=== PATIENT | female | born 1995 | race Caucasian/White ===

== ENCOUNTER → 2018-03-22 09:44 | Outpatient (CLI) | payer OTHER, SELFPAY ==
[2018-03-22 12:58] LABS: Anion Gap 9 (5-15); BUN 9 mg/dL (7-18); BUN/Creat Ratio 13.8 RATIO (10-20); Calcium,Total 8.3 mg/dL (8.5-10.1); Chloride 108 mmol/L (98-107); Cholesterol 116 mg/dL (200); Creatinine, Serum 0.65 mg/dL (0.55-1.02); EST Glomerular Filtration Rate 117 mL/min (>60); Est Glom Filt Rate - Afr Amer 142 mL/min (>60); Glucose 95 mg/dL (74-106); High Density Lipoprotein 43 mg/dL; Potassium 4.3 mmol/L (3.5-5.1); Sodium Level 144 mmol/L (136-145); Triglycerides 33 mg/dL; Very Low Density Lipoprotein 7 mg/dL (5-40)
== END ==
PROVIDERS: Visit Provider Family Medicine
DX: Z02.9 Encounter for administrative examinations, unspecified (principal)
CPT/HCPCS: 36415; 80048; 80061

== ENCOUNTER → 2018-06-10 16:53 | Outpatient (CLI) | payer OTHER, SELFPAY ==
[2018-05-02 09:46] VITALS: BMI 19.8
--- NOTE | 2018-06-10 17:23 | MRI_ITS ---
STUDY: MRI BRAIN WITH AND WITHOUT CONTRAST REASON FOR EXAM: Female, 23 years old. Known syrinx and Chiari. Headache. Pressure. TECHNIQUE: Standardized multiplanar fat and water weighted pulse sequences were obtained. 7 ml of Gadavist contrast material was administered intravenously for the contrast portion of the examination. COMPARISON: None. FINDINGS: Normal size of the ventricles and extra-axial spaces for the patient's age. Normal white matter tracts of the supratentorial brain. Normal bilateral basal ganglia. Normal thalami. There is no extra-axial fluid accumulation. Normal flow voids within the major intracranial circulation suggesting patency by spin echo criteria. Normal venous enhancement. There is no enhancing intra-axial or extra-axial abnormality. Normal sella turcica, pituitary gland, infundibular stalk, optic chiasm and hypothalamus. Normal tectal plate and pineal gland. Normal midbrain, kathia and medulla. Mild inferior cerebellar tonsillar herniation below the hubbard magnum by a proximally 7.5 mm. This is not out of keeping with the clinical history of Chiari I anomaly. This is causing narrowing of the foramen magnum. Normal cerebellum. Normal basal cisterns. Normal bilateral temporal bones. Normal bilateral internal auditory canals. No demonstrated orbital abnormality, within the constraints of a routine brain study. Normal visualized paranasal sinuses. Normal calvarium and skull base. Normal visualized soft tissue structures. Normal visualized upper cervical spine. MRI/Brain W/WO Contrast IMPRESSION: 1. Mild Chiari I anomaly without visible syrinx of the upper cervical spinal cord. 2. Normal MRI of the brain with and without intravenous contrast. Electronically Signed: Pipo Jama MD at 19:12 EST , Service support ,
--- NOTE | 2018-06-10 17:23 | MRI_ITS ---
STUDY: MRI CERVICAL SPINE WITH AND WITHOUT CONTRAST REASON FOR EXAM: Female, 23 years old. Note syrinx and Chiari. Headache. Pressure. TECHNIQUE: Standardized fat and water weighted pulse sequences were obtained in the sagittal and axial following I.V. administration of 7 ml of Gadavist contrast material. COMPARISON: None FINDINGS: Midline herniation of the inferior cerebellar tonsil by 8 mm below the foramen magnum. This is suggestive of mild Chiari I anomaly. This is causing stenosis of the foramen magnum but no associated visible syrinx of the cervical spinal cord but there is syrinx of the thoracic spinal cord. Normal anterior atlantoaxial articulation. Normal odontoid process. Normal cervical lordosis. Normal vertebral bodies and posterior osseous elements. C2-3: Normal endplates. Normal disc height, signal and morphology. Normal central canal and intervertebral neural foramina. C3-4: Normal endplates. Normal disc height, signal and morphology. Normal central canal and intervertebral neural foramina. C4-5: Normal endplates. Normal disc height, signal and morphology. Normal central canal and intervertebral neural foramina. C5-6: Normal endplates. Normal disc height, signal and morphology. Normal central canal and intervertebral neural foramina. C6-7: Normal endplates. Normal disc height, signal and morphology. Normal central canal and intervertebral neural foramina. C7-T1: Normal endplates. Normal disc height, signal and morphology. Normal central canal and intervertebral neural foramina. Normal cervical cord. Normal visualized soft tissue structures. MRI/Spine Cervical W/WO Contrast IMPRESSION: 1. Mild Chiari I anomaly with foramen magnum stenosis but without associated syrinx of the cervical spinal cord. There is, however, nonneoplastic syrinx of the thoracic spinal cord. Please see separate MRI thoracic spine report. 2. Normal MRI of the cervical spine with and without contrast. Electronically Signed: Pipo Jama MD at 19:23 EST , Service support ,
--- NOTE | 2018-06-10 17:24 | MRI_ITS ---
STUDY: MRI LUMBAR SPINE WITH AND WITHOUT CONTRAST REASON FOR EXAM: Female, 23 years old. Note syrinx and Chiari anomaly. Headache. Back pain. TECHNIQUE: Standardized fat and water weighted pulse sequences were obtained in the sagittal and axial planes. 7 ml of Gadavist contrast material was administered for the contrast portion of the examination. COMPARISON: 10/22/2013. FINDINGS: T12-L1: Normal endplates. Normal disc height, hydration and morphology. Normal bilateral facet joints. Normal central canal and bilateral lateral recesses. Normal bilateral intervertebral neural foramina. Normal lumbar lordosis. There is no substantial scoliosis. Normal conus medullaris that terminates at the upper L1 vertebral body level. T11-T12: (Sagittal only). Normal endplates. Normal disc height, hydration and morphology. Normal central canal and bilateral intervertebral neural foramina. T12-L1: (Sagittal only). Normal endplates. Normal disc height, hydration and morphology. Normal central canal and bilateral intervertebral neural foramina. L1-2: Normal endplates. Normal disc height, hydration and morphology. Normal bilateral facet joints. Normal central canal and bilateral lateral recesses. Normal bilateral intervertebral neural foramina. L2-3: Normal endplates. Normal disc height, hydration and morphology. Normal bilateral facet joints. Normal central canal and bilateral lateral recesses. Normal bilateral intervertebral neural foramina. L3-4: Normal endplates. Normal disc height, hydration and morphology. Normal bilateral facet joints. Normal central canal and bilateral lateral recesses. Normal bilateral intervertebral neural foramina. L4-5: Normal endplates. Normal disc height, hydration and morphology. Normal bilateral facet joints. Normal central canal and bilateral lateral recesses. Normal bilateral intervertebral neural foramina. L5-S1: Normal endplates. Normal disc height, hydration and morphology. Normal bilateral facet joints. Normal central canal and bilateral lateral recesses. Normal bilateral intervertebral neural foramina. Normal visualized sacral ala. Normal visualized paraspinous soft tissue structures. No abnormal enhancing lesions intradural lesion extradurally. MRI/Spine Lumbar W/WO Contrast IMPRESSION: 1. Normal enhanced and unenhanced MR examination of the lumbar spine. 2. No interval change when compared to 10/22/2013. COMMENT: Please see MRI thoracic spine showing benign nonneoplastic syrinx of the thoracic spinal cord from at least T3 down to T12. This is related to known Chiari I anomaly. Electronically Signed: Pipo Jama MD at 19:32 EST , Service support ,
--- NOTE | 2018-06-10 17:24 | MRI_ITS ---
STUDY: MRI THORACIC SPINE WITH AND WITHOUT CONTRAST REASON FOR EXAM: Female, 23 years old. Known syrinx and Chiari anomaly. Headache. Back pain. TECHNIQUE: 7 ml of Gadavist was administered intravenously for the contrast portion of the examination. COMPARISON: 11/19/2013. FINDINGS: Normal kyphosis of the thoracic spine. There is no substantial scoliosis. T1-2, T2-3, T3-4, T4-5, T5-6, T6-7, T7-8, T8-9, T9-10, T10-11, T11-12: Normal endplates. Normal disc hydration, heights and morphology of the corresponding intervertebral discs. Normal central canal and intervertebral neural foramina at the corresponding levels. Nonexpansile midline syrinx from at least T3 down to T12 did not enhance with contrast. Normal conus medullaris that terminates at the upper L1 vertebral body level. The soft tissue structures are unremarkable. There is no enhancing abnormality. MRI/Spine Thoracic W/WO Contrast IMPRESSION: 1. 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 This is presumably related to known Chiari I anomaly. 2. No MRI evidence of thoracic extruded disc fragment, spinal stenosis or cord compressing lesion. 3. No interval change when compared to 11/19/2013. Electronically Signed: Pipo Jama MD at 19:29 EST , Service support ,
--- OUTSIDE RECORDS SUMMARY | 2018-08-05 23:00 | XMS RPT_ITS ---
:1995 Author Organization OHIP Care Team Providers Name Role Phone MAG FLAHERTY Attending Unavailable OPAL COOMBS Primary Care Unavailable OPAL COOMBS Admitting Unavailable MYLA LARA Attending Unavailable OPAL COOMBS A Primary Care Unavailable MAG FLAHERTY Consulting Unavailable OPAL COOMBS Primary Care Unavailable MAG FLAHERTY Attending Unavailable Warren Melendez Attending Unavailable Tommy Pizano Primary Care Unavailable Su Roger Attending Unavailable Tommy Pizano Referring Unavailable JARED KUO Attending Unavailable JARED KUO Referring Unavailable Warren Melnedez Primary Care Unavailable JARED KUO Consulting Unavailable JARED KUO Attending Unavailable JARED KUO Referring Unavailable Warren Melendez Primary Care Unavailable JARED KUO Consulting Unavailable PROBLEMS PROBLEMS DATE TYPE CONDITION / CODE ATTENDING STATUS SOURCE 10/30/2017 Working Abnormal MYLA LARA [facility] Diagnosis coagulation T Hospital profile / Repository R79.1(ICD-10) 08/18/2017 Final Diagnosis Abnormal REYNOLD, [facility] (Discharge) coagulation MAG B Hospital profile / Repository R79.1(ICD-10) PROCEDURES PROCEDURES No Procedure Records FoundRESULTS RESULTS BRAIN W/WO CONTRAST Observed: 06/10/2018 Status: F Source: IGLESIA 5:25 PM [facility] REPOSITORY [facility] Imaging Services [address] [place] [address] Brain W/WO Contrast MR#: [id number] Acct: [id number] Name: CECY GALLEGOS Rep #: [id number] : 1995 F 23 From: Pipo Jama MD PCP: Warren Melednez MD Status: REG CLI Study: Brain W/WO Contrast Date of Exam: 06/10/18 Exam# [id number] Ordering Dr: CARMELA POOLE STUDY: MRI BRAIN WITH AND WITHOUT CONTRAST REASON FOR EXAM: Female, 23 years old. Known syrinx and Chiari. Headache. Pressure. TECHNIQUE: Standardized multiplanar fat and water weighted pulse sequences were obtained. 7 ml of Gadavist contrast material was administered intravenously for the contrast portion of the examination. COMPARISON: None. FINDINGS: Normal size of the ventricles and extra-axial spaces for the patient's age. Normal white matter tracts of the supratentorial brain. Normal bilateral basal ganglia. Normal thalami. There is no extra-axial fluid accumulation. Normal flow voids within the major intracranial circulation suggesting patency by spin echo criteria. Normal venous enhancement. There is no enhancing intra-axial or extra-axial abnormality. Normal sella turcica, pituitary gland, infundibular stalk, optic chiasm and hypothalamus. Normal tectal plate and pineal gland. Normal midbrain, kathia and medulla. Mild inferior cerebellar tonsillar herniation below the hubbard magnum by a proximally 7.5 mm. This is not out of keeping with the clinical history of Chiari I anomaly. This is causing narrowing of the foramen magnum. Normal cerebellum. Normal basal cisterns. Normal bilateral temporal bones. Normal bilateral internal auditory canals. No demonstrated orbital abnormality, within the constraints of a routine brain study. Normal visualized paranasal sinuses. Normal calvarium and skull base. Normal visualized soft tissue structures. Normal visualized upper cervical spine. MRI/Brain W/WO Contrast IMPRESSION: 1. Mild Chiari I anomaly without visible syrinx of the upper cervical spinal cord. 2. Normal MRI of the brain with and without intravenous contrast. Electronically Signed: Pipo Jama MD at 19:12 EST , Service support , CC: CARMELA POOLE; Warren Melendez MD Ecclesiastical Worker: Signed SPINE CERVICAL W/WO Observed: 06/10/2018 Status: F Source: IGLESIA CONTRAST 5:25 PM [facility] REPOSITORY [facility] Imaging Services [address] [place] [address] Spine Cervical W/WO Contrast MR#: [id number] Acct: [id number] Name: CECY GALLEGOS Rep #: [id number] : 1995 F 23 From: Pipo Jama MD PCP: Warren Melendez MD Status: REG CLI Study: Spine Cervical W/WO Contrast Date of Exam: 06/10/18 Exam# [id number] Ordering Dr: CARMELA POOLE STUDY: MRI CERVICAL SPINE WITH AND WITHOUT CONTRAST REASON FOR EXAM: Female, 23 years old. Note syrinx and Chiari. Headache. Pressure. TECHNIQUE: Standardized fat and water weighted pulse sequences were obtained in the sagittal and axial following I.V. administration of 7 ml of Gadavist contrast material. COMPARISON: None FINDINGS: Midline herniation of the inferior cerebellar tonsil by 8 mm below the foramen magnum. This is suggestive of mild Chiari I anomaly. This is causing stenosis of the foramen magnum but no associated visible syrinx of the cervical spinal cord but there is syrinx of the thoracic spinal cord. Normal anterior atlantoaxial articulation. Normal odontoid process. Normal cervical lordosis. Normal vertebral bodies and posterior osseous elements. C2-3: Normal endplates. Normal disc height, signal and morphology. Normal central canal and intervertebral neural foramina. C3-4: Normal endplates. Normal disc height, signal and morphology. Normal central canal and intervertebral neural foramina. C4-5: Normal endplates. Normal disc height, signal and morphology. Normal central canal and intervertebral neural foramina. C5-6: Normal endplates. Normal disc height, signal and morphology. Normal central canal and intervertebral neural foramina. C6-7: Normal endplates. Normal disc height, signal and morphology. Normal central canal and intervertebral neural foramina. C7-T1: Normal endplates. Normal disc height, signal and morphology. Normal central canal and intervertebral neural foramina. Normal cervical cord. Normal visualized soft tissue structures. MRI/Spine Cervical W/WO Contrast IMPRESSION: 1. Mild Chiari I anomaly with foramen magnum stenosis but without associated syrinx of the cervical spinal cord. There is, however, nonneoplastic syrinx of the thoracic spinal cord. Please see separate MRI thoracic spine report. 2. Normal MRI of the cervical spine with and without contrast. Electronically Signed: Pipo Jama MD at 19:23 EST , Service support , CC: CARMELA Melendez MD Ecclesiastical Worker: Signed SPINE THORACIC W/WO Observed: 06/10/2018 Status: F Source: IGLESIA CONTRAST 5:25 PM [facility] REPOSITORY [facility] Imaging Services [address] [place] [address] Spine Thoracic W/WO Contrast MR#: [id number] Acct: [id number] Name: ELCECY Mirela Rep #: [id number] : 1995 F 23 From: Pipo Jama MD PCP: Warren Melendez MD Status: REG CLI Study: Spine Thoracic W/WO Contrast Date of Exam: 06/10/18 Exam# [id number] Ordering Dr: CARMELA POOLE STUDY: MRI THORACIC SPINE WITH AND WITHOUT CONTRAST REASON FOR EXAM: Female, 23 years old. Known syrinx and Chiari anomaly. Headache. Back pain. TECHNIQUE: 7 ml of Gadavist was administered intravenously for the contrast portion of the examination. COMPARISON: 11/19/2013. FINDINGS: Normal kyphosis of the thoracic spine. There is no substantial scoliosis. T1-2, T2-3, T3-4, T4-5, T5-6, T6-7, T7-8, T8-9, T9-10, T10- 11, T11-12: Normal endplates. Normal disc hydration, heights and morphology of the corresponding intervertebral discs. Normal central canal and intervertebral neural foramina at the corresponding levels. Nonexpansile midline syrinx from at least T3 down to T12 did not enhance with contrast. Normal conus medullaris that terminates at the upper L1 vertebral body level. The soft tissue structures are unremarkable. There is no enhancing abnormality. MRI/Spine Thoracic W/WO Contrast IMPRESSION: 1. 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 This is presumably related to known Chiari I anomaly. 2. No MRI evidence of thoracic extruded disc fragment, spinal stenosis or cord compressing lesion. 3. No interval change when compared to 11/19/2013. Electronically Signed: Pipo Jama MD at 19:29 EST , Service support , CC: CARMELA POOLE; Warren Melendez MD Ecclesiastical Worker: Signed SPINE LUMBAR W/WO Observed: 06/10/2018 Status: F Source: IGLESIA CONTRAST 5:25 PM [facility] REPOSITORY [facility] Imaging Services [address] [place] [address] Spine Lumbar W/WO Contrast MR#: [id number] Acct: [id number] Name: CECY GALLEGOS Rep #: [id number] : 1995 F 23 From: Pipo Jama MD PCP: Warren Melendez MD Status: REG CLI Study: Spine Lumbar W/WO Contrast Date of Exam: 06/10/18 Exam# [id number] Ordering Dr: CARMELA POOLE STUDY: MRI LUMBAR SPINE WITH AND WITHOUT CONTRAST REASON FOR EXAM: Female, 23 years old. Note syrinx and Chiari anomaly. Headache. Back pain. TECHNIQUE: Standardized fat and water weighted pulse sequences were obtained in the sagittal and axial planes. 7 ml of Gadavist contrast material was administered for the contrast portion of the examination. COMPARISON: 10/22/2013. FINDINGS: T12-L1: Normal endplates. Normal disc height, hydration and morphology. Normal bilateral facet joints. Normal central canal and bilateral lateral recesses. Normal bilateral intervertebral neural foramina. Normal lumbar lordosis. There is no substantial scoliosis. Normal conus medullaris that terminates at the upper L1 vertebral body level. T11-T12: (Sagittal only). Normal endplates. Normal disc height, hydration and morphology. Normal central canal and bilateral intervertebral neural foramina. T12-L1: (Sagittal only). Normal endplates. Normal disc height, hydration and morphology. Normal central canal and bilateral intervertebral neural foramina. L1-2: Normal endplates. Normal disc height, hydration and morphology. Normal bilateral facet joints. Normal central canal and bilateral lateral recesses. Normal bilateral intervertebral neural foramina. L2-3: Normal endplates. Normal disc height, hydration and morphology. Normal bilateral facet joints. Normal central canal and bilateral lateral recesses. Normal bilateral intervertebral neural foramina. L3-4: Normal endplates. Normal disc height, hydration and morphology. Normal bilateral facet joints. Normal central canal and bilateral lateral recesses. Normal bilateral intervertebral neural foramina. L4-5: Normal endplates. Normal disc height, hydration and morphology. Normal bilateral facet joints. Normal central canal and bilateral lateral recesses. Normal bilateral intervertebral neural foramina. L5-S1: Normal endplates. Normal disc height, hydration and morphology. Normal bilateral facet joints. Normal central canal and bilateral lateral recesses. Normal bilateral intervertebral neural foramina. Normal visualized sacral ala. Normal visualized paraspinous soft tissue structures. No abnormal enhancing lesions intradural lesion extradurally. MRI/Spine Lumbar W/WO Contrast IMPRESSION: 1. Normal enhanced and unenhanced MR examination of the lumbar spine. 2. No interval change when compared to 10/22/2013. COMMENT: Please see MRI thoracic spine showing benign nonneoplastic syrinx of the thoracic spinal cord from at least T3 down to T12. This is related to known Chiari I anomaly. Electronically Signed: Pipo Jama MD at 19:32 EST , Service support , CC: CARMELA POOLE; Warren Melendez MD Ecclesiastical Worker: Signed URGENT CARE VISIT Observed: 05/02/2018 Status: F Source: HOLIDAY REPORT 12:17 PM [facility] REPOSITORY [facility] [address] [place] [address] OFFICE VISIT Date of Service: 05/02/18 MR#: [id number] Acct: [id number] Name: CECY GALLEGOS Rep #: [id number] : 1995 Provider: Su Roger Age/Sex: 23/F Location: [facility] Status: Signed Intake Vital Signs05/02/18 Height 5 ft 5 in 05/02/18 Weight: 119 lb 05/02/18 Body Mass Index (BMI) 19.8 05/02/18 Blood Pressure 112/74 Intake Visit Reasons: RASH ON FACE Wardrobe Specialist Required: No Accompanied by: SELF Is patient in pain?: No Allergies banana Allergy (Mild, Verified 05/02/18 09:47) RASH Medications meloxicam 7.5 mg tablet 7.5 mg PO DAILY 05/02/18 [History Confirmed 05/02/18] triamcinolone acetonide 0.1 % topical cream 1 applic TOPICAL BID #30 g 05/02/18 [Rx Confirmed 05/02/18] [facility], [facility] Surgical History H/O wisdom tooth extraction (Acute) Family History Father , BLOOD CLOT BLOOD CLOT Social History Smoking Status: Never smoker alcohol intake: current alcohol intake frequency: a few times a month Alcohol type: wine HPI HPI Details: CECY GALLEGOS, is a 23 F who presents to the office today for an urgent appointment. Patient states that she started with a rash on her face earlier this week. It is gotten progressively worse. She notes that it is scaling and it mclean to touch. She has not used any vpef-kym-qtdrdte medications for this. She has tried cooking oil to help with moisturizer. She states that this mclean also when she uses it. She has discontinued her use of her previous cosmetics as this is not changed in recent months though. She has not had any fevers or chills. She does not have any body aches. She does not have any symptoms of a URI. ROS Const Constitutional: No anorexia, body ache, chills, fatigue, fever(s) or headache(s) Eyes Eyes: No discharge or eye pain ENT ENT: No headache(s), ear pain, ear pressure, tinnitus, dizziness/vertigo, nasal congestion, nasal discharge, sinus pressure, dental pain or facial pain Resp Respiratory: No cough or chest congestion Cardio Cardiology: No dyspnea on exertion, shortness of breath or irregular heart rhythm Gastro GI: No vomiting, diarrhea or heartburn Skin Skin: Positive for rash Neuro Neurology: No headache(s) Endo Endocrine: No fatigue Exam Const General: cooperative, no acute distress Orientation: alert, oriented x3 [facility] Head: atraumatic, normocephalic Ears: TM's normal bilaterally Nose: nasal mucous membranes and turbinates normal Mouth: moist mucous membranes Throat: posterior oropharynx normal Eyes Visual Covarrubias: normal visual covarrubias by confrontation Periorbital: periorbital findings normal Eyelids: eyelids normal Conjunctivae: conjunctivae normal Sclera: sclerae normal Cornea: corneas normal Pupils: PERRL EOM: EOM intact bilaterally Neck Neck: no lymphadenopathy, trachea midline, supple Neck mass: No Thyroid: thyroid normal Resp Effort AND Inspection: normal respiratory effort Auscultation: Bilateral: Clear to Auscultation Cardio Palpation: normal PMI Rate: regular rate Rhythm: regular rhythm Heart Sounds: S1 normal, S2 normal, no click, no gallops, no murmurs, no rubs GI Auscultation: normal bowel sounds Percussion: normal to percussion Palpation: soft, no hepatosplenomegaly, nontender Skin Rashes: rashes noted (red raised areas scattered aover face, scaley skin noted ) Neuro General: alert, oriented x3, CN's II-XI intact bilaterally, no focal motor deficits Assessment AND Plan Problems 1. Dermatitis L30.9 Plan suspect that this is likely related to eczema, advised to use cream as directed. advised that if not improved to see PCP or fundraising specialist Medications New: Coding Level of Care Code Off vis,new,level 3 Diagnoses Dermatitis L30.9 05/02/18 1217 <Electronically signed by Su WILLETT> Date Su WILLETT Cosigner Signature: Date (if applicable) CC: BASIC METABOLIC Collected: 03/22/2018 Status: F Source: IGLESIA PROFILE ([facility]) 9:46 AM [facility] REPOSITORY TYPE CODE TESTS RESULT OUT OF RANGE REFERENCE UNITS LAB L501.0100 74-106 mg/dL Normal GLU 95 Result Comment: Please note revised GLUCOSE reference range effective 2017. LAB L501.1000 7-18 mg/dL Normal BUN 9 LAB L501.1100 0.55-1.02 mg/dL Normal CREAT,SERUM 0.65 Result Comment: The validity of the calculated GFR AND GFRAA in patients over 70 years has not been determined. Clinical correlation is essential. LAB L501.1110 >60 mL/min Normal EST GFR 117 Result Comment: Non- GFR Calc LAB L501.1115 >60 mL/min Normal EST GFR - AA 142 Result Comment: GFR Calc LAB L501.1300 10-20 RATIO Normal BUN/CRE 13.8 LAB L501.2200 8.5-10.1 mg/dL Low CA 8.3 LAB L501.5300 136-145 mmol/L NA Normal 144 LAB L501.5600 3.5-5.1 mmol/L K Normal 4.3 LAB L501.5900 98-107 mmol/L High CL 108 LAB L501.6100 21.0-32.0 mmol/L Normal CO2 27.0 LAB L501.6200 5-15 Normal GAP 9 Performed By: #### L500.2500, L500.4100 #### [facility] [address] [facility] [facility] [place], [place], [id number] LIPID PROFILE Collected: 03/22/2018 Status: F Source: IGLESIA 9:46 AM [facility] REPOSITORY TYPE CODE TESTS RESULT OUT OF RANGE REFERENCE UNITS LAB L501.4900 200 mg/dL Normal CHOL 116 Result Comment: <200 mg/dL Desirable 200-240 mg/dL Borderline >240 mg/dL High Risk LAB L501.5000 mg/dL Normal TRIG 33 Result Comment: The drugs N-Acetylcysteine and Metamizole may falsely depress this assay. Serum Triglycerides Reference Interval Normal <150 mg/dL Borderline high 150 - 199 mg/dL High 200 - 499 mg/dL Very High > or = 500 mg/dL LAB L501.6400 mg/dL Normal HDL 43 Result Comment: The drugs N-Acetylcysteine and Metamizole may falsely depress this assay. Reference Range HDL <40 mg/dL Low HDL Cholesterol HDL >or= 60 mg/dL High HDL Cholesterol LAB L501.6500 0-130 mg/dL Normal LDL 66 LAB L501.6600 5-40 mg/dL Normal VLDL 7 Performed By: #### L500.2500, L500.4100 #### [facility] [address] [place], [place], [id number] HOMOCYSTEINE-SERUM Collected: Status: F Source: BLU 08/18/2017 9:00 AM [facility] REPOSITORY TYPE CODE TESTS RESULT OUT OF REFERENCE UNITS RANGE LAB HOMOCYSTEINEQ <10.4 umol/L 7.2 Homocystein e-Serum Result Comment: Homocysteine is increased by functional deficiency of folate or vitamin B12. Testing for methylmalonic acid differentiates between these deficiencies. Other causes of increased homocysteine include renal failure, folate antagonists such as methotrexate and phenytoin, and exposure to nitrous oxide. Test Performed by Ray Skelton, [facility], [address] [place] [id number] Stanley Villela M.D., Ph.D., Director of Laboratories , CLIA [id number] LAB 89662-1([facility]) a Age at Specimen Collection = Performed By: #### HOMOCYSTEINEQ #### [facility] [address] [place] [address] ALLERGIES ALLERGIES DATE TYPE / CODE NAME / CODE REACTION SEVERITY SOURCE 05/02/2018 Drug banana/F0060 Rash [facility] Allergy/4160 76414([facility] [address](SNOMED ) Repository CT) ENCOUNTERS ENCOUNTERS ADMIT/DISCHARGE ACCOUNT NUMBER ADMITTING ENCOUNTER LOCATION SOURCE CLASS 06/18/2018 [id number] Ambulatory [facility] Repository 06/11/2018 [id number] [facility] ding:MRI Repository 06/10/2018 [id number] [facility] ding:MRI Repository 05/02/2018/05/02/20 [id number] Ambulatory BMSBuilding: [address] Repository 03/22/2018 [id number] [facility] ding:MFPLAB Repository 10/30/2017/10/31/19 [id number] [facility], Ambulatory [address] ding:OPRoom: Repository CLBed: CL 08/18/2017/08/18/19 [id number] Ambulatory [address] Repository PAYERS PAYERS ENCOUNTER GUARANTOR PAYER SUBSCRIBER SOURCE 06/18/2018 CECY HARRISB: Primary CECY HARRISB: Blu [id number] Insurance:SHEILA [id number] [facility] [place], [place] Number: [place] Repository [address]Czh: [id number] [id number] () e Date:5279-62-13Wmri Name:ELADIO CRAWFORD [place], [place] [address]VQ: 06/18/2018 Secondary CECY Dietz BEAMDOB: [place] Insurance:[facility] [id number] [facility] Number: [facility] [id number] [place], [place] Repository Date:2473-78-60Pyes [address]247 Name:ELADIO CRAWFORD [id number] BOWMAN [address]YS: 06/11/2018 CECY GALLEGOS4842 [facility] Insurance:[facility] BEAMDOB: [facility] [id number] Hospital [address]Xjm: 330) SERVICESPolicy Repository [phone] () Number: [id number] e Date:1538-68-07JW [address] [address]UNDNF[place], [place] [address]IZ: CHECK WEBSITE 06/11/2018 Secondary NOT GIVENUNK [place] Insurance:SELF PAY [facility] Number: Effective Repository Date:2018-06-02 06/10/2018 CECY GALLEGOS4842 [facility] Insurance:[facility] MUTUAL BEAMDOB: [facility] [id number] Hospital [address]Yzp: (330) SERVICESPolicy Repository [phone] () Number: [id number] e Date:3643-20-68UR [address] [address], [place] [address]YP: CHECK WEBSITE 06/10/2018 Secondary NOT GIVENUNK [place] Insurance:SELF PAY [facility] Number: Effective Repository Date:2018-06-02 05/02/2018 CECY DASH [facility] [id number] Insurance:[facility] MUTUAL BEAMDOB: [facility] [id number] [facility] Repository [address]Pgl: (330) Number: [phone] () [id number] e Date:2937-62-11EF [address] [address], [place] [address]RB: CHECK WEBSITE 05/02/2018 Secondary NOT GIVENUNK [place] Insurance:SELF PAY [facility] Number: Effective Repository Date:2018-05-02 03/22/2018 CECY DASH Primary CECY DASH [place] [id number] UZIEL Insurance:MEDICAL BEAMDOB: [facility] [id number] Hospital [address]Bvj: (330) Number: Repository [phone] () [id number] e Date:9897-01-61FU [facility] [address] [address]LH: 03/22/2018 Secondary NOT GIVENUNK [place] Insurance:SELF PAY [facility] Number: Effective Repository Date:2018-03-22 10/30/2017 CECY Dietz BEAMDOB: Primary CECY Dietz BEAMDOB: [place] [id number] [facility] Insurance:AETNAPolic [id number] [place], [place] y Number: [facility] [address]Kpd: [id number] [place] [address] Repository [id number] () Date:4612-10-89Eocx Name:ELADIO CRAWFORD [id number] PAOLO HERNÁNDEZ [address]IU: 08/18/2017 CECY Dietz BEAMDOB: Primary CECY Dietz BEAMDOB: [place] [id number] [place] Insurance:ANTHEM [id number] [place], [place] BCBS- BCPolicy [facility] [address]Siu: Number: [place] [address] Repository [id number] () [id number] e Date:3362-81-94Bygr Name:ELADIO CRAWFORD [address], [place] [address]JG:
== END ==
PROVIDERS: Family Provider Family Medicine; PCP Family Medicine
DX: G95.0 Syringomyelia and syringobulbia (principal)
CPT/HCPCS: 70553; 72156; 72157; 72158; A9585

== ENCOUNTER → 2018-06-11 17:17 | Outpatient (CLI) | payer OTHER, SELFPAY ==
--- OUTSIDE RECORDS SUMMARY | 2018-08-06 16:31 | XMS RPT_ITS ---
[...] STATUS SOURCE 10/30/2017 Working Abnormal MYLA LARA [facility] Diagnosis coagulation T Hospital profile / Repository R79.1(ICD-10) 08/18/2017 Final Diagnosis Abnormal REYNOLD, [facility] (Discharge) coagulation MAG B Hospital profile / Repository R79.1(ICD-10) PROCEDURES PROCEDURES No Procedure Records FoundRESULTS RESULTS BRAIN W/WO CONTRAST Observed: 06/10/2018 Status: F Source: IGLESIA 5:25 PM [facility] REPOSITORY [facility] [address] [place] [address] Brain W/WO Contrast MR#: [id number] Acct: [id number] Name: CECY GALLEGOS Rep #: [id number] : 1995 F 23 From: Pipo Jama MD PCP: Warren Melendez MD Status: REG CLI Study: Brain W/WO Contrast Date of Exam: 06/10/18 Exam# [id number] Ordering Dr: CARMELA POOLE STUDY: MRI BRAIN [...] , CC: CARMELA POOLE; Warren Melendez MD Development Technical Lead: Signed SPINE CERVICAL W/WO Observed: 06/10/2018 Status: F Source: IGLESIA CONTRAST 5:25 PM [facility] REPOSITORY [facility] [address] [place] [address] Spine Cervical W/WO Contrast MR#: [id number] Acct: [id number] Name: CECY GALLEGOS Rep #: [id number] : 1995 F 23 From: Pipo Jama MD PCP: Warren Melendez MD Status: REG CLI Study: Spine Cervical W/WO Contrast Date of Exam: 06/10/18 Exam# [id number] Ordering Dr: CARMELA POOLE STUDY: MRI CERVICAL [...] Service support , CC: CARMELA Melendez MD Development Technical Lead: Signed SPINE THORACIC W/WO Observed: 06/10/2018 Status: F Source: IGLESIA CONTRAST 5:25 PM [facility] REPOSITORY [facility] [address] [place] [address] Spine Thoracic W/WO Contrast MR#: [id number] Acct: [id number] Name: ELCECY Mirela Rep #: [id number] : 1995 F 23 From: Pipo Jama MD PCP: Warren Melendez MD Status: REG CLI Study: Spine Thoracic W/WO Contrast Date of Exam: 06/10/18 Exam# [id number] Ordering Dr: CARMELA POOLE STUDY: MRI THORACIC [...] , CC: CARMELA POOLE; Warren Melendez MD Development Technical Lead: Signed SPINE LUMBAR W/WO Observed: 06/10/2018 Status: F Source: IGLESIA CONTRAST 5:25 PM [facility] REPOSITORY [facility] [address] [place] [address] Spine Lumbar W/WO Contrast MR#: [id number] Acct: [id number] Name: CECY GALLEGOS Rep #: [id number] : 1995 F 23 From: Pipo Jama MD PCP: Warren Melendez MD Status: REG CLI Study: Spine Lumbar W/WO Contrast Date of Exam: 06/10/18 Exam# [id number] Ordering Dr: CARMELA POOLE STUDY: MRI LUMBAR [...] , CC: CARMELA POOLE; Warren Melendez MD Development Technical Lead: Signed URGENT CARE VISIT Observed: 05/02/2018 Status: F Source: VANLUE REPORT 12:17 PM [facility] REPOSITORY [facility] [address] [place] [address] OFFICE VISIT Date of Service: 05/02/18 MR#: [id number] Acct: [id number] Name: CECY GALLEGOS Rep #: [id number] : 1995 Provider: Su Roger Age/Sex: 23/F Location: [facility] Status: Signed Intake Vital Signs05/02/18 Height 5 ft 5 in 05/02/18 Weight: 119 lb 05/02/18 Body Mass Index (BMI) 19.8 05/02/18 Blood Pressure 112/74 Intake Visit Reasons: RASH ON FACE [employer] Dean Required: No Accompanied by: SELF Is patient in pain?: No Allergies banana Allergy (Mild, Verified 05/02/18 09:47) RASH Medications meloxicam 7.5 mg tablet 7.5 mg PO DAILY 05/02/18 [History Confirmed 05/02/18] triamcinolone acetonide 0.1 % topical cream 1 applic TOPICAL BID #30 g 05/02/18 [Rx Confirmed 05/02/18] [facility] Surgical History H/O wisdom tooth extraction (Acute) [...] to touch. She has not used any smhc-xub-gludedm medications for this. She has tried cooking [...] no acute distress Orientation: alert, oriented x3 [facility] Head: atraumatic, normocephalic Ears: TM's normal bilaterally [...] if not improved to see PCP or director orange Medications New: Coding Level of Care Code Off vis,new,level 3 Diagnoses Dermatitis L30.9 05/02/18 1217 <Electronically signed by Su WILLETT> Date Su WILLETT Cosigner Signature: Date (if applicable) CC: BASIC METABOLIC Collected: 03/22/2018 Status: F Source: IGLESIA PROFILE ([facility]) 9:46 AM [facility] REPOSITORY TYPE CODE TESTS RESULT OUT OF [...] 9 Performed By: #### L500.2500, L500.4100 #### [facility] [address] [facility] [place], [place], [id number] LIPID PROFILE Collected: 03/22/2018 Status: F Source: IGLESIA 9:46 AM [facility] REPOSITORY TYPE CODE TESTS RESULT OUT OF [...] 7 Performed By: #### L500.2500, L500.4100 #### [facility] [address] [facility]. [place], [place], [id number] HOMOCYSTEINE-SERUM Collected: Status: F Source: BLU 08/18/2017 9:00 AM [facility] REPOSITORY TYPE CODE TESTS RESULT OUT [...] nitrous oxide. Test Performed by Ray Skelton, [facility], [address] [place] [address] Stanley Villela M.D., Ph.D., Director of Laboratories , CLIA [id number] LAB 94088-2([facility]) a Age at Specimen Collection = Performed By: #### HOMOCYSTEINEQ #### [facility] [address] [place] [address] ALLERGIES ALLERGIES DATE TYPE / CODE NAME / CODE REACTION SEVERITY SOURCE 05/02/2018 Drug banana/F0060 Rash [facility] Allergy/4160 43617([facility] [address](SNOMED ) Repository CT) ENCOUNTERS ENCOUNTERS ADMIT/DISCHARGE ACCOUNT NUMBER ADMITTING ENCOUNTER LOCATION SOURCE CLASS 06/18/2018 [id number] Ambulatory [facility] Repository 06/11/2018 [id number] [facility] ding:MRI Repository 06/10/2018 [id number] [facility] ding:MRI Repository 05/02/2018/05/02/20 [id number] Ambulatory BMSBuilding: [address] Repository 03/22/2018 [id number] [facility] ding:MFPLAB Repository 10/30/2017/10/31/19 [id number] [facility], Ambulatory [address] ding:OPRoom: Repository CLBed: CL 08/18/2017/08/18/19 [id number] Ambulatory [address] Repository PAYERS PAYERS ENCOUNTER GUARANTOR PAYER SUBSCRIBER SOURCE 06/18/2018 CECY HARRISB: Primary CECY HARRISB: Blu [id number] Insurance:SHEILA [id number] [facility] [place], [place] Number: [place] Repository [address]Kul: [id number] () e Date:[id number] Name:ELADIO CRAWFORD [address], [place] [address]HY: 06/18/2018 Secondary CECY Dietz BEAMDOB: [place] Insurance:[facility] [id number] [facility] Number: [facility] [id number] [place], [place] Repository Date:[id number] [address] Name:ELADIO CRAWFORD 427132FEPAOLO BOWMAN [address]MU: 06/11/2018 CECY GALLEGOS4842 [facility] Insurance:[facility] BEAMDOB: [facility] [id number] Hospital [address]Mae: 330) SERVICESPolicy Repository [phone] () Number: [id number] e Date:7058-11-30[address] [address], [place] [address]PR: CHECK WEBSITE 06/11/2018 Secondary NOT GIVENUNK [place] Insurance:SELF PAY [facility] Number: Effective Repository Date:2018-06-02 06/10/2018 CECY GALLEGOS4842 [facility] Insurance:[facility] [employer]UAL BEAMDOB: [facility] [id number] Hospital [address]Jpz: (330) SERVICESPolicy Repository [phone] () Number: [id number] e Date:6468-31-24[address] [address], [place] [address]YW: CHECK WEBSITE 06/10/2018 Secondary NOT GIVENUNK [place] Insurance:SELF PAY [facility] Number: Effective Repository Date:2018-06-02 05/02/2018 CECY DASH Primary [facility] [id number] Insurance:[facility] M[employer] BEAMDOB: Count includes the [facility] [id number] Repository [address]Ezl: (330) Number: [phone] () [id number] e Date:4981-77-85[address] [address], [place] [address]RC: CHECK WEBSITE 05/02/2018 Secondary NOT GIVENUNK [place] Insurance:SELF PAY [facility] Number: Effective Repository Date:2018-05-02 03/22/2018 CECY DASH Primary CECY DASH [place] [id number] UZ[place] Insurance:MEDICAL BEAMDOB: [facility] [id number] Hospital [address]Bzf: (330) Number: Repository [phone] () [id number] e Date:2278-26-64[facility] [address], [place] [address]SS: 03/22/2018 Secondary NOT GIVENUNK [place] Insurance:SELF PAY [facility] Number: Effective Repository Date:2018-03-22 10/30/2017 CECY Dietz BEAMDOB: Primary CECY Dietz BEAMDOB: [place] [id number] [facility] Insurance:AETNAPolic [id number] [place], [place] y Number: [facility] [id number]: [id number] [place] [address] Repository [id number] () Date:8245-99-31Tczz Name:ELADIO CRAWFORD [id number] PAOLO [place] [address]XQ: 08/18/2017 CECY Dietz BEAMDOB: Primary CECY Dietz BEAMDOB: [place] [id number] [place] Insurance:[employer] [id number] [place], [place] BCBS- BCPolicy [facility] [address]Cdq: Number: [place] [address] Repository [id number] () [id number] e Date:8237-53-64Telk Name:ELADIO CRAWFORD [address], [place] [address]CL:
== END ==
PROVIDERS: Family Provider Family Medicine; PCP Family Medicine
DX: G95.0 Syringomyelia and syringobulbia (principal)

== ENCOUNTER 2018-09-01 17:00 | Outpatient (RCR) | payer OTHER, SELFPAY ==
--- NOTE | 2018-08-03 13:14 | HP.PTEVAL_ITS ---
Patient's Visit Information CECY GALLEGOS is a 23 year old F referred to Physical Therapy by CORBY BUNCH with a diagnosis of Arnold Chiari syndrome. Date of Evaluation: 07/28/18 Physical Therapist: Dat Ledesma DPT - Visit Plan Frequency: 2x /Week Duration: 4-6 Weeks Plan: Start with DN throughout scapular region, cervical spine and suboccipital region. Add in postural strengthening as tolerated. Exercise guidleines given, follow to tolerance. May progress as tolerated. - Subjective Findings: Pt. is here today for her initial evaluation with diagnosis of Arnold Chiari syndrome. Pt. reports her main symptoms being frequent headaches. Pt. has diagnosed with a syrinx then with chiari syndrome. Pt. was oringially recomended to hav surgery, but then was suggested to work on posture and muscle tension reduction by alternate physician. Pt. is a [employer] by trade working in [employer] system. She enjoys running and working out, but reports being tentative to complete due to thinking this may trigger her symptoms. Pt. has trialed dry needling with good succces and has started working on postural exercises on own. Pt. reports headaches starting in back of head and wrapping to temporal region and behind both eyes. Pt. is hopeful to reduce symptoms in order to get back to all recreational activities without limitations. - Pain Headache Pain Intensity (Out of 10): 3 Pain Intensity Range: 1, 8 - Objective POSTURE: Pt. has sligth FH posture. She also has rounded shoulders with protracted scapulea bilaterally. Pt. is able to correct, but difficult to maintain. PALPATION: Pt. has increased tenderness at bilateral UT, bilateral levator scapulea, bilatera cervical erector spinea and bilateral suboccipital muscles. NEURO: PT. has normal DTR and normal sensation of bilateral LEs. Pt. has no signs of upper limb tension. ROM: CERVICAL SPINE: normal ROM, tigntness reported, but motion with normal. Pt. has normal shoulder ROm without issues. MMT: Pt. has 5-/5 general strength throughout upper body, no increase in symptoms with MMT. Pt. has difficutly maintaining proper posture with exercises and upper body movements. GAIT: Normal gait pattern noted. STAIRS: Pt. reports no pain or issues with negotiation. Reciprocal pattern. - Goals Goal 1:: Pt. to be I with HEP. Goal Time Frame: 4-6 Weeks Goal 2:: Pt. to have decreased KOLB to 0-2/10 with daily activities. Goal Time Frame: 4-6 Weeks Goal 3:: Pt. to have reduced KOLB frequency to 1-2 per week allowing for increased quality of life. Goal Time Frame: 4-6 Weeks Goal 4:: Pt. to demonstrate improved posture throughout PT sessino indicating increased postural awareness. Goal Time Frame: 4-6 Weeks - Rehabilitation Potential Physical Therapy Diagnosis: Pt. has signs and symptoms consistent with Arnold Chiari syndrome. Pt. has poor posture throughout upper body, increased KOLB and dififculty maintaining proper posture during exercises and work related activities. Pt. would benefit from PT to reduce muscle tension and improve posture with daily activities and exercise. Rehabilitation Potential: Good - Anticipated Interventions Patient/Client Instruction: Educate patient on: Condition, Plan of Care, Risk Factors, Benefits of Fitness Program For the Purpose of:: To improve decision making, To facilitate caregiver knowledge, To improve self management, To prevent re-injury, To improve ability to perform tasks related to life management, To improve tolerance to ADL's Therapeutic Exercise to Include: Strength training, Power training, Endurance training, Postural training, Flexibilty training, Passive ROM, Active ROM, Scapular Strength/Stabilization For the Purpose of:: To decrease pain, To increase ROM, To improve nutrient delivery to tissue, To increase oxygenation perfusion, To improve muscle performance and motor function, To improve ability to perform ADL's, To improve health of tissue, To decrease soft tissue restriction, To increase flexi bility/ROM Manual Therapy Techniques to Include: Passive ROM, Functional dry needling, Soft tissue mobilization For the Purpose of:: To decrease pain, To decrease swelling/inflammation, To increase ROM, To improve nutrient delivery to tissue, To increase oxygenation perfusion, To improve health of tissue, To decrease soft tissue restriction, To increase flexibility/ROM Thank you for the opportunity to evaluate your patient. For Medicare and Medicare HMO plans, please review the plan of care and approve it. It will need to be FAXED BACK to us at [phone] for Medicare purposes. For Medicare only, by signing this I certify the plan of care. Please let me know if there are questions or concerns regarding this plan of care. Physician Signature: Date:
--- OUTSIDE RECORDS SUMMARY | 2018-10-02 16:46 | XMS RPT_ITS ---
:1995 Author Organization OHIP Care Team Providers Name Role Phone MAG FLAHERTY Attending Unavailable OPAL COOMBS Primary Care Unavailable OPAL COOMBS Admitting Unavailable MYLA LARA Attending Unavailable OPAL COOMBS Primary Care Unavailable MAG FLAHERTY Consulting Unavailable OPAL COOMBS Primary Care Unavailable MAG FLAHERTY Attending Unavailable JARED KUO Attending Unavailable JARED KUO Referring Unavailable Warren Melendez Primary Care Unavailable JARED KUO Consulting Unavailable Warren Melendez Attending Unavailable Tommy Pizano Primary Care Unavailable Su Roger Attending Unavailable Tommy Pizano Referring Unavailable JARED KUO Attending Unavailable JARED KUO Referring Unavailable Warren Melendez Primary Care Unavailable JARED KUO Consulting Unavailable JARED KUO Attending Unavailable JARED KUO Referring Unavailable MelendezWarren fonseca Primary Care Unavailable JARED KUO Consulting Unavailable PROBLEMS PROBLEMS DATE TYPE CONDITION / CODE ATTENDING STATUS SOURCE 10/30/2017 Working Abnormal MYLA LARA [facility] Diagnosis coagulation T Hospital profile / Repository R79.1(ICD-10) 08/18/2017 Final Diagnosis Abnormal REYNOLD [facility] (Discharge) coagulation MAG B Hospital profile / Repository R79.1(ICD-10) PROCEDURES PROCEDURES No Procedure Records FoundRESULTS RESULTS INITAL EVALUATION (1) Observed: 08/03/2018 Status: F Source: [place] - PT 1:14 PM [facility] REPOSITORY [facility] Physical [facility] [address] [place] [address] Rd. [address] [place] [address] / REHABILITATION SERVICES INITIAL EVALUATION MR#: [id number] Acct: [id number] Name: CECY GALLEGOS Rep #: [id number] : 1995 23 From: Dat Ledesma DPT Referring DrMaureen: Status: REG RCR Insurance: [facility] SERVICES SELF PAY INSURANCE Patient's Visit Information CECY GALLEGOS is a 23 year old F referred to Physical Therapy by CORBY BUNCH with a diagnosis of Arnold Chiari syndrome. Date of Evaluation: 07/28/18 Physical Therapist: Dat Ledesma DPT - Visit Plan Frequency: 2x /Week Duration: 4-6 Weeks Plan: Start with DN throughout scapular region, cervical spine and suboccipital region. Add in postural strengthening as tolerated. Exercise guidleines given, follow to tolerance. May progress as tolerated. - Subjective Findings: Pt. is here today for her initial evaluation with diagnosis of Arnold Chiari syndrome. Pt. reports her main symptoms being frequent headaches. Pt. has diagnosed with a syrinx then with chiari syndrome. Pt. was oringially recomended to hav surgery, but then was suggested to work on posture and muscle tension reduction by alternate physician. 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 She enjoys running and working out, but reports being tentative to complete due to thinking this may trigger her symptoms. Pt. has trialed dry needling with good succces and has started working on postural exercises on own. Pt. reports headaches starting in back of head and wrapping to temporal region and behind both eyes. Pt. is hopeful to reduce symptoms in order to get back to all recreational activities without limitations. - Pain Headache Pain Intensity (Out of 10): 3 Pain Intensity Range: 1, 8 - Objective POSTURE: Pt. has sligth FH posture. She also has rounded shoulders with protracted scapulea bilaterally. Pt. is able to correct, but difficult to maintain. PALPATION: Pt. has increased tenderness at bilateral UT, bilateral levator scapulea, bilatera cervical erector spinea and bilateral suboccipital muscles. NEURO: PT. has normal DTR and normal sensation of bilateral LEs. Pt. has no signs of upper limb tension. ROM: CERVICAL SPINE: normal ROM, tigntness reported, but motion with normal. Pt. has normal shoulder ROm without issues. MMT: Pt. has 5-/5 general strength throughout upper body, no increase in symptoms with MMT. Pt. has difficutly maintaining proper posture with exercises and upper body movements. GAIT: Normal gait pattern noted. STAIRS: Pt. reports no pain or issues with negotiation. Reciprocal pattern. - Goals Goal 1:: Pt. to be I with HEP. Goal Time Frame: 4-6 Weeks Goal 2:: Pt. to have decreased KOLB to 0-2/10 with daily activities. Goal Time Frame: 4-6 Weeks Goal 3:: Pt. to have reduced KOLB frequency to 1-2 per week allowing for increased quality of life. Goal Time Frame: 4-6 Weeks Goal 4:: Pt. to demonstrate improved posture throughout PT sessino indicating increased postural awareness. Goal Time Frame: 4-6 Weeks - Rehabilitation Potential Physical Therapy Diagnosis: Pt. has signs and symptoms consistent with Arnold Chiari syndrome. Pt. has poor posture throughout upper body, increased KOLB and dififculty maintaining proper posture during exercises and work related activities. Pt. would benefit from PT to reduce muscle tension and improve posture with daily activities and exercise. Rehabilitation Potential: Good - Anticipated Interventions Patient/Client Instruction: Educate patient on: Condition, Plan of Care, Risk Factors, Benefits of Fitness Program For the Purpose of:: To improve decision making, To facilitate caregiver knowledge, To improve self management, To prevent re-injury, To improve ability to perform tasks related to life management, To improve tolerance to ADL's Therapeutic Exercise to Include: Strength training, Power training, Endurance training, Postural training, Flexibilty training, Passive ROM, Active ROM, Scapular Strength/Stabilization For the Purpose of:: To decrease pain, To increase ROM, To improve nutrient delivery to tissue, To increase oxygenation perfusion, To improve muscle performance and motor function, To improve ability to perform ADL's, To improve health of tissue, To decrease soft tissue restriction, To increase flexibility/ROM Manual Therapy Techniques to Include: Passive ROM, Functional dry needling, Soft tissue mobilization For the Purpose of:: To decrease pain, To decrease swelling/inflammation, To increase ROM, To improve nutrient delivery to tissue, To increase oxygenation perfusion, To improve health of tissue, To decrease soft tissue restriction, To increase flexibility/ROM Thank you for the opportunity to evaluate your patient. For Medicare and Medicare HMO plans, please review the plan of care and approve it. It will need to be FAXED BACK to us at [phone] for Medicare purposes. For Medicare only, by signing this I certify the plan of care. Please let me know if there are questions or concerns regarding this plan of care. Physician Signature: Date: <Electronically signed by Dat Ledesma DPT> 08/03/18 1314 CC: Warren Melendez MD; CORBY BUNCH CLS Signed BRAIN W/WO CONTRAST Observed: 06/10/2018 Status: F Source: [place] 5:25 PM [facility] REPOSITORY [facility] Imaging Services [address] [place] [address] Brain W/WO Contrast MR#: [id number] Acct: [id number] Name: CECY GALLEGOS Rep #: [id number] : 1995 F 23 From: Pipo Jama MD PCP: Warren Melendez MD Status: REG CLI Study: Brain W/WO Contrast Date of Exam: 06/10/18 Exam# [id number] Ordering Dr: CARMELA POOLE STUDY: MRI BRAIN [...] , CC: CARMELA POOLE; Warren Melendez MD Waiver Analyst: Signed SPINE CERVICAL W/WO Observed: 06/10/2018 Status: F Source: [place] CONTRAST 5:25 PM [facility] REPOSITORY [facility] Imaging Services [address] [place] [address] Spine Cervical W/WO Contrast MR#: [id number] Acct: [id number] Name: CECY GALLEGOS Rep #: [id number] : 1995 F 23 From: Pipo Jama MD PCP: Warren Melendez MD Status: REG CLI Study: Spine Cervical W/WO Contrast Date of Exam: 06/10/18 Exam# [id number] Ordering Dr: CARMELA POOLE STUDY: MRI CERVICAL [...] , CC: CARMELA POOLE; Warren Melendez MD Waiver Analyst: Signed SPINE THORACIC W/WO Observed: 06/10/2018 Status: F Source: [place] CONTRAST 5:25 PM [facility] REPOSITORY [facility] Imaging Services [address] [place] [address] Spine Thoracic W/WO Contrast MR#: [id number] Acct: [id number] Name: CECY GALLEGOS Rep #: [id number] : 1995 F 23 From: Pipo Jama MD PCP: Warren Melendez MD Status: REG CLI Study: Spine Thoracic W/WO Contrast Date of Exam: 06/10/18 Exam# [id number] Ordering Dr: CARMELA POOLE STUDY: MRI THORACIC [...] , CC: CARMELA POOLE; Warren Melendez MD Waiver Analyst: Signed SPINE LUMBAR W/WO Observed: 06/10/2018 Status: F Source: [place] CONTRAST 5:25 PM [facility] REPOSITORY [facility] Imaging Services [address] [place] [address] Spine Lumbar W/WO Contrast MR#: [id number] Acct: [id number] Name: CECY GALLEGOS Rep #: [id number] : 1995 F 23 From: Pipo Jama MD PCP: Warren Melendez MD Status: REG CLI Study: Spine Lumbar W/WO Contrast Date of Exam: 06/10/18 Exam# [id number] Ordering Dr: CARMELA POOLE STUDY: MRI LUMBAR [...] , CC: CARMELA POOLE; Warren Melendez MD Waiver Analyst: Signed URGENT CARE VISIT Observed: 05/02/2018 Status: F Source: [place] REPORT 12:17 PM [facility] REPOSITORY [facility] [address] [place] [address] [address] [place] [address] OFFICE VISIT Date of Service: 05/02/18 MR#: [id number] Acct: [id number] Name: CECY GALLEGOS Rep #: [id number] : 1995 Provider: Su Roger Age/Sex: 23/F Location: [facility] [place] [place] Status: Signed Intake Vital Signs05/02/18 Height 5 ft 5 in 05/02/18 Weight: 119 lb 05/02/18 Body Mass Index (BMI) 19.8 05/02/18 Blood Pressure 112/74 Intake Visit 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 She has not used any etjv-zvh-lfxhhat medications for this. She has tried cooking [...] no acute distress Orientation: alert, oriented x3 HENMT Head: atraumatic, normocephalic Ears: TM's normal bilaterally [...] if not improved to see PCP or mixer operator tablets Medications New: Coding Level of Care Code Off vis,new,level 3 Diagnoses Dermatitis L30.9 05/02/18 1217 <Electronically signed by Su WILLETT> Date Su WILLETT Cosigner Signature: Date (if applicable) CC: BASIC METABOLIC Collected: 03/22/2018 Status: F Source: [place] PROFILE ([facility]) 9:46 AM [facility] REPOSITORY TYPE CODE TESTS RESULT OUT OF [...] 9 Performed By: #### L500.2500, L500.4100 #### [facility] Laboratory [address] [place], [place], [address] LIPID PROFILE Collected: 03/22/2018 Status: F Source: [place] 9:46 AM [facility] REPOSITORY TYPE CODE TESTS RESULT OUT OF [...] 7 Performed By: #### L500.2500, L500.4100 #### [facility] [address] [place], [address] HOMOCYSTEINE-SERUM Collected: Status: F [facility] 9:00 AM [facility] REPOSITORY TYPE CODE TESTS RESULT OUT OF REFERENCE UNITS RANGE LAB HOMOCYSTEINEQ <10.4 umol/L 7.2 Homocystein e-Serum Result Comment: Homocysteine is increased by functional deficiency of folate or vitamin B12. Testing for methylmalonic acid differentiates between these deficiencies. Other causes of increased homocysteine include renal failure, folate antagonists such as methotrexate and phenytoin, and exposure to nitrous oxide. Test Performed by [facility], [facility], [address] [place] [address] Stanley Villela M.D., Ph.D., Director of Laboratories , [facility] [id number] LAB [id number]([facility]) a Age at Specimen Collection = Performed By: #### HOMOCYSTEINEQ #### [facility] [address], [place] [address] ALLERGIES ALLERGIES DATE TYPE / CODE NAME / CODE REACTION SEVERITY SOURCE 05/02/2018 Drug banana/F0060 Rash [facility] Allergy/4160 03955([facility] Hospital [address](SNOMED ) Repository CT) ENCOUNTERS ENCOUNTERS ADMIT/DISCHARGE ACCOUNT NUMBER ADMITTING ENCOUNTER LOCATION SOURCE CLASS 08/06/2018 [id number] [facility] ding:PT Repository 06/18/2018 [id number] Ambulatory [facility] Repository 06/11/2018 [id number] Ambulatory [facility] ding:MRI Repository 06/10/2018 [id number] Ambulatory [facility] ding:MRI Repository 05/02/2018/05/02/20 [id number] Ambulatory BMSBuilding: [address] Repository 03/22/2018 [id number] [facility] ding:MFPLAB Repository 10/30/2017/10/31/19 [id number] [facility], Ambulatory [address] ding:OPRoom: Repository CLBed: CL 08/18/2017/08/18/[id number] Repository PAYERS PAYERS ENCOUNTER GUARANTOR PAYER SUBSCRIBER SOURCE 08/06/2018 CECY GALLEGOS4842 Primary [facility] BEAMDOB: [facility] [id number] Hospital [address]Ioh: (330) SERVICESPol[facility] Repository [phone] () Number: [id number] e Date:6143-71-88[address] [address], [place] [address]UP: CHECK WEBSITE 08/06/2018 Secondary NOT GIVENUNK [place] Insurance:SELF PAY [facility] Number: Effective Repository Date:2018-07-20 06/18/2018 CECY Mirela BEAMDOB: Primary CECY M BEAMDOB: Jonathon [id number] Insurance:[facility] [id number] [place], [place] Number: [place] Repository [address]Lph: [id number] [id number] () e Date:1395-23-25Rrtz Name:[address], [place] [address]AY: 06/18/2018 Secondary CECY Dietz BEAMDOB: Green [facility] [id number] [facility] Number: [facility] [id number] [place] Repository Date:4298-20-90Vfyk [address] Name:[address]ADIO [address] [address]DX: 06/11/2018 CECY DOWNS42 Primary [facility] Insurance:[facility] BEAMDOB: [facility] [id number] Hospital [address]Bgc: 330) SERVICESPolicy Repository [phone] () Number: [id number] e Date:5773-45-51[address] [address]QS[place], [place] [address]UT: CHECK WEBSITE 06/11/2018 Secondary NOT GIVENUNK [place] Insurance:SELF PAY [facility] Number: Effective Repository Date:2018-06-02 06/10/2018 CECY DOWNS42 Primary [facility] Insurance:[facility] BEAMDOB: [facility] [id number] Hospital [address]Dbu: (330) SERVICESPolicy Repository [phone] () Number: [id number] e Date:0746-37-49[address] [address], [place] [address]CY: CHECK WEBSITE 06/10/2018 Secondary NOT GIVENUNK [place] Insurance:SELF PAY [facility] Number: Effective Repository Date:2018-06-02 05/02/2018 CECY DASH Primary [facility] [id number] Insurance:[facility] MUTUAL BEAMDOB: [facility] [id number][facility] Hospital [facility]– MilwaukeePolic Repository [address]Xlb: (330) Number: [phone] () [id number] e Date:3982-73-73TK [address] [address]QKUSWPNBG, [place] [address]CN: CHECK WEBSITE 05/02/2018 Secondary NOT GIVENUNK [place] Insurance:SELF PAY [facility] Number: Effective Repository Date:2018-05-02 03/22/2018 CECY DASH Primary CECY Barcenasoster [id number] UZIEL Insurance:MEDICAL BEAMDOB: [facility] [id number] Hospital [address]Ldb: (330) Number: Repository [phone] () [id number] e Date:6672-11-90[address], [place] [address]RS: 03/22/2018 Secondary NOT GIVENUNK [place] Insurance:SELF PAY [facility] Number: Effective Repository Date:2018-03-22 10/30/2017 CECY Dietz BEAMDOB: Primary CECY Dietz BEAMDOB: Green [id number] [facility] Insurance:AETNAPolic [id number] [facility] [place] y Number: [facility] [address]Ipr: [id number] [facility] [place] [address] Repository [phone] () Date:8568-92-42Bqkp Name:[address] [address]ZH: 08/18/2017 CECY Dietz BEAMDOB: Primary CECY Dietz BEAMDOB: Green [id number] [place] Insurance:ANTHEM [id number] [facility], [place] BCBS- BCPolicy [facility] [address]Yai: Number: [facility] [address] Repository [id number] () [id number] e Date:1102-34-71Sxha Name:[address]FX[place], [place] [address]YV:
--- NOTE | 2018-10-18 10:51 | HP.PT.NRP ---
HP - Discharge Summary (1) - Patient Information CECY GALLEGOS was seen in my office for initial evaluation on 07/28/18. The following Plan of Care was established for this patient: Initial Frequency: 2x /Week Initial Duration: 4-6 Weeks - Anticipated Interventions Patient/Client Instruction: Educate patient on: Condition, Plan of Care, Risk Factors, Benefits of Fitness Program For the Purpose of:: To improve decision making, To facilitate caregiver knowledge, To improve self management, To prevent re-injury, To improve ability to perform tasks related to life management, To improve tolerance to ADL's Therapeutic Exercise to Include: Strength training, Power training, Endurance training, Postural training, Flexibilty training, Passive ROM, Active ROM, Scapular Strength/Stabilization For the Purpose of:: To decrease pain, To increase ROM, To improve nutrient delivery to tissue, To increase oxygenation perfusion, To improve muscle performance and motor function, To improve ability to perform ADL's, To improve health of tissue, To decrease soft tissue restriction, To increase flexibility/ROM Manual Therapy Techniques to Include: Passive ROM, Functional dry needling, Soft tissue mobilization For the Purpose of:: To decrease pain, To decrease swelling/inflammation, To increase ROM, To improve nutrient delivery to tissue, To increase oxygenation perfusion, To improve health of tissue, To decrease soft tissue restriction, To increase flexibility/ROM This patient was last seen in our office 09/01/18. Pertinent comments regarding their Physical therapy will appear below: Pt. was seen for her arnold chiari syndrome. Pt. was treated with DN, manual technique and postural exerices. Pt. was making some perogress, but was still concerned about her HAs and desired to have MRI. Pt. was to follow up with physician and then back with PT. Pt. has not been seen in ~6 weeks and will be DC from PT at this point in time. At this point I will be discontinuing this patient from physical therapy. I would be happy to see this patient again in the future if found appropriate by the physician. Thank you! Dat Ledesma, SANDRA
== END 2018-09-01 19:00 | disposition home or self-care (01) ==
LOC: PT 17:00
PROVIDERS: Family Provider Family Medicine; PCP Family Medicine
DX: G93.5 Compression of brain (principal)
CPT/HCPCS: 97110; 97140; 97161

== ENCOUNTER → 2018-10-26 17:17 | Outpatient (CLI) | payer OTHER, SELFPAY ==
[2018-10-26 15:50] VITALS: BMI 19.8
[2018-10-29 13:30] LABS: HPV Reflexed? NOT INDICATED
== END ==
PROVIDERS: Family Provider Family Medicine; PCP Family Medicine; Referring Provider Obstetrics & Gynecology; Visit Provider Obstetrics & Gynecology
DX: Z12.4 Encounter for screening for malignant neoplasm of cervix (principal)
CPT/HCPCS: 87624; 88175; G0145

== ENCOUNTER → 2019-03-21 15:58 | Outpatient (CLI) | payer OTHER, SELFPAY ==
[2018-10-26 15:50] VITALS: BMI 19.8
[2019-03-21 17:11] LABS: hCG Titer Quant., Serum < 1 mIU/mL (1-3)
== END ==
PROVIDERS: Family Provider Family Medicine; PCP Family Medicine; Referring Provider Obstetrics & Gynecology; Visit Provider Obstetrics & Gynecology
DX: N91.2 Amenorrhea, unspecified (principal)
CPT/HCPCS: 36415; 84702

== ENCOUNTER → 2019-04-07 16:54 | Outpatient (CLI) | payer OTHER, SELFPAY ==
[2019-04-07 15:15] VITALS: BMI 19.8
== END ==
PROVIDERS: Family Provider Family Medicine; PCP Family Medicine; Referring Provider Nurse Practitioner Women's Health; Visit Provider Nurse Practitioner Women's Health
DX: N90.89 Other specified noninflammatory disorders of vulva and perineum (principal)
CPT/HCPCS: 87255

== ENCOUNTER → 2019-05-20 09:32 | Outpatient (CLI) | payer OTHER, SELFPAY ==
[2019-04-25 14:13] VITALS: BMI 19.8
[2019-05-20 11:24] LABS: Anion Gap 7 (5-15); BUN 9 mg/dL (7-18); BUN/Creat Ratio 13.6 RATIO (10-20); Calcium,Total 8.9 mg/dL (8.5-10.1); Chloride 105 mmol/L (98-107); Cholesterol 131 mg/dL (200); Creatinine, Serum 0.66 mg/dL (0.55-1.02); EST Glomerular Filtration Rate 115 mL/min (>60); Est Glom Filt Rate - Afr Amer 139 mL/min (>60); Glucose 82 mg/dL (74-106); High Density Lipoprotein 45 mg/dL; Potassium 3.9 mmol/L (3.5-5.1); Sodium Level 140 mmol/L (136-145); Triglycerides 61 mg/dL; Very Low Density Lipoprotein 12 mg/dL (5-40)
[2019-05-21 11:40] LABS: HSV 1 IgG < 0.91 index (0.00-0.90); HSV 2 IgG < 0.91 index (0.00-0.90)
== END ==
PROVIDERS: Family Provider Family Medicine; PCP Family Medicine; Referring Provider Nurse Practitioner Women's Health; Visit Provider Nurse Practitioner Women's Health
DX: Z00.00 Encounter for general adult medical examination without abnormal findings (principal)
CPT/HCPCS: 36415; 80048; 80061; 82306; 84443; 86695; 86696

== ENCOUNTER 2019-08-17 16:00 | Outpatient (RCR) | payer OTHER, SELFPAY ==
[2019-04-25 14:13] VITALS: BMI 19.8
--- NOTE | 2019-08-31 11:56 | HP.PTEVAL_ITS ---
Patient's Visit Information CECY GALLEGOS is a 24 year old F referred to Physical Therapy by Warren Melendez MD with a diagnosis of Headaches. Date of Evaluation: 08/11/19 Physical Therapist: Dat Ledesma DPT - Visit Plan Frequency: 1x/Week Duration: 2-4 Months Plan: Start with DN and manual PT to work on tissue tension. Advise in exercises for posture as refresher for patient. - Subjective Findings: Pt. is here today for her initial evaluation with diagnosis of headaches. PMH: Chiari Malformation, been assessed by neruology. Pt. reports having frequent KOLB, with consistent increases. Pt. reports no trigger known. 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 Se has been able complete all recreational activity including running and gym strengtening, but does have increased symptoms with prolonged running. She reports no N/T. Pt. has had some success with DN previously and manaul techniques. She has been previously educated in postural strengthening which she continues to do. - Pain KOLB Pain Intensity (Out of 10): 5 Pain Intensity Range: 2, 10 - Objective POSTURE: Pt. has decent posture in sitting and standing, pt. has sign FH, but able to easity correct. PALPATION: Pt. is tender along B UT , B levator scapulea and B subocciptials. NEURO: Pt. has normal sensation adn normal DTR bilaterally UEs. ROM: CERVICAL SPINE: full ROM, incerase in symptoms with flexion and extension at end ragnes. Pt. has full ROM of B shoulders without increase in symptoms. MMT: Pt. has full strength throughout BUE and iso cervical spine 5/5. - Goals Goal 1:: LTG: Pt. to be I with HEP. Goal Time Frame: 4-6 Weeks Goal 2:: STG: Pt. to have 1-2 KOLB per week. Goal Time Frame: 2-4 Weeks Goal 3:: LTG: Pt. to complete all work and gym exercises daily with minmal increase in KOLB symptoms. Goal Time Frame: 4-6 Weeks Goal 4:: STG: Pt. to sleep throughout the night withotu increase in symptoms. Goal Time Frame: 2-4 Weeks - Rehabilitation Potential Physical Therapy Diagnosis: Pt. has signs and symptoms consistent with KOLB most likely due to her chiari formation. Pt. has good ROM and strength, but has some increased muscle tenion throughout her cervial spine and UT. Rehabilitation Potential: Good - Anticipated Interventions Patient/Client Instruction: Educate patient on: Condition, Plan of Care, Risk Factors, Benefits of Fitness Program For the Purpose of:: To foster healthy habits, To improve decision making, To facilitate caregiver knowledge, To improve self management, To prevent re- injury, To improve ability to perform tasks related to life management, To improve tolerance to ADL's Therapeutic Exercise to Include: Strength training, Power training, Endurance training, Balance training, Postural training, Flexibilty training, Passive ROM, Active ROM For the Purpose of:: To decrease pain, To increase ROM, To improve nutrient delivery to tissue, To increase oxygenation perfusion, To improve muscle performance and motor function Manual Therapy Techniques to Include: Mobilization, Passive ROM, Functional dry needling, Soft tissue mobilization For the Purpose of:: To decrease pain, To decrease swelling/inflammation, To increase ROM Thank you for the opportunity to evaluate your patient. For Medicare and Medicare HMO plans, please review the plan of care and approve it. It will need to be FAXED BACK to us at [phone] for Medicare purposes. For Medicare only, by signing this I certify the plan of care. Please let me know if there are questions or concerns regarding this plan of care. Physician Signature: Date:
--- NOTE | 2020-01-10 10:52 | HP.PTDCNRP_ITS ---
CECY GALLEGOS was seen in my office for initial evaluation on 08/11/19. The following Plan of Care was established for this patient: Initial Frequency: 1x/Week Initial Duration: 2-4 Months Patient/Client Instruction: Educate patient on: Condition, Plan of Care, Risk Factors, Benefits of Fitness Program For the Purpose of:: To foster healthy habits, To improve decision making, To facilitate caregiver knowledge, To improve self management, To prevent re- injury, To improve ability to perform tasks related to life management, To improve tolerance to ADL's Therapeutic Exercise to Include: Strength training, Power training, Endurance training, Balance training, Postural training, Flexibilty training, Passive ROM, Active ROM For the Purpose of:: To decrease pain, To increase ROM, To improve nutrient delivery to tissue, To increase oxygenation perfusion, To improve muscle performance and motor function Manual Therapy Techniques to Include: Mobilization, Passive ROM, Functional dry needling, Soft tissue mobilization For the Purpose of:: To decrease pain, To decrease swelling/inflammation, To increase ROM This patient was last seen in our office 08/17/19. Pertinent comments regarding their Physical therapy will appear below: Pt. has not been seen in several months and will be DC from PT at this point intime. At this point I will be discontinuing this patient from physical therapy. I would be happy to see this patient again in the future if found appropriate by the physician. Thank you! Dat Ledesma, SANDRA
== END 2019-08-17 19:00 | disposition home or self-care (01) ==
LOC: PT 16:00
PROVIDERS: PCP Family Medicine; Visit Provider Family Medicine
DX: R51 Headache (principal)
CPT/HCPCS: 97140; 97161

== ENCOUNTER → 2019-08-29 15:21 | Outpatient (CLI) | payer OTHER, SELFPAY ==
[2019-04-25 14:13] VITALS: BMI 19.8
[2019-08-29 16:19] LABS: hCG Titer Quant., Serum 373 mIU/mL (1-3)
[2019-09-01 15:32] LABS: Vitamin D 1,25-Dihydroxy 69.6 pg/mL (19.9-79.3)
== END ==
PROVIDERS: Nurse Practitioner Women's Health; PCP Family Medicine; Referring Provider Obstetrics & Gynecology; Visit Provider Obstetrics & Gynecology
DX: Z34.90 Encounter for supervision of normal pregnancy, unspecified, unspecified trimester (principal); R79.89 Other specified abnormal findings of blood chemistry
CPT/HCPCS: 36415; 82652; 84702

== ENCOUNTER → 2019-08-31 15:21 | Outpatient (CLI) | payer OTHER, SELFPAY ==
[2019-04-25 14:13] VITALS: BMI 19.8
[2019-08-31 16:04] LABS: hCG Titer Quant., Serum 770 mIU/mL (1-3)
== END ==
PROVIDERS: PCP Family Medicine; Referring Provider Obstetrics & Gynecology; Visit Provider Obstetrics & Gynecology
DX: O20.0 Threatened abortion (principal); Z3A.00 Weeks of gestation of pregnancy not specified
CPT/HCPCS: 36415; 84702

== ENCOUNTER → 2019-09-06 16:25 | Outpatient (CLI) | payer OTHER, SELFPAY ==
[2019-04-25 14:13] VITALS: BMI 19.8
[2019-09-06 17:57] LABS: hCG Titer Quant., Serum 7529 mIU/mL (1-3)
== END ==
PROVIDERS: PCP Family Medicine; Referring Provider Obstetrics & Gynecology; Visit Provider Obstetrics & Gynecology
DX: O20.0 Threatened abortion (principal); Z3A.00 Weeks of gestation of pregnancy not specified
CPT/HCPCS: 36415; 84702

== ENCOUNTER → 2019-09-16 12:54 | Outpatient (CLI) | payer OTHER, SELFPAY ==
[2019-09-16 12:38] VITALS: BMI 19.8
[2019-09-16 13:37] LABS: Absolute Lymphocyte Count 2.27 X10^3/uL (0.83-4.51); Absolute Neutrophil Count 6.7 X10^3/uL (2.0-7.7); Basophil# 0.05 X10^3/uL; Basophil% 0.5 % (0-1); Eosinophil# 0.15 X10^3/uL; Eosinophils% 1.5 % (0-5); Hematocrit 37.1 % (37-47); Hemoglobin 13.1 g/dL (12.0-15.0); Lymphocyte # 2.27 X10^3/ul (4.0); Lymphocyte % 22.5 % (19-41); Mean Corp Hgb Conc 35.3 g/dL (32-36); Mean Corpuscular Hgb 30.5 pg (27.0-32.0); Mean Corpuscular Volume 86.3 fL (81-99); Mean Platelet Vol. 9.5 fl (6.2-12.0); Monocyte# 0.94 X10^3/uL; Monocyte% 9.3 % (0-10); NRBC Flagged by Analyzer 0.2 % (0-5); Neutrophil # 6.66 X10^3/uL (2.7-7.7); Neutrophil % 65.8 % (47-70); Platelet Count 281 K/mm3 (150-450); RBC Distribution Width CV 11.3 % (11.6-14.6); RBC Distribution Width SD 35.7 fl (35.1-43.9); White Blood Count 10.1 K/mm3 (4.4-11.0)
[2019-09-16 14:52] LABS: HIV - WCH Non-Reactive (Nonreactive); Hepatitis B Surface Antigen Non-Reactive (Nonreactive); Hepatitis C Antibody Non-Reactive (Nonreactive); Rubella IgG 72.9 IU/mL
[2019-09-16 17:01] LABS: Amphetamine Urine VISTA NEGATIVE (<1000 ng/mL); Barbiturate Urine VISTA NEGATIVE (< 200 ng/mL); Benzodiazepine Urine VISTA NEGATIVE (< 200 ng/mL); Cocaine Urine VISTA NEGATIVE (< 300 ng/mL); Ecstacy Urine VISTA NEGATIVE (< 500 ng/mL); Methadone Urine VISTA NEGATIVE (< 300 ng/mL); PCP Urine VISTA NEGATIVE (< 25 ng/mL); THC Urine VISTA NEGATIVE (< 50 ng/mL); Vista UDS pH Range 7
[2019-09-16 18:47] LABS: Chlamydia Trachomatis by PCR Negative (Negative); Neisserai gonorrhoeae by PCR Negative (Negative); Probe Check PASS; Sample Adequacy Control PASS; Specimen Processing Control PASS
[2019-09-22 02:09] LABS: Rapid Plasmin Reagin (RPR) NONREACTIVE (NONREACTIVE)
== END ==
PROVIDERS: PCP Family Medicine; Referring Provider Obstetrics & Gynecology; Visit Provider Obstetrics & Gynecology
DX: Z34.90 Encounter for supervision of normal pregnancy, unspecified, unspecified trimester (principal)
CPT/HCPCS: 36415; 80307; 85025; 86592; 86703; 86762; 86803; 86850; 86900; 86901; 87086; 87340; 87491; 87591

== ENCOUNTER → 2019-11-03 18:34 | Outpatient (CLI) | payer OTHER, SELFPAY ==
[2019-11-03 11:27] VITALS: BMI 19.8
--- NOTE | 2019-11-03 18:38 | US_ITS ---
STUDY: SECOND AND THIRD TRIMESTER OBSTETRICAL ULTRASOUND - LIMITED REASON FOR EXAM: Female, 24 years old. Bleeding last night with pelvic pain. LMP: July 29, 2019. PRIOR ULTRASOUND: None. TECHNIQUE: Transabdominal and Transvaginal TECHNICAL QUALITY: Adequate. FINDINGS: There is a single intrauterine fetus. The fetus is in a breech presentation. There is demonstrated cardiac activity with a heart rate of 179 bpm. There is a normal amniotic fluid volume. The largest amniotic fluid pocket measures 3.1 cm. The placenta is anterior in location and is not low lying. There are Grade 0 placental changes. The cervix measures 3.4 cm cm in length. There is trace fluid within the cervical canal. BIOMETRY: BPD: 2.25 cm: 13 weeks, 6 days HC: 9.27 cm: 14 weeks, 2 days AC: 7.12 cm: 13 weeks, 5 days FL: 1.18 cm: 13 weeks, 4 days Age by LMP: 13 weeks, 6 days. GERMAN by LMP: May 04, 2020. age by current US: 13 weeks, 6 days. GERMAN by current US: May 04, 2020. Estimated weight: 80 grams, +/- 12 grams, 20 percentile. Gender: Indeterminant US/OB Limited With Biometrics IMPRESSION: 1. Live single intrauterine at 13 weeks, 6 days. GERMAN is May 04, 2020. 2. heart rate of 179 beats per minute. 3. EFW of 80 g. 4. Adequate amniotic fluid. 5. Breech presentation. 6. Trace fluid in the cervical canal. Electronically Signed: Reji Mccullough DO at 19:48 EDT Tel [phone], Service support ,
== END ==
PROVIDERS: PCP Family Medicine; Visit Provider Obstetrics & Gynecology
DX: O46.91 Antepartum hemorrhage, unspecified, first trimester (principal); Z3A.13 13 weeks gestation of pregnancy; O26.891 Other specified pregnancy related conditions, first trimester; R10.2 Pelvic and perineal pain
CPT/HCPCS: 76816

== ENCOUNTER → 2019-12-19 08:58 | Outpatient (CLI) | payer OTHER, SELFPAY ==
[2019-12-16 09:14] VITALS: BMI 19.8
[2019-12-19 09:55] LABS: Homocysteine 4.9 umol/L (3.2-10.7)
[2019-12-20 12:21] LABS: ANTINUCLEAR ANTIBODIES DIRECT Negative (Negative)
== END ==
PROVIDERS: PCP Family Medicine; Referring Provider Nurse Practitioner Women's Health; Visit Provider Nurse Practitioner Women's Health
DX: O99.350 Diseases of the nervous system complicating pregnancy, unspecified trimester (principal); G93.5 Compression of brain; Z3A.00 Weeks of gestation of pregnancy not specified
CPT/HCPCS: 36415; 83090; 86038; 86225; 86235

== ENCOUNTER → 2020-01-26 08:23 | Outpatient (CLI) | payer OTHER, SELFPAY ==
[2020-01-02 09:08] VITALS: BMI 19.8
[2020-01-26 08:39] LABS: Absolute Lymphocyte Count 1.48 X10^3/uL (0.83-4.51); Absolute Neutrophil Count 6.5 X10^3/uL (2.0-7.7); Basophil# 0.04 X10^3/uL; Basophil% 0.4 % (0-1); Eosinophil# 0.46 X10^3/uL; Hematocrit 32.4 % (37-47); Hemoglobin 11.2 g/dL (12.0-15.0); Lymphocyte # 1.48 X10^3/ul (4.0); Lymphocyte % 16.1 % (19-41); Mean Corp Hgb Conc 34.6 g/dL (32-36); Mean Corpuscular Hgb 31.5 pg (27.0-32.0); Mean Platelet Vol. 8.9 fl (6.2-12.0); Monocyte# 0.61 X10^3/uL; Monocyte% 6.6 % (0-10); NRBC Flagged by Analyzer 0 % (0-5); Neutrophil # 6.52 X10^3/uL (2.7-7.7); Neutrophil % 70.9 % (47-70); Platelet Count 250 K/mm3 (150-450); RBC Distribution Width CV 11.9 % (11.6-14.6); RBC Distribution Width SD 39.1 fl (35.1-43.9); Red Blood Count 3.56 M/mm3 (4.2-5.4); White Blood Count 9.2 K/mm3 (4.4-11.0)
[2020-01-26 08:56] LABS: Glucose Challenge Gest 1H 50g 121 mg/dL (70-140)
== END ==
PROVIDERS: PCP Family Medicine; Referring Provider Obstetrics & Gynecology; Visit Provider Obstetrics & Gynecology
DX: Z34.90 Encounter for supervision of normal pregnancy, unspecified, unspecified trimester (principal)
CPT/HCPCS: 36415; 82950; 85025

== ENCOUNTER → 2020-04-13 16:23 | Outpatient (CLI) | payer OTHER, SELFPAY ==
[2020-04-13 08:18] VITALS: BMI 25.9
[2020-04-13 08:41] VITALS: BMI 23.3
--- NOTE | 2020-04-13 16:25 | US_ITS ---
STUDY: SECOND AND THIRD TRIMESTER OBSTETRICAL ULTRASOUND REASON FOR EXAM: Female, 24 years old. Growth. Small for gestational age. LMP: 07/29/2019. TECHNIQUE: Transabdominal TECHNICAL QUALITY: Adequate. PRIOR ULTRASOUND: 11/03/2019. FINDINGS: There is a single intrauterine fetus. The fetus is in a breech presentation. There is demonstrated cardiac activity with a heart rate of 146 bpm. There is a normal amniotic fluid volume. The largest amniotic fluid pocket measures 4.86 cm. The amniotic fluid index (KANNAN) is 11.11 cm. The placenta is anterior in location and is not low lying. There are Grade 2 placental changes. The cervix measures 3.1 cm in length. The bilateral adnexal regions are normal. BIOMETRY: BPD: 8.88 cm: 36 weeks, 0 days HC: 33.25 cm: 38 weeks, 0 days AC: 30.84 cm: 34 weeks, 6 days FL: 0.69 cm: 34 weeks, 3 days CI: 77 FL/BPD: 75 FL/HC: FL/AC: 22 HC/AC: 1.08 age by current US: 35 weeks, 6 days. GERMAN by current US: 05/12/2020. Estimated weight: 2599 grams, +/- 379 grams, 13 %. age by prior US: 37 weeks, 0 days. GERMAN by prior US: 05/04/2020. Age by LMP: 37 weeks, 0 days. GERMAN by LMP: 05/04/2020. US/OB Limited With Biometrics IMPRESSION: 1. Live single intrauterine at 35 weeks, 6 days. GERMAN is 05/12/2020. This is 8 days behind expected gestational age by initial ultrasound. 2. EFW of 2599 g. This is at the 13th percentile. 3. KANNAN of 11.11 cm. 4. Anterior grade 2 placenta. 5. Breech presentation. Electronically Signed: Reji Mccullough DO at 21:13 EDT Tel [phone], Service support ,
== END ==
PROVIDERS: PCP Family Medicine; Referring Provider Obstetrics & Gynecology; Visit Provider Obstetrics & Gynecology
DX: O32.1XX0 Maternal care for breech presentation, not applicable or unspecified (principal)
CPT/HCPCS: 76816

== ENCOUNTER → 2020-04-13 | Outpatient (CLI) | payer OTHER, SELFPAY ==
[2020-04-13 08:41] VITALS: BMI 23.3
== END | disposition home or self-care (01) ==
LOC: LABSPEC 13:35
PROVIDERS: PCP Family Medicine; Referring Provider Obstetrics & Gynecology; Visit Provider Obstetrics & Gynecology
DX: Z34.93 Encounter for supervision of normal pregnancy, unspecified, third trimester (principal); Z3A.36 36 weeks gestation of pregnancy
CPT/HCPCS: 87081

== ENCOUNTER 2020-04-16 11:00 | Outpatient (CLI) | payer OTHER, SELFPAY ==
[2020-04-13 08:41] VITALS: BMI 23.3
[2020-04-16] MEDS: Lactated Ringers 1,000 ML 125 ML IV (11:40)
[2020-04-16 11:44] VITALS: BMI 25.7
--- NOTE | 2020-04-16 12:16 | HP.PCM_ITS ---
- Problem List (1) 36 weeks gestation of Status: Acute Comment: COVID TESTING ORDERED 04/12/2020sc (2) Breech presentation Status: Acute (3) Chiari malformation type I Status: Acute Comment: s/p MFM/neuro consult. MFM FU 28wk/cleared. okay for vaginal delivery route but s/p anesthesia consult recommens no regional anesthesia, general anesthesia if cs needed. Plans [facility] delivery (4) Family history of congenital heart defect Status: Acute Comment: nl per MFM, no additional imaging needed. (5) Status: Acute Qualifiers: Comment: Nl anatomy US. genetic, carrier, and ntd screening declined. 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 [Ecotrin] 81 mg PO DAILY@0800 03/14/20 [History Confirmed 04/13/20] Calcium Carbonate/Vitamin D3 [Calcium 250-Vit D3 125 Tablet] 1 ea PO DAILY 03/14/20 [History Confirmed 04/13/20] Last Menstral Period: 03/18/19 Zika: Zika virus screening: Negative : No PFSH PFSH Medical History Chiari I malformation (Acute) Hypermobility of joint (Acute) MTHFR mutation (Acute) Syrinx (Acute) Surgical History H/O wisdom tooth extraction (Acute) Family History Father , BLOOD CLOT BLOOD CLOT Social History (Updated 04/13/20 @ 09:[address] 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 Date Name GA/Weeks Outcome Route Bth Weight Gen Labor Lgth Anesthesia Del Locatn Provider FOB Unknown 03/2019 SAB spontaneous HPI 37 WK OB: Details: CECY GALLEGOS is a 24 year old at 37 weeks presents due to breech presentation. Patient had an ultrasound that confirmed normal fluid and normal growth on Thursday and is wanting to proceed with external cephalic version. OB Visit GERMAN Calculator Estimated Delivery Date Method Current WG Current Estimate 05/04/20 LMP (Certain) 37w 0d Expected Delivery Route/Plan Labor Preferences- signed up for CB classes labor support person: Tayo pain management options preferred: limited intervention cut cord/dad catch: yes : yes PP control planned: condoms discussed possible routes of delivery and associated risks: discussed possible delivery modalities and possible indications for each including R/B/A of , VAVD, and CS. questions answered. special requests: none Specific Issue/Plans flu vaccine: yes tdap vaccine yes rhogam: na LARC form signed: yes movement and labor precautions reviewed. Problem list reviewed and updated with the most current plan of care details and appropriate orders placed. Relevant counseling for the gestational age provided. Continue routine care and follow up unless otherwise noted in visit notes/problem list details Initial Weight: 115 lb Date EGA Weight BP Urine Prot Glucose FHR FuHt Pres Dilation Effaced St Visit Note 09/21/19 7w 5d 116/50 150 SM- presents for bleeding today- small subchorionic bleeding. viable iup seen fu in 2 weeks reviewed bleeding precautions 10/04/19 9w 4d 118 lb (+3 lb) 116/78 Trace Negative 180 SM- hematoma resolved reassuring no vb some cramping 10/25/19 12w 4d 115 lb 4 oz (+4 oz) 126/70 Negative Negative 168 MH-nausea improved. No VB, LOF. Has appt with MFM 12/12 US and consult felipe. 11/03/19 13w 6d 114 lb 2 oz (-14 oz) 118/76 161 0 MH-work in for dark VB this am. Had pressure yesterday. Brown mucoid discharge in vaginal. Cervix closed with no active bleeding. FHT easily found. Formal US today or tomorrow. 11/21/19 16w 3d 116 lb (+16 oz) 120/80 Negative Negative 160 150 SM- no vb SM- no vb, lof good fm no regular ctx 12/16/19 20w 0d 118 lb (+3 lb) 122/68 Negative Negative 148 MH-NO Vb. Saw MFM:needs fasting homcystein and CONSTANTINE. Not fasting today. Will do next week. Planned neuro consult. RTO 4 weeks 01/02/20 22w 3d 126 lb (+11 lb) 102/70 Negative Negative 145 22 SM- no vb lof good fm no regular ctx. s/p mfm consult 01/27/20 26w 0d 132 lb (+17 lb) Negative Negative 145 26 SM- presents for brown spotting, no ctx or lof, nl anatomy scan previously. reassuring FHT, no abdominal trauma or infectious symptoms. if persistent recommend US evaluation. rh positive 02/09/20 27w 6d 134 lb (+19 lb) 114/60 Negative Negative 144 28 MH-no further VB. Good FM. Has MFM followup next week. Nl 28wk labs. tdap 02/20/20 29w 3d 137 lb 4 oz (+22 lb 4 oz) 104/62 Negative Negative 138 29 MH-No VB, LOF. MFM F/U complete and normal. Has anesthesia consult scheduled. MH-No VB, LOF. MFM F/U complete and normal. Has anesthesia consult scheduled. CB class enc 03/05/20 31w 3d 139 lb (+24 lb) 126/70 Negative Negative 145 31 SM- no vb lof good fm no regular ctx 03/23/20 34w 0d 143 lb 2 oz (+28 lb 2 oz) 114/66 Negative Negative 140 32 Cephalic SM- no vb lof good fm no regular ctx. discussed delivery anesthesia options, patient to decide if she still desires delivery here at [facility] 04/02/20 35w 3d 145 lb (+30 lb) 112/70 Negative Negative 146 35 Cephalic MH-No VB, LOF. Good FM. Plans delivery at [facility]. 04/13/20 37w 0d 146 lb 4 oz (+31 lb 4 oz) 118/68 Negative Negative 145 33 Cephalic Breech 2 50 -2 Sm- no vb lof good fm no regular ctx GBS done Sm- no vb lof good fm no regular ctx GBS done. discussed ECV if desired, patient going to think about it. growth US at 430 ACOG First Trimester First Trimester: Desire for , Alcohol, Tobacco Cessation, Illicit/Recreational Drug/Substance Use, Intimate Partner Violence, Barriers to care, Unstable Housing, Communication Barriers, Environmental/Work Hazards, Anticipated Course of Care, Toxoplasmosis Precations, Use of Any medications, Sexual activity, Exercise, Dental Care, Sauna/Hot tub use, Seat Belt use, Childbirth classes/Hospital facilities, Travel, Indications for US and Screening for Aneuploidy Second Trimester Second Trimester: Signs and Symptoms of Labor, Selecting a care provider, Reproductive Life Planning, Care Planning, Depression/Anxiety and Intimate Partner Violence; discussed Tobacco Cessation Diagnostics Diagnostics Diagnostics Glucose 1 Hr 50 gm 121 mg/dL (70-140) 01/26/20 Hgb 11.2 g/dL (12.0-15.0) L 01/26/20 Hct 32.4 % (37-47) L 01/26/20 Details: HIV: Urine Culture: Sequential Screen: NIPT Screen: ROS Const Reports system reviewed and no additional complaints, except as documented Card Reports system reviewed and no additional complaints, except as documented Resp Reports system reviewed and no additional complaints, except as documented GI Reports system reviewed and no additional complaints, except as documented, Reports nausea Reports system reviewed and no additional complaints, except as documented Musc Reports system reviewed and no additional complaints, except as documented all other systems reviewed and negative Exam Const General: cooperative, healthy appearing, comfortable HENMT Head: normal to inspection Nose: external nose normal Face and sinus: normal facial exam Neck Neck: normal visual inspection, full ROM, no lymphadenopathy Thyroid: thyroid normal Chest Chest palpation & inspection: normal inspection of the chest Resp Effort & Inspection: normal respiratory effort GI Inspection: normal to inspection Palpation: soft, other (gravid uterus) Other: breech and small size for gestational age Other: Cervical Exam: 2 cm Extrem General: pedal edema Results POC Urinalysis 2 Dip (Clinic) Office Urine Glucose Negative Last Edit by Radha Chowdary on 04/13/20 08:23 Office Urine Protein Negative Last Edit by Radha Chowdary on 04/13/20 08:23 Assessment & Plan Problems 1. Z34.90 Nl anatomy US. genetic, carrier, and ntd screening declined. 2. Family history of congenital heart defect Z82.79 nl per MFM, no additional imaging needed. 3. Chiari malformation type I G93.5 s/p MFM/neuro consult. MFM FU 28wk/cleared. okay for vaginal delivery route but s/p anesthesia consult recommens no regional anesthesia, general anesthesia if cs needed. Plans [facility] delivery 4. Supervision of high-risk O09. PRR GERMAN 05/04/20 boy [place] 5. 36 weeks gestation of Z3A.36 COVID TESTING ORDERED 04/12/2020sc 6. Uterine size date discrepancy O26.849 recommend growth Us Orders Orders: POC Urinalysis 2 Dip (Clinic) Today Culture, Group B Streptococcus Today Z3A.36 OB Limited With Biometrics Today Z3A.36 Coding Level of Care Code OB Routine Diagnoses Z34.90 Family history of congenital heart defect Z82.79 Chiari malformation type I G93.5 Supervision of high-risk O09. 36 weeks gestation of Z3A.36 Uterine size date discrepancy O26.849
[2020-04-16] MEDS: Terbutaline 1 MG/ML Vial 0.25 MG SC (12:17)
--- NOTE | 2020-04-16 12:18 | PCM.OPRPT ---
Problem List (1) 36 weeks gestation of Status: Acute Comment: COVID TESTING ORDERED 04/12/2020sc (2) Breech presentation Status: Acute (3) Chiari malformation type I Status: Acute Comment: s/p MFM/neuro consult. MFM FU 28wk/cleared. okay for vaginal delivery route but s/p anesthesia consult recommens no regional anesthesia, general anesthesia if cs needed. Plans [facility] delivery (4) Family history of congenital heart defect Status: Acute Comment: nl per MFM, no additional imaging needed. (5) Status: Acute Qualifiers: Comment: Nl anatomy US. genetic, carrier, and ntd screening declined. (6) Supervision of high-risk Status: Acute Qualifiers: Comment: PRR GERMAN 05/04/20 boy Tayo (7) Uterine size date discrepancy Status: Acute Comment: recommend growth Us Report of Operation Date of Procedure: 04/16/20 Description of Surgical Findings:: Preprocedure diagnosis: Breech presentation Post procedure diagnosis: Vertex presentation Procedure: External cephalic version Surgeon: Pam Koo EBL: None Complications: None Anesthesia: None Special medications: Terbutaline Seizure details: The fetus was found to be in breech presentation informed by ultrasound. Patient had an IV in place, normal amniotic fluid, no contraindications to a vaginal delivery, and reactive nonstress test prior to the procedure. Patient was placed in the dorsal supine position after the terbutaline was given. Ultrasound gel was applied to the patient's abdomen and using constant upward pressure to elevate the buttocks out of the pelvic inlet constant pressure was applied to the buttocks and to the area behind the back of the neck and head to encourage a forward roll of the fetus. Constant pressure was applied and slowly the infant was converted to a vertex presentation. Bedside ultrasound was used to confirm vertex presentation and reassuring heart rate. Patient was replaced on the NST and monitored to assure reassuring status. No complications. Multi Select Codes - Urinary/Genital Urinary/Genital CPT Codes: 30089 ECV
[2020-04-16 13:40] VITALS: BP 121/71; PULSE 82
== END 2020-04-16 13:55 | disposition home or self-care (01) ==
LOC: WPPAT 11:36 → WP 11:57
PROVIDERS: PCP Family Medicine; Referring Provider Obstetrics & Gynecology; Visit Provider Obstetrics & Gynecology
DX: O32.1XX0 Maternal care for breech presentation, not applicable or unspecified (principal); Z79.82 Long term (current) use of aspirin; G93.5 Compression of brain; O26.843 Uterine size-date discrepancy, third trimester; Z3A.37 37 weeks gestation of pregnancy; Z82.79 Family history of other congenital malformations, deformations and chromosomal abnormalities
CPT/HCPCS: 59412; 96360; 96361; 36415; 59025; 59050; 96372; 99218; J7120; G0378

== ENCOUNTER 2020-04-29 12:35 | Inpatient (IN) | payer OTHER, SELFPAY ==
[2020-04-27 08:34] VITALS: BMI 27.1
[2020-04-29] VITALS (26 sets, daily range): BP systolic 113–154; BP diastolic 56–83; PULSE 58–80; TEMP 36.3–37.3; O2SAT 91–100; BMI 26.4
[2020-04-29 13:08] LABS: Absolute Neutrophil Count 6.3 X10^3/uL (2.0-7.7); Basophil# 0.04 X10^3/uL; Basophil% 0.4 % (0-1); Eosinophil# 0.15 X10^3/uL; Eosinophils% 1.7 % (0-5); Hematocrit 35.1 % (37-47); Hemoglobin 12.1 g/dL (12.0-15.0); Mean Corp Hgb Conc 34.5 g/dL (32-36); Mean Corpuscular Hgb 30.6 pg (27.0-32.0); Mean Corpuscular Volume 88.6 fL (81-99); Monocyte# 0.72 X10^3/uL; NRBC Flagged by Analyzer 0 % (0-5); Neutrophil # 6.28 X10^3/uL (2.7-7.7); Neutrophil % 70.1 % (47-70); Platelet Count 269 K/mm3 (150-450); RBC Distribution Width CV 12.1 % (11.6-14.6); RBC Distribution Width SD 38.5 fl (35.1-43.9); Red Blood Count 3.96 M/mm3 (4.2-5.4)
--- NOTE | 2020-04-29 14:33 | PCM.HPOB.BLA ---
- Problem List (1) SROM (spontaneous rupture of membranes) Status: Acute (2) 36 weeks gestation of Status: Acute Comment: COVID TESTING ORDERED 04/12/2020sc (3) Chiari malformation type I Status: Acute Comment: s/p MFM/neuro consult. MFM FU 28wk/cleared. okay for vaginal delivery route but s/p anesthesia consult recommens no regional anesthesia, general anesthesia if cs needed. Plans [facility] delivery (4) Family history of congenital heart defect Status: Acute Comment: nl per MFM, no additional imaging needed. (5) Status: Acute Qualifiers: Comment: Nl anatomy US. genetic, carrier, and ntd screening declined. (6) Supervision of high-risk Status: Acute Qualifiers: Comment: PRR GERMAN 05/04/20 boy [place] History and Physical Date of Admission: 04/29/20 Intake Vital Signs 04/27/20 Height 5 ft 3 in 04/27/20 Weight: 153 lb 04/27/20 BMI 27.1 04/27/20 BP 130/82 H Intake Visit Reasons: 39 WK OB Chief Complaint: est ob [employer] Required: No Is patient in pain?: No Allergies banana Allergy (Mild, Verified 04/27/20 08:34) RASH Medications vitamin#30 30 mg iron-10 mg iron-folic acid 1 mg-omg3 capsule 1 cap PO DAILY cap 04/07/19 history Confirmed 04/27/20 Aspirin E.C. Ecotrin 81 mg PO DAILY@0800 03/14/20 history Confirmed 04/27/20 Calcium Carbonate/Vitamin D3 calcium 250-Vit D3 125 Tablet 1 ea PO DAILY 03/14/20 history Confirmed 04/27/20 Last Menstral Period: 03/18/19 Zika: Zika virus screening: Negative : No PFSH PFSH Medical History Chiari I malformation (Acute) Hypermobility of joint (Acute) MTHFR mutation (Acute) Syrinx (Acute) Surgical History H/O wisdom tooth extraction (Acute) Family History Father , BLOOD CLOT BLOOD CLOT Social History (Updated 04/27/20 @ 08:[address] 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 Date Name GA/Weeks Outcome Route Bth Weight Infant Gen Labor Lgth Anesthesia Del Locatn Provider FOB Unknown 03/2019 SAB spontaneous HPI 39 WK OB: Details: CECY GALLEGOS is a 25 year old at 39 weeks presents in active labor with spontaneous rupture of membranes clear fluid OB Visit GERMAN Calculator Estimated Delivery Date Method Current WG Current Estimate 05/04/20 LMP (Certain) 39w 0d Expected Delivery Route/Plan Labor Preferences- signed up for CB classes labor support person: Tayo pain management options preferred: limited intervention cut cord/dad catch: yes : yes PP control planned: condoms discussed possible routes of delivery and associated risks: discussed possible delivery modalities and possible indications for each including R/B/A of , VAVD, and CS. questions answered. special requests: none Specific Issue/Plans flu vaccine: yes tdap vaccine yes rhogam: na LARC form signed: yes movement and labor precautions reviewed. Problem list reviewed and updated with the most current plan of care details and appropriate orders placed. Relevant counseling for the gestational age provided. Continue routine care and follow up unless otherwise noted in visit notes/problem list details Initial Weight: 115 lb Date EGA Weight BP Urine Prot Glucose FHR FuHt Pres Dilation Effaced St Visit Note 09/21/19 7w 5d 116/50 150 SM- presents for bleeding today- small subchorionic bleeding. viable iup seen fu in 2 weeks reviewed bleeding precautions 10/04/19 9w 4d 118 lb (+3 lb) 116/78 Trace Negative 180 SM- hematoma resolved reassuring no vb some cramping 10/25/19 12w 4d 115 lb 4 oz (+4 oz) 126/70 Negative Negative 168 MH-nausea improved. No VB, LOF. Has appt with MFM 12/12 US and consult felipe. 11/03/19 13w 6d 114 lb 2 oz (-14 oz) 118/76 161 0 MH-work in for dark VB this am. Had pressure yesterday. Brown mucoid discharge in vaginal. Cervix closed with no active bleeding. FHT easily found. Formal US today or tomorrow. 11/21/19 16w 3d 116 lb (+16 oz) 120/80 Negative Negative 160 150 SM- no vb SM- no vb, lof good fm no regular ctx 12/16/19 20w 0d 118 lb (+3 lb) 122/68 Negative Negative 148 MH-NO Vb. Saw MFM:needs fasting homcystein and CONSTANTINE. Not fasting today. Will do next week. Planned neuro consult. RTO 4 weeks 01/02/20 22w 3d 126 lb (+11 lb) 102/70 Negative Negative 145 22 SM- no vb lof good fm no regular ctx. s/p mfm consult 01/27/20 26w 0d 132 lb (+17 lb) Negative Negative 145 26 SM- presents for brown spotting, no ctx or lof, nl anatomy scan previously. reassuring FHT, no abdominal trauma or infectious symptoms. if persistent recommend US evaluation. rh positive 02/09/20 27w 6d 134 lb (+19 lb) 114/60 Negative Negative 144 28 MH-no further VB. Good FM. Has MFM followup next week. Nl 28wk labs. tdap 02/20/20 29w 3d 137 lb 4 oz (+22 lb 4 oz) 104/62 Negative Negative 138 29 MH-No VB, LOF. MFM F/U complete and normal. Has anesthesia consult scheduled. MH-No VB, LOF. MFM F/U complete and normal. Has anesthesia consult scheduled. CB class enc 03/05/20 31w 3d 139 lb (+24 lb) 126/70 Negative Negative 145 31 SM- no vb lof good fm no regular ctx 03/23/20 34w 0d 143 lb 2 oz (+28 lb 2 oz) 114/66 Negative Negative 140 32 Cephalic SM- no vb lof good fm no regular ctx. discussed delivery anesthesia options, patient to decide if she still desires delivery here at [facility] 04/02/20 35w 3d 145 lb (+30 lb) 112/70 Negative Negative 146 35 Cephalic MH-No VB, LOF. Good FM. Plans delivery at [facility]. 04/13/20 37w 0d 146 lb 4 oz (+31 lb 4 oz) 118/68 Negative Negative 145 33 Cephalic Breech 2 50 -2 Sm- no vb lof good fm no regular ctx GBS done Sm- no vb lof good fm no regular ctx GBS done. discussed ECV if desired, patient going to think about it. growth US at 430 04/20/20 38w 0d 148 lb (+33 lb) 128/82 Negative Negative 140 37 Cephalic 2 SM- no vb lof good fm no regular ctx 04/27/20 39w 0d 153 lb (+38 lb) 130/82 Negative Negative 140 37 Cephalic 3 60 -1 sm- NO VB LOF GOOD FM NO REGULAR CTX COVID TESTING THIS WEEK ACOG First Trimester First Trimester: Desire for , Alcohol, Tobacco Cessation, Illicit/Recreational Drug/Substance Use, Intimate Partner Violence, Barriers to care, Unstable Housing, Communication Barriers, Environmental/Work Hazards, Anticipated Course of Care, Toxoplasmosis Precations, Use of Any medications, Sexual activity, Exercise, Dental Care, Sauna/Hot tub use, Seat Belt use, Childbirth classes/Hospital facilities, Travel, Indications for US and Screening for Aneuploidy Second Trimester Second Trimester: Signs and Symptoms of Labor, Selecting a care provider, Reproductive Life Planning, Care Planning, Depression/Anxiety and Intimate Partner Violence; discussed Tobacco Cessation Diagnostics Diagnostics Details: HIV: Urine Culture: Sequential Screen: NIPT Screen: ROS Const Reports system reviewed and no additional complaints, except as documented Card Reports system reviewed and no additional complaints, except as documented Resp Reports system reviewed and no additional complaints, except as documented GI Reports system reviewed and no additional complaints, except as documented, Reports nausea Reports system reviewed and no additional complaints, except as documented Musc Reports system reviewed and no additional complaints, except as documented all other systems reviewed and negative Exam Const General: cooperative, healthy appearing, comfortable HENMT Head: normal to inspection Nose: external nose normal Face and sinus: normal facial exam Neck Neck: normal visual inspection, full ROM, no lymphadenopathy Thyroid: thyroid normal Chest Chest palpation & inspection: normal inspection of the chest Resp Effort & Inspection: normal respiratory effort GI Inspection: normal to inspection Palpation: soft, other (gravid uterus) Other: infant vertex and appropriate size for gestational age Other: Cervical Exam: [ 4/70/-1 ] Extrem General: pedal edema Results POC Urinalysis 2 Dip (Clinic) Office Urine Glucose Negative Last Edit by Yamila Bay on 04/27/20 08:39 Office Urine Protein Negative Last Edit by Yamila Bay on 04/27/20 08:39 Assessment & Plan Problems 1. Z34.90 Nl anatomy US. genetic, carrier, and ntd screening declined. 2. Family history of congenital heart defect Z82.79 nl per MFM, no additional imaging needed. 3. Chiari malformation type I G93.5 s/p MFM/neuro consult. MFM FU 28wk/cleared. okay for vaginal delivery route but s/p anesthesia consult recommens no regional anesthesia, general anesthesia if cs needed. Plans [facility] delivery 4. Supervision of high-risk O09. PRR GERMAN 05/04/20 boy [place] 5. 36 weeks gestation of Z3A.36 COVID TESTING ORDERED 04/12/2020sc Patient presents [IAL, plan expectant management for , pitocin prn Pain management: Not a candidate for epidural due to Chiari malformation. GBS negative. Management of any complications: None I have reviewed the [facility] and made any clinically relevant updates. Orders Orders: POC Urinalysis 2 Dip (Clinic) Today Coding Level of Care Code OB Routine Diagnoses Z34.90 Family history of congenital heart defect Z82.79 Chiari malformation type I G93.5 Supervision of high-risk O09.90 36 weeks gestation of Z3A.36
[2020-04-29] MEDS: fentaNYL 100 MCG/2 ML Ampul IV (19:41)
[2020-04-29] MEDS: 0.9% Saline Lock 10 ML Syringe IV (19:41)
[2020-04-29] MEDS: Oxytocin 30 units/NS 500 ml 30 UNITS/500 ML IV.SOLN 334 UNITS IV (21:40)
--- NOTE | 2020-04-29 21:57 | OP.PCM_ITS ---
Problem List (1) SROM (spontaneous rupture of membranes) Status: Acute (2) 36 weeks gestation of Status: Acute Comment: COVID TESTING ORDERED 04/12/2020sc (3) Chiari malformation type I Status: Acute Comment: s/p MFM/neuro consult. MFM FU 28wk/cleared. okay for vaginal delivery route but s/p anesthesia consult recommens no regional anesthesia, general anesthesia if cs needed. Plans [facility] delivery (4) Family history of congenital heart defect Status: Acute Comment: nl per MFM, no additional imaging needed. (5) Status: Acute Qualifiers: Comment: Nl anatomy US. genetic, carrier, and ntd screening declined. (6) Supervision of high-risk Status: Acute Qualifiers: Comment: PRR GERMAN 05/04/20 boy [place] Vaginal Delivery Maternal Presentation: Active Labor ial srom Amniotic Membrane Rupture Type: Spontaneous at home Amniotic Fluid Description: Clear Final GERMAN: 05/04/20 Gestational age: 39 Weeks and 2 Days Date of Procedure: 04/29/20 Pre-Operative Diagnosis: ial Post-Operative Diagnosis: same Surgery/ Procedure Performed: Spontaneous Vaginal Delivery Type of Anesthesia: Local with 1% lidocaine Description of Procedure: Patient began pushing and delivered the head in the FABIAN presentation. The head was delivered atraumatically . The anterior and posterior shoulders delivered without complication followed by the rest of the infant and the was placed on the maternal abdomen. Delayed cord clamping was employed for approximately 60 seconds. Cord was clamped and cut and gentle traction was applied to the cord and the placenta delivered spontaneously immediately following it was noted to be intact with three-vessel cord. The perineum and vagina were inspected and to have a second-degree perineal laceration that was repaired in the usual fashion with 3-0 Vicryl repeat after injecting with 1% lidocaine. EBL was 100 cc. Patient and tolerated delivery well. Presentation: FABIAN Placental Delivery Description: Spontaneous Placenta Disposition: [facility] Cord Vessel Description: 3 Vessels Cord Entanglement: None Estimated Blood Loss: 100 Infant A gender: Male Episiotomy Description: None Laceration: Perineal Extension/lac, 2nd degree Medications given after delivery: IV Pitocin Complications: None Multi Select Codes - Urinary/Genital Urinary/Genital CPT Codes: 16757 Vaginal Delivery [facility]
[2020-04-30] MEDS: 0.9% Saline Lock 10 ML Syringe IV (00:30)
--- NOTE | 2020-04-30 01:25 | NURSING ---
this RN gave report to raquel HONG. that rn to assume care of pt at this time.
[2020-04-30 04:00] VITALS: BP 120/78; PULSE 97; RESP 16; TEMP 36.9
--- NOTE | 2020-04-30 07:56 | PCM.PN.OB ---
Patient Problems: Active and Suspected Problems (Last Reviewed 04/27/20 @ 08:34 by Yamila [place]) SROM (spontaneous rupture of membranes) (Acute) 36 weeks gestation of (Acute) COVID TESTING ORDERED 04/12/2020sc Supervision of high-risk (Acute) PRR GERMAN 05/04/20 boy [place] Chiari malformation type I (Acute) s/p MFM/neuro consult. MFM FU 28wk/cleared. okay for vaginal delivery route but s/p anesthesia consult recommens no regional anesthesia, general anesthesia if cs needed. Plans [facility] delivery Family history of congenital heart defect (Acute) nl per MFM, no additional imaging needed. (Acute) Nl anatomy US. genetic, carrier, and ntd screening declined. Subjective: Patient doing well without complaints. Tolerating PO. Ambulating and voiding without difficulty. well. Denies chest pain, shortness of breath, calf pain/swelling, fevers, chills, lightheadedness. - Physical Exam Vitals/I&O's: Vital Signs Temp Pulse Resp BP Pulse Ox 98.4 F 97 16 120/78 98 04/30/20 04:00 04/30/20 04:00 04/30/20 04:00 04/30/20 04:00 04/29/20 23:45 Oxygen Delivery Method Room Air Weight: 149 lb Body Mass Index (BMI) 26.4 Intake and Output for Last 24 Hours 04/28/20 04/29/20 04/30/20 23:59 23:59 23:59 Intake Total 1067 / 1067 333 / 333 Output Total 600 / 600 Balance 1067 / 1067 -267 / -267 General: Alert, Oriented x3 Abdomen: Soft, Non Tender, - - FF below U Laboratory Results 04/29/20 12:50: WBC 9.0, RBC 3.96 L, Hgb 12.1, Hct 35.1 L, MCV 88.6, MCH 30.6, MCHC 34.5, RDW Std Deviation 38.5, RDW Coeff of Har[place] 12.1, Plt Count 269, MPV 10.0, Immature Gran % (Auto) 0.800, Neut % (Auto) 70.1 H, Lymph % (Auto) 19.0, Smyth % (Auto) 8.0, Eos % (Auto) 1.7, Baso % (Auto) 0.4, Absolute Neuts (auto) 6.3, Absolute Lymphs (auto) 1.70, Nucleated RBC % 0 04/29/20 12:50: Blood Type A POSITIVE, Antibody Screen NEGATIVE Current Medications Acetaminophen (Acetaminophen 500 Mg Tablet) 1,000 mg PO Q8H PRN PRN PRN Reason: Pain Score 1-3 Bisacodyl (Bisacodyl 10 Mg Suppository) 10 mg RECTAL UD PRN PRN Reason: If no BM Dibucaine (Dibucaine 30 Gm Tube) 1 applic TOPICAL TID PRN PRN; Protocol PRN Reason: Discomfort Hydrocortisone (Hydrocortisone 2.5% Crm) 1 applic TOPICAL TID PRN PRN; Protocol PRN Reason: Discomfort Methylergonovine Maleate (Methylergonovine 0.2 Mg/Ml Ampul) 0.2 mg IM X1 PRN PRN Reason: Excess bleeding/uterine atony Naproxen (Naproxen 250 Mg Tablet) 500 mg PO Q8H PRN PRN PRN Reason: Pain Score 1-3 Ondansetron HCl (Ondansetron 4 Mg/2 Ml Vial) 4 mg IV Q4H PRN PRN PRN Reason: Nausea Oxycodone HCl (Oxycodone 5 Mg Tablet) 5 - 10 mg PO Q4H PRN PRN PRN Reason: Pain Score 4-10 Senna/Docusate Sodium (Senna/Docusate Sodium 1 Tablet) 1 - 2 tablet PO DAILY PRN PRN PRN Reason: Constipation Simethicone (Simethicone 80 Mg Tablet) 80 mg PO PCHS PRN PRN Reason: Indigestion/Stomach pain Sodium Chloride (0.9% Saline Lock 10 Ml Syringe) 5 - 15 ml IV UD PRN PRN Reason: SALINE FLUSH Last Admin: 04/30/20 00:30 Dose: 10 ml Documented by: Medical Necessity - Tobacco Use Smoking Status: Never smoker Assessment/Plan All Active Problems (Last Reviewed 04/27/20 @ 08:34 by Yamila Bay) SROM (spontaneous rupture of membranes) (Acute) 36 weeks gestation of (Acute) Supervision of high-risk (Acute) Chiari malformation type I (Acute) Family history of congenital heart defect (Acute) (Acute) Breech presentation (Resolved) Uterine size date discrepancy (Resolved) Vaginal bleeding during (Resolved) s/p PPD # 1 1. routine post delivery care 2. breast feeding- support given 3. rh positive 4. rubella immune
[2020-04-30 08:00] VITALS: BP 118/81; PULSE 77; RESP 18; TEMP 36.9
--- NOTE | 2020-04-30 08:23 | NURSING ---
ice pack on, encouraged antiinflammatories
[2020-04-30] MEDS: Naproxen 250 MG Tablet 500 MG PO ×2 (09:38→17:45)
[2020-04-30 12:00] VITALS: BP 140/85; PULSE 94; RESP 18
[2020-04-30 16:05] VITALS: BP 129/77; PULSE 77; RESP 16; TEMP 36.7
[2020-04-30] MEDS: Senna/Docusate Sodium 1 Tablet PO (16:14)
[2020-04-30 19:33] VITALS: BP 125/63; PULSE 89; RESP 16; TEMP 36.9
[2020-05-01 02:00] VITALS: BP 121/76; PULSE 67; RESP 17; TEMP 36.7; O2SAT 98
[2020-05-01 07:55] VITALS: BP 111/74; PULSE 78; RESP 14; TEMP 36.8
--- NOTE | 2020-05-01 08:05 | PCM.PN.OB ---
Patient Problems: Active and Suspected Problems (Last Reviewed 04/27/20 @ 08:34 by Yamila [place]) SROM (spontaneous rupture of membranes) (Acute) 36 weeks gestation of (Acute) COVID TESTING ORDERED 04/12/2020sc Supervision of high-risk (Acute) PRR GERMAN 05/04/20 boy [place] Chiari malformation type I (Acute) s/p MFM/neuro consult. MFM FU 28wk/cleared. okay for vaginal delivery route but s/p anesthesia consult recommens no regional anesthesia, general anesthesia if cs needed. Plans [facility] delivery Family history of congenital heart defect (Acute) nl per MFM, no additional imaging needed. (Acute) Nl anatomy US. genetic, carrier, and ntd screening declined. - Physical Exam Vitals/I&O's: Vital Signs Temp Pulse Resp BP Pulse Ox 98.0 F 67 17 121/76 H 98 05/01/20 02:00 05/01/20 02:00 05/01/20 02:00 05/01/20 02:00 05/01/20 02:00 Oxygen Delivery Method Room Air Weight: 149 lb Body Mass Index (BMI) 26.4 Intake and Output for Last 24 Hours 04/29/20 04/30/20 05/01/20 23:59 23:59 23:59 Intake Total 1067 / 1067 333 / 333 Output Total 600 / 600 Balance 1067 / 1067 -267 / -267 General: Alert, Oriented x3 Abdomen: Soft, Non Tender, - - FF below U Current Medications Acetaminophen (Acetaminophen 500 Mg Tablet) 1,000 mg PO Q8H PRN PRN PRN Reason: Pain Score 1-3 Bisacodyl (Bisacodyl 10 Mg Suppository) 10 mg RECTAL UD PRN PRN Reason: If no BM Dibucaine (Dibucaine 30 Gm Tube) 1 applic TOPICAL TID PRN PRN; Protocol PRN Reason: Discomfort Hydrocortisone (Hydrocortisone 2.5% Crm) 1 applic TOPICAL TID PRN PRN; Protocol PRN Reason: Discomfort Methylergonovine Maleate (Methylergonovine 0.2 Mg/Ml Ampul) 0.2 mg IM X1 PRN PRN Reason: Excess bleeding/uterine atony Naproxen (Naproxen 250 Mg Tablet) 500 mg PO Q8H PRN PRN PRN Reason: Pain Score 1-3 Last Admin: 04/30/20 17:45 Dose: 500 mg Documented by: Ondansetron HCl (Ondansetron 4 Mg/2 Ml Vial) 4 mg IV Q4H PRN PRN PRN Reason: Nausea Oxycodone HCl (Oxycodone 5 Mg Tablet) 5 - 10 mg PO Q4H PRN PRN PRN Reason: Pain Score 4-10 Senna/Docusate Sodium (Senna/Docusate Sodium 1 Tablet) 1 - 2 tablet PO DAILY PRN PRN PRN Reason: Constipation Last Admin: 04/30/20 16:14 Dose: 1 tablet Documented by: Simethicone (Simethicone 80 Mg Tablet) 80 mg PO PCHS PRN PRN Reason: Indigestion/Stomach pain Sodium Chloride (0.9% Saline Lock 10 Ml Syringe) 5 - 15 ml IV UD PRN PRN Reason: SALINE FLUSH Last Admin: 04/30/20 00:30 Dose: 10 ml Documented by: Medical Necessity - Tobacco Use Smoking Status: Never smoker Assessment/Plan All Active Problems (Last Reviewed 04/27/20 @ 08:34 by Yamila Bay) SROM (spontaneous rupture of membranes) (Acute) 36 weeks gestation of (Acute) Supervision of high-risk (Acute) Chiari malformation type I (Acute) Family history of congenital heart defect (Acute) (Acute) Breech presentation (Resolved) Uterine size date discrepancy (Resolved) Vaginal bleeding during (Resolved) s/p PPD # 2 1. routine post delivery care 2. breast feeding- support given 3. rh positive 4. rubella immune 5. home today
--- NOTE | 2020-05-01 08:09 | DCINST_ITS ---
Additional Instructions: If you experience any of the following, contact your healthcare provider. * Bleeding that soaks a pad every hour for 2 hours * Fever 100.4 or higher * Unrelieved incision or abdominal pain * Swelling, redness, discharge or bleeding from your incision or episiotomy site * Your incision begins to separate * Problems urinating (including inability to urinate or burning while urinating). * Visual changes * Severe headache * Flu-like symptoms * Pain or redness in one of both of your breasts * Pain, warmth, tenderness or swelling in your legs, especially the calf area * Frequent nausea and vomiting * Symptoms of depression or anxiety If you experience any of the following, call 911 or go to the nearest Emergency Room. * Chest pain * Problems breathing * Seizure activity * Partial or complete paralysis of a body part, slurred speech, weakness or drooping of the face, or a sudden inability to walk or hold your balance Allergies/Adverse Reactions: Allergies banana Allergy (Mild, Verified 04/27/20 08:34) RASH Medications to take at Discharge vitamin#30 30 mg iron-10 mg iron-folic acid 1 mg-omg3 capsule 1 cap PO DAILY cap 04/07/19 Aspirin E.C. [Ecotrin] 81 mg PO DAILY@0800 03/14/20 Calcium Carbonate/Vitamin D3 [Calcium 250-Vit D3 125 Tablet] 1 ea PO DAILY 03/14/20 Primary Care Physician: Warren Melendez MD [Primary Care Provider] - Test Results: Test results from this visit will be discussed in further detail at your follow- up appointment, if applicable.
--- NOTE | 2020-05-01 08:09 | PCM.DCVAG ---
Additional Instructions: If you experience any of the following, contact your healthcare provider. Bleeding that soaks a pad every hour for 2 hours Fever 100.4 or higher Unrelieved incision or abdominal pain Swelling, redness, discharge or bleeding from your incision or episiotomy site Your incision begins to separate Problems urinating (including inability to urinate or burning while urinating). Visual changes Severe headache Flu-like symptoms Pain or redness in one of both of your breasts Pain, warmth, tenderness or swelling in your legs, especially the calf area Frequent nausea and vomiting Symptoms of depression or anxiety If you experience any of the following, call 911 or go to the nearest Emergency Room. Chest pain Problems breathing Seizure activity Partial or complete paralysis of a body part, slurred speech, weakness or drooping of the face, or a sudden inability to walk or hold your balance Allergies/Adverse Reactions: Allergies banana Allergy (Mild, Verified 04/27/20 08:34) RASH Medications to take at Discharge vitamin#30 30 mg iron-10 mg iron-folic acid 1 mg-omg3 capsule 1 cap PO DAILY cap 04/07/19 Aspirin E.C. [Ecotrin] 81 mg PO DAILY@0800 03/14/20 Calcium Carbonate/Vitamin D3 [Calcium 250-Vit D3 125 Tablet] 1 ea PO DAILY 03/14/20 Primary Care Physician: Warren Melendez MD [Primary Care Provider] - Test Results: Test results from this visit will be discussed in further detail at your follow-up appointment, if applicable.
[2020-05-01] MEDS: Naproxen 250 MG Tablet 500 MG PO (08:27)
== END 2020-05-01 11:45 | disposition home or self-care (01) | DRG 805 ==
LOC: WP 21:41 → WPOUT 04-30 09:41
PROVIDERS: Admitting Provider Obstetrics & Gynecology; PCP Family Medicine; Referring Provider Obstetrics & Gynecology; Visit Provider Obstetrics & Gynecology
DX: O99.354 Diseases of the nervous system complicating childbirth (principal); G93.5 Compression of brain; Z37.0 Single live birth; Z3A.39 39 weeks gestation of pregnancy; O70.1 Second degree perineal laceration during delivery
CPT/HCPCS: 59025; 59050; 85025; 86850; 86900; 86901; 99218; A4216; G0378

== ENCOUNTER → 2020-05-08 20:15 | Outpatient (CLI) | payer OTHER, SELFPAY ==
[2020-05-02 12:15] VITALS: BMI 26.4
== END ==
PROVIDERS: PCP Family Medicine; Referring Provider Obstetrics & Gynecology; Visit Provider Obstetrics & Gynecology
DX: R63.3 Feeding difficulties (principal)
CPT/HCPCS: 96158

== ENCOUNTER → 2020-08-29 13:29 | Outpatient (CLI) | payer OTHER, SELFPAY ==
[2020-06-13 11:42] VITALS: BMI 23.3
== END ==
PROVIDERS: PCP Family Medicine; Visit Provider Family Medicine
DX: Z20.822 Contact with and (suspected) exposure to COVID-19 (principal)
CPT/HCPCS: 87635; U0005; U0003

== ENCOUNTER → 2021-02-11 18:09 | Outpatient (CLI) | payer OTHER, SELFPAY ==
[2020-06-13 11:42] VITALS: BMI 23.3
[2021-02-11 19:18] LABS: Probe Check PASS; Specimen Processing Control PASS
== END ==
PROVIDERS: PCP Family Medicine; Referring Provider Family Medicine; Visit Provider Family Medicine
DX: U07.1 COVID-19 (principal)
CPT/HCPCS: 87635; U0005; U0003

== ENCOUNTER → 2021-06-17 10:29 | Outpatient (CLI) | payer OTHER, SELFPAY ==
[2021-06-17 11:04] LABS: Absolute Lymphocyte Count 1.76 X10^3/uL (0.83-4.51); Absolute Neutrophil Count 1.5 X10^3/uL (2.0-7.7); Basophil# 0.06 X10^3/uL; Basophil% 1.5 % (0-1); Eosinophil# 0.22 X10^3/uL; Eosinophils% 5.4 % (0-5); Hematocrit 36.8 % (37-47); Hemoglobin 12.8 g/dL (12.0-15.0); Lymphocyte # 1.76 X10^3/ul (0.83-4.51); Lymphocyte % 43.5 % (19-41); Mean Corp Hgb Conc 34.8 g/dL (32-36); Mean Corpuscular Hgb 29.6 pg (27.0-32.0); Mean Corpuscular Volume 85.2 fL (81-99); Monocyte# 0.54 X10^3/uL; Monocyte% 13.3 % (0-10); NRBC Flagged by Analyzer 0 % (0-5); Neutrophil # 1.46 X10^3/uL (2.7-7.7); Neutrophil % 36.1 % (47-70); Platelet Count 284 K/mm3 (150-450); RBC Distribution Width CV 11.7 % (11.6-14.6); RBC Distribution Width SD 35.9 fl (35.1-43.9); Red Blood Count 4.32 M/mm3 (4.2-5.4); White Blood Count 4.1 K/mm3 (4.4-11.0)
[2021-06-17 11:39] LABS: Anion Gap 6 (5-15); BUN 11 mg/dL (7-18); BUN/Creat Ratio 17.8 RATIO (10-20); Calcium,Total 8.6 mg/dL (8.5-10.1); Chloride 105 mmol/L (98-107); Cholesterol 150 mg/dL (200); Creatinine, Serum 0.62 mg/dL (0.55-1.02); EST Glomerular Filtration Rate 122 mL/min (>60); Est Glom Filt Rate - Afr Amer 148 mL/min (>60); Glucose 92 mg/dL (74-106); High Density Lipoprotein 41 mg/dL; Potassium 4.2 mmol/L (3.5-5.1); Sodium Level 140 mmol/L (136-145); Triglycerides 66 mg/dL; Very Low Density Lipoprotein 13 mg/dL (5-40)
[2021-06-17 11:48] LABS: Vitamin D,25 Hydroxy 23.2 ng/mL
[2021-06-26 09:43] LABS: HPV APTIMA, High Risk Negative (Negative)
[2021-06-26 09:44] LABS: HPV Reflexed? YES, CHARGE PATIENT
== END ==
PROVIDERS: Obstetrics & Gynecology; PCP Family Medicine; Referring Provider Family Medicine; Visit Provider Family Medicine
DX: Z00.00 Encounter for general adult medical examination without abnormal findings (principal); R53.83 Other fatigue; Z12.4 Encounter for screening for malignant neoplasm of cervix
CPT/HCPCS: 36415; 80048; 80061; 82306; 84443; 85025; 87624; 88175; G0145

== ENCOUNTER 2021-08-09 10:44 | Outpatient (CLI) | payer OTHER, SELFPAY ==
[2021-08-09 15:44] LABS: Free T3 3.1 pg/mL (2.18-3.98); Thyroid Stim Hormone (TSH) 3.86 uIU/mL (0.358-3.74)
== END 2021-08-09 23:59 | disposition short-term general hospital (02) ==
LOC: MFPLAB 10:47
PROVIDERS: PCP Family Medicine; Referring Provider Family Medicine; Visit Provider Family Medicine
DX: E03.9 Hypothyroidism, unspecified (principal)
CPT/HCPCS: 36415; 84443; 84481

== ENCOUNTER 2021-09-11 21:21 | Outpatient (CLI) | payer OTHER, SELFPAY | END 2021-09-11 23:59 | disposition home or self-care (01) | PROVIDERS: PCP Family Medicine; Visit Provider Internal Medicine Pulmonary Disease | DX: G47.10 Hypersomnia, unspecified (principal) | CPT/HCPCS: 95810 ==

== ENCOUNTER 2021-10-07 15:09 | Outpatient (CLI) | payer OTHER, SELFPAY ==
[2021-10-07 16:17] LABS: T4 Free Direct 0.89 ng/dL (0.76-1.46); Thyroid Stim Hormone (TSH) 2.36 uIU/mL (0.358-3.74)
== END 2021-10-07 23:59 | disposition home or self-care (01) ==
LOC: LAB 15:10
PROVIDERS: PCP Family Medicine; Referring Provider Obstetrics & Gynecology; Visit Provider Obstetrics & Gynecology
DX: R79.89 Other specified abnormal findings of blood chemistry (principal)
CPT/HCPCS: 36415; 84439; 84443

== ENCOUNTER 2021-11-07 09:00 | Outpatient (RCR) | payer OTHER, SELFPAY ==
--- NOTE | 2021-07-19 09:09 | HP.PTEVAL ---
Patient's Visit Information CEYC GALLEGOS is a 26 year old F referred to Physical Therapy by Dr. Warren Melendez MD with a diagnosis of KOLB, Chronic. Date of Evaluation: 07/18/21 Physical Therapist: Dat Ledesma DPT - Visit Plan Frequency: 1-2x /Week Duration: 6 Weeks Plan: Start with inhibition exercises, DN to neck and thoracic spine. Add in postural strengthening. - Subjective Pt. is here today for her initial evaluation with diagnosis of headache. Pt. is known to this PT from previous incidence. Pt. has had chronic KOLB with history of Chiari malformation. Pt. reports having KOLB mostly tension like, at posterior head, sub occipital region which does go down into her B UT and thoracic spine. She did report that her KOLB went away during , but is slowly coming back over the last year. She reports pain on average at 3/10, worst at 7/10. Pt. has started doing yoga which has helped a bit, 2-3x per week. Pt. denies UE weakness, no arm pain, no N/T in either UE. Pt. works at a [employer] in the [employer]. Pt. reports having a constant KOLB that fluctuates in intensity. She is hopeful to reduce her symptoms in order to complete her work day and recreational activities without limitations. - Pain KOLB Pain Intensity (Out of 10): 3 Pain Intensity Range: 1, 7 - Objective POSTURE: Pt. has decent posture in sitting and stance. Slight increased FH posture, but able to correct and maintain. PALPATION: Pt. tender at B sub occipitials, B UT, B cervical and thoracic erector spinae and B levator scapulae. NEURO: Normal sensation in BUEs, normal DTR of BUEs. No N/T noted. ROM: Pt. has good ROM throughout cervical and thoracic spine, but does report pulling with cervical rotation bilaterally and with flexion. MMT: Pt. has full strength throughout BUEs and 5/5 cervical isometrics. - Special Tests C/S Radiculapathy - Left Spurlings: Negative C/S Radiculapathy - Right Spurlings: Negative C/S Radiculapathy - Left Cervical distraction: Negative C/S Radiculapathy - Right Cervical distraction: Negative C/S Radiculapathy - Left Relief test: Negative C/S Radiculapathy - Right Relief test: Negative C/S Radiculapathy - Valsalva: Negative Sharp Florentin: Negative Vertebral Artery Test: Negative Alar Ligament Test: Negative Cervical Sitting: Protrusion - Mechanical Response: No effect Cervical Sitting: Protrusion - Symptoms During Testing: No effect Cervical Sitting: Protrusion - Symptoms After Testing: No effect Cervical Sitting: Retraction - Mechanical Response: No effect Cervical Sitting: Retraction - Symptoms During Testing: Increases Cervical Sitting: Retraction - Symptoms After Testing: No worse Cervical Sitting: Retraction-Extension - Mechanical Response: No effect Cerv Sitting: Retraction-Extension - Symptoms During Testing: Increases Cerv Sitting: Retraction-Extension - Symptoms After Testing: No worse Cervical Sitting: Sidebend Right - Mechanical Response: No effect Cervical Sitting: Sidebend Right - Symptoms During Testing: No effect Cervical Sitting: Sidebend Right - Symptoms After Testing: No effect Cervical Sitting: Sidebend Left - Mechanical Response: No effect Cervical Sitting: Sidebend Left - Symptoms During Testing: No effect Cervical Sitting: Sidebend Left - Symptoms After Testing: No effect Cervical Sitting: Rotation Right - Mechanical Response: No effect Cervical Sitting: Rotation Right - Symptoms During Testing: No effect Cervical Sitting: Rotation Right - Symptoms After Testing: No effect Cervical Sitting: Rotation Left - Mechanical Response: No effect Cervical Sitting: Rotation Left - Symptoms During Testing: No effect Cervical Sitting: Rotation Left - Symptoms After Testing: No effect Cervical Sitting: Flexion - Mechanical Response: No effect Cervical Sitting: Flexion - Symptoms During Testing: No effect Cervical Sitting: Flexion - Symptoms After Testing: No effect - Balance/Special Test Scores Oswestry Neck Score: 16 - Goals Goal 1:: LTG: Pt. to be I with HEP. Goal Time Frame: 4-6 Weeks Goal 2:: STG: Pt. have decreased frequency of KOLB to x4 per week. Goal Time Frame: 2-4 Weeks Goal 3:: STG: pt. to have decreased intensity of HAs to 2-3/10 art worst. Goal Time Frame: 2-4 Weeks Goal 4:: LTG: Pt. to work without increase in symptoms. Goal Time Frame: 4-6 Weeks - Rehabilitation Potential Physical Therapy Diagnosis: Pt. has signs and symptoms of chronic HAs. Pt. has slight decreased mobility in her neck with associated tightness, she is also tender in her sub occipitals, B UT and middle traps. She would benefit from PT to work on proper lifting techniques, inhibitions techniques and postural strength. Rehabilitation Potential: Excellent - Anticipated Interventions Patient/Client Instruction: Educate patient on: Condition, Plan of Care, Risk Factors, Benefits of Fitness Program For the Purpose of:: To improve health and function, To foster healthy habits, To improve decision making, To facilitate caregiver knowledge, To improve self management Therapeutic Exercise to Include: Strength training, Power training, Postural training, Flexibilty training, Passive ROM, Active ROM, Shivani Exercises, Scapular Strength/Stabilization For the Purpose of:: To decrease pain, To increase ROM, To improve nutrient delivery to tissue, To improve muscle performance and motor function, To improve ability to perform ADL's, To improve health of tissue, To decrease soft tissue restriction, To increase flexibility/ROM Thank you for the opportunity to evaluate your patient. For Medicare and Medicare HMO plans, please review the plan of care and approve it. It will need to be FAXED BACK to us at [phone] for Medicare purposes. For Medicare only, by signing this I certify the plan of care. Please let me know if there are questions or concerns regarding this plan of care. Physician Signature: Date:
== END 2021-11-07 19:00 | disposition home or self-care (01) ==
LOC: PT 09:00
PROVIDERS: PCP Family Medicine; Referring Provider Family Medicine; Visit Provider Family Medicine
DX: R51.9 Headache, unspecified (principal)
CPT/HCPCS: 97110; 97161

== ENCOUNTER → 2021-11-19 | Outpatient (CLI) | payer OTHER, SELFPAY ==
[2021-11-19 16:53] LABS: hCG Titer Quant., Serum 27536 mIU/mL (1-3)
== END | disposition home or self-care (01) ==
LOC: LAB 15:04
PROVIDERS: PCP Family Medicine; Referring Provider Nurse Practitioner Women's Health; Visit Provider Nurse Practitioner Women's Health
DX: N91.2 Amenorrhea, unspecified (principal)
CPT/HCPCS: 36415; 84702

== ENCOUNTER → 2021-12-05 | Outpatient (CLI) | payer OTHER, SELFPAY ==
[2021-12-05 15:43] LABS: Absolute Lymphocyte Count 1.68 X10^3/uL (0.83-4.51); Absolute Neutrophil Count 5.9 X10^3/uL (2.0-7.7); Basophil# 0.04 X10^3/uL; Basophil% 0.5 % (0-1); Eosinophil# 0.08 X10^3/uL; Hematocrit 36.5 % (37-47); Hemoglobin 12.5 g/dL (12.0-15.0); Lymphocyte # 1.68 X10^3/ul (0.83-4.51); Mean Corp Hgb Conc 34.2 g/dL (32-36); Mean Corpuscular Hgb 29.5 pg (27.0-32.0); Mean Corpuscular Volume 86.1 fL (81-99); Mean Platelet Vol. 9.3 fl (6.2-12.0); Monocyte# 0.63 X10^3/uL; Monocyte% 7.5 % (0-10); NRBC Flagged by Analyzer 0 % (0-5); Neutrophil # 5.94 X10^3/uL (2.7-7.7); Neutrophil % 70.5 % (47-70); Platelet Count 288 K/mm3 (150-450); RBC Distribution Width CV 11.9 % (11.6-14.6); RBC Distribution Width SD 37.7 fl (35.1-43.9); Red Blood Count 4.24 M/mm3 (4.2-5.4); White Blood Count 8.4 K/mm3 (4.4-11.0)
[2021-12-05 16:36] LABS: T4 Free Direct 1.11 ng/dL (0.76-1.46); Thyroid Stim Hormone (TSH) 1.46 uIU/mL (0.358-3.74)
[2021-12-05 16:53] LABS: Amphetamine Urine VISTA NEGATIVE (<1000 ng/mL); Barbiturate Urine VISTA NEGATIVE (< 200 ng/mL); Benzodiazepine Urine VISTA NEGATIVE (< 200 ng/mL); Cocaine Urine VISTA NEGATIVE (< 300 ng/mL); Ecstacy Urine VISTA NEGATIVE (< 500 ng/mL); Methadone Urine VISTA NEGATIVE (< 300 ng/mL); PCP Urine VISTA NEGATIVE (< 25 ng/mL); THC Urine VISTA NEGATIVE (< 50 ng/mL); Vista UDS pH Range 5
[2021-12-05 19:54] LABS: HIV - WCH Non-Reactive (Nonreactive); Hepatitis B Surface Antigen Non-Reactive (Nonreactive); Hepatitis C Antibody Non-Reactive (Nonreactive); Rubella IgG Reactive (Nonreactive)
[2021-12-06 14:47] LABS: Syphilis Antibodies Non-reactive
[2021-12-10 05:06] LABS: Chlamydia By Nucleic Acid AMP Negative (Negative)
[2021-12-10 11:20] LABS: Gonococcus By Nucleic Acid AMP Negative (Negative)
== END | disposition home or self-care (01) ==
LOC: LAB 14:50
PROVIDERS: PCP Family Medicine; Visit Provider Obstetrics & Gynecology
DX: Z34.90 Encounter for supervision of normal pregnancy, unspecified, unspecified trimester (principal)
CPT/HCPCS: 36415; 80307; 84439; 84443; 85025; 86703; 86762; 86780; 86803; 87077; 87086; 87088; 87186; 87340; 87491; 87591

== ENCOUNTER → 2021-12-06 | Outpatient (CLI) | payer OTHER, SELFPAY | END | disposition home or self-care (01) | LOC: LAB 13:44 | PROVIDERS: PCP Family Medicine; Referring Provider Obstetrics & Gynecology; Visit Provider Obstetrics & Gynecology | DX: N91.2 Amenorrhea, unspecified (principal); D64.9 Anemia, unspecified | CPT/HCPCS: 86850; 86900; 86901 ==

== ENCOUNTER → 2022-01-08 | Outpatient (CLI) | payer OTHER, SELFPAY | END | disposition home or self-care (01) | LOC: LABSPEC 16:54 | PROVIDERS: PCP Family Medicine; Visit Provider Obstetrics & Gynecology | DX: O09.90 Supervision of high risk pregnancy, unspecified, unspecified trimester (principal) | CPT/HCPCS: 87070; 87077; 87186; 87205 ==

== ENCOUNTER → 2022-04-21 | Outpatient (CLI) | payer OTHER, SELFPAY ==
[2022-04-21 10:34] LABS: Absolute Lymphocyte Count 1.35 X10^3/uL (0.83-4.51); Absolute Neutrophil Count 5.8 X10^3/uL (2.0-7.7); Basophil# 0.03 X10^3/uL; Basophil% 0.4 % (0-1); Eosinophil# 0.27 X10^3/uL; Eosinophils% 3.3 % (0-5); Hematocrit 33.3 % (37-47); Hemoglobin 11.5 g/dL (12.0-15.0); Lymphocyte # 1.35 X10^3/ul (0.83-4.51); Lymphocyte % 16.6 % (19-41); Mean Corp Hgb Conc 34.5 g/dL (32-36); Mean Corpuscular Hgb 31.3 pg (27.0-32.0); Mean Corpuscular Volume 90.7 fL (81-99); Monocyte# 0.56 X10^3/uL; Monocyte% 6.9 % (0-10); NRBC Flagged by Analyzer 0 % (0-5); Neutrophil % 71.6 % (47-70); Platelet Count 257 K/mm3 (150-450); RBC Distribution Width CV 11.8 % (11.6-14.6); RBC Distribution Width SD 38.8 fl (35.1-43.9); Red Blood Count 3.67 M/mm3 (4.2-5.4); White Blood Count 8.1 K/mm3 (4.4-11.0)
[2022-04-21 10:49] LABS: Glucose Challenge Gest 1H 50g 120 mg/dL (70-140)
[2022-04-21 12:50] LABS: Thyroid Stim Hormone (TSH) 1.43 uIU/mL (0.358-3.74)
== END | disposition home or self-care (01) ==
LOC: PAVLAB 10:06
PROVIDERS: PCP Family Medicine; Referring Provider Obstetrics & Gynecology; Visit Provider Obstetrics & Gynecology
DX: O09.90 Supervision of high risk pregnancy, unspecified, unspecified trimester (principal); Z13.29 Encounter for screening for other suspected endocrine disorder
CPT/HCPCS: 36415; 82950; 84443; 85025

== ENCOUNTER → 2022-05-23 | Outpatient (CLI) | payer OTHER, SELFPAY ==
--- NOTE | 2022-05-23 07:53 | US_ITS ---
EXAM: US , LIMITED CLINICAL INDICATION: Growth TECHNIQUE: Real-time limited ultrasound of the maternal uterus with image documentation. This report was created using [employer] report generation technology. COMPARISON: None. FINDINGS: GESTATIONAL AGE: Gestational age is 32 weeks 5 days. GERMAN: GERMAN is 07/13/2022. EFW: Estimated weight is 2015 g. BPD: Biparietal diameter 7.9 cm age 31 weeks 4 days, 15th percentile. HC: Head circumference is 29.6 cm HC 32 weeks 5 days, 16th percentile. AC: Abdominal circumference 28.9 cm image 32 weeks 6 days, 56 percentile. FL: Femur length is 6.2 cm image 32 weeks 2 days, 27th percentile. POSITION: There is intrauterine fetus. The fetus is in the cephalic position. HEART RATE: heart rate is 137 bpm. PLACENTA: The placenta is anterior. The cord has a marginal insertion 2.3 cm from the edge of the placenta. AMNIOTIC FLUID: KANNAN is 17.6 cm. CERVIX: Cervix measures 3.7 cm. US/OB Limited With Biometrics IMPRESSION: Intrauterine gestation with an average ultrasound age of 32 weeks 3 days and an ultrasound estimated due date of 07/15/2022. heart rate is 137 bpm. Electronically Signed: Buddy Partida MD at 20:17 EST ,
== END | disposition home or self-care (01) ==
LOC: OPUS 07:52
PROVIDERS: PCP Family Medicine; Visit Provider Nurse Practitioner Women's Health
DX: O09.90 Supervision of high risk pregnancy, unspecified, unspecified trimester (principal)
CPT/HCPCS: 76816

== ENCOUNTER → 2022-06-20 | Outpatient (CLI) | payer OTHER, SELFPAY ==
--- NOTE | 2022-06-20 08:01 | US_ITS ---
STUDY: SECOND AND THIRD TRIMESTER OBSTETRICAL ULTRASOUND REASON FOR EXAM: Female, 27 years old Growth LMP: 10/06/2021. TECHNIQUE: Transabdominal TECHNICAL QUALITY: Adequate. PRIOR ULTRASOUND: Comparison is made with prior study dated 05/23/2022. FINDINGS: There is a single intrauterine fetus. The fetus is in a cephalic presentation. There is demonstrated cardiac activity with a heart rate of 144 bpm. There is a normal amniotic fluid volume. The largest amniotic fluid pocket measures 4.9 cm. The amniotic fluid index (KANNAN) is 10.9 cm. The placenta is anterior in location and is not low lying. There are Grade 2 placental changes. The adnexal regions are not visualized. BIOMETRY: BPD: 8.32 cm: 33 weeks, 3 days HC: 30.66 cm: 34 weeks, 1 days AC: 33.44 cm: 37 weeks, 2 days FL: 7.09 cm: 36 weeks, 2 days CI: 80% FL/BPD: 85% FL/HC: FL/AC: 21% HC/AC: 0.92 age by current US: 34 weeks, 3 days. GERMAN by current US: 07/29/2022. Estimated weight: 2957 grams, +/- 444 grams, 49 %. age by prior US: 36 weeks, 3 days. GERMAN by prior US: 07/15/2022. Age by LMP: 36 weeks, 5 days. GERMAN by LMP: 07/13/2022. US/OB Limited With Biometrics IMPRESSION: Single live uterine gestation with a mean gestational age of 36 weeks and 3 days. The measurements obtained today fall within the normal expected range. Electronically Signed: Lenard Nunes MD at 13:16 EST ,
== END | disposition home or self-care (01) ==
LOC: OPUS 07:59
PROVIDERS: PCP Family Medicine; Referring Provider Nurse Practitioner Women's Health; Visit Provider Nurse Practitioner Women's Health
DX: O09.90 Supervision of high risk pregnancy, unspecified, unspecified trimester (principal); Z3A.36 36 weeks gestation of pregnancy
CPT/HCPCS: 76816

== ENCOUNTER 2022-07-09 19:28 | Inpatient (IN) | payer OTHER, SELFPAY ==
[2022-07-09 18:48] VITALS: TEMP 36.3
[2022-07-09 18:53] VITALS: BP 122/77; PULSE 100; O2SAT 98
[2022-07-09 18:59] VITALS: BMI 28.5
[2022-07-09 19:27] LABS: ROM Internal Control Test YES-OK TO RESULT pt. (Internal QC)
[2022-07-09 19:29] LABS: ROM Patient Test POSITIVE (Negative)
[2022-07-09] MEDS: Lactated Ringers 1,000 ML 50 ML IV (20:20)
[2022-07-09 20:26] LABS: Absolute Lymphocyte Count 1.76 X10^3/uL (0.83-4.51); Absolute Neutrophil Count 8.3 X10^3/uL (2.0-7.7); Basophil# 0.04 X10^3/uL; Basophil% 0.4 % (0-1); Eosinophils% 1.8 % (0-5); Hematocrit 30.3 % (37-47); Hemoglobin 10.4 g/dL (12.0-15.0); Lymphocyte # 1.76 X10^3/ul (0.83-4.51); Lymphocyte % 15.7 % (19-41); Mean Corp Hgb Conc 34.3 g/dL (32-36); Mean Corpuscular Hgb 28.6 pg (27.0-32.0); Mean Corpuscular Volume 83.2 fL (81-99); Mean Platelet Vol. 9.2 fl (6.2-12.0); Monocyte# 0.88 X10^3/uL; Monocyte% 7.8 % (0-10); NRBC Flagged by Analyzer 0 % (0-5); Neutrophil # 8.27 X10^3/uL (2.7-7.7); Neutrophil % 73.5 % (47-70); Platelet Count 252 K/mm3 (150-450); RBC Distribution Width CV 13.2 % (11.6-14.6); RBC Distribution Width SD 39.6 fl (35.1-43.9); Red Blood Count 3.64 M/mm3 (4.2-5.4); White Blood Count 11.2 K/mm3 (4.4-11.0)
--- NOTE | 2022-07-09 20:27 | HP.PCM.OB_ITS ---
HPI - General General Date of Admission: 07/09/22 HPI Narrative CECY GALLEGOS, is a 27 F who presents for R/o ROM at 39+3. course complicated by: marginal cord insertion, GBS positive, thyroid dx, chiari malformation. 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 MTHFR mutation Syrinx Thyroid disorder Home Medications vitamin#30 30 mg iron-10 mg iron-folic acid 1 mg-omg3 capsule 1 cap PO DAILY 04/07/19 [History Last Taken Unknown] aspirin 81 mg tablet,delayed release (Adult Aspirin Regimen) 81 mg PO DAILY MTHFR 11/06/21 [History Last Taken 07/09/22] levothyroxine 25 mcg tablet (Synthroid) 25 mcg PO DAILY hypothyroidism 07/09/22 [History Last Taken 07/08/22] Allergy/AdvReac Type Severity Reaction Status Date / Time banana Allergy Mild RASH Verified 07/09/22 19:00 Family History Father , BLOOD CLOT BLOOD CLOT Surgical History H/O wisdom tooth extraction Social History Smoking Status: Never smoker alcohol intake: never details: social substance use type: does not use caffeine: Yes what type of physical activity do you participate in: walking seatbelt use: always do you feel safe at home: Yes additional social history: [place]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 Date Name GA/Weeks Outcome Route Bth Weight Gen Labor Lgth Anesthesia Del Locatn Provider FOB Unknown 03/2019 SAB spontaneous 04/29/20 [place] 39 live - full term Male [employer] Marcanthony Delivery Date: 04/29/20 Last Updated by: Su MULLINS Visit Details Expected Delivery Route/Plan Labor Preferences- CB/BF classes: no labor support person: Tayo labor intervention preferences: [] pain management options preferred: limited intervention. No meds cut cord/dad catch: no : yes PP control planned: condoms discussed possible routes of delivery and associated risks: [] special requests: [] Plans Covid status: discussed Flu vaccine: declines Tdap vaccine: declines Rhogam:na LARC form signed: yes movement and labor precautions reviewed. Problem list reviewed and updated with the most current plan of care details and appropriate orders placed. Relevant counseling for the gestational age provided. Continue routine care and follow up unless otherwise noted in visit notes/problem list details OB Flowsheet Initial Weight: Not Recorded Date -?-?-?-?-?-?-?-?-?-?-?-?- EGA Weight BP Urine Prot -?-?-?-?-?-?-?-?-?-?-?-?- Glucose FHR FuHt Pres Dilation -?-?-?-?-?-?-?-?-?-?-?-?- Effaced St Visit Note 12/05/21 -?-?-?-?-?-?-?-?-?-?-?-?- 8w 4d 121 lb 112/68 -?-?-?-?-?-?-?-?-?-?-?-?- 170 -?-?-?-?-?-?-?-?-?-?-?-?- SM- CRL 1.78cm c ons with lmp 01/01/22 -?-?-?-?-?-?-?-?-?-?-?-?- 12w 3d 120 lb 4 oz 120/82 Nega tive -?-?-?-?-?-?-?-?-?-?-?-?- Negative 168 -?-?-?-?-?-?-?-?-?-?-?-?- JV- CRL consiste nt with establised GA. had some spotting over the weekend but thinks over did it with yard work. no complaints. today. 01/08/22 -?-?-?-?-?-?-?-?-?-?-?-?- 13w 3d 121 lb 2 oz 110/60 Nega tive -?-?-?-?-?-?-?-?-?-?-?-?- Negative 158 -?-?-?-?-?-?-?-?-?-?-?-?- JV- CRL measurin g 13 weeks 6 days, possible tiny POLA present measuring 20mm, also on vaginal exam there is mucous and some brown blood, possibly a posterior cervical ectropion. pelvic rest encouraged. pt reassred. 01/28/22 -?-?-?-?-?-?-?-?-?-?-?-?- 16w 2d 124 lb 6 oz 118/60 Nega tive -?-?-?-?-?-?-?-?-?-?-?-?- Negative 158 -?-?-?-?-?-?-?-?-?-?-?-?- -Had dark brow n discharge from last visit until about 1 week ago and no since. Denies other concerns. Anatomy US is 02/11 at [facility] with consult. 02/24/22 -?-?-?-?-?-?-?-?-?-?-?-?- 20w 1d 131 lb 6 oz 110/69 Nega tive -?-?-?-?-?-?-?-?-?-?-?-?- Negative 150 -?-?-?-?-?-?-?-?-?-?-?-?- SM_ no vb lof go od fm no regualr ctx 03/25/22 -?-?-?-?-?-?-?-?-?-?-?-?- 24w 2d 141 lb 111/69 Negative -?-?-?-?-?-?-?-?-?-?-?-?- Negative 150 24 -?-?-?-?-?-?-?-?-?-?-?-?- SM- no vb lof go od fm but in consistent no reuglar ctx 04/21/22 -?-?-?-?-?-?-?-?-?-?-?-?- 28w 1d 147 lb 6 oz 124/78 Nega tive -?-?-?-?-?-?-?-?-?-?-?-?- Negative 154 28 -?-?-?-?-?-?-?-?-?-?-?-?- MH-No Vb, LOF. G ood FM. Larc, 28 wk labs. Declines tdap, flu 05/09/22 -?-?-?-?-?-?-?-?-?-?-?-?- 30w 5d 152 lb 118/60 Negative -?-?-?-?-?-?-?-?-?-?-?-?- Negative 140 31 -?-?-?-?-?-?-?-?--?-?-?-?- SM- no vb lof go od fm no fergular ctx 05/23/22 -?-?-?-?-?-?-?-?-?-?-?-?- 32w 5d 156 lb 4 oz 120/69 Nega tive -?-?-?-?-?-?-?-?-?-?-?-?- Negative 143 32 -?-?-?-?-?-?-?-?-?-?-?-?- JV- growth scan done today and results are pending. has marginal cord insetion. will call with results. 06/02/22 -?-?-?-?-?-?-?-?-?-?-?-?- 34w 1d 156 lb 4 oz 132/76 Nega tive -?-?-?-?-?-?-?-?-?-?-?-?- Negative 140 33 -?-?-?-?-?-?-?-?-?-?-?-?- SM- no vb lof go od fm n roegualr ctx 06/16/22 -?-?-?-?-?-?-?-?-?-?-?-?- 36w 1d 160 lb 124/62 Negative -?-?-?-?-?-?-?-?-?-?-?-?- Negative 140 36 Cephalic 1 -?-?-?-?-?-?-?-?-?-?-?-?- 10 SM- no v b lof good fm no reuglar ctx gbs done 06/27/22 -?-?-?-?-?-?-?-?-?-?-?-?- 37w 5d 161 lb 4 oz 126/77 Nega tive -?-?-?-?-?-?-?-?-?-?-?-?- Negative 156 36 Cephalic 0 -?-?-?-?-?-?-?-?-?-?-?-?- JV- unable to ge t finger tunneled to head today. growth scan shows 49th%. pt concerned because the GA based on US puts her due date at 07/29 making it looks as if baby is 2 weeks behind. pt reassured. 07/03/22 -?-?-?-?-?-?-?-?-?-?-?-?- 38w 4d 161 lb 8 oz 118/76 Nega tive -?-?-?-?-?-?-?-?-?-?-?-?- Negative 145 38 Cephalic 1 -?-?-?-?-?-?-?-?-?-?-?-?- 70 -3 LC-doing w ell, no concerns.no lob,vb,ctx. good fm. NST FHR Rate Baby A Baseline: 140 Variability:: Moderate Accelerations:: 15 x 15 Decelerations:: None NST Reactive:: Yes FHR Category:: Category I Uterine Activity:: q3-5minutes ROS Cardiovascular Cardiovascular: Denies abdominal pain, chest pain, diaphoresis, dyspnea, edema or fatigue Respiratory/Chest Respiratory/Chest: Denies change in mental status, chest congestion, chest tightness, cough, shortness of breath at rest or shortness of breath with exertion Gastrointestinal Gastrointestinal: Denies nausea or vomiting Genitourinary Genitourinary: Denies change in urinary stream Musculoskeletal Musculoskeletal: Reports none Integumentary Integumentary: Reports none Neurologic Neurologic: Reports none Psychiatric Psychiatric: Reports none Endocrine Endocrinology: Reports none Hematologic/Lymphatic Hematologic/Lymphatic: Reports none Allergic/Immunologic Allergic/Immunologic: Reports none Vital Signs Vital Signs Vital Signs: 07/09/22 18:53 07/09/22 18:53 07/09/22 18:53 Temperature Temperature Source Pulse Rate 100 Blood Pressure 122/77 H BP Systolic 122 BP Diastolic 77 Pulse Ox 98 07/09/22 18:48 07/09/22 18:48 Temperature 97.4 F L Temperature Source Temporal Pulse Rate Blood Pressure BP Systolic BP Diastolic Pulse Ox Weight Weight: 161 lb 1.6 oz Body Mass Index (BMI) 28.5 Physical Exam Const alert, oriented x3 and no apparent distress General Appearance: cooperative, comfortable and well kempt; Negative for in distress Orientation / Consciousness: awake and oriented to person Exam Limitations: no limitations HEENT normocephalic Mouth: oral and palatal mucosa normal Neck full ROM Chest inspection of chest normal Resp normal respiratory effort Effort and Inspection: able to speak in complete sentences and symmetric chest movement Cardio regular rate Peripheral Pulses: pulses 2+ throughout GI normal to inspection, nondistended, normoactive bowel sounds Inspection: gravid no CVA tenderness and appearance of the vagina normal External Female Exam: Negative for external lesion OB / External & Speculum: external exam normal Manual OB Exam: estimated gestational size appropriate and presentation cephalic Uterus Palpation: Negative for uterus tender Extremity normal to inspection Skin no rashes or lesions noted Neuro gait normal Psych Activity / Motor Behavior: appropriate eye contact Speech: normal speech Labs Labs Labs: Blood Type A POSITIVE Antibody Screen NEGATIVE Hct 30.3 % (37-47) L Hgb 10.4 g/dL (12.0-15.0) L Obstetrics US Syphilis Total Ab Non-reactive Rubella IgG Antibody Reactive (Nonreactive) Hep Bs Antigen Non-Reactive (Nonreactive) Chlamydia DNA (RORY) Negative (Negative) Neisseria gonorrhoeae DNA (ORRY) Negative (Negative) HIV 1&2 Antibody Non-Reactive (Nonreactive) Glucose 1 Hr 50 gm 120 mg/dL (70-140) Rhogam given: No Miscellaneous Test Assessment & Plan (1) Marginal insertion of umbilical cord: COMMENT: growth us in third trimester 32 and 36 wk ordered (2) GBS (group B Streptococcus carrier), +RV culture, currently : COMMENT: PCN in Labor (3) Thyroid disease affecting : COMMENT: labs ordered (4) : QUALIFIERS: Weeks of gestation: 38 weeks Qualified Code(s): Z3A.38 - 38 weeks gestation of COMMENT: anatomy nl, genetic and carrier ntd screening declined. echo @ 24 wks nl, 05/26 nl growth EFW 2015 gms +/- 302gm 38th%. 06/30 nl growth EFW 2957gms +/- 444gms 49%. (5) Supervision of high-risk : COMMENT: PRR GERMAN 07/13/22 girl [place] (6) ASCUS of cervix with negative high risk HPV: COMMENT: repeat pap 3 yrs (7) Chiari malformation type I: COMMENT: s/p MFM/neuro consult last . okay for vaginal delivery route. No epidural. (8) Spontaneous rupture of amniotic membranes: COMMENT: 1730, clear fluid PLAN: Plan Patient presents with + SROM at term labor admission Pain management:plans unmedicated GBS positive- PCN to start now Management of any complications: I have reviewed the [facility] and made any clinically relevant updates. Dr. Koo aware of admission and agrees with midwifery care. co-management for chiari malformation- stable
[2022-07-09 20:42] VITALS: BP 122/70; PULSE 80
[2022-07-09 22:07] VITALS: BP 121/65; PULSE 86; TEMP 36.9
[2022-07-09] MEDS: 0.9% Saline Lock 10 ML Syringe IV (22:08)
[2022-07-09 23:11] VITALS: BP 127/77; PULSE 93; TEMP 36.8
[2022-07-10] VITALS (21 sets, daily range): BP systolic 114–139; BP diastolic 55–84; PULSE 76–103; RESP 14–17; TEMP 36.6–37.5
[2022-07-10] MEDS: Penicillin G 3,000,000 Units 50 ML 100 UNITS IV (01:16)
--- NOTE | 2022-07-10 01:59 | EX.PCM.OBRPT ---
Assessment & Plan (1) (spontaneous vaginal delivery): COMMENT: SROM/IAL at term. unmedicated. girl:Annabelle Rouse. LC Maternal Data Information GERMAN Calculator Estimated Delivery Date Method Current WG Current Estimate 07/13/22 LMP (Certain) 39w 4d Vaginal Delivery Maternal Presentation Maternal Presentation: Spontaneous Rupture of Membranes Operative Information Date of Procedure: 07/10/22 Pre-Operative Diagnosis: Post-Operative Diagnosis: Surgery / Procedure Performed: Spontaneous Vaginal Delivery Type of Anesthesia: None Estimated Blood Loss: 200 Time of Delivery: 01:33 Findings Description of Procedure: Patient began pushing and delivered the head in the ALEXANDRE presentation. The head was delivered atraumatically and a tight nucal was noted The anterior and posterior shoulders delivered without complication followed by the rest of the infant and the infant was placed on the maternal abdomen. somersaulted over cord atraumatically. infant was initially floppy, dusky. dried and stimulated. APGARS 6 and 9 were awarded. Delayed cord clamping was employed for approximately 60 seconds. Cord was clamped and cut and gentle traction was applied to the cord and the placenta delivered spontaneously immediately following it was noted to be intact with three-vessel cord. The perineum and vagina were inspected and noted to have small superficial, non bleeding laceration. no repair required. EBL was 200ml. Patient and infant tolerated delivery well. Presentation: Vertex Amniotic Membrane Rupture Type: Spontaneous Time of Membrane Rupture: 1730 Amniotic Fluid Description: Clear Placental Delivery Description: Spontaneous Placenta Disposition: [facility] Cord Vessel Description: 3 Vessels Cord Entanglement: Around neck x 1, tight Nuchal Cord Compression: Without compression Infant A Gender: Female (1 minute): 6 (5 minute): 9 Procedures Urinary/Genital [id number]: [id number] Vaginal Delivery global pkg (CNM delivery)
[2022-07-10] MEDS: Levothyroxine 25 MCG TABLET PO (06:04)
[2022-07-11 02:59] VITALS: BP 117/67; PULSE 74
[2022-07-11 03:07] VITALS: BP 117/67; PULSE 74; RESP 17; TEMP 36.6
--- NOTE | 2022-07-11 03:38 | NURSING ---
this RN receieved report from veronica HONG. this RN to assume care of couplet at this time.
[2022-07-11] MEDS: Levothyroxine 25 MCG TABLET PO (06:54)
--- NOTE | 2022-07-11 08:07 | PCM.PN.OB ---
Subjective Subjective Patient doing well without complaints. Tolerating PO. Ambulating and voiding without difficulty. Feeding well. Denies chest pain, shortness of breath, calf pain/swelling, fevers, chills, lightheadedness. Objective Data Objective Data Vital Signs: Vital Signs Temp Pulse Resp BP Pulse Ox O2 Del Method 97.8 F 74 17 117/67 98 Room Air 07/11/22 03:07 07/11/22 03:07 07/11/22 03:07 07/11/22 03:07 07/09/22 18:53 07/10/22 15:39 Oxygen Delivery Method Room Air Weight: 161 lb 1.6 oz Body Mass Index (BMI) 28.5 Intake & Output: Intake and Output for Last 24 Hours 07/09/22 07/10/22 07/11/22 23:59 23:59 23:59 Intake Total 195.83 / 195.83 50 / 50 Output Total 950 / 950 Balance 195.83 / 195.83 -900 / -900 Lab / Micro Data Result Diagrams: 07/09/22 20:10 Physical Exam Const alert, oriented x3 and no apparent distress HEENT normocephalic Eyes PERRL Neck full ROM Chest inspection of chest normal Nipple/Areola: nipples/areola normal Resp normal respiratory effort Cardio regular rate and regular rhythm GI GI Narrative: fundus firm at u, no clots. bleeding normal
--- NOTE | 2022-07-11 08:08 | DCINST_ITS ---
Discharge Instructions Diet Discharge Diet: No restrictions Activity Discharge Activity: May Not Drive and May Shower May resume sexual activity in: 6 weeks Weight Bearing Status: Full weight bearing Dressing / Incision Call your doctor if your incision/area has: Sudden Increased Bleeding, Increased Pain/ Swelling and Foul Smelling Discharge Call your doctor if you observe: Fever of 101 or Higher, Numbness or Tingling, Change in Color, Inability to urinate, Inability to have a bowel movement, Using more than 1 pad per hour, Shortness of breath, Dizziness, Fainting spells, Chest pain, Calf discomfort and Uncontrolled pain Follow Up Care Please Follow Up With: Justina Guido CNM When: 6 weeks , please call office to make an appointment. Congratulations on the of your baby LYNDON!!! Test Results: Test results from this visit will be discussed in further detail at your follow- up appointment, if applicable. Discharge Plan Admission Admit Date/Time: 07/09/22 19:28 Attending Provider: Justina Guido Primary Care Provider: Warren Melendez Discharge Orders/Prescriptions Prescriptions: No Action vitamin#30 30 mg iron-10 mg iron-folic acid 1 mg-omg3 capsule 30 mg iron-10 mg iron-1 mg capsule 1 cap PO DAILY levothyroxine [Synthroid] 25 mcg tablet 25 mcg PO DAILY aspirin [Adult Aspirin Regimen] 81 mg tablet,delayed release (DR/EC) 81 mg PO DAILY Referrals / Follow Up: Warren Melendez MD [Primary Care Provider] - Disposition Disposition (needs filled in before D/C Order can be placed): Home, Self Care
[2022-07-11 09:04] VITALS: BP 110/69; PULSE 74; RESP 15; TEMP 36.5; O2SAT 98
[2022-07-11 09:08] VITALS: BP 110/69; PULSE 72
[2022-07-11 14:00] VITALS: BP 128/84; PULSE 88; RESP 15; TEMP 36.8; O2SAT 99
[2022-07-11 14:01] VITALS: BP 128/84; PULSE 84; PULSE 85; O2SAT 99
--- NOTE | 2022-07-11 15:37 | NURSING ---
Reviewed and agreed with Bri HONG charting.
--- NOTE | 2022-07-15 13:04 | NURSING ---
No answer follow up phone call,voicemail left
== END 2022-07-11 15:35 | disposition home or self-care (01) | DRG 805 ==
LOC: WPOUT 19:31 → WP 19:31
PROVIDERS: Admitting Provider Registered Nurse; PCP Family Medicine; Visit Provider Registered Nurse
DX: O42.92 Full-term premature rupture of membranes, unspecified as to length of time between rupture and onset of labor (principal); Z37.0 Single live birth; G93.5 Compression of brain; O99.354 Diseases of the nervous system complicating childbirth; E07.9 Disorder of thyroid, unspecified; O99.284 Endocrine, nutritional and metabolic diseases complicating childbirth; O43.193 Other malformation of placenta, third trimester; O69.81X0 Labor and delivery complicated by cord around neck, without compression, not applicable or unspecified; O99.824 Streptococcus B carrier state complicating childbirth; Z3A.39 39 weeks gestation of pregnancy; Z79.82 Long term (current) use of aspirin; Z79.899 Other long term (current) drug therapy
CPT/HCPCS: 59025; 59050; 84112; 85025; 86850; 86900; 86901; 99218; J7120; A4216; G0378

== ENCOUNTER → 2022-10-24 | Outpatient (CLI) | payer OTHER, SELFPAY ==
[2022-10-24 09:09] LABS: Anion Gap 3 (5-15); BUN 10 mg/dL (7-18); BUN/Creat Ratio 15.5 RATIO (10-20); Calcium,Total 8.7 mg/dL (8.5-10.1); Chloride 108 mmol/L (98-107); Cholesterol 152 mg/dL (200); Creatinine, Serum 0.64 mg/dL (0.55-1.02); EST Glomerular Filtration Rate 115 mL/min (>60); Est Glom Filt Rate - Afr Amer 139 mL/min (>60); Glucose 95 mg/dL (74-106); High Density Lipoprotein 44 mg/dL; Potassium 3.7 mmol/L (3.5-5.1); Sodium Level 139 mmol/L (136-145); T4 Free Direct 1.06 ng/dL (0.76-1.46); Thyroid Stim Hormone (TSH) 0.08 uIU/mL (0.358-3.74); Triglycerides 37 mg/dL; Very Low Density Lipoprotein 7 mg/dL (5-40)
== END | disposition home or self-care (01) ==
PROVIDERS: Registered Nurse; PCP Family Medicine; Referring Provider Family Medicine; Visit Provider Family Medicine
DX: Z00.00 Encounter for general adult medical examination without abnormal findings (principal); R53.83 Other fatigue; R94.6 Abnormal results of thyroid function studies
CPT/HCPCS: 36415; 80048; 80061; 84439; 84443

== ENCOUNTER → 2023-01-28 | Outpatient (CLI) | payer OTHER, SELFPAY ==
[2023-01-28 17:23] LABS: T4 Free Direct 0.65 ng/dL (0.76-1.46)
[2023-01-30 05:07] LABS: Thyroid Peroxidase AB > 600 IU/mL (0-34)
== END | disposition home or self-care (01) ==
LOC: LAB 16:23
PROVIDERS: PCP Family Medicine; Referring Provider Internal Medicine Endocrinology, Diabetes & Metabolism; Visit Provider Internal Medicine Endocrinology, Diabetes & Metabolism
DX: E06.9 Thyroiditis, unspecified (principal)
CPT/HCPCS: 36415; 84439; 84443; 86376

== ENCOUNTER → 2023-05-25 | Outpatient (CLI) | payer OTHER, SELFPAY ==
[2023-05-25 13:58] LABS: T4 Free Direct 0.87 ng/dL (0.76-1.46); Thyroid Stim Hormone (TSH) 1.36 uIU/mL (0.358-3.74)
== END | disposition home or self-care (01) ==
LOC: LAB 12:41
PROVIDERS: PCP Family Medicine; Visit Provider Internal Medicine Endocrinology, Diabetes & Metabolism
DX: E06.9 Thyroiditis, unspecified (principal)
CPT/HCPCS: 36415; 84439; 84443

== ENCOUNTER → 2023-07-27 | Outpatient (CLI) | payer OTHER, SELFPAY ==
--- OUTSIDE RECORDS SUMMARY | 2023-07-27 12:23 | XMS RPT_ITS | CCD ---
Author Name Unknown Address [address] [place] [address] Organization [facility] Care Team Providers Care Supply Controller Name Role Phone Jacky, Opal A. Unavailable [phone] LODHAWALA, VICTOR M B Unavailable Unavailable HOPPES, OPAL A Unavailable Unavailable LODHAWALA, VICTOR M B Unavailable Unavailable HOPPES, OPAL A Unavailable Unavailable LODHAWALA, VICTOR M B Unavailable Unavailable HOPPES, OPAL A Unavailable Unavailable HOPPES, OPAL A Unavailable Unavailable BEMYLA QUESADA T Unavailable Unavailable HOPPES, OPAL A Unavailable Unavailable LODHAWALA, VICTOR M B Unavailable Unavailable TABETDARREN MYLA Unavailable Unavail able STEPHY PORTER H Unavailable Unavailable PADMA LOPEZ Unavailable Unavail able HOPPES, OPAL A. Unavailable Unavailable Lodhawala, Victor M B Unavailable Unavailable Hoppes, Opal A Unavailable Unavailable DEVOLADRIÁN M. Unavailable Unavailable Hoppes, Opal A Unavailable Unavailable LODHAWALA, VICTOR M BHUPENDRABHAI Unavailable U navailable NANCY FORTUNE Attending Unavailable MADDIE AGUIAR Referring UnavailTRISTIAN Morris Primary Care Unavailable RAMBO LANGE Attending Unavailable MADDIE AGUIAR Referring Unavailab TRISTIAN Ortiz Primary Care Unavailable Allergies Allergy Classification Reported Allergen(s) Allergy Type Date of Onset Reaction(s) Facility (1 source) OTHER; Translations: [OTHER] Propensity to adverse reactions to food (disorder) 0 [facility] Repository Medications Current Medications Medication Drug Class(es) Dates Sig (Normalized) Sig (Original) meloxicam 15 mg oral tablet (1 source) Nonsteroidal Anti-inflammatory Drug Start: 02-11-2017 meloxicam (MOBIC) 15 MG tablet Problems Active Problems Problem Classification Problem Date Documented Da te Episodic/Chronic Menstrual disorders (1 source) Irregular periods Chronic Other non-traumatic joint disorders (1 source) Other specified arthritis, multiple sites; Translations: [OTHER SPECIFIED ARTHRITIS, MULTIPLE SITES] Onset: 03-18-2017 Chronic Unclassified (1 source) Unknown / UNK(Unknown) Onset: 04-23-2017 Past or Other Problems Problem Classification Problem Date Documented Date Episodic/Chronic Medical examination/evaluatio n (2 sources) Encounter for general adult medical examination without abnormal findings; Translations: [Encounter for general adult medical examination without abnormal findings] Onset: 01-23-2017 Episodic Other connective tissue disease (1 source) Hypermobility syndrome; 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] Onset: 03-18-2017 Episodic Unclassified (3 sources) Abnormal coagulation profile; Translations: [Abnormal coagulation profile] Onset: 01-19-2017 Episodic Unclassified (1 source) Menstrual Problem Onset: 04-23-2017 Results Test Name Value Interpretation Reference Range Facil ity Vital Signs Date Time Vital Sign Value Performing Clinician Efren lagunas 04-23-2017 13:41-0400 BP Diastolic 78 mm[Hg] Padmamoncho Lopez [facility] Work Phone: 04-23-2017 13:41-0400 BP Systolic 128 mm[Hg] Padma Lopez [facility] Work Phone: 04-23-2017 13:41-0400 Pulse (Heart Rate) 94 /min Padmamoncho Baughmelody [facility] Work Phone: 04-23-2017 13:41-0400 Weight 51.71 kg Padmamoncho Lopez [facility] Work Phone: Encounters Encounter Date Encounter Type Care Provider Facility Start: 03-28-2022 End: 03-28-[address] [facility] Start: 02-12-2022 End: 02-12-[address] [facility] Start: 10-30-2017 End: 10-30-2017 Ambulatory OPAL COOMBS Facility:[facility] Start: 08-18-2017 End: 08-18-2017 Ambulatory [facility] Facility:[facility] Start: 06-03-2017 Ambulatory DARREN REYES Facility:A Start: 04-23-2017 End: 04-23-2017 Ambulatory PADMA IAN KOCHARLES [facility] Ambulatory Start: 04-23-2017 Office outpatient visit 15 minutes Padmamoncho Garzail Caiocharles Work Phone: [facility] Start: 03-18-2017 End: 03-18-2017 Ambulatory ADRIÁN FLYNN Facility:[facility] Start: 02-06-2017 End: 02-06-2017 [facility] Start: 01-23-2017 End: 01-23-2017 Ambulatory VICTOR M [facility] Start: 01-23-2017 End: 01-23-2017 Ambulatory [facility] Facility:[facility] Start: 01-19-2017 End: 01-19-2017 Ambulatory [facility] Facility:[facility] Plan of Treatment Date Care Activity Detail Author Start: 07-03-2019 Screening for malignant neoplasm of cervix PAP SMEAR [facility] Work Phone: Start: 03-13-2017 Influenza vaccination SEQUENTIAL INFLUENZA VACCINE (#1) [facility] Work Phone: Start: 2004 Vaccination for human papillomavirus HPV VACCINES (1 of 3 - Female 3 Dose Series) [facility] Work Phone: Start: 1993 Tetanus vaccination TETANUS EVERY 10 YR [facility] Work Phone: Payers Date Payer Category Payer Unknown [id number] 2016 Private Health Insurance [id number] 2013 Unknown 1993 Unknown [id number] [id number] 1993 Unknown [id number] [id number] Unknown [id number] Social History Date Type Detail Facility Start: 04-23-2017 [facility] Work Phone: Sex Assigned At Not on file [facility] Work Phone: Assessments Diagnosis Irregular bleeding - Primary Irregular menstrual cycle Summary Purpose Family History No Family History Records FoundNo Family History Records FoundNo Family History Records FoundNo Family History Records FoundNo Family History Records FoundNo Family History Records Found Advance Directives No Advanced Directives Records FoundNo Advanced Directives Records FoundNo Advanced Directives Records FoundNo Advanced Directives Records FoundNo Advanced Directives Records FoundNo Advanced Directives Records Found Additional Source Comments INFORMATION SOURCE (unrecogn ized section and content) DATE CREATED AUTHOR AUTHOR'S ORGANIZ ATION 01/05/2018 [facility] ([place]) DATE CREATED AUTHOR AUTHOR'S ORGANIZ ATION 01/05/2018 [facility] DATE CREATED AUTHOR AUTHOR'S ORGANIZ ATION 01/06/2018 [facility] DATE CREATED AUTHOR AUTHOR'S ORGANIZ ATION 01/06/2018 [facility] DATE CREATED AUTHOR AUTHOR'S ORGANIZ ATION 04/12/2022 [facility] FOR RECORDS PERTAINING TO PATIENTS WHO ARE OR HAVE BEEN ENROLLED IN A CHEMICAL DEPENDENCY/SUBSTANCEABUSE PROGRAM, SOME INFORMATION MAY BE OMITTED. This clinical summary was aggregated from multiple sources. Caution should be exercised in using it in the provision of clinical care. This summary normalizes information from multiple sources, and as a consequence, information in this document may materially change the coding, format and clinical context of patient data. In addition, data may be omitted in some cases. CLINICAL DECISIONS SHOULD BE BASED ON THE PRIMARY CLINICAL RECORDS. [facility] [employer] [facility]. provides no warranty or guarantee of the accuracy or completeness of information in this document.
[2023-07-27 14:16] LABS: hCG Titer Quant., Serum 165 mIU/mL (1-3)
== END | disposition home or self-care (01) ==
LOC: LAB 11:49
PROVIDERS: PCP Family Medicine; Referring Provider Nurse Practitioner Women's Health; Visit Provider Nurse Practitioner Women's Health
DX: N91.2 Amenorrhea, unspecified (principal)
CPT/HCPCS: 36415; 84702

== ENCOUNTER → 2023-07-29 | Outpatient (CLI) | payer OTHER, SELFPAY ==
--- OUTSIDE RECORDS SUMMARY | 2023-07-29 12:21 | XMS RPT_ITS | CCD ---
Author Name Unknown Address [address] [place] [address] Organization [facility] Care Team Providers Care Aquatic Facility Manager Name Role Phone Jacky, Opal A. Unavailable [phone] LODHAWALA, VICTOR M B Unavailable Unavailable [...] Referring UnavailTRISTIAN Morris Primary Care Unavailable RAMBO LNAGE Attending Unavailable MADDIE AGUIAR Referring Unavailab TRISTIAN Ortiz Primary Care Unavailable Allergies Allergy Classification Reported Allergen(s) Allergy Type Date of Onset Reaction(s) Facility (1 source) OTHER; Translations: [OTHER] Propensity to adverse reactions to food (disorder) 0 [facility] Repository Medications Current Medications Medication Drug Class(es) [...] 13:41-0400 BP Diastolic 78 mm[Hg] Padmamoncho Lopez [facility] Work Phone: 04-23-2017 13:41-0400 BP Systolic 128 mm[Hg] Padma Lopez [facility] Work Phone: 04-23-2017 13:41-0400 Pulse (Heart Rate) 94 /min Padmamoncho Baughmelody [facility] Work Phone: 04-23-2017 13:41-0400 Weight 51.71 kg Padmamoncho Lopez [facility] Work Phone: Encounters Encounter Date Encounter Type Care Provider Facility Start: 03-28-2022 End: 03-28-2022 ambulatory RAMBO LANGE [facility] Start: 02-12-2022 End: 02-12-2022 ambulatory NANCY FORTUNE [facility] Start: 10-30-2017 End: 10-30-2017 Ambulatory OPAL COOMBS Facility:[facility] Start: 08-18-2017 End: 08-18-2017 Ambulatory [facility] Start: 06-03-2017 Ambulatory DARREN REYES Facility:A Start: 04-23-2017 End: 04-23-2017 Ambulatory PADMA IAN KOCHARLES [facility] Ambulatory Start: 04-23-2017 Office outpatient visit 15 minutes Padmamoncho Garzail Caiocharles Work Phone: [facility] Start: 03-18-2017 End: 03-18-2017 Ambulatory ADRIÁN FLYNN Facility:[facility] Start: 02-06-2017 End: 02-06-2017 [facility] Start: 01-23-2017 End: 01-23-2017 Ambulatory VICTOR M [facility] Start: 01-23-2017 End: 01-23-2017 Ambulatory [facility] Facility:[facility] Start: 01-19-2017 End: 01-19-2017 Ambulatory [facility] Facility:[facility] Plan of Treatment Date Care Activity Detail Author Start: 07-03-2019 Screening for malignant neoplasm of cervix PAP SMEAR [facility] Work Phone: Start: 03-13-2017 Influenza vaccination SEQUENTIAL INFLUENZA VACCINE (#1) [facility] Work Phone: Start: 2004 Vaccination for human papillomavirus HPV VACCINES (1 of 3 - Female 3 Dose Series) [facility] Work Phone: Start: 1993 Tetanus vaccination TETANUS EVERY [address] [facility] Work Phone: Payers Date Payer Category Payer Unknown [id number] 2016 Private Health Insurance [id number] 2013 Unknown 1993 Unknown [id number] [id number]. [id number] 1993 Unknown [id number] [id number]. [id number] Unknown [id number] Social History Date Type Detail Facility Start: 04-23-2017 [facility] Work Phone: Sex Assigned At Not on file [facility] Work Phone: Assessments Diagnosis Irregular bleeding - [...] DATE CREATED AUTHOR AUTHOR'S ORGANIZ ATION 01/05/2018 [facility] ([place]) DATE CREATED AUTHOR AUTHOR'S ORGANIZ ATION 01/05/2018 [facility] DATE CREATED AUTHOR AUTHOR'S ORGANIZ ATION 01/06/2018 [facility] DATE CREATED AUTHOR AUTHOR'S ORGANIZ ATION 01/06/2018 [facility] DATE CREATED AUTHOR AUTHOR'S ORGANIZ ATION 04/12/2022 [facility] FOR RECORDS PERTAINING TO PATIENTS WHO ARE [...] BE BASED ON THE PRIMARY CLINICAL RECORDS. [facility] [employer] [facility]. provides no warranty or guarantee of the accuracy or completeness of information in this document.
[2023-07-29 13:06] LABS: hCG Titer Quant., Serum 216 mIU/mL (1-3)
== END | disposition home or self-care (01) ==
LOC: LAB 12:04
PROVIDERS: PCP Family Medicine; Referring Provider Nurse Practitioner Women's Health; Visit Provider Nurse Practitioner Women's Health
DX: Z34.90 Encounter for supervision of normal pregnancy, unspecified, unspecified trimester (principal); N91.2 Amenorrhea, unspecified
CPT/HCPCS: 36415; 84702

== ENCOUNTER → 2023-08-03 | Outpatient (CLI) | payer OTHER, SELFPAY ==
[2023-08-03 13:21] LABS: hCG Titer Quant., Serum 31 mIU/mL (1-3)
== END | disposition home or self-care (01) ==
LOC: LAB 11:22
PROVIDERS: PCP Family Medicine; Referring Provider Nurse Practitioner Women's Health; Visit Provider Nurse Practitioner Women's Health
DX: Z34.90 Encounter for supervision of normal pregnancy, unspecified, unspecified trimester (principal)
CPT/HCPCS: 36415; 84702

== ENCOUNTER → 2023-08-17 | Outpatient (CLI) | payer OTHER, SELFPAY ==
[2023-08-17 12:50] LABS: hCG Titer Quant., Serum < 1 mIU/mL (1-3)
== END | disposition home or self-care (01) ==
LOC: LAB 11:02
PROVIDERS: PCP Family Medicine; Referring Provider Nurse Practitioner Women's Health; Visit Provider Nurse Practitioner Women's Health
DX: O03.9 Complete or unspecified spontaneous abortion without complication (principal)
CPT/HCPCS: 36415; 84702

== ENCOUNTER → 2023-09-21 | Outpatient (CLI) | payer OTHER, SELFPAY ==
[2023-09-21 14:25] LABS: Free T3 2.8 pg/mL (2.18-3.98); T4 Free Direct 1.01 ng/dL (0.76-1.46); Thyroid Stim Hormone (TSH) 2.17 uIU/mL (0.358-3.74)
--- OUTSIDE RECORDS SUMMARY | 2023-09-21 15:35 | XMS RPT_ITS | CCD ---
Author Name Unknown Address [address] [place] [address] Organization [facility] Care Team Providers Care Director Public Policy Name Role Phone Jacky, Opal A. Unavailable [phone] LODHAWALA, VICTOR M B Unavailable Unavailable [...] Unavail able STEPHY PORTER H Unavailable Unavailable KOPADMA SOTO Unavailable Unavail able HOPPES, OPAL A. Unavailable [...] to adverse reactions to food (disorder) 0 [facility] Repository Medications Current Medications Medication Drug [...] 13:41-0400 BP Diastolic 78 mm[Hg] Padmamoncho Lopez [facility] Work Phone: 04-23-2017 13:41-0400 BP Systolic 128 mm[Hg] Padma Lopez [facility] Work Phone: 04-23-2017 13:41-0400 Pulse (Heart Rate) 94 /min Padmamoncho Baughmelody [facility] Work Phone: 04-23-2017 13:41-0400 Weight 51.71 kg Padmamoncho Lopez [facility] Work Phone: Encounters Encounter Date Encounter Type Care Provider Facility Start: 03-28-2022 End: 03-28-2022 ambulatory RAMBO LANGE [facility] Start: 02-12-2022 End: 02-12-2022 ambulatory NANCY FORTUNE [facility] Start: 10-30-2017 End: 10-30-2017 Ambulatory OPAL COOMBS Facility:[facility] Start: 08-18-2017 End: 08-18-2017 [facility] Start: 06-03-2017 Ambulatory DARREN REYES Facility:A Start: 04-23-2017 End: 04-23-2017 Ambulatory PADMA IAN KOCHARLES [facility] Ambulatory Start: 04-23-2017 Office outpatient visit 15 minutes Padmamoncho Garzail Caiocharles Work Phone: [facility] Start: 03-18-2017 End: 03-18-2017 Ambulatory ADRIÁN FLYNN Facility:[facility] Start: 02-06-2017 End: 02-06-2017 [facility] Start: 01-23-2017 End: 01-23-2017 Ambulatory VICTOR M [facility] Start: 01-23-2017 End: 01-23-2017 Ambulatory [facility] Facility:[facility] Start: 01-19-2017 End: 01-19-2017 Ambulatory [facility] Facility:[facility] Plan of Treatment Date Care Activity Detail Author Start: 07-03-2019 Screening for malignant neoplasm of cervix PAP SMEAR [facility] Work Phone: Start: 03-13-2017 Influenza vaccination SEQUENTIAL INFLUENZA VACCINE (#1) [facility] Work Phone: Start: 2004 Vaccination for human papillomavirus HPV VACCINES (1 of 3 - Female 3 Dose Series) [facility] Work Phone: Start: 1993 Tetanus vaccination TETANUS EVERY 10 YR [facility] Work Phone: Payers Date Payer Category Payer Unknown [id number] 2016 Private Health Insurance [id number] 2013 Unknown 1993 Unknown [id number] [id number]. [id number] 1993 Unknown [id number] [id number]. [id number] Unknown [id number] Social History Date Type Detail Facility Start: 04-23-2017 [facility] Work Phone: Sex Assigned At Not on file [facility] Work Phone: Assessments Diagnosis Irregular bleeding - [...] DATE CREATED AUTHOR AUTHOR'S ORGANIZ ATION 01/05/2018 [facility] ([place]) DATE CREATED AUTHOR AUTHOR'S ORGANIZ ATION 01/05/2018 [facility] DATE CREATED AUTHOR AUTHOR'S ORGANIZ ATION 01/06/2018 [facility] DATE CREATED AUTHOR AUTHOR'S ORGANIZ ATION 01/06/2018 [facility] DATE CREATED AUTHOR AUTHOR'S ORGANIZ ATION 04/12/2022 [facility] FOR RECORDS PERTAINING TO PATIENTS WHO [...] BE BASED ON THE PRIMARY CLINICAL RECORDS. [facility] [employer] [facility]. provides no warranty or guarantee of the accuracy or completeness of information in this document.
== END | disposition home or self-care (01) ==
LOC: LAB 12:24
PROVIDERS: PCP Family Medicine; Referring Provider Registered Nurse; Visit Provider Registered Nurse
DX: E06.9 Thyroiditis, unspecified (principal)
CPT/HCPCS: 36415; 84439; 84443; 84481

== ENCOUNTER → 2023-09-25 | Outpatient (CLI) | payer OTHER, SELFPAY ==
--- OUTSIDE RECORDS SUMMARY | 2023-09-25 17:55 | XMS RPT_ITS | CCD ---
Author Name Unknown Address [address] [place] [address] Organization [facility] Care Team Providers Care Antique Dealer Name Role Phone Jacky, Opal A. Unavailable [phone] LODHAWALA, VICTOR M B Unavailable Unavailable [...] to adverse reactions to food (disorder) 0 [facility] Repository Medications Current Medications Medication Drug Class(es) [...] 13:41-0400 BP Diastolic 78 mm[Hg] Padmamoncho Lopez [facility] Work Phone: 04-23-2017 13:41-0400 BP Systolic 128 mm[Hg] Padma Lopez [facility] Work Phone: 04-23-2017 13:41-0400 Pulse (Heart Rate) 94 /min Padmamoncho Baughmelody [facility] Work Phone: 04-23-2017 13:41-0400 Weight 51.71 kg Padmamoncho Lopez [facility] Work Phone: Encounters Encounter Date Encounter Type Care Provider Facility Start: 03-28-2022 End: 03-28-2022 ambulatory RAMBO LANGE [facility] Start: 02-12-2022 End: 02-12-2022 ambulatory NANCY FORTUNE [facility] Start: 10-30-2017 End: 10-30-2017 Ambulatory OPAL COOMBS Facility:[facility] Start: 08-18-2017 End: 08-18-2017 [facility] Start: 06-03-2017 Ambulatory DARREN REYES Facility:A Start: 04-23-2017 End: 04-23-2017 Ambulatory PADMA IAN KOCHARLES [facility] Ambulatory Start: 04-23-2017 Office outpatient visit 15 minutes Padmamoncho Garzail Caiocharles Work Phone: [facility] Start: 03-18-2017 End: 03-18-2017 Ambulatory ADRIÁN FLYNN Facility[facility] Start: 02-06-2017 End: 02-06-2017 [facility] Start: 01-23-2017 End: 01-23-2017 Ambulatory [facility] Start: 01-23-2017 End: 01-23-2017 Ambulatory [facility] Facility[facility] Start: 01-19-2017 End: 01-19-2017 Ambulatory [facility] Plan of Treatment Date Care Activity Detail Author Start: 07-03-2019 Screening for malignant neoplasm of cervix PAP SMEAR [facility] Work Phone: Start: 03-13-2017 Influenza vaccination SEQUENTIAL INFLUENZA VACCINE (#1) [facility] Work Phone: Start: 2004 Vaccination for human papillomavirus HPV VACCINES (1 of 3 - Female 3 Dose Series) [facility] Work Phone: Start: 1993 Tetanus vaccination TETANUS EVERY 10 YR [facility] Work Phone: Payers Date Payer Category Payer Unknown [id number] 2016 Private Health Insurance [id number] 2013 Unknown 1993 Unknown [id number] [id number] 1993 Unknown [id number] [id number] Unknown [id number] Social History Date Type Detail Facility Start: 04-23-2017 [facility] Work Phone: Sex Assigned At Not on file [facility] Work Phone: Assessments Diagnosis Irregular bleeding [...] DATE CREATED AUTHOR AUTHOR'S ORGANIZ ATION 01/05/2018 [facility] ([place]) DATE CREATED AUTHOR AUTHOR'S ORGANIZ ATION 01/05/2018 [facility] DATE CREATED AUTHOR AUTHOR'S ORGANIZ ATION 01/06/2018 [facility] DATE CREATED AUTHOR AUTHOR'S ORGANIZ ATION 01/06/2018 [facility] DATE CREATED AUTHOR AUTHOR'S ORGANIZ ATION 04/12/2022 [facility] FOR RECORDS PERTAINING TO PATIENTS WHO ARE [...] BE BASED ON THE PRIMARY CLINICAL RECORDS. [facility] [employer] [facility]. provides no warranty or guarantee of the accuracy or completeness of information in this document.
[2023-09-30 11:09] LABS: HPV APTIMA, High Risk Negative (Negative)
== END | disposition home or self-care (01) ==
LOC: LABSPEC 12:52
PROVIDERS: PCP Family Medicine; Referring Provider Registered Nurse; Visit Provider Registered Nurse
DX: Z12.4 Encounter for screening for malignant neoplasm of cervix (principal)
CPT/HCPCS: 87624; 88175; G0145

== ENCOUNTER → 2023-12-14 | Outpatient (CLI) | payer OTHER, SELFPAY ==
[2023-12-14 13:49] LABS: T4 Free Direct 1.01 ng/dL (0.76-1.46); Thyroid Stim Hormone (TSH) 2.76 uIU/mL (0.358-3.74)
[2023-12-14 15:10] LABS: hCG Titer Quant., Serum 2059 mIU/mL (1-3)
== END | disposition home or self-care (01) ==
LOC: LAB 09:29
PROVIDERS: Internal Medicine Endocrinology, Diabetes & Metabolism; PCP Family Medicine; Referring Provider Advanced Practice Midwife; Visit Provider Advanced Practice Midwife
DX: N91.2 Amenorrhea, unspecified (principal); E03.8 Other specified hypothyroidism; E06.3 Autoimmune thyroiditis
CPT/HCPCS: 36415; 84439; 84443; 84702

== ENCOUNTER → 2023-12-16 | Outpatient (CLI) | payer OTHER, SELFPAY ==
[2023-12-16 18:11] LABS: hCG Titer Quant., Serum 3128 mIU/mL (1-3)
== END | disposition home or self-care (01) ==
LOC: LAB 16:04
PROVIDERS: PCP Family Medicine; Visit Provider Advanced Practice Midwife
DX: Z34.90 Encounter for supervision of normal pregnancy, unspecified, unspecified trimester (principal)
CPT/HCPCS: 36415; 84702

== ENCOUNTER → 2023-12-18 | Outpatient (CLI) | payer OTHER, SELFPAY ==
--- NOTE | 2023-12-18 12:58 | US_ITS ---
STUDY: FIRST TRIMESTER OBSTETRICAL ULTRASOUND REASON FOR EXAM: Female, 28 years old viability LMP: November 17, 2023. TECHNIQUE: Transvaginal TECHNICAL QUALITY: Adequate. PRIOR ULTRASOUND: None. FINDINGS: There is visualization of a single gestational sac in a normal intrauterine position. The mean sac diameter (MSD) measures 1.2 cm, indicating an estimated gestational age (EGA) of 6 weeks, 0 days. The gestational sac shape is within normal limits. There is a visualized yolk sac. The yolk sac measures 2.2 mm. The placenta is non-visualized. There is no demonstrated embryo ( pole). The estimated gestation age (EGA) by LMP is 6 weeks, 3 days. The estimated date of delivery (GERMAN) by LMP is August 09, 2024. The estimated gestation age (EGA) by US is 6 weeks, 0 days. The estimated date of delivery (GERMAN) by US is August 12 2024. The uterus measures 7.9 cm x 7.2 cm x 4.9 cm. There is no demonstrated uterine fibroid. The cervix is closed. The right ovary measures 2.9 cm x 2.6 cm x 2.4 cm. There is no right ovarian cyst. There is no visualized right adnexal mass or complex lesion. The left ovary measures 3.2 cm x 2.9 cm x 2 cm. There is no left ovarian cyst. There is no visualized left adnexal mass or complex lesion. There is no fluid in the cul de sac. US/Transvaginal w/Preg US IMPRESSION: Intrauterine gestational sac with mean gestational age of 6 weeks. No pole seen at this time. Follow-up recommended. Electronically Signed: Lenard Nunes MD at 14:23 EDT ,
== END | disposition home or self-care (01) ==
LOC: OPUS 12:57
PROVIDERS: PCP Family Medicine; Referring Provider Advanced Practice Midwife; Visit Provider Advanced Practice Midwife
DX: Z34.90 Encounter for supervision of normal pregnancy, unspecified, unspecified trimester (principal)
CPT/HCPCS: 76817

== ENCOUNTER → 2023-12-23 | Outpatient (CLI) | payer OTHER, SELFPAY ==
[2023-12-23 14:38] LABS: Absolute Lymphocyte Count 1.92 X10^3/uL (0.83-4.51); Absolute Neutrophil Count 6.2 X10^3/uL (2.0-7.7); Basophil# 0.05 X10^3/uL; Basophil% 0.6 % (0-1); Eosinophils% 2.2 % (0-5); Hematocrit 36.3 % (37-47); Hemoglobin 12.4 g/dL (12.0-15.0); Lymphocyte # 1.92 X10^3/ul (0.83-4.51); Lymphocyte % 21.4 % (19-41); Mean Corp Hgb Conc 34.2 g/dL (32-36); Mean Corpuscular Hgb 29.7 pg (27.0-32.0); Mean Corpuscular Volume 87.1 fL (81-99); Mean Platelet Vol. 9.2 fl (6.2-12.0); Monocyte# 0.64 X10^3/uL; Monocyte% 7.1 % (0-10); NRBC Flagged by Analyzer 0 % (0-5); Neutrophil # 6.15 X10^3/uL (2.7-7.7); Neutrophil % 68.5 % (47-70); Platelet Count 277 K/mm3 (150-450); RBC Distribution Width CV 12.1 % (11.6-14.6); Red Blood Count 4.17 M/mm3 (4.2-5.4)
[2023-12-23 15:42] LABS: hCG Titer Quant., Serum 10399 mIU/mL (1-3)
[2023-12-23 15:57] LABS: HIV - WCH Non-Reactive (Nonreactive); Hepatitis B Surface Antigen Non-Reactive (Nonreactive); Hepatitis C Antibody Non-Reactive (Nonreactive); Rubella IgG Reactive (Nonreactive); Syphilis Antibodies Non-reactive
== END | disposition home or self-care (01) ==
LOC: LAB 13:43
PROVIDERS: Obstetrics & Gynecology; PCP Family Medicine; Referring Provider Advanced Practice Midwife; Visit Provider Advanced Practice Midwife
DX: O09.90 Supervision of high risk pregnancy, unspecified, unspecified trimester (principal); Z3A.00 Weeks of gestation of pregnancy not specified
CPT/HCPCS: 36415; 84702; 85025; 86703; 86762; 86780; 86803; 86850; 86900; 86901; 87340

== ENCOUNTER → 2023-12-24 | Outpatient (CLI) | payer OTHER, SELFPAY ==
--- NOTE | 2023-12-24 07:58 | US_ITS ---
STUDY: FIRST TRIMESTER OBSTETRICAL ULTRASOUND REASON FOR EXAM: Female, 28 years old viability LMP: November 17, 2023. TECHNIQUE: Transvaginal TECHNICAL QUALITY: Adequate. PRIOR ULTRASOUND: None. FINDINGS: There is visualization of a single gestational sac in a normal intrauterine position. The mean sac diameter (MSD) measures 1.74 cm, indicating an estimated gestational age (EGA) of 6 weeks, 4 days. The gestational sac shape is within normal limits. There is a visualized yolk sac. The yolk sac measures 3.4 mm. The placenta is non-visualized. There is no demonstrated embryo ( pole). The estimated gestation age (EGA) by LMP is 7 weeks, 2 days. The estimated date of delivery (GERMAN) by LMP is August 09, 2024. The estimated gestation age (EGA) by US is 6 weeks, 4 days. The estimated date of delivery (GERMAN) by US is August 14, 2024. The uterus measures 8.7 cm x 8.2 cm x 5.4 cm. There is no demonstrated uterine fibroid. The cervix is closed. The right ovary measures 2.8 cm x 2.4 cm x 2 cm. There is no right ovarian cyst. There is no visualized right adnexal mass or complex lesion. The left ovary measures 3.2 cm x 2.6 x 2.5 cm. There is a 2.5 cm x 2 cm x 1.9 cm corpus luteum cyst. There is no visualized left adnexal mass or complex lesion. There is no fluid in the cul de sac. US/Transvaginal w/Preg US IMPRESSION: Single live uterine gestation with a mean gestational age of 6 weeks and 4 days. Electronically Signed: Lenard Nunes MD at 13:44 EDT ,
== END | disposition home or self-care (01) ==
LOC: OPUS 07:58
PROVIDERS: PCP Family Medicine; Referring Provider Obstetrics & Gynecology; Visit Provider Obstetrics & Gynecology
DX: Z34.90 Encounter for supervision of normal pregnancy, unspecified, unspecified trimester (principal)
CPT/HCPCS: 76817

== ENCOUNTER → 2023-12-29 | Outpatient (CLI) | payer OTHER, SELFPAY ==
[2023-12-31 20:09] LABS: Chlamydia By Nucleic Acid AMP Negative (Negative); Gonococcus By Nucleic Acid AMP Negative (Negative)
== END | disposition home or self-care (01) ==
LOC: LABSPEC 16:24
PROVIDERS: PCP Family Medicine; Referring Provider Advanced Practice Midwife; Visit Provider Advanced Practice Midwife
DX: O09.90 Supervision of high risk pregnancy, unspecified, unspecified trimester (principal); Z3A.00 Weeks of gestation of pregnancy not specified
CPT/HCPCS: 87086; 87491; 87591

== ENCOUNTER → 2024-01-08 | Outpatient (CLI) | payer OTHER, SELFPAY ==
--- NOTE | 2024-01-08 08:41 | US_ITS ---
We are attempting to reach an attending provider to discuss findings. An addendum with communication details will be sent when the communication is complete. STUDY: FIRST TRIMESTER OBSTETRICAL ULTRASOUND REASON FOR EXAM: Female, 28 years old confirm miscarriage/rule out molar LMP: 11/16/2023 TECHNIQUE: Transvaginal TECHNICAL QUALITY: Adequate. PRIOR ULTRASOUND: 12/24/2023 FINDINGS: There is visualization of a single gestational sac in a normal intrauterine position. The mean sac diameter (MSD) measures 29 mm, indicating an estimated gestational age (EGA) of 8 weeks, 0 days. The gestational sac shape is within normal limits. There is a visualized yolk sac. The yolk sac measures 5 mm. The placenta is non-visualized. There is no demonstrated embryo ( pole).. The estimated gestation age (EGA) by LMP is 7 weeks, 4 days. The estimated date of delivery (GERMAN) by LMP is 08/22/2024. The estimated gestation age (EGA) by US is 8 weeks, 0 days. The estimated date of delivery (GERMAN) by US is 08/19/2024. The uterus measures 9.2 x 6.2 x 7.5 cm. There is no demonstrated uterine fibroid. The cervix is closed. The right ovary measures 2.3 x 2.1 x 3.37. There is no right ovarian cyst. There is no visualized right adnexal mass or complex lesion. The left ovary measures 3.1 x 2.6 x 3.6 cm. There is no left ovarian cyst. There is no visualized left adnexal mass or complex lesion. There is no fluid in the cul de sac. US/Transvaginal w/Preg US IMPRESSION: Gestational sac of 8 weeks 0 days with a yolk sac but no identifiable pole. Differential diagnosis includes an incomplete or an embryonic (blighted ovum) is. Electronically Signed: Duncan Luo MD at 12:17 EDT ,
== END | disposition home or self-care (01) ==
LOC: OPUS 08:40
PROVIDERS: PCP Family Medicine; Referring Provider Obstetrics & Gynecology; Visit Provider Obstetrics & Gynecology
DX: O03.9 Complete or unspecified spontaneous abortion without complication (principal)
CPT/HCPCS: 76817

== ENCOUNTER 2024-01-11 11:59 | Day surgery (SDC) | payer OTHER, SELFPAY ==
[2024-01-11] VITALS (8 sets, daily range): BP systolic 100–110; BP diastolic 59–76; PULSE 66–73; RESP 14–16; TEMP 36.4–37.1; O2SAT 98–100; BMI 22.6
--- NOTE | 2024-01-11 12:17 | PCM.PRE.AN2 ---
ASA Classification* ASA Classification ASA Classification: 2 Assessment & Plan Anesthesia* Anesthesia Assessment Anesthesia Assessment: Discussed sedation and/or anesthesia options, risks, benefits, and alternatives with patient/parents/legal guardian/POA. Questions invited. The patient/parents/legal guardian/POA seems to understand and agrees to proceed with anesthesia plan. Reviewed the physical assessment, medical history, allergy history and patient home medications list prior to surgery/procedure/anesthetic and documented any changes. Performed airway and anesthesia risk assessments. Anesthesia Type Anesthesia Type: MAC (see written pre anesthesia record for full assessment) Anesthesia Focused Assessment* Airway Assessment Mouth opens: >3 cm Mallampati Score: II Focused Labs Anesthesia Preop lab: CBC WBC 9.0 K/mm3 (4.4-11.0) 12/23/23 13:56 RBC 4.17 M/mm3 (4.2-5.4) L 12/23/23 13:56 Hgb 12.4 g/dL (12.0-15.0) 12/23/23 13:56 Hct 36.3 % (37-47) L 12/23/23 13:56 Plt Count 277 K/mm3 (150-450) 12/23/23 13:56 CHEMISTRY Potassium 3.7 mmol/L (3.5-5.1) 10/24/22 08:16 Sodium 139 mmol/L (136-145) 10/24/22 08:16 BUN 10 mg/dL (7-18) 10/24/22 08:16 Creatinine 0.64 mg/dL (0.55-1.02) 10/24/22 08:16 Glucose 95 mg/dL (74-106) 10/24/22 08:16 TSH 2.76 uIU/mL (0.358-3.74) 12/14/23 09:52 COAG HCG, Quant 50854 mIU/mL (1-3) H 12/23/23 13:58 Tst Clinic Negative 04/25/19 14:17 Pre-Assessment Diagnosis/Proposed Procedure Planned Operative Procedure(s): SUCTION D&C Anesthesia History 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 When Was Last Pacemaker Check QUESTION #4 FULL TEXT: You/Your Family Experience fever (hyperthermia) with Anesthesia Last Oral Intake Last Oral intake: Last Oral Intake NPO since Meds taken in AM with sips of water? Meds patient instructed to take am of surgery PONV PONV - bandsaw operator: PONV - bandsaw operator Female Yes 01/08/24 13:15 HX of Motion Sickness Yes 01/08/24 13:15 HX of N/V After Surgery No 01/08/24 13:15 Non-Smoker Yes 01/08/24 13:15 Duration of Surgery greater No 01/08/24 13:15 than 60 minutes Number of Risk Factors 3 01/08/24 13:15 PONV Score Moderate Risk 01/08/24 13:15 Height & Weight Height & Weight: Anesthesia: Height & Weight Height 5 ft 3 in 01/07/24 16:14 Respiratory Assessment Respiratory Assessment - bandsaw operator: Respiratory Tract Infection Hx - bandsaw operator Hx Respiratory Tract Infection No 01/08/24 13:15 STOP Sleep Apnea STOP Sleep Apnea - bandsaw operator: STOP Sleep Apnea - bandsaw operator Hx Hypertension No 01/08/24 13:15 Hx Sleep Apnea No 01/08/24 13:15 CPAP BIPAP Do you snore loudly (louder Yes 01/08/24 13:15 than talking or can be heard Do you often feel tired/ No 01/08/24 13:15 fatigued/ sleepy during daytime? Has anyone observed you stop No 01/08/24 13:15 breathing during sleep? STOP Results Negative 01/08/24 13:15 QUESTION #5 FULL TEXT : Do you snore loudly (louder than talking or can be heard through closed doors)? 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 Specify any problems Hx of Preganancy in last 3 Yes 01/08/24 13:15 Months Nurse Filling Out Transfusion DSCHRIBER 01/08/24 13:15 & Questions: Date: 01/08/24 01/08/24 13:15 Time: 13:16 01/08/24 13:15 Patient unable to answer at this time (ie. 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 SAB (spontaneous ) Thyroiditis (spontaneous vaginal delivery) Spontaneous rupture of amniotic membranes Thyroid disorder GBS (group B Streptococcus carrier), +RV culture, currently Thyroid disease affecting Supervision of high-risk Amenorrhea ASCUS of cervix with negative high risk HPV 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 Home Medications ?Medication ?Instructions ?Recorded ?Last Taken ?Type vitamin#30 30 mg iron-10 1 cap PO DAILY 04/07/19 Unknown History mg iron-folic acid 1 mg-omg3 capsule levothyroxine 50 mcg tablet 50 mcg PO DAILY #90 tabs 11/06/23 Unknown Rx aspirin 81 mg tablet,delayed 81 mg PO DAILY 12/22/23 01/07/24 History release (Adult Aspirin Regimen) Allergy/AdvReac Type Severity Reaction Status Date / Time banana Allergy Mild RASH Verified 01/08/24 13:13 Latex, Natural Rubber Allergy Mild Rash Verified 01/08/24 13:13 Family History Father , BLOOD CLOT BLOOD CLOT Surgical History H/O wisdom tooth extraction Social History adopted: No household members: family housing: house number of children: 2 current occupational status: employed 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[employer] pets and animals: Yes (Outside dog and chickens) pets and animals: dog(s) and farm animals history of recent travel: No sexually active: Yes Smoking Status: Never smoker alcohol intake: never substance use type: does not use well-balanced diet: daily or most days caffeine: No eating out: rarely or never during the past year weight has: decreased > 10 lbs what type of physical activity do you participate in: walking frequency: 1-2 times per week duration: 15-30 minutes/day femi/uatsdin: Sikhism seatbelt use: always do you feel safe at home: Yes additional social history: Baring- nurse at [employer] [employer] [facility] Review of Systems (Anesthesia) ROS Narrative System reviewed and no additional complaints, except as documented.
[2024-01-11] MEDS: Doxycycline 100 MG CAPSULE PO (12:44)
[2024-01-11] MEDS: Lactated Ringers 1,000 ML 15 ML IV (12:44)
--- NOTE | 2024-01-11 13:08 | PCM.HP.OB ---
HPI - General HPI Narrative CECY GALLEGOS, is a 28 F who presents with 8 week missed ab. no pole. 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 SAB (spontaneous ) Thyroiditis (spontaneous vaginal delivery) Spontaneous rupture of amniotic membranes Thyroid disorder GBS (group B Streptococcus carrier), +RV culture, currently Thyroid disease affecting Supervision of high-risk Amenorrhea ASCUS of cervix with negative high risk HPV 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 Home Medications ?Medication ?Instructions ?Recorded ?Last Taken ?Type vitamin#30 30 mg iron-10 1 cap PO DAILY 04/07/19 Unknown History mg iron-folic acid 1 mg-omg3 capsule levothyroxine 50 mcg tablet 50 mcg PO DAILY #90 tabs 11/06/23 01/11/24 Rx aspirin 81 mg tablet,delayed 81 mg PO DAILY 12/22/23 01/07/24 History release (Adult Aspirin Regimen) Allergy/AdvReac Type Severity Reaction Status Date / Time banana Allergy Mild RASH Verified 01/11/24 12:37 Latex, Natural Rubber Allergy Mild Rash Verified 01/11/24 12:37 Family History Father , BLOOD CLOT BLOOD CLOT Surgical History H/O wisdom tooth extraction Social History adopted: No household members: family housing: house number of children: 2 current occupational status: employed 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[employer] pets and animals: Yes (Outside dog and chickens) pets and animals: dog(s) and farm animals history of recent travel: No sexually active: Yes Smoking Status: Never smoker alcohol intake: never substance use type: does not use well-balanced diet: daily or most days caffeine: No eating out: rarely or never during the past year weight has: decreased > 10 lbs what type of physical activity do you participate in: walking frequency: 1-2 times per week duration: 15-30 minutes/day femi/taoist: Buddhist seatbelt use: always do you feel safe at home: Yes additional social history: 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 Date Name GA/Weeks Outcome Route Bth Weight Infant Gen Labor Lgth Anesthesia Del Locatn Provider FOB Unknown 03/2019 SAB spontaneous Unknown 07/2021 chemical Unknown 08/03/2023 miscarriage 6 spontaneous 04/29/20 [place] 39 live - full term 6# Male none [facility] Hanane Tayo 07/10/22 Annabellephoebe Rouse 39 live - full term 7#11oz Female none [facility] [place] Delivery Date: 04/29/20 Last Updated by: Su MULLINS Delivery Date: 07/10/22 Last Updated by: Su MULLINS IOL Visit Details Expected Delivery Route/Plan Labor Preferences- CB/BF classes: [] labor support person: [] labor intervention preferences: [] pain management options preferred: [] cut cord/dad catch: [] : [] PP control planned: [] discussed possible routes of delivery and associated risks: [] special requests: [] Plans Covid status: [] Flu vaccine: [] Tdap vaccine: [] Rhogam: [] LARC form signed: [] Problem list reviewed and updated with the most current plan of care details and appropriate orders placed. Relevant counseling for the gestational age provided. Continue routine care and follow up unless otherwise noted in visit notes/problem list details OB Flowsheet Initial Weight: Not Recorded Date <del>?</del> EGA Weight BP Urine Prot <del>?</del> Glucose FHR FuHt Pres Dilation <del>?</del> Effaced St Visit Note 12/29/23 <del>?</del> 6w 1d 128 lb 116/72 <del>?</del> 85 <del>?</del> KW- repeat scan by [facility]. measuring 6.1 weeks today. rescan next week. 01/07/24 <del>?</del> 7w 3d 127 lb 117/70 Negative <del>?</del> Negative <del>?</del> JV- no heart tones today. edema around the gestational sac. formal scan to give us more info on possible molar tissue an then recommend D&C next week with Dr. Koo. ROS Constitutional Constitutional: Reports systems reviewed and no addt'l complaints, except as documented; Denies as per HPI, change in weight, fatigue, fever(s), malaise, weakness or other Eyes Eyes: Reports systems reviewed and no addt'l complaints, except as documented; Denies as per HPI, change in vision or other ENT HEENT: Reports systems reviewed and no addt'l complaints, except as documented Respiratory/Chest Respiratory/Chest: Reports systems reviewed and no addt'l complaints, except as documented Gastrointestinal Gastrointestinal: Reports systems reviewed and no addt'l complaints, except as documented and as per HPI Genitourinary Genitourinary: Reports as per HPI Musculoskeletal Musculoskeletal: Reports systems reviewed and no addt'l complaints, except as documented Neurologic Neurologic: Reports systems reviewed and no addt'l complaints, except as documented Psychiatric Psychiatric: Reports systems reviewed and no addt'l complaints, except as documented Endocrine Endocrinology: Reports systems reviewed and no addt'l complaints, except as documented Hematologic/Lymphatic Hematologic/Lymphatic: Reports systems reviewed and no addt'l complaints, except as documented Vital Signs Vital Signs Vital Signs: 01/11/24 12:40 01/11/24 12:40 Temperature 97.6 F L Temperature Source Temporal Pulse Rate 66 Respiratory Rate 16 Respiratory Pattern Normal Blood Pressure 110/76 Blood Pressure Mean 87 Blood Pressure Source Manual Blood Pressure Position Semi-Fowlers Blood Pressure Location Left Arm Pulse Ox 100 Oxygen Delivery Method Room Air Weight Weight: 127 lb 13.89 oz Body Mass Index (BMI) 22.6 Physical Exam Const alert, oriented x3 and no apparent distress HEENT normocephalic Head and Scalp: atraumatic Eyes EOMs intact bilaterally and conjunctivae normal Neck full ROM, no lymphadenopathy, supple and thyroid normal General: trachea midline Lymph Lymphatic: no lymphadenopathy noted Resp normal respiratory effort, no retractions, no use of accessory muscles and clear to auscultation bilaterally Cardio regular rhythm GI normal to inspection, nondistended, normoactive bowel sounds, soft to palpation, non-distended and no masses Inspection: Negative for abdominal distention Back/Spine no CVA tenderness Extremity normal to inspection Skin no rashes or lesions noted Neuro moves all extremities and deep tendon reflexes 2+ bilaterally Psych mental status grossly normal Labs Labs Labs: Blood Type A POSITIVE Antibody Screen NEGATIVE Hct 36.3 % (37-47) L Hgb 12.4 g/dL (12.0-15.0) Obstetrics Ultrasound Syphilis Total Ab Non-reactive Rubella IgG Antibody Reactive (Nonreactive) Hep Bs Antigen Non-Reactive (Nonreactive) Hepatitis C Antibody Non-Reactive (Nonreactive) Chlamydia DNA (RORY) Negative (Negative) N.gonorrhoeae DNA (RORY) Negative (Negative) HIV 1&2 Antibody Non-Reactive (Nonreactive) Glucose 1 Hr 50 gm 120 mg/dL (70-140) Rhogam given: No Miscellaneous Test Assessment & Plan (1) Supervision of high-risk : COMMENT: PRR (awaiting [facility]), GERMAN 08/08/24, PC Angel Luis Annabel[place], [place] (2) History of miscarriage, currently : (3) Missed : PLAN: Plan After discussing the patient's diagnosis and treatment plan options, patient wishes to proceed with surgical management. I have discussed with the patient the risks, benefits, and alternatives of the procedure which include but are not limited to risks of anesthesia, bleeding, infection, possible damage to bowel, bladder, or surrounding vasculature which could lead to additional surgery to evaluate any complications. Patient agrees to procedure and wishes to proceed. ACOG/uptodate references given for additional information regarding procedure.
--- NOTE | 2024-01-11 13:30 | POC_PTH ---
PATIENT: CECY GALLEGOS [place] [facility] [id number] AGE/SX: 28/F ROOM: RE01/11/[address]: Dr. Pam Koo MD : 1995 BED: DIS: 01/11/2024 SPEC #: [id number] RECD: 01/11/24 16:00 STATUS: MARCUS VILLALOBOS #: [id number] SHAHID: 01/11/24 13:[address]: Pam Koo DEPT: SURGICAL PATHOLOGY RECD BY: Radha Lui ENTERED: 01/12/24 10:10 SP TYPE: PROD CONC OTHR DR: Dr. Warren Melendez MD Tissues: Product of conception, NOS Procedures: Surgery Specimen Level IV HEADER OPERATION: D&C, suction PRE-OP DIAGNOSIS: Missed TISSUE SUBMITTED: Products of conception MICROSCOPIC DIAGNOSIS Endometrium, curettage: Chorionic villi, decidualized stroma and trophoblastic cells consistent with products of conception. AM: 01/13/2024 MICROSCOPIC DESCRIPTION Slides are reviewed. GROSS DESCRIPTION Received in fixative is one container labeled with the patient's name and designated Products of conception. The specimen consists of multiple fragments of pink soft tissue measuring in aggregate 7.0 x 6.0 x 1.5cm. No tissue is identified. Fire Department Marine Engineer tissue is submitted in two cassettes. ANTONY/ 01/12/2024 TC:5 CPT:[id number]
[2024-01-11] MEDS: Lidocaine 1% (20 ml mdv) 20 ML Vial (13:55)
--- NOTE | 2024-01-11 14:12 | PCM.POST.ANE ---
Anesthesia: Postop Eval I Current Vital Signs Temperature: 97.7 F Pulse Rate: 72 Blood Pressure: 103/64 Respiratory Rate: 14 Pulse Ox: 99 Oxygen Delivery Method: Room Air Assessment Airway patent: Yes Spontaneous unlabored respirations: Yes Mental status: Asleep nausea: No Vomiting: No Anesthesia Complication: No Fluid Hydration Crystalloid volume administer (ml): 800 Total IV fluid infused: 800 Progress Note Anesthesia document: Postop Eval 1 completed: Yes
--- NOTE | 2024-01-11 14:55 | DCINST_ITS ---
Discharge Instructions Diet Discharge Diet: No restrictions Activity Discharge Activity: Return to Normal Activity, May Shower and May Take a Tub Bath (after 1 week) May resume sexual activity in: 1-2 weeks Weight Bearing Status: Weight bearing as tolerated Lifting Restrictions: none Dressing / Incision Call your doctor if you observe: Fever of 101 or Higher, Using more than 1 pad per hour, Shortness of breath and Uncontrolled pain Follow Up Care Please Follow Up With: Pam Koo MD When: Call [phone] to schedule appointment. Test Results: Test results from this visit will be discussed in further detail at your follow- up appointment, if applicable. Discharge Plan Admission Attending Provider: Pam Koo Primary Care Provider: Warren Melendez Instructions Print Language: Portuguese Discharge Orders/Prescriptions Prescriptions: No Action PNV #[id number] 30 mg iron-10 mg iron-1 mg capsule 1 cap PO DAILY levothyroxine 50 mcg tablet 50 mcg PO DAILY Qty: 90 3RF aspirin [Adult Aspirin Regimen] 81 mg tablet,delayed release (DR/EC) 81 mg PO DAILY Referrals / Follow Up: Warren Melendez MD [Primary Care Provider] - Disposition Disposition (needs filled in before D/C Order can be placed): Home, Self Care
--- NOTE | 2024-01-11 14:55 | EX.PCM.OBRPT ---
Maternal Data Information GERMAN Calculator Estimated Delivery Date Method Current WG Current Estimate 08/22/24 Ultrasound #1 8w 0d Other Estimates 08/08/24 LMP (Certain) 10w 0d
--- NOTE | 2024-01-11 16:36 | PCM.POSTANE2 ---
Anesthesia Postop Eval I Sum Postop Eval Completion status Anesthesia document: Postop Eval 1 completed: Yes Anesthesia Postop Eval I Summary Anesthesia Postop Eval I Summary: Anesthesia Postop Eval I: Assessment Summary Airway patent Yes 01/11/24 14:16 [email or web address] Spontaneous unlabored Yes 01/11/24 14:16 [email or web address] respirations Mental status Asleep 01/11/24 14:16 [email or web address] nausea No 01/11/24 14:16 [email or web address] Vomiting No 01/11/24 14:16 [email or web address] Anesthesia Postop Eval I: Fluid Summary Crystalloid volume administer 800 01/11/24 14:16 [email or web address] (ml) Colloids volume administered ( ml) Blood Product volume administered (ml) Total IV fluid infused 800 01/11/24 14:16 [email or web address] Anesthesia Postop Eval I: Summary Notes Anesthesia Complication No 01/11/24 14:16 [email or web address] Anesthesia Complication Comment: Post-operative progress note Anesthesia: Postop Eval II Evaluation Mental status: Awake and Calm Pain Level: 1 nausea: No Vomiting: No Complications Anesthesia Complication: No
--- NOTE | 2024-01-12 13:41 | PCM.OPRPT ---
Problems Associated Problem List Diagnoses (1) Missed : Report of Operation Date of Procedure: 01/12/24 Pre-Operative Diagnosis: see problem list Post-Operative Diagnosis: same Surgery/Procedure Performed:: Suction dilation and curettage Description of Surgical Findings:: no FHT present, Nonviable 7-8 weeks Surgeon: Pma Koo firer marine: None Type of Anesthesia: Local MAC Special Medications: none Specimen's removed: POC Drains: none Estimated Blood Loss (mL): 50 Fluids Replaced: crystalloid Description of Procedure: Patient was taken to the operating room and placed under MAC local anesthesia. She was prepped and draped in the normal sterile fashion the dorsal lithotomy position. Bladder was drained of clear urine and anterior lip of the cervix was grasped and the uterus sounded to 8cm. Cervix was progressively dilated to allow passage of a 8mm suction curette. Progressive passes were made removing the retained products of conception without complication. Sharp curettage confirmed complete removal of the retained products. All instruments were removed from the vagina and excellent hemostasis was noted and the patient was taken to recovery in stable condition. Grafts/Implants Used: none Procedure Start Time: 14:00 Procedure Stop Time: 14:20 Complications none Admit VTE Documentation VTE Present on Admission: No VTE Mechan Device Prophylaxis: SCD's Procedures Urinary/Genital [id number]: [id number] Trmt of incomplete Ab, any TM
== END 2024-01-11 15:53 | disposition home or self-care (01) ==
LOC: SDC 12:00 → AC 12:01
PROVIDERS: PCP Family Medicine; Referring Provider Obstetrics & Gynecology; Visit Provider Obstetrics & Gynecology
PROC: (CPT 59820; principal; 2024-01-11 13:15)
DX: O02.1 Missed abortion (principal); E06.3 Autoimmune thyroiditis; Z79.82 Long term (current) use of aspirin; Z79.899 Other long term (current) drug therapy
CPT/HCPCS: 59820; 01965; 86850; 86900; 86901; 88305; J7120; J2405

== ENCOUNTER → 2024-05-04 | Outpatient (CLI) | payer OTHER, SELFPAY ==
[2024-05-04 09:21] LABS: Absolute Lymphocyte Count 1.49 X10^3/uL (0.83-4.51); Absolute Neutrophil Count 2.6 X10^3/uL (2.0-7.7); Basophil# 0.03 X10^3/uL; Basophil% 0.6 % (0-1); Eosinophils% 4.2 % (0-5); Hematocrit 37.2 % (37-47); Hemoglobin 12.8 g/dL (12.0-15.0); Lymphocyte # 1.49 X10^3/ul (0.83-4.51); Lymphocyte % 31.4 % (19-41); Mean Corp Hgb Conc 34.4 g/dL (32-36); Mean Corpuscular Hgb 30.3 pg (27.0-32.0); Mean Corpuscular Volume 87.9 fL (81-99); Mean Platelet Vol. 9.2 fl (6.2-12.0); Monocyte# 0.41 X10^3/uL; Monocyte% 8.6 % (0-10); NRBC Flagged by Analyzer 0 % (0-5); Platelet Count 260 K/mm3 (150-450); RBC Distribution Width CV 11.9 % (11.6-14.6); Red Blood Count 4.23 M/mm3 (4.2-5.4); White Blood Count 4.7 K/mm3 (4.4-11.0)
[2024-05-04 09:39] LABS: Hemoglobin A1c 5.1 % (3.8-5.6)
[2024-05-04 13:37] LABS: ALB/GLOB Ratio 1.2 RATIO (0.9-2.4); AST(SGOT) 20 U/L (15-37); Alanine Aminotransfer ALT/SGPT 26 U/L (13-56); Albumin, Serum 3.9 g/dL (3.2-5.0); Alkaline Phosphatase 50 U/L (45-117); Anion Gap 6 (5-15); BUN 8 mg/dL (7-18); BUN/Creat Ratio 13.9 RATIO (10-20); Chloride 108 mmol/L (98-107); Cholesterol 156 mg/dL (200); Creatinine, Serum 0.58 mg/dL (0.55-1.02); EST Glomerular Filtration Rate 130 mL/min (>60); Est Glom Filt Rate - Afr Amer 157 mL/min (>60); Globulin 3.3 g/dL (2.2-4.2); Glucose 74 mg/dL (74-106); High Density Lipoprotein 52 mg/dL; Potassium 3.6 mmol/L (3.5-5.1); Protein, Total 7.2 g/dL (6.4-8.2); Sodium Level 140 mmol/L (136-145); Triglycerides 76 mg/dL; Very Low Density Lipoprotein 15 mg/dL (5-40)
[2024-05-04 14:52] LABS: T4 Free Direct 0.97 ng/dL (0.76-1.46)
[2024-05-07 06:10] LABS: Anti-Cardiolipin Ab, IgG, Qn < 9 GPL U/mL (0-14); Anti-Cardiolipin Ab, IgM, Qn < 9 MPL U/mL (0-12); Beta-2-Glycoprotein I IgA <9 (0-25); Beta-2-Glycoprotein I IgG <9 (0-20); Beta-2-Glycoprotein I IgM <9 (0-32); Dilute Prothrombin Time (dPT) 37.5 sec (0.0-47.6); Dilute Russell Viper Venom 33.4 sec (0.0-47.0); Interpretation Comment: (.); PTT-LA 35.7 sec (0.0-43.5); Thrombin Time 19.6 sec (0.0-23.0); dPT Confirm Ratio 0.97 Ratio (0.00-1.34)
== END | disposition home or self-care (01) ==
LOC: VSLAB 08:55
PROVIDERS: Internal Medicine Endocrinology, Diabetes & Metabolism; Obstetrics & Gynecology; PCP Family Medicine; Visit Provider Family Medicine
DX: Z13.228 Encounter for screening for other metabolic disorders (principal); Z13.6 Encounter for screening for cardiovascular disorders; N96 Recurrent pregnancy loss; E03.8 Other specified hypothyroidism; E06.3 Autoimmune thyroiditis
CPT/HCPCS: 36415; 80053; 80061; 83036; 84439; 84443; 85025; 86146; 86147

== ENCOUNTER → 2024-05-23 | Outpatient (CLI) | payer OTHER, SELFPAY ==
[2024-05-23 09:58] LABS: hCG Titer Quant., Serum 6957 mIU/mL (1-3)
== END | disposition home or self-care (01) ==
LOC: LAB 09:00
PROVIDERS: PCP Family Medicine; Referring Provider Registered Nurse; Visit Provider Registered Nurse
DX: N96 Recurrent pregnancy loss (principal)
CPT/HCPCS: 36415; 84702

== ENCOUNTER → 2024-05-25 | Outpatient (CLI) | payer OTHER, SELFPAY ==
[2024-05-25 12:52] LABS: hCG Titer Quant., Serum 11902 mIU/mL (1-3)
== END | disposition home or self-care (01) ==
LOC: LAB 10:57
PROVIDERS: PCP Family Medicine; Referring Provider Registered Nurse; Visit Provider Registered Nurse
DX: N96 Recurrent pregnancy loss (principal)
CPT/HCPCS: 36415; 84702

== ENCOUNTER → 2024-06-17 | Outpatient (CLI) | payer BC, SELFPAY ==
[2024-06-17 10:32] LABS: Absolute Lymphocyte Count 1.73 X10^3/uL (0.83-4.51); Absolute Neutrophil Count 4.8 X10^3/uL (2.0-7.7); Basophil# 0.04 X10^3/uL; Basophil% 0.6 % (0-1); Eosinophil# 0.09 X10^3/uL; Eosinophils% 1.2 % (0-5); Hematocrit 37.2 % (37-47); Hemoglobin 13.1 g/dL (12.0-15.0); Lymphocyte # 1.73 X10^3/ul (0.83-4.51); Mean Corp Hgb Conc 35.2 g/dL (32-36); Mean Corpuscular Hgb 30.3 pg (27.0-32.0); Mean Corpuscular Volume 86.1 fL (81-99); Mean Platelet Vol. 9.2 fl (6.2-12.0); Monocyte# 0.55 X10^3/uL; Monocyte% 7.6 % (0-10); NRBC Flagged by Analyzer 0 % (0-5); Neutrophil # 4.78 X10^3/uL (2.7-7.7); Neutrophil % 66.3 % (47-70); Platelet Count 308 K/mm3 (150-450); RBC Distribution Width CV 11.8 % (11.6-14.6); Red Blood Count 4.32 M/mm3 (4.2-5.4); White Blood Count 7.2 K/mm3 (4.4-11.0)
[2024-06-17 11:07] LABS: T4 Free Direct 1.12 ng/dL (0.76-1.46)
[2024-06-17 15:02] LABS: HIV - WCH Non-Reactive (Nonreactive); Hepatitis B Surface Antigen Non-Reactive (Nonreactive); Hepatitis C Antibody Non-Reactive (Nonreactive); Rubella IgG Reactive (Nonreactive); Syphilis Antibodies Non-reactive
[2024-06-20 15:07] LABS: Thyroglobulin Antibody < 1.0 IU/mL (0.0-0.9); Thyroid Peroxidase AB 197 IU/mL (0-34)
[2024-06-20 22:06] LABS: Chlamydia By Nucleic Acid AMP Negative (Negative); Gonococcus By Nucleic Acid AMP Negative (Negative)
== END | disposition home or self-care (01) ==
LOC: BWCLAB 09:29
PROVIDERS: PCP Family Medicine; Referring Provider Registered Nurse; Visit Provider Registered Nurse
DX: O99.284 Endocrine, nutritional and metabolic diseases complicating childbirth (principal); E03.8 Other specified hypothyroidism; E06.3 Autoimmune thyroiditis; Z3A.00 Weeks of gestation of pregnancy not specified
CPT/HCPCS: 36415; 84439; 84443; 85025; 86376; 86703; 86762; 86780; 86800; 86803; 86850; 86900; 86901; 87086; 87340; 87491; 87591

== ENCOUNTER → 2024-08-17 | Outpatient (CLI) | payer BC, SELFPAY ==
[2024-08-17 17:56] LABS: T4 Free Direct 0.94 ng/dL (0.76-1.46); Thyroid Stim Hormone (TSH) 0.806 uIU/mL (0.358-3.740)
[2024-08-19 04:07] LABS: Thyroid Peroxidase AB 128 IU/mL (0-34)
== END | disposition home or self-care (01) ==
LOC: VSLAB 15:41
PROVIDERS: PCP Family Medicine; Visit Provider Nurse Practitioner Women's Health
DX: E03.8 Other specified hypothyroidism (principal); E06.3 Autoimmune thyroiditis
CPT/HCPCS: 36415; 84439; 84443; 86376

== ENCOUNTER → 2024-09-02 | Outpatient (CLI) | payer SELFPAY ==
--- NOTE | 2024-09-02 12:32 | US_ITS ---
PROCEDURE: OB ANATOMY W/ TRANSVAGINAL REASON FOR EXAM: well-being and anatomy. TECHNIQUE: Transvaginal imaging was performed for assessment of the cervical length. COMPARISON: None. FINDINGS: Number: 1 Position: Breech Placental Position: Anterior and not low-lying. Placental Abnormalities: None. DIMENSIONS: Biparietal Diameter: 4.63 cm: 20 weeks and 0 days: 50 percentile./ Head Circumference: 5.9 cm: 20 weeks and 1 day: 68 percentile/ Abdominal Circumference: 15.51 cm: 20 weeks and 5 days: 67.4 percentile/ Femur Length: 3.14 cm: 19 weeks and 5 days: 33 percentile/ ESTIMATED WEIGHT: 342 g plus/-51 g ESTIMATED WEIGHT PERCENTILE (24+ weeks): 60 percentile ESTIMATED GESTATIONAL AGE: Baseline: 20 weeks 0 days By Ultrasound: 19 weeks 6 days ESTIMATED DATE OF DELIVERY: Baseline: January 20, 2025 By Ultrasound: January 21, 2025 BIOPHYSICAL ASSESSMENT: Amniotic Fluid Volume: Subjectively normal. Amniotic Fluid Index: Within normal limits. Cardiac Motion: 146 beats per minute (average) Trunk and Limb Motion: Present. MATERNAL ANATOMY: Adnexa: Neither maternal ovary is successfully identified. Cervical Length (if measured): ANATOMY: Spine: Unremarkable. Cranium: Unremarkable. Cerebellum: Unremarkable. Cisterna Magna: Unremarkable. Cavum Septum Pellucidi: Present. Lateral Ventricles: Unremarkable. Choroid Plexus: There is a 8 mm x 4 mm choroid plexus cyst. Midline Falx: Present. Nuchal Fold: Upper Lip: Grossly intact. Heart: Normal four-chamber view. Ventricular Outflow Tracts: Unremarkable. Stomach: Unremarkable. Kidneys: Unremarkable. Bladder: Midline. Umbilical Cord: Three vessel cord. Normal and placental insertions. Extremities: Unremarkable. US/OB Anatomy w/ Transvaginal IMPRESSION: Single live intrauterine gestation with a mean gestational age of 19 weeks and 6 days. 8 mm x 4 mm choroid plexus cyst. Reading Location: [facility]
== END | disposition home or self-care (01) ==
PROVIDERS: PCP Family Medicine; Referring Provider Obstetrics & Gynecology; Visit Provider Obstetrics & Gynecology
DX: O32.1XX0 Maternal care for breech presentation, not applicable or unspecified (principal); Z3A.19 19 weeks gestation of pregnancy; O99.352 Diseases of the nervous system complicating pregnancy, second trimester; G93.0 Cerebral cysts
CPT/HCPCS: 76805; 76817

== ENCOUNTER → 2024-09-05 | Outpatient (CLI) | payer BC, SELFPAY | END | disposition home or self-care (01) | LOC: BWCLAB 11:20 | PROVIDERS: PCP Family Medicine; Referring Provider Advanced Practice Midwife; Visit Provider Advanced Practice Midwife | DX: Z34.82 Encounter for supervision of other normal pregnancy, second trimester (principal) | CPT/HCPCS: 36415 ==

== ENCOUNTER → 2024-10-26 | Outpatient (CLI) | payer BC, SELFPAY ==
[2024-10-26 11:54] LABS: Absolute Lymphocyte Count 1.16 X10^3/uL (0.83-4.51); Absolute Neutrophil Count 4.8 X10^3/uL (2.0-7.7); Basophil# 0.05 X10^3/uL; Basophil% 0.7 % (0-1); Eosinophil# 0.35 X10^3/uL; Eosinophils% 5.1 % (0-5); Hematocrit 33.7 % (37-47); Hemoglobin 11.7 g/dL (12.0-15.0); Lymphocyte # 1.16 X10^3/ul (0.83-4.51); Lymphocyte % 16.9 % (19-41); Mean Corp Hgb Conc 34.7 g/dL (32-36); Mean Corpuscular Hgb 31.2 pg (27.0-32.0); Mean Corpuscular Volume 89.9 fL (81-99); Mean Platelet Vol. 9.3 fl (6.2-12.0); Monocyte# 0.42 X10^3/uL; Monocyte% 6.1 % (0-10); NRBC Flagged by Analyzer 0 % (0-5); Platelet Count 232 K/mm3 (150-450); RBC Distribution Width CV 12.1 % (11.6-14.6); RBC Distribution Width SD 39.3 fl (35.1-43.9); Red Blood Count 3.75 M/mm3 (4.2-5.4); White Blood Count 6.9 K/mm3 (4.4-11.0)
[2024-10-26 12:45] LABS: Glucose Challenge Gest 1H 50g 152 mg/dL (70-140); HIV Nonreactive (Nonreactive); Syphilis Antibodies Nonreactive (Nonreactive)
== END | disposition home or self-care (01) ==
PROVIDERS: Obstetrics & Gynecology; Registered Nurse; PCP Family Medicine; Referring Provider Advanced Practice Midwife; Visit Provider Advanced Practice Midwife
DX: Z13.1 Encounter for screening for diabetes mellitus (principal); Z3A.24 24 weeks gestation of pregnancy; O09.92 Supervision of high risk pregnancy, unspecified, second trimester
CPT/HCPCS: 36415; 82950; 85025; 86703; 86780

== ENCOUNTER → 2024-10-28 | Outpatient (CLI) | payer BC, SELFPAY ==
[2024-10-28 08:20] LABS: Glucose GTT-Gestation. Fasting 98 mg/dL (<105)
[2024-10-28 10:54] LABS: Glucose GTT-Gestational 1 Hr 176 mg/dL (<190)
[2024-10-28 11:29] LABS: Glucose GTT-Gestational 2 Hr 182 mg/dL (<165)
[2024-10-28 13:41] LABS: Glucose GTT-Gestational 3 Hr 73 L (<145)
== END | disposition home or self-care (01) ==
LOC: LAB 07:55
PROVIDERS: PCP Family Medicine; Referring Provider Obstetrics & Gynecology; Visit Provider Obstetrics & Gynecology
DX: O99.810 Abnormal glucose complicating pregnancy (principal); Z3A.00 Weeks of gestation of pregnancy not specified
CPT/HCPCS: 36415; 82951; 82952

== ENCOUNTER → 2024-12-19 | Outpatient (CLI) | payer BC, SELFPAY | END | disposition home or self-care (01) | LOC: BWCLAB 14:45 | PROVIDERS: Internal Medicine Endocrinology, Diabetes & Metabolism; PCP Family Medicine; Referring Provider Obstetrics & Gynecology; Visit Provider Obstetrics & Gynecology | DX: E03.8 Other specified hypothyroidism (principal); E06.3 Autoimmune thyroiditis | CPT/HCPCS: 36415; 84439; 84443 ==

== ENCOUNTER → 2024-12-23 | Outpatient (CLI) | payer BC, SELFPAY ==
--- NOTE | 2024-12-23 08:37 | US_ITS ---
PROCEDURE: OB LIMITED WITH BIOMETRICS 12/23/2024 REASON FOR EXAM: 36 WK GROWTH SCAN TECHNIQUE: High resolution obstetric ultrasound performed using a 2D transducer. Standard views obtained, including biometry, anatomy survey, and Doppler studies. COMPARISON: Prior study dated September 02, 2024. FINDINGS Number: 1 Position: Vertex Placental Position: Anterior Placental Abnormalities: No evidence of previa. DIMENSIONS: Biparietal Diameter: 8.8 cm: 35 weeks and 4 days: 46 percentile/ Head Circumference: 32.28 cm: 36 weeks and 3 days: 30 percentile/ Abdominal Circumference: 32.82 cm: 36 weeks and 5 days: 79 percentile/ Femur Length: 6.85 cm: 35 weeks and 1 day: 24 percentile. ESTIMATED WEIGHT: 2884 g plus/-433 g ESTIMATED WEIGHT PERCENTILE (24+ weeks): 58 ESTIMATED GESTATIONAL AGE: Baseline: 36 weeks and 0 days By Ultrasound: 36 weeks and 1 day ESTIMATED DATE OF DELIVERY: Baseline: January 20, 2025 By Ultrasound: January 19, 2025 BIOPHYSICAL ASSESSMENT: Amniotic Fluid Volume: 3.5 cm Amniotic Fluid Index: 10.3 (8-24 cm normal range) Cardiac Motion: 147 beats per minute (average) Trunk and Limb Motion: Present. MATERNAL ANATOMY: Adnexa: Neither maternal ovary is successfully identified. Cervical Length (if measured): US/OB Limited With Biometrics IMPRESSION: Single live intrauterine gestation with a mean gestational age of 36 weeks and 1 day. Reading Location: [facility]
--- OUTSIDE RECORDS SUMMARY | 2024-12-23 09:54 | XMS RPT_ITS | CCD ---
Author Organization [facility] Care Team Providers Care Splitter Tender Name Role Phone Hoppes, Opal A. Unavailable LODHAWALA, VICTOR M B Unavailable Unavailable HOPPES, OPAL A Unavailable Unavailable LODHAWALA, VICTOR M B Unavailable Unavailable HOPPES, OPAL A Unavailable Unavailable LODHAWALA, VICTOR M B Unavailable Unavailable HOPPES, OPAL A Unavailable Unavailable HOPPES, OPAL A Unavailable Unavailable MYLA LARA T Unavailable Unavailable HOPPES, OPAL A Unavailable Unavailable LODHAWALA, VICTOR M B Unavailable Unavailable TABETDARRENE Unavailable Unavail able BAY, STEPHY H Unavailable Unavailable KOPADMA SOTO Unavailable Unavail able HOPPES, OPAL A. Unavailable Unavailable Lodhawala, Victor M B Unavailable Unavailable Hoppes, Opal A Unavailable Unavailable ADRIÁN FLYNN. Unavailable Unavailable Hoppes, Opal A Unavailable Unavailable LODHAWALA, VICTOR M BHUPENDRABHAI Unavailable U navailable Dr. Warren Melendez Primary Care Provider [phone] Dr. Warren Melendez Referring Provider [phone] Pam Koo Attending Provider [phone] Dr. Keshia Galvez Attending Provider Dr. Warren Melendez Primary Care Provider [phone] Dr. Warren Melendez Referring Provider Jarred UNIVERSITY REGISTRAR, UNIVERSITY REGISTRAR-C Caroline Attending Provider [phone] Dr. Pam Koo Attending Provider [phone] Dr. Warren Melendez Primary Care Provider Dr. Warren Melendez Referring Provider Dr. Pam Koo Attending Provider Jarred UNIVERSITY REGISTRAR, LISSA-C Caroline Attending Provider Dr. Keshia Galvez Attending Provider Dr. Warren Melendez Primary Care Provider Dr. Warren Melendez Referring Provider Dr. Pam Koo Attending Provider Guido, CNM Justina Attending Provider Guido, CNM Justina Admit Provider Guido, CNM Justina Other Provider Dr. Warren Melendez Primary Care Provider Guido, CNM Justina Admit Provider Guido, CNM Justina Attending Provider Guido, CNM Justina Other Provider Dr. Warren Melendez Referring Provider Dr. Moises Mazariegos Attending Provider Dr. Warren Melendez Referring Provider Hay, CARON Horn Attending Provider Dr. Warren Melendez Primary Care Provider WARREN MELENDEZ Primary Care Unavailable NANCY FORTNUE Attending Unavailable KESHIA PERERA Referring Unavailab le Farzaneh Meraz DO Primary Care Provider Justina Guido CNM Attending Provider Hay COVINGTONMAnthonyJustina Referring Provider Farzaneh Meraz DO Referring Provider Hanane MARIE, Dr. Orozco Attending Provider Jarred ALCARAZ-CCaroline Attending Provider Reshma Driscoll CNM Attending Provider [phone] Hanane MARIE, Dr. Orozco Referring Provider Americo CNM, Reshma Referring Provider [phone] Kt DO, Farzaneh Primary Care Provider Kt DO, Farzaneh Referring Provider Jarred UNIVERSITY REGISTRAR-C, Caroline Attending Provider [phone] Americo REARDON, Reshma Attending Provider [phone] Hanane MARIE, Dr. Orozco Attending Provider [phone] Hanane MARIE, Dr. Orozco Referring Provider [phone] Americo CNM, Reshma Referring Provider [phone] COVINGTONM, Justina Attending Provider [phone] Kt DO, Farzaneh Primary Care Provider Kt DO, Farzaneh Referring Provider [place] UNIVERSITY REGISTRAR-C, Caroline Attending Provider [phone] King CYNTHIA, Dr. De Leon Attending Provider Kt DO, Farzaneh Primary Care Provider Kt DO, Farzaneh Referring Provider Americo REARDON, Reshma Attending Provider [phone] Kt DO, Farzaneh Primary Care Provider Kt DO, Farzaneh Referring Provider Dr. Keshia Galvez DO Attending Provider Dr. Keshia Galvez DO Referring Provider Pam Koo Referring Unavailable Warren Melendez Primary Care Unavailable Pam Koo Attending Unavailable Reshma Driscoll Referring Unavailable Reshma Driscoll Attending Unavailable Melendez, Warren Primary Care Unavailable Kt VSC, Afrzaneh Primary Care Unavailable Reshma Driscoll Referring Unavailable Reshma Driscoll Attending Unavailable Kt VSC, Farzaneh Primary Care Unavailable Kt VSC, Farzaneh Referring Unavailable Reshma Driscoll Attending Unavailable Kt VSC, Farzaneh Primary Care Unavailable Kt VSC, Farzaneh Referring Unavailable Justina Guido Attending Unavailable Kt VS, Farzaneh Primary Care Unavailable Keshia Galvez Referring Unavailabl e Keshia Galvez Attending Unavailabl e Kt VS, Farzaneh Primary Care Unavailable Kt VSC, Farzaneh Attending Unavailable Kt VS, Farzaneh Primary Care Unavailable Justina Guido Attending Unavailable Guido, Justina Referring Unavailable Kt VS, Farzaneh Primary Care Unavailable Pam Koo Referring Unavailable VikasanthPam mcnulty Attending Unavailable Vikasanthony Pam Referring Unavailable Melendez, Warren Primary Care Unavailable Pam Koo Attending Unavailable Kt VS, Farzaneh Primary Care Unavailable Kt VSC, Farzaneh Referring Unavailable Jarred UNIVERSITY REGISTRAR, Caroline Attending Unavailable Reshma Driscoll Attending Unavailable Melendez, Warren Referring Unavailable Melendez, Warren Primary Care Unavailable Keshia Galvez Attending Unavailabl e Melendez, Warren Referring Unavailable Melendez, Warren Primary Care Unavailable Kt VSC, Farzaneh Referring Unavailable Kt VS, Farzaneh Primary Care Unavailable Pam Koo Attending Unavailable Kt VSC, Farzaneh Primary Care Unavailable Kt VSC, Farzaneh Referring Unavailable Moises Mazariegos Unavailable Kt VS, Farzaneh Primary Care Unavailable Justina Guido Referring Unavailable Justina Guido Attending Unavailable Kt VS, Farzaneh Primary Care Unavailable Jarred UNIVERSITY REGISTRARCaroline Attending Unavailable Kt VS, Farzaneh Primary Care Unavailable Reshma Driscoll Referring Unavailable Reshma Driscoll Attending Unavailable Kt VS, Farzaneh Primary Care Unavailable Pam Koo Referring Unavailable Pam Koo Attending Unavailable Keshia Galvez Attending Unavailabl e Melendez, Warren Primary Care Unavailable Melendez, Warren Referring Unavailable Kt VS, Farzaneh Primary Care Unavailable Kt VSC, Farzaneh Referring Unavailable [place] UNIVERSITY REGISTRARCaroline Attending Unavailable Pam Koo Referring Unavailable Melendez, Warren Primary Care Unavailable Pam Koo Attending Unavailable Kt VS, Farzaneh Primary Care Unavailable Justina Guido Attending Unavailable Guido, Justina Referring Unavailable Kt VS, Farzaneh Primary Care Unavailable Kt VS, Farzaneh Referring Unavailable Pam Koo Attending Unavailable Reshma Driscoll Referring Unavailable Reshma Driscoll Attending Unavailable Melendez, Warren Primary Care Unavailable Kt VS, Farzaneh Primary Care Unavailable Kt VS, Farzaneh Referring Unavailable Justina Guido Attending Unavailable Kt VS, Farzaneh Primary Care Unavailable Kt VS, Farzaneh Referring Unavailable Keshia Galvez Attending Unavailabl e Kt VS, Farzaneh Primary Care Unavailable Kt VS, Farzaneh Referring Unavailable JemimaonyPam Attending Unavailable Marcanthony, Pam Referring Unavailable Melendez, Warren Primary Care Unavailable JemimaonyPam Attending Unavailable Pam Koo Consulting Unavailable VikasanthonyPam Consulting Unavailable Melendez, Warren Primary Care Unavailable Marcanthony Pam Referring Unavailable Pam Koo Attending Unavailable Kt VS, Farzaneh Primary Care Unavailable Kt VS, Farzaneh Referring Unavailable Reshma Driscoll Attending Unavailable Kt VS, Farzaneh Primary Care Unavailable Kt VS, Farzaneh Referring Unavailable Justina Guido Attending Unavailable Kt VS, Farzaneh Primary Care Unavailable Kt VS, Farzaneh Referring Unavailable Pam Koo Attending Unavailable Kt VS, Farzaneh Referring Unavailable Kt [facility], Farzaneh Primary Care Unavailable Pam Koo Attending Unavailable Allergies Allergy Classification Reported Allergen(s) Allergy Type Date of Onset Reaction(s) Facility (20 sources) Banana Extract; Translations: [BANANA] Drug Allergy 9 [facility] (1 source) Latex; Translations: [LATEX] Propensity to adverse reactions to drug (disorder) 4 [facility] (1 source) OTHER; Translations: [OTHER] Propensity to adverse reactions to food (disorder) 0 [facility] (6 sources) natural latex rubber Allergy to substance 5 [facility] (1 source) Banana Extract Drug Allergy 5 [facility] (1 source) natural latex rubber Drug allergy (disorder) 5 [facility] Medications Current Medications Medication Drug Class(es) Dates Sig (Normalized) Sig (Original) aspirin 81 mg delayed release oral tablet (20 sources) Platelet Aggregation Inhibitor, Nonsteroidal Anti-inflammatory Drug Start: 12-22-2023 take 1 tablet by mouth once daily Aspirin (Adult Aspirin Regimen) 81 mg tablet,delayed release (DR/EC) Active 81 mg PO DAILY December 22, 2023 12:00am Start: 11-06-2021 End: 10-30-2022 take 1 tablet by mouth once daily Aspirin (Adult Aspirin Regimen) 81 mg tablet,delayed release (DR/EC) Discontinued 81 mg PO DAILY November 06, 2021 12:00am October 30, 2022 10:34am Start: 03-14-2020 End: 06-13-2020 take 1 tablet by mouth once daily Aspirin 81 MG tablet Discontinued 81 mg PO DAILY@0800 March 14, 2020 12:00am June 13, 2020 12:41pm Blood-Glucose Meter misc (4 sources) Start: 10-28-2024 Blood-Glucose Meter misc Active 0 .ROUTE .MEDSUPPLY October 28, 2024 12:00am As directed metFORMIN hydrochloride 500 mg oral tablet (3 sources) Biguanide Start: 11-04-2024 take 1 tablet by mouth once daily Metformin 500 mg tablet Active 500 mg PO daily November 04, 2024 12:00am Pnv #28-[id number]-[id number] Acid-Omega3 30 mg iron-10 mg iron-1 mg capsule (6 sources) Start: 04-07-2019 Pnv #30-Iron-F olic Acid-Omega3 30 mg iron-10 mg iron-1 mg capsule Active 1 NMA PO DAILY April 07, 2019 12:00am Start: 04-07-2019 Pnv #30-Iron-F olic Acid-Omega3 30 mg iron-10 mg iron-1 mg capsule Active 1 NMA PO DAILY April 06, 2019 11:00pm vitamin#30 30 mg iron-10 mg iron-folic acid 1 mg-omg3 capsule (15 sources) Start: 04-07-2019 take 1 capsule by mouth once daily vitamin#30 30 mg iron-10 mg iron-folic acid 1 mg-omg3 capsule Active 1 CAP PO DAILY April 07, 2019 2:56pm Start: 04-07-2019 take 1 capsule by [facility] once daily vitamin#30 30 mg iron-10 mg iron-folic acid 1 mg-omg3 capsule Active 1 CAP PO DAILY April 06, 2019 11:00pm Start: 04-07-2019 take 1 capsule by mo [facility] once daily vitamin#30 30 mg iron-10 mg iron-folic acid 1 mg-omg3 capsule Active 1 CAP PO DAILY April 07, 2019 12:00am Completed/Discontinued Medications Medication Drug Class(es) Dates Sig (Normalized) Sig (Original) calcium carbonate 625 mg / cholecalciferol 125 unt oral tablet (20 sources) Vitamin D Start: 03-14-2020 End: 06-17-2021 Calcium Carbonate-Vitamin D3 1 EACH tablet Discontinued 1 NMA PO DAILY March 14, 2020 12:00am June 17, 2021 11:52am Start: 03-14-2020 End: 06-17-2021 Calcium Carbonate-Vitamin D3 Discontinued 1 EACH PO DAILY March 14, 2020 12:00am June 17, 2021 11:52am levothyroxine sodium 0.05 mg oral tablet (20 sources) l-Thyroxine Start: 01-29-2023 End: 12-06-2024 take 1 tablet by mouth once daily Levothyroxine 50 mcg tablet Discontinued 50 ug PO DAILY September 08, 2024 10:09am December 06, 2024 3:28pm Start: 08-12-2021 End: 11-02-2023 take 1 tablet by mouth once daily Levothyroxine (Synthroid) 25 mcg tablet Discontinued 25 ug PO DAILY April 14, 2022 11:09am July 09, 2022 8:01pm lidocaine 0.04 mg/mg topical gel (20 sources) Antiarrhythmic, Amide Local Anesthetic Start: 04-07-2019 End: 09-16-2019 Lidocaine 4 % gel Discontinued 1 NMA TOPICAL 2 to 4 times per day as needed for pain April 07, 2019 12:00am September 16, 2019 12:39pm meloxicam 7.5 mg oral tablet (20 sources) Nonsteroidal Anti-inflammatory Drug Start: 05-02-2018 End: 10-26-2018 take 1 tablet by mouth once daily Meloxicam 7.5 mg tablet Discontinued 7.5 mg PO DAILY May 02, 2018 12:00am October 26, 2018 3:14pm Start: 02-11-2017 meloxicam (MOB IC) 15 MG tablet progesterone 200 mg oral capsule (6 sources) Progesterone Start: 05-17-2024 End: 10-12-2024 Progesterone Micronized (Prometrium) 200 mg capsule Discontinued 200 mg VAGINAL AT BEDTIME May 17, 2024 1:00am October 12, 2024 11:00am continue through 14 weeks promethazine hydrochloride 12.5 mg oral tablet (19 sources) Phenothiazine Start: 12-05-2021 End: 04-21-2022 take 1 tablet by mouth every six hours as needed for nausea and vomiting Promethazine 12.5 mg tablet Discontinued 12.5 mg PO EVERY 6 HOURS as needed for nausea and vomiting December 05, 2021 12:00am April 21, 2022 10:46am triamcinolone acetonide 1 mg/ml topical cream (20 sources) Corticosteroid Start: 05-02-2018 End: 10-26-2018 Triamcinolone Acetonide 0.1 % cream Discontinued 1 NMA TOPICAL TWICE A DAY May 02, 2018 12:00am October 26, 2018 3:14pm valACYclovir 1000 mg oral tablet (20 sources) Herpesvirus Nucleoside Analog DNA Polymerase Inhibitor, Herpes Simplex Virus Nucleoside Analog DNA Polymerase Inhibitor, Herpes Zoster Virus Nucleoside Analog DNA Polymerase Inhibitor Start: 04-07-2019 End: 04-18-2019 Valacyclovir (Valtrex) 1 gram tablet Discontinued 1000 mg PO TWICE A DAY 01 05April 07, 2019 12:00am April 16, 2019 12:00am April 18, 2019 12:08am initial outbreak Problems Active Problems Problem Classification Problem Date Documented Date Episodic/Chronic Cancer of cervix (20 sources) Atypical squamous cells of undetermined significance on cervical Papanicolaou smear; Translations: [Atypical squamous cells of undetermined significance on cytologic smear of cervix (ASC-US)] Onset: 12-20-19 Episodic Comment on above: repeat pap 3 yrs, 2023 Neg pap/Neg HPV Contraceptive and procreative management (10 sources) Patient encounter status; Translations: [Encounter for other general counseling and advice on procreation] 09-10-2023 Episodic Diabetes or abnormal glucose tolerance complicating ; childbirth; or the puerperium (20 sources) Abnormal glucose level; Translations: [Abnormal glucose complicating ] Onset: 11-03-1910-26-2024 Episodic Comment on above: 3 hour GTT test 4 times daily diet controlled, [facility] US at 36 weeks. delivery by 40 Hemorrhage during ; abruptio placenta; placenta previa (20 sources) Bleeding from female genital tract during ; Translations: [Antepartum hemorrhage, unspecified, unspecified trimester] Episodic Comment on above: 09/21/19- small 4mm s ubchorionic bleed. viable IUP seen Immunizations and screening for infectious disease (6 sources) Autoantibody titer positive; Translations: [Other specified abnormal immunological findings in serum] 06-29-2024 Episodic Menstrual disorders (20 sources) Irregular periods; Translations: [Amenorrhea] 12-05-2021 Chronic Other complications of (20 sources) Uterine size for dates discrepancy; Translations: [Uterine size-date discrepancy, unspecified trimester] 04-20-2020 Episodic Comment on above: recommend growth [place] Other complications of (20 sources) High risk ; Translations: [Supervision of high risk , unspecified, unspecified trimester] 07-16-2022 Episodic Comment on above: PRR , GERMAN 5, [place], [place] PRR GERMAN 07/13/22 girl [place] PRR (awaiting GCC), GERMAN 08/08/24, [place], [place], [place] Other complications of (13 sources) Nausea and vomiting; Translations: [Vomiting of , unspecified] 02-24-2022 Episodic Other complications of (19 sources) Group B Streptococcus carrier; Translations: [Streptococcus B carrier state complicating ] 07-16-2022 Episodic Comment on above: PCN in Labor Other complications of (19 sources) Thyroid disease in mother complicating , childbirth AND/OR puerperium; Translations: [Endocrine, nutritional and metabolic diseases complicating , unspecified trimester] 08-20-2022 Episodic Comment on above: endo referralcont on levo 25mcg, refill sent today Other complications of (16 sources) Vomiting of , unspecified; Translations: [Unspecified vomiting of , unspecified as to episode of care or not applicable] Episodic Comment on above: phenergan ordered Other complications of (20 sources) Endocrine, nutritional and metabolic diseases complicating , unspecified trimester; Translations: [Thyroid dysfunction of mother, unspecified as to episode of care or not applicable] Episodic Other complications of (20 sources) Streptococcus B carrier state complicating ; Translations: [Supervision of other high-risk ] Episodic Other complications of (6 sources) Missed miscarriage; Translations: [Missed ] 06-03-2024 Episodic Other complications of (12 sources) H/O: miscarriage; Translations: [Supervision of with other poor reproductive or obstetric history, unspecified trimester] 01-12-2024 Episodic Other complications of (1 source) Supervision of high risk , unspecified, second trimester; Translations: [Supervision of high risk , unspecified, second trimester] Onset: 12-20-19 Episodic Other female genital disorders (20 sources) Recurrent loss; 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 no regional anesthesia. 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] Onset: 12-20-19 Chronic Polyhydramnios and other problems of amniotic cavity (6 sources) Spontaneous rupture of membranes 07-16-2022 Episodic Comment on above: 1730, clear fluid Residual codes; unclassified (20 sources) Hereditary disorder of endocrine system; Translations: [Genetic susceptibility to other disease] 06-03-2024 Episodic Comment on above: 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, 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 Residual codes; unclassified (1 source) 35 weeks gestation of ; Translations: [35 weeks gestation of ] Onset: 12-20-19 Episodic Residual codes; unclassified (1 source) 32 weeks gestation of ; Translations: [32 weeks gestation of ] Onset: 11-26-19 25 Episodic Residual codes; unclassified (1 source) 25 weeks gestation of ; Translations: [25 weeks gestation of ] Onset: 10-13-19 25 Episodic Residual codes; unclassified (1 source) 24 weeks gestation of ; Translations: [24 weeks gestation of ] Onset: 10-01-19 25 Episodic Thyroid disorders (20 sources) Thyroiditis; Translations: [Thyroiditis, unspecified] Onset: 01-08-20 24 10-30-2022 Chronic Comment on above: thyroid antibodies, tsh/free t3/4 ordered nob and q trimester.Ordered today:Dr Mazariegos wanted in 8 wk Unclassified (15 sources) Abnormal coagulation profile; Translations: [Cancer cervix screening status] Onset: 01-20-20 17 09-24-2023 Episodic Comment on above: pap obtained today. Unclassified (1 source) Unknown / UNK(Unknown) Onset: 04-23-20 17 Unclassified (20 sources) Marginal insertion of umbilical cord; Translations: [Marginal insertion of umbilical cord] Past or Other Problems Problem Classification Problem Date Documented Date Episodic/Chronic Malposition; malpresentation (20 sources) Breech presentation; Translations: [Maternal care for breech presentation, not applicable or unspecified] Onset: 5 04-20-2020 Episodic Medical examination/evaluati on (2 sources) Encounter for general adult medical examination without abnormal findings; Translations: [Encounter for general adult medical examination without abnormal findings] Onset: 7 Episodic Other complications of (20 sources) Supervision of high risk , unspecified, unspecified trimester; Translations: [Supervision of unspecified high-risk ] Onset: 4 Episodic Other complications of (2 sources) Supervision of with other poor reproductive or obstetric history, unspecified trimester; Translations: [Supervision of with other poor reproductive or obstetric history, unspecified trimester] Onset: 4 Episodic Other complications of (2 sources) Missed ; Translations: [Missed ] Onset: 4 Episodic Other connective tissue disease (1 source) Hypermobility syndrome; 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] Onset: 7 Episodic Other and delivery including normal (20 sources) ; Translations: [Encounter for supervision of normal , unspecified, unspecified trimester] Onset: 4 Episodic Comment on above: A/P: normal 6 weeks postpartumadjusting to life with . has support, moods stable. PP depression s/sx reviewedno further restrictions on activities. may resume sexual intercourse. reviewed risk and benefits of contraception and has chosen condoms for control management.RTO for annual exam or as needed for [facility] care. SROM/IAL at term. un medicated. girl:Annabelle Rouse. LC HCG x2, TVUS NIPT low risk anatomy nl, genetic and carrier ntd screening declined. echo @ 24 wks nl, 05/26 nl growth EFW 2015 gms +/- 302gm 38th%. 06/30 nl growth EFW 2957gms +/- 444gms 49%. declined genetic & c arrier testing NIPT low risk, juan er and ntd screen declined. anatomy reviewed. Residual codes; unclassified (1 source) 22 weeks gestation of ; Translations: [22 weeks gestation of ] Onset: 5 Episodic Residual codes; unclassified (1 source) 13 weeks gestation of ; Translations: [13 weeks gestation of ] Onset: 5 Episodic Residual codes; unclassified (1 source) 10 weeks gestation of ; Translations: [10 weeks gestation of ] Onset: 4 Episodic Residual codes; unclassified (1 source) Less than 8 weeks gestation of ; Translations: [Less than 8 weeks gestation of ] Onset: 4 Episodic Residual codes; unclassified (1 source) 8 weeks gestation of ; Translations: [8 weeks gestation of ] Onset: 4 Episodic Spontaneous (11 sources) Miscarriage; Translations: [Complete or unspecified spontaneous without complication] Onset: 4 08-03-2023 Episodic Comment on above: watch HCG level unti l negative level. Unclassified (1 source) Menstrual Problem Onset: 7 Unclassified (8 sources) Spontaneous rupture of membranes; Translations: [Spontaneous rupture of amniotic membranes] Results Test Name Value Interpretation Reference Range Facility Bakery Team Member Office Visit Reporton 12-19-2024 Bakery Team Member Office Visit Report [facility] [address] [place] [address], [address] [place] [address] OFFICE VISIT Date of Service: 12/19/24 MR#: [id number] Acct: [id number] Name: CECY GALLEGOS Rep #: [id number] : 1995 Provider: Dr. Keshia Wells, DO Age/Sex: 29/F [place] [facility] [place]: Signed Intake Vital Signs 11/16/24 09:19 12/09/24 10:07 12/19/24 14:11 12/19/24 14:13 Height 5 ft 3 in 5 ft 3 in 5 ft 3 in 5 ft 3 in Weight: 155 lb 6 oz BMI 27.5 BP 114/71 Intake Visit Reasons: 36 wk ob Pattern Painter Required: No Is patient in pain?: No Allergies banana Allergy (Mild, Verified 12/19/24 14:11) RASH Latex, Natural Rubber Allergy (Mild, Verified 12/19/24 14:11) Rash Medications ???Medication ???Instructions ???Recorded ???Confirmed ???Type vitamin#30 30 mg iron-10 1 cap PO DAILY 04/07/19 12/19/24 History mg iron-folic acid 1 mg-omg3 capsule aspirin 81 mg tablet,delayed 81 mg PO DAILY 12/22/23 12/19/24 H istory release (Adult Aspirin Regimen) blood sugar diagnostic (Blood #120 ea 10/28/24 12/19/24 Rx Glucose Test strips) blood-glucose meter #1 ea 10/28/24 12/19/24 Rx lancets 30 gauge (Droplet Lancets) #200 ea 10/28/24 12/19/24 Rx metformin 500 mg tablet 500 mg PO QDAY #30 tabs 11/04/24 0 12/19/24 Rx levothyroxine 50 mcg tablet 50 mcg PO DAILY #90 tabs 12/06/24 12/19/24 Rx Last Menstrual Period: 04/15/24 Zika: Zika virus screening: Negative : No PFSH PFSH Medical History History of miscarriage History of miscarriage, currently Early stage of Supervision of high-risk Non-smoker 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 SAB (spontaneous ) Thyroiditis (spontaneous vaginal delivery) Spontaneous rupture of amniotic membranes Thyroid disorder GBS (group B Streptococcus carrier), +RV culture, currently Thyroid disease affecting Supervision of high-risk Amenorrhea ASCUS of cervix with negative high risk HPV 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 Surgical History S/P dilation and curettage ( 01/11/24) H/O wisdom tooth extraction Family History Father , BLOOD CLOT BLOOD CLOT Social History adopted: No household members: family housing: house number of children: 2 current occupational status: employed 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[employer] pets and animals: Yes (Outside dog and chickens) pets and animals: dog(s) and farm animals history of recent travel: No sexually active: Yes Smoking Status: Never smoker alcohol intake: never substance use type: does not use diet: gluten free well-balanced diet: daily or most days caffeine: No eating out: 1-3 times/week during the past year weight has: remained stable what type of physical activity do you participate in: walking and yoga frequency: 1-2 times per week duration: 15-30 minutes/day femi/zoroastrianism: Congregational seatbelt use: always do you feel safe at home: Yes 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 Date Name GA/Weeks Outcome Route Bth Weight Infant Gen Labor Lgth Anesthesia Del Locatn Provider FOB Unknown 03/2019 SAB spontaneous Unknown 07/2021 chemical Unknown 08/03/2023 miscarriage 6 spontaneous 04/29/20 River 39 live - full term 6# Male none [facility] Alexia hayden Tayo 07/10/22 Annabelle Rouse 39 live - full term 7#11oz Female none [facility] Hay Mascout[place] 01/11/24 spontaneous SM Delivery Date: 04/29/20 Last Updated by: Su Epi SROM Delivery Date: 07/10/22 Last Updated by: Su Chowdary SROM IOL Delivery Date: 01/11/24 Last Updated by: Keira Chen RN D C HPI 36 wk ob Details: CECY GALLEGOS is a 29 year old who presents for routine OB visit. OB Visit GERMAN Calculator Estimated Delivery Date Method Current WG Current Estimate 01/20/25 LMP (Certain) 35w 3d Expected Delivery Route/Plan Labor Preferences- CB/BF classes: [] labor support person: [] labor intervention preferences: [] pain management options preferred: [] cut cord/dad catch: [] : [] PP control planned: [] discussed possible routes of delivery and associated risks: [] special requests: (more content not included)... Normal [facility] T4 Free Directon 12-19-2024 T4 FREE DIRECT 0.80 ng/dL Normal 0.76-1.46 [facility] Comment on above: Performed By: #### L 509.4005, L509.8000, L3890.6005, L506.0400, BTS, L3890.6100, L100.0100, L3890.6300, L501.9520 #### [facility] Laboratory [address] [place], [place], [id number] Thyroid Stim Hormone (TSH)on 12-19-2024 TSH 1.400 uIU/mL Normal 0.300-4.200 [facility] Comment on above: Performed By: #### L 509.4005, L509.8000, L3890.6005, L506.0400, BTS, L3890.6100, L100.0100, L3890.6300, L501.9520 #### [facility] [address] [place], [place], [id number] Laboratory - Chemistry and C hemistry - challengeOrdered By: Justina Guido on 12-09-2024 Glucose Ql (U) Negative [facility] Laboratory - UrinalysisOrder ed By: Justina Guido on 12-09-2024 Protein Ql (U) Negative [facility] Bakery Team Member Office Visit Reporton 12-09-2024 Bakery Team Member Office Visit Report [facility] [address], [address] [place] [address] OFFICE VISIT Date of Service: 12/09/24 MR#: [id number] Acct: [id number] Name: CECY GALLEGOS Rep #: [id number] : 1995 Provider: CARON gomez Age/Sex: 29/F [place] [facility] Status: Signed Intake Vital Signs 06/29/24 10:20 11/25/24 10:04 12/09/24 10:07 12/09/24 10:07 Height 5 ft 3 in 5 ft 3 in 5 ft 3 in 5 ft 3 in Weight: 152 lb BMI 26.9 BP 113/70 Intake Visit Reasons: 34 WK OB Pattern Painter Required: No Is patient in pain?: No Allergies banana Allergy (Mild, Verified 12/09/24 10:07) RASH Latex, Natural Rubber Allergy (Mild, Verified 12/09/24 10:07) Rash Medications ???Medication ???Instructions ???Recorded ???Confirmed ???Type vitamin#30 30 mg iron-10 1 cap PO DAILY 04/07/19 12/09/24 History mg iron-folic acid 1 mg-omg3 capsule aspirin 81 mg tablet,delayed 81 mg PO DAILY 12/22/23 12/09/24 H istory release (Adult Aspirin Regimen) blood sugar diagnostic (Blood #120 ea 10/28/24 12/09/24 Rx Glucose Test strips) blood-glucose meter #1 ea 10/28/24 12/09/24 Rx lancets 30 gauge (Droplet Lancets) #200 ea 10/28/24 12/09/24 Rx metformin 500 mg tablet 500 mg PO QDAY #30 tabs 11/04/24 0 12/09/24 Rx levothyroxine 50 mcg tablet 50 mcg PO DAILY #90 tabs 12/06/24 12/09/24 Rx Last Menstrual Period: 04/15/24 Zika: Zika virus screening: Negative : No Have you fallen in the past year?: No PFSH PFSH Medical History History of miscarriage History of miscarriage, currently Early stage of Supervision of high-risk Non-smoker 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 SAB (spontaneous ) Thyroiditis (spontaneous vaginal delivery) Spontaneous rupture of amniotic membranes Thyroid disorder GBS (group B Streptococcus carrier), +RV culture, currently Thyroid disease affecting Supervision of high-risk Amenorrhea ASCUS of cervix with negative high risk HPV 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 Surgical History S/P dilation and curettage ( 01/11/24) H/O wisdom tooth extraction Family History Father , BLOOD CLOT BLOOD CLOT Social History adopted: No household members: family housing: house number of children: 2 current occupational status: employed 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[employer] pets and animals: Yes (Outside dog and chickens) pets and animals: dog(s) and farm animals history of recent travel: No sexually active: Yes Smoking Status: Never smoker alcohol intake: never substance use type: does not use diet: gluten free well-balanced diet: daily or most days caffeine: No eating out: 1-3 times/week during the past year weight has: remained stable what type of physical activity do you participate in: walking and yoga frequency: 1-2 times per week duration: 15-30 minutes/day femi/zoroastrianism: Congregational seatbelt use: always do you feel safe at home: Yes 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 Date Name GA/Weeks Outcome Route Bth Weight Gen Labor Lgth Anesthesia Del Locatn Provider FOB Unknown 03/2019 SAB spontaneous Unknown 07/2021 chemical Unknown 08/03/2023 miscarriage 6 spontaneous 04/29/20 River 39 live - full term 6# Male none [facility] Alexia hayden [place] 07/10/22 Annabelle Rouse 39 live - full term 7#11oz Female none [facility] Hay M[place] 01/11/24 spontaneous SM Delivery Date: 04/29/20 Last Updated by: Su MULLINS Delivery Date: 07/10/22 Last Updated by: Su MULLINS IOL Delivery Date: 01/11/24 Last Updated by: GELY Boykin C HPI 34 WK OB Details: CECY GALLEGOS is a 29 year old who presents for routine OB visit. OB Visit GERMAN Calculator Estimated Delivery Date Method Current WG Current Estimate 01/20/25 LMP (Certain) 34w 0d Expected Delivery Route/Plan Labor Preferences- CB/BF classes: [] labor support person: [] labor intervention preferences: [] pain management options preferred: [] cut cord/dad catch: [] : [] PP control planned: [] discussed possible routes of delivery and associated risks: [] special (more content not included)... Normal [facility] Laboratory - Chemistry and C hemistry - challengeOrdered By: Pam Koo on 11-25-2024 Glucose Ql (U) Negative [facility] Laboratory - UrinalysisOrder ed By: Pam Koo on 11-25-2024 Protein Ql (U) Trace [facility] Bakery Team Member Office Visit Reporton 11-25-2024 Bakery Team Member Office Visit Report [facility] [address], [address] [place] [address] OFFICE VISIT Date of Service: 11/25/24 MR#: [id number] Acct: [id number] Name: CECY GALLEGOS Rep #: [id number] : 1995 Provider: Dr. Pam hayden MD Age/Sex: 29/F [place] [facility] [place]: Signed Intake Vital Signs 06/29/24 10:20 10/12/24 10:59 11/16/24 09:19 11/25/24 10:04 Height 5 ft 3 in 5 ft 3 in 5 ft 3 in 5 ft 3 in Weight: 146 lb 6 oz BMI 25.9 BP 111/69 Intake Visit Reasons: 30 WK OB Pattern Painter Required: No Is patient in pain?: No Allergies banana Allergy (Mild, Verified 11/25/24 10:05) RASH Latex, Natural Rubber Allergy (Mild, Verified 11/25/24 10:05) Rash Medications ???Medication ???Instructions ???Recorded ???Confirmed ???Type vitamin#30 30 mg iron-10 1 cap PO DAILY 04/07/19 11/25/24 History mg iron-folic acid 1 mg-omg3 capsule aspirin 81 mg tablet,delayed 81 mg PO DAILY 12/22/23 11/25/24 H istory release (Adult Aspirin Regimen) levothyroxine 50 mcg tablet 50 mcg PO DAILY #90 tabs 09/08/24 11/25/24 Rx blood sugar diagnostic (Blood #120 ea 10/28/24 11/25/24 Rx Glucose Test strips) blood-glucose meter #1 ea 10/28/24 11/25/24 Rx lancets 30 gauge (Droplet Lancets) #200 ea 10/28/24 11/25/24 Rx metformin 500 mg tablet 500 mg PO QDAY #30 tabs 11/04/24 0 11/25/24 Rx Last Menstrual Period: 04/15/24 Zika: Zika virus screening: Negative : No PFSH PFSH Medical History History of miscarriage History of miscarriage, currently Early stage of Supervision of high-risk Non-smoker 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 SAB (spontaneous ) Thyroiditis (spontaneous vaginal delivery) Spontaneous rupture of amniotic membranes Thyroid disorder GBS (group B Streptococcus carrier), +RV culture, currently Thyroid disease affecting Supervision of high-risk Amenorrhea ASCUS of cervix with negative high risk HPV 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 Surgical History S/P dilation and curettage ( 01/11/24) H/O wisdom tooth extraction Family History Father , BLOOD CLOT BLOOD CLOT Social History adopted: No household members: family housing: house number of children: 2 current occupational status: employed 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[employer] pets and animals: Yes (Outside dog and chickens) pets and animals: dog(s) and farm animals history of recent travel: No sexually active: Yes Smoking Status: Never smoker alcohol intake: never substance use type: does not use diet: gluten free well-balanced diet: daily or most days caffeine: No eating out: 1-3 times/week during the past year weight has: remained stable what type of physical activity do you participate in: walking and yoga frequency: 1-2 times per week duration: 15-30 minutes/day femi/zoroastrianism: Congregational seatbelt use: always do you feel safe at home: Yes 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 Date Name GA/Weeks Outcome Route Bth Weight Gen Labor Lgth Anesthesia Del Locatn Provider FOB Unknown 03/2019 SAB spontaneous Unknown 07/2021 chemical Unknown 08/03/2023 miscarriage 6 spontaneous 04/29/20 [place] 39 live - full term 6# Male none [facility] Alexia hayden Tayo 07/10/22 Annabelle Padma 39 live - full term 7#11oz Female none [facility] Hay Tayo 01/11/24 spontaneous SM Delivery Date: 04/29/20 Last Updated by: Su MULLINS Delivery Date: 07/10/22 Last Updated by: Su MULLINS IOL Delivery Date: 01/11/24 Last Updated by: Keira Chen RN D C HPI 32 WK OB Details: CECY GALLEGOS is a 29 year old who presents for routine OB visit. OB Visit GERMAN Calculator Estimated Delivery Date Method Current WG Current Estimate 01/20/25 LMP (Certain) 32w 0d Expected Delivery Route/Plan Labor Preferences- CB/BF classes: [] labor support person: [] labor intervention preferences: [] pain management options preferred: [] cut cord/dad catch: [] : [] PP control planned: [] discussed possible routes of delivery and associated risks: [] special requests: [] Pre (more content not included)... Normal [facility] Laboratory - Chemistry and C hemistry - challengeOrdered By: Pam Koo on 11-16-2024 Glucose Ql (U) Negative [facility] Laboratory - UrinalysisOrder ed By: Pam Koo on 05-07-2025 Protein Ql (U) Negative [facility] Bakery Team Member Office Visit Reporton 11-16-2024 Bakery Team Member Office Visit Report [facility] [address], [address] [place] [address] OFFICE VISIT Date of Service: 11/16/24 MR#: [id number] Acct: [id number] Name: CECY GALLEGOS Rep #: [id number] : 1995 Provider: Dr. Pam hayden MD Age/Sex: 29/F [place] [facility] [place]: Signed Intake Vital Signs 06/29/24 10:20 11/04/24 15:31 11/16/24 09:11 11/16/24 09:19 Height 5 ft 3 in 5 ft 3 in 5 ft 3 in 5 ft 3 in Weight: 148 lb 2 oz BMI 26.2 BP 117/72 Intake Visit Reasons: 30 WK OB Pattern Painter Required: No Is patient in pain?: No Feel stressed/tense/nervous/an xious/difficulty sleeping: not at all Allergies banana Allergy (Mild, Verified 11/16/24 09:18) RASH Latex, Natural Rubber Allergy (Mild, Verified 11/16/24 09:18) Rash Medications ???Medication ???Instructions ???Recorded ???Confirmed ???Type vitamin#30 30 mg iron-10 1 cap PO DAILY 04/07/19 11/16/24 History mg iron-folic acid 1 mg-omg3 capsule aspirin 81 mg tablet,delayed 81 mg PO DAILY 12/22/23 11/16/24 H istory release (Adult Aspirin Regimen) levothyroxine 50 mcg tablet 50 mcg PO DAILY #90 tabs 09/08/24 11/16/24 Rx blood sugar diagnostic (Blood #120 ea 10/28/24 11/16/24 Rx Glucose Test strips) blood-glucose meter #1 ea 10/28/24 11/16/24 Rx lancets 30 gauge (Droplet Lancets) #200 ea 10/28/24 11/16/24 Rx metformin 500 mg tablet 500 mg PO QDAY #30 tabs 11/04/24 0 11/16/24 Rx Last Menstrual Period: 04/15/24 : No PFSH PFSH Medical History History of miscarriage History of miscarriage, currently Early stage of Supervision of high-risk Non-smoker 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 SAB (spontaneous ) Thyroiditis (spontaneous vaginal delivery) Spontaneous rupture of amniotic membranes Thyroid disorder GBS (group B Streptococcus carrier), +RV culture, currently Thyroid disease affecting Supervision of high-risk Amenorrhea ASCUS of cervix with negative high risk HPV 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 Surgical History S/P dilation and curettage ( 01/11/24) H/O wisdom tooth extraction Family History Father , BLOOD CLOT BLOOD CLOT Social History adopted: No household members: family housing: house number of children: 2 current occupational status: employed 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[employer] pets and animals: Yes (Outside dog and chickens) pets and animals: dog(s) and farm animals history of recent travel: No sexually active: Yes Smoking Status: Never smoker alcohol intake: never substance use type: does not use diet: gluten free well-balanced diet: daily or most days caffeine: No eating out: 1-3 times/week during the past year weight has: remained stable what type of physical activity do you participate in: walking and yoga frequency: 1-2 times per week duration: 15-30 minutes/day femi/zoroastrianism: Congregational seatbelt use: always do you feel safe at home: Yes 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 Date Name GA/Weeks Outcome Route Bt Weight Infant Gen Labor Lgth Anesthesia Del Locatn Provider FOB Unknown 03/2019 SAB spontaneous Unknown 07/2021 chemical Unknown 08/03/2023 miscarriage 6 spontaneous 04/29/20 River 39 live - full term 6# Male none [facility] Alexia hayden Tayo 07/10/22 Annabelle Rouse 39 live - full term 7#11oz Female none [facility] Guido Tayo 01/11/24 spontaneous SM Delivery Date: 04/29/20 Last Updated by: Su MULLINS Delivery Date: 07/10/22 Last Updated by: Su MULLINS IOL Delivery Date: 01/11/24 Last Updated by: Keira Chen RN D C HPI 30 WK OB Details: CECY GALLEGOS is a 29 year old who presents for routine OB visit. OB Visit GERMAN Calculator Estimated Delivery Date Method Current WG Current Estimate 01/20/25 LMP (Certain) 30w 5d Expected Delivery Route/Plan Labor Preferences- CB/BF classes: [] labor support person: [] labor intervention preferences: [] pain management options preferred: [] cut cord/dad catch: [] : [] PP control planned: [] discussed possible routes of delivery and associated risks: [] (more content not included)... Normal [facility] Endocrinology Visit Reporton 11-04-2024 Endocrinology Visit Report [facility] [address] [place] [address] OFFICE VISIT Date of Service: 11/04/24 MR#: [id number] Acct: [id number] Name: CECY GALLEGOS Rep #: [id number] : 1995 Provider: Mirela Amaya Age/Sex: 29/F [place] [facility] [place] Status: Signed Intake Vital Signs 11/06/23 15:37 10/26/24 10:28 11/04/24 15:31 Height 5 ft 3 in 5 ft 3 in 5 ft 3 in Weight: 150 lb BMI 26.5 BP 107/70 Blood Pressure Location Lt brachial Position Sitting Pulse 83 Pulse Source Monitor Pulse Oximetry (%) 97 Oxygen Delivery Method room air Intake Visit Reasons: 1 Y FU Chief Complaint: Thyroid, GDM Pattern Painter Required: No Accompanied by: Self Is patient in pain?: No Allergies banana Allergy (Mild, Verified 11/04/24 15:33) RASH Latex, Natural Rubber Allergy (Mild, Verified 11/04/24 15:33) Rash Medications ???Medication ???Instructions ???Recorded ???Confirmed ???Type vitamin#30 30 mg iron-10 1 cap PO DAILY 04/07/19 11/04/24 History mg iron-folic acid 1 mg-omg3 capsule aspirin 81 mg tablet,delayed 81 mg PO DAILY 12/22/23 11/04/24 H istory release (Adult Aspirin Regimen) levothyroxine 50 mcg tablet 50 mcg PO DAILY #90 tabs 09/08/24 11/04/24 Rx blood sugar diagnostic (Blood #120 ea 10/28/24 11/04/24 Rx Glucose Test strips) blood-glucose meter #1 ea 10/28/24 11/04/24 Rx lancets 30 gauge (Droplet Lancets) #200 ea 10/28/24 11/04/24 Rx metformin 500 mg tablet 500 mg PO QDAY #30 tabs 11/04/24 0 11/04/24 Rx PFSH Medical History History of miscarriage History of miscarriage, currently Early stage of Supervision of high-risk Non-smoker 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 SAB (spontaneous ) Thyroiditis (spontaneous vaginal delivery) Spontaneous rupture of amniotic membranes Thyroid disorder GBS (group B Streptococcus carrier), +RV culture, currently Thyroid disease affecting Supervision of high-risk Amenorrhea ASCUS of cervix with negative high risk HPV 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 Surgical History S/P dilation and curettage ( 01/11/24) H/O wisdom tooth extraction Family History Father , BLOOD CLOT BLOOD CLOT Social History adopted: No household members: family housing: house number of children: 2 current occupational status: employed 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[employer] pets and animals: Yes (Outside dog and chickens) pets and animals: dog(s) and farm animals history of recent travel: No sexually active: Yes Smoking Status: Never smoker alcohol intake: never substance use type: does not use diet: gluten free well-balanced diet: daily or most days caffeine: No eating out: 1-3 times/week during the past year weight has: remained stable what type of physical activity do you participate in: walking and yoga frequency: 1-2 times per week duration: 15-30 minutes/day femi/zoroastrianism: Congregational seatbelt use: always do you feel safe at home: Yes 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 She has hypothyroidism and is taking levothyroxine. TSH .806 August 17. She is 29 weeks gestation. She recently barely failed her 3 hour gtt due to fasting glucose 98. She has been testing her blood sugars. Blood sugars are in range with the exception of fasting blood sugars 101. She has history of 7 pregnancies with 2 children at home. No history of GDM or LGA in previous pregnancies. Paternal grandmother had DM2. ROS Const Constitutional: No anorexia, excessive sweating, malaise, night sweats, weight change or change in appetite Eyes Eyes: No change in vision ENT ENT: No hearing loss, nasal congestion or difficulty swallowing Cardio Cardiology: No chest pain at rest, excessive sweating, shortness of breath, dyspnea on exertion, irregular heart rhythm or palpitations Musc Musculoskeletal: No abnormal gait, joint pain, numbness or tingling Neuro Neurology: No abnormal gait, memory loss, numbness or tingling Psych Psychiatric: No change in appetite, No memory loss and No Thoughts of harming yourself/Others Resp Respiratory: No cough, chest congestion or shortness of breath Gastro GI: No abdominal pain, constipation, diarrh (more content not included)... Normal [facility] Gestational GTT 3HR 100gon 0 10-28-2024 3HR GTT- GEST. High [facility] Comment on above: Order Comment: Y Result Comment: FAST ING 98 Col: 10/28/24 0757 GLUCOSE TOLERANCE TEST FOR Reference Interval GESTATIONAL DIABETES Fasting <105 mg/dL 1 hour <190 mg/dl 2 hour <165 mg/dl 3 hour <145 mg/dl 1 HR GLU 176 Col: 10/28/24 0927 2 HR GLU 182 H Col: 10/28/24 1026 3 HR GLU 73 Col: 10/28/24 1130 Performed By: #### L 500.4710 ####[facility] [id number] [place], [address] Glucose tolerance 3 hours ge stational panelOrdered By: Pam Koo on 10-28-2024 Gestational Glucose Tolerance Test See comment [facility] Comment on above: FASTING 98 Col: 10/11 03/06 0757GLUCOSE TOLERANCE TEST FOR Reference Interval GESTATIONAL DIABETES Fasting <105 mg/dL 1 hour <190 mg/dl 2 hour <165 mg/dl 3 hour <145 mg/dl 1 HR GLU 176 Col: 10/28/24 0927 2 HR GLU 182 H Col: 10/28/24 1026 3 HR GLU 73 Col: 10/28/24 1130 Quantitative serum or plasma 3 hour gestational glucose tolerance panelOrdered By: Pam Koo on 10-28-2024 Glucose tolerance 3 hours gestational panel See comment [facility] Comment on above: FASTING 98 Col: 10/11 03/06 0757GLUCOSE TOLERANCE TEST FOR Reference Interval GESTATIONAL DIABETES Fasting <105 mg/dL 1 hour <190 mg/dl 2 hour <165 mg/dl 3 hour <145 mg/dl 1 HR GLU 176 Col: 10/28/24 0927 2 HR GLU 182 H Col: 10/28/24 1026 3 HR GLU 73 Col: 10/28/24 1130 Absolute lymphocyte countOrd ered By: Justina Guido on 10-26-2024 Lymphocytes Auto (Unsp spec) [#/Vol] 1.16 10*3/uL 0.83-4.51 [facility] Absolute neutrophil countOrd ered By: Justina Guido on 10-26-2024 Neutrophils (Bld) [#/Vol] 4.8 10*3/uL 2.0-7.7 [facility] Automated lymphocyte count a s percentage of total leukocytesOrdered By: Justina Guido on 10-26-2024 Lymphocytes/100 WBC Auto (Unsp spec) 16.9 % Low 19-41 [facility] Basophil percentageOrdered B y: Justina Guido on 10-26-2024 Basophils/100 WBC (Bld) 0.7 % 0-1 [facility] CBC W/Diff, Automatedon 10-11 Absolute Lymph 1.16 X10 3/uL Normal 0.83-4.51 [facility] Comment on above: Performed By: #### L 100.0100 ####[facility] [facility] [address] [place], [address] Absolute Neut 4.8 X10 3/uL Normal 2.0-7.7 [facility] Comment on above: Performed By: #### L 100.0100 ####[facility] [address] [place], [address] Basophils/100 WBC (Bld) 0.7 % Normal 0-1 [facility] Comment on above: Performed By: #### L 100.0100 ####[facility] [address] [place], [address] Eosinophils/100 WBC (Bld) 5.1 % High 0-5 [facility] Comment on above: Performed By: #### L 100.0100 ####[facility] [address] [place], [address] Erythrocyte distribution width (RBC) [Ratio] 12.1 % Normal 11.6-14.6 [facility] Comment on above: Performed By: #### L 100.0100 ####[facility] [address] [place], [address] Hematocrit (Bld) [Volume fraction] 33.7 % Low 37-47 [facility] Comment on above: Performed By: #### L 100.0100 ####[facility] [address] [place], [address] Hemoglobin (Bld) [Mass/Vol] 11.7 g/dL Low 12.0-15.0 [facility] Comment on above: Performed By: #### L 100.0100 ####[facility] [address] [place], [address] IG% 1.200 High 0.0-0.9 [facility] Comment on above: Result Comment: IG% - Immature Granulocytes (promyelocytes, myelocytes and metamyelocytes) > 1% indicates that a LEFT SHIFT is Present. Performed By: #### L 100.0100 ####[facility] [address] [place], [address] Lymphocytes/100 WBC (Bld) 16.9 % Low 19-41 [facility] Comment on above: Performed By: #### L 100.0100 ####[facility] [address] [place], [address] MCH (RBC) [Entitic mass] 31.2 pg Normal 27.0-32.0 [facility] Comment on above: Performed By: #### L 100.0100 ####[facility] [address] [place], [address] MCHC (RBC) [Mass/Vol] 34.7 g/dL Normal 32-36 [facility] Comment on above: Performed By: #### L 100.0100 ####[facility] [address] [place], [address] MCV (RBC) [Entitic vol] 89.9 fL Normal 81-99 [facility] Comment on above: Performed By: #### L 100.0100 ####[facility] [address] [place], [address] Monocytes/100 WBC (Bld) 6.1 % Normal 0-10 [facility] Comment on above: Performed By: #### L 100.0100 ####[facility] [address] [place], [address] Neutrophils/100 WBC (Bld) 70.0 % Normal 47-70 [facility] Comment on above: Performed By: #### L 100.0100 ####[facility] [address] [place], [address] Nucleated RBC (Bld) [#/Vol] 0 10*3/uL Normal 0-5 [facility] Comment on above: Performed By: #### L 100.0100 ####[facility] [address] [place], [address] Platelet mean volume (Bld) [Entitic vol] 9.3 fL Normal 6.2-12.0 [facility] Comment on above: Performed By: #### L 100.0100 ####[facility] [address] [place], [address] Platelets (Bld) [#/Vol] 232 10*3/uL Normal 150-450 [facility] Comment on above: Performed By: #### L 100.0100 ####[facility] [address] [place], [address] RBC (Bld) [#/Vol] 3.75 10*6/uL Low 4.2-5.4 [facility] Comment on above: Performed By: #### L 100.0100 ####[facility] [address] [place], [address] RDW SD 39.3 fl Normal 35.1-43.9 [facility] Comment on above: Performed By: #### L 100.0100 ####[facility] [address] [place], [address] WBC (Bld) [#/Vol] 6.9 10*3/uL Normal 4.4-11.0 [facility] Comment on above: Performed By: #### L 100.0100 ####[facility] [address] [place], [address] Eosinophil percentageOrdered By: Justina Guido on 10-26-2024 Eosinophils/100 WBC (Bld) 5.1 % High 0-5 [facility] Erythrocyte distribution wid th (RBC) [Ratio]Ordered By: Justina Guido on 10-26-2024 Erythrocyte distribution width (RBC) [Entitic vol] 39.3 fL 35.1-43.9 [facility] Erythrocyte distribution wid th ratioOrdered By: Justina Guido on 10-26-2024 Erythrocyte distribution width (RBC) [Ratio] 12.1 % 11.6-14.6 [facility] Erythrocyte distribution wid th standard deviationOrdered By: Justina Guido on 10-26-2024 Erythrocyte distribution width (RBC) [Ratio] 39.3 fl 35.1-43.9 [facility] Glucose Challenge Gest 1H 50 reddy 10-26-2024 GLU GEST 50g 1H 152 mg/dL High 70-140 [facility] Comment on above: Performed By: #### L 3890.6006, L509.8002, L501.0250 ####[facility] [address] [place], [address] Glucose measurement at 2 álvaro rs post-dose gestational glucose tolerance testOrdered By: Pam Koo on 10-26-2024 Glucose [Mass/Vol] 152 mg/dL High 70-140 [facility] HIVon 10-26-2024 HIV Non-Reactive Normal Nonreactive [facility] Comment on above: Result Comment: Non- Reactive Reactive Repeatedly reactive samples must be confirmed according to CDC recommended confirmatory algorithms. The subresults for either HIVAG or AHIV can be used as an aid in the selection of the confirmation algorithm for reactive samples. Send out specimens with Reactive results to [facility] for confirmation. Order the HIV antibody detection and differentiation: #[id number] Performed By: #### L 3890.6006, L509.8002, L501.0250 ####[facility] [address] [place], [place], [address] Hematocrit Auto (Bld) [Volum e fraction]Ordered By: Justina Guido on 10-26-2024 Hematocrit (Bld) [Volume fraction] 33.7 % Low 37-47 [facility] Hemoglobin measurementOrdere d By: Justina Guido on 10-26-2024 Hemoglobin (Bld) [Mass/Vol] 11.7 g/dL Low 12.0-15.0 [facility] Immature granulocytes/100 WB C Auto (Bld)Ordered By: Justina Guido on 10-26-2024 Immature granulocytes/100 WBC (Bld) 1.200 % High 0.0-0.9 [facility] Comment on above: IG% - Immature Granu locytes (promyelocytes, myelocytes and metamyelocytes) > 1% indicates that a LEFT SHIFT is Present. Laboratory - Chemistry and C hemistry - challengeOrdered By: Pam Koo on 10-26-2024 Glucose Ql (U) Negative [facility] Laboratory - UrinalysisOrder ed By: Pam Koo on 10-26-2024 Protein Ql (U) Negative [facility] Lymphocytes Auto (Unsp spec) [#/Vol]Ordered By: Justina Guido on 10-26-2024 Lymphocytes (Bld) [#/Vol] 1.16 10*3/uL 0.83-4.51 [facility] Lymphocytes/100 WBC Auto (Un sp spec)Ordered By: Justina Guido on 10-26-2024 Lymphocytes/100 WBC (Bld) 16.9 % Low 19-41 [facility] MCV (mean corpuscular volume ) determinationOrdered By: Justina Guido on 10-26-2024 MCV (RBC) [Entitic vol] 89.9 fL 81-99 [facility] Mean corpuscular hemoglobin (MCH) determinationOrdered By: Justina Guido on 10-26-2024 MCH (RBC) [Entitic mass] 31.2 pg 27.0-32.0 [facility] Mean corpuscular hemoglobin concentration (MCHC) determinationOrdered By: Justina Guido on 10-26-2024 MCHC (RBC) [Mass/Vol] 34.7 g/dL 32-36 [facility] Mean platelet volume determi nationOrdered By: Justina Guido on 10-26-2024 Platelet mean volume (Bld) [Entitic vol] 9.3 fL 6.2-12.0 [facility] Monocyte percentageOrdered B y: Justina Guido on 10-26-2024 Monocytes/100 WBC (Bld) 6.1 % 0-10 [facility] Neutrophil percentageOrdered By: Justina Guido on 10-26-2024 Neutrophils/100 WBC (Bld) 70.0 % 47-70 [facility] No Panel InformationOrdered By: Pam Koo on 10-26-2024 HIV (1&2) Antibody Non-Reactive Nonreactive [facility] Comment on above: Non-ReactiveReactive Repeatedly reactive samples must be confirmed according to CDC recommended confirmatory algorithms. The subresults for either HIVAG or AHIV can be used as an aid in the selection of the confirmation algorithm for reactive samples.Send out specimens with Reactive results to [facility] for confirmation.Order the HIV antibody detection and differentiation: #[id number] Nucleated red blood cell per centageOrdered By: Justina Guido on 10-26-2024 Nucleated RBC/100 WBC (Bld) [Ratio] 0 % 0-5 [facility] Bakery Team Member Office Visit Reporton 10-26-2024 Bakery Team Member Office Visit Report [facility] [address], [address] [place] [address] OFFICE VISIT Date of Service: 10/26/24 MR#: [id number] Acct: [id number] Name: CECY GALLEGOS Rep #: [id number] : 1995 Provider: Dr. Pam hayden MD Age/Sex: 29/F [place] [facility] [place]: Signed Intake Vital Signs 06/29/24 10:20 10/12/24 10:59 10/26/24 10:28 Height 5 ft 3 in 5 ft 3 in 5 ft 3 in Weight: 148 lb BMI 26.2 BP 114/74 Intake Visit Reasons: 28 WK OB/GLUCOSE Pattern Painter Required: No Is patient in pain?: No Allergies banana Allergy (Mild, Verified 10/12/24 10:56) RASH Latex, Natural Rubber Allergy (Mild, Verified 10/12/24 10:56) Rash Medications ???Medication ???Instructions ???Recorded ???Confirmed ???Type vitamin#30 30 mg iron-10 1 cap PO DAILY 04/07/19 10/26/24 History mg iron-folic acid 1 mg-omg3 capsule aspirin 81 mg tablet,delayed 81 mg PO DAILY 12/22/23 10/26/24 H istory release (Adult Aspirin Regimen) levothyroxine 50 mcg tablet 50 mcg PO DAILY #90 tabs 09/08/24 10/26/24 Rx Last Menstrual Period: 04/15/24 Zika: Zika virus screening: Negative : No PFSH PFSH Medical History History of miscarriage History of miscarriage, currently Early stage of Supervision of high-risk Non-smoker 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 SAB (spontaneous ) Thyroiditis (spontaneous vaginal delivery) Spontaneous rupture of amniotic membranes Thyroid disorder GBS (group B Streptococcus carrier), +RV culture, currently Thyroid disease affecting Supervision of high-risk Amenorrhea ASCUS of cervix with negative high risk HPV 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 Surgical History S/P dilation and curettage ( 01/11/24) H/O wisdom tooth extraction Family History Father , BLOOD CLOT BLOOD CLOT Social History adopted: No household members: family housing: house number of children: 2 current occupational status: employed 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[employer] pets and animals: Yes (Outside dog and chickens) pets and animals: dog(s) and farm animals history of recent travel: No sexually active: Yes Smoking Status: Never smoker alcohol intake: never substance use type: does not use diet: gluten free well-balanced diet: daily or most days caffeine: No eating out: 1-3 times/week during the past year weight has: remained stable what type of physical activity do you participate in: walking and yoga frequency: 1-2 times per week duration: 15-30 minutes/day femi/zoroastrianism: Congregational seatbelt use: always do you feel safe at home: Yes 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 Date Name GA/Weeks Outcome Route Bt Weight Infant Gen Labor Lgth Anesthesia Del Locatn Provider FOB Unknown 03/2019 SAB spontaneous Unknown 07/2021 chemical Unknown 08/03/2023 miscarriage 6 spontaneous 04/29/20 River 39 live - full term 6# Male none [employer] Alexia hayden [place] 07/10/22 Annabelle Rouse 39 live - full term 7#11oz Female none [facility] Hay [place] 01/11/24 spontaneous SM Delivery Date: 04/29/20 Last Updated by: Su MULLINS Delivery Date: 07/10/22 Last Updated by: Su MULLINS IOL Delivery Date: 01/11/24 Last Updated by: Keira Chen RN D C HPI 28 WK OB/GLUCOSE Details: CECY GALLEGOS is a 29 year old who presents for routine OB visit. OB Visit GERMAN Calculator Estimated Delivery Date Method Current WG Current Estimate 01/20/25 LMP (Certain) 27w 5d Expected Delivery Route/Plan Labor Preferences- CB/BF classes: [] labor support person: [] labor intervention preferences: [] pain management options preferred: [] cut cord/dad catch: [] : [] PP control planned: [] discussed possible routes of delivery and associated risks: [] special requests: [] Specific Issue/Plans Covid status: [] Flu vaccine: [] Tdap vaccine: [] Rhogam: [] LARC form signed: [] Problem list reviewed and updated with the most current plan of care details and appropriate orders placed. Relevant counseling for the gestational age provided. Continue r (more content not included)... Normal [facility] Platelet countOrdered By: Suzan Guido on 10-26-2024 Platelets (Bld) [#/Vol] 232 10*3/uL 150-450 [facility] RBC Auto (Bld) [#/Vol]Ordere d By: Justina Guido on 10-26-2024 RBC (Bld) [#/Vol] 3.75 10*6/uL Low 4.2-5.4 [facility] Syphilis Antibodieson 2024 Syphilis Abs Non-Reactive Normal Nonreactive [facility] Comment on above: Performed By: #### L 3890.6006, L509.8002, L501.0250 ####[facility] [address] [place], [place], [id number] T. pallidum abOrdered By: Katherine Koo on 10-26-2024 Syphilis Total Antibody Non-Reactive Nonreactive [facility] White blood cell (WBC) count Ordered By: Justina Guido on 10-26-2024 WBC (Bld) [#/Vol] 6.9 10*3/uL 4.4-11.0 [facility] Laboratory - Chemistry and C hemistry - challengeOrdered By: Pam Koo on 10-12-2024 Glucose Ql (U) Negative [facility] Laboratory - UrinalysisOrder ed By: Pam Koo on 10-12-2024 Protein Ql (U) Negative [facility] Bakery Team Member Office Visit Reporton 10-12-2024 Bakery Team Member Office Visit Report [facility]'s [address], [address] [place] [address] OFFICE VISIT Date of Service: 10/12/24 MR#: [id number] Acct: [id number] Name: CECY GALLEGOS Rep #: [id number] : 1995 Provider: Dr. Pam hayden MD Age/Sex: 29/F [place] [facility] [place]: Signed Intake Vital Signs 06/29/24 10:20 09/30/24 10:59 10/12/24 10:56 10/12/24 10:59 Height 5 ft 3 in 5 ft 3 in 5 ft 3 in 5 ft 3 in Weight: 144 lb 6 oz BMI 25.5 BP 117/77 Intake Visit Reasons: 26 WK OB Pattern Painter Required: No Is patient in pain?: No Feel stressed/tense/nervous/an xious/difficulty sleeping: not at all Allergies banana Allergy (Mild, Verified 10/12/24 10:56) RASH Latex, Natural Rubber Allergy (Mild, Verified 10/12/24 10:56) Rash Medications ???Medication ???Instructions ???Recorded ???Confirmed ???Type vitamin#30 30 mg iron-10 1 cap PO DAILY 04/07/19 10/12/24 History mg iron-folic acid 1 mg-omg3 capsule aspirin 81 mg tablet,delayed 81 mg PO DAILY 12/22/23 10/12/24 H istory release (Adult Aspirin Regimen) levothyroxine 50 mcg tablet 50 mcg PO DAILY #90 tabs 09/08/24 10/12/24 Rx Last Menstrual Period: 04/15/24 Zika: Zika virus screening: Negative : No PFSH PFSH Medical History History of miscarriage History of miscarriage, currently Early stage of Supervision of high-risk Non-smoker 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 SAB (spontaneous ) Thyroiditis (spontaneous vaginal delivery) Spontaneous rupture of amniotic membranes Thyroid disorder GBS (group B Streptococcus carrier), +RV culture, currently Thyroid disease affecting Supervision of high-risk Amenorrhea ASCUS of cervix with negative high risk HPV 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 Surgical History S/P dilation and curettage ( 01/11/24) H/O wisdom tooth extraction Family History Father , BLOOD CLOT BLOOD CLOT Social History adopted: No household members: family housing: house number of children: 2 current occupational status: employed 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[employer] pets and animals: Yes (Outside dog and chickens) pets and animals: dog(s) and farm animals history of recent travel: No sexually active: Yes Smoking Status: Never smoker alcohol intake: never substance use type: does not use diet: gluten free well-balanced diet: daily or most days caffeine: No eating out: 1-3 times/week during the past year weight has: remained stable what type of physical activity do you participate in: walking and yoga frequency: 1-2 times per week duration: 15-30 minutes/day femi/zoroastrianism: Congregational seatbelt use: always do you feel safe at home: Yes 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 Date Name GA/Weeks Outcome Route Bth Weight Gen Labor Lgth Anesthesia Del Locatn Provider FOB Unknown 03/2019 SAB spontaneous Unknown 07/2021 chemical Unknown 08/03/2023 miscarriage 6 spontaneous 04/29/20 River 39 live - full term 6# Male none [facility] Alexia hayden [place] 07/10/22 Annabelle Rouse 39 live - full term 7#11oz Female none [facility] Hay Tayo 01/11/24 spontaneous SM Delivery Date: 04/29/20 Last Updated by: Su MULLINS Delivery Date: 07/10/22 Last Updated by: Su MULLINS IOL Delivery Date: 01/11/24 Last Updated by: Keira Chen RN D C HPI 26 WK OB Details: CECY GALLEGOS is a 29 year old who presents for routine OB visit. OB Visit GERMAN Calculator Estimated Delivery Date Method Current WG Current Estimate 01/20/25 LMP (Certain) 25w 5d Expected Delivery Route/Plan Labor Preferences- CB/BF classes: [] labor support person: [] labor intervention preferences: [] pain management options preferred: [] cut cord/dad catch: [] : [] PP control planned: [] discussed possible routes of delivery and associated risks: [] special requests: [] Specific Issue/Plans Covid status: [] Flu vaccine: [] Tdap vaccine: [] Rhogam: [] LARC form signed: [] Problem list reviewed and updated with the most current plan of care details and appropriate (more content not included)... Normal [facility] Laboratory - Chemistry and C hemistry - challengeOrdered By: Justina Guido on 09-30-2024 Glucose Ql (U) Negative [facility] Laboratory - UrinalysisOrder ed By: Justina Guido on 09-30-2024 Protein Ql (U) Negative [facility] Bakery Team Member Office Visit Reporton 09-30-2024 Bakery Team Member Office Visit Report [facility] [address] [place] [address], [address] [place] [address] OFFICE VISIT Date of Service: 09/30/24 MR#: [id number] Acct: [id number] Name: CECY GALLEGOS Rep #: [id number] : 1995 Provider: CARON gomez Age/Sex: 29/F Location[place] [facility] [place] Status: Signed Intake Vital Signs 06/29/24 10:20 09/16/24 11:23 09/30/24 10:59 09/30/24 10:59 Height 5 ft 3 in 5 ft 3 in 5 ft 3 in 5 ft 3 in Weight: 140 lb BMI 24.7 BP 108/69 Intake Visit Reasons: HEARTBEAT CK Pattern Painter Required: No Is patient in pain?: No Allergies banana Allergy (Mild, Verified 09/30/24 10:59) RASH Latex, Natural Rubber Allergy (Mild, Verified 09/30/24 10:59) Rash Medications ???Medication ???Instructions ???Recorded ???Confirmed ???Type vitamin#30 30 mg iron-10 1 cap PO DAILY 04/07/19 09/30/24 History mg iron-folic acid 1 mg-omg3 capsule aspirin 81 mg tablet,delayed 81 mg PO DAILY 12/22/23 09/30/24 H istory release (Adult Aspirin Regimen) progesterone micronized 200 mg 200 mg vaginal QHS 30 days #30 cap s 05/17/24 09/30/24 Rx capsule (Prometrium) levothyroxine 50 mcg tablet 50 mcg PO DAILY #90 tabs 09/08/24 09/30/24 Rx Last Menstrual Period: 04/15/24 Zika: Zika virus screening: Negative : No Have you fallen in the past year?: No PFSH PFSH Medical History History of miscarriage History of miscarriage, currently Early stage of Supervision of high-risk Non-smoker 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 SAB (spontaneous ) Thyroiditis (spontaneous vaginal delivery) Spontaneous rupture of amniotic membranes Thyroid disorder GBS (group B Streptococcus carrier), +RV culture, currently Thyroid disease affecting Supervision of high-risk Amenorrhea ASCUS of cervix with negative high risk HPV 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 Surgical History S/P dilation and curettage ( 01/11/24) H/O wisdom tooth extraction Family History Father , BLOOD CLOT BLOOD CLOT Social History adopted: No household members: family housing: house number of children: 2 current occupational status: employed 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[employer] pets and animals: Yes (Outside dog and chickens) pets and animals: dog(s) and farm animals history of recent travel: No sexually active: Yes Smoking Status: Never smoker alcohol intake: never substance use type: does not use diet: gluten free well-balanced diet: daily or most days caffeine: No eating out: 1-3 times/week during the past year weight has: remained stable what type of physical activity do you participate in: walking and yoga frequency: 1-2 times per week duration: 15-30 minutes/day femi/zoroastrianism: Congregational seatbelt use: always do you feel safe at home: Yes 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 Date Name GA/Weeks Outcome Route Bth Weight Gen Labor Lgth Anesthesia Del Locatn Provider FOB Unknown 03/2019 SAB spontaneous Unknown 07/2021 chemical Unknown 08/03/2023 miscarriage 6 spontaneous 04/29/20 River 39 live - full term 6# Male none [facility] Alexia mitzichelita [place] 07/10/22 Annabelle Rouse 39 live - full term 7#11oz Female none [facility] Hay Tayo 01/11/24 spontaneous SM Delivery Date: 04/29/20 Last Updated by: Su MULLINS Delivery Date: 07/10/22 Last Updated by: Su MULLINS IOL Delivery Date: 01/11/24 Last Updated by: Keira Chen RN D C HPI HEARTBEAT CK Details: CECY GALLEGOS is a 29 year old who presents for routine OB visit. OB Visit GERMAN Calculator Estimated Delivery Date Method Current WG Current Estimate 01/20/25 LMP (Certain) 24w 0d Expected Delivery Route/Plan Labor Preferences- CB/BF classes: [] labor support person: [] labor intervention preferences: [] pain management options preferred: [] cut cord/dad catch: [] : [] PP control planned: [] discussed possible routes of delivery and associated risks: [] special requests: [] Specific Issue/Plans Covid status: [] Flu vaccine: [] Tdap vaccine: [] Rhogam: [] LARC form signed: [] Problem list reviewe (more content not included)... Normal [facility] Laboratory - Chemistry and C hemistry - challengeOrdered By: Reshma Driscoll on 09-16-2024 Glucose Ql (U) Negative [facility] Laboratory - UrinalysisOrder ed By: Reshma Driscoll on 09-16-2024 Protein Ql (U) Negative [facility] Bakery Team Member Office Visit Reporton 09-16-2024 Bakery Team Member Office Visit Report [facility]'s [address], [address] [place] [address] OFFICE VISIT Date of Service: 09/16/24 MR#: [id number] Acct: [id number] Name: CECY GALLEGOS Rep #: [id number] : 1995 Provider: CARON Wilson ams Age/Sex: 29/F Location[place] [facility] Status: Signed Intake Vital Signs 06/29/24 10:20 08/17/24 14:58 09/16/24 11:23 Height 5 ft 3 in 5 ft 3 in 5 ft 3 in Weight: 139 lb BMI 24.6 BP 124/74 H Intake Visit Reasons: 22 WK OB Chief Complaint: 22wk OB Is patient in pain?: No Allergies banana Allergy (Mild, Verified 09/16/24 11:21) RASH Latex, Natural Rubber Allergy (Mild, Verified 09/16/24 11:21) Rash Medications ???Medication ???Instructions ???Recorded ???Confirmed ???Type vitamin#30 30 mg iron-10 1 cap PO DAILY 04/07/19 09/16/24 History mg iron-folic acid 1 mg-omg3 capsule aspirin 81 mg tablet,delayed 81 mg PO DAILY 12/22/23 09/16/24 H istory release (Adult Aspirin Regimen) progesterone micronized 200 mg 200 mg vaginal QHS 30 days #30 cap s 05/17/24 09/16/24 Rx capsule (Prometrium) levothyroxine 50 mcg tablet 50 mcg PO DAILY #90 tabs 09/08/24 09/16/24 Rx Last Menstrual Period: 04/15/24 : No PFSH PFSH Medical History History of miscarriage History of miscarriage, currently Early stage of Supervision of high-risk Non-smoker 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 SAB (spontaneous ) Thyroiditis (spontaneous vaginal delivery) Spontaneous rupture of amniotic membranes Thyroid disorder GBS (group B Streptococcus carrier), +RV culture, currently Thyroid disease affecting Supervision of high-risk Amenorrhea ASCUS of cervix with negative high risk HPV 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 Surgical History S/P dilation and curettage ( 01/11/24) H/O wisdom tooth extraction Family History Father , BLOOD CLOT BLOOD CLOT Social History adopted: No household members: family housing: house number of children: 2 current occupational status: employed 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[employer] pets and animals: Yes (Outside dog and chickens) pets and animals: dog(s) and farm animals history of recent travel: No sexually active: Yes Smoking Status: Never smoker alcohol intake: never substance use type: does not use diet: gluten free well-balanced diet: daily or most days caffeine: No eating out: 1-3 times/week during the past year weight has: remained stable what type of physical activity do you participate in: walking and yoga frequency: 1-2 times per week duration: 15-30 minutes/day femi/zoroastrianism: Congregational seatbelt use: always do you feel safe at home: Yes 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 Date Name GA/Weeks Outcome Route Bth Weight Infant Gen Labor Lgth Anesthesia Del Locatn Provider FOB Unknown 03/2019 SAB spontaneous Unknown 07/2021 chemical Unknown 08/03/2023 miscarriage 6 spontaneous 04/29/20 River 39 live - full term 6# Male none [facility] Alexia hayden [place] 07/10/22 Annabelle Rouse 39 live - full term 7#11oz Female none [facility] Hay Cr 01/11/24 spontaneous SM Delivery Date: 04/29/20 Last Updated by: Su MULLINS Delivery Date: 07/10/22 Last Updated by: Su MULLINS IOL Delivery Date: 01/11/24 Last Updated by: Keira Chen RN D C HPI 22 WK OB Details: CECY GALLEGOS is a 29 year old who presents for routine OB visit. OB Visit GERMAN Calculator Estimated Delivery Date Method Current WG Current Estimate 01/20/25 LMP (Certain) 22w 0d Expected Delivery Route/Plan Labor Preferences- CB/BF classes: [] labor support person: [] labor intervention preferences: [] pain management options preferred: [] cut cord/dad catch: [] : [] PP control planned: [] discussed possible routes of delivery and associated risks: [] special requests: [] Specific Issue/Plans Covid status: [] Flu vaccine: [] Tdap vaccine: [] Rhogam: [] LARC form signed: [] Problem list reviewed and updated with the most current plan of care details and appropriate orders placed. Relevant counseling for t (more content not included)... Normal [facility] Miscellaneous procedureOrder ed By: Reshma Driscoll on 09-05-2024 Miscellaneous Test Comment SEE SCANNED REPORT [facility] NATERAon 09-05-2024 JUSTO SEE SCANNED REPORT Normal [facility] Comment on above: Performed By: #### L 509.4005, L509.8000, L3890.6005, L506.0400, BTS, L3890.6100, L100.0100, L3890.6300, L501.9520 #### [facility] Laboratory [address] [place], [place], [address] OB Anatomy w/ Transvaginalon 09-02-2024 OB Anatomy w/ Transvaginal [facility] [address] [place], [place] [address] OB Anatomy w/ Transvaginal MR#: [id number] Acct: [id number] Name: CECY GALLEGOS Rep #: [id number] : 1995 F 29 From: Lenard jorgensen MD PCP: Farzaneh Meraz DO Status: REG CLI Study: OB Anatomy w/ Transvaginal Date of Exam: 09/02 Exam# [id number] Ordering Dr: Caroline Stern UNIVERSITY REGISTRAR UNIVERSITY REGISTRAR -C PROCEDURE: OB ANATOMY W/ TRANSVAGINAL REASON FOR EXAM: well-being and anatomy. TECHNIQUE: Transvaginal imaging was performed for assessment of the cervical length. COMPARISON: None. FINDINGS: Number: 1 Position: Breech Placental Position: Anterior and not low-lying. Placental Abnormalities: None. DIMENSIONS: Biparietal Diameter: 4.63 cm: 20 weeks and 0 days: 50 percentile./ Head Circumference: 5.9 cm: 20 weeks and 1 day: 68 percentile/ Abdominal Circumference: 15.51 cm: 20 weeks and 5 days: 67.4 percentile/ Femur Length: 3.14 cm: 19 weeks and 5 days: 33 percentile/ ESTIMATED WEIGHT: 342 g plus/-51 g ESTIMATED WEIGHT PERCENTILE (24+ weeks): 60 percentile ESTIMATED GESTATIONAL AGE: Baseline: 20 weeks 0 days By Ultrasound: 19 weeks 6 days ESTIMATED DATE OF DELIVERY: Baseline: January 20, 2025 By Ultrasound: January 21, 2025 BIOPHYSICAL ASSESSMENT: Amniotic Fluid Volume: Subjectively normal. Amniotic Fluid Index: Within normal limits. Cardiac Motion: 146 beats per minute (average) Trunk and Limb Motion: Present. MATERNAL ANATOMY: Adnexa: Neither maternal ovary is successfully identified. Cervical Length (if measured): ANATOMY: Spine: Unremarkable. Cranium: Unremarkable. Cerebellum: Unremarkable. Cisterna Magna: Unremarkable. Cavum Septum Pellucidi: Present. Lateral Ventricles: Unremarkable. Choroid Plexus: There is a 8 mm x 4 mm choroid plexus cyst. Midline Falx: Present. Nuchal Fold: Upper Lip: Grossly intact. Heart: Normal four-chamber view. Ventricular Outflow Tracts: Unremarkable. Stomach: Unremarkable. Kidneys: Unremarkable. Bladder: Midline. Umbilical Cord: Three vessel cord. Normal and placental insertions. Extremities: Unremarkable. US/OB Anatomy w/ Transvaginal IMPRESSION: Single live intrauterine gestation with a mean gestational age of 19 weeks and 6 days. 8 mm x 4 mm choroid plexus cyst. Reading Location: [facility] CC: CONNIE Stern; Farzaneh Meraz DO Cheese Supervisor: Signed Normal [facility] Thyroid Peroxidase ABon 02-0 THYR PEROX AB 128 IU/mL High 0-34 [facility] Comment on above: Result Comment: Perf ormed at: - [facility] [address] [id number] Cardiology Specialist: Nicolas Maldonado PhD, Phone: [phone] Performed By: #### L 509.4005, L509.8000, L3890.6005, L506.0400, BTS, L3890.6100, L100.0100, L3890.6300, L501.9520 #### [facility] [address] [place], [place], [address] Direct serum free thyroxine (FT4) measurementOrdered By: Caroline Stern on 08-17-2024 Free T4 [Mass/Vol] 0.94 ng/dL 0.76-1.46 [facility] Laboratory - Chemistry and C hemistry - challengeOrdered By: Caroline Stern on 08-17-2024 Glucose Ql (U) Negative [facility] Laboratory - UrinalysisOrder ed By: Caroline Stern on 08-17-2024 Protein Ql (U) Negative [facility] Bakery Team Member Office Visit Reporton 08-17-2024 Bakery Team Member Office Visit Report [facility]'s [address], [address] [place] [address] OFFICE VISIT Date of Service: 08/17/24 MR#: [id number] Acct: [id number] Name: CECY GALLEGOS Rep #: [id number] : 1995 Provider: CONNIE kimbrough Age/Sex: 29/F [place] [facility] Status: Signed Intake Vital Signs 06/29/24 10:20 08/01/24 13:32 08/17/24 14:58 Height 5 ft 3 in 5 ft 3 in 5 ft 3 in Weight: 133 lb 4 oz BMI 23.6 BP 110/62 Intake Visit Reasons: 18 WK OB Chief Complaint: 18 Week OB Pattern Painter Required: No Is patient in pain?: No Allergies banana Allergy (Mild, Verified 08/17/24 14:57) RASH Latex, Natural Rubber Allergy (Mild, Verified 08/17/24 14:57) Rash Medications ???Medication ???Instructions ???Recorded ???Confirmed ???Type vitamin#30 30 mg iron-10 1 cap PO DAILY 04/07/19 08/17/24 History mg iron-folic acid 1 mg-omg3 capsule levothyroxine 50 mcg tablet 50 mcg PO DAILY #90 tabs 11/06/23 08/17/24 Rx aspirin 81 mg tablet,delayed 81 mg PO DAILY 12/22/23 08/17/24 H istory release (Adult Aspirin Regimen) progesterone micronized 200 mg 200 mg vaginal QHS 30 days #30 cap s 05/17/24 08/17/24 Rx capsule (Prometrium) Last Menstrual Period: 04/15/24 Zika: Zika virus screening: Negative : No Have you fallen in the past year?: No PFSH PFSH Medical History (Updated 08/17/24 @ 15:25 by Caroline Stern UNIVERSITY REGISTRAR, UNIVERSITY REGISTRAR-C) History of miscarriage History of miscarriage, currently Early stage of Supervision of high-risk Non-smoker 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 SAB (spontaneous ) Thyroiditis (spontaneous vaginal delivery) Spontaneous rupture of amniotic membranes Thyroid disorder GBS (group B Streptococcus carrier), +RV culture, currently Thyroid disease affecting Supervision of high-risk Amenorrhea ASCUS of cervix with negative high risk HPV 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 Surgical History S/P dilation and curettage ( 01/11/24) H/O wisdom tooth extraction Family History Father , BLOOD CLOT BLOOD CLOT Social History adopted: No household members: family housing: house number of children: 2 current occupational status: employed 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[employer] pets and animals: Yes (Outside dog and chickens) pets and animals: dog(s) and farm animals history of recent travel: No sexually active: Yes Smoking Status: Never smoker alcohol intake: never substance use type: does not use diet: gluten free well-balanced diet: daily or most days caffeine: No eating out: 1-3 times/week during the past year weight has: remained stable what type of physical activity do you participate in: walking and yoga frequency: 1-2 times per week duration: 15-30 minutes/day femi/zoroastrianism: Congregational seatbelt use: always do you feel safe at home: Yes 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 Date Name GA/Weeks Outcome Route Bth Weight Gen Labor Lgth Anesthesia Del Locatn Provider FOB Unknown 03/2019 SAB spontaneous Unknown 07/2021 chemical Unknown 08/03/2023 miscarriage 6 spontaneous 04/29/20 River 39 live - full term 6# Male none [facility] Alexia jewelterry [place] 07/10/22 Annabellephoebe Rouse 39 live - full term 7#11oz Female none [facility] Hay Tayo 01/11/24 spontaneous SM Delivery Date: 04/29/20 Last Updated by: Su MULLINS Delivery Date: 07/10/22 Last Updated by: Su MULLINS IOL Delivery Date: 01/11/24 Last Updated by: GELY Boykin C HPI 18 WK OB Details: CECY GALLEGOS is a 29 year old who presents for routine OB visit. OB Visit GERMAN Calculator Estimated Delivery Date Method Current WG Current Estimate 01/20/25 LMP (Certain) 17w 5d Expected Delivery Route/Plan Labor Preferences- CB/BF classes: [] labor support person: [] labor intervention preferences: [] pain management options preferred: [] cut cord/dad catch: [] : [] PP control planned: [] discussed possible routes of delivery and associated risks: [] special requests: [] Specific Issue/Plans Covid status: [] Flu vaccine: [] Tdap vaccine: [] Rhogam: [] LARC form signed: (more content not included)... Normal [facility] Serum or plasma thyroid stim ulating hormone (TSH) measurement (units/volume)Ordered By: Caroline Stern on 08-17-2024 TSH Qn 0.806 uIU/mL 0.358-3.740 [facility] Serum or plasma thyroperoxid ase antibody assay (units/volume)Ordered By: Caroline Stern on 08-17-2024 TPO Ab Qn 128 [IU]/mL High [address] Comment on above: Performed at: [facility] [address] [id number] Director: Nicolas Maldonado PhD, Phone: [phone] T4 Free Directon 08-17-2024 T4 FREE DIRECT 0.94 ng/dL Normal 0.76-1.46 [facility] Comment on above: Performed By: #### L 509.4005, L509.8000, L3890.6005, L506.0400, BTS, L3890.6100, L100.0100, L3890.6300, L501.9520 #### [facility] Laboratory [address] [place] [address], [address] TPO Ab QnOrdered By: Caroline rios on 08-17-2024 Thyroid Peroxidase Antibodies 128 IU/mL High [address] [place] [address] Comment on above: Performed at: [facility] [address] [id number] Director: Nicolas Maldonado PhD, Phone: [phone] TSH QnOrdered By: Caroline kimbrough on 08-17-2024 Thyroid Stimulating Hormone (TSH) 0.806 uIU/mL 0.358-3.740 [facility] Thyroid Stim Hormone (TSH)on 08-17-2024 TSH 0.806 uIU/mL Normal 0.358-3.740 [facility] Comment on above: Performed By: #### L 509.4005, L509.8000, L3890.6005, L506.0400, BTS, L3890.6100, L100.0100, L3890.6300, L501.9520 #### [facility] [address] [place], [address] Laboratory - Chemistry and C hemistry - challengeon 08-01-2024 Glucose Ql (U) Negative [facility] Laboratory - Urinalysison Protein Ql (U) Negative [facility] Bakery Team Member Office Visit Reporton 08-01-2024 Bakery Team Member Office Visit Report [facility]'s [address], [address] [place] [address] OFFICE VISIT Date of Service: 08/01/24 MR#: [id number] Acct: [id number] Name: CECY GALLEGOS Rep #: [id number] : 1995 Provider: CARON Wilson ams Age/Sex: 29/F [place] [facility] [place]: Signed Intake Vital Signs 06/29/24 10:20 07/20/24 15:37 08/01/24 13:30 08/01/24 13:32 Height 5 ft 3 in 5 ft 3 in 5 ft 3 in 5 ft 3 in Weight: 131 lb BMI 23.2 BP 129/80 H Intake Visit Reasons: HEARTBEAT CK Pattern Painter Required: No Is patient in pain?: No Feel stressed/tense/nervous/an xious/difficulty sleeping: not at all Allergies banana Allergy (Mild, Verified 08/01/24 13:30) RASH Latex, Natural Rubber Allergy (Mild, Verified 08/01/24 13:30) Rash Medications ???Medication ???Instructions ???Recorded ???Confirmed ???Type vitamin#30 30 mg iron-10 1 cap PO DAILY 04/07/19 08/01/24 History mg iron-folic acid 1 mg-omg3 capsule levothyroxine 50 mcg tablet 50 mcg PO DAILY #90 tabs 11/06/23 08/01/24 Rx aspirin 81 mg tablet,delayed 81 mg PO DAILY 12/22/23 08/01/24 History release (Adult Aspirin Regimen) progesterone micronized 200 mg 200 mg vaginal QHS 30 days #30 caps 05/17/24 08/01/24 Rx capsule (Prometrium) Last Menstrual Period: 04/15/24 Zika: Zika virus screening: Negative : No Have you fallen in the past year?: No PFSH PFS Medical History History of miscarriage History of miscarriage, currently Early stage of Supervision of high-risk Non-smoker 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 SAB (spontaneous ) Thyroiditis (spontaneous vaginal delivery) Spontaneous rupture of amniotic membranes Thyroid disorder GBS (group B Streptococcus carrier), +RV culture, currently Thyroid disease affecting Supervision of high-risk Amenorrhea ASCUS of cervix with negative high risk HPV 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 Surgical History S/P dilation and curettage ( 01/11/24) H/O wisdom tooth extraction Family History Father , BLOOD CLOT BLOOD CLOT Social History adopted: No household members: family housing: house number of children: 2 current occupational status: employed 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[employer] pets and animals: Yes (Outside dog and chickens) pets and animals: dog(s) and farm animals history of recent travel: No sexually active: Yes Smoking Status: Never smoker alcohol intake: never substance use type: does not use diet: gluten free well-balanced diet: daily or most days caffeine: No eating out: 1-3 times/week during the past year weight has: remained stable what type of physical activity do you participate in: walking and yoga frequency: 1-2 times per week duration: 15-30 minutes/day femi/zoroastrianism: Congregational seatbelt use: always do you feel safe at home: Yes 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 Date Name GA/Weeks Outcome Route Bt Weight Gen Labor Lgth Anesthesia Del Locatn Provider FOB Unknown 03/2019 SAB spontaneous Unknown 07/2021 chemical Unknown 08/03/2023 miscarriage 6 spontaneous 04/29/20 River 39 live - full term 6# Male none [facility] Alexia hayden [place] 07/10/22 Annabelle Rouse 39 live - full term 7#11oz Female none [facility] Hay Tayo 01/11/24 spontaneous SM Delivery Date: 04/29/20 Last Updated by: Su MULLINS Delivery Date: 07/10/22 Last Updated by: Su MULLINS IOL Delivery Date: 01/11/24 Last Updated by: GELY Boykin C HPI HEARTBEAT CK Details: CECY GALLEGOS is a 29 year old who presents for routine OB visit. OB Visit GERMAN Calculator Estimated Delivery Date Method Current WG Current Estimate 01/20/25 LMP (Certain) 15w 3d Expected Delivery Route/Plan Labor Preferences- CB/BF classes: [] labor support person: [] labor intervention preferences: [] pain management options preferred: [] cut cord/dad catch: [] : [] PP control planned: [] discussed possible routes of delivery and associated risks: [] special requests: [] Specific Issue/Plans Covid status: [] Flu vaccine: [] Tdap v (more content not included)... Normal [facility] Laboratory - Chemistry and C hemistry - challengeon 07-20-2024 Glucose Ql (U) Negative [facility] Laboratory - Urinalysison Protein Ql (U) Negative [facility] Bakery Team Member Office Visit Reporton 07-20-2024 Bakery Team Member Office Visit Report [facility] [address], [address] [place] [address] OFFICE VISIT Date of Service: 07/20/24 MR#: [id number] Acct: [id number] Name: CECY GALLEGOS Rep #: [id number] : 1995 Provider: CONNIE kimbrough Age/Sex: 29/F [place] [facility] [place]: Signed Intake Vital Signs 01/29/24 10:17 06/29/24 10:20 07/20/24 15:37 Height 5 ft 3 in 5 ft 3 in 5 ft 3 in Weight: 128 lb 8 oz BMI 22.7 BP 112/74 Intake Visit Reasons: 14 WK OB Chief Complaint: 13 wk ob Is patient in pain?: No Allergies banana Allergy (Mild, Verified 07/20/24 15:39) RASH Latex, Natural Rubber Allergy (Mild, Verified 07/20/24 15:39) Rash Medications ???Medication ???Instructions ???Recorded ???Confirmed ???Type vitamin#30 30 mg iron-10 1 cap PO DAILY 04/07/19 07/20/24 History mg iron-folic acid 1 mg-omg3 capsule levothyroxine 50 mcg tablet 50 mcg PO DAILY #90 tabs 11/06/23 07/20/24 Rx aspirin 81 mg tablet,delayed 81 mg PO DAILY 12/22/23 07/20/24 History release (Adult Aspirin Regimen) progesterone micronized 200 mg 200 mg vaginal QHS 30 days #30 caps 05/17/24 07/20/24 Rx capsule (Prometrium) Last Menstrual Period: 04/15/24 : No PFSH PFSH Medical History History of miscarriage History of miscarriage, currently Early stage of Supervision of high-risk Non-smoker 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 SAB (spontaneous ) Thyroiditis (spontaneous vaginal delivery) Spontaneous rupture of amniotic membranes Thyroid disorder GBS (group B Streptococcus carrier), +RV culture, currently Thyroid disease affecting Supervision of high-risk Amenorrhea ASCUS of cervix with negative high risk HPV 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 Surgical History S/P dilation and curettage ( 01/11/24) H/O wisdom tooth extraction Family History Father , BLOOD CLOT BLOOD CLOT Social History adopted: No household members: family housing: house number of children: 2 current occupational status: employed 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[employer] pets and animals: Yes (Outside dog and chickens) pets and animals: dog(s) and farm animals history of recent travel: No sexually active: Yes Smoking Status: Never smoker alcohol intake: never substance use type: does not use diet: gluten free well-balanced diet: daily or most days caffeine: No eating out: 1-3 times/week during the past year weight has: remained stable what type of physical activity do you participate in: walking and yoga frequency: 1-2 times per week duration: 15-30 minutes/day femi/zoroastrianism: Congregational seatbelt use: always do you feel safe at home: Yes 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 Date Name GA/Weeks Outcome Route Bth Weight Gen Labor Lgth Anesthesia Del Locatn Provider FOB Unknown 03/2019 SAB spontaneous Unknown 07/2021 chemical Unknown 08/03/2023 miscarriage 6 spontaneous 04/29/20 River 39 live - full term 6# Male none [facility] Alexia hayden Tayo 07/10/22 [place] 39 live - full term 7#11oz Female none [facility] Hay [place] 01/11/24 spontaneous SM Delivery Date: 04/29/20 Last Updated by: Su MULLINS Delivery Date: 07/10/22 Last Updated by: Su MULLINS IOL Delivery Date: 01/11/24 Last Updated by: GELY Boykin C HPI 14 WK OB Details: CECY GALLEGOS is a 29 year old who presents for routine OB visit. OB Visit GERMAN Calculator Estimated Delivery Date Method Current WG Current Estimate 01/20/25 LMP (Certain) 14w 2d Expected Delivery Route/Plan Labor Preferences- CB/BF classes: [] labor support person: [] labor intervention preferences: [] pain management options preferred: [] cut cord/dad catch: [] : [] PP control planned: [] discussed possible routes of delivery and associated risks: [] special requests: [] Specific Issue/Plans Covid status: [] Flu vaccine: [] Tdap vaccine: [] Rhogam: [] LARC form signed: [] Problem list reviewed and updated with the most current plan of care details and appropriate orders placed. Relevant counseling for th (more content not included)... Normal [facility] Progress Noteon 07-01-2024 Creative Services Writer Authentication Interface Message Text Maternal Medicine Consult Date of Service: 07/01/2024 Referring Provider: Keshia Perera Primary Care Provider: No primary care provider on file. Reason for Consult: Dr. Keshia Perera requests that Cecy be evaluated due to TPO Ab positive. HISTORY OF PRESENTING PROBLEM: Cecy is a 29 y.o. at 11w0d gestation. Cecy is referred for positive TPO antibodies. 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 She is currently taking 50 mcg of levothyroxine and is monitored by Concrete Pavement Installer Moises Mazariegos MD. She has no symptoms of hypothyroidism and has had normal levels of TSH. She denies fever/chills, cough, SOB, headache, bleeding, loss of fluid, UC/Cramping, abdominal pain. movement is present. OB History Para Term AB Living 7 2 2 0 4 2 SAB IAB Ectopic Multiple Live Births 4 0 0 0 2 # Outcome Date GA Lbr Jenaro/2nd Weight Sex Type Anes PTL Lv 7 Current 6 SAB 01/11/24 10w0d SAB Comments: D&C 5 SAB 08/03/23 6w0d SAB 4 Term 07/10/22 39w0d 3.515 kg F Vag-Spont None N BRYSON Name: Annabelle 3 07/2021 Comments: chemical 2 Term 04/29/20 39w2d 2.722 kg M Vag-Spont None N BRYSON Name: Angel Luis 1 03/2019 5w0d SAB Past Medical History: Diagnosis Date Chiari malformation type I Hypermobility of joint MTHFR gene mutation with history of multiple loss, antepartum Syrinx Thyroid antibody positive 197 on 06/17/24 Vaginal Pap smear, abnormal most recenty NIL Past Surgical History: Procedure Laterality Date DILATION AND CURETTAGE OF UTERUS 01/2024 WISDOM TOOTH EXTRACTION 2012 Allergies Allergen Reactions Latex Rash Other Hives Bananas - hives Pineapple - hives Banana Rash Social History Socioeconomic History Marital status: Unknown Spouse name: None Number of children: None Years of education: None Highest education level: None Tobacco Use Smoking status: Never Smokeless tobacco: Never Substance and Sexual Activity Alcohol use: Not Currently Comment: rare social use prior to Drug use: Never Infections Live with someone with or exposed to TB No History of STI's None Rash or viral illness since last menstruation No 2nd STI GBS Yes 3rd STI Hx of Chicken Pox Yes as a child Other infections Partner has hx of genital herpes No Genetics Age is > than 35y as of estimated date No Thalassemia No Neural Tube Defect No Congenital Heart Defect Yes FOB twin sister - had surgery at age 3 Down Syndrome No Get-Sachs No Arabella Disease No Sickle Cell Disease or Trait No Hemophilia, Thrombophilia Yes MTHFR - C1, A1 Muscular Dystrophy No Cystic Fibrosis No Segundo's Chorea No Intellectual Disability/Autism No Metabolic Disorder No Recurrent Loss, or a Stillbirth Yes Inherited Genetic or Chromosomal Disorder No Illicit; Rec.drugs; Alcohol since last menses No Family History Problem Relation Age of Onset DVT Father Pulmonary Embolism Father Sudden Father Sleep Apnea Brother Heart Disease Maternal Grandfather Thyroid Disease Paternal Grandmother Skin Cancer Paternal Grandfather Outpatient Encounter Medications as of 07/01/2024 Medication Sig Dispense Refill levothyroxine (SYNTHROID) 50 MCG tablet Take 1 Tablet (50 mcg) by mouth daily Progesterone [address] 1 Suppository (200 mg) vaginally nightly at bedtime aspirin EC (ECOTRIN LOW STRENGTH) 81 MG EC tablet Take by mouth daily Vit-Fe Fumarate-FA ( VITAMINS PO) Take 1 Tablet by mouth daily [DISCONTINUED] Calcium Carbonate-Vit D-Min (CALCIUM-VITAMIN D-MINERALS) 600-800 MG-UNIT CHEW Take by mouth daily No facility-administered encounter medications on file as of 07/01/2024. Review of Systems Constitutional: Positive for fatigue. All other systems reviewed and are negative. Physical Exam Nursing note and vitals reviewed. Constitutional: Appearance: She is well-developed and well-nourished. HENT: Head: Normocephalic and atraumatic. Eyes: Pupils: Pupils are equal, round, and reactive to light. Cardiovascular: Rate and Rhythm: Normal rate. Pulmonary: Effort: Pulmonary effort is normal. Neurological: Mental Status: She is alert and oriented to person, place, and time. Skin: General: Skin is warm and dry. Psychiatric: Mood and Affect: Mood and affect normal. Behavior: Behavior normal. Thought Content: Thought content normal. Judgment: Judgment normal. FHT: Positive Presentation: N/A Laboratory Test Results: No visits with results within 1 Year(s) from this visit. Latest known visit with results is: No results found for any previous visit. Ultrasound Results: 1. Lee intrauterine with cardiac activity present at 11w 0d with an GERMAN of 01/20/2025. 2. Kerman rump length measurement are consistent with supplied dating. 3. Anatomic detail is extremely (more content not included)... Normal [facility] Laboratory - Chemistry and C hemistry - challengeon 06-29-2024 Glucose Ql (U) Negative [facility] Laboratory - Urinalysison Protein Ql (U) Negative [facility] Bakery Team Member Office Visit Reporton 06-29-2024 Bakery Team Member Office Visit Report [facility] [address] [place] [address], [address] [place] [address] OFFICE VISIT Date of Service: 06/29/24 MR#: [id number] Acct: [id number] Name: CECY GALLEGOS Rep #: [id number] : 1995 Provider: Dr. Pam hayden MD Age/Sex: 29/F [place] [facility] [place]: Signed Intake Vital Signs 06/17/24 08:47 06/29/24 10:18 06/29/24 10:20 Height 5 ft 3 in 5 ft 3 in 5 ft 3 in Weight: 127 lb BMI 22.4 BP 121/78 H Blood Pressure Location Lt brachial Position Sitting Intake Visit Reasons: heartbeat check per Chief Complaint: Heart beat Check Allergies banana Allergy (Mild, Verified 06/29/24 10:17) RASH Latex, Natural Rubber Allergy (Mild, Verified 06/29/24 10:17) Rash Medications ???Medication ???Instructions ???Recorded ???Confirmed ???Type vitamin#30 30 mg iron-10 1 cap PO DAILY 04/07/19 06/29/24 History mg iron-folic acid 1 mg-omg3 capsule levothyroxine 50 mcg tablet 50 mcg PO DAILY #90 tabs 11/06/23 06/29/24 Rx aspirin 81 mg tablet,delayed 81 mg PO DAILY 12/22/23 06/29/24 History release (Adult Aspirin Regimen) progesterone micronized 200 mg 200 mg vaginal QHS 30 days #30 caps 05/17/24 Rx capsule (Prometrium) Last Menstrual Period: 04/15/24 : No Nurse's Note: Heart beat check PFSH PFS Medical History (Updated 12/18/24 @ 10:[address] 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 Surgical History S/P dilation and curettage ( 01/11/24) H/O wisdom tooth extraction Family History Father , BLOOD CLOT BLOOD CLOT Social History adopted: No household members: family housing: house number of children: 2 current occupational status: employed 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[employer] pets and animals: Yes (Outside dog and chickens) pets and animals: dog(s) and farm animals history of recent travel: No sexually active: Yes Smoking Status: Never smoker alcohol intake: never substance use type: does not use diet: gluten free well-balanced diet: daily or most days caffeine: No eating out: 1-3 times/week during the past year weight has: remained stable what type of physical activity do you participate in: walking and yoga frequency: 1-2 times per week duration: 15-30 minutes/day femi/zoroastrianism: Congregational seatbelt use: always do you feel safe at home: Yes 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 Date Name GA/Weeks Outcome Route Bt Weight Gen Labor Lgth Anesthesia Del Locatn Provider FOB Unknown 03/2019 SAB spontaneous Unknown 07/2021 chemical Unknown 08/03/2023 miscarriage 6 spontaneous 04/29/20 River 39 live - full term 6# Male none [employer] [facility] Alexia hayden Tayo 07/10/22 Annabelle Rouse 39 live - full term 7#11oz Female none [employer] Hay [place] 01/11/24 spontaneous SM Delivery Date: 04/29/20 Last Updated by: Su MULLINS Delivery Date: 07/10/22 Last Updated by: Su MULLINS IOL Delivery Date: 01/11/24 Last Updated by: Keira Chen, RN Jerrod C HPI heartbeat check per Details: CECY GALLEGOS is a 29 year old who presents for routine OB visit. OB Visit GERMAN Calculator Estimated Delivery Date Method Current WG Current Estimate 01/20/25 LMP (Certain) 10w 5d Expected Delivery Route/Plan Labor Preferences- CB/BF classes: [] labor support person: [] labor intervention preferences: [] pain management options preferred: [] cut cord/dad catch: [] : [] PP control planned: [] discussed possible routes of delivery and associated risks: [] special requests: [] Specific Issue/Plans Covid status: [] Flu vaccine: [] Tdap vaccine: [] Rhogam: [] LARC form signed: [] Problem list reviewed an (more content not included)... Normal [facility] Chlamydia/GC RORY aptimaon CHLAMY,NUC ACID Negative Normal Negative [facility] Comment on above: Performed By: #### L 7000.1800, M1.0 ####[facility] [id number] [place], [place], [id number] GC BY NUC ACID Negative Normal Negative [facility] Comment on above: Result Comment: Perf ormed at: =G - [facility] [address] [id number] Cardiology Specialist: Isis Aranda MD, Phone: [phone] Performed By: #### L 7000.1800, M100.2200 ####[facility] [id number] [place], [place], [id number] Thyroid Antibodieson 024 TG AB < 1.0 Normal 0.0-0.9 [facility] Comment on above: Result Comment: Thyr oglobulin Antibody measured by Chidi Erich Methodology It should be noted that the presence of thyroglobulin antibodies may not be pathogenic nor diagnostic, especially at very low levels. The assay running rigger has found that four percent of individuals without evidence of thyroid disease or autoimmunity will have positive TgAb levels up to 4 IU/mL. Performed at: [address] [id number] Cardiology Specialist: Nicolas Maldonado PhD, Phone: [phone] Performed By: #### L 3300.6750 #### [facility] [address] [place], [place], [id number] THYR PEROX AB 197 IU/mL High 0-34 [facility] Comment on above: Performed By: #### L 3300.6750 #### [facility] [address] [place], [place], [id number] Urine Cultureon 06-18-2024 URC Culture exhibits no growth. Normal [facility] Comment on above: Performed By: #### L 7000.1800, M100.2200 ####[facility] [id number] [place], [place], [id number] Absolute neutrophil countOrd ered By: Justina Guido on 06-17-2024 Neutrophils (Bld) [#/Vol] 4.8 10*3/uL 2.0-7.7 [facility] Basophil percentageOrdered B y: Justina Guido on 06-17-2024 Basophils/100 WBC (Bld) 0.6 % 0-1 [facility] C. trachomatis rRNA RORY+prob e Ql (Unsp spec)Ordered By: Justina Guido on 06-17-2024 Chlamydia DNA (RORY) Negative Negative [facility] CBC W/Diff, Automatedon Absolute Lymph 1.73 X10 3/uL Normal 0.83-4.51 [facility] Comment on above: Performed By: #### L 509.4005, L509.8000, L3890.6005, L506.0400, BTS, L3890.6100, L100.0100, L3890.6300, L501.9520 #### [facility] [address] [place], [address] Absolute Neut 4.8 X10 3/uL Normal 2.0-7.7 [facility] Comment on above: Performed By: #### L 509.4005, L509.8000, L3890.6005, L506.0400, BTS, L3890.6100, L100.0100, L3890.6300, L501.9520 #### [facility] [address] [place], [address] Basophils/100 WBC (Bld) 0.6 % Normal 0-1 [facility] Comment on above: Performed By: #### L 509.4005, L509.8000, L3890.6005, L506.0400, BTS, L3890.6100, L100.0100, L3890.6300, L501.9520 #### [facility] [address] [place], [address] Eosinophils/100 WBC (Bld) 1.2 % Normal 0-5 [facility] Comment on above: Performed By: #### L 509.4005, L509.8000, L3890.6005, L506.0400, BTS, L3890.6100, L100.0100, L3890.6300, L501.9520 #### [facility] [address] [place], [address] Erythrocyte distribution width (RBC) [Ratio] 11.8 % Normal 11.6-14.6 [facility] Comment on above: Performed By: #### L 509.4005, L509.8000, L3890.6005, L506.0400, BTS, L3890.6100, L100.0100, L3890.6300, L501.9520 #### [facility] [address] [place], [address] Hematocrit (Bld) [Volume fraction] 37.2 % Normal 37-47 [facility] Comment on above: Performed By: #### L 509.4005, L509.8000, L3890.6005, L506.0400, BTS, L3890.6100, L100.0100, L3890.6300, L501.9520 #### [facility] [address] [place], [address] Hemoglobin (Bld) [Mass/Vol] 13.1 g/dL Normal 12.0-15.0 [facility] Comment on above: Performed By: #### L 509.4005, L509.8000, L3890.6005, L506.0400, BTS, L3890.6100, L100.0100, L3890.6300, L501.9520 #### [facility] [address] [place], [address] (422) IG% 0.300 Normal 0.0-0.9 [facility] Comment on above: Result Comment: IG% - Immature Granulocytes (promyelocytes, myelocytes and metamyelocytes) > 1% indicates that a LEFT SHIFT is Present. Performed By: #### L 509.4005, L509.8000, L3890.6005, L506.0400, BTS, L3890.6100, L100.0100, L3890.6300, L501.9520 #### [facility] [address] [place], [address] Lymphocytes/100 WBC (Bld) 24.0 % Normal 19-41 [facility] Comment on above: Performed By: #### L 509.4005, L509.8000, L3890.6005, L506.0400, BTS, L3890.6100, L100.0100, L3890.6300, L501.9520 #### [facility] [address] [place], [address] MCH (RBC) [Entitic mass] 30.3 pg Normal 27.0-32.0 [facility] Comment on above: Performed By: #### L 509.4005, L509.8000, L3890.6005, L506.0400, BTS, L3890.6100, L100.0100, L3890.6300, L501.9520 #### [facility] [address] [place], [address] MCHC (RBC) [Mass/Vol] 35.2 g/dL Normal 32-36 [facility] Comment on above: Performed By: #### L 509.4005, L509.8000, L3890.6005, L506.0400, BTS, L3890.6100, L100.0100, L3890.6300, L501.9520 #### [facility] [address] [place], [address] MCV (RBC) [Entitic vol] 86.1 fL Normal 81-99 [facility] Comment on above: Performed By: #### L 509.4005, L509.8000, L3890.6005, L506.0400, BTS, L3890.6100, L100.0100, L3890.6300, L501.9520 #### [facility] [address] [place], [address] Monocytes/100 WBC (Bld) 7.6 % Normal 0-10 [facility] Comment on above: Performed By: #### L 509.4005, L509.8000, L3890.6005, L506.0400, BTS, L3890.6100, L100.0100, L3890.6300, L501.9520 #### [facility] [address] [place], [address] Neutrophils/100 WBC (Bld) 66.3 % Normal 47-70 [facility] Comment on above: Performed By: #### L 509.4005, L509.8000, L3890.6005, L506.0400, BTS, L3890.6100, L100.0100, L3890.6300, L501.9520 #### [facility] [address] [place], [address] Nucleated RBC (Bld) [#/Vol] 0 10*3/uL Normal 0-5 [facility] Comment on above: Performed By: #### L 509.4005, L509.8000, L3890.6005, L506.0400, BTS, L3890.6100, L100.0100, L3890.6300, L501.9520 #### [facility] [address] [place], [address] Platelet mean volume (Bld) [Entitic vol] 9.2 fL Normal 6.2-12.0 [facility] Comment on above: Performed By: #### L 509.4005, L509.8000, L3890.6005, L506.0400, BTS, L3890.6100, L100.0100, L3890.6300, L501.9520 #### [facility] [address] [place] [place], [address] Platelets (Bld) [#/Vol] 308 10*3/uL Normal 150-450 [facility] Comment on above: Performed By: #### L 509.4005, L509.8000, L3890.6005, L506.0400, BTS, L3890.6100, L100.0100, L3890.6300, L501.9520 #### [facility] [address] [place], [address] RBC (Bld) [#/Vol] 4.32 10*6/uL Normal 4.2-5.4 [facility] Comment on above: Performed By: #### L 509.4005, L509.8000, L3890.6005, L506.0400, BTS, L3890.6100, L100.0100, L3890.6300, L501.9520 #### [facility] [address] [place], [place], [id number] RDW SD 37.0 fl Normal 35.1-43.9 [facility] Comment on above: Performed By: #### L 509.4005, L509.8000, L3890.6005, L506.0400, BTS, L3890.6100, L100.0100, L3890.6300, L501.9520 #### [facility] [address] [place], [place], [id number] WBC (Bld) [#/Vol] 7.2 10*3/uL Normal 4.4-11.0 [facility] Comment on above: Performed By: #### L 509.4005, L509.8000, L3890.6005, L506.0400, BTS, L3890.6100, L100.0100, L3890.6300, L501.9520 #### [facility] [address] [place], [address] Direct serum free thyroxine (FT4) measurementOrdered By: Justina Guido on 06-17-2024 Free T4 [Mass/Vol] 1.12 ng/dL 0.76-1.46 [facility] Eosinophil percentageOrdered By: Justina Guido on 06-17-2024 Eosinophils/100 WBC (Bld) 1.2 % 0-5 [facility] Erythrocyte distribution wid th ratioOrdered By: Justina Guido on 06-17-2024 Erythrocyte distribution width (RBC) [Ratio] 11.8 % 11.6-14.6 [facility] Erythrocyte distribution wid th standard deviationOrdered By: Justina Guido on 06-17-2024 Erythrocyte distribution width (RBC) [Entitic vol] 37.0 fL 35.1-43.9 [facility] HIV - WCHon 06-17-2024 HIV Non-Reactive Normal Nonreactive [facility] Comment on above: Order Comment: Reaso n for Exam: Performed By: #### L 509.4005, L509.8000, L3890.6005, L506.0400, BTS, L3890.6100, L100.0100, L3890.6300, L501.9520 ####[facility] [id number] [place], [address] HIV 1+2 Ab+HIV1 p24 Ag IA Ql Ordered By: Justina Guido on 06-17-2024 HIV (1&2) Antibody Non-Reactive Nonreactive [facility] Hematocrit Auto (Bld) [Volum e fraction]Ordered By: Justina Guido on 06-17-2024 Hematocrit (Bld) [Volume fraction] 37.2 % 37-47 [facility] Hemoglobin measurementOrdere d By: Justina Guido on 06-17-2024 Hemoglobin (Bld) [Mass/Vol] 13.1 g/dL 12.0-15.0 [facility] Hepatitis B Surface Antigeno n 06-17-2024 HEP B Surf Ag Non-[facility]active [facility] Comment on above: Order Comment: Reaso n for Exam: Performed By: #### L 509.4005, L509.8000, L3890.6005, L506.0400, BTS, L3890.6100, L100.0100, L3890.6300, L501.9520 ####[facility] [id number] [place], [address] Hepatitis B surface antigen detectionOrdered By: Justina Guido on 06-17-2024 Hepatitis B Surface Antigen Non-Reactive Nonreactive [facility] Hepatitis C Antibodyon 06-17 Hepatitis C AB Non-Reactive [facility] Comment on above: Order Comment: Reaso n for Exam: Result Comment: Non Reactive: < 0.8 Equivocal: >/= 0.8 to < 1.0 Reactive: >/= 1.0 The CDC requires that a reactive/equivocal HCV antibody result be sent out for confirmation. HCV Quant by PCR testing. Performed By: #### L 509.4005, L509.8000, L3890.6005, L506.0400, BTS, L3890.6100, L100.0100, L3890.6300, L501.9520 ####[facility] [id number] [place], [address] Hepatitis C virus antibody a ssayOrdered By: Justina Guido on 06-17-2024 Hepatitis C Antibody Non-Reactive Nonreactive [facility] Comment on above: Non Reactive: < 0.8 Equivocal: >/= 0.8 to < 1.0 Reactive: >/= 1.0The CDC requires that a reactive/equivocal HCV antibody result be sent out for confirmation. HCV Quant by PCR testing. Immature granulocytes/100 WB C Auto (Bld)Ordered By: Justina Guido on 06-17-2024 Immature granulocytes/100 WBC (Bld) 0.300 % 0.0-0.9 [facility] Comment on above: IG% - Immature Granu locytes (promyelocytes, myelocytes and metamyelocytes) > 1% indicates that a LEFT SHIFT is Present. L509.8000on 06-17-2024 Syphilis Abs Non-Reactive Normal [facility] Comment on above: Order Comment: Reaso n for Exam: Performed By: #### L 509.4005, L509.8000, L3890.6005, L506.0400, BTS, L3890.6100, L100.0100, L3890.6300, L501.9520 #### [facility] [address] [place], [address] Lymphocytes Auto (Unsp spec) [#/Vol]Ordered By: Justina Guido on 06-17-2024 Lymphocytes (Bld) [#/Vol] 1.73 10*3/uL 0.83-4.51 [facility] Lymphocytes/100 WBC Auto (Un sp spec)Ordered By: Justina Guido on 06-17-2024 Lymphocytes/100 WBC (Bld) 24.0 % 19-41 [facility] MCV (mean corpuscular volume ) determinationOrdered By: Justina Guido on 06-17-2024 MCV (RBC) [Entitic vol] 86.1 fL 81-99 [facility] Mean corpuscular hemoglobin (MCH) determinationOrdered By: Justina Guido on 06-17-2024 MCH (RBC) [Entitic mass] 30.3 pg 27.0-32.0 [facility] Mean corpuscular hemoglobin concentration (MCHC) determinationOrdered By: Justina Guido on 06-17-2024 MCHC (RBC) [Mass/Vol] 35.2 g/dL 32-36 [facility] Mean platelet volume determi nationOrdered By: Justina Guido on 06-17-2024 Platelet mean volume (Bld) [Entitic vol] 9.2 fL 6.2-12.0 [facility] Monocyte percentageOrdered B y: Justina Guido on 06-17-2024 Monocytes/100 WBC (Bld) 7.6 % 0-10 [facility] Neisseria gonorrhoeae nuclei c acid detection by amplified probe techniqueOrdered By: Justina Guido on 06-17-2024 N. gonorrhoeae DNA RORY+probe Ql (Unsp spec) Negative Negative [facility] Comment on above: Performed at: =[address] [id number] Director: Isis Aranda MD, Phone: [phone] Neutrophil percentageOrdered By: Justina Guido on 06-17-2024 Neutrophils/100 WBC (Bld) 66.3 % 47-70 [facility] Nucleated red blood cell per centageOrdered By: Justina Guido on 06-17-2024 Nucleated RBC/100 WBC (Bld) [Ratio] 0 % 0-5 [facility] [facility] Bakery Team Member Office Visit Reporton 06-17-2024 Bakery Team Member Office Visit Report [facility] [address], [address] [place] [address] OFFICE VISIT Date of Service: 06/17/24 MR#: [id number] Acct: [id number] Name: CECY GALLEGOS Rep #: [id number] : 1995 Provider: CARON gomez Age/Sex: 29/F [place] [facility] [place]: Signed Intake Vital Signs 01/29/24 10:17 06/17/24 08:47 Height 5 ft 3 in 5 ft 3 in Weight: 128 lb 4 oz BMI 22.7 BP 127/84 H Intake Visit Reasons: New OB, LMP 04/15, GERMAN 01/20/25 Pattern Painter Required: No Is patient in pain?: No Feel stressed/tense/nervous/an xious/difficulty sleeping: not at all Allergies banana Allergy (Mild, Verified 06/17/24 08:50) RASH Latex, Natural Rubber Allergy (Mild, Verified 06/17/24 08:50) Rash Medications ???Medication ???Instructions ???Recorded ???Confirmed ???Type vitamin#30 30 mg iron-10 1 cap PO DAILY 04/07/19 01/29/24 History mg iron-folic acid 1 mg-omg3 capsule levothyroxine 50 mcg tablet 50 mcg PO DAILY #90 tabs 11/06/23 01/29/24 Rx aspirin 81 mg tablet,delayed 81 mg PO DAILY 12/22/23 01/29/24 History release (Adult Aspirin Regimen) progesterone micronized 200 mg 200 mg vaginal QHS 30 days #30 caps 05/17/24 Rx capsule (Prometrium) Last Menstrual Period: 04/15/24 Zika: Zika virus screening: Negative : No Have you fallen in the past year?: No PFSH PFSH Medical History History of miscarriage History of miscarriage, currently Early stage of Supervision of high-risk Non-smoker 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 SAB (spontaneous ) Thyroiditis (spontaneous vaginal delivery) Spontaneous rupture of amniotic membranes Thyroid disorder GBS (group B Streptococcus carrier), +RV culture, currently Thyroid disease affecting Supervision of high-risk Amenorrhea ASCUS of cervix with negative high risk HPV 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 Surgical History S/P dilation and curettage ( 01/11/24) H/O wisdom tooth extraction Family History Father , BLOOD CLOT BLOOD CLOT Social History adopted: No household members: family housing: house number of children: 2 current occupational status: employed 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[employer] pets and animals: Yes (Outside dog and chickens) pets and animals: dog(s) and farm animals history of recent travel: No sexually active: Yes Smoking Status: Never smoker alcohol intake: never substance use type: does not use diet: gluten free well-balanced diet: daily or most days caffeine: No eating out: 1-3 times/week during the past year weight has: remained stable what type of physical activity do you participate in: walking and yoga frequency: 1-2 times per week duration: 15-30 minutes/day femi/zoroastrianism: Congregational seatbelt use: always do you feel safe at home: Yes 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 Date Name GA/Weeks Outcome Route Bt Weight Gen Labor Lgth Anesthesia Del Locatn Provider FOB Unknown 03/2019 SAB spontaneous Unknown 07/2021 chemical Unknown 08/03/2023 miscarriage 6 spontaneous 04/29/20 River 39 live - full term 6# Male none [employer] Alexiashanda hollowayterry Tayo 07/10/22 Annabelle Rouse 39 live - full term 7#11oz Female none [employer] Hay Tayo 01/11/24 spontaneous SM Delivery Date: 04/29/20 Last Updated by: Su MULLINS Delivery Date: 07/10/22 Last Updated by: Su MULLINS IOL Delivery Date: 01/11/24 Last Updated by: GELY Boykin C HPI New OB, LMP 10/, GERMAN 01/20/25 Details: CECY GALLEGOS is a 29 year old who presents for New OB visit. OB Visit GERMAN Calculator Estimated Delivery Date Method Current WG Current Estimate 01/20/25 LMP (Certain) 9w 0d Comments: HIV: Urine Culture: Sequential Screen: NIPT Screen: Estimated Due Date: 01/20/25 Expected Delivery Route/Plan Labor Preferences- CB/BF classes: [] labor support person: [] labor intervention preferences: [] pain management options preferred: [] cut cord/dad catch: [] : [] PP control planned: [] discussed possible routes of delivery and associated risks: [] special requests: [] (more content not included)... Normal [facility] Platelet countOrdered By: Suzan Guido on 06-17-2024 Platelets (Bld) [#/Vol] 308 10*3/uL 150-450 [facility] RBC Auto (Bld) [#/Vol]Ordere d By: Justina Guido on 06-17-2024 RBC (Bld) [#/Vol] 4.32 10*6/uL 4.2-5.4 [facility] Rubella IgGon 06-17-2024 Rubella IgG Reactive Normal Nonreactive [facility] Comment on above: Order Comment: Reaso n for Exam: Result Comment: Anti body Results Interpretation of Immune Status Non Reactive Presumed Non-Immune Equivocal Equivocal Reactive Presumed Immune Performed By: #### L 509.4005, L509.8000, L3890.6005, L506.0400, BTS, L3890.6100, L100.0100, L3890.6300, L501.9520 #### [facility] [address] [place], [address] Rubella immune status IgGOrd ered By: Justina Guido on 06-17-2024 Rubella IgG Antibody Reactive Nonreactive [facility] Comment on above: Antibody Results Int erpretation of Immune Status Non Reactive Presumed Non-Immune Equivocal Equivocal Reactive Presumed Immune T4 Free Directon 06-17-2024 T4 FREE DIRECT 1.12 ng/dL Normal 0.76-1.46 [facility] Comment on above: Performed By: #### L 509.4005, L509.8000, L3890.6005, L506.0400, BTS, L3890.6100, L100.0100, L3890.6300, L501.9520 #### [facility] [address] [place], [place], [id number] TPO Ab QnOrdered By: Justina Guido on 06-17-2024 Thyroid Peroxidase Antibodies 197 IU/mL High 0-34 [facility] TSH QnOrdered By: Justina trotter on 06-17-2024 Thyroid Stimulating Hormone (TSH) 1.420 uIU/mL 0.358-3.740 [facility] Thyroglobulin Ab serumOrdere d By: Justina Guido on 06-17-2024 Thyroglobulin Antibody < 1.0 IU/mL 0.0-0.9 [facility] Comment on above: Thyroglobulin Antibo dy measured by Chidi CoulterMethodologyIt should be noted that the presence of thyroglobulinantibodies may not be pathogenic nor diagnostic, especiallyat very low levels. The assay running rigger has found thatfour percent of individuals without evidence of thyroiddisease or autoimmunity will have positive TgAb levels upto 4 IU/mL.Performed at: [facility] [id number] Director: Nicolas Maldonado PhD, Phone: [phone] Thyroid Stim Hormone (TSH)on 06-17-2024 TSH 1.420 uIU/mL Normal 0.358-3.740 [facility] Comment on above: Performed By: #### L 509.4005, L509.8000, L3890.6005, L506.0400, BTS, L3890.6100, L100.0100, L3890.6300, L501.9520 #### [facility] [address] [place], [address] Treponema sp Ab Ql (S)Ordere d By: Justina Guido on 06-17-2024 Syphilis Total Antibody Non-Reactive [facility] Type AND Screenon 06-17-2024 ABO and Rh group Nom (Bld) Blood group A Rh(D) positive Normal [facility] Comment on above: Order Comment: PN Performed By: #### L 509.4005, L509.8000, L3890.6005, L506.0400, BTS, L3890.6100, L100.0100, L3890.6300, L501.9520 #### [facility] [address] [place], [address] Urine cultureOrdered By: Katie Guido on 06-17-2024 Bacteria identified Cx Nom (U) Culture exhibits no growth. [facility] White blood cell (WBC) count Ordered By: Justina Guido on 06-17-2024 WBC (Bld) [#/Vol] 7.2 10*3/uL 4.4-11.0 [facility] HCG ( test) QlOrder ed By: Justina Guido on 05-25-2024 Human Chorionic Gonadotropin, Quant 08656 mIU/mL High <4 [facility] Comment on above: hCG levels with Gest ational AgeGestational Age hCG mIU/mL (IU/L)0.2 - 1 week 5 - 501-2 weeks 50 - 5002-3 weeks 100 - 74686-7 weeks 500 - 209217-7 weeks 1000 - 150025-4 weeks 97731 - 100,0006-8 weeks 24033 - 200,0002-3 months 21116 - 100,000 hCG Titer Quant., Serumon HCG QUANT. 60538 mIU/mL High 1-3 [facility] Comment on above: Result Comment: hCG levels with Gestational Age Gestational Age hCG mIU/mL (IU/L) 0.2 - 1 week 5 - 50 1-2 weeks 50 - 500 2-3 weeks 100 - 5000 3-4 weeks 500 - 60078 4-5 weeks 1000 - 88372 5-6 weeks 48089 - 100,000 6-8 weeks 08675 - 200,000 2-3 months 94685 - 100,000 Performed By: #### L 509.4005, L509.8000, L3890.6005, L506.0400, BTS, L3890.6100, L100.0100, L3890.6300, L501.9520 #### [facility] [address] [place], [address] HCG ( test) QlOrder ed By: Justina Guido on 05-23-2024 Human Chorionic Gonadotropin, Quant 6957 mIU/mL High <4 [facility] Comment on above: hCG levels with Gest ational AgeGestational Age hCG mIU/mL (IU/L)0.2 - 1 week 5 - 501-2 weeks 50 - 5002-3 weeks 100 - 13328-0 weeks 500 - 555869-7 weeks 1000 - 460878-9 weeks 43588 - 100,0006-8 weeks 49545 - 200,0002-3 months 35009 - 100,000 hCG Titer Quant., Serumon HCG QUANT. 6957 mIU/mL High 1-3 [facility] Comment on above: Result Comment: hCG levels with Gestational Age Gestational Age hCG mIU/mL (IU/L) 0.2 - 1 week 5 - 50 1-2 weeks 50 - 500 2-3 weeks 100 - 5000 3-4 weeks 500 - 93398 4-5 weeks 1000 - 28884 5-6 weeks 85407 - 100,000 6-8 weeks 79332 - 200,000 2-3 months 97189 - 100,000 Performed By: #### L 700.8000 ####[facility] [address] [place], [place], [id number] Anticardiolipin IgG, IgMon ANTICARDIO IgG < 9 Normal 0-14 [facility] Comment on above: Result Comment: Nega tive: <15 Indeterminate: 15 - 20 Low-Med Positive: >20 - 80 High Positive: >80 Performed By: #### L 509.4005, L509.8000, L3890.6005, L506.0400, BTS, L3890.6100, L100.0100, L3890.6300, L501.9520 #### [facility] [address] [place], [address] Anticardio.IgM < 9 Normal 0-12 [facility] Comment on above: Result Comment: Nega tive: <13 Indeterminate: 13 - 20 Low-Med Positive: >20 - 80 High Positive: >80 Performed at: [facility] [address] [id number] Cardiology Specialist: Jojo Montanez MD, Phone: [phone] Performed at: [facility] [address] [id number] Cardiology Specialist: Nicolas Maldonado PhD, Phone: [phone] Performed By: #### L 509.4005, L509.8000, L3890.6005, L506.0400, BTS, L3890.6100, L100.0100, L3890.6300, L501.9520 #### [facility] [address] [place], [place], [id number] (177) Beta-2 Glycoprot IgG, A, 05-07-2024 B2 GLYCO I IGA <9 Normal 0-25 [facility] Comment on above: Result Comment: Resu lt Units: GPI IgA units The reference interval reflects a 3SD or 99th percentile interval, which is thought to represent a potentially clinically significant result in accordance with the International Consensus Statement on the classification criteria for definitive antiphospholipid syndrome (APS). J Thromb Haem 2006;4:295-306. Performed By: #### L 509.4005, L509.8000, L3890.6005, L506.0400, BTS, L3890.6100, L100.0100, L3890.6300, L501.9520 #### [facility] [address] [place], [address] (679) B2 GLYCO I IGG <9 Normal 0-20 [facility] Comment on above: Result Comment: Resu lt Units: GPI IgG units The reference interval reflects a 3SD or 99th percentile interval, which is thought to represent a potentially clinically significant result in accordance with the International Consensus Statement on the classification criteria for definitive antiphospholipid syndrome (APS). J Thromb Haem 2006;4:295-306. Performed By: #### L 509.4005, L509.8000, L3890.6005, L506.0400, BTS, L3890.6100, L100.0100, L3890.6300, L501.9520 #### [facility] [address] [place], [place], [id number] (962) B2 GLYCO I IGM <9 Normal 0-32 [facility] Comment on above: Result Comment: Resu lt Units: GPI IgM units The reference interval reflects a 3SD or 99th percentile interval, which is thought to represent a potentially clinically significant result in accordance with the International Consensus Statement on the classification criteria for definitive antiphospholipid syndrome (APS). J Thromb Haem 2006;4:295-306. Performed By: #### L 509.4005, L509.8000, L3890.6005, L506.0400, BTS, L3890.6100, L100.0100, L3890.6300, L501.9520 #### [facility] [address] [place], [place], [id number] Lupus Anticoagulant Compon 1 aPTT Coag (Bld) [Time] 35.7 s Normal 0.0-43.5 [facility] Comment on above: Performed By: #### L 509.4005, L509.8000, L3890.6005, L506.0400, BTS, L3890.6100, L100.0100, L3890.6300, L501.9520 #### [facility] [address] [place], [place], [id number] DILUTE PT (dPT) 37.5 sec Normal 0.0-47.6 [facility] Comment on above: Performed By: #### L 509.4005, L509.8000, L3890.6005, L506.0400, BTS, L3890.6100, L100.0100, L3890.6300, L501.9520 #### [facility] [address] [place], [place], [id number] dPT Conf. Ratio 0.97 Ratio Normal 0.00-1.34 [facility] Comment on above: Performed By: #### L 509.4005, L509.8000, L3890.6005, L506.0400, BTS, L3890.6100, L100.0100, L3890.6300, L501.9520 #### [facility] [address] [place], [place], [id number] DRVVT 33.4 sec Normal 0.0-47.0 [facility] Comment on above: Performed By: #### L 509.4005, L509.8000, L3890.6005, L506.0400, BTS, L3890.6100, L100.0100, L3890.6300, L501.9520 #### [facility] [address] [place], [place], [id number] Interpretation Comment: Normal . [facility] Comment on above: Result Comment: No l upus anticoagulant was detected. Performed By: #### L 509.4005, L509.8000, L3890.6005, L506.0400, BTS, L3890.6100, L100.0100, L3890.6300, L501.9520 #### [facility] [address] [place], [address] THROMBIN TIME 19.6 sec Normal 0.0-23.0 [facility] Comment on above: Performed By: #### L 509.4005, L509.8000, L3890.6005, L506.0400, BTS, L3890.6100, L100.0100, L3890.6300, L501.9520 #### [facility] [address] [place], [place], [id number] CBC W/Diff, Automatedon 10-2 Absolute Lymph 1.49 X10 3/uL Normal 0.83-4.51 [facility] Comment on above: Performed By: #### L 509.4005, L509.8000, L3890.6005, L506.0400, BTS, L3890.6100, L100.0100, L3890.6300, L501.9520 #### [facility] [address] [place], [place], [id number] Absolute Neut 2.6 X10 3/uL Normal 2.0-7.7 [facility] Comment on above: Performed By: #### L 509.4005, L509.8000, L3890.6005, L506.0400, BTS, L3890.6100, L100.0100, L3890.6300, L501.9520 #### [facility] [address] [place], [address] Basophils/100 WBC (Bld) 0.6 % Normal 0-1 [facility] Comment on above: Performed By: #### L 509.4005, L509.8000, L3890.6005, L506.0400, BTS, L3890.6100, L100.0100, L3890.6300, L501.9520 #### [facility] [address] [place], [address] Eosinophils/100 WBC (Bld) 4.2 % Normal 0-5 [facility] Comment on above: Performed By: #### L 509.4005, L509.8000, L3890.6005, L506.0400, BTS, L3890.6100, L100.0100, L3890.6300, L501.9520 #### [facility] [address] [place], [address] Erythrocyte distribution width (RBC) [Ratio] 11.9 % Normal 11.6-14.6 [facility] Comment on above: Performed By: #### L 509.4005, L509.8000, L3890.6005, L506.0400, BTS, L3890.6100, L100.0100, L3890.6300, L501.9520 #### [facility] [address] [place], [address] Hematocrit (Bld) [Volume fraction] 37.2 % Normal 37-47 [facility] Comment on above: Performed By: #### L 509.4005, L509.8000, L3890.6005, L506.0400, BTS, L3890.6100, L100.0100, L3890.6300, L501.9520 #### [facility] [address] [place], [address] Hemoglobin (Bld) [Mass/Vol] 12.8 g/dL Normal 12.0-15.0 [facility] Comment on above: Performed By: #### L 509.4005, L509.8000, L3890.6005, L506.0400, BTS, L3890.6100, L100.0100, L3890.6300, L501.9520 #### [facility] [address] [place], [address] IG% 0.200 Normal 0.0-0.9 [facility] Comment on above: Result Comment: IG% - Immature Granulocytes (promyelocytes, myelocytes and metamyelocytes) > 1% indicates that a LEFT SHIFT is Present. Performed By: #### L 509.4005, L509.8000, L3890.6005, L506.0400, BTS, L3890.6100, L100.0100, L3890.6300, L501.9520 #### [facility] [address] [place], [address] Lymphocytes/100 WBC (Bld) 31.4 % Normal 19-41 [facility] Comment on above: Performed By: #### L 509.4005, L509.8000, L3890.6005, L506.0400, BTS, L3890.6100, L100.0100, L3890.6300, L501.9520 #### [facility] [address] [place], [address] MCH (RBC) [Entitic mass] 30.3 pg Normal 27.0-32.0 [facility] Comment on above: Performed By: #### L 509.4005, L509.8000, L3890.6005, L506.0400, BTS, L3890.6100, L100.0100, L3890.6300, L501.9520 #### [facility] [address] [place], [address] MCHC (RBC) [Mass/Vol] 34.4 g/dL Normal 32-36 [facility] Comment on above: Performed By: #### L 509.4005, L509.8000, L3890.6005, L506.0400, BTS, L3890.6100, L100.0100, L3890.6300, L501.9520 #### [facility] [address] [place], [address] MCV (RBC) [Entitic vol] 87.9 fL Normal 81-99 [facility] Comment on above: Performed By: #### L 509.4005, L509.8000, L3890.6005, L506.0400, BTS, L3890.6100, L100.0100, L3890.6300, L501.9520 #### [facility] [address] [place], [address] Monocytes/100 WBC (Bld) 8.6 % Normal 0-10 [facility] Comment on above: Performed By: #### L 509.4005, L509.8000, L3890.6005, L506.0400, BTS, L3890.6100, L100.0100, L3890.6300, L501.9520 #### [facility] [address] [place], [address] Neutrophils/100 WBC (Bld) 55.0 % Normal 47-70 [facility] Comment on above: Performed By: #### L 509.4005, L509.8000, L3890.6005, L506.0400, BTS, L3890.6100, L100.0100, L3890.6300, L501.9520 #### [facility] [address] [place], [address] Nucleated RBC (Bld) [#/Vol] 0 10*3/uL Normal 0-5 [facility] Comment on above: Performed By: #### L 509.4005, L509.8000, L3890.6005, L506.0400, BTS, L3890.6100, L100.0100, L3890.6300, L501.9520 #### [facility] [address] [place], [address] Platelet mean volume (Bld) [Entitic vol] 9.2 fL Normal 6.2-12.0 [facility] Comment on above: Performed By: #### L 509.4005, L509.8000, L3890.6005, L506.0400, BTS, L3890.6100, L100.0100, L3890.6300, L501.9520 #### [facility] [address] [place], [place], [id number] (320) Platelets (Bld) [#/Vol] 260 10*3/uL Normal 150-450 [facility] Comment on above: Performed By: #### L 509.4005, L509.8000, L3890.6005, L506.0400, BTS, L3890.6100, L100.0100, L3890.6300, L501.9520 #### [facility] [address] [place], [place], [id number] (825) RBC (Bld) [#/Vol] 4.23 10*6/uL Normal 4.2-5.4 [facility] Comment on above: Performed By: #### L 509.4005, L509.8000, L3890.6005, L506.0400, BTS, L3890.6100, L100.0100, L3890.6300, L501.9520 #### [facility] [address] [place], [address] RDW SD 38.0 fl Normal 35.1-43.9 [facility] Comment on above: Performed By: #### L 509.4005, L509.8000, L3890.6005, L506.0400, BTS, L3890.6100, L100.0100, L3890.6300, L501.9520 #### [facility] [address] [place], [address] WBC (Bld) [#/Vol] 4.7 10*3/uL Normal 4.4-11.0 [facility] Comment on above: Performed By: #### L 509.4005, L509.8000, L3890.6005, L506.0400, BTS, L3890.6100, L100.0100, L3890.6300, L501.9520 #### [facility] [address] [place], [address] [facility] 05-04-2024 Albumin [Mass/Vol] 3.9 g/dL Normal 3.2-5.0 [facility] Comment on above: Performed By: #### L 509.4005, L509.8000, L3890.6005, L506.0400, BTS, L3890.6100, L100.0100, L3890.6300, L501.9520 #### [facility] [address] [place], [address] Albumin/Globulin [Mass ratio] 1.2 {ratio} Normal 0.9-2.4 [facility] Comment on above: Performed By: #### L 509.4005, L509.8000, L3890.6005, L506.0400, BTS, L3890.6100, L100.0100, L3890.6300, L501.9520 #### [facility] [address] [place], [address] ALK P 50 U/L Normal 45-117 [facility] Comment on above: Performed By: #### L 509.4005, L509.8000, L3890.6005, L506.0400, BTS, L3890.6100, L100.0100, L3890.6300, L501.9520 #### [facility] [address] [place], [address] ALT [Catalytic activity/Vol] 26 U/L Normal 13-56 [facility] Comment on above: Performed By: #### L 509.4005, L509.8000, L3890.6005, L506.0400, BTS, L3890.6100, L100.0100, L3890.6300, L501.9520 #### [facility] [address] [place], [address] AST [Catalytic activity/Vol] 20 U/L Normal 15-37 [facility] Comment on above: Performed By: #### L 509.4005, L509.8000, L3890.6005, L506.0400, BTS, L3890.6100, L100.0100, L3890.6300, L501.9520 #### [facility] [address] [place], [address] Bilirubin [Mass/Vol] 0.70 mg/dL Normal 0.20-1.00 [facility] Comment on above: Result Comment: For patients on eltrombopag therapy, use of Dimension Conley TBIL is not recommended. Performed By: #### L 509.4005, L509.8000, L3890.6005, L506.0400, BTS, L3890.6100, L100.0100, L3890.6300, L501.9520 #### [facility] [address] [place], [address] BUN/CRE 13.9 RATIO Normal 10-20 [facility] Comment on above: Performed By: #### L 509.4005, L509.8000, L3890.6005, L506.0400, BTS, L3890.6100, L100.0100, L3890.6300, L501.9520 #### [facility] [address] [place], [address] CA,Total 9.0 mg/dL Normal 8.5-10.1 [facility] Comment on above: Performed By: #### L 509.4005, L509.8000, L3890.6005, L506.0400, BTS, L3890.6100, L100.0100, L3890.6300, L501.9520 #### [facility] [address] [place], [address] Chloride [Moles/Vol] 108 mmol/L High 98-107 [facility] Comment on above: Performed By: #### L 509.4005, L509.8000, L3890.6005, L506.0400, BTS, L3890.6100, L100.0100, L3890.6300, L501.9520 #### [facility] [address] [place], [address] CO2 [Moles/Vol] 27.0 mmol/L Normal 21.0-32.0 [facility] Comment on above: Performed By: #### L 509.4005, L509.8000, L3890.6005, L506.0400, BTS, L3890.6100, L100.0100, L3890.6300, L501.9520 #### [facility] [address] [place], [address] Creatinine [Mass/Vol] 0.58 mg/dL Normal 0.55-1.02 [facility] Comment on above: Result Comment: The validity of the calculated GFR GFRAA in patients over 70 years has not been determined. Clinical correlation is essential. Performed By: #### L 509.4005, L509.8000, L3890.6005, L506.0400, BTS, L3890.6100, L100.0100, L3890.6300, L501.9520 #### [facility] [address] [place], [address] EST GFR - AA 157 mL/min Normal >60 [facility] Comment on above: Result Comment: Afri can Luxembourger GFR Calc Performed By: #### L 509.4005, L509.8000, L3890.6005, L506.0400, BTS, L3890.6100, L100.0100, L3890.6300, L501.9520 #### [facility] [address] [place], [address] GAP 6 Normal 5-15 [facility] Comment on above: Performed By: #### L 509.4005, L509.8000, L3890.6005, L506.0400, BTS, L3890.6100, L100.0100, L3890.6300, L501.9520 #### [facility] [address] [place], [address] GFR/1.73 sq M.predicted among non-blacks MDRD (S/P/Bld) [Vol rate/Area] 130 mL/min/{1.73_m2} Normal >60 [facility] Comment on above: Result Comment: Non- GFR Calc Performed By: #### L 509.4005, L509.8000, L3890.6005, L506.0400, BTS, L3890.6100, L100.0100, L3890.6300, L501.9520 #### [facility] [address] [place], [address] Globulin (S) [Mass/Vol] 3.3 g/dL Normal 2.2-4.2 [facility] Comment on above: Performed By: #### L 509.4005, L509.8000, L3890.6005, L506.0400, BTS, L3890.6100, L100.0100, L3890.6300, L501.9520 #### [facility] [address] [place], [address] Glucose [Mass/Vol] 74 mg/dL Normal 74-106 [facility] Comment on above: Performed By: #### L 509.4005, L509.8000, L3890.6005, L506.0400, BTS, L3890.6100, L100.0100, L3890.6300, L501.9520 #### [facility] [address] [place], [address] Potassium [Moles/Vol] 3.6 mmol/L Normal 3.5-5.1 [facility] Comment on above: Performed By: #### L 509.4005, L509.8000, L3890.6005, L506.0400, BTS, L3890.6100, L100.0100, L3890.6300, L501.9520 #### [facility] [address] [place], [address] Sodium [Moles/Vol] 140 mmol/L Normal 136-145 [facility] Comment on above: Performed By: #### L 509.4005, L509.8000, L3890.6005, L506.0400, BTS, L3890.6100, L100.0100, L3890.6300, L501.9520 #### [facility] [address] [place], [address] T PROT 7.2 g/dL Normal 6.4-8.2 [facility] Comment on above: Performed By: #### L 509.4005, L509.8000, L3890.6005, L506.0400, BTS, L3890.6100, L100.0100, L3890.6300, L501.9520 #### [facility] [address] [place], [address] Urea nitrogen [Mass/Vol] 8 mg/dL Normal 7-18 [facility] Comment on above: Performed By: #### L 509.4005, L509.8000, L3890.6005, L506.0400, BTS, L3890.6100, L100.0100, L3890.6300, L501.9520 #### [facility] [address] [place], [address] Hemoglobin A1con 05-04-2024 HbA1c (Bld) [Mass fraction] 5.1 % Normal 3.8-5.6 [facility] Comment on above: Result Comment: Norm al < 5.7 % Prediabetic 5.7 - 6.4 % Diabetic >or= 6.5 % Please note range changes. Performed By: #### L 509.4005, L509.8000, L3890.6005, L506.0400, BTS, L3890.6100, L100.0100, L3890.6300, L501.9520 #### [facility] [address] [place], [address] Lipid Profileon 05-04-2024 Cholesterol [Mass/Vol] 156 mg/dL Normal 200 [facility] Comment on above: Result Comment: <200 mg/dL Desirable 200-240 mg/dL Borderline >240 mg/dL High Risk Performed By: #### L 509.4005, L509.8000, L3890.6005, L506.0400, BTS, L3890.6100, L100.0100, L3890.6300, L501.9520 #### [facility] [address] [place], [address] Cholesterol in HDL [Mass/Vol] 52 mg/dL Normal [facility] Comment on above: Result Comment: The drugs N-Acetylcysteine and Metamizole may falsely depress this assay. Reference Range HDL <40 mg/dL Low HDL Cholesterol HDL >or= 60 mg/dL High HDL Cholesterol Performed By: #### L 509.4005, L509.8000, L3890.6005, L506.0400, BTS, L3890.6100, L100.0100, L3890.6300, L501.9520 #### [facility] [address] [place], [address] Cholesterol in LDL [Mass/Vol] 89 mg/dL Normal 0-130 [facility] Comment on above: Performed By: #### L 509.4005, L509.8000, L3890.6005, L506.0400, BTS, L3890.6100, L100.0100, L3890.6300, L501.9520 #### [facility] [address] [place], [address] Cholesterol in VLDL [Mass/Vol] 15 mg/dL Normal 5-40 [facility] Comment on above: Performed By: #### L 509.4005, L509.8000, L3890.6005, L506.0400, BTS, L3890.6100, L100.0100, L3890.6300, L501.9520 #### [facility] [address] [place], [address] Triglyceride [Mass/Vol] 76 mg/dL Normal [facility] Comment on above: Result Comment: The drugs N-Acetylcysteine and Metamizole may falsely depress this assay. Serum Triglycerides Reference Interval Normal <150 mg/dL Borderline high 150 - 199 mg/dL High 200 - 499 mg/dL Very High > or = 500 mg/dL Performed By: #### L 509.4005, L509.8000, L3890.6005, L506.0400, BTS, L3890.6100, L100.0100, L3890.6300, L501.9520 #### [facility] [address] [place], [address] T4 Free Directon 05-04-2024 T4 FREE DIRECT 0.97 ng/dL Normal 0.76-1.46 [facility] Comment on above: Performed By: #### L 509.4005, L509.8000, L3890.6005, L506.0400, BTS, L3890.6100, L100.0100, L3890.6300, L501.9520 #### [facility] [address] [place], [address] Thyroid Stim Hormone (TSH)on 05-04-2024 TSH 1.460 uIU/mL Normal 0.358-3.740 [facility] Comment on above: Performed By: #### L 509.4005, L509.8000, L3890.6005, L506.0400, BTS, L3890.6100, L100.0100, L3890.6300, L501.9520 #### [facility] [address] [place], [place], [address] Bakery Team Member Office Visit Reporton 01-29-2024 Bakery Team Member Office Visit Report [facility] [address] [place] [address] OFFICE VISIT Date of Service: 01/29/24 MR#: [id number] Acct: [id number] Name: CECY GALLEGOS Rep #: [id number] : 1995 Provider: Dr. Keshia Wells DO Age/Sex: 28/F [place] [facility] [place]: Signed Intake Vital Signs 11/06/23 15:37 01/11/24 12:40 01/29/24 10:15 01/29/24 10:17 Height 5 ft 3 in 5 ft 3 in 5 ft 3 in 5 ft 3 in Weight: 126 lb 6 oz BMI 22.4 BP 127/74 H Intake Visit Reasons: D C Pattern Painter Required: No Is patient in pain?: No Allergies banana Allergy (Mild, Verified 01/29/24 10:14) RASH Latex, Natural Rubber Allergy (Mild, Verified 01/29/24 10:14) Rash Medications ???Medication ???Instructions ???Recorded ???Confirmed ???Type vitamin#30 30 mg iron-10 1 cap PO DAILY 04/07/19 01/29/24 History mg iron-folic acid 1 mg-omg3 capsule levothyroxine 50 mcg tablet 50 mcg PO DAILY #90 tabs 11/06/23 01/29/24 Rx aspirin 81 mg tablet,delayed 81 mg PO DAILY 12/22/23 01/29/24 History release (Adult Aspirin Regimen) Post menopausal: No Patient : No : No [facility] Medical History (Updated 01/29/24 @ 10:[address] 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 SAB (spontaneous ) Thyroiditis (spontaneous vaginal delivery) Spontaneous rupture of amniotic membranes Thyroid disorder GBS (group B Streptococcus carrier), +RV culture, currently Thyroid disease affecting Supervision of high-risk Amenorrhea ASCUS of cervix with negative high risk HPV 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 Surgical History (Updated 01/29/24 @ 10:20 by Ernestine Rene) S/P dilation and curettage ( 01/11/24) H/O wisdom tooth extraction Family History Father , BLOOD CLOT BLOOD CLOT Social History adopted: No household members: family housing: house number of children: 2 current occupational status: employed 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[employer] pets and animals: Yes (Outside dog and chickens) pets and animals: dog(s) and farm animals history of recent travel: No sexually active: Yes Smoking Status: Never smoker alcohol intake: never substance use type: does not use well-balanced diet: daily or most days caffeine: No eating out: rarely or never during the past year weight has: decreased > 10 lbs what type of physical activity do you participate in: walking frequency: 1-2 times per week duration: 15-30 minutes/day femi/zoroastrianism: Congregational seatbelt use: always do you feel safe at home: Yes 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 She is tearful today and seeking answers. History 6 Elective abortions Hx Para 2 Spontaneous abortions 4 Hx # Term Pregnancies Ectopic pregnancies Hx # Pregnancies Multiple births # of living children 2 Past Pregnancies Del. Date Name GA/Weeks Outcome Route Bth Weight Infant Gen Labor Lgth Anesthesia Del Locatn Provider FOB Unknown 03/2019 SAB spontaneous Unknown 07/2021 chemical Unknown 08/03/2023 miscarriage 6 spontaneous 04/29/20 [place] 39 live - full term 6# Male none [employer] Alexia hayden Tayo 07/10/22 Annabellephoebe Rouse 39 live - full term 7#11oz Female none [employer] [facility] Hay Mascout[place] 01/11/24 spontaneous SM Delivery Date: 04/29/20 Last Updated by: Su MULLINS Delivery Date: 07/10/22 Last Updated by: Su MULLINS IOL Delivery Date: 01/11/24 Last Updated by: GELY Boykin ENT ENT: Reports system reviewed and no additional complaints, except as documented Cardio Card: Reports system reviewed and no additional complaints, except as documented Resp Resp: Denies cough, dyspnea or dyspnea on exertion GI GI: Denies abdominal pain, bloating or change in bowel habits : Denies vaginal odor or vaginal pruritus Musc Musc: Reports system reviewed and no additional complaints, except as documented Exam Const General: cooperative, healthy appearing and comfortable Resp Effort Inspection: normal respiratory effort GI Palpation: soft and nontender Rectal Exam: other Extrem General: no edema Coding Level of Care Code Off vis,est,level 3 Diagnoses History of recurrent miscarriage (more content not included)... Normal [facility] Operative Reporton 4 Operative Report [facility] Medical Records Department [address] [place] [address] Operative Report 01/12/24 1341 MR#: [id number] Acct: [id number] Name: CECY GALLEGOS Rep #: [id number] : 1995 28 From: Pam Koo MD PCP: Dr. Warren Melendez MD [place] [facility] [place] [facility] Problems Associated Problem List Diagnoses (1) Missed : Report of Operation Date of Procedure: 01/12/24 Pre-Operative Diagnosis: see problem list Post-Operative Diagnosis: same Surgery/Procedure Performed:: Suction dilation and curettage Description of Surgical Findings:: no FHT present, Nonviable 7-8 weeks Surgeon: Pam Koo computer network engineer: None Type of Anesthesia: Local MAC Special Medications: none Specimen's removed: POC Drains: none Estimated Blood Loss (mL): 50 Fluids Replaced: crystalloid Description of Procedure: Patient was taken to the operating room and placed under MAC local anesthesia. She was prepped and draped in the normal sterile fashion the dorsal lithotomy position. Bladder was drained of clear urine and anterior lip of the cervix was grasped and the uterus sounded to 8cm. Cervix was progressively dilated to allow passage of a 8mm suction curette. Progressive passes were made removing the retained products of conception without complication. Sharp curettage confirmed complete removal of the retained products. All instruments were removed from the vagina and excellent hemostasis was noted and the patient was taken to recovery in stable condition. Grafts/Implants Used: none Procedure Start Time: 14:00 Procedure Stop Time: 14:20 Complications none Admit VTE Documentation VTE Present on Admission: No VTE Mechan Device Prophylaxis: SCD's Procedures Urinary/Genital 52xxx-59xxx: 92678 Trmt of incomplete Ab, any TM 01/12/24 1342 Cosigner Signature (if applicable): CC: Dr. Warren Melendez MD; Dr. Pam Koo MD Signed ADDENDUM by Dr. Pam Koo MD on 02/09/24 at 0916 Addendum correction- DOS 01/11/24 02/09/24 0916 Cosigner Signature (if applicable): cc: Dr. Warren Melendez MD; Dr. Pam Koo MD * Signed Normal [facility] Discharge Instructionon Discharge Instruction [facility] Medical Records Department [address] [place] [address] Instructions for Home/Discharge Instructions 01/11/24 1455 MR#: [id number] Acct: [id number] Name: CECY GALLEGOS Rep #: [id number] : 1995 28 From: Pam Koo MD PCP: Dr. Warren Melendez MD [place] [facility] [place]charge Instructions Diet Discharge Diet: No restrictions Activity Discharge Activity: Return to Normal Activity, May Shower and May Take a Tub Bath (after 1 week) May resume sexual activity in: 1-2 weeks Weight Bearing Status: Weight bearing as tolerated Lifting Restrictions: none Dressing / Incision Call your doctor if you observe: Fever of 101 or Higher, Using more than 1 pad per hour, Shortness of breath and Uncontrolled pain Follow Up Care Please Follow Up With: Pam Koo MD When: Call [phone] to schedule appointment. Test Results: Test results from this visit will be discussed in further detail at your follow-up appointment, if applicable. Discharge Plan Admission Attending Provider: Pam Koo Primary Care Provider: Warren Melendez Instructions Print Language: German Discharge Orders/Prescriptions Prescriptions: No Action PNV #68-diwg-dcyic acid-omega3 30 mg iron-10 mg iron-1 mg capsule 1 cap PO DAILY levothyroxine 50 mcg tablet 50 mcg PO DAILY Qty: 90 3RF aspirin [Adult Aspirin Regimen] 81 mg tablet,delayed release (DR/EC) 81 mg PO DAILY Referrals / Follow Up: Warren Melendez MD [Primary Care Provider] - Disposition Disposition (needs filled in before D/C Order can be placed): Home, Self Care 01/11/24 4514 Pam Koo MD CC: Dr. Warren Melendez MD Signed Normal [facility] H AND P Exam - OB/GYNon H&P Exam - ACTUARIAL ASSOCIATE [facility] Medical Records Department [address] [place] [address] H P Exam - ACTUARIAL ASSOCIATE 01/11/24 1308 MR#: [id number] Acct: [id number] Name: CECY GALLEGOS Rep #: [id number] : 1995 28 From: Pam Koo MD PCP: Dr. Warren Melendez MD Status:[facility] Location: [place] [address] HPI - General HPI Narrative CECY GALLEGOS, is a 28 F who presents with 8 week missed ab. no pole. 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 SAB (spontaneous ) Thyroiditis (spontaneous vaginal delivery) Spontaneous rupture of amniotic membranes Thyroid disorder GBS (group B Streptococcus carrier), +RV culture, currently Thyroid disease affecting Supervision of high-risk Amenorrhea ASCUS of cervix with negative high risk HPV 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 Home Medications ???Medication ???Instructions ???Recorded ???Last Taken ???Type vitamin#30 30 mg iron-10 1 cap PO DAILY 04/07/19 Unknown History mg iron-folic acid 1 mg-omg3 capsule levothyroxine 50 mcg tablet 50 mcg PO DAILY #90 tabs 11/06/23 01/11/24 Rx aspirin 81 mg tablet,delayed 81 mg PO DAILY 12/22/23 01/07/24 History release (Adult Aspirin Regimen) Allergy/AdvReac Type Severity Reaction Status Date / Time banana Allergy Mild RASH Verified 01/11/24 12:37 Latex, Natural Rubber Allergy Mild Rash Verified 01/11/24 12:37 Family History Father , BLOOD CLOT BLOOD CLOT Surgical History H/O wisdom tooth extraction Social History adopted: No household members: family housing: house number of children: 2 current occupational status: employed 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[employer] pets and animals: Yes (Outside dog and chickens) pets and animals: dog(s) and farm animals history of recent travel: No sexually active: Yes Smoking Status: Never smoker alcohol intake: never substance use type: does not use well-balanced diet: daily or most days caffeine: No eating out: rarely or never during the past year weight has: decreased > 10 lbs what type of physical activity do you participate in: walking frequency: 1-2 times per week duration: 15-30 minutes/day femi/zoroastrianism: Congregational seatbelt use: always do you feel safe at home: Yes 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 Date Name GA/Weeks Outcome Route Bth Weight Gen Labor Lgth Anesthesia Del Locatn Provider FOB Unknown 03/2019 SAB spontaneous Unknown 07/2021 chemical Unknown 08/03/2023 miscarriage 6 spontaneous 04/29/20 [place] 39 live - full term 6# Male none [facility] Alexia hayden Tayo 07/10/22 Annabelle [place] 39 live - full term 7#11oz Female none [facility] Guido Mascoutah Delivery Date: 04/29/20 Last Updated by: Su MULLINS Delivery Date: 07/10/22 Last Updated by: Su MULLINS IOL Visit Details Expected Delivery Route/Plan Labor Preferences- CB/BF classes: [] labor support person: [] labor intervention preferences: [] pain management options preferred: [] cut cord/dad catch: [] : [] PP control planned: [] discussed possible routes of delivery and associated risks: [] special requests: [] Plans Covid status: [] Flu vaccine: [] Tdap vaccine: [] Rhogam: [] LARC form signed: [] Problem list reviewed and updated with the most current plan of care details and appropriate orders placed. Relevant counseling for the gestational age provided. Continue routine care and follow up unless otherwise noted in visit notes/problem list details OB Flowsheet Initial Weight: Not Recorded Date -???-???-???-???-???-???- ???-???-???-???-???-???- EGA Weight BP Urine Prot -???-???-???-???-???-???- ???-???-???-???-???-???- Glucose FHR FuHt Pres Dilation -???-???-???-???-???-???- ???-???-???-???-???-???- Effaced St Visit Note 12/29/23 -???-???-???-???-???-???- ???-???-???-???-???-???- 6w 1d 128 lb 116/72 -???-???-???-???-???-???- ???-???-???-???-???-???- 85 -???-???-? (more content not included)... [facility] MR/POSTOP.ANEon 01-11-2024 MR/POSTOP.[facility] Medical Records Department [address] [place] [address] Anesthesia Postop Eval I 01/11/24 1412 MR#: [id number] Acct: [id number] Name: CECY GALLEGOS Rep #: [id number] : 1995 28 From: Aníbal Gill PCP: Dr. Warren Melendez MD Status:[place] [facility] [place] Race: C Location: [place] [address] Anesthesia: Postop Eval I Current Vital Signs Temperature: 97.7 F Pulse Rate: 72 Blood Pressure: 103/64 Respiratory Rate: 14 Pulse Ox: 99 Oxygen Delivery Method: Room Air Assessment Airway patent: Yes Spontaneous unlabored respirations: Yes Mental status: Asleep nausea: No Vomiting: No Anesthesia Complication: No Fluid Hydration Crystalloid volume administer (ml): 800 Total IV fluid infused: 800 Progress Note Anesthesia document: Postop Eval 1 completed: Yes 01/11/24 1416 Date Aníbal Marie Signature: Date CC: Signed [facility] [id number] 01-11-2024 MR/POSTOPAN2 [facility] Medical Records Department [address] [place] [address] Anesthesia Postop Eval II 01/11/24 1636 MR#: [id number] Acct: [id number] Name: CECY GALLEGOS Rep #: [id number] : 1995 28 From: José Miguel Villafuerte MD PCP: Dr. Warren Melendez MD Status:[facility] Y Race: C [place] [facility] [place]esthesia Postop Eval I Sum Postop Eval Completion status Anesthesia document: Postop Eval 1 completed: Yes Anesthesia Postop Eval I Summary Anesthesia Postop Eval I Summary: Anesthesia Postop Eval I: Assessment Summary Airway patent Yes 01/11/24 14:16 [email or web address] Spontaneous unlabored Yes 01/11/24 14:16 [email or web address] respirations Mental status Asleep 01/11/24 14:16 [email or web address] nausea No 01/11/24 14:16 [email or web address] Vomiting No 01/11/24 14:16 [email or web address] Anesthesia Postop Eval I: Fluid Summary Crystalloid volume administer 800 01/11/24 14:16 [email or web address] (ml) Colloids volume administered ( ml) Blood Product volume administered (ml) Total IV fluid infused 800 01/11/24 14:16 [email or web address] Anesthesia Postop Eval I: Summary Notes Anesthesia Complication No 01/11/24 14:16 [email or web address] Anesthesia Complication Comment: Post-operative progress note Anesthesia: Postop Eval II Evaluation Mental status: Awake and Calm Pain Level: 1 nausea: No Vomiting: No Complications Anesthesia Complication: No 01/11/24 1636 Date José Miguel Villafuerte MD Cosigner Signature: Date CC: Signed Normal [facility] Surgery Specimen Level Giovanni 01-11-2024 Surgery Specimen Level IV Patient Age/Sex Location Account Attending Physician CECY GALLEGOS [facility] [id number]. Pam Koo MD Specimen: [id number] Received: 01/11/24 Status: MARCUS Greene Num: [id number] Spec Type: PROD CONC Subm Dr: Dr. Pam Koo MD HEADER OPERATION: D C, suction PRE-OP DIAGNOSIS: Missed TISSUE SUBMITTED: Products of conception MICROSCOPIC DIAGNOSIS Endometrium, curettage: Chorionic villi, decidualized stroma and trophoblastic cells consistent with products of conception. AM: 01/13/2024 MICROSCOPIC DESCRIPTION Slides are reviewed. GROSS DESCRIPTION Received in fixative is one container labeled with the patient's name and designated Products of conception. The specimen consists of multiple fragments of pink soft tissue measuring in aggregate 7.0 x 6.0 x 1.5cm. No tissue is identified. Critical Care Unit Manager tissue is submitted in two cassettes. Moreno 01/12/2024 TC:5 CPT:04428 Patient Age/Sex Location Account Attending Physician CECY GALLEGOS [place] [facility] [id number]. Pam Koo MD Signed (signature on file) Dr. Brandon Chapman DO 01/13/24 1243 [facility] Comment on above: Performed By: #### P SUIV ####[facility] [address] [place], [address] Type AND Screen - PAT ONLYon 01-11-2024 Ab SCREEN GEL Negative Normal [facility] Comment on above: Order Comment: Surge ry Date: 01/11/24Reason for Laboratory Test [id number] d c Performed By: #### B TSPAT ####[facility] [address] [place], [address] Transvaginal w/Preg USon Transvaginal w/Preg US [facility] Imaging Services [address] [place] [address] Transvaginal w/Preg US MR#: [id number] Acct: [id number] Name: CECY GALLEGOS Rep #: [id number] : 1995 F 28 From: Duncan Luo MD PCP: Dr. Warren Melendez MD Status: [facility] CLI Study: Transvaginal w/Preg US Date of Exam: 01/08/24 Exam# [id number] Ordering Dr: Pam Koo ADDENDUM by Dr. Duncan Luo MD on 01/08/24 at 1217 [id number] STUDY: FIRST TRIMESTER OBSTETRICAL ULTRASOUND REASON FOR EXAM: Female, 28 years old confirm miscarriage/rule out molar LMP: 11/16/2023 TECHNIQUE: Transvaginal TECHNICAL QUALITY: Adequate. PRIOR ULTRASOUND: 12/24/2023 FINDINGS: There is visualization of a single gestational sac in a normal intrauterine position. The mean sac diameter (MSD) measures 29 mm, indicating an estimated gestational age (EGA) of 8 weeks, 0 days. The gestational sac shape is within normal limits. There is a visualized yolk sac. The yolk sac measures 5 mm. The placenta is non-visualized. There is no demonstrated embryo ( pole).. The estimated gestation age (EGA) by LMP is 7 weeks, 4 days. The estimated date of delivery (GERMAN) by LMP is 08/22/2024. The estimated gestation age (EGA) by US is 8 weeks, 0 days. The estimated date of delivery (GERMAN) by US is 08/19/2024. The uterus measures 9.2 x 6.2 x 7.5 cm. There is no demonstrated uterine fibroid. The cervix is closed. The right ovary measures 2.3 x 2.1 x 3.37. There is no right ovarian cyst. There is no visualized right adnexal mass or complex lesion. The left ovary measures 3.1 x 2.6 x 3.6 cm. There is no left ovarian cyst. There is no visualized left adnexal mass or complex lesion. There is no fluid in the cul de sac. 01/08/24 1217 Date cc: Dr. Warren Melendez MD; Dr. Pam Koo MD * Signed ADDENDUM by Dr. Duncan Luo MD on 01/08/24 at 1217 US/Transvaginal w/Preg US IMPRESSION: Gestational sac of 8 weeks 0 days with a yolk sac but no identifiable pole. Differential diagnosis includes an incomplete or an embryonic (blighted ovum) is. N.B. : The above Results were Read Back by Duncan Luo MD to Su Chowdary RN, and understanding confirmed on 01/08/2024 12:29:33 (ET). Electronically Signed: Duncan Luo MD at 12:17 EDT , 01/08/24 1236 Date cc: Dr. Warren Melendez MD; Dr. Pam Koo MD * Signed We are attempting to reach an attending provider to discuss findings. An addendum with communication details will be sent when the communication is complete. [id number] STUDY: FIRST TRIMESTER OBSTETRICAL ULTRASOUND REASON FOR EXAM: Female, 28 years old confirm miscarriage/rule out molar LMP: 11/16/2023 TECHNIQUE: Transvaginal TECHNICAL QUALITY: Adequate. PRIOR ULTRASOUND: 12/24/2023 FINDINGS: There is visualization of a single gestational sac in a normal intrauterine position. The mean sac diameter (MSD) measures 29 mm, indicating an estimated gestational age (EGA) of 8 weeks, 0 days. The gestational sac shape is within normal limits. There is a visualized yolk sac. The yolk sac measures 5 mm. The placenta is non-visualized. There is no demonstrated embryo ( pole).. The estimated gestation age (EGA) by LMP is 7 weeks, 4 days. The estimated date of delivery (GERMAN) by LMP is 08/22/2024. The estimated gestation age (EGA) by US is 8 weeks, 0 days. The estimated date of delivery (GERMAN) by US is 08/19/2024. The uterus measures 9.2 x 6.2 x 7.5 cm. There is no demonstrated uterine fibroid. The cervix is closed. The right ovary measures 2.3 x 2.1 x 3.37. There is no right ovarian cyst. There is no visualized right adnexal mass or complex lesion. The left ovary measures 3.1 x 2.6 x 3.6 cm. There is no left ovarian cyst. There is no visualized left adnexal mass or complex lesion. There is no fluid in the cul de sac. US/Transvaginal w/Preg US IMPRESSION: Gestational sac of 8 weeks 0 days with a yolk sac but no identifiable pole. Differential diagnosis includes an incomplete or an embryonic (blighted ovum) is. Electronically Signed: Duncan Luo MD at 12:17 EDT , CC: Dr. Warren Melendez MD; Dr. Pam Koo MD Cheese Supervisor: (more content not included)... Normal [facility] Bakery Team Member Office Visit Reporton 01-07-2024 Bakery Team Member Office Visit Report [facility] [address] [place] [address] OFFICE VISIT Date of Service: 01/07/24 MR#: [id number] Acct: [id number] Name: CECY GALLEGOS Rep #: [id number] : 1995 Provider: Dr. Keshia Wells DO Age/Sex: 28/F [place] [facility] [place]: Signed Intake Vital Signs 12/29/23 13:12 01/07/24 16:12 01/07/24 16:14 Height 5 ft 3 in 5 ft 3 in 5 ft 3 in Weight: 127 lb BMI 22.4 BP 117/70 Intake Visit Reasons: OB RESCAN Pattern Painter Required: No Is patient in pain?: No Allergies banana Allergy (Mild, Verified 01/07/24 16:13) RASH Latex, Natural Rubber Allergy (Mild, Verified 01/07/24 16:13) Rash Medications ???Medication ???Instructions ???Recorded ???Confirmed ???Type vitamin#30 30 mg iron-10 1 cap PO DAILY 04/07/19 01/07/24 History mg iron-folic acid 1 mg-omg3 capsule levothyroxine 50 mcg tablet 50 mcg PO DAILY #90 tabs 11/06/23 01/07/24 Rx aspirin 81 mg tablet,delayed 81 mg PO DAILY 12/22/23 01/07/24 History release (Adult Aspirin Regimen) Last Menstrual Period: 11/02/23 Current gender identity: female Zika: Zika virus screening: Negative : No Have you fallen in the past year?: No PFSH PFSH Medical History Thyroid disease affecting SAB (spontaneous ) 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 Thyroiditis (spontaneous vaginal delivery) Spontaneous rupture of amniotic membranes Thyroid disorder GBS (group B Streptococcus carrier), +RV culture, currently Supervision of high-risk Amenorrhea ASCUS of cervix with negative high risk HPV 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 Surgical History H/O wisdom tooth extraction Family History Father , BLOOD CLOT BLOOD CLOT Social History adopted: No household members: family housing: house number of children: 2 current occupational status: employed 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[employer] pets and animals: Yes (Outside dog and chickens) pets and animals: dog(s) and farm animals history of recent travel: No sexually active: Yes current gender identity: female Smoking Status: Never smoker alcohol intake: never substance use type: does not use well-balanced diet: daily or most days caffeine: No eating out: rarely or never during the past year weight has: decreased > 10 lbs what type of physical activity do you participate in: walking frequency: 1-2 times per week duration: 15-30 minutes/day femi/zoroastrianism: Congregational seatbelt use: always do you feel safe at home: Yes 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 Date Name GA/Weeks Outcome Route Bth Weight Infant Gen Labor Lgth Anesthesia Del Locatn Provider FOB Unknown 03/2019 SAB spontaneous Unknown 07/2021 chemical Unknown 08/03/2023 miscarriage 6 spontaneous 04/29/20 River 39 live - full term 6# Male none [employer] Alexia hayden Tayo 07/10/22 Annabelle Rouse 39 live - full term 7#11oz Female none [employer] [facility] Hay [place] Delivery Date: 04/29/20 Last Updated by: Su MULLINS Delivery Date: 07/10/22 Last Updated by: Su MULLINS IOL HPI OB RESCAN Details: CECY GALLEGOS is a 28 year old who presents for routine OB visit. OB Visit GERMAN Calculator Estimated Delivery Date Method Current WG Current Estimate 08/22/24 Ultrasound #1 7w 3d Other Estimates 08/08/24 LMP (Certain) 9w 3d Expected Delivery Route/Plan Labor Preferences- CB/BF classes: [] labor support person: [] labor intervention preferences: [] pain management options preferred: [] cut cord/dad catch: [] : [] PP control planned: [] discussed possible routes of delivery and associated risks: [] special requests: [] Specific Issue/Plans Covid status: [] Flu vaccine: [] Tdap vaccine: [] Rhogam: [] LARC form signed: [] Problem list reviewed and updated with the most current plan of care details and appropriate orders placed. Relevant counseling for the gestational age provided. Continue routine care and follow up unless otherwise noted in visit notes/problem list details Initial Weight: Not Recorded Date -???-???-???-???-???-???- ???-???-???-?? (more content not included)... Normal [facility] Chlamydia/GC RORY aptimaon CHLAMY,NUC ACID Negative Normal Negative [facility] Comment on above: Performed By: #### L 509.4005, L509.8000, L3890.6005, L506.0400, BTS, L3890.6100, L100.0100, L3890.6300, L501.9520 #### [facility] Laboratory [address] [place], [place], [id number] GC BY NUC ACID Negative Normal Negative [facility] Comment on above: Result Comment: Perf ormed at: =G - [facility] [place] [id number] Cardiology Specialist: Isis Aranda MD, Phone: [phone] Performed By: #### L 509.4005, L509.8000, L3890.6005, L506.0400, BTS, L3890.6100, L100.0100, L3890.6300, L501.9520 #### [facility] [address] [place], [place], [address] Urine Cultureon 12-30-2023 URC Culture exhibits no growth. Normal [facility] Comment on above: Performed By: #### L 509.4005, L509.8000, L3890.6005, L506.0400, BTS, L3890.6100, L100.0100, L3890.6300, L501.9520 #### [facility] [address] [place], [address] Bakery Team Member Office Visit Reporton 12-29-2023 Bakery Team Member Office Visit Report [facility] [address] [place] [address] OFFICE VISIT Date of Service: 12/29/23 MR#: [id number] Acct: [id number] Name: CECY GALLEGOS Rep #: [id number] : 1995 Provider: CARON Wilson ams Age/Sex: 28/F [place] [facility] [place]: Signed Intake Vital Signs 11/06/23 15:37 12/29/23 13:07 12/29/23 13:12 Height 5 ft 3 in 5 ft 3 in 5 ft 3 in Weight: 128 lb BMI 22.6 BP 116/72 Intake Visit Reasons: LMP 11/02 Pattern Painter Required: No Is patient in pain?: No Allergies banana Allergy (Mild, Verified 12/29/23 13:08) RASH Latex, Natural Rubber Allergy (Mild, Verified 12/29/23 13:08) Rash Medications ???Medication ???Instructions ???Recorded ???Confirmed ???Type vitamin#30 30 mg iron-10 1 cap PO DAILY 04/07/19 12/22/23 History mg iron-folic acid 1 mg-omg3 capsule levothyroxine 50 mcg tablet 50 mcg PO DAILY #90 tabs 11/06/23 12/22/23 Rx aspirin 81 mg tablet,delayed 81 mg PO DAILY 12/22/23 12/22/23 History release (Adult Aspirin Regimen) Last Menstrual Period: 11/02/23 Zika: Zika virus screening: Negative : No [facility] Medical History Thyroid disease affecting SAB (spontaneous ) 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 Thyroiditis (spontaneous vaginal delivery) Spontaneous rupture of amniotic membranes Thyroid disorder GBS (group B Streptococcus carrier), +RV culture, currently Supervision of high-risk Amenorrhea ASCUS of cervix with negative high risk HPV 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 Surgical History H/O wisdom tooth extraction Family History Father , BLOOD CLOT BLOOD CLOT Social History adopted: No household members: family housing: house number of children: 2 current occupational status: employed 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[employer] pets and animals: Yes (Outside dog and chickens) pets and animals: dog(s) and farm animals history of recent travel: No sexually active: Yes Smoking Status: Never smoker alcohol intake: never substance use type: does not use well-balanced diet: daily or most days caffeine: No eating out: rarely or never during the past year weight has: decreased > 10 lbs what type of physical activity do you participate in: walking frequency: 1-2 times per week duration: 15-30 minutes/day femi/zoroastrianism: Congregational seatbelt use: always do you feel safe at home: Yes 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 Date Name GA/Weeks Outcome Route Bth Weight Infant Gen Labor Lgth Anesthesia Del Locatn Provider FOB Unknown 03/2019 SAB spontaneous Unknown 07/2021 chemical Unknown 08/03/2023 miscarriage 6 spontaneous 04/29/20 River 39 live - full term 6# Male none [employer] [facility] Alexia hayden Tayo 07/10/22 Annabelle Rouse 39 live - full term 7#11oz Female none [employer] [facility] Hay [place] Delivery Date: 04/29/20 Last Updated by: Su MULLINS Delivery Date: 07/10/22 Last Updated by: Su MULLINS IOL HPI LMP 11/02 Details: CECY GALLEGOS is a 28 year old who presents for New OB visit. OB Visit GERMAN Calculator Estimated Delivery Date Method Current WG Current Estimate 08/08/24 LMP (Certain) 8w 1d Comments: HIV: Urine Culture: Sequential Screen: NIPT Screen: Estimated Due Date: 08/08/24 Expected Delivery Route/Plan Labor Preferences- CB/BF classes: [] labor support person: [] labor intervention preferences: [] pain management options preferred: [] cut cord/dad catch: [] : [] PP control planned: [] discussed possible routes of delivery and associated risks: [] special requests: [] Specific Issue/Plans Covid status: [] Flu vaccine: [] Tdap vaccine: [] Rhogam: [] LARC form signed: [] Problem list reviewed and updated with the most current plan of care details and appropriate orders placed. Relevant counseling for the gestational age provided. Continue routine care and follow up unless otherwise noted in visit notes/problem list details Initial Weight: Not Recorded Date -???-???-???-???-???-???- ???-???-???-???-???-???- EGA Weight BP Urine Prot -???-???-??? (more content not included)... Normal [facility] Transvaginal w/Preg USon Transvaginal w/Preg [facility] Imaging Services [address] [place] [address] Transvaginal w/Preg MR#: [id number] Acct: [id number] Name: CECY GALLEGOS Rep #: [id number] : 1995 F 28 From: Lenard jorgensen MD PCP: Dr. Warren Melendez MD Status: [facility] Study: Transvaginal w/Preg Date of Exam: 12/24/23 Exam# [id number] Ordering Dr: Pam Koo [id number] STUDY: FIRST TRIMESTER OBSTETRICAL ULTRASOUND REASON FOR EXAM: Female, 28 years old viability LMP: November 17, 2023. TECHNIQUE: Transvaginal TECHNICAL QUALITY: Adequate. PRIOR ULTRASOUND: None. FINDINGS: There is visualization of a single gestational sac in a normal intrauterine position. The mean sac diameter (MSD) measures 1.74 cm, indicating an estimated gestational age (EGA) of 6 weeks, 4 days. The gestational sac shape is within normal limits. There is a visualized yolk sac. The yolk sac measures 3.4 mm. The placenta is non-visualized. There is no demonstrated embryo ( pole). The estimated gestation age (EGA) by LMP is 7 weeks, 2 days. The estimated date of delivery (GERMAN) by LMP is August 09, 2024. The estimated gestation age (EGA) by US is 6 weeks, 4 days. The estimated date of delivery (GERMAN) by US is August 14, 2024. The uterus measures 8.7 cm x 8.2 cm x 5.4 cm. There is no demonstrated uterine fibroid. The cervix is closed. The right ovary measures 2.8 cm x 2.4 cm x 2 cm. There is no right ovarian cyst. There is no visualized right adnexal mass or complex lesion. The left ovary measures 3.2 cm x 2.6 x 2.5 cm. There is a 2.5 cm x 2 cm x 1.9 cm corpus luteum cyst. There is no visualized left adnexal mass or complex lesion. There is no fluid in the cul de sac. US/Transvaginal w/Preg US IMPRESSION: Single live uterine gestation with a mean gestational age of 6 weeks and 4 days. Electronically Signed: Lenard Nunes MD at 13:44 EDT , CC: Dr. Warren Melendez MD; Dr. Pam Koo MD Cheese Supervisor: Signed Normal [facility] CBC W/Diff, Automatedon 12-11 Absolute Lymph 1.92 X10 3/uL Normal 0.83-4.51 [facility] Comment on above: Performed By: #### L 509.4005, L509.8000, L3890.6005, L506.0400, BTS, L3890.6100, L100.0100, L3890.6300, L501.9520 #### [facility] Laboratory [address] [place], [address] Absolute Neut 6.2 X10 3/uL Normal 2.0-7.7 [facility] Comment on above: Performed By: #### L 509.4005, L509.8000, L3890.6005, L506.0400, BTS, L3890.6100, L100.0100, L3890.6300, L501.9520 #### [facility] [address] [place], [address] Basophils/100 WBC (Bld) 0.6 % Normal 0-1 [facility] Comment on above: Performed By: #### L 509.4005, L509.8000, L3890.6005, L506.0400, BTS, L3890.6100, L100.0100, L3890.6300, L501.9520 #### [facility] [address] [place], [address] Eosinophils/100 WBC (Bld) 2.2 % Normal 0-5 [facility] Comment on above: Performed By: #### L 509.4005, L509.8000, L3890.6005, L506.0400, BTS, L3890.6100, L100.0100, L3890.6300, L501.9520 #### [facility] [address] [place], [place], [id number] Erythrocyte distribution width (RBC) [Ratio] 12.1 % Normal 11.6-14.6 [facility] Comment on above: Performed By: #### L 509.4005, L509.8000, L3890.6005, L506.0400, BTS, L3890.6100, L100.0100, L3890.6300, L501.9520 #### [facility] [address] [place], [address] Hematocrit (Bld) [Volume fraction] 36.3 % Low 37-47 [facility] Comment on above: Performed By: #### L 509.4005, L509.8000, L3890.6005, L506.0400, BTS, L3890.6100, L100.0100, L3890.6300, L501.9520 #### [facility] [address] [place], [place], [address] Hemoglobin (Bld) [Mass/Vol] 12.4 g/dL Normal 12.0-15.0 [facility] Comment on above: Performed By: #### L 509.4005, L509.8000, L3890.6005, L506.0400, BTS, L3890.6100, L100.0100, L3890.6300, L501.9520 #### [facility] [address] [place], [place], [id number] IG% 0.200 Normal 0.0-0.9 [facility] Comment on above: Result Comment: IG% - Immature Granulocytes (promyelocytes, myelocytes and metamyelocytes) > 1% indicates that a LEFT SHIFT is Present. Performed By: #### L 509.4005, L509.8000, L3890.6005, L506.0400, BTS, L3890.6100, L100.0100, L3890.6300, L501.9520 #### [facility] [address] [place], [address] Lymphocytes/100 WBC (Bld) 21.4 % Normal 19-41 [facility] Comment on above: Performed By: #### L 509.4005, L509.8000, L3890.6005, L506.0400, BTS, L3890.6100, L100.0100, L3890.6300, L501.9520 #### [facility] [address] [place], [address] MCH (RBC) [Entitic mass] 29.7 pg Normal 27.0-32.0 [facility] Comment on above: Performed By: #### L 509.4005, L509.8000, L3890.6005, L506.0400, BTS, L3890.6100, L100.0100, L3890.6300, L501.9520 #### [facility] [address] [place], [address] MCHC (RBC) [Mass/Vol] 34.2 g/dL Normal 32-36 [facility] Comment on above: Performed By: #### L 509.4005, L509.8000, L3890.6005, L506.0400, BTS, L3890.6100, L100.0100, L3890.6300, L501.9520 #### [facility] [address] [place], [address] MCV (RBC) [Entitic vol] 87.1 fL Normal 81-99 [facility] Comment on above: Performed By: #### L 509.4005, L509.8000, L3890.6005, L506.0400, BTS, L3890.6100, L100.0100, L3890.6300, L501.9520 #### [facility] [address] [place], [address] Monocytes/100 WBC (Bld) 7.1 % Normal 0-10 [facility] Comment on above: Performed By: #### L 509.4005, L509.8000, L3890.6005, L506.0400, BTS, L3890.6100, L100.0100, L3890.6300, L501.9520 #### [facility] [address] [place], [address] Neutrophils/100 WBC (Bld) 68.5 % Normal 47-70 [facility] Comment on above: Performed By: #### L 509.4005, L509.8000, L3890.6005, L506.0400, BTS, L3890.6100, L100.0100, L3890.6300, L501.9520 #### [facility] [address] [place], [address] Nucleated RBC (Bld) [#/Vol] 0 10*3/uL Normal 0-5 [facility] Comment on above: Performed By: #### L 509.4005, L509.8000, L3890.6005, L506.0400, BTS, L3890.6100, L100.0100, L3890.6300, L501.9520 #### [facility] [address] [place], [address] Platelet mean volume (Bld) [Entitic vol] 9.2 fL Normal 6.2-12.0 [facility] Comment on above: Performed By: #### L 509.4005, L509.8000, L3890.6005, L506.0400, BTS, L3890.6100, L100.0100, L3890.6300, L501.9520 #### [facility] [address] [place], [address] Platelets (Bld) [#/Vol] 277 10*3/uL Normal 150-450 [facility] Comment on above: Performed By: #### L 509.4005, L509.8000, L3890.6005, L506.0400, BTS, L3890.6100, L100.0100, L3890.6300, L501.9520 #### [facility] [address] [place], [address] RBC (Bld) [#/Vol] 4.17 10*6/uL Low 4.2-5.4 [facility] Comment on above: Performed By: #### L 509.4005, L509.8000, L3890.6005, L506.0400, BTS, L3890.6100, L100.0100, L3890.6300, L501.9520 #### [facility] [address] [place], [address] RDW SD 39.0 fl Normal 35.1-43.9 [facility] Comment on above: Performed By: #### L 509.4005, L509.8000, L3890.6005, L506.0400, BTS, L3890.6100, L100.0100, L3890.6300, L501.9520 #### [facility] [address] [place], [address] WBC (Bld) [#/Vol] 9.0 10*3/uL Normal 4.4-11.0 [facility] Comment on above: Performed By: #### L 509.4005, L509.8000, L3890.6005, L506.0400, BTS, L3890.6100, L100.0100, L3890.6300, L501.9520 #### [facility] [address] [place], [address] HIV - WCHon 12-23-2023 HIV Non-Reactive Normal Nonreactive [facility] Comment on above: Order Comment: Reaso n for Exam: Performed By: #### L 509.4005, L509.8000, L3890.6005, L506.0400, BTS, L3890.6100, L100.0100, L3890.6300, L501.9520 #### [facility] [address] [place], [address] Hepatitis B Surface Antigeno n 12-23-2023 HEP B Surf Ag Non-Reactive Normal Nonreactive [facility] Comment on above: Order Comment: Reaso n for Exam: Performed By: #### L 509.4005, L509.8000, L3890.6005, L506.0400, BTS, L3890.6100, L100.0100, L3890.6300, L501.9520 #### [facility] [address], [address] Hepatitis C Antibodyon 12-22 Hepatitis C AB Non-Reactive Normal Nonreactive [facility] Comment on above: Order Comment: Reaso n for Exam: Result Comment: Non Reactive: < 0.8 Equivocal: >/= 0.8 to < 1.0 Reactive: >/= 1.0 The CDC requires that a reactive/equivocal HCV antibody result be sent out for confirmation. HCV Quant by PCR testing. Performed By: #### L 509.4005, L509.8000, L3890.6005, L506.0400, BTS, L3890.6100, L100.0100, L3890.6300, L501.9520 #### [facility] [address] [place], [address] L509.8000on 12-23-2023 Syphilis Abs Non-Reactive Normal [facility] Comment on above: Order Comment: Reaso n for Exam: Performed By: #### L 509.4005, L509.8000, L3890.6005, L506.0400, BTS, L3890.6100, L100.0100, L3890.6300, L501.9520 #### [facility] [address] [place], [address] Rubella IgGon 12-23-2023 Rubella IgG Reactive Normal Nonreactive [facility] Comment on above: Order Comment: Reaso n for Exam: Result Comment: Anti body Results Interpretation of Immune Status Non Reactive Presumed Non-Immune Equivocal Equivocal Reactive Presumed Immune Performed By: #### L 509.4005, L509.8000, L3890.6005, L506.0400, BTS, L3890.6100, L100.0100, L3890.6300, L501.9520 #### [facility] [address] [place], [place], [id number] Type AND Screenon 12-23-2023 ABO and Rh group Nom (Bld) Blood group A Rh(D) positive Normal [facility] Comment on above: Order Comment: PN Performed By: #### L 509.4005, L509.8000, L3890.6005, L506.0400, BTS, L3890.6100, L100.0100, L3890.6300, L501.9520 #### [facility] [address] [place], [place], [id number] hCG Titer Quant., Serumon HCG QUANT. 73137 mIU/mL High 1-3 [facility] Comment on above: Result Comment: hCG levels with Gestational Age Gestational Age hCG mIU/mL (IU/L) 0.2 - 1 week 5 - 50 1-2 weeks 50 - 500 2-3 weeks 100 - 5000 3-4 weeks 500 - 10492 4-5 weeks 1000 - 25326 5-6 weeks 74478 - 100,000 6-8 weeks 29298 - 200,000 2-3 months 14181 - 100,000 Performed By: #### L 509.4005, L509.8000, L3890.6005, L506.0400, BTS, L3890.6100, L100.0100, L3890.6300, L501.9520 #### [facility] [address] [place], [place], [id number] Cervical or vaginal specimen microscopic examination by liquid based cytology (reportOrdered By: Justina Guido on 09-25-2023 Cytology report Cyto stain.thin prep Doc (Cvx/Vag) Comment . [facility] Comment on above: Criteria not met, HP V Genotype not performed.Performed at: - [facility] [address], [place] [id number] Director: Isis Aranda MD, Phone: [phone] at: = - [facility] [address] [place], [place] [id number] Director: Isis Aranda MD, Phone: [phone] Cervical or vagninal specime n microscopic examination by cytology stain (reported asOrdered By: Justina Guido on 09-25-2023 Cytology report Cyto stain Doc (Cvx/Vag) Comment . [facility] Comment on above: The Pap smear is a s creening test designed to aid in thedetection of premalignant and malignant conditions of theuterine cervix. It is not a diagnostic procedure andshould not be used as the sole means of detecting cervicalcancer. Both false-positive and false-negative reports dooccur. Detection in cervical specim en of any of human papilloma virus (HPV) 16, 18, 31, 33,Ordered By: Justina Guido on 09-25-2023 HPV 16+18+31+33+35+39+45+5 1+52+56+58+59+66+68 DNA Probe+sig amp Ql (Cvx) Negative Negative [facility] Comment on above: This nucleic acid am plification test detects fourteen high- risk HPV types (16,18,31,33,35,39,45,51,52,56,58,59,66,68)without differentiation. Laboratory - CytologyOrdered By: Justina Guido on 09-25-2023 Lumber Tripper Cyto stain Nom (Cvx/Vag) [ID] Comment . [facility] Comment on above: Felicia Thompson [employer] hnologist (ASCP) Laboratory - Miscellaneous t estsOrdered By: Justina Guido on 09-25-2023 Service comment (Unsp spec) [Interp] . . [facility] Thin prep Papanicolaou smear with manual screeningOrdered By: Justina Guido on 09-25-2023 Thin prep Papanicolaou smear with manual screening Comment . [facility] Comment on above: NEGATIVE FOR INTRAEP ITHELIAL LESION OR MALIGNANCY. This liquid based Th inPrep(R) pap test was screened withthe use of an image guided system. No Panel InformationOrdered By: Justina Guido on 09-21-2023 Free Triiodothyronine (T3) pg/dL 2.8 pg/mL 2.18-3.98 [facility] Serum or plasma thyroid stim ulating hormone (TSH) measurement (units/volume)Ordered By: Justina Guido on 09-21-2023 TSH Qn 2.17 uIU/mL 0.358-3.74 [facility] Thin prep Papanicolaou smear with manual screeningOrdered By: Justina Guido on 09-21-2023 Thin prep Papanicolaou smear with manual screening 1.01 ng/dL 0.76-1.46 [facility] Serum or plasma choriogonado tropin detectionOrdered By: Caroline Stern on 08-17-2023 HCG ( test) Ql < 1 mIU/mL <4 [facility] Comment on above: hCG levels with Gest ational AgeGestational Age hCG mIU/mL (IU/L)0.2 - 1 week 5 - 501-2 weeks 50 - 5002-3 weeks 100 - 40992-2 weeks 500 - 017950-9 weeks 1000 - 207366-5 weeks 45674 - 100,0006-8 weeks 37126 - 200,0002-3 months 55947 - 100,000 Serum or plasma choriogonado tropin detectionOrdered By: Caroline Stern on 08-03-2023 HCG ( test) Ql 31 mIU/mL <4 [facility] Comment on above: hCG levels with Gest ational AgeGestational Age hCG mIU/mL (IU/L)0.2 - 1 week 5 - 501-2 weeks 50 - 5002-3 weeks 100 - 91754-0 weeks 500 - 656016-1 weeks 1000 - 373586-0 weeks 48276 - 100,0006-8 weeks 22025 - 200,0002-3 months 54670 - 100,000 Serum or plasma choriogonado tropin detectionOrdered By: Caroline Stern on 07-29-2023 HCG ( test) Ql 216 mIU/mL <4 [facility] Comment on above: hCG levels with Gest ational AgeGestational Age hCG mIU/mL (IU/L)0.2 - 1 week 5 - 501-2 weeks 50 - 5002-3 weeks 100 - 32307-9 weeks 500 - 372671-0 weeks 1000 - 015393-6 weeks 50883 - 100,0006-8 weeks 68425 - 200,0002-3 months 60418 - 100,000 Serum or plasma choriogonado tropin detectionOrdered By: Caroline Stern on 07-27-2023 HCG ( test) Ql 165 mIU/mL <4 [facility] Comment on above: hCG levels with Gest ational AgeGestational Age hCG mIU/mL (IU/L)0.2 - 1 week 5 - 501-2 weeks 50 - 5002-3 weeks 100 - 67128-3 weeks 500 - 257690-5 weeks 1000 - 250255-6 weeks 71521 - 100,0006-8 weeks 48712 - 200,0002-3 months 98614 - 100,000 Laboratory - Chemistry and C hemistry - challengeOrdered By: Moises Mazariegos on 05-25-2023 Free T4 [Mass/Vol] 0.87 ng/dL 0.76-1.46 [facility] No Panel InformationOrdered By: Moises Mazariegos on 05-25-2023 Thyroid Stimulating Hormone (TSH) 1.36 uIU/mL 0.358-3.74 [facility] Basophil percentageOrdered B y: Justina Guido on 10-24-2022 Chloride [Moles/Vol] 108 mmol/L 98-107 [facility] Cholesterol [Mass/Vol] 152 mg/dL <200 [facility] Comment on above: <200 mg/dL Desirable 200-240 mg/dL Borderline >240 mg/dL High Risk Glucose [Mass/Vol] 95 mg/dL 74-106 [facility] Potassium [Moles/Vol] 3.7 mmol/L 3.5-5.1 [facility] Sodium [Moles/Vol] 139 mmol/L 136-145 [facility] Triglyceride [Mass/Vol] 37 mg/dL <199 [facility] Comment on above: The drugs N-Acetylcy steine and Metamizole may falsely depress this assay.Serum Triglycerides Reference Interval Normal <150 mg/dL Borderline high 150 - 199 mg/dL High 200 - 499 mg/dL Very High > or = 500 mg/dL Laboratory - Chemistry and C hemistry - challengeOrdered By: Justina Guido on 10-24-2022 CO2 [Moles/Vol] 28.0 mmol/L 21.0-32.0 [facility] Free T4 [Mass/Vol] 1.06 ng/dL 0.76-1.46 [facility] Urea nitrogen/Creatinine [Mass ratio] 15.5 mg/mg 10-20 [facility] No Panel InformationOrdered By: Justina Guido on 10-24-2022 Estimated GFR (MDRD) Amer 139 mL/min >60 [facility] Comment on above: GFR Calc Estimated GFR (MDRD) Non-Af Amer 115 mL/min >60 [facility] Comment on above: Non- GFR Calc Thyroid Stimulating Hormone (TSH) 0.08 uIU/mL 0.358-3.74 [facility] Serum or plasma calcium ramiro urement (mass/volume)Ordered By: Justina Guido on 10-24-2022 Calcium [Mass/Vol] 8.7 mg/dL 8.5-10.1 [facility] Serum or plasma cholesterol in HDL measurement (mass/volume)Ordered By: Justina Guido on 10-24-2022 Cholesterol in HDL [Mass/Vol] 44 mg/dL >40 [facility] Comment on above: The drugs N-Acetylcy steine and Metamizole may falsely depress this assay. Reference Range HDL <40 mg/dL Low HDL Cholesterol HDL >or= 60 mg/dL High HDL Cholesterol Serum or plasma cholesterol in VLDL measurement (mass/volume)Ordered By: Justina Guido on 10-24-2022 Cholesterol in VLDL [Mass/Vol] 7 mg/dL 5-40 [facility] Serum or plasma creatinine m easurement (mass/volume)Ordered By: Justina Guido on 10-24-2022 Creatinine [Mass/Vol] 0.64 mg/dL 0.55-1.02 [facility] Comment on above: The validity of the calculated GFR & GFRAA in patients over 70 years has not been determined. Clinical correlation is essential. Serum or plasma low density lipoprotein (LDL) cholesterol measurement (mass/volume)Ordered By: Justina Guido on 10-24-2022 Cholesterol in LDL [Mass/Vol] 101 mg/dL 0-130 [facility] Serum or plasma urea nitroge n measurement (mass/volume)Ordered By: Justina Guido on 10-24-2022 Urea nitrogen [Mass/Vol] 10 mg/dL 7-18 [facility] Thin prep Papanicolaou smear with manual screeningOrdered By: Justina Guido on 10-24-2022 Thin prep Papanicolaou smear with manual screening 3 5-15 [facility] Absolute lymphocyte countOrd ered By: Justina Guido on 07-09-2022 Lymphocytes Auto (Unsp spec) [#/Vol] 1.76 10*3/uL 0.83-4.51 [facility] Basophil percentageOrdered B y: Justina Guido on 07-09-2022 Basophils/100 WBC (Bld) 0.4 % 0-1 [facility] Eosinophils/100 WBC (Bld) 1.8 % 0-5 [facility] Neutrophils (Bld) [#/Vol] 8.3 10*3/uL 2.0-7.7 [facility] Neutrophils/100 WBC (Bld) 73.5 % 47-70 [facility] WBC (Bld) [#/Vol] 11.2 10*3/uL 4.4-11.0 [facility] Blood erythrocytes count (nu mber/volume)Ordered By: Justina Guido on 07-09-2022 RBC (Bld) [#/Vol] 3.64 10*6/uL 4.2-5.4 [facility] Blood hemoglobin measurement (mass/volume)Ordered By: Justina Guido on 07-09-2022 Hemoglobin (Bld) [Mass/Vol] 10.4 g/dL 12.0-15.0 [facility] Blood lymphocytes/100 leukoc ytesOrdered By: Justina Guido on 07-09-2022 Lymphocytes/100 WBC (Bld) 15.7 % 19-41 [facility] Blood monocytes/100 leukocyt esOrdered By: Justina Guido on 07-09-2022 Monocytes/100 WBC (Bld) 7.8 % 0-10 [facility] Blood platelet mean volumeOr dered By: Justina Guido on 07-09-2022 Platelet mean volume (Bld) [Entitic vol] 9.2 fL 6.2-12.0 [facility] Determination of erythrocyte mean corpuscular volume (MCV)Ordered By: Justina Guido on 07-09-2022 MCV (RBC) [Entitic vol] 83.2 fL 81-99 [facility] Hematocrit Auto (Bld) [Volum e fraction]Ordered By: Justina Guido on 07-09-2022 Hematocrit (Bld) [Volume fraction] 30.3 % 37-47 [facility] - Hematology and Cell countsOrdered By: Justina Guido on 07-09-2022 Erythrocyte distribution width (RBC) [Entitic vol] 39.6 fL 35.1-43.9 [facility] Erythrocyte distribution width (RBC) [Ratio] 13.2 % 11.6-14.6 [facility] Immature granulocytes/100 WBC (Bld) 0.800 % 0.0-0.9 [facility] Comment on above: IG% - Immature Granu locytes (promyelocytes, myelocytes and metamyelocytes) > 1% indicates that a LEFT SHIFT is Present. MCH (RBC) [Entitic mass] 28.6 pg 27.0-32.0 [facility] Nucleated RBC/100 WBC (Bld) [Ratio] 0 % 0-5 [facility] MCHC Auto (RBC) [Mass/Vol]Or dered By: Justina Guido on 07-09-2022 MCHC (RBC) [Mass/Vol] 34.3 g/dL 32-36 [facility] No Panel InformationOrdered By: Justina Guido on 07-09-2022 Vaginal Amniotic Fluid Detection Positive Negative [facility] Comment on above: Amniotic fluid prese nt indicates rupture of Membranes. RESULTS CALLED TO OZZIE LYONS 07/09/221926 Stephy Borjas.REPORT READ BACK BY SAME . Platelets bldOrdered By: Katie Guido on 07-09-2022 Platelets (Bld) [#/Vol] 252 10*3/uL 150-450 [facility] Laboratory - Chemistry and C hemistry - challengeon 07-03-2022 Glucose Ql (U) Negative [facility] Work Phone: Laboratory - Urinalysison Protein Ql (U) Negative [facility] Work Phone: [phone] Laboratory - Chemistry and C hemistry - challengeon 06-27-2022 Glucose Ql (U) Negative [facility] Work Phone: [phone] Laboratory - Urinalysison Protein Ql (U) Negative [facility] Work Phone: [phone] Laboratory - Chemistry and C hemistry - challengeon 06-16-2022 Glucose Ql (U) Negative [facility] Work Phone: [phone] Laboratory - Urinalysison Protein Ql (U) Negative [facility] Work Phone: [phone] Laboratory - Chemistry and C hemistry - challengeon 06-02-2022 Glucose Ql (U) Negative [facility] Work Phone: [phone] Laboratory - Urinalysison Protein Ql (U) Negative [facility] Work Phone: [phone] Laboratory - Chemistry and C hemistry - challengeon 05-23-2022 Glucose Ql (U) Negative [facility] Work Phone: [phone] Laboratory - Urinalysison Protein Ql (U) Negative [facility] Work Phone: [phone] Laboratory - Chemistry and C hemistry - challengeon 05-09-2022 Glucose Ql (U) Negative [facility] Work Phone: [phone] Laboratory - Urinalysison Protein Ql (U) Negative [facility] Work Phone: [phone] Absolute lymphocyte counton 04-21-2022 Lymphocytes Auto (Unsp spec) [#/Vol] 1.35 10*3/uL 0.83-4.51 [facility] Work Phone: [phone] Basophil percentageon 2021 Basophils/100 WBC (Bld) 0.4 % 0-1 [facility] Work Phone: Eosinophils/100 WBC (Bld) 3.3 % 0-5 [facility] Work Phone: Neutrophils (Bld) [#/Vol] 5.8 10*3/uL 2.0-7.7 [facility] Work Phone: Neutrophils/100 WBC (Bld) 71.6 % 47-70 [facility] Work Phone: WBC (Bld) [#/Vol] 8.1 10*3/uL 4.4-11.0 [facility]: Blood erythrocytes count (nu mber/volume)on 04-21-2022 RBC (Bld) [#/Vol] 3.67 10*6/uL 4.2-5.4 [facility] Work Phone: Blood hemoglobin measurement (mass/volume)on 04-21-2022 Hemoglobin (Bld) [Mass/Vol] 11.5 g/dL 12.0-15.0 [facility] Work Phone: Blood lymphocytes/100 leukoc yteson 04-21-2022 Lymphocytes/100 WBC (Bld) 16.6 % 19-41 [facility] Work Phone: Blood monocytes/100 leukocyt eson 04-21-2022 Monocytes/100 WBC (Bld) 6.9 % 0-10 [facility] Work Phone: Blood platelet mean volumeon 04-21-2022 Platelet mean volume (Bld) [Entitic vol] 9.0 fL 6.2-12.0 [facility] Work Phone: [phone] Determination of erythrocyte mean corpuscular volume (MCV)on 04-21-2022 MCV (RBC) [Entitic vol] 90.7 fL 81-99 [facility] Work Phone: [phone] Gestational diabetes screen 1-hour screen with 50g oral glucose loadon 04-21-2022 Glucose 1 Hr post 50 g glucose PO [Mass/Vol] 120 mg/dL 70-140 [facility] Work Phone: Hematocrit Auto (Bld) [Volum e fraction]on 04-21-2022 Hematocrit (Bld) [Volume fraction] 33.3 % 37-47 [facility] Work Phone: Laboratory - Chemistry and C hemistry - challengeon 04-21-2022 Glucose Ql (U) Negative [facility] Work Phone: [phone] Laboratory - Hematology and Cell countson 04-21-2022 Erythrocyte distribution width (RBC) [Entitic vol] 38.8 fL 35.1-43.9 [facility] Work Phone: [phone] Erythrocyte distribution width (RBC) [Ratio] 11.8 % 11.6-14.6 [facility] Work Phone: [phone] Immature granulocytes/100 WBC (Bld) 1.200 % 0.0-0.9 [facility] Work Phone: Comment on above: IG% - Immature Granu locytes (promyelocytes, myelocytes and metamyelocytes) > 1% indicates that a LEFT SHIFT is Present. MCH (RBC) [Entitic mass] 31.3 pg 27.0-32.0 [facility] Work Phone: [phone] Nucleated RBC/100 WBC (Bld) [Ratio] 0 % 0-5 [facility] Work Phone: [phone] Laboratory - Urinalysison Protein Ql (U) Negative [facility] Work Phone: [phone] MCHC Auto (RBC) [Mass/Vol]on 04-21-2022 MCHC (RBC) [Mass/Vol] 34.5 g/dL 32-36 [facility] Work Phone: [phone] No Panel Informationon 04-21 Thyroid Stimulating Hormone (TSH) 1.43 uIU/mL 0.358-3.74 [facility] Work Phone: [phone] Platelets bldon 04-21-2022 Platelets (Bld) [#/Vol] 257 10*3/uL 150-450 [facility] Work Phone: [phone] Laboratory - Chemistry and C hemistry - challengeon 03-25-2022 Glucose Ql (U) Negative [facility] Work Phone: [phone] Laboratory - Urinalysison 09 -13-2022 Protein Ql (U) Negative [facility] Work Phone: [phone] Laboratory - Chemistry and C hemistry - challengeon 02-24-2022 Glucose Ql (U) Negative [facility] Work Phone: [phone] Laboratory - Urinalysison Protein Ql (U) Negative [facility] Work Phone: [phone] Laboratory - Chemistry and C hemistry - challengeon 01-28-2022 Glucose Ql (U) Negative [facility] Work Phone: [phone] Laboratory - Urinalysison Protein Ql (U) Negative [facility] Work Phone: [phone] Laboratory - Chemistry and C hemistry - challengeon 01-08-2022 Glucose Ql (U) Negative [facility] Work Phone: [phone] Laboratory - Urinalysison Protein Ql (U) Negative [facility] Work Phone: [phone] Laboratory - Chemistry and C hemistry - challengeon 01-01-2022 Glucose Ql (U) Negative [facility] Work Phone: [phone] Laboratory - Urinalysison Protein Ql (U) Negative [facility] Work Phone: [phone] Absolute lymphocyte counton 12-05-2021 Lymphocytes Auto (Unsp spec) [#/Vol] 1.68 10*3/uL 0.83-4.51 [facility] Work Phone: Basophil percentageon 2021 Basophils/100 WBC (Bld) 0.5 % 0-1 [facility] Work Phone: Eosinophils/100 WBC (Bld) 1.0 % 0-5 [facility] Work Phone: Neutrophils (Bld) [#/Vol] 5.9 10*3/uL 2.0-7.7 [facility] Work Phone: Neutrophils/100 WBC (Bld) 70.5 % 47-70 [facility] Work Phone: WBC (Bld) [#/Vol] 8.4 10*3/uL 4.4-11.0 [facility] Work Phone: [phone] Blood erythrocytes count (nu mber/volume)on 12-05-2021 RBC (Bld) [#/Vol] 4.24 10*6/uL 4.2-5.4 [facility] Work Phone: Blood hemoglobin measurement (mass/volume)on 12-05-2021 Hemoglobin (Bld) [Mass/Vol] 12.5 g/dL 12.0-15.0 [facility] Work Phone: Blood lymphocytes/100 leukoc yteson 12-05-2021 Lymphocytes/100 WBC (Bld) 20.0 % 19-41 [facility] Work Phone: Blood monocytes/100 leukocyt eson 12-05-2021 Monocytes/100 WBC (Bld) 7.5 % 0-10 [facility] Work Phone: [phone] Blood platelet mean volumeon 12-05-2021 Platelet mean volume (Bld) [Entitic vol] 9.3 fL 6.2-12.0 [facility] Work Phone: Chlamydia trachomatis rRNA d etection by probe and target amplification methodon 12-05-2021 C. trachomatis rRNA RORY+probe Ql (Unsp spec) Negative Negative [facility] Work Phone: Culture, urineon 12-05-2021 Bacteria identified Cx Nom (U) Streptococcus agalactiae (B) [facility] Work Phone: Determination of erythrocyte mean corpuscular volume (MCV)on 12-05-2021 MCV (RBC) [Entitic vol] 86.1 fL 81-99 [facility] Work Phone: HIV 1 and HIV-2 antibody ass ay with HIV-1 p24 antigen detectionon 12-05-2021 HIV 1+2 Ab+HIV1 p24 Ag IA Ql Non-Reactive Nonreactive [facility] Work Phone: Hematocrit Auto (Bld) [Volum e fraction]on 12-05-2021 Hematocrit (Bld) [Volume fraction] 36.5 % 37-47 [facility] Work Phone: Laboratory - Chemistry and C hemistry - challengeon 12-05-2021 Free T4 [Mass/Vol] 1.11 ng/dL 0.76-1.46 [facility] Work Phone: Laboratory - Drug toxicology on 12-05-2021 Amphetamines Ql (U) Negative <1000 ng/mL [facility] Work Phone: Benzodiazepines Ql (U) Negative < 200 ng/mL [facility] Work Phone: Cannabinoids Screen Ql (U) Negative < 50 ng/mL [facility] Work Phone: Cocaine Ql (U) Negative < 300 ng/mL [facility] Work Phone: Opiates Ql (U) Negative < 300 ng/mL [facility] Work Phone: Laboratory - Hematology and Cell countson 12-05-2021 Erythrocyte distribution width (RBC) [Entitic vol] 37.7 fL 35.1-43.9 [facility] [facility] Work Phone: Erythrocyte distribution width (RBC) [Ratio] 11.9 % 11.6-14.6 [facility] Work Phone: Immature granulocytes/100 WBC (Bld) 0.500 % 0.0-0.9 [facility] Work Phone: Comment on above: IG% - Immature Granu locytes (promyelocytes, myelocytes and metamyelocytes) > 1% indicates that a LEFT SHIFT is Present. MCH (RBC) [Entitic mass] 29.5 pg 27.0-32.0 [facility] Work Phone: Nucleated RBC/100 WBC (Bld) [Ratio] 0 % 0-5 [facility] Work Phone: Laboratory - Microbiology an d Antimicrobial susceptibilityon 12-05-2021 N. gonorrhoeae DNA RORY+probe Ql (Unsp spec) Negative Negative [facility] Work Phone: Comment on above: Performed at: =G - [facility] [id number] [place] [id number] Director: Isis Aranda MD, Phone: [phone] MCHC Auto (RBC) [Mass/Vol]on 12-05-2021 MCHC (RBC) [Mass/Vol] 34.2 g/dL 32-36 [facility] Work Phone: No Panel Informationon 12-05 MDMA (Ecstasy) Screen Negative < 500 ng/mL [facility] Work Phone: Urine Barbiturates Screen Negative < 200 ng/mL [facility] Work Phone: Urine Drug Screen Comment [facility] Work Phone: Comment on above: CONFIRMATORY TESTING FOR ALL POSITIVE URINE DRUG SCREENRESULTS WILL ONLY BE SENT OUT UPON PHYSICIAN ORDER. VISTA Urine Drug Screen methods provide only preliminaryanalytical test results. A more specific alternate chemicalmethod must be used in order to obtain a confirmedanalytical result. Gas chromatography/mass spectrometery(GC/MS) is the preferred confirmatory method. Clinicalconsideration and professional judgement should be appliedto any drug of abuse test result, particularly whenpreliminary positive results are used. URINE TCA TESTING MUST BE ORDERED SEPARATELY. USE TESTMNEMONIC: [facility] Urine Methadone Screen Negative < 300 ng/mL [facility] Work Phone: Hepatitis B Surface Antigen Non-Reactive Nonreactive [facility] Work Phone: Hepatitis C Antibody Non-Reactive Nonreactive [facility] Work Phone: Comment on above: Non Reactive: < 0.8 Equivocal: >/= 0.8 to < 1.0 Reactive: >/= 1.0The CDC recommends that a reactive/equivocal HCV antibody result be followed up by the HCV Nucleic Acid Amplificationtest (977856) Rubella IgG Antibody Reactive Nonreactive [facility] Work Phone: Comment on above: Antibody Results Int erpretation of Immune Status Non Reactive Presumed Non-Immune Equivocal Equivocal Reactive Presumed Immune Thyroid Stimulating Hormone (TSH) 1.46 uIU/mL 0.358-3.74 [facility] Work Phone: Platelets bldon 12-05-2021 Platelets (Bld) [#/Vol] 288 10*3/uL 150-450 [facility] Work Phone: Serum Treponema species anti body detectionon 12-05-2021 Treponema sp Ab Ql (S) Non-Reactive [facility] Work Phone: Urine phencyclidine (PCP) de tectionon 12-05-2021 Phencyclidine Ql (U) Negative < 25 ng/mL [facility] Work Phone: Serum or plasma choriogonado tropin detectionon 11-19-2021 HCG ( test) [place] [address] mIU/mL <4 [facility] Work Phone: Comment on above: hCG levels with Gest ational AgeGestational Age hCG mIU/mL (IU/L)0.2 - 1 week 5 - 501-2 weeks 50 - 5002-3 weeks 100 - 90021-9 weeks 500 - 217661-2 weeks 1000 - 566338-9 weeks 23391 - 100,0006-8 weeks 85274 - 200,0002-3 months 75517 - 100,000 Laboratory - Chemistry and C hemistry - challengeon 10-07-2021 Free T4 [Mass/Vol] 0.89 ng/dL 0.76-1.46 [facility] Work Phone: No Panel Informationon 10-07 Thyroid Stimulating Hormone (TSH) 2.36 uIU/mL 0.358-3.74 [facility] Work Phone: No Panel Informationon 08-09 Free Triiodothyronine (T3) pg/dL 3.1 pg/mL 2.18-3.98 [facility] Work Phone: Thyroid Stimulating Hormone (TSH) 3.86 uIU/mL 0.358-3.74 [facility] Work Phone: Homocysteine-Serumon 08-20- 018 Homocysteine-Serum 7.2 umol/L Normal <10.4 [facility] Comment on above: Result Comment: Homo cysteine is increased by functional deficiency offolate or vitamin B12. Testing for methylmalonic aciddifferentiates between these deficiencies. Other causesof increased homocysteine include renal failure, folateantagonists such as methotrexate and phenytoin, andexposure to nitrous oxide.Test Performed by [facility],[address] [place] [id number] Villela M.D., Ph.D., Director of [phone], [facility] [id number] Performed By: #### H OMOCYSTEINEQ ####[address] [place] [address] Homocysteine-Serumon 018 Age at Specimen Collection = Normal [facility] Comment on above: Performed By: #### H OMOCYSTEINEQ ####[address] [place] [address] CBC With Auto Diff.on 2016 Basophils Auto #/vol (Bld) 0.02 10*3/uL Normal 0.00-0.15 [facility] Comment on above: Order Comment: Regul atory Requirements State: Only Absolute Cell Counts are reported with their reference ranges. Performed By: #### C BC ####[facility] (DEFAULT)[address] [place], [place] [address] Basophils/100 WBC Auto (Bld) 0.3 % Normal [facility] Comment on above: Order Comment: Regul atory Requirements State: Only Absolute Cell Counts are reported with their reference ranges. Performed By: #### C BC ####[facility] (DEFAULT)[address], [place] [address] Eosinophils 0.01 10*3/uL Normal 0.00-0.70 [facility] Comment on above: Order Comment: Regul atory Requirements State: Only Absolute Cell Counts are reported with their reference ranges. Performed By: #### C BC ####[facility] (DEFAULT)[address] [place], [place] [address] Eosinophils/100 leukocytes 0.2 % Normal [facility] Comment on above: Order Comment: Regul atory Requirements State: Only Absolute Cell Counts are reported with their reference ranges. Performed By: #### C BC ####[facility] (DEFAULT)[address] [place] [address] Erythrocyte distribution width Auto Ratio (RBC) 11.5 % Normal 11.0-16.0 [facility] Comment on above: Order Comment: Regul atory Requirements State: Only Absolute Cell Counts are reported with their reference ranges. Performed By: #### C BC ####[facility] (DEFAULT)[address] [place] [address] Erythrocytes (RBC) 4.32 10*6/uL Normal 2.50-5.50 [facility] Comment on above: Order Comment: Regul atory Requirements State: Only Absolute Cell Counts are reported with their reference ranges. Performed By: #### C BC ####[facility] (DEFAULT)[address] [place] [address] Hematocrit (HCT) 37.2 % Low 38.0-46.0 [facility] Comment on above: Order Comment: Regul atory Requirements State: Only Absolute Cell Counts are reported with their reference ranges. Performed By: #### C BC ####[facility] (DEFAULT)[address] [place] [address] Hemoglobin mass conc (Bld) 13.3 g/dL Normal 12.0-15.0 [facility] Comment on above: Order Comment: Regul atory Requirements State: Only Absolute Cell Counts are reported with their reference ranges. Performed By: #### C BC ####[facility] (DEFAULT)[address] [place] [address] Ig% 0.3 % Normal 0.0-4.0 [facility] Comment on above: Order Comment: Regul atory Requirements State: Only Absolute Cell Counts are reported with their reference ranges. Performed By: #### C BC ####[facility] (DEFAULT)[address] [place] [address] Lymphocytes 1.78 10*3/uL Normal 1.10-4.40 [facility] Comment on above: Order Comment: Regul atory Requirements State: Only Absolute Cell Counts are reported with their reference ranges. Performed By: #### C BC ####[facility] (DEFAULT)[address], [place] [address] Lymphocytes variants/100 leukocytes 26.8 % Normal [facility] Comment on above: Order Comment: Regul atory Requirements State: Only Absolute Cell Counts are reported with their reference ranges. Performed By: #### C BC ####[facility] (DEFAULT)[address] [place] [address] MCH 30.8 pg Normal 26.0-38.0 [facility] Comment on above: Order Comment: Regul atory Requirements State: Only Absolute Cell Counts are reported with their reference ranges. Performed By: #### C BC ####[facility] (DEFAULT)[address] [place] [address] MCHC mass conc (RBC) 35.8 g/dL Normal 31.0-37.0 [facility] Comment on above: Order Comment: Regul atory Requirements State: Only Absolute Cell Counts are reported with their reference ranges. Performed By: #### C BC ####[facility] (DEFAULT)[address] [place] [address] MCV 86 fL Normal 78-94 [facility] Comment on above: Order Comment: Regul atory Requirements State: Only Absolute Cell Counts are reported with their reference ranges. Performed By: #### C BC ####[facility] (DEFAULT)[address] [place] [address] Monocytes 0.57 10*3/uL Normal 0.20-0.95 [facility] Comment on above: Order Comment: Regul atory Requirements State: Only Absolute Cell Counts are reported with their reference ranges. Performed By: #### C BC ####[facility] (DEFAULT)[address] [place] [address] Monocytes/100 leukocytes 8.6 % Normal [facility] Comment on above: Order Comment: Regul atory Requirements State: Only Absolute Cell Counts are reported with their reference ranges. Performed By: #### C BC ####[facility] (DEFAULT)[address], [place] [address] Neutrophils 4.25 10*3/uL Normal 1.50-7.50 [facility] Comment on above: Order Comment: Regul atory Requirements State: Only Absolute Cell Counts are reported with their reference ranges. Performed By: #### C BC ####[facility] (DEFAULT)[address], [place] [address] Neutrophils/100 WBC Auto (Bld) 63.8 % Normal [facility] Comment on above: Order Comment: Regul atory Requirements State: Only Absolute Cell Counts are reported with their reference ranges. Performed By: #### C BC ####[facility] (DEFAULT)[address] [place] [address] Platelet mean volume (PMV) 9.3 fL Normal 9.0-13.0 [facility] Comment on above: Order Comment: Regul atory Requirements State: Only Absolute Cell Counts are reported with their reference ranges. Performed By: #### C BC ####[facility] (DEFAULT)[address] [place] [address] Platelets 283 U/uL Normal 150-450 [facility] Comment on above: Order Comment: Regul atory Requirements State: Only Absolute Cell Counts are reported with their reference ranges. Performed By: #### C BC ####[facility] (DEFAULT)[address] [place] [address] WBC (Leukocytes) 6.65 10*3/uL Normal 4.80-11.80 [facility] Comment on above: Order Comment: Regul atory Requirements State: Only Absolute Cell Counts are reported with their reference ranges. Performed By: #### C BC ####[facility] (DEFAULT)[address] [place] [address] Homocyst(e)ine, Plasmaon Homocyst(e)ine, Plasma HOMOCYSTEINE: 5.8 Units: umol/L Ref Range: 5.0-15.0 Testing Performed At: [facility] [address] [place] [address] Normal [facility] Comment on above: Performed By: #### H CYST ####[facility] (DEFAULT)[address] [place] [address] Protein C Agon 01-23-2017 Protein C Ag PROTEIN C ANTIGEN: 9 8 Units: % Ref Range: 60-125Testing Performed At: [facility] [address] [place] [address]Sutzqt, full-term infants or healthy premature infants may have decreased levels of Protein-C Antigen (15-50%), which may not reach adult levels until later inchildhood or early adolescence. Normal [facility] Comment on above: Performed By: #### P ROTCAG ####[facility] (DEFAULT)[address], [place] [address] Culture, urine Bacteria identified Cx Nom (U) Streptococcus agalactiae (B) [facility] Work Phone: Gram stain for investigation of transfusion reaction Microscopic observation Gram stain Nom (Unsp spec) [facility] Work Phone: Thin prep Papanicolaou smear with manual screening Genital Culture Streptococcus agalac tiae (B) [facility] Work Phone: Genital Culture Mixed Joanne [facility] Work Phone: Vital Signs Date Time Vital Sign Value Performing Clinician Facility 12-19-2024 14:13-0400 Body height 160.02 cm PrintToPeerer DO Work Phone: [facility] 12-19-2024 14:110400 Body mass index (BMI) [Ratio] 27.5 kg/m2 Farzaneh Kt DO Work Phone: [facility] 12-19-2024 14:11040 Body weight 70.47 kg Farzaneh Kt DO Work Phone: [facility] 12-19-2024 14:11-040 Diastolic blood pressure 71 mm[Hg] Farzaneh Kt DO Work Phone: [facility] 12-19-2024 14:11-0400 Systolic blood pressure 114 mm[Hg] Farzaneh Kt DO Work Phone: 3(564)202-174198 [place] [address] 12-09-2024 10:07-0400 Body height 160.02 cm Farzaneh Kt DO Work Phone: 9(583)040-963981 [place] [address] 12-09-2024 10:07-0400 Body mass index (BMI) [Ratio] 26.9 kg/m2 Farzaneh Kt DO Work Phone: 5(544)273-367381 [place] [address] 12-09-2024 10:07-0400 Body weight 68.94 kg Farzaneh Kt DO Work Phone: 6(904)220-046981 [place] [address] 12-09-2024 10:07-0400 Diastolic blood pressure 70 mm[Hg] Farzaneh Kt DO Work Phone: 0(392)573-834381 [place] [address] 12-09-2024 10:07-0400 Systolic blood pressure 113 mm[Hg] Farzaneh Kt DO Work Phone: 6(562)224-933481 [place] [address] 11-25-2024 10:04-0400 Body height 160.02 cm Farzaneh Kt DO Work Phone: 2(046)436-029181 [place] [address] 11-25-2024 10:04-0400 Body mass index (BMI) [Ratio] 25.9 kg/m2 Afrzaneh Kt DO Work Phone: 4(684)860-253681 [place] [address] 11-25-2024 10:04-0400 Body weight 66.39 kg Farzaneh Kt DO Work Phone: 6(962)365-980081 [place] [address] 11-25-2024 10:04-0400 Diastolic blood pressure 69 mm[Hg] Farzaneh Kt DO Work Phone: 4(658)350-697781 [place] [address] 11-25-2024 10:04-0400 Systolic blood pressure 111 mm[Hg] Farzaneh Kt DO Work Phone: 4(706)635-905481 [place] [address] 11-16-2024 09:11-0400 Body mass index (BMI) [Ratio] 26.2 kg/m2 Farzaneh Kt DO Work Phone: 8(349)863-735081 [place] [address] 11-16-2024 09:11-0400 Body weight 67.18 kg Farzaneh Kt DO Work Phone: 0(564)799-923281 [place] [address] 11-16-2024 09:11-0400 Diastolic blood pressure 72 mm[Hg] Farzaneh Kt DO Work Phone: 3(431)966-693781 [place] [address] 11-16-2024 09:11-0400 Systolic blood pressure 117 mm[Hg] Farzaneh Kt DO Work Phone: 2(053)720-630681 [place] [address] 11-04-2024 15:31-0400 Body mass index (BMI) [Ratio] 26.5 kg/m2 Farzaneh Kt DO Work Phone: 7(782)573-027381 [place] [address] 11-04-2024 15:31-0400 Body weight 68.03 kg Farzaneh Kt DO Work Phone: 9(160)469-477881 [place] [address] 11-04-2024 15:31-0400 Diastolic blood pressure 70 mm[Hg] Farzaneh Kt DO Work Phone: 5(924)425-420681 [place] [address] 11-04-2024 15:31-0400 Heart rate 83 /min Farzaneh Kt DO Work Phone: 2(229)533-745781 [place] [address] 11-04-2024 15:31-0400 SaO2% (BldA) [Mass fraction] 97 % Farzaneh Kt DO Work Phone: 6(992)111-444581 [place] [address] 11-04-2024 15:31-0400 Systolic blood pressure 107 mm[Hg] Farzaneh Kt DO Work Phone: 0(477)101-367281 [place] [address] 10-26-2024 10:28-0400 Body height 160.02 cm Farzaneh Tk DO Work Phone: 3(410)499-723381 [place] [address] 10-26-2024 10:28-0400 Body mass index (BMI) [Ratio] 26.2 kg/m2 Farzaneh Kt DO Work Phone: 3(176)283-127581 [place] [address] 10-26-2024 10:28-0400 Body weight 67.13 kg Farzaneh Kt DO Work Phone: 6(587)200-477481 [place] [address] 10-26-2024 10:28-0400 Diastolic blood pressure 74 mm[Hg] Farzaneh Kt DO Work Phone: 4(153)594-497098 [place] [address] 10-26-2024 10:28-0400 Systolic blood pressure 114 mm[Hg] Farzaneh Kt DO Work Phone: 3(273)418-814181 [place] [address] 10-12-2024 10:56-0400 Body mass index (BMI) [Ratio] 25.5 kg/m2 Farzaneh Kt DO Work Phone: 2(278)700-235581 [place] [address] 10-12-2024 10:56-0400 Body weight 65.48 kg Farzaneh Kt DO Work Phone: 6(903)654-834981 [place] [address] 10-12-2024 10:56-0400 Diastolic blood pressure 77 mm[Hg] Farzaneh Kt DO Work Phone: 4(877)289-007781 [place] [address] 10-12-2024 10:56-0400 Systolic blood pressure 117 mm[Hg] Farzaneh Kt DO Work Phone: 5(276)976-695881 [place] [address] 09-30-2024 10:59-0400 Body mass index (BMI) [Ratio] 24.7 kg/m2 Farzaneh Kt DO Work Phone: 6(042)863-883481 [place] [address] 09-30-2024 10:59-0400 Body weight 63.5 kg Farzaneh Kt DO Work Phone: 7(092)784-070581 [place] [address] 09-30-2024 10:59-0400 Diastolic blood pressure 69 mm[Hg] Farzaneh Kt DO Work Phone: 7(056)845-801181 [place] [address] 09-30-2024 10:59-0400 Systolic blood pressure 108 mm[Hg] Farzaneh Kt DO Work Phone: 6(108)663-430781 [place] [address] 09-16-2024 11:23-0500 Body mass index (BMI) [Ratio] 24.6 kg/m2 Farzaneh Kt DO Work Phone: 6(772)602-549881 [place] [address] 09-16-2024 11:23-0500 Body weight 63.04 kg Farzaneh Kt DO Work Phone: 7(902)212-420281 [place] [address] 09-16-2024 11:23-0500 Diastolic blood pressure 74 mm[Hg] Farzaneh Kt DO Work Phone: 5(247)254-332381 [place] [address] 09-16-2024 11:23-0500 Systolic blood pressure 124 mm[Hg] Farzaneh Kt DO Work Phone: 6(670)884-822881 [place] [address] 08-17-2024 14:58-0500 Body height 160.02 cm Farzaneh Kt DO Work Phone: 1(906)986-979681 [place] [address] 08-17-2024 14:58-0500 Body mass index (BMI) [Ratio] 23.6 kg/m2 Farzaneh Kt DO Work Phone: 8(703)190-268681 [place] [address] 08-17-2024 14:58-0500 Body weight 60.44 kg Farzaneh Kt DO Work Phone: 9(278)693-246681 [place] [address] 08-17-2024 14:58-0500 Diastolic blood pressure 62 mm[Hg] Farzaneh Kt DO Work Phone: 3(321)755-498781 [place] [address] 08-17-2024 14:58-0500 Systolic blood pressure 110 mm[Hg] Farzaneh Kt DO Work Phone: 9(175)424-851781 [place] [address] 08-01-2024 13:32-0500 Body mass index (BMI) [Ratio] 23.2 kg/m2 Farzaneh Kt DO Work Phone: 4(969)997-737581 [place] [address] 08-01-2024 13:32-0500 Body weight 59.42 kg Farzaneh Kt DO Work Phone: 9(410)344-127681 [place] [address] 08-01-2024 13:32-0500 Diastolic blood pressure 80 mm[Hg] Farzaneh Kt DO Work Phone: 6(693)702-749381 [place] [address] 08-01-2024 13:32-0500 Systolic blood pressure 129 mm[Hg] Farzaneh Kt DO Work Phone: 1(802)186-409081 [place] [address] 07-20-2024 15:37-0500 Body mass index (BMI) [Ratio] 22.7 kg/m2 Farzaneh Kt DO Work Phone: 9(343)463-688881 [place] [address] 07-20-2024 15:37-0500 Body weight 58.28 kg Farzaneh Kt DO Work Phone: 0(662)818-545281 [place] [address] 07-20-2024 15:37-0500 Diastolic blood pressure 74 mm[Hg] Farzaneh Kt DO Work Phone: 0(060)547-479981 [place] [address] 07-20-2024 15:37-0500 Systolic blood pressure 112 mm[Hg] Farzaneh Kt DO Work Phone: 3(584)593-159281 [place] [address] 06-29-2024 10:18-0500 Body mass index (BMI) [Ratio] 22.4 kg/m2 Farzaneh Kt DO Work Phone: 7(285)346-924581 [place] [address] 06-29-2024 10:18-0500 Body weight 57.6 kg Farzaneh Kt DO Work Phone: 5(841)438-066981 [place] [address] 06-29-2024 10:18-0500 Diastolic blood pressure 78 mm[Hg] Farzaneh Kt DO Work Phone: 1(787)399-642881 [place] [address] 06-29-2024 10:18-0500 Systolic blood pressure 121 mm[Hg] Farzaneh Kt DO Work Phone: 8(042)626-352781 [place] [address] 06-17-2024 08:47-0500 Body mass index (BMI) [Ratio] 22.7 kg/m2 Farzaneh Kt DO Work Phone: 5(200)485-284681 [place] [address] 06-17-2024 08:47-0500 Body weight 58.17 kg Farzaneh Kt DO Work Phone: 3(912)993-778381 [place] [address] 06-17-2024 08:47-0500 Diastolic blood pressure 84 mm[Hg] Farzaneh Kt DO Work Phone: 1(890)150-949881 [place] [address] 06-17-2024 08:47-0500 Systolic blood pressure 127 mm[Hg] Farzaneh Kt DO Work Phone: 1(458)680-091581 [place] [address] 09-24-2023 07:38-0400 Body height 160.[address] Warren Melendez Work Phone: [facility] 09-24-2023 07:35-0400 Body mass index (BMI) [Ratio] 22.8 kg/m2 Dr. Warren Melendez Work Phone: [facility] 09-24-2023 07:35-0400 Body weight 58.[address] Warren Melendez Work Phone: [facility] 09-24-2023 07:35-0400 Diastolic blood pressure 71 mm[Hg] Dr. Warren Melendez Work Phone: [facility] 09-24-2023 07:35-0400 Systolic blood pressure 111 mm[Hg] Dr. Warren Melendez Work Phone: [facility] 09-10-2023 07:52-0500 Body mass index (BMI) [Ratio] 23.7 kg/m2 Dr. Warren Melendez Work Phone: [facility] 09-10-2023 07:52-0500 Body weight 60.[address] Warren Melendez Work Phone: [facility] 09-10-2023 07:52-0500 Diastolic blood pressure 76 mm[Hg] Dr. Warren Melendez Work Phone: [facility] 09-10-2023 07:52-0500 Systolic blood pressure 114 mm[Hg] Dr. Warren Melendez Work Phone: [facility] 10-30-2022 10:29-0400 Body height 160.[address] Warren Melendez Work Phone: [facility] 10-30-2022 10:29-0400 Body mass index (BMI) [Ratio] 24.8 kg/m2 Dr. Warren Melendez Work Phone: [facility] 10-30-2022 10:29-0400 Body temperature 98.1 [degF] Dr. Warren Melendez Work Phone: [facility] 10-30-2022 10:29-0400 Body weight 63.[address] Warren Melendez Work Phone: [facility] 10-30-2022 10:29-0400 Diastolic blood pressure 79 mm[Hg] Dr. Warren Melendez Work Phone: [facility] 10-30-2022 10:29-0400 Heart rate 69 /min Dr. Warren Melendez Work Phone: [facility] 10-30-2022 10:29-0400 Respiratory rate 16 /min Dr. Warren Melendez Work Phone: [facility] 10-30-2022 10:29-0400 SaO2% (BldA) [Mass fraction] 85 % Dr. Warren Melendez Work Phone: [facility] 10-30-2022 10:29-0400 Systolic blood pressure 126 mm[Hg] Dr. Warren Melendez Work Phone: [facility] 08-20-2022 09:30-0500 Body mass index (BMI) [Ratio] 25 kg/m2 Dr. Warren Melendez Work Phone: 1(272)304-103576 [place] [address] 08-20-2022 09:30-0500 Body weight 64.[address] Warren Melendez Work Phone: [facility] 08-20-2022 09:30-0500 Diastolic blood pressure 86 mm[Hg] Dr. Warren Melendez Work Phone: [facility] 08-20-2022 09:30-0500 Systolic blood pressure 122 mm[Hg] Dr. Warren Melendez Work Phone: [facility] 07-11-2022 14:01-0500 Diastolic blood pressure 84 mm[Hg] Dr. Warren Melendez Work Phone: [facility] 07-11-2022 14:01-0500 Heart rate 85 /min Dr. Warren Melendez Work Phone: [facility] 07-11-2022 14:01-0500 SaO2% (BldA) [Mass fraction] 99 % Dr. Warren Melendez Work Phone: [facility] 07-11-2022 14:01-0500 Systolic blood pressure 128 mm[Hg] Dr. Warren Melendez Work Phone: [facility] 07-11-2022 14:00-0500 Body temperature 98.2 [degF] Dr. Warren Melendez Work Phone: [facility] 07-11-2022 14:00-0500 Respiratory rate 15 /min Dr. Warren Melendez Work Phone: [facility] 07-09-2022 18:59-0500 Body height 160.[address] Warren Melendez Work Phone: [facility] Work Phone: 07-09-2022 18:59-0500 Body mass index (BMI) [Ratio] 28.5 kg/m2 Dr. Warren Melendez Work Phone: [facility] 07-09-2022 18:59-0500 Body weight 73.[address] Warren Melendez Work Phone: [facility] 07-03-2022 11:06-0500 Body mass index (BMI) [Ratio] 28.5 kg/m2 Dr. Warren Melendez Work Phone: [facility] Work Phone: 07-03-2022 11:06-0500 Body weight 73.[address] Warren Melendez Work Phone: [facility] Work Phone: 07-03-2022 11:06-0500 Diastolic blood pressure 76 mm[Hg] Dr. Warren Melendez Work Phone: [facility] Work Phone: 07-03-2022 11:06-0500 Systolic blood pressure 118 mm[Hg] Dr. Warren Melendez Work Phone: [facility] Work Phone: 06-27-2022 11:02-0500 Body height 160.[address] Warren Melendez Work Phone: [facility] Work Phone: 06-27-2022 11:01-0500 Body mass index (BMI) [Ratio] 28.5 kg/m2 Dr. Warren Melendez Work Phone: [facility] Work Phone: 06-27-2022 11:01-0500 Body weight 73.[address] Warren Melendez Work Phone: [facility] Work Phone: 06-27-2022 11:01-0500 Diastolic blood pressure 77 mm[Hg] Dr. Warren Melendez Work Phone: [facility] Work Phone: 06-27-2022 11:01-0500 Systolic blood pressure 126 mm[Hg] Dr. Warren Melendez Work Phone: [facility] Work Phone: 06-16-2022 09:13-0500 Body mass index (BMI) [Ratio] 28.3 kg/m2 Dr. Warren Melendez Work Phone: [facility] Work Phone: 06-16-2022 09:13-0500 Body weight 72.[address] Warren Melendez Work Phone: [facility] Work Phone: 06-16-2022 09:13-0500 Diastolic blood pressure 62 mm[Hg] Dr. Warren Melendez Work Phone: [facility] Work Phone: 06-16-2022 09:13-0500 Systolic blood pressure 124 mm[Hg] Dr. Warren Melendez Work Phone: [facility] Work Phone: 06-02-2022 09:04-0500 Body mass index (BMI) [Ratio] 27.6 kg/m2 Dr. Warren Melendez Work Phone: [facility] Work Phone: 06-02-2022 09:04-0500 Body weight 70.[address] Warren Melendez Work Phone: [facility] Work Phone: 06-02-2022 09:04-0500 Diastolic blood pressure 76 mm[Hg] Dr. Warren Melendez Work Phone: [facility] Work Phone: 06-02-2022 09:04-0500 Systolic blood pressure 132 mm[Hg] Dr. Warren Melendez Work Phone: [facility] Work Phone: 05-23-2022 09:27-0500 Body height 160.[address] Warren Melendez Work Phone: [facility] Work Phone: 05-23-2022 09:26-0500 Body mass index (BMI) [Ratio] 27.6 kg/m2 Dr. Warren Melendez Work Phone: [facility] Work Phone: 05-23-2022 09:26-0500 Body weight 70.[address] Warren Melendez Work Phone: [facility] Work Phone: 05-23-2022 09:26-0500 Diastolic blood pressure 69 mm[Hg] Dr. Warren Melendez Work Phone: [facility] Work Phone: 05-23-2022 09:26-0500 Systolic blood pressure 120 mm[Hg] Dr. Warren Melendez Work Phone: [facility] Work Phone: 05-09-2022 11:42-0400 Body mass index (BMI) [Ratio] 26.9 kg/m2 Dr. Warren Melendez Work Phone: [facility] Work Phone: 05-09-2022 11:42-0400 Body weight 68.[address] Warren Melendez Work Phone: [facility] Work Phone: 05-09-2022 11:42-0400 Diastolic blood pressure 60 mm[Hg] Dr. Warren Melendez Work Phone: [facility] Work Phone: 05-09-2022 11:42-0400 Systolic blood pressure 118 mm[Hg] Dr. Warren Melendez Work Phone: [facility] Work Phone: 04-21-2022 10:45-0400 Body height 160.[address] Warren Melendez Work Phone: [facility] Work Phone: 04-21-2022 10:45-0400 Body mass index (BMI) [Ratio] 26.1 kg/m2 Dr. Warren Melendez Work Phone: [facility] Work Phone: 04-21-2022 10:45-0400 Body weight 66.[address] Warren Melendez Work Phone: [facility] Work Phone: 04-21-2022 10:45-0400 Diastolic blood pressure 78 mm[Hg] Dr. Warren Melendez Work Phone: [facility] Work Phone: 04-21-2022 10:45-0400 Systolic blood pressure 124 mm[Hg] Dr. Warren Melendez Work Phone: [facility] Work Phone: 03-25-2022 15:42-0400 Body mass index (BMI) [Ratio] 25 kg/m2 Dr. Warren Melendez Work Phone: [facility] Work Phone: 03-25-2022 15:42-0400 Body weight 63.[address] Warren Melendez Work Phone: [facility] Work Phone: 03-25-2022 15:42-0400 Diastolic blood pressure 69 mm[Hg] Dr. Warren Melendez Work Phone: [facility] Work Phone: 03-25-2022 15:42-0400 Systolic blood pressure 111 mm[Hg] Dr. Warren Melendez Work Phone: [facility] Work Phone: 02-24-2022 10:51-0400 Body mass index (BMI) [Ratio] 23.3 kg/m2 Dr. Warren Melendez Work Phone: [facility] Work Phone: 02-24-2022 10:51-0400 Body weight 59.[address] Warren Melendez Work Phone: [facility] Work Phone: 02-24-2022 10:51-0400 Diastolic blood pressure 69 mm[Hg] Dr. Warren Melendez Work Phone: [facility] Work Phone: 02-24-2022 10:51-0400 Systolic blood pressure 110 mm[Hg] Dr. Warren Melendez Work Phone: [facility] Work Phone: 01-28-2022 09:31-0400 Body mass index (BMI) [Ratio] 22 kg/m2 Dr. Warren Melendez Work Phone: [facility] Work Phone: 01-28-2022 09:31-0400 Body weight 56.[address] Warren Melendez Work Phone: [facility] Work Phone: 01-28-2022 09:31-0400 Diastolic blood pressure 60 mm[Hg] Dr. Warren Melendez Work Phone: [facility] Work Phone: 01-28-2022 09:31-0400 Systolic blood pressure 118 mm[Hg] Dr. Warren Melendez Work Phone: [facility] Work Phone: 01-08-2022 09:38-0400 Body height 160.[address] Warren Melendez Work Phone: [facility] Work Phone: 01-08-2022 08:09-0400 Body mass index (BMI) [Ratio] 21.4 kg/m2 Dr. Warren Melendez Work Phone: [facility] Work Phone: 01-08-2022 08:09-0400 Body weight 54.[address] Warren Melendez Work Phone: [facility] Work Phone: 01-08-2022 08:09-0400 Diastolic blood pressure 60 mm[Hg] Dr. Warren Melendez Work Phone: [facility] Work Phone: 01-08-2022 08:09-0400 Systolic blood pressure 110 mm[Hg] Dr. Warren Melendez Work Phone: [facility] Work Phone: 01-01-2022 10:34-0400 Body mass index (BMI) [Ratio] 21.2 kg/m2 Dr. Warren Melendez Work Phone: [facility] Work Phone: 01-01-2022 10:34-0400 Body weight 54.[address] Warren Melendez Work Phone: [facility] Work Phone: 01-01-2022 10:34-0400 Diastolic blood pressure 82 mm[Hg] Dr. Warren Melendez Work Phone: [facility] Work Phone: 01-01-2022 10:34-0400 Systolic blood pressure 120 mm[Hg] Dr. Warren Melendez Work Phone: [facility] Work Phone: 12-05-2021 14:30-0400 Diastolic blood pressure 68 mm[Hg] Dr. Warren Melendez Work Phone: [facility] Work Phone: 12-05-2021 14:30-0400 Systolic blood pressure 112 mm[Hg] Dr. Warren Melendez Work Phone: [facility] Work Phone: 12-05-2021 14:30-0400 Diastolic blood pressure 68 mm[Hg] Dr. Warren Melendez Work Phone: [facility] Work Phone: 12-05-2021 14:30-0400 Systolic blood pressure 112 mm[Hg] Dr. Warren Melendez Work Phone: [facility] Work Phone: 12-05-2021 14:01-0400 Body mass index (BMI) [Ratio] 21.4 kg/m2 Dr. Warren Melendez Work Phone: [facility] Work Phone: 12-05-2021 14:01-0400 Body weight 54.[address] Warren Melendez Work Phone: [facility] Work Phone: 12-05-2021 14:01-0400 Body height 160.[address] Warren Melendez Work Phone: [facility] Work Phone: 12-05-2021 14:01-0400 Body mass index (BMI) [Ratio] 21.4 kg/m2 Dr. Warren Melendez Work Phone: [facility] Work Phone: 12-05-2021 14:01-0400 Body weight 54.[address] Warren Melendez Work Phone: [facility] Work Phone: 04-23-2017 13:41-0400 BP Diastolic 78 mm[Hg] Padma Lopez [facility] Work Phone: 04-23-2017 13:41-0400 BP Systolic 128 mm[Hg] Padma Lopez [facility] Work Phone: 04-23-2017 13:41-0400 Pulse (Heart Rate) 94 /min Padma Lopez [facility] Work Phone: 04-23-2017 13:41-0400 Weight 51.71 kg Padma Lopez [facility] Work Phone: Encounters Encounter Date Encounter Type Care Provider Facility Start: 12-19-2024 End: 12-19-[address] Keshia Galvez DO -[facility] Work Phone: Start: 12-19-2024 End: 12-19-2024 ambulatory Farzaneh Kt DO Work Phone: [facility] Work Phone: Start: 12-09-2024 End: 12-09-2024 Patient encounter procedure Justina Guido CNM -[facility] Work Phone: Start: 12-09-2024 End: 12-09-2024 ambulatory Farzaneh Kt DO Work Phone: [facility] Work Phone: Start: 11-25-2024 End: 11-25-[address] Pam Koo MD -[facility] Work Phone: Start: 11-25-2024 End: 11-25-2024 ambulatory Farzaneh Kt DO Work Phone: [facility] Work Phone: Start: 11-16-2024 End: 11-16-[address] Pam Koo MD -[facility] Work Phone: Start: 11-16-2024 End: 11-16-2024 ambulatory Farzaneh Kt VSC Facility:[facility] Start: 11-04-2024 End: 11-04-[address] Moises Mazariegos MD -[facility] Work Phone: Start: 11-04-2024 End: 11-04-2024 ambulatory Farzaneh Kt VSC Facility:[facility] Start: 10-28-2024 End: 10-28-2024 ambulatory Farzaneh Kt DO Work Phone: [facility] Work Phone: Start: 10-28-2024 End: 10-28-[address] Pam Koo MD -Laboratory Work Phone: Start: 10-28-2024 End: 10-28-2024 ambulatory Farzaneh Kt VSC Facility:[facility] Start: 10-26-2024 End: 10-26-[address] aPm Koo MD -[facility] Work Phone: Start: 10-26-2024 End: 10-26-2024 ambulatory Farzaneh Kt VSC Facility:[facility] Start: 10-26-2024 End: 10-26-2024 ambulatory Farzaneh Kt VSC Facility:[facility] Start: 10-12-2024 End: 10-12-[address] Pam Koo MD -[facility] Work Phone: Start: 10-12-2024 End: 10-12-2024 ambulatory Farzaneh Kt VSC Facility:[facility] Start: 09-30-2024 End: 09-30-2024 Patient encounter procedure Justina Guido CNM -[facility] Work Phone: Start: 09-30-2024 End: 09-30-2024 ambulatory Farzaneh Kt VSC Facility:[facility] Start: 09-16-2024 End: 09-16-2024 Patient encounter procedure Reshma Driscoll CNM -[facility] Work Phone: Start: 09-16-2024 End: 09-16-2024 ambulatory Farzaneh Kt VSC Facility:[facility] Start: 09-05-2024 End: 09-05-2024 ambulatory Farzaneh Kt DO Work Phone: [facility] Work Phone: Start: 09-05-2024 End: 09-05-2024 Patient encounter procedure Reshma Driscoll CNM -Lab, [facility] Start: 09-05-2024 End: 09-05-2024 ambulatory Farzaneh Kt VSC Facility:[facility] Start: 09-02-2024 End: 09-02-2024 ambulatory Farzaneh Meraz DO Work Phone: [facility] Work Phone: Start: 09-02-2024 End: 09-02-[address] Pam Koo MD -Ultrasound, [facility] Work Phone: Start: 09-02-2024 End: 09-02-2024 ambulatory Farzaneh Kt VSC Facility:[facility] Start: 08-17-2024 End: 08-17-2024 Patient encounter procedure Caroline GRACIAC -[facility] Work Phone: Start: 08-17-2024 End: 08-17-2024 ambulatory Farzaneh Martinezer VSC Facility:[facility] Start: 08-17-2024 End: 08-17-2024 ambulatory Farzaneh Kt VSC Facility:[facility] Start: 08-01-2024 End: 08-01-2024 Patient encounter procedure Reshma Driscoll CNM -[facility] Work Phone: Start: 08-01-2024 End: 08-01-2024 ambulatory Farzaneh Martinezer VSC Facility:[facility] Start: 07-20-2024 End: 07-20-2024 Patient encounter procedure Caroline ROSALES -[facility] Work Phone: Start: 07-20-2024 End: 07-20-2024 ambulatory Farzaneh Kt VSC Facility:[facility] Start: 07-01-2024 End: 07-01-2024 ambulatory [facility] Start: 06-29-2024 End: 06-29-[address] Pam Koo MD -[facility] Work Phone: Start: 06-29-2024 End: 06-29-2024 ambulatory Farzaneh Kt VSC Facility:[facility] Start: 06-17-2024 End: 06-17-2024 Patient encounter procedure Justina Guido CNM -[facility] Work Phone: Start: 06-17-2024 End: 06-17-2024 ambulatory Farzaneh Pereznger VSC Facility:[facility] Start: 06-17-2024 End: 06-17-2024 ambulatory Farzaneh Pereznger VSC Facility:[facility] Start: 05-25-2024 End: 05-25-2024 Patient encounter procedure Justina Guido CNM -Laboratory Work Phone: Start: 05-25-2024 End: 05-25-2024 ambulatory Farzaneh Pereznger VSC Facility:[facility] Start: 05-23-2024 End: 05-23-2024 Patient encounter procedure Justina Guido CNM -Laboratory Work Phone: Start: 05-23-2024 End: 05-23-2024 ambulatory Farzaneh Kt VSC Facility:[facility] Start: 05-04-2024 End: 05-04-2024 ambulatory Farzaneh Kt VSC Facility:[facility] Start: 01-29-2024 End: 01-29-2024 ambulatory Keshia Andre Roger Facility:[facility] Start: 01-12-2024 ambulatory Pam Schwartz lity:[facility] Start: 01-11-2024 ambulatory Pam Schwartz lity:[facility] Start: 01-11-2024 End: 01-11-2024 ambulatory Pam Koo Facility:[facility] Start: 01-07-2024 End: 01-08-2024 ambulatory Pam Koo Facility:[facility] Start: 12-29-2023 End: 12-29-2023 ambulatory Reshma Driscoll Facility:[facility] Start: 12-29-2023 End: 12-29-2023 ambulatory Reshma Driscoll Facility:[facility] Start: 12-24-2023 End: 12-24-2023 ambulatory Pam Koo Facility:[facility] Start: 12-23-2023 End: 12-23-2023 ambulatory Reshma Driscoll Facility:[facility] Start: 09-25-2023 End: 09-25-[address] Warren Melendez Work Phone: [facility] Work Phone: Start: 09-25-2023 End: 09-25-[address] [facility] Work [facility] Start: 09-24-2023 End: 09-24-[address] Warren Melendez Work Phone: [facility] @ Start: 09-21-2023 End: 09-21-[address] Warren Melendez Work Phone: [facility] Work Phone: Start: 09-21-2023 End: 09-21-[address] [facility] Start: 09-10-2023 End: 09-10-[address] Warren Melendez Work Phone: [facility] @ Start: 08-17-2023 End: 08-17-2023 ambulatory [facility] Work Phone: Start: 08-17-2023 End: 08-17-2023 Patient encounter procedure [facility] Work Phone: Start: 08-03-2023 End: 08-03-2023 Patient encounter procedure [facility] Work Phone: Start: 07-29-2023 End: 07-29-2023 ambulatory [facility] Work Phone: Start: 07-29-2023 End: 07-29-2023 Patient encounter procedure [facility] Work Phone: Start: 07-27-2023 End: 07-27-2023 ambulatory [facility] Work Phone: Start: 07-27-2023 End: 07-27-2023 [facility] Start: 05-25-2023 End: 05-25-2023 [facility] Start: 10-30-2022 End: 10-30-[address] Warren Melendez Work Phone: [facility] Start: 10-24-2022 End: 10-24-[address] Warren Melendez Work Phone: [facility] Work Phone: Start: 10-24-2022 End: 10-24-[address] [facility] Start: 08-20-2022 End: 08-20-[address] Warren Melendez Work Phone: [facility] Start: 07-11-2022 Non-patient / Non-visit Dr. Warren Melendez Work Phone: [facility] Start: 07-10-2022 Non-patient / Non-visit Dr. Warren Melendez Work Phone: [facility] Start: 07-09-2022 Non-patient / Non-visit Dr. Warren Melendez Work Phone: [facility] Start: 07-09-2022 End: 07-11-2022 Evaluation and management of inpatient Dr. Warren Melendez Work Phone: [facility] Start: 07-03-2022 End: 07-03-[address] Warren Melendez Work Phone: [facility] Start: 06-27-2022 End: 06-27-[address] Warren Melendez Work Phone: [facility] Start: 06-20-2022 End: 06-20-[address] Warren Melendez Work Phone: [facility] Work Phone: Start: 06-20-2022 End: 06-20-[address] Warren Melendez Work Phone: [facility] Ul[facility]ound Start: 06-16-2022 End: 06-16-[address] Warren Melendez Work Phone: [facility] Start: 06-02-2022 End: 06-02-[address] Warren Melendez Work Phone: [facility] Start: 05-23-2022 End: 05-23-[address] Warren Melendez Work Phone: [facility] Start: 05-23-2022 End: 05-23-[address] Warren Melendez Work Phone: [facility] Work Phone: Start: 05-23-2022 End: 05-23-[address] Warren Melendez Work Phone: [facility] Start: 05-09-2022 End: 05-09-[address] Warren Melendez Work Phone: [facility] Start: 04-21-2022 End: 04-21-[address] Warren Melendez Work Phone: [facility] Work Phone: Start: 04-21-2022 End: 04-21-[address] Warren Melendez Work Phone: [facility] Start: 03-25-2022 End: 03-25-[address] Warren Melendez Work Phone: [facility] Start: 02-24-2022 End: 02-24-[address] Warren Melendez Work Phone: [facility] Start: 01-28-2022 End: 01-28-[address] Warren Melendez Work Phone: [facility] Start: 01-08-2022 End: 01-08-[address] [facility] Start: 01-08-2022 End: 01-08-[address] Warren Melendez Work Phone: [facility] Start: 01-01-2022 End: 01-01-[address] Warren Melendez Work Phone: [facility] Start: 12-06-2021 End: 12-06-[address] [facility] Start: 12-05-2021 End: 12-05-[address] Warren Melendez Work Phone: [facility] Start: 11-19-2021 End: 11-19-2021 [facility] Start: 11-07-2021 End: 11-07-[address] Warren Melendez Work Phone: [facility] Start: 11-07-2021 Registered Recurring [facility] Start: 10-07-2021 End: 10-07-2021 Patient encounter procedure [facility] Start: 09-11-2021 End: 09-11-2021 Patient encounter procedure [facility] Start: 08-22-2021 Registered Recurring [facility] Start: 08-09-2021 End: 08-09-2021 [facility] Start: 10-30-2017 End: 10-30-2017 Ambulatory OPALLILIAM RAMIREZPES Facility:[facility] Start: 08-18-2017 End: 08-18-2017 [facility] Start: 06-03-2017 Ambulatory DARREN REYES Facility:[facility] Start: 04-23-2017 End: 04-23-2017 Ambulatory PADMA LOPEZ [facility] Start: 04-23-2017 Office outpatient visit 15 minutes Padma Lopez Work Phone: [facility] Start: 03-18-2017 End: 03-18-2017 Ambulatory ADRIÁN FLYNN Facility:[facility] Start: 02-06-2017 End: 02-06-[address] [facility] [place] Facility:[facility] Start: 01-23-2017 End: 01-23-2017 [facility] Start: 01-23-2017 End: 01-23-2017 Ambulatory [facility] Facility:[facility] Start: 01-19-2017 End: 01-19-[address] [facility] [place] Facility:[facility] Procedures Date Procedure Procedure Detail Performing Clinician Start: 10-26-2024 Serologic test for syphilis Farzaneh Meraz DO Work Phone: Start: 09-05-2024 Procedure Farzaneh dewey DO Work Phone: Start: 09-02-2024 Ultrasonography in f irst trimester Farzaneh Meraz DO Work Phone: Start: 06-17-2024 Urine culture Farzaneh davis DO Work Phone: Start: 06-20-2022 Ultrasound scan for growth Dr. Warren Melendez Work Phone: Start: 05-23-2022 Ultrasound scan for growth Dr. Warren Melendez Work Phone: Start: 12-05-[address] Warren Melendez Work Phone: Cytopathology proced ure, preparation of smear, genital source Dr. Warren Melendez Work Phone: Investigation of tra nsfusion reaction Dr. Warren Melendez Work Phone: Urine culture Dr. Warren sandhu Work Phone: Plan of Treatment Date Care Activity Detail Author Start: 07-11-2022 Patient discharge [facility] Start: 07-10-2022 End: 07-11-2022 [facility] Start: 07-10-2022 Administration of medication [facility] Start: 07-10-2022 Application of ice collar, cap or bag [facility] Start: 07-10-2022 Catheterization of vein [facility] Start: 07-10-2022 Introduction of urinary catheter [facility] Start: 07-10-2022 Measuring intake and output [facility] Start: 07-10-2022 Notification of physician [facility] Start: 07-10-2022 Procedure discontinued [facility] Start: 07-10-2022 Provision of activity privileges [facility] Start: 07-10-2022 Vital signs measurements [facility] Start: 07-09-2022 Admission procedure [facility] Start: 07-03-2019 Screening for malignant neoplasm of cervix PAP SMEAR [facility] Work Phone: Start: 03-13-2017 Influenza vaccination SEQUENTIAL INFLUENZA VACCINE (#1) [facility] Work Phone: Start: 2004 Vaccination for human papillomavirus HPV VACCINES (1 of 3 - Female 3 Dose Series) [employer] Work Phone: Start: 1993 Tetanus vaccination TETANUS EVERY 10 YR [facility] Work Phone: Liquid based cervica l cytology screening [facility] Patient referral [facility] Work Phone: T4 free measurement [facility] Thyroid stimulating hormone measurement [facility] Ultrasound scan for growth [facility] Work Phone: Ultrasound scan for growth [facility] Immunizations Immunization Date Immunization Notes Care Provider Fa irineo 04-02-2020 Diptheria,Tetanus,Pe rtuss is Vaccine [facility] 02-09-2020 tetanus toxoid, redu patt diphtheria toxoid, and acellular pertussis vaccine, adsorbed [facility] 02-09-2020 diphtheria, tetanus toxoids and acellular pertussis vaccine, unspecified formulation [facility] Work Phone: Payers Date Payer Category Payer Unknown [id number] 2023 Self-pay [id number] 2023 Unknown [id number] 2023 Unknown [id number] 2017 Unknown [id number] 2016 Private Health Insurance [id number] 2013 Unknown 2013 Medicaid [id number] 2012 Unknown [id number] 1993 Unknown [id number] 2.. [id number] 1993 Unknown [id number] 2. 840.1.137005.3.579.2.479 Unknown [id number] Unknown [id number] 2.16.8 40.1.338923.3.579.2.462 Unknown [id number] 2.16.8 40.1.048035.3.579.2.462 Unknown [id number] 2.16.8 40.1.686580.3.579.2.462 Unknown [id number] 2.16.8 40.1.551571.3.579.2.462 Unknown [id number] 2.16.8 40.1.140136.3.579.2.462 Unknown [id number] 2.16.8 40.1.101564.3.579.2.462 Unknown [id number] 2.16.8 40.1.986568.3.579.2.462 Unknown [id number] 2.16.8 40.1.014141.3.579.2.462 Unknown [id number] 2.16.8 40.1.678776.3.579.2.462 Unknown [id number] 2.16.8 40.1.431931.3.579.2.462 Unknown [id number] 2.16.8 40.1.336668.3.579.2.462 Unknown [id number] 2.16.8 40.1.907885.3.579.2.462 Unknown [id number] 2.16.8 40.1.889186.3.579.2.462 Unknown [id number] 2.16.8 40.1.309374.3.579.2.462 Unknown [id number] 2.16.8 40.1.475381.3.579.2.462 Unknown [id number] 2.16.8 40.1.634595.3.579.2.462 Unknown [id number] 2.16.8 40.1.440620.3.579.2.462 Unknown [id number] 2.16.8 40.1.253317.3.579.2.462 Unknown [id number] 2.16.8 40.1.177990.3.579.2.462 Unknown [id number] 2.16.8 40.1.420147.3.579.2.462 Unknown [id number] 2.16.8 40.1.122877.3.579.2.462 Unknown [id number] 2.16.8 40.1.523412.3.579.2.462 Unknown [id number] 2.16.8 40.1.473865.3.579.2.462 Unknown [id number] 2.16.8 40.1.130991.3.579.2.462 Unknown [id number] 2.16.8 40.1.700379.3.579.2.462 Unknown [id number] 2.16.8 40.1.449925.3.579.2.462 Unknown [id number] 2.16.8 40.1.119930.3.579.2.462 Unknown [id number] 2.16.8 40.1.468226.3.579.2.462 Unknown [id number] 2.16.8 40.1.148513.3.579.2.462 Unknown [id number] 2.16.8 40.1.906722.3.579.2.462 Unknown [id number] 2.16.8 40.1.570467.3.579.2.462 Unknown [id number] 2.16.8 40.1.561689.3.579.2.462 Unknown [id number] 2.16.8 40.1.856398.3.579.2.462 Unknown [id number] 2.16.8 40.1.436032.3.579.2.462 Unknown [id number] 2.16.8 40.1.642499.3.579.2.462 Social History Date Type Detail Facility Start: 04-23-2017 End: 06-03-2024 Tobacco smoking status UTIS Never smoker [facility] Sex Assigned At Not on file [employer] Cell Phone: Start: 06-17-2021 End: 09-24-2023 Tobacco smoking status [facility] Unknown if ever smoked [facility] Start: 03-14-2020 Non-smoker [facility] Start: 1995 Sex Assigned At Female W [facility] Start: 09-15-2024 End: 11-02-2024 Sex Female (finding) [facility] Medical Equipment Procedure Code Equipment Code Equipment Origin al Text Equipment Identifier Dates Blood Sugar Diagnostic (Blood Glucose Test) strip Start: 10-28-2024 Lancets (Droplet Lancets) 30 gauge misc Start: 10-28-2024 Blood Sugar Diagnostic (Blood Glucose Test) strip Start: 10-28-2024 Lancets (Droplet Lancets) 30 gauge misc Start: 10-28-2024 Blood Sugar Diagnostic (Blood Glucose Test) strip Start: 10-28-2024 Lancets (Droplet Lancets) 30 gauge misc Start: 10-28-2024 Blood Sugar Diagnostic (Blood Glucose Test) strip Start: 10-28-2024 Lancets (Droplet Lancets) 30 gauge misc Start: 10-28-2024 Goals Date Patient Goal Desired Activity /State Clinical Notes 09-25-2023 to 12-19-2024 Note Date & Type Note Facility 12-19-2024 Progress note [facility] 12-19-2024 Progress note Note Date/Time December 19, 2024 2:45pm [facility] [address], [address] [place] [address] OFFICE VISIT Date of Service: 12/19/24 MR#: [id number] Acct: [id number] Name: CECY GALLEGOS Rep #: [id number] : 1995 Provider: Dr. 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 Required: No Is patient in pain?: No Allergies banana Allergy (Mild, Verified 12/19/24 14:11) RASH Latex, Natural Rubber Allergy (Mild, Verified 12/19/24 14:11) Rash Medications ?Medication ?Instructions ?Recorded ?Confirmed ?Type vitamin#30 30 mg iron-10 1 cap PO DAILY pregn irene 04/07/19 12/19/24 History mg iron-folic acid 1 mg-omg3 capsule aspirin 81 mg tablet,delayed 81 mg PO DAILY 12/22/23 0 12/19/24 History release (Adult Aspirin Regimen) blood sugar diagnostic (Blood #120 ea 10/28/24 5 Rx Glucose Test strips) blood-glucose meter #1 ea 10/28/24 12/19/24 Rx lancets 30 gauge (Droplet Lancets) #200 ea 10/28/24 Rx metformin 500 mg tablet 500 mg PO QDAY #30 tabs 10/1212/19/24 Rx levothyroxine 50 mcg tablet 50 mcg PO DAILY #90 tabs 0 12/06/24 12/19/24 Rx Last Menstrual Period: 04/15/24 Zika: Zika virus screening: Negative : No PFSH PFSH Medical History History of miscarriage History of miscarriage, currently Early stage of Supervision of high-risk Non-smoker 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 SAB (spontaneous ) Thyroiditis (spontaneous vaginal delivery) Spontaneous rupture of amniotic membranes Thyroid disorder GBS (group B Streptococcus carrier), +RV culture, currently Thyroid disease affecting Supervision of high-risk Amenorrhea ASCUS of cervix with negative high risk HPV 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 Surgical History S/P dilation and curettage (~01/11/24) H/O wisdom tooth extraction Family History Father , BLOOD CLOT BLOOD CLOT Social History adopted: No household members: family housing: house number of children: 2 current occupational status: employed 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[employer] pets and animals: Yes (Outside dog and chickens) pets and animals: dog(s) and farm animals history of recent travel: No sexually active: Yes Smoking Status: Never smoker alcohol intake: never substance use type: does not use diet: gluten free well-balanced diet: daily or most days caffeine: No eating out: 1-3 times/week during the past year weight has: remained stable what type of physical activity do you participate in: walking and yoga frequency: 1-2 times per week duration: 15-30 minutes/day femi/zoroastrianism: Congregational seatbelt use: always do you feel safe at home: Yes 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 Date Name GA/Weeks Outcome Route Bth Weight Infant Gen Labor Lgth Anesthesia Del Locatn Provider FOB Unknown 03/2019 SAB spontaneous Unknown 07/2021 chemical Unknown 08/03/2023 miscarriage 6 spontaneous 04/29/20 River 39 live - full term 6# Male none [employer] [facility] Hanane Tayo 07/10/22 Annabelle Rouse 39 live - full term 7#11oz Female none [employer] [facility] Guido Mascoutah 01/11/24 spontaneous SM Delivery Date: 04/29/20 Last Updated by: Su MULLINS Delivery Date: 07/10/22 Last Updated by: Su MULLINS IOL Delivery Date: 01/11/24 Last Updated by: Keira Chen RN D&C HPI 36 wk ob Details: CECY GALLEGOS is a 29 year old who presents for routine OB visit. OB Visit GERMAN Calculator Estimated Delivery Date Method Current WG Current Estimate 01/20/25 LMP (Certain) 35w 3d Expected Delivery Route/Plan Labor Preferences- CB/BF classes: [] labor support person: [] labor intervention preferences: [] pain management options preferred: [] cut cord/dad catch: [] : [] PP control planned: [] discussed possible routes of delivery and associated risks: [] special requests: [] Specific Issue/Plans Covid status: [] Flu vaccine: [] Tdap vaccine: [] Rhogam: [] LARC form signed: [] Problem list reviewed and updated with the most current plan of care details and appropriate orders placed. Relevant counseling for the gestational age provided. Continue routine care and follow up unless otherwise noted in visit notes/problem list details Initial Weight: 128 lb Date -?-?-?-?-?-?-?-?-?-?-?-?- EGA Weight BP Urine Prot -?-?-?-?-?-?-?-?-?-?-?-?- Glucose FHR FuHt Pres Dilation -?-?-?-?-?-?-?-?-?-?-?-?- Effaced St Visit Note 06/17/24 -?-?-?-?-?-?-?-?-?-?-?-?- 9w 0d 128 lb 4 oz (+4 oz) 127/84 -?-?-?-?-?-?-?-?-?-?-?-?- 168 -?-?-?-?-?-?-?-?-?-?-?-?- LC- CRL 1.9cm co n with LMP. on progesterone for hx of multiple losses. no bleeding. declines nipt.tsh/free t3/4 added. 06/29/24 -?-?-?-?-?-?-?-?-?-?-?-?- 10w 5d 127 lb (-16 oz) 121/78 Negative -?-?-?-?-?-?-?-?-?-?-?-?- Negative 168 -?-?-?-?-?-?-?-?-?-?-?-?- SM- no vb lof cr amping 07/20/24 -?-?-?-?-?-?-?-?-?-?-?-?- 13w 5d 128 lb 8 oz (+8 oz) 112/74 Negative -?-?-?-?-?-?-?-?-?-?-?-?- Negative 163 -?-?-?-?-?-?-?-?-?-?-?-?- MH-No VB. Nausea resolved. Br US confirm FHT 08/01/24 -?-?-?-?-?-?-?-?-?-?-?-?- 15w 3d 131 lb (+3 lb) 129/80 Negative -?-?-?-?-?-?-?-?-?-?-?-?- Negative 146 -?-?-?-?-?-?-?-?-?-?-?-?- KW- no vb/crampi ng. movement and FHT with US today. doing well. 08/17/24 -?-?-?-?-?-?-?-?-?-?-?-?- 17w 5d 133 lb 4 oz (+5 lb 4 oz) 110/62 Negative -?-?-?-?-?-?-?-?-?-?-?-?- Negative 160 -?-?-?-?-?-?-?-?-?-?-?-?- MH-NO VB. Cheliin g movement. Nausea improved. Repeat thyroid labs today/Yair 09/16/24 -?-?-?-?-?-?-?-?-?-?-?-?- 22w 0d 139 lb (+11 lb) 124/74 Negative -?-?-?-?-?-?-?-?-?-?-?-?- Negative 150 -?-?-?-?-?-?-?-?-?-?-?-?- KW- no vb/lof/ct x. good fm US reviewed. 09/30/24 -?-?-?-?-?-?-?-?-?-?-?-?- 24w 0d 140 lb (+12 lb) 108/69 Negative -?-?-?-?-?-?-?-?-?-?-?-?- Negative 140 24 -?-?-?-?-?-?-?-?-?-?-?-?- LC- no vb/ctx/lo f. good fm. LC- no vb/ctx/lof. good fm. 28 week labs ordered, plans fresh test. 10/12/24 -?-?-?-?-?-?-?-?-?-?-?-?- 25w 5d 144 lb 6 oz (+16 lb 6 oz) 117/77 Negative -?-?-?-?-?-?-?-?-?-?-?-?- Negative 145 26 -?-?-?--?-?-?-?-?-?-?-?-?- SM- no vb lof go od fm nore gular ctx 10/26/24 -?-?-?-?-?-?-?-?-?-?-?-?- 27w 5d 148 lb (+20 lb) 114/74 Negative -?-?-?-?-?-?-?-?-?-?-?-?- Negative 140 28 -?-?-?-?-?-?-?-?-?-?-?-?- SM- no vb lof go od fm nor egualr ctx 11/16/24 -?-?-?-?-?-?-?-?-?-?-?-?- 30w 5d 148 lb 2 oz (+20 lb 2 oz) 117/72 Negative -?-?-?-?-?-?-?-?-?-?-?-?- Negative 135 31 -?-?-?-?-?-?-?-?-?-?-?-?- SM- SM- no vb lof good fm no reu galr ctx dicsussed nutrition education need to balance out eating carbs postprandials all great but fastings borderline. 11/25/24 -?-?-?-?-?-?-?-?-?-?-?-?- 32w 0d 146 lb 6 oz (+18 lb 6 oz) 111/69 Trace -?-?-?-?-?-?-?-?-?-?-?-?- Negative 145 32 -?-?-?-?-?-?-?-?-?-?-?-?- SM- no vb lof go od fm no regular ctx- had some jacey buitrago yesterday 12/09/24 -?-?-?-?-?-?-?-?-?-?-?-?- 34w 0d 152 lb (+24 lb) 113/70 Negative -?-?-?-?-?-?-?-?-?-?-?-?- Negative 140 33 -?-?-?-?-?-?-?-?-?-?-?-?- LC- all fasting under 95 and all pp under 120. no ctx/lof/vb. good fm. LC- all fasting under 95 and all pp under 120. no ctx/lof/vb. good fm. 36 week us ordered. 12/19/24 -?-?-?-?-?-?-?-?-?-?-?-?- 35w 3d 155 lb 6 oz (+27 lb 6 oz) 114/71 Negative -?-?-?-?-?-?-?-?-?-?-?-?- Negative 145 36 Cephalic -?-?-?-?-?-?-?-?-?-?-?-?- JV- cephalic on bedside scan. no complaints today. normal glucose levels. due for tsh. can not have epidural. ACOG First Trimester First Trimester: Desire for , Alcohol, Tobacco Cessation, Illicit/Recreational Drug/Substance Use, Intimate Partner Violence, Barriers to care, Unstable Housing, Communication Barriers, Environmental/Work Hazards, Anticipated Course of Care, Toxoplasmosis Precations, Use of Any medications, Sexual activity, Exercise, Dental Care, Sauna/Hot tub use, Seat Belt use, Childbirth classes/Hospital facilities, Travel, Indications for Ultrasound and Screening for Aneuploidy; Discussed Second Trimester Second Trimester: Signs and Symptoms of Labor, Selecting a care provider, Reproductive Life Planning & Contreception, Care Planning, Depression/Anxiety and Intimate Partner Violence; Discussed Tobacco Cessation Third Trimester Third Trimester: Pain Management Plans, Labor support person(s), Immediate Larc, Signs and Symptoms of Preeclampsia and Feeding No Results POC Urinalysis 2 Dip (Clinic) Office Urine Glucose Negative Last Edit by Ernestine Rene on 12/19/24 14: 40 Office Urine Protein Negative Last Edit by Ernestine Rene on 12/19/24 14: 40 Coding Level of Care Code OB Routine Diagnoses Gestational diabetes mellitus (GDM) affecting , antepartum O24.419 MTHFR mutation E72.12 Supervision of high risk in second trimester O09.92 Trimester: second trimester 35 weeks gestation of Z3A.35 Weeks of gestation: 35 weeks History of recurrent miscarriages N96 Chiari malformation type I G93.5 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 anatomy reviewed. (5) History of recurrent miscarriages: Status: Acute Comment: on progesterone until 10-12 weeks (6) Chiari malformation type I: Status: Chronic Comment: s/p neurosurgery consult. no regional anesthesia. 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: Status: Chronic (8) ASCUS of cervix with negative high risk HPV: Status: Acute Comment: repeat pap 3 yrs, 09/2023 Neg pap/Neg HPV Orders: Orders POC Urinalysis 2 Dip (Clinic) Today 12/19/24 1445 <Electronically signed by Keshia Myers DO> Date _ [facility] Signature: Date (if applicable) CC: ~ [facility] Work Phone: 1(388) 460-173405-16-2025 [facility] [address], [address] [place] [address] OFFICE VISIT Date of Service: 11/25/24 MR#: [id number] Acct: [id number] Name: CECY GALLEGOS Rep #: [id number] : 1995 Provider: Dr. Kalyan Koo MD Age/Sex: 29/F [place] [facility] Status: Signed Intake Vital Signs 06/29/24 10:20 10/12/24 10:59 11/16/24 09:19 11/25/24 10:04 Height 5 ft 3 in 5 ft 3 in 5 ft 3 in 5 ft 3 in Weight: 146 lb 6 oz BMI 25.9 BP 111/69 Intake Visit Reasons: 32 WK OB Pattern Painter Required: No Is patient in pain?: No Allergies banana Allergy (Mild, Verified 11/25/24 10:05) RASH Latex, Natural Rubber Allergy (Mild, Verified 11/25/24 10:05) Rash Medications ?Medication ?Instructions ?Recorded ?Confirmed ?Type vitamin#30 30 mg iron-10 1 cap PO DAILY pregn irene 04/07/19 11/25/24 History mg iron-folic acid 1 mg-omg3 capsule aspirin 81 mg tablet,delayed 81 mg PO DAILY 12/22/23 0 11/25/24 History release (Adult Aspirin Regimen) levothyroxine 50 mcg tablet 50 mcg PO DAILY #90 tabs 0 09/08/24 11/25/24 Rx blood sugar diagnostic (Blood #120 ea 10/28/24 5 Rx Glucose Test strips) blood-glucose meter #1 ea 10/28/24 11/25/24 Rx lancets 30 gauge (Droplet Lancets) #200 ea 10/28/24 Rx metformin 500 mg tablet 500 mg PO QDAY #30 tabs 10/1211/25/24 Rx Last Menstrual Period: 04/15/24 Zika: Zika virus screening: Negative : No PFSH PFSH Medical History History of miscarriage History of miscarriage, currently Early stage of Supervision of high-risk Non-smoker 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 SAB (spontaneous ) Thyroiditis (spontaneous vaginal delivery) Spontaneous rupture of amniotic membranes Thyroid disorder GBS (group B Streptococcus carrier), +RV culture, currently Thyroid disease affecting Supervision of high-risk Amenorrhea ASCUS of cervix with negative high risk HPV 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 Surgical History S/P dilation and curettage (~01/11/24) H/O wisdom tooth extraction Family History Father , BLOOD CLOT BLOOD CLOT Social History adopted: No household members: family housing: house number of children: 2 current occupational status: employed 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[employer] pets and animals: Yes (Outside dog and chickens) pets and animals: dog(s) and farm animals history of recent travel: No sexually active: Yes Smoking Status: Never smoker alcohol intake: never substance use type: does not use diet: gluten free well-balanced diet: daily or most days caffeine: No eating out: 1-3 times/week during the past year weight has: remained stable what type of physical activity do you participate in: walking and yoga frequency: 1-2 times per week duration: 15-30 minutes/day femi/zoroastrianism: Congregational seatbelt use: always do you feel safe at home: Yes 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 Date Name GA/Weeks Outcome Route Bth Weight Infant Gen Labor Lgth Anesthesia Del Locatn Provider FOB Unknown 03/2019 SAB spontaneous Unknown 07/2021 chemical Unknown 08/03/2023 miscarriage 6 spontaneous 04/29/20 [place] 39 live - full term 6# Male none [facility] Hanane Mascoutah 07/10/22 Annabelle Rouse 39 live - full term 7#11oz Female none [facility] Hay Mascoutah 01/11/24 spontaneous SM Delivery Date: 04/29/20 Last Updated by: Su MULLINS Delivery Date: 07/10/22 Last Updated by: Su MULLINS IOL Delivery Date: 01/11/24 Last Updated by: Keira hCen RN D&C HPI 32 WK OB Details: CECY GALLEGOS is a 29 year old who presents for routine OB visit. OB Visit GERMAN Calculator Estimated Delivery Date Method Current WG Current Estimate 01/20/25 LMP (Certain) 32w 0d Expected Delivery Route/Plan Labor Preferences- CB/BF classes: [] labor support person: [] labor intervention preferences: [] pain management options preferred: [] cut cord/dad catch: [] : [] PP control planned: [] discussed possible routes of delivery and associated risks: [] special requests: [] Specific Issue/Plans Covid status: [] Flu vaccine: [] Tdap vaccine: [] Rhogam: [] LARC form signed: [] Problem list reviewed and updated with the most current plan of care details and appropriate ordersplaced. Relevant counseling for the gestational age provided. Continue routine care and follow up unless otherwise noted in visit notes/problem list details Initial Weight: Not Recorded Date -?-?-?-?-?-?-?-?-?-?-?-?- EGA Weight BP Urine Prot -?-?-?-?-?-?-?-?-?-?-?-?- Glucose FHR FuHt Pres Dilation -?-?-?-?-?-?-?-?-?-?-?-?- Effaced St Visit Note 06/17/24 -?-?-?-?-?-?-?-?-?-?-?-?- 9w 0d 128 lb 4 oz 127/84 -?-?-?-?-?-?-?-?-?-?-?-?- 168 -?-?-?-?-?-?-?-?--?-?-?-?- LC- CRL 1.9cm co n with LMP. on progesterone for hx of multiple losses. no bleeding. declines nipt.tsh/free t3/4 added. 06/29/24 -?-?-?-?-?-?-?-?-?-?-?-?- 10w 5d 127 lb 121/78 Negative -?-?-?-?-?-?-?-?-?-?-?-?- Negative 168 -?-?-?-?-?-?-?-?-?-?-?-?- SM- no vb lof cr amping 07/20/24 -?-?-?-?-?-?-?-?-?-?-?-?- 13w 5d 128 lb 8 oz 112/74 Nega tive -?-?-?-?-?-?-?-?-?-?-?-?- Negative 163 -?-?-?-?-?-?-?-?-?-?-?-?- MH-No VB. Nausea resolved. Br US confirm FHT 08/01/24 -?-?-?-?-?-?-?-?-?-?-?-?- 15w 3d 131 lb 129/80 Negative -?-?-?-?-?-?-?-?-?-?-?-?- Negative 146 -?--?-?-?-?-?-?-?-?-?-?-?- KW- no vb/crampmerari ng. movement and FHT with US today. doing well. 08/17/24 -?-?-?-?-?-?-?-?-?-?-?-?- 17w 5d 133 lb 4 oz 110/62 Nega tive -?-?-?-?-?-?-?-?-?-?-?-?- Negative 160 -?-?-?-?-?-?-?-?-?-?-?-?- MH-NO VB. Dominick g movement. Nausea improved. Repeat thyroid labs today/Yair 09/16/24 -?-?-?-?-?-?-?-?-?-?-?-?- 22w 0d 139 lb 124/74 Negative -?-?-?-?-?-?-?-?-?-?-?-?- Negative 150 -?-?-?-?-?-?-?-?-?-?-?-?- KW- no vb/lof/ct x. good fm US reviewed. 09/30/24 -?-?-?-?-?-?-?-?-?-?-?-?- 24w 0d 140 lb 108/69 Negative -?-?-?-?-?-?-?-?-?-?-?-?- Negative 140 24 -?-?-?-?-?-?-?-?-?-?-?-?- LC- no vb/ctx/lo f. good fm. LC- no vb/ctx/lof. good fm. 28 week labs ordered, plans fresh test. 10/12/24 -?-?-?-?-?-?-?-?-?-?-?-?- 25w 5d 144 lb 6 oz 117/77 Nega tive -?-?-?-?-?-?-?-?-?-?-?-?- Negative 145 26 -?-?-?-?-?-?-?-?-?-?-?-?- SM- no vb lof go od fm nore gular ctx 10/26/24 -?-?-?-?-?-?-?-?-?-?-?-?- 27w 5d 148 lb 114/74 Negative -?-?-?-?-?-?-?-?-?-?-?-?- Negative 140 28 -?-?-?-?-?-?-?-?-?-?-?-?- SM- no vb lof go od fm nor egualr ctx 11/16/24 -?-?-?-?-?-?-?-?-?-?-?-?- 30w 5d 148 lb 2 oz 117/72 Nega tive -?-?-?-?-?-?-?-?-?-?-?-?- Negative 135 31 -?-?-?-?-?-?-?-?-?-?-?-?- SM- SM- no vb lof good fm no reu galr ctx dicsussed nutrition education need to balance out eating carbs postprandials all great but fastings borderline. 11/25/24 -?-?-?-?-?-?-?-?-?-?-?-?- 32w 0d 146 lb 6 oz 111/69 Trac e -?-?-?-?-?-?-?-?-?-?-?-?- Negative 145 32 -?-?-?-?-?-?-?-?-?-?-?-?- SM- no vb lof go od fm no regular ctx- had some jacey buitrago yesterday [facility] First Trimester First Trimester: Desire for , Alcohol, Tobacco Cessation, Illicit/Recreational Drug/Substance Use, Intimate Partner Violence, Barriers to care, Unstable Housing, Communication Barriers, Environmental/Work Hazards, Anticipated Course of Care, Toxoplasmosis Precations, Use of Any med ications, Sexual activity, Exercise, Dental Care, Sauna/Hot tub use, Seat Belt use, Childbirth classes/Hospital facilities, Travel, Indications for Ultrasound and Screening for Aneuploidy; Discussed Second Trimester Second Trimester: Signs and Symptoms of Labor, Selecting a care provider, Reproductive Life Planning & Contreception, Care Planning, Depression/Anxiety and Intimate Partner Violence; Discussed Tobacco Cessation Third Trimester Third Trimester: Pain Management Plans, Labor support person(s), Immediate Larc, Signs and Symptoms of Preeclampsia and Infant Feeding No Results POC Urinalysis 2 Dip (Clinic) Office Urine Glucose Negative Last Edit by Caroline Graham on 11/25/24 10:13 Office Urine Protein Trace Last Edit by Caroline Graham on 11/25/24 10:13 Coding Level of Care Code OB Routine Diagnoses Gestational diabetes mellitus (GDM) affecting , antepartum O24.419 MTHFR mutation E72.12 Supervision of high risk in second trimester O09.92 Trimester: second trimester 32 weeks gestation of Z3A.32 Weeks of gestation: 32 weeks History of recurrent miscarriages N96 Chiari malformation type I G93.5 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 anatomy reviewed. (5) History of recurrent miscarriages: Status: Acute Comment: on progesterone until 10-12 weeks (6) Chiari malformation type I: Status: Chronic Comment: s/p neurosurgery consult. no regional anesthesia. 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: Status: Chronic (8) ASCUS of cervix with negative high risk HPV: Status: Acute Comment: repeat pap 3 yrs, 09/2023 Neg pap/Neg HPV Orders: Orders POC Urinalysis 2 Dip (Clinic) Today 11/25/24 1028 yaya MARIE> Date _ Pam Koo MD Cosigner Signature: Date (if applicable) CC: ~ [facility]03-07-2025 Evaluation note* Diagnosis Onset Date Resolution Status Admit Date ASCUS of cervix with negativ e high risk HPV acute September 16, 2024 11:20am History of recurrent miscarriages acute September 16, 2024 11:20am MTHFR mutation acute September 16, 2024 11:20am acute September 16 11:20am Supervision of high-risk acute September 16, 2024 11:20am Chiari malformation type I chronic September 16, 2024 11:20am 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 September 11:20am ASCUS of cervix with negativ e high risk HPV acute September 30, 2024 10:51am History of recurrent miscarriages acute September 30, 2024 10:51am MTHFR mutation acute September 10:51am acute September 30 10:51am Supervision of high-risk acute September 30, 2024 10:51am Chiari malformation type I chronic September 30, 2024 10:51am 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 September 302024 10:51am ASCUS of cervix with negativ e high risk HPV acute October 12, 2024 10:53am History of recurrent miscarriages acute October 12, 2024 10:53am MTHFR mutation acute October 12, 2024 10:53am acute October 12 10:53am Supervision of high-risk acute October 12, 2024 10:53am Chiari malformation type I chronic October 12, 2024 10:53am 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 October 10:53am ASCUS of cervix with negativ e high risk HPV acute October 26, 2024 10:25am History of recurrent miscarriages acute October 26, 2024 10:25am MTHFR mutation acute October 10:25am acute October 26 10:25am Supervision of high-risk acute October 26, 2024 10:25am Chiari malformation type I chronic October 26, 2024 10:25am 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 October 262024 10:25am Gestational diabetes mellitu s (GDM) affecting , antepartum acute November 04, 2024 3:31pm 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 November 042024 3:31pm ASCUS of cervix with negativ e high risk HPV acute November 16, 2024 9: 08am Gestational diabetes mellitu s (GDM) affecting , antepartum acute November 16, 2024 9: 08am History of recurrent miscarriages acute November 16, 2024 9: 08am MTHFR mutation acute November 16, 2 025 9:08am acute November 16, 2024 9:08am Supervision of high-risk acute November 16, 2024 9: 08am Chiari malformation type I chronic November 16, 2024 9:08am 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 November 16, 2024 9:08am ASCUS of cervix with negativ e high risk HPV acute November 25, 2024 1 0:02am Gestational diabetes mellitu s (GDM) affecting , antepartum acute November 25, 2024 1 0:02am History of recurrent miscarriages acute November 25, 2024 1 0:02am MTHFR mutation acute November 25, 2024 10:02am acute November 25, 2024 10:02am Supervision of high-risk acute November 25, 2024 1 0:02am Chiari malformation type I chronic November 25, 2024 10:02am 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 November 10:02am ASCUS of cervix with negativ e high risk HPV acute December 09, 2024 9 :56am Gestational diabetes mellitu s (GDM) affecting , antepartum acute December 09, 2024 9 :56am History of recurrent miscarriages acute December 09, 2024 9 :56am MTHFR mutation acute December 09, 2024 9:56am acute December 09, 2024 9:56am Supervision of high-risk acute December 09, 2024 9 :56am Chiari malformation type I chronic December 09, 2024 9:56am 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 November 9:56am ASCUS of cervix with negativ e high risk HPV acute December 19, 2024 2 :07pm Gestational diabetes mellitu s (GDM) affecting , antepartum acute December 19, 2024 2 :07pm History of recurrent miscarriages acute December 19, 2024 2 :07pm MTHFR mutation acute December 19, 2024 2:07pm acute December 19, 2024 2:07pm Supervision of high-risk acute December 19, 2024 2 :07pm Chiari malformation type I chronic December 19, 2024 2:07pm 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 December 2:07pm [facility] Work Phone: 1(420) 444-150402-21-2025 Radiology Diagnostic study note [facility] Imaging Services [address] [place], [place] [address] OB Anatomy w/ Transvaginal MR#: [id number] Acct: [id number] Name: CEYC GALLEGOS Rep #: [id number] : 1995 F 29 From: Kendall Nunes MD PCP: Farzaneh Meraz DO Status: REG CLI Study:OB Anatomy w/ Transvaginal Date of Exam : 09/02/24 Exam# [id number] Ordering Dr: Caroline Stern [employer]-C PROCEDURE: OB ANATOMY W/ TRANSVAGINAL REASON FOR EXAM: well-being and anatomy. TECHNIQUE: Transvaginal imaging was performed for assessment of the cervical length. COMPARISON: None. FINDINGS: Number: 1 Position: Breech Placental Position: Anterior and not low-lying. Placental Abnormalities: None. DIMENSIONS: Biparietal Diameter: 4.63 cm: 20 weeks and 0 days: 50 percentile./ Head Circumference: 5.9 cm: 20 weeks and 1 day: 68 percentile/ Abdominal Circumference: 15.51 cm: 20 weeks and 5 days: 67.4 percentile/ Femur Length: 3.14 cm: 19 weeks and 5 days: 33 percentile/ ESTIMATED WEIGHT: 342 g plus/-51 g ESTIMATED WEIGHT PERCENTILE (24+ weeks): 60 percentile ESTIMATED GESTATIONAL AGE: Baseline: 20 weeks 0 days By Ultrasound: 19 weeks 6 days ESTIMATED DATE OF DELIVERY: Baseline: January 20, 2025 By Ultrasound: January 21, 2025 BIOPHYSICAL ASSESSMENT: Amniotic Fluid Volume: Subjectively normal. Amniotic Fluid Index: Within normal limits. Cardiac Motion: 146 beats per minute (average) Trunk and Limb Motion: Present. MATERNAL ANATOMY: Adnexa: Neither maternal ovary is successfully identified. Cervical Length (if measured): ANATOMY: Spine: Unremarkable. Cranium: Unremarkable. Cerebellum: Unremarkable. Cisterna Magna: Unremarkable. Cavum Septum Pellucidi: Present. Lateral Ventricles: Unremarkable. Choroid Plexus: There is a 8 mm x 4 mm choroid plexus cyst. Midline Falx: Present. Nuchal Fold: Upper Lip: Grossly intact. Heart: Normal four-chamber view. Ventricular Outflow Tracts: Unremarkable. Stomach: Unremarkable. Kidneys: Unremarkable. Bladder: Midline. Umbilical Cord: Three vessel cord. Normal and placental insertions. Extremities: Unremarkable. US/OB Anatomy w/ Transvaginal IMPRESSION: Single live intrauterine gestation with a mean gestational age of 19 weeks and 6days. 8 mm x 4 mm choroid plexus cyst. 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 August 17, 2024 2:56pm ASCUS of cervix with negativ e high risk HPV acute September 16, 2024 11:20am History of recurrent miscarriages acute September 16, 2024 11:20am MTHFR mutation acute September 16, 2024 11:20am acute September 16 11:20am Supervision of high-risk acute September 16, 2024 11:20am Chiari malformation type I chronic September 16, 2024 11:20am 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 September 11:20am ASCUS of cervix with negativ e high risk HPV acute September 30, 2024 10:51am History of recurrent miscarriages acute September 30, 2024 10:51am MTHFR mutation acute September 10:51am acute September 30 10:51am Supervision of high-risk acute September 30, 2024 10:51am Chiari malformation type I chronic September 30, 2024 10:51am 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 September 302024 10:51am ASCUS of cervix with negativ e high risk HPV acute October 12, 2024 10:53am History of recurrent miscarriages acute October 12, 2024 10:53am MTHFR mutation acute October 12, 2024 10:53am acute October 12 10:53am Supervision of high-risk acute October 12, 2024 10:53am Chiari malformation type I chronic October 12, 2024 10:53am 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 October 10:53am ASCUS of cervix with negativ e high risk HPV acute October 26, 2024 10:25am History of recurrent miscarriages acute October 26, 2024 10:25am MTHFR mutation acute October 10:25am acute October 26 10:25am Supervision of high-risk acute October 26, 2024 10:25am Chiari malformation type I chronic October 26, 2024 10:25am 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 October 262024 10:25am Gestational diabetes mellitu s (GDM) affecting , antepartum acute November 04, 2024 3:31pm 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 November 042024 3:31pm ASCUS of cervix with negativ e high risk HPV acute November 16, 2024 9: 08am Gestational diabetes mellitu s (GDM) affecting , antepartum acute November 16, 2024 9: 08am History of recurrent miscarriages acute November 16, 2024 9: 08am MTHFR mutation acute November 16, 2 025 9:08am acute November 16, 2024 9:08am Supervision of high-risk acute November 16, 2024 9: 08am Chiari malformation type I chronic November 16, 2024 9:08am 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 November 16, 2024 9:08am ASCUS of cervix with negativ e high risk HPV acute November 25, 2024 1 0:02am Gestational diabetes mellitu s (GDM) affecting , antepartum acute November 25, 2024 1 0:02am History of recurrent miscarriages acute November 25, 2024 1 0:02am MTHFR mutation acute November 25, 2024 10:02am acute November 25, 2024 10:02am Supervision of high-risk acute November 25, 2024 1 0:02am Chiari malformation type I chronic November 25, 2024 10:02am 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 November 10:02am ASCUS of cervix with negativ e high risk HPV acute December 09, 2024 9 :56am Gestational diabetes mellitu s (GDM) affecting , antepartum acute December 09, 2024 9 :56am History of recurrent miscarriages acute December 09, 2024 9 :56am MTHFR mutation acute December 09, 2024 9:56am acute December 09, 2024 9:56am Supervision of high-risk acute December 09, 2024 9 :56am Chiari malformation type I chronic December 09, 2024 9:56am 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 November 9:56am [facility] Work Phone: 1(866) 696-735801-20-2025 Evaluation note* Diagnosis Onset Date Resolution Status Admit Date ASCUS of cervix with negativ e high risk HPV acute August 01 1:28pm History of recurrent miscarriages acute August 01 1:28pm MTHFR mutation acute August 012024 1:28pm acute August 01, 2024 1:28pm Supervision of high-risk acute August 01 1:28pm Chiari malformation type I chronic August 01, 2024 1:28pm 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 August 01, 2024 1:28pm History of recurrent miscarriages acute August 17 2:56pm MTHFR mutation acute August 172024 2:56pm acute August 17, 2024 2:56pm Supervision of high-risk acute August 17 2:56pm Chiari malformation type I chronic August 17, 2024 2:56pm 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 August 17, 2024 2:56pm ASCUS of cervix with negativ e high risk HPV acute September 16, 2024 11:20am History of recurrent miscarriages acute September 16, 2024 11:20am MTHFR mutation acute September 16, 2024 11:20am acute September 16 11:20am Supervision of high-risk acute September 16, 2024 11:20am Chiari malformation type I chronic September 16, 2024 11:20am 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 September 11:20am ASCUS of cervix with negativ e high risk HPV acute September 30, 2024 10:51am History of recurrent miscarriages acute September 30, 2024 10:51am MTHFR mutation acute September 10:51am acute September 30 10:51am Supervision of high-risk acute September 30, 2024 10:51am Chiari malformation type I chronic September 30, 2024 10:51am 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 September 302024 10:51am ASCUS of cervix with negativ e high risk HPV acute October 12, 2024 10:53am History of recurrent miscarriages acute October 12, 2024 10:53am MTHFR mutation acute October 12, 2024 10:53am acute October 12 10:53am Supervision of high-risk acute October 12, 2024 10:53am Chiari malformation type I chronic October 12, 2024 10:53am 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 October 10:53am ASCUS of cervix with negativ e high risk HPV acute October 26, 2024 10:25am History of recurrent miscarriages acute October 26, 2024 10:25am MTHFR mutation acute October 10:25am acute October 26 10:25am Supervision of high-risk acute October 26, 2024 10:25am Chiari malformation type I chronic October 26, 2024 10:25am 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 October 262024 10:25am Gestational diabetes mellitu s (GDM) affecting , antepartum acute November 04, 2024 3:31pm 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 November 042024 3:31pm ASCUS of cervix with negativ e high risk HPV acute November 16, 2024 9: 08am Gestational diabetes mellitu s (GDM) affecting , antepartum acute November 16, 2024 9: 08am History of recurrent miscarriages acute November 16, 2024 9: 08am MTHFR mutation acute November 16, 2 025 9:08am acute November 16, 2024 9:08am Supervision of high-risk acute November 16, 2024 9: 08am Chiari malformation type I chronic November 16, 2024 9:08am 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 November 16, 2024 9:08am ASCUS of cervix with negativ e high risk HPV acute November 25, 2024 1 0:02am Gestational diabetes mellitu s (GDM) affecting , antepartum acute November 25, 2024 1 0:02am History of recurrent miscarriages acute November 25, 2024 1 0:02am MTHFR mutation acute November 25, 2024 10:02am acute November 25, 2024 10:02am Supervision of high-risk acute November 25, 2024 1 0:02am Chiari malformation type I chronic November 25, 2024 10:02am 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 November 10:02am [facility] Work Phone: 1(703) 313-445801-08-2025 Evaluation note* Diagnosis Onset Date Resolution Status Admit Date History of recurrent miscarriages acute July 20 4:03pm MTHFR mutation acute July 4:03pm acute July 20, 025 4:03pm Supervision of high-risk acute July 20 4:03pm Chiari malformation type I chronic July 20, 2024 4:03pm 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 July 20, 2024 4:03pm ASCUS of cervix with negativ e high risk HPV acute August 01 1:28pm History of recurrent miscarriages acute August 01 1:28pm MTHFR mutation acute August 012024 1:28pm acute August 01, 2024 1:28pm Supervision of high-risk acute August 01 1:28pm Chiari malformation type I chronic August 01, 2024 1:28pm 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 August 01, 2024 1:28pm History of recurrent miscarriages acute August 17 2:56pm MTHFR mutation acute August 172024 2:56pm acute August 17, 2024 2:56pm Supervision of high-risk acute August 17 2:56pm Chiari malformation type I chronic August 17, 2024 2:56pm 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 August 17, 2024 2:56pm ASCUS of cervix with negativ e high risk HPV acute September 16, 2024 11:20am History of recurrent miscarriages acute September 16, 2024 11:20am MTHFR mutation acute September 16, 2024 11:20am acute September 16 11:20am Supervision of high-risk acute September 16, 2024 11:20am Chiari malformation type I chronic September 16, 2024 11:20am 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 September 11:20am ASCUS of cervix with negativ e high risk HPV acute September 30, 2024 10:51am History of recurrent miscarriages acute September 30, 2024 10:51am MTHFR mutation acute September 10:51am acute September 30 10:51am Supervision of high-risk acute September 30, 2024 10:51am Chiari malformation type I chronic September 30, 2024 10:51am 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 September 302024 10:51am ASCUS of cervix with negativ e high risk HPV acute October 12, 2024 10:53am History of recurrent miscarriages acute October 12, 2024 10:53am MTHFR mutation acute October 12, 2024 10:53am acute October 12 10:53am Supervision of high-risk acute October 12, 2024 10:53am Chiari malformation type I chronic October 12, 2024 10:53am 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 October 10:53am ASCUS of cervix with negativ e high risk HPV acute October 26, 2024 10:25am History of recurrent miscarriages acute October 26, 2024 10:25am MTHFR mutation acute October 10:25am acute October 26 10:25am Supervision of high-risk acute October 26, 2024 10:25am Chiari malformation type I chronic October 26, 2024 10:25am 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 October 262024 10:25am [facility] Work Phone: 1([phone]) 696-551212-06-2024 Evaluation note* Diagnosis Onset Date Resolution Status Admit Date ASCUS of cervix with negativ e high risk HPV acute June 17 8:46am History of recurrent miscarriages acute June 17 8:46am MTHFR mutation acute June 172023 8:46am acute June 17, 2024 8:46am Supervision of high-risk acute June 17 8:46am Chiari malformation type I chronic June 17, 2024 8:46am 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 June 17, 2024 8:46am Thyroiditis resolved June 17, 2024 8:46am ASCUS of cervix with negativ e high risk HPV acute June 29, 024 10:03am History of recurrent miscarriages acute June 29, 024 10:03am MTHFR mutation acute June 122023 10:03am acute June 29, 2024 10:03am Supervision of high-risk acute June 29, 2 024 10:03am Chiari malformation type I chronic June 29, 2024 10:03am 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 June 29, 2024 10:03am History of recurrent miscarriages acute July 20 4:03pm MTHFR mutation acute July 4:03pm acute July 20, 025 4:03pm Supervision of high-risk acute July 20 4:03pm Chiari malformation type I chronic July 20, 2024 4:03pm 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 July 20, 2024 4:03pm ASCUS of cervix with negativ e high risk HPV acute August 01 1:28pm History of recurrent miscarriages acute August 01 1:28pm MTHFR mutation acute August 012024 1:28pm acute August 01, 2024 1:28pm Supervision of high-risk acute August 01 1:28pm Chiari malformation type I chronic August 01, 2024 1:28pm 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 Endocervical and/or squamous metaplasticcells (endocervical component)are present.[facility] INTER[facility]ACED A#[id number] Doctors HospitalComment on above:Satisfactory for evaluation. Endocervical and/or squamous metaplasticcells (endocervical component)are present.Evaluation noteNo assessment information availableWOhioHealth Doctors Hospital Work Phone: Evaluation note* Diagnosis Onset Date Resolution Status Nausea/vomiting in acute acute Supervision of high-risk acute Thyroid disease affecting acute Chiari malformation type I c hronic [facility] Work Phone: Evaluation note* Diagnosis Onset Date Resolution Status Nausea/vomiting in acute acute Supervision of high-risk acute Thyroid disease affecting acute Chiari malformation type I c hronic ASCUS of cervix with negative high risk HPV acute GBS (group B Streptococcus c arrier), +RV culture, currently acute Nausea/vomiting in acute acute Supervision of high-risk acute Thyroid disease affecting acute Chiari malformation type I c hronic ASCUS of cervix with negative high risk HPV acute GBS (group B Streptococcus c arrier), +RV culture, currently acute Nausea/vomiting in acute acute Supervision of high-risk acute Thyroid disease affecting acute Vaginal bleeding during , antepartum acute Chiari malformation type I c [facility] Work Phone: Evaluation note* Diagnosis Onset Date Resolution Status ASCUS of cervix with negative high risk HPV acute GBS (group B Streptococcus c arrier), +RV culture, currently acute acute Supervision of high-risk acute Thyroid disease affecting acute Chiari malformation type I c hronic Nausea/vomiting in resolved ASCUS of cervix with negative high risk HPV acute GBS (group B Streptococcus c arrier), +RV culture, currently acute acute Supervision of high-risk acute Thyroid disease affecting acute Chiari malformation type I c hronic Nausea/vomiting in resolved Vaginal bleeding during , antepartum resolved GBS (group B Streptococcus c arrier), +RV culture, currently acute acute Supervision of high-risk acute Thyroid disease affecting acute Chiari malformation type I c hronic Nausea/vomiting in resolved Vaginal bleeding during , antepartum resolved ASCUS of cervix with negative high risk HPV acute GBS (group B Streptococcus c arrier), +RV culture, currently acute Marginal insertion of umbilical cord acute acute Supervision of high-risk acute Thyroid disease affecting acute Chiari malformation type I c hronic ASCUS of cervix with negative high risk HPV acute GBS (group B Streptococcus c arrier), +RV culture, currently acute Marginal insertion of umbilical cord acute acute Supervision of high-risk acute Thyroid disease affecting acute Chiari malformation type I c hronic GBS (group B Streptococcus c arrier), +RV culture, currently acute Marginal insertion of umbilical cord acute acute Supervision of high-risk acute Thyroid disease affecting acute Chiari malformation type I c [facility] Work Phone: Evaluation note* Diagnosis Onset Date Resolution Status ASCUS of cervix with negative high risk HPV acute GBS (group B Streptococcus c arrier), +RV culture, currently acute Marginal insertion of umbilical cord acute acute Supervision of high-risk acute Thyroid disease affecting acute Chiari malformation type I c hronic ASCUS of cervix with negative high risk HPV acute GBS (group B Streptococcus c arrier), +RV culture, currently acute Marginal insertion of umbilical cord acute acute Supervision of high-risk acute Thyroid disease affecting acute Chiari malformation type I c hronic GBS (group B Streptococcus c arrier), +RV culture, currently acute Marginal insertion of umbilical cord acute acute Supervision of high-risk acute Thyroid disease affecting acute Chiari malformation type I c hronic ASCUS of cervix with negative high risk HPV acute GBS (group B Streptococcus c arrier), +RV culture, currently acute Marginal insertion of umbilical cord acute acute Supervision of high-risk acute Thyroid disease affecting acute Chiari malformation type I c hronic ASCUS of cervix with negative high risk HPV acute GBS (group B Streptococcus c arrier), +RV culture, currently acute Marginal insertion of umbilical cord acute acute Supervision of high-risk acute Thyroid disease affecting acute Chiari malformation type I c [facility] Work Phone: Evaluation note* Diagnosis Onset Date Resolution Status ASCUS of cervix with negative high risk HPV acute GBS (group B Streptococcus c arrier), +RV culture, currently acute Marginal insertion of umbilical cord acute acute Supervision of high-risk acute Thyroid disease affecting acute Chiari malformation type I c hronic GBS (group B Streptococcus c arrier), +RV culture, currently acute Marginal insertion of umbilical cord acute acute Supervision of high-risk acute Thyroid disease affecting acute Chiari malformation type I c hronic ASCUS of cervix with negative high risk HPV acute GBS (group B Streptococcus c arrier), +RV culture, currently acute Marginal insertion of umbilical cord acute acute Supervision of high-risk acute Thyroid disease affecting acute Chiari malformation type I c hronic ASCUS of cervix with negative high risk HPV acute GBS (group B Streptococcus c arrier), +RV culture, currently acute Marginal insertion of umbilical cord acute acute Supervision of high-risk acute Thyroid disease affecting acute Chiari malformation type I c hronic ASCUS of cervix with negative high risk HPV acute GBS (group B Streptococcus c arrier), +RV culture, currently acute Marginal insertion of umbilical cord acute acute Supervision of high-risk acute Thyroid disease affecting acute Chiari malformation type I c hronic ASCUS of cervix with negative high risk HPV acute GBS (group B Streptococcus c arrier), +RV culture, currently acute Marginal insertion of umbilical cord acute acute Supervision of high-risk acute Thyroid disease affecting acute Chiari malformation type I c hronic ASCUS of cervix with negative high risk HPV acute GBS (group B Streptococcus c arrier), +RV culture, currently acute Marginal insertion of umbilical cord acute acute Supervision of high-risk acute Thyroid disease affecting acute Chiari malformation type I c hronic [facility] Work Phone: Evaluation note* Diagnosis Onset Date Resolution Status ASCUS of cervix with negative high risk HPV acute GBS (group B Streptococcus c arrier), +RV culture, currently acute Marginal insertion of umbilical cord acute acute Supervision of high-risk acute Thyroid disease affecting acute Chiari malformation type I c hronic GBS (group B Streptococcus c arrier), +RV culture, currently acute Marginal insertion of umbilical cord acute acute Supervision of high-risk acute Thyroid disease affecting acute Chiari malformation type I c hronic ASCUS of cervix with negative high risk HPV acute GBS (group B Streptococcus c arrier), +RV culture, currently acute Marginal insertion of umbilical cord acute acute Supervision of high-risk acute Thyroid disease affecting acute Chiari malformation type I c hronic ASCUS of cervix with negative high risk HPV acute GBS (group B Streptococcus c arrier), +RV culture, currently acute Marginal insertion of umbilical cord acute acute Supervision of high-risk acute Thyroid disease affecting acute Chiari malformation type I c hronic ASCUS of cervix with negative high risk HPV acute GBS (group B Streptococcus c arrier), +RV culture, currently acute Marginal insertion of umbilical cord acute acute Supervision of high-risk acute Thyroid disease affecting acute Chiari malformation type I c hronic ASCUS of cervix with negative high risk HPV acute GBS (group B Streptococcus c arrier), +RV culture, currently acute Marginal insertion of umbilical cord acute acute Supervision of high-risk acute Thyroid disease affecting acute Chiari malformation type I c hronic ASCUS of cervix with negative high risk HPV acute GBS (group B Streptococcus c arrier), +RV culture, currently acute Marginal insertion of umbilical cord acute acute Supervision of high-risk acute Thyroid disease affecting acute Chiari malformation type I c hronic ASCUS of cervix with negative high risk HPV acute GBS (group B Streptococcus c arrier), +RV culture, currently acute Marginal insertion of umbilical cord acute acute Supervision of high-risk acute Thyroid disease affecting acute Chiari malformation type I c hronic ASCUS of cervix with negative high risk HPV acute GBS (group B Streptococcus c arrier), +RV culture, currently acute Marginal insertion of umbilical cord acute acute Spontaneous rupture of amniotic membranes acute Supervision of high-risk acute (spontaneous vaginal delivery) acute Thyroid disease affecting acute Chiari malformation type I c hronic [facility] Work Phone: Evaluation note* Diagnosis Onset Date Resolution Status ASCUS of cervix with negative high risk HPV acute Thyroid disease affecting acute Chiari malformation type I c hronic ASCUS of cervix with negative high risk HPV acute normal course acu te Thyroid disease affecting acute Chiari malformation type I c hronic Thyroiditis acute [facility] Work Phone: Evaluation note* Diagnosis Onset Date Resolution Status Pre-conception counseling ac sayre Thyroiditis acute Encounter for routine gynecological examination noneactive Cervical cancer screening ac [facility] Work Phone: Progress note Author Pam Koo [facility] Note Date/Time November 25, 2024 10:28 am [facility] [address] [place] [address], [address] [place] [address] OFFICE VISIT Date of Service: 11/25/24 MR#: [id number] Acct: [id number] Name: CECY GALLEGOS Rep #: [id number] : 1995 Provider: Dr. Kalyan Koo MD Age/Sex: 29/F Location: 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: No Is patient in pain?: No Allergies banana Allergy (Mild, Verified 11/25/24 10:05) RASH Latex, Natural Rubber Allergy (Mild, Verified 11/25/24 10:05) Rash Medications ?Medication ?Instructions ?Recorded ?Confirmed ?Type vitamin#30 30 mg iron-10 1 cap PO DAILY pregn irene 04/07/19 11/25/24 History mg iron-folic acid 1 mg-omg3 capsule aspirin 81 mg tablet,delayed 81 mg PO DAILY 12/22/23 0 11/25/24 History release (Adult Aspirin Regimen) levothyroxine 50 mcg tablet 50 mcg PO DAILY #90 tabs 0 09/08/24 11/25/24 Rx blood sugar diagnostic (Blood #120 ea 10/28/24 5 Rx Glucose Test strips) blood-glucose meter #1 ea 10/28/24 11/25/24 Rx lancets 30 gauge (Droplet Lancets) #200 ea 10/28/24 Rx metformin 500 mg tablet 500 mg PO QDAY #30 tabs 10/1211/25/24 Rx Last Menstrual Period: 04/15/24 Zika: Zika virus screening: Negative : No PFSH PFSH Medical History History of miscarriage History of miscarriage, currently Early stage of Supervision of high-risk Non-smoker 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 SAB (spontaneous ) Thyroiditis (spontaneous vaginal delivery) Spontaneous rupture of amniotic membranes Thyroid disorder GBS (group B Streptococcus carrier), +RV culture, currently Thyroid disease affecting Supervision of high-risk Amenorrhea ASCUS of cervix with negative high risk HPV 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 Surgical History S/P dilation and curettage (~01/11/24) H/O wisdom tooth extraction Family History Father , BLOOD CLOT BLOOD CLOT Social History adopted: No household members: family housing: house number of children: 2 current occupational status: employed 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[employer] pets and animals: Yes (Outside dog and chickens) pets and animals: dog(s) and farm animals history of recent travel: No sexually active: Yes Smoking Status: Never smoker alcohol intake: never substance use type: does not use diet: gluten free well-balanced diet: daily or most days caffeine: No eating out: 1-3 times/week during the past year weight has: remained stable what type of physical activity do you participate in: walking and yoga frequency: 1-2 times per week duration: 15-30 minutes/day femi/zoroastrianism: Congregational seatbelt use: always do you feel safe at home: Yes 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 Date Name GA/Weeks Outcome Route Bth Weight Infant Gen Labor Lgth Anesthesia Del Locatn Provider FOB Unknown 03/2019 SAB spontaneous Unknown 07/2021 chemical Unknown 08/03/2023 miscarriage 6 spontaneous 04/29/20 [place] 39 live - full term 6# Male none [employer] Hanane [place] 07/10/22 Annabelle Rouse 39 live - full term 7#11oz Female none [employer] Hay Mascout[place] 01/11/24 spontaneous SM Delivery Date: 04/29/20 Last Updated by: Su MULLINS Delivery Date: 07/10/22 Last Updated by: Su MULLINS IOL Delivery Date: 01/11/24 Last Updated by: Keira Chen RN D&C HPI 32 WK OB Details: CECY GALLEGOS is a 29 year old who presents for routine OB visit. OB Visit GERMAN Calculator Estimated Delivery Date Method Current WG Current Estimate 01/20/25 LMP (Certain) 32w 0d Expected Delivery Route/Plan Labor Preferences- CB/BF classes: [] labor support person: [] labor intervention preferences: [] pain management options preferred: [] cut cord/dad catch: [] : [] PP control planned: [] discussed possible routes of delivery and associated risks: [] special requests: [] Specific Issue/Plans Covid status: [] Flu vaccine: [] Tdap vaccine: [] Rhogam: [] LARC form signed: [] Problem list reviewed and updated with the most current plan of care details and appropriate orders placed. Relevant counseling for the gestational age provided. Continue routine care and follow up unless otherwise noted in visit notes/problem list details Initial Weight: Not Recorded Date -?-?-?-?-?-?-?-?-?-?-?-?- EGA Weight BP Urine Prot -?-?-?-?-?-?-?-?-?-?-?-?- Glucose FHR FuHt Pres Dilation -?-?-?-?-?-?-?-?-?-?-?-?- Effaced St Visit Note 06/17/24 -?-?-?-?-?-?-?-?-?-?-?-?- 9w 0d 128 lb 4 oz 127/84 -?-?-?-?-?-?-?-?-?-?-?-?- 168 -?-?-?-?-?-?-?-?--?-?-?-?- LC- CRL 1.9cm co n with LMP. on progesterone for hx of multiple losses. no bleeding. declines nipt.tsh/free t3/4 added. 06/29/24 -?-?-?-?-?-?-?-?-?-?-?-?- 10w 5d 127 lb 121/78 Negative -?-?-?-?-?-?-?-?-?-?-?-?- Negative 168 -?-?-?-?-?-?-?-?-?-?-?-?- SM- no vb lof cr amping 07/20/24 -?-?-?-?-?-?-?-?-?-?-?-?- 13w 5d 128 lb 8 oz 112/74 Nega tive -?-?-?-?-?-?-?-?-?-?-?-?- Negative 163 -?-?-?-?-?-?-?-?-?-?-?-?- MH-No VB. Nausea resolved. Br US confirm FHT 08/01/24 -?-?-?-?-?-?-?-?-?-?-?-?- 15w 3d 131 lb 129/80 Negative -?-?-?-?-?-?-?-?-?-?-?-?- Negative 146 -?--?-?-?-?-?-?-?-?-?-?-?- KW- no vb/crampi ng. movement and FHT with US today. doing well. 08/17/24 -?-?-?-?-?-?-?-?-?-?-?-?- 17w 5d 133 lb 4 oz 110/62 Nega tive -?-?-?-?-?-?-?-?-?-?-?-?- Negative 160 -?-?-?-?-?-?-?-?-?-?-?-?- MH-NO VB. Dominick prado movement. Nausea improved. Repeat thyroid labs today/Yair 09/16/24 -?-?-?-?-?-?-?-?-?-?-?-?- 22w 0d 139 lb 124/74 Negative -?-?-?-?-?-?-?-?-?-?-?-?- Negative 150 -?-?-?-?-?-?-?-?-?-?-?-?- KW- no vb/lof/ct x. good fm US reviewed. 09/30/24 -?-?-?-?-?-?-?-?-?-?-?-?- 24w 0d 140 lb 108/69 Negative -?-?-?-?-?-?-?-?-?-?-?-?- Negative 140 24 -?-?-?-?-?-?-?-?-?-?-?-?- LC- no vb/ctx/lo f. good fm. LC- no vb/ctx/lof. good fm. 28 week labs ordered, plans fresh test. 10/12/24 -?-?-?-?-?-?-?-?-?-?-?-?- 25w 5d 144 lb 6 oz 117/77 Nega tive -?-?-?-?-?-?-?-?-?-?-?-?- Negative 145 26 -?-?-?-?-?-?-?-?-?-?-?-?- SM- no vb lof go od fm nore gular ctx 10/26/24 -?-?-?-?-?-?-?-?-?-?-?-?- 27w 5d 148 lb 114/74 Negative -?-?-?-?-?-?-?-?-?-?-?-?- Negative 140 28 -?-?-?-?-?-?-?-?-?-?-?-?- SM- no vb lof go od fm nor egualr ctx 11/16/24 -?-?-?-?-?-?-?-?-?-?-?-?- 30w 5d 148 lb 2 oz 117/72 Nega tive -?-?-?-?-?-?-?-?-?-?-?-?- Negative 135 31 -?-?-?-?-?-?-?-?-?-?-?-?- SM- SM- no vb lof good fm no reu galr ctx dicsussed nutrition education need to balance out eating carbs postprandials all great but fastings borderline. 11/25/24 -?-?-?-?-?-?-?-?-?-?-?-?- 32w 0d 146 lb 6 oz 111/69 Trac e -?-?-?-?-?-?-?-?-?-?-?-?- Negative 145 32 -?-?-?-?-?-?-?-?-?-?-?-?- SM- no vb lof go od fm no regular ctx- had some jacey buitrago yesterday ACOG First Trimester First Trimester: Desire for , Alcohol, Tobacco Cessation, Illicit/Recreational Drug/Substance Use, Intimate Partner Violence, Barriers to care, Unstable Housing, Communication Barriers, Environmental/Work Hazards, Anticipated Course of Care, Toxoplasmosis Precations, Use of Any medications, Sexual activity, Exercise, Dental Care, Sauna/Hot tub use, Seat Belt use, Childbirth classes/Hospital facilities, Travel, Indications for Ultrasound and Screening for Aneuploidy; Discussed Second Trimester Second Trimester: Signs and Symptoms of Labor, Selecting a care provider, Reproductive Life Planning & Contreception, Care Planning, Depression/Anxiety and Intimate Partner Violence; Discussed Tobacco Cessation Third Trimester Third Trimester: Pain Management Plans, Labor support person(s), Immediate Larc, Signs and Symptoms of Preeclampsia and Infant Feeding No Results POC Urinalysis 2 Dip (Clinic) Office Urine Glucose Negative Last Edit by Caroline Graham on 11/25/24 10:13 Office Urine Protein Trace Last Edit by Caroline Graham on 11/25/24 10:13 Coding Level of Care Code OB Routine Diagnoses Gestational diabetes mellitus (GDM) affecting , antepartum O24.419 MTHFR mutation E72.12 Supervision of high risk in second trimester O09.92 Trimester: second trimester 32 weeks gestation of Z3A.32 Weeks of gestation: 32 weeks History of recurrent miscarriages N96 Chiari malformation type I G93.5 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 anatomy reviewed. (5) History of recurrent miscarriages: Status: Acute Comment: on progesterone until 10-12 weeks (6) Chiari malformation type I: Status: Chronic Comment: s/p neurosurgery consult. no regional anesthesia. 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: Status: Chronic (8) ASCUS of cervix with negative high risk HPV: Status: Acute Comment: repeat pap 3 yrs, 09/2023 Neg pap/Neg HPV Orders: Orders POC Urinalysis 2 Dip (Clinic) Today 11/25/24 1028 <Electronically signed by Pam javier MD> Date _ [facility] Signature: Date (if applicable) CC: ~ [facility] Work Phone: Reason for referral (narrative)No reason for referral information availableWOhio[facility] Work Phone: Assessments Diagnosis Irregular bleeding - Primary Irregular menstrual cycle Summary Purpose Family History No Family History Records Found Relationship Condition Age at Onset Recorded Date/T sanju father Unknown Advance Directives No Advanced Directives Records Found Advance Directive Response Recorded Date/ Time Living Will No April 29 1:05pm Power of Patient Care Representative No April 29, 2020 1:05pm Advance Directive Response Recorded Date/ Time Living Will No January 08, 2022 8:09am Power of Patient Care Representative No January 08 8:09am Advance Directive Response Recorded Date/ Time Living Will No January 08, 2022 7:09am Power of Patient Care Representative No January 08 7:09am Advance Directive Response Recorded Date/ Time Living Will No July 09 8:30pm Power of Patient Care Representative No July 09, 2022 8:30pm Advance Directive Response Recorded Date/ Time Living Will No July 09, 2 022 9:30pm Power of Patient Care Representative No July 09, 2022 9:30pm Advance Directive Response Recorded Date/ Time Living Will No January 08, 2024 12:15pm Power of Patient Care Representative No January 07 12:15pm Advance Directive Response Recorded Date/ Time Living Will No July 09, 2 022 9:30pm Do you have a Healthcare Power of Patient Care Representative? No July 09, 2022 9:30pm Chief Complaint and Reason for Visit Chief Complaint DRY NEEDLE, HEADACHE /RX HERE HYPERSOMNIA; 2/25 LM E-ORDER Chief Complaint HYPERSOMNIA; 2/25 LM E-ORDER DRY NEEDLE, HEADACHE/RX HERE E-ORDER Chief Complaint HYPERSOMNIA; 2/25 LM E-ORDER DRY NEEDLE, HEADACHE/RX HERE E-ORDER NOB LMP 10/06/21 E ORDER Reason for Visit Nausea/vomiting in p regnancy Supervision of high-risk Thyroid disease affecting Chiari malformation type I Chief Complaint E-ORDER DRY NEEDLE, HEADACHE/RX HERE E-ORDER NOB LMP 10/06/21 E ORDER 12 WK OB OB, bleeding Reason for Visit Nausea/vomiting in p regnancy Supervision of high-risk Thyroid disease affecting Chiari malformation type I ASCUS of cervix with negative high risk HPV GBS (group B Streptococcus carrier), +RV culture, currently Nausea/vomiting in Supervision of high-risk Thyroid disease affecting Chiari malformation type I ASCUS of cervix with negative high risk HPV GBS (group B Streptococcus carrier), +RV culture, currently Nausea/vomiting in Supervision of high-risk Thyroid disease affecting Vaginal bleeding during , antepartum Chiari malformation type I Chief Complaint 12 WK OB OB, bleeding 16 WK OB 20 WK OB 24 WK OB 28 WK OB Reason for Visit ASCUS of cervix with negative high risk HPV GBS (group B Streptococcus carrier), +RV culture, currently Supervision of high-risk Thyroid disease affecting Chiari malformation type I Nausea/vomiting in ASCUS of cervix with negative high risk HPV GBS (group B Streptococcus carrier), +RV culture, currently Supervision of high-risk Thyroid disease affecting Chiari malformation type I Nausea/vomiting in Vaginal bleeding during , antepartum GBS (group B Streptococcus carrier), +RV culture, currently Supervision of high-risk Thyroid disease affecting Chiari malformation type I Nausea/vomiting in Vaginal bleeding during , antepartum ASCUS of cervix with negative high risk HPV GBS (group B Streptococcus carrier), +RV culture, currently Marginal insertion of umbilical cord Supervision of high-risk Thyroid disease affecting Chiari malformation type I ASCUS of cervix with negative high risk HPV GBS (group B Streptococcus carrier), +RV culture, currently Marginal insertion of umbilical cord Supervision of high-risk Thyroid disease affecting Chiari malformation type I GBS (group B Streptococcus carrier), +RV culture, currently Marginal insertion of umbilical cord Supervision of high-risk Thyroid disease affecting Chiari malformation type I Chief Complaint 20 WK OB 24 WK OB 28 WK OB 30 WK OB GROWTH 32 WK OB Reason for Visit ASCUS of cervix with negative high risk HPV GBS (group B Streptococcus carrier), +RV culture, currently Marginal insertion of umbilical cord Supervision of high-risk Thyroid disease affecting Chiari malformation type I ASCUS of cervix with negative high risk HPV GBS (group B Streptococcus carrier), +RV culture, currently Marginal insertion of umbilical cord Supervision of high-risk Thyroid disease affecting Chiari malformation type I GBS (group B Streptococcus carrier), +RV culture, currently Marginal insertion of umbilical cord Supervision of high-risk Thyroid disease affecting Chiari malformation type I ASCUS of cervix with negative high risk HPV GBS (group B Streptococcus carrier), +RV culture, currently Marginal insertion of umbilical cord Supervision of high-risk Thyroid disease affecting Chiari malformation type I ASCUS of cervix with negative high risk HPV GBS (group B Streptococcus carrier), +RV culture, currently Marginal insertion of umbilical cord Supervision of high-risk Thyroid disease affecting Chiari malformation type I Chief Complaint 24 WK OB 28 WK OB 30 WK OB GROWTH 32 WK OB 34 WK OB 36 WK OB GROWTH 37 WK OB Reason for Visit ASCUS of cervix with negative high risk HPV GBS (group B Streptococcus carrier), +RV culture, currently Marginal insertion of umbilical cord Supervision of high-risk Thyroid disease affecting Chiari malformation type I GBS (group B Streptococcus carrier), +RV culture, currently Marginal insertion of umbilical cord Supervision of high-risk Thyroid disease affecting Chiari malformation type I ASCUS of cervix with negative high risk HPV GBS (group B Streptococcus carrier), +RV culture, currently Marginal insertion of umbilical cord Supervision of high-risk Thyroid disease affecting Chiari malformation type I ASCUS of cervix with negative high risk HPV GBS (group B Streptococcus carrier), +RV culture, currently Marginal insertion of umbilical cord Supervision of high-risk Thyroid disease affecting Chiari malformation type I ASCUS of cervix with negative high risk HPV GBS (group B Streptococcus carrier), +RV culture, currently Marginal insertion of umbilical cord Supervision of high-risk Thyroid disease affecting Chiari malformation type I ASCUS of cervix with negative high risk HPV GBS (group B Streptococcus carrier), +RV culture, currently Marginal insertion of umbilical cord Supervision of high-risk Thyroid disease affecting Chiari malformation type I ASCUS of cervix with negative high risk HPV GBS (group B Streptococcus carrier), +RV culture, currently Marginal insertion of umbilical cord Supervision of high-risk Thyroid disease affecting Chiari malformation type I Chief Complaint 24 WK OB 28 WK OB 30 WK OB GROWTH 32 WK OB 34 WK OB 36 WK OB GROWTH 37 WK OB 38 WK OB 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 AND 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 DELIVERY Reason for Visit ASCUS of cervix with negative high risk HPV GBS (group B Streptococcus carrier), +RV culture, currently Marginal insertion of umbilical cord Supervision of high-risk Thyroid disease affecting Chiari malformation type I GBS (group B Streptococcus carrier), +RV culture, currently Marginal insertion of umbilical cord Supervision of high-risk Thyroid disease affecting Chiari malformation type I ASCUS of cervix with negative high risk HPV GBS (group B Streptococcus carrier), +RV culture, currently Marginal insertion of umbilical cord Supervision of high-risk Thyroid disease affecting Chiari malformation type I ASCUS of cervix with negative high risk HPV GBS (group B Streptococcus carrier), +RV culture, currently Marginal insertion of umbilical cord Supervision of high-risk Thyroid disease affecting Chiari malformation type I ASCUS of cervix with negative high risk HPV GBS (group B Streptococcus carrier), +RV culture, currently Marginal insertion of umbilical cord Supervision of high-risk Thyroid disease affecting Chiari malformation type I ASCUS of cervix with negative high risk HPV GBS (group B Streptococcus carrier), +RV culture, currently Marginal insertion of umbilical cord Supervision of high-risk Thyroid disease affecting Chiari malformation type I ASCUS of cervix with negative high risk HPV GBS (group B Streptococcus carrier), +RV culture, currently Marginal insertion of umbilical cord Supervision of high-risk Thyroid disease affecting Chiari malformation type I ASCUS of cervix with negative high risk HPV GBS (group B Streptococcus carrier), +RV culture, currently Marginal insertion of umbilical cord Supervision of high-risk Thyroid disease affecting Chiari malformation type I ASCUS of cervix with negative high risk HPV GBS (group B Streptococcus carrier), +RV culture, currently Marginal insertion of umbilical cord Spontaneous rupture of amniotic membranes Supervision of high-risk (spontaneous vaginal delivery) Thyroid disease affecting Chiari malformation type I Chief Complaint LABOR AND 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 DELIVERY 6 wk PP INT LABS AND ORDER Hypothyroidism Reason for Visit ASCUS of cervix with negative high risk HPV Thyroid disease affecting Chiari malformation type I ASCUS of cervix with negative high risk HPV normal course Thyroid disease affecting Chiari malformation type I Thyroiditis Chief Complaint EORDER E-ORDER Chief Complaint EORDER E-ORDER NEED ORDER Chief Complaint EORDER E-ORDER NEED ORDER Annual ([facility] E ORDERS Annual ([facility]) Reason for Visit Pre-conception couns eling Thyroiditis Encounter for routine gynecological examination Cervical cancer screening Chief Complaint EORDER E-ORDER NEED ORDER Annual ([facility]) E ORDERS Annual ([facility]) ANNUAL PAP Reason for Visit Pre-conception couns eling Thyroiditis Encounter for routine gynecological examination Cervical cancer screening Chief Complaint Admit Date E ORDERS May 23, 2024 8:57am New OB, LMP 04/15, GERMAN 01/20/25 June 172023 8:46am heartbeat check per lc June 29 10:03am 14 WK OB July 20, 2024 4: 03pm HEARTBEAT CK August 01, 2024 1 :28pm 18 WK OB August 17, 2024 2 :56pm SUPERVISION OF HIGH RISK Febru 2024 12:26pm Reason for Visit Admit Date ASCUS of cervix with negative high risk HPV June 17, 2024 8:46am History of recurrent miscarriages Decemb er 2023 8:46am MTHFR mutation June 17, 2024 8 :46am June 17, 2024 8 :46am Supervision of high-risk Decem elliot 2023 8:46am Chiari malformation type I June 17, 2024 8:46am 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 June 17, 2024 8:46am Thyroiditis June 17, 2024 8 :46am ASCUS of cervix with negative high risk HPV June 29, 2024 10:03am History of recurrent miscarriages Decemb er 2023 10:03am MTHFR mutation June 29, 2024 10:03am June 29, 2024 10:03am Supervision of high-risk Decem elliot 2023 10:03am Chiari malformation type I June 10:03am 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 June 29, 2024 10:03am History of recurrent miscarriages r 2024 4:03pm MTHFR mutation July 20, 2024 4: 03pm July 20, 2024 4: 03pm Supervision of high-risk Julua 2024 4:03pm Chiari malformation type I July 20, 2024 4:03pm 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 July 20, 2024 4:03pm ASCUS of cervix with negative high risk HPV August 01, 2024 1:28pm History of recurrent miscarriages Juluar 2024 1:28pm MTHFR mutation August 01, 2024 1 :28pm August 01, 2024 1 :28pm Supervision of high-risk Julua 2024 1:28pm Chiari malformation type I August 01, 2024 1:28pm 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 August 01, 2024 1:28pm History of recurrent miscarriages ua 2024 2:56pm MTHFR mutation August 17, 2024 2 :56pm August 17, 2024 2 :56pm Supervision of high-risk 2024 2:56pm Chiari malformation type I August 17, 2024 2:56pm 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 August 17, 2024 2:56pm Chief Complaint Admit Date 14 WK OB July 20, 2024 4: 03pm HEARTBEAT CK August 01, 2024 1 :28pm 18 WK OB August 17, 2024 2 :56pm SUPERVISION OF HIGH RISK Febru ho2024 12:26pm 22 WK OB September 16, 2024 11:2 0am HEARTBEAT CK September 30, 2024 10: 51am 26 WK OB October 12, 2024 10:5 3am 28 WK OB/GLUCOSE October 26, 2024 10: 25am ABN GLUCOSE LEVEL October 28, 2024 7:5 5am Reason for Visit Admit Date History of recurrent miscarriages Juluar 2024 4:03pm MTHFR mutation July 20, 2024 4: 03pm July 20, 2024 4: 03pm Supervision of high-risk Julua 2024 4:03pm Chiari malformation type I July 20, 2024 4:03pm 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 July 20, 2024 4:03pm ASCUS of cervix with negative high risk HPV August 01, 2024 1:28pm History of recurrent miscarriages 2024 1:28pm MTHFR mutation August 01, 2024 1 :28pm August 01, 2024 1 :28pm Supervision of high-risk Julua 2024 1:28pm Chiari malformation type I August 01, 2024 1:28pm 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 August 01, 2024 1:28pm History of recurrent miscarriages 2024 2:56pm MTHFR mutation August 17, 2024 2 :56pm August 17, 2024 2 :56pm Supervision of high-risk u 2024 2:56pm Chiari malformation type I August 17, 2024 2:56pm 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 August 17, 2024 2:56pm ASCUS of cervix with negative high risk HPV September 16, 2024 11:20am History of recurrent miscarriages September 16, 2024 11:20am MTHFR mutation September 16, 2024 11:2 0am September 16, 2024 11:2 0am Supervision of high-risk September 16, 2024 11:20am Chiari malformation type I September 16 11:20am 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 September 16, 2024 11:20am ASCUS of cervix with negative high risk HPV September 30, 2024 10:51am History of recurrent miscarriages March 21st, 2025 10:51am MTHFR mutation September 30, 2024 10: 51am September 30, 2024 10: 51am Supervision of high-risk September 30, 2024 10:51am Chiari malformation type I September 30 025 10:51am 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 September 30, 2024 10:51am ASCUS of cervix with negative high risk HPV October 12, 2024 10:53am History of recurrent miscarriages October 12, 2024 10:53am MTHFR mutation October 12, 2024 10:5 3am October 12, 2024 10:5 3am Supervision of high-risk October 12, 2024 10:53am Chiari malformation type I October 12 10:53am 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 October 12, 2024 10:53am ASCUS of cervix with negative high risk HPV October 26, 2024 10:25am History of recurrent miscarriages October 26, 2024 10:25am MTHFR mutation October 26, 2024 10: 25am October 26, 2024 10: 25am Supervision of high-risk October 26, 2024 10:25am Chiari malformation type I October 26 025 10:25am 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 October 26, 2024 10:25am Chief Complaint Admit Date HEARTBEAT CK August 01, 2024 1 :28pm 18 WK OB August 17, 2024 2 :56pm SUPERVISION OF HIGH RISK Febru ho2024 12:26pm 22 WK OB September 16, 2024 11:2 0am HEARTBEAT CK September 30, 2024 10: 51am 26 WK OB October 12, 2024 10:5 3am 28 WK OB/GLUCOSE October 26, 2024 10: 25am ABN GLUCOSE LEVEL October 28, 2024 7:5 5am 1 Y FU November 04, 2024 3:3 1pm 30 WK OB November 16, 2024 9:08am 32 WK OB November 25, 2024 10:02 am Reason for Visit Admit Date ASCUS of cervix with negative high risk HPV August 01, 2024 1:28pm History of recurrent miscarriages Juluar y 2024 1:28pm MTHFR mutation August 01, 2024 1 :28pm August 01, 2024 1 :28pm Supervision of high-risk Janua 2024 1:28pm Chiari malformation type I August 01, 2024 1:28pm 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 August 01, 2024 1:28pm History of recurrent miscarriages Februa 2024 2:56pm MTHFR mutation August 17, 2024 2 :56pm August 17, 2024 2 :56pm Supervision of high-risk Febru ho 2024 2:56pm Chiari malformation type I August 17, 2024 2:56pm 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 August 17, 2024 2:56pm ASCUS of cervix with negative high risk HPV September 16, 2024 11:20am History of recurrent miscarriages September 16, 2024 11:20am MTHFR mutation September 16, 2024 11:2 0am September 16, 2024 11:2 0am Supervision of high-risk September 16, 2024 11:20am Chiari malformation type I September 16 11:20am 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 September 16, 2024 11:20am ASCUS of cervix with negative high risk HPV September 30, 2024 10:51am History of recurrent miscarriages September 30, 2024 10:51am MTHFR mutation September 30, 2024 10: 51am September 30, 2024 10: 51am Supervision of high-risk September 30, 2024 10:51am Chiari malformation type I September 30, 10:51am 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 September 30, 2024 10:51am ASCUS of cervix with negative high risk HPV October 12, 2024 10:53am History of recurrent miscarriages October 12, 2024 10:53am MTHFR mutation October 12, 2024 10:5 3am October 12, 2024 10:5 3am Supervision of high-risk October 12, 2024 10:53am Chiari malformation type I October 12 10:53am 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 October 12, 2024 10:53am ASCUS of cervix with negative high risk HPV October 26, 2024 10:25am History of recurrent miscarriages October 26, 2024 10:25am MTHFR mutation October 26, 2024 10: 25am October 26, 2024 10: 25am Supervision of high-risk October 26, 2024 10:25am Chiari malformation type I October 26, 2 025 10:25am 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 October 26, 2024 10:25am Gestational diabetes mellitu s (GDM) affecting , antepartum November 04, 2024 3:31pm 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 November 04, 2024 3:31pm ASCUS of cervix with negative high risk HPV November 16, 2024 9:08am Gestational diabetes mellitu s (GDM) affecting , antepartum November 16, 2024 9:08am History of recurrent miscarriages November 9:08am MTHFR mutation November 16, 2024 9:08am November 16, 2024 9:08am Supervision of high-risk November 162024 9:08am Chiari malformation type I November 16, 2024 9:08am 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 November 16, 2024 9:08am ASCUS of cervix with negative high risk HPV November 25, 2024 10:02am Gestational diabetes mellitu s (GDM) affecting , antepartum November 25, 2024 10:02am History of recurrent miscarriages November 252024 10:02am MTHFR mutation November 25, 2024 10:02 am November 25, 2024 10:02 am Supervision of high-risk November 102024 10:02am Chiari malformation type I November 25 10:02am 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 November 25, 2024 10:02am Chief Complaint Admit Date 18 WK OB August 17, 2024 2 :56pm SUPERVISION OF HIGH RISK Febru ho2024 12:26pm 22 WK OB September 16, 2024 11:2 0am HEARTBEAT CK September 30, 2024 10: 51am 26 WK OB October 12, 2024 10:5 3am 28 WK OB/GLUCOSE October 26, 2024 10: 25am ABN GLUCOSE LEVEL October 28, 2024 7:5 5am 1 Y FU November 04, 2024 3:3 1pm 30 WK OB November 16, 2024 9:08am 32 WK OB November 25, 2024 10:02 am 34 WK OB December 09, 2024 9:56a m Reason for Visit Admit Date History of recurrent miscarriages Febr2024 2:56pm MTHFR mutation August 17, 2024 2 :56pm August 17, 2024 2 :56pm Supervision of high-risk u ho2024 2:56pm Chiari malformation type I August 17, 2024 2:56pm 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 August 17, 2024 2:56pm ASCUS of cervix with negative high risk HPV September 16, 2024 11:20am History of recurrent miscarriages September 16, 2024 11:20am MTHFR mutation September 16, 2024 11:2 0am September 16, 2024 11:2 0am Supervision of high-risk September 16, 2024 11:20am Chiari malformation type I September 16 11:20am 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 September 16, 2024 11:20am ASCUS of cervix with negative high risk HPV September 30, 2024 10:51am History of recurrent miscarriages September 30, 2024 10:51am MTHFR mutation September 30, 2024 10: 51am September 30, 2024 10: 51am Supervision of high-risk September 30, 2024 10:51am Chiari malformation type I September 30 10:51am 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 September 30, 2024 10:51am ASCUS of cervix with negative high risk HPV October 12, 2024 10:53am History of recurrent miscarriages October 12, 2024 10:53am MTHFR mutation October 12, 2024 10:5 3am October 12, 2024 10:5 3am Supervision of high-risk October 12, 2024 10:53am Chiari malformation type I October 12 10:53am 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 October 12, 2024 10:53am ASCUS of cervix with negative high risk HPV October 26, 2024 10:25am History of recurrent miscarriages October 26, 2024 10:25am MTHFR mutation October 26, 2024 10: 25am October 26, 2024 10: 25am Supervision of high-risk October 26, 2024 10:25am Chiari malformation type I October 26, 2 025 10:25am 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 October 26, 2024 10:25am Gestational diabetes mellitu s (GDM) affecting , antepartum November 04, 2024 3:31pm 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 November 04, 2024 3:31pm ASCUS of cervix with negative high risk HPV November 16, 2024 9:08am Gestational diabetes mellitu s (GDM) affecting , antepartum November 16, 2024 9:08am History of recurrent miscarriages November 9:08am MTHFR mutation November 16, 2024 9:08am November 16, 2024 9:08am Supervision of high-risk November 162024 9:08am Chiari malformation type I November 16, 2024 9:08am 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 November 16, 2024 9:08am ASCUS of cervix with negative high risk HPV November 25, 2024 10:02am Gestational diabetes mellitu s (GDM) affecting , antepartum November 25, 2024 10:02am History of recurrent miscarriages November 252024 10:02am MTHFR mutation November 25, 2024 10:02 am November 25, 2024 10:02 am Supervision of high-risk November 102024 10:02am Chiari malformation type I November 25 10:02am 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 November 25, 2024 10:02am ASCUS of cervix with negative high risk HPV December 09, 2024 9:56am Gestational diabetes mellitu s (GDM) affecting , antepartum December 09, 2024 9:56am History of recurrent miscarriages December 092024 9:56am MTHFR mutation December 09, 2024 9:56a m December 09, 2024 9:56a m Supervision of high-risk November 122024 9:56am Chiari malformation type I December 09 9:56am 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 December 09, 2024 9:56am Chief Complaint Admit Date SUPERVISION OF HIGH RISK Febru ho2024 12:26pm 22 WK OB September 16, 2024 11:2 0am HEARTBEAT CK September 30, 2024 10: 51am 26 WK OB October 12, 2024 10:5 3am 28 WK OB/GLUCOSE October 26, 2024 10: 25am ABN GLUCOSE LEVEL October 28, 2024 7:5 5am 1 Y FU November 04, 2024 3:3 1pm 30 WK OB November 16, 2024 9:08am 32 WK OB November 25, 2024 10:02 am 34 WK OB December 09, 2024 9:56a m 36 wk ob December 19, 2024 2:07p m Reason for Visit Admit Date ASCUS of cervix with negative high risk HPV September 16, 2024 11:20am History of recurrent miscarriages September 16, 2024 11:20am MTHFR mutation September 16, 2024 11:2 0am September 16, 2024 11:2 0am Supervision of high-risk September 16, 2024 11:20am Chiari malformation type I September 16 11:20am 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 September 16, 2024 11:20am ASCUS of cervix with negative high risk HPV September 30, 2024 10:51am History of recurrent miscarriages September 30, 2024 10:51am MTHFR mutation September 30, 2024 10: 51am September 30, 2024 10: 51am Supervision of high-risk September 30, 2024 10:51am Chiari malformation type I September 30, 10:51am 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 September 30, 2024 10:51am ASCUS of cervix with negative high risk HPV October 12, 2024 10:53am History of recurrent miscarriages October 12, 2024 10:53am MTHFR mutation October 12, 2024 10:5 3am October 12, 2024 10:5 3am Supervision of high-risk October 12, 2024 10:53am Chiari malformation type I October 12 10:53am 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 October 12, 2024 10:53am ASCUS of cervix with negative high risk HPV October 26, 2024 10:25am History of recurrent miscarriages October 26, 2024 10:25am MTHFR mutation October 26, 2024 10: 25am October 26, 2024 10: 25am Supervision of high-risk October 26, 2024 10:25am Chiari malformation type I October 26, 2 025 10:25am 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 October 26, 2024 10:25am Gestational diabetes mellitu s (GDM) affecting , antepartum November 04, 2024 3:31pm 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 November 04, 2024 3:31pm ASCUS of cervix with negative high risk HPV November 16, 2024 9:08am Gestational diabetes mellitu s (GDM) affecting , antepartum November 16, 2024 9:08am History of recurrent miscarriages November 9:08am MTHFR mutation November 16, 2024 9:08am November 16, 2024 9:08am Supervision of high-risk November 162024 9:08am Chiari malformation type I November 16, 2024 9:08am 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 November 16, 2024 9:08am ASCUS of cervix with negative high risk HPV November 25, 2024 10:02am Gestational diabetes mellitu s (GDM) affecting , antepartum November 25, 2024 10:02am History of recurrent miscarriages November 252024 10:02am MTHFR mutation November 25, 2024 10:02 am November 25, 2024 10:02 am Supervision of high-risk November 102024 10:02am Chiari malformation type I November 25 10:02am 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 November 25, 2024 10:02am ASCUS of cervix with negative high risk HPV December 09, 2024 9:56am Gestational diabetes mellitu s (GDM) affecting , antepartum December 09, 2024 9:56am History of recurrent miscarriages December 092024 9:56am MTHFR mutation December 09, 2024 9:56a m December 09, 2024 9:56a m Supervision of high-risk November 122024 9:56am Chiari malformation type I December 09 9:56am 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 December 09, 2024 9:56am ASCUS of cervix with negative high risk HPV December 19, 2024 2:07pm Gestational diabetes mellitu s (GDM) affecting , antepartum December 19, 2024 2:07pm History of recurrent miscarriages December 192024 2:07pm MTHFR mutation December 19, 2024 2:07p m December 19, 2024 2:07p m Supervision of high-risk December 19, 2024 2:07pm Chiari malformation type I December 19 2:07pm 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 DATE CREATED AUTHOR AUTHOR'S ORGANIZ ATION 01/06/2018 [facility] DATE CREATED AUTHOR AUTHOR'S ORGANIZ ATION 01/06/2018 [facility] DATE CREATED AUTHOR AUTHOR'S ORGANIZ ATION 07/11/2024 [facility] DATE CREATED AUTHOR AUTHOR'S ORGANIZ ATION 12/20/2024 [facility] Goals (unrecognized section and content) Goals may be documented in a n alternate sectionGoals may be documented in an alternate sectionGoals may be documented in an alternate sectionGoals may be documented in an alternate sectionGoals may be documented in an alternate sectionGoals may be documented in an alternate sectionGoals may be documented in an alternate sectionGoals may be documented in an alternate sectionGoals may be documented in an alternate sectionGoals may be documented in an alternate sectionGoals may be documented in an alternate sectionGoals may be documented in an alternate sectionGoals may be documented in an alternate sectionGoals may be documented in an alternate sectionGoals may be documented in an alternate sectionGoals may be documented in an alternate sectionGoals may be documented in an alternate sectionGoals may be documented in an alternate sectionGoals may be documented in an alternate section Care Teams (unrecognized sec tion and content) Team Status: Active Member Role Status Dates Dr. Warren Melendez MD Family Provider Active Dr. Warren Melendez MD Primary Care Provider Active Team Status: Active Member Role Status Dates Dr. Warren Melendez MD Primary Care Provider Active Justina Guido CNM Admit Provider, Attending Provid er, Other Provider Active Team Status: Inactive Member Role Status Dates Dr. Warren Melendez MD Primary Care Provider, Referring Provider Active Justina Guido CNM Attending Provider Active Team Status: Inactive Member Role Status Dates Dr. Warren Melendez MD Primary Care Provider, Referring Provider Active Dr. Moises Mazariegos MD Attending Provider Active Team Status: Inactive Member Role Status Dates Dr. Warren Melendez MD Primary Care Provider Active Justina Guido CNM Admit Provider, Attending Provid er Active Team Status: Inactive Member Role Status Dates Dr. Warren Melendez MD Primary Care Provi brett, Attending Provider, Referring Provider Active Justina Guido CNM Other Provider Active Team Status: Inactive Member Role Status Dates Dr. Warren Melendez MD Primary Care Provider Active Dr. Moises Mazariegos MD Attending Provider Active Team Status: Inactive Member Role Status Dates Dr. Warren Melendez MD Primary Care Provider Active Caroline Stern [employer] REGISTR[employer], UNIVERSITY REGISTRAR-C Attending Provider, Referring Provider Active Team Status: Active Member Role Status Dates Dr. Warren Melendez MD Primary Care Provider Active Caroline Stern UNIVERSITY REGISTRAR, UNIVERSITY REGISTRAR-C Attending Provider, Referring Provider Active Team Status: Inactive Member Role Status Dates Dr. Warren Melendez MD Referring Provider Active Justina Guido CNM Attending Provider Active Team Status: Inactive Member Role Status Dates Justina Guido CNM Attending Provider Active Dr. Warren Melendez MD Primary Care Provider, Referring Provider Active Team Status: Inactive Member Role Status Dates Dr. Warren Melendez MD Primary Care Provider Active Justina Guido CNM Attending Provider, Referring Pr ovider Active Team Status: Active Member Role Status Dates Farzaneh MATIAS DO Primary Care Provider Active Team Status: Inactive Member Role Status Dates Farzaneh MATIAS DO Primary Care Provider Active Start: May 23, 2024 End: May 23, 2024 Justina Guido CNM Attending Provider Active Start: May 23, 2024 End: May 23, 2024 Justina Guido CNM Referring Provider Active Start: May 23, 2024 End: May 23, 2024 Team Status: Inactive Member Role Status Dates Farzaneh MATIAS DO Primary Care Provider Active Start: May 25, 2024 End: May 25, 2024 Justina Guido CNM Attending Provider Active Start: May 25, 2024 End: May 25, 2024 Justina Guido CNM Referring Provider Active Start: May 25, 2024 End: May 25, 2024 Team Status: Inactive Member Role Status Dates Farzaneh Meraz VSC, DO Primary Care Provider Active Start: June 17, 2024 End: June 17, 2024 Farzaneh Meraz VSC, DO Referring Provider Active Start: June 17, 2024 End: June 17, 2024 Justina Guido CNM Attending Provider Active Start: June 17, 2024 End: June 17, 2024 Team Status: Inactive Member Role Status Dates Farzaneh Meraz VSC, DO Primary Care Provider Active Start: June 17, 2024 End: June 17, 2024 Justina Guido CNM Attending Provider Active Start: June 17, 2024 End: June 17, 2024 Justina Guido CNM Referring Provider Active Start: June 17, 2024 End: June 17, 2024 Team Status: Inactive Member Role Status Dates Farzaneh Meraz VSC, DO Primary Care Provider Active Start: June 29, 2024 End: June 29, 2024 Farzaneh Meraz VSC, DO Referring Provider Active Start: June 29, 2024 End: June 29, 2024 Dr. Pam Koo MD Attending Provider Active Start: June 29, 2024 End: June 29, 2024 Team Status: Inactive Member Role Status Dates Farzaneh Meraz VSC, DO Primary Care Provider Active Start: July 20, 2024 End: July 20, 2024 Farzaneh Meraz VSC, DO Referring Provider Active Start: July 20, 2024 End: July 20, 2024 Caroline Stern UNIVERSITY REGISTRAR, UNIVERSITY REGISTRAR-C Attending Provider Active Start: July 20, 2024 End: July 20, 2024 Team Status: Inactive Member Role Status Dates Farzaneh Meraz VSC, DO Primary Care Provider Active Start: August 01, 2024 End: August 01, 2024 Farzaneh Meraz VSC, DO Referring Provider Active Start: August 01, 2024 End: August 01, 2024 Reshma Driscoll CNM Attending Provider Active S tart: August 01, 2024 End: August 01, 2024 Team Status: Inactive Member Role Status Dates Farzaneh Meraz VSC, DO Primary Care Provider Active Start: August 17, 2024 End: August 17, 2024 Farzaneh Meraz VSC, DO Referring Provider Active Start: August 17, 2024 End: August 17, 2024 Caroline Stern UNIVERSITY REGISTRAR, UNIVERSITY REGISTRAR-C Attending Provider Active Start: August 17, 2024 End: August 17, 2024 Team Status: Inactive Member Role Status Dates Farzaneh Meraz VSC, DO Primary Care Provider Active Start: August 17, 2024 End: August 17, 2024 Caroline Stern UNIVERSITY REGISTRAR, UNIVERSITY REGISTRAR-C Attending Provider Active Start: August 17, 2024 End: August 17, 2024 Team Status: Active Member Role Status Dates Farzaneh Meraz VSC, DO Primary Care Provider Active Start: September 02, 2024 Dr. Pam Koo MD Attending Provider Active Start: September 02, 2024 Dr. Pam Koo MD Referring Provider Active Start: September 02, 2024 Team Status: Inactive Member Role Status Dates Farzaneh Meraz VSC, DO Primary Care Provider Active Start: September 05, 2024 End: September 05, 2024 Reshma Driscoll CNM Attending Provider Active S tart: September 05, 2024 End: September 05, 2024 Reshma Driscoll CNM Referring Provider Active S tart: September 05, 2024 End: September 05, 2024 Team Status: Inactive Member Role Status Dates Farzaneh Meraz VSC, DO Primary Care Provider Active Start: September 02, 2024 End: September 02, 2024 Dr. Pam Koo MD Attending Provider Active Start: September 02, 2024 End: September 02, 2024 Dr. Pam Koo MD Referring Provider Active Start: September 02, 2024 End: September 02, 2024 Team Status: Inactive Member Role Status Dates aFrzaneh Meraz VSC, DO Primary Care Provider Active Start: September 16, 2024 End: September 16, 2024 Farzaneh Meraz VSC, DO Referring Provider Active Start: September 16, 2024 End: September 16, 2024 Reshma Driscoll CNM Attending Provider Active S tart: September 16, 2024 End: September 16, 2024 Team Status: Inactive Member Role Status Dates Farzaneh Meraz VSC, DO Primary Care Provider Active Start: September 30, 2024 End: September 30, 2024 Farzaneh Meraz VSC, DO Referring Provider Active Start: September 30, 2024 End: September 30, 2024 Justina Guido CNM Attending Provider Active Start: September 30, 2024 End: September 30, 2024 Team Status: Inactive Member Role Status Dates Farzaneh Meraz VSC, DO Primary Care Provider Active Start: October 12, 2024 End: October 12, 2024 Farzaneh Meraz VSC, DO Referring Provider Active Start: October 12, 2024 End: October 12, 2024 Dr. Pam Koo MD Attending Provider Active Start: October 12, 2024 End: October 12, 2024 Team Status: Inactive Member Role Status Dates Farzaneh Meraz VSC, DO Primary Care Provider Active Start: October 26, 2024 End: October 26, 2024 Farzaneh Meraz VSC, DO Referring Provider Active Start: October 26, 2024 End: October 26, 2024 Dr. Pam Koo MD Attending Provider Active Start: October 26, 2024 End: October 26, 2024 Team Status: Inactive Member Role Status Dates Farzaneh Meraz VSC, DO Primary Care Provider Active Start: October 26, 2024 End: October 26, 2024 Reshma Driscoll CNM Attending Provider Active S tart: October 26, 2024 End: October 26, 2024 Reshma Driscoll CNM Referring Provider Active S tart: October 26, 2024 End: October 26, 2024 Team Status: Inactive Member Role Status Dates Farzaneh Meraz VSC, DO Primary Care Provider Active Start: October 28, 2024 End: October 28, 2024 Dr. Pam Koo MD Attending Provider Active Start: October 28, 2024 End: October 28, 2024 Dr. Pam Koo MD Referring Provider Active Start: October 28, 2024 End: October 28, 2024 Team Status: Inactive Member Role Status Dates Dr. Moises Mazariegos MD Attending Provider Active Sta rt: November 04, 2024 End: November 04, 2024 Farzaneh Meraz VSC, DO Primary Care Provider Active Start: November 04, 2024 End: November 04, 2024 Farzaneh Martinezer VSC, DO Referring Provider Active Start: November 04, 2024 End: November 04, 2024 Team Status: Inactive Member Role Status Dates Farzaneh Pereznger VSC, DO Primary Care Provider Active Start: November 16, 2024 End: November 16, 2024 Farzaneh Pereznger VSC, DO Referring Provider Active Start: November 16, 2024 End: November 16, 2024 Dr. Pam Koo MD Attending Provider Active Start: November 16, 2024 End: November 16, 2024 Team Status: Inactive Member Role Status Dates Farzaneh Pereznger VSC, DO Primary Care Provider Active Start: November 25, 2024 End: November 25, 2024 Farzaneh Kt VSC, DO Referring Provider Active Start: November 25, 2024 End: November 25, 2024 Dr. Pam Koo MD Attending Provider Active Start: November 25, 2024 End: November 25, 2024 Team Status: Inactive Member Role Status Dates Farzaneh Pereznger VSC, DO Primary Care Provider Active Start: December 09, 2024 End: December 09, 2024 Farzaneh Kt VSC, DO Referring Provider Active Start: December 09, 2024 End: December 09, 2024 Justina Guido CNM Attending Provider Active Start: December 09, 2024 End: December 09, 2024 Team Status: Inactive Member Role Status Dates Farzaneh Kt VSC, DO Primary Care Provider Active Start: December 19, 2024 End: December 19, 2024 Farzaneh Kt VSC, DO Referring Provider Active Start: December 19, 2024 End: December 19, 2024 Dr. Keshia Galvez , Attending Provider Activ e Start: December 19, 2024 End: December 19, 2024 Team Status: Active Member Role Status Dates Farzaneh Meraz VSC, DO Primary Care Provider Active Start: December 19, 2024 Dr. Keshia Galvez DO Attending Provider Activ e Start: December 19, 2024 Dr. Keshia Galvez , Referring Provider Activ e Start: December 19, 2024 FOR RECORDS PERTAINING TO PATIENTS WHO ARE [...] BE BASED ON THE PRIMARY CLINICAL RECORDS. [facility]. provides no warranty or guarantee of the accuracy or completeness of information in this document.
== END | disposition home or self-care (01) ==
LOC: OPUS 08:28
PROVIDERS: PCP Family Medicine; Referring Provider Registered Nurse; Visit Provider Registered Nurse
DX: O24.419 Gestational diabetes mellitus in pregnancy, unspecified control (principal); Z3A.36 36 weeks gestation of pregnancy
CPT/HCPCS: 76816

== ENCOUNTER → 2024-12-29 | Outpatient (CLI) | payer BC, SELFPAY | END | disposition home or self-care (01) | LOC: LABSPEC 16:34 | PROVIDERS: PCP Family Medicine; Referring Provider Advanced Practice Midwife; Visit Provider Advanced Practice Midwife | DX: O09.92 Supervision of high risk pregnancy, unspecified, second trimester (principal); Z3A.00 Weeks of gestation of pregnancy not specified | CPT/HCPCS: 87077; 87081; 87186 ==

== ENCOUNTER 2025-01-16 17:07 | Inpatient (IN) | payer BC, SELFPAY ==
[2025-01-16] VITALS (8 sets, daily range): BP systolic 117–132; BP diastolic 69–80; PULSE 72–78; RESP 16–18; TEMP 36.8–37.4; O2SAT 97–98; BMI 28.8
[2025-01-16 17:07] LABS: ROM Internal Control Test YES-OK TO RESULT pt. (Internal QC); ROM Patient Test POSITIVE (Negative); Record Kit Lot#, ROM+ K3358
--- NOTE | 2025-01-16 17:14 | HP.PCM.OB_ITS ---
HPI - General General Date of Admission: 01/16/25 Date of Service: 01/16/25 HPI Narrative CECY GALLEGOS, is a 29 F 38.6 who presents to unit for possible SROM. ROM came back positive and decision made for admission. 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 SAB (spontaneous ) Thyroiditis (spontaneous vaginal delivery) Thyroid disorder GBS (group B Streptococcus carrier), +RV culture, currently Thyroid disease affecting Supervision of high-risk Amenorrhea ASCUS of cervix with negative high risk HPV 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 Home Medications ?Medication ?Instructions ?Recorded ?Last Taken ?Type vitamin#30 30 mg iron-10 1 cap PO DAILY pregn irene 04/07/19 01/16/25 12:00 History mg iron-folic acid 1 mg-omg3 capsule aspirin 81 mg tablet,delayed 81 mg PO DAILY 12/22/23 0 01/16/25 09:00 History release (Adult Aspirin Regimen) blood sugar diagnostic (Blood #120 10/28/24 Unknown Rx Glucose Test strips) blood-glucose meter #1 10/28/24 Unknown Rx lancets 30 gauge (Droplet Lancets) #200 10/28/24 Un known Rx levothyroxine 50 mcg tablet 50 mcg PO DAILY #90 tabs 0 12/06/24 01/16/25 07:00 Rx Allergy/AdvReac Type Severity Reaction Status Date / Time banana Allergy Mild RASH Verified 01/16/25 16:55 Latex, Natural Rubber Allergy Mild Rash Verified 01/16/25 16:55 Family History Father , BLOOD CLOT BLOOD CLOT Surgical History S/P dilation and curettage (~01/11/24) H/O wisdom tooth extraction Social History (Updated 01/12/25 @ 08:35 by Caroline Graham) adopted: No household members: family housing: house number of children: 2 current occupational status: employed 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[employer] pets and animals: Yes (Outside dog and chickens) pets and animals: dog(s) and farm animals history of recent travel: No sexually active: Yes Smoking Status: Never smoker alcohol intake: never substance use type: does not use diet: gluten free well-balanced diet: daily or most days caffeine: No eating out: 1-3 times/week during the past year weight has: remained stable what type of physical activity do you participate in: walking and yoga frequency: 1-2 times per week duration: 15-30 minutes/day femi/faith: Evangelical seatbelt use: always do you feel safe at home: Yes additional social history: [place] History 7 Elective abortions Hx Para 2 Spontaneous abortions 4 Hx # Term Pregnancies Ectopic pregnancies Hx # Pregnancies Multiple births # of living children 2 Past Pregnancies Del. Date Name GA/Weeks Outcome Route Bth Weight Infant Gen Labor Lgth Anesthesia Del Locatn Provider FOB Unknown 03/2019 SAB spontaneous Unknown 07/2021 chemical Unknown 08/03/2023 miscarriage 6 spontaneous 04/29/20 River 39 live - full term 6# Male none [facility] Hanane [place] 07/10/22 Edgarphoebe Aaronth 39 live - full term 7#11oz Female none [facility] Hay [place] 01/11/24 spontaneous SM Delivery Date: 04/29/20 Last Updated by: Su MULLINS Delivery Date: 07/10/22 Last Updated by: Su MULLINS IOL Delivery Date: 01/11/24 Last Updated by: Keira Chen RN D&C Visit Details Expected Delivery Route/Plan Labor Preferences- CB/BF classes: [] labor support person: [] labor intervention preferences: [] pain management options preferred: [] cut cord/dad catch: [] : [] PP control planned: [] discussed possible routes of delivery and associated risks: [] special requests: [] Plans Covid status: [] Flu vaccine: [] Tdap vaccine: [] Rhogam: [] LARC form signed: [] Problem list reviewed and updated with the most current plan of care details and appropriate orders placed. Relevant counseling for the gestational age provided. Continue routine care and follow up unless otherwise noted in visit notes/problem list details OB Flowsheet Initial Weight: 128 lb Date -?-?-?-?-?-?-?-?-?-?-?-?- EGA Weight BP Urine Prot -?-?-?-?-?-?-?-?-?-?-?-?- Glucose FHR FuHt Pres Dilation -?-?-?-?-?-?-?-?-?-?-?-?- Effaced St Visit Note 06/17/24 -?-?-?-?-?-?-?-?-?-?-?-?- 9w 0d 128 lb 4 oz (+4 oz) 127/84 -?-?-?-?-?-?-?-?-?-?-?-?- 168 -?-?-?-?-?-?-?-?-?-?-?-?- LC- CRL 1.9cm co n with LMP. on progesterone for hx of multiple losses. no bleeding. declines nipt.tsh/free t3/4 added. 06/29/24 -?-?-?-?-?-?-?-?-?-?-?-?- 10w 5d 127 lb (-16 oz) 121/78 Negative -?-?-?-?-?-?-?-?-?-?-?-?- Negative 168 -?-?-?-?-?-?-?-?-?-?-?-?- SM- no vb lof cr amping 07/20/24 -?-?-?-?-?-?-?-?-?-?-?-?- 13w 5d 128 lb 8 oz (+8 oz) 112/74 Negative -?-?-?-?-?-?-?-?-?-?-?-?- Negative 163 -?-?-?-?-?-?-?-?-?-?-?-?- MH-No VB. Nausea resolved. Br US confirm FHT 08/01/24 -?-?-?-?-?-?-?-?--?-?-?-?- 15w 3d 131 lb (+3 lb) 129/80 Negative -?-?-?-?-?-?-?-?-?-?-?-?- Negative 146 -?-?-?-?-?-?-?-?-?-?-?-?- KW- no vb/crampi ng. movement and FHT with US today. doing well. 08/17/24 -?-?-?-?-?-?-?-?-?-?-?-?- 17w 5d 133 lb 4 oz (+5 lb 4 oz) 110/62 Negative -?-?-?-?-?-?-?-?-?-?-?-?- Negative 160 -?-?-?-?-?-?-?-?-?-?-?-?- -NO VB. Cheliin g movement. Nausea improved. Repeat thyroid labs today/[facility] 09/16/24 -?-?-?-?-?-?-?-?-?-?-?-?- 22w 0d 139 lb (+11 lb) 124/74 Negative -?-?-?-?-?-?-?-?-?-?-?-?- Negative 150 -?-?-?--?-?-?-?-?-?-?-?-?- KW- no vb/lof/ct x. good fm US reviewed. 09/30/24 -?-?-?-?-?-?-?-?-?-?-?-?- 24w 0d 140 lb (+12 lb) 108/69 Negative -?-?-?-?-?-?-?-?-?-?-?-?- Negative 140 24 -?-?-?-?-?-?-?-?-?-?-?-?- LC- no vb/ctx/lo f. good fm. LC- no vb/ctx/lof. good fm. 28 week labs ordered, plans fresh test. 10/12/24 -?-?-?-?-?-?-?-?-?-?-?-?- 25w 5d 144 lb 6 oz (+16 lb 6 oz) 117/77 Negative -?-?-?-?-?-?-?-?-?-?-?-?- Negative 145 26 -?-?-?-?-?-?-?-?-?-?-?-?- SM- no vb lof go od fm nore gular ctx 10/26/24 -?-?-?-?-?-?-?-?-?-?-?-?- 27w 5d 148 lb (+20 lb) 114/74 Negative -?-?-?-?-?-?-?-?-?-?-?-?- Negative 140 28 -?-?-?-?-?-?-?-?-?-?-?-?- SM- no vb lof go od fm nor egualr ctx 11/16/24 -?-?-?-?-?-?-?-?-?-?-?-?- 30w 5d 148 lb 2 oz (+20 lb 2 oz) 117/72 Negative -?-?-?-?-?-?-?-?-?-?-?-?- Negative 135 31 -?--?-?-?-?-?-?-?-?-?-?-?- SM- SM- no vb lof good fm no reu galr ctx dicsussed nutrition education need to balance out eating carbs postprandials all great but fastings borderline. 11/25/24 -?-?-?-?-?-?-?-?-?-?-?-?- 32w 0d 146 lb 6 oz (+18 lb 6 oz) 111/69 Trace -?-?-?-?-?-?-?-?-?-?-?-?- Negative 145 32 -?-?-?-?-?-?-?-?-?-?-?-?- SM- no vb lof go od fm no regular ctx- had some jacey buitrago yesterday 12/09/24 -?-?-?-?-?-?-?-?-?-?-?-?- 34w 0d 152 lb (+24 lb) 113/70 Negative -?-?-?-?-?-?-?-?-?-?-?-?- Negative 140 33 -?-?-?-?-?-?-?-?-?-?-?-?- LC- all fasting under 95 and all pp under 120. no ctx/lof/vb. good fm. LC- all fasting under 95 and all pp under 120. no ctx/lof/vb. good fm. 36 week us ordered. 12/19/24 -?-?-?-?-?-?-?-?-?-?-?-?- 35w 3d 155 lb 6 oz (+27 lb 6 oz) 114/71 Negative -?-?-?-?-?-?-?-?-?-?-?-?- Negative 145 36 Cephalic -?-?-?-?-?-?-?-?-?-?-?-?- JV- cephalic on bedside scan. no complaints today. normal glucose levels. due for tsh. can not have epidural. 12/29/24 -?-?-?-?-?-?-?-?-?-?-?-?- 36w 6d 157 lb 8 oz (+29 lb 8 oz) 121/69 Negative -?-?-?-?-?-?-?-?-?-?-?-?- Negative 140 37 Cephalic 2 -?-?-?-?-?-?-?-?-?-?-?-?- 70 -2 KW- no vb/ lof/reg ctx. good fm. GBS today 01/05/25 -?-?-?-?-?-?-?-?-?-?-?-?- 37w 6d 159 lb 6 oz (+31 lb 6 oz) 132/86 Negative -?-?-?-?-?-?-?-?-?-?-?-?- Negative 140 37 Cephalic 2 -?-?-?-?-?-?-?-?-?-?-?-?- SM- no vb lof go od fm n oreuglar ctx bS controlled 01/12/25 -?-?-?-?-?-?-?-?-?-?-?-?- 38w 6d 158 lb (+30 lb) 108/67 Negative -?-?-?-?-?-?-?-?-?-?-?-?- Negative 140 38 Cephalic 2 -?-?-?-?-?-?-?-?-?-?-?-?- Sm- no vb lof go od fm n oregular ctx plan IOL 40 weeks NST FHR Rate Baby A Baseline: 135 Variability:: Moderate Accelerations:: 15 x 15 Decelerations:: None NST Reactive:: Yes FHR Category:: Category I Uterine Activity:: occasional ROS Constitutional Constitutional: Denies change in weight, fatigue, fever(s), headache(s), poor appetite or weakness Eyes Eyes: Denies blurry vision, change in vision, floaters, seeing flashes or spots in vision ENT HEENT: Denies dizziness, headache(s), loss taste/smell or sore throat Cardiovascular Cardiovascular: Denies chest pain, dizziness, dyspnea, irregular heart rhythm, lightheadedness, palpitations or rapid heart rate Respiratory/Chest Respiratory/Chest: Denies change in mental status, chest tightness, cough, dyspnea or breast pain Gastrointestinal Gastrointestinal: Denies anorexia, chewing difficulty, constipation, diarrhea or weight changes Genitourinary Genitourinary: Denies difficulty urinating, dysuria, flank pain, genital pain, urinary frequency or urinary urgency Musculoskeletal Musculoskeletal: Denies back pain, difficulty walking, extremity pain, joint pain, muscle cramps or muscle weakness Integumentary Integumentary: Denies lesions or unusual bruising Neurologic Neurologic: Denies abnormal movements, abnormal speech, dizziness, numbness, seizure-like activity, syncope or weakness Psychiatric Psychiatric: Denies behavioral changes, change in appetite, confusion, depression, homicidal ideation, suicidal ideation or suicidal thoughts Endocrine Endocrinology: Denies excessive sweating, polydipsia or polyuria Hematologic/Lymphatic Hematologic/Lymphatic: Denies anemia Allergic/Immunologic Allergic/Immunologic: Denies itchy eyes, lip swelling, throat swelling, tongue swelling or wheezing Vital Signs Vital Signs Vital Signs: 01/16/25 16:30 01/16/25 16:30 01/16/25 16:34 Temperature Temperature Source Pulse Rate Respiratory Rate 16 Blood Pressure 122/75 H BP Systolic 122 BP Diastolic 75 Pulse Ox 98 01/16/25 16:34 01/16/25 16:34 01/16/25 16:34 Temperature Temperature Source Temporal Pulse Rate 74 Respiratory Rate 16 Blood Pressure BP Systolic BP Diastolic Pulse Ox 01/16/25 16:34 01/16/25 16:34 Temperature 98.2 F Temperature Source Pulse Rate Respiratory Rate Blood Pressure BP Systolic BP Diastolic Pulse Ox 98 Weight Weight: 162 lb 9.6 oz Body Mass Index (BMI) 28.8 Physical Exam Const alert, oriented x3 and no apparent distress General Appearance: cooperative Orientation / Consciousness: awake HEENT normocephalic Neck full ROM Lymph Lymphatic: no lymphadenopathy noted Chest inspection of chest normal Resp normal respiratory effort and normal air movement Effort and Inspection: able to speak in complete sentences and symmetric chest movement GI soft to palpation and non-tender Inspection: gravid Palpation: soft; Negative for tender external exam normal Manual OB Exam: dilated 3, effaced 70 and station -2 Back/Spine normal to inspection Extremity normal to inspection and full ROM Skin no rashes or lesions noted Psych mental status grossly normal Appearance: grossly normal Speech: normal speech Labs Labs Labs: Blood Type A POSITIVE Antibody Screen NEGATIVE Hct 33.7 % (37-47) L Hgb 11.7 g/dL (12.0-15.0) L Obstetrics Ultrasound Syphilis Total Ab Nonreactive (Nonreactive) Rubella IgG Antibody Reactive (Nonreactive) Hep Bs Antigen Non-Reactive (Nonreactive) Hepatitis C Antibody Non-Reactive (Nonreactive) Chlamydia DNA (RORY) Negative (Negative) N.gonorrhoeae DNA (RORY) Negative (Negative) HIV 1&2 Antibody Nonreactive (Nonreactive) Glucose 1 Hr 50 gm 152 mg/dL (70-140) H Gest Glucose Tolerance MG/DL Rhogam given: No Miscellaneous Test Assessment & Plan (1) Spontaneous rupture of amniotic membranes: COMMENT: clear fluid PLAN: Patient presents IAL, plan expectant management for , pitocin/AROM PRN if needed. Pain management: plans no epidural. GBS positive plan IV PCN. Management of any complications: none I have reviewed the [facility] and made any clinically relevant updates. Dr Booker aware of assessment, plan and agrees with above (2) Positive GBS test: COMMENT: treat in labor (3) Gestational diabetes mellitus (GDM) affecting , antepartum: COMMENT: diet controlled, growth US at 36 weeks. 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 anatomy reviewed. (7) History of recurrent miscarriages: COMMENT: on progesterone until 10-12 weeks (8) Chiari malformation type I: COMMENT: s/p neurosurgery consult. no regional anesthesia. 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
[2025-01-16] MEDS: Lactated Ringers 1,000 ML 50 ML IV (17:55)
[2025-01-16] MEDS: Penicillin G Pot 5,000,000 UNITS in 0.9% Normal Saline (100mL MB+) 100 ML 150 UNITS IV (18:00)
[2025-01-16 18:30] LABS: Hematocrit 37.5 % (37-47); Hemoglobin 13.5 g/dL (12.0-15.0); Immature Granulocytes Count 0.120 X10^3/uL (0.0-0.0); Mean Corp Hgb Conc 36.0 g/dL (32-36); Mean Corpuscular Volume 88.9 fL (81-99); Mean Platelet Vol. 10.0 fl (6.2-12.0); NRBC Flagged by Analyzer 0 % (0-5); Platelet Count 217 K/mm3 (150-450); RBC Distribution Width CV 12.8 % (11.6-14.6); RBC Distribution Width SD 41.1 fl (35.1-43.9); Red Blood Count 4.22 M/mm3 (4.2-5.4); White Blood Count 8.3 K/mm3 (4.4-11.0)
[2025-01-16 19:05] LABS: Syphilis Antibodies Nonreactive (Nonreactive)
[2025-01-16] MEDS: Penicillin G 3,000,000 Units 50 ML 100 UNITS IV (22:00)
--- NOTE | 2025-01-16 22:13 | PN_ITS ---
Progress Note Coping well with contractions current tracing: FHT: 140 Moderate variability reactive no decelerations category I tracing [place]: 2-6 Contractions Membranes:ruptured for clear SVE:4/80/-2 A/P: Continue with position changes Titrate pitocin per protocol Epidural per anesthesia PCN for GBS prophylaxis Anticipate Dr Booker aware of above assessment and agrees with plan of care Assessment & Plan Assessment/Plan (1) Positive GBS test: (2) Gestational diabetes mellitus (GDM) affecting , antepartum: (3) Supervision of high-risk : QUALIFIERS: Trimester: second trimester Qualified Code(s): O09.92 - Supervision of high risk , unspecified, second trimester (4) : QUALIFIERS: Weeks of gestation: 38 weeks Qualified Code(s): Z3A.38 - 38 weeks gestation of (5) History of recurrent miscarriages: (6) Chiari malformation type I: (7) Spontaneous rupture of amniotic membranes: (8) MTHFR mutation: (9) 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
[2025-01-17] VITALS (33 sets, daily range): BP systolic 106–191; BP diastolic 58–130; PULSE 58–86; RESP 16–18; TEMP 36.3–37.2; O2SAT 94–98
[2025-01-17] MEDS: Oxytocin 15 Units/NS 250ml 15 UNITS/250 ML IV.SOLN 2 UNITS IV (00:10)
[2025-01-17] MEDS: LACTATED RINGERS 500 ML 999 ML IV (00:30)
[2025-01-17] MEDS: Oxytocin 15 Units/NS 250ml 15 UNITS/250 ML IV.SOLN 334 UNITS IV (02:08)
[2025-01-17] MEDS: Lidocaine 1% (20 ml mdv) 20 ML Vial INFILT (02:15)
--- NOTE | 2025-01-17 02:25 | EX.PCM.OBVAG ---
Assessment & Plan (1) Vaginal delivery: COMMENT: [place]ag [place] (2) Positive GBS test: COMMENT: treat in labor (3) Gestational diabetes mellitus (GDM) affecting , antepartum: COMMENT: diet controlled, growth US at 36 weeks. delivery by 40 (4) Supervision of high-risk : QUALIFIERS: Trimester: second trimester Qualified Code(s): O09.92 - Supervision of high risk , unspecified, second trimester COMMENT: PRR , GERMAN 01/20/25, PC Angel Luis, [place] (5) : QUALIFIERS: Weeks of gestation: 38 weeks Qualified Code(s): Z3A.38 - 38 weeks gestation of COMMENT: NIPT low risk, carrier and ntd screen declined. anatomy reviewed. (6) History of recurrent miscarriages: COMMENT: on progesterone until 10-12 weeks (7) Chiari malformation type I: COMMENT: s/p neurosurgery consult. no regional anesthesia. 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 Vaginal Delivery Information Procedure Performed: Spontaneous Vaginal Delivery Surgeon/Practitioner: Reshma Driscoll Date of Procedure: 01/17/25 Pre-Procedure Diagnosis: see problem list Post-Procedure Diagnosis: same Type of anesthesia: None Estimated Blood Loss: 100 Time of Delivery: 02:03 Findings Description of procedure: Progressed well to 10cm dilated and made steady progress with effective maternal pushing. Delivered the head in FABIAN presentation. The head was delivered atraumatically and a loose nuchal cord was identified and was easily reduced over the 's head. The anterior and posterior shoulders delivered without complication followed by the rest of the and the was placed on the maternal abdomen. Delayed cord clamping was employed for approximately 3 minutes. Cord was clamped and cut and gentle traction was applied to the cord and the placenta delivered spontaneously. Immediately following, it was noted to be intact with a 3 vessel cord. Uterine bleeding stable. The perineum and vagina were inspected and noted to have a first degree laceration which was repaired with 3-0 Vicryl in the usual fashion. EBL was 100cc. Patient and tolerated delivery well. Apgars 7/9. Dr Perera notified of vaginal delivery and orders reviewed. Physician agrees with current plan of care. 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
--- NOTE | 2025-01-17 02:30 | DCINST_ITS ---
Discharge Instructions Diet Discharge Diet: No restrictions DC O2, CPAP, BIPAP needs Home O2 Discharge instructions: No Dressing / Incision Discharge Activity: Return to Normal Activity May resume sexual activity in: 6-8 weeks Dressing / Incision Call your doctor if you observe: Fever of 101 or Higher, Coldness, Increased Pain, Numbness or Tingling, Change in Color, Inability to urinate, Inability to have a bowel movement, Using more than 1 pad per hour, Shortness of breath, Dizziness, Fainting spells, Swelling in the ankles, Chest pain, Increased p alpitations (irregular heartbeat), Calf discomfort and Uncontrolled pain Follow Up Care Please Follow Up With: Reshma Driscoll CNM When: Please call the office to schedule your follow up appointment in 6 weeks. If you had high blood pressure please call to schedule an appointment in 2 weeks. Test Results: Test results from this visit will be discussed in further detail at your follow- up appointment, if applicable. Discharge Plan Admission Admit Date/Time: 01/16/25 17:07 Attending Provider: Reshma Driscoll Primary Care Provider: Farzaneh Meraz Discharge Orders/Prescriptions Prescriptions: No Action PNV #[id number] 30 mg iron-10 mg iron-1 mg capsule 1 cap PO DAILY aspirin [Adult Aspirin Regimen] 81 mg tablet,delayed release (DR/EC) 81 mg PO DAILY (DME) Blood Glucose Test Strip See Rx Instructions .ROUTE .MEDSUPPLY Qty: 120 6RF Rx Instructions: Check blood sugars Fasting and 2 hours after breakfast, lunch, and dinner. (DME) blood-glucose meter Misc See Rx Instructions .ROUTE .MEDSUPPLY Qty: 1 0RF Rx Instructions: As directed (DME) lancets [Droplet Lancets] 30 gauge misc See Rx Instructions .ROUTE .MEDSUPPLY Qty: 200 6RF Rx Instructions: Check blood sugars fasting and 2 hours after breakfast, lunch, and supper. levothyroxine 50 mcg tablet 50 mcg PO DAILY Qty: 90 3RF Referrals / Follow Up: Farzaneh Meraz, DO [Primary Care Provider] -
[2025-01-17] MEDS: Oxytocin 15 Units/NS 250ml 15 UNITS/250 ML IV.SOLN 83 UNITS IV (02:43)
[2025-01-18 04:36] VITALS: BP 112/75; PULSE 60; RESP 14; TEMP 36.3; O2SAT 98
[2025-01-18] MEDS: Senna/Docusate Sodium 1 Tablet PO (07:37)
[2025-01-18 07:54] VITALS: BP 111/85; PULSE 57; RESP 16; TEMP 36.4; O2SAT 97
--- NOTE | 2025-01-18 07:54 | PCM.PN.OB ---
Subjective Subjective Patient doing well without complaints. Tolerating PO. Ambulating and voiding without difficulty. Feeding well. Denies chest pain, shortness of breath, calf pain/swelling, fevers, chills, lightheadedness. Objective Data Objective Data Vital Signs: Vital Signs Temp Pulse Resp BP Pulse Ox O2 Del Method 97.4 F L 60 14 112/75 98 Room Air 01/18/25 04:36 01/18/25 04:36 01/18/25 04:36 01/18/25 04:36 01/18/25 04:36 01/18/25 04:36 Oxygen Delivery Method Room Air Weight: 162 lb 9.6 oz Body Mass Index (BMI) 28.8 Intake & Output: Intake and Output for Last 24 Hours 01/16/25 01/17/25 01/18/25 23:59 23:59 23:59 Intake Total 150 / 150 1369.86 / 1369.86 Output Total 100 / 100 Balance 150 / 150 1269.86 / 1269.86 Lab / Micro Data 01/16/25 17:55 Labs: Laboratory Results - last 24 hr 01/18/25 06:58: POC Glucose 75 Physical Exam Const alert and oriented x3 HEENT normocephalic Eyes PERRL Neck full ROM Resp normal respiratory effort GI soft to palpation GI Narrative: FF below U Assessment & Plan (1) Vaginal delivery: COMMENT: [place] boy [place] (2) Gestational diabetes mellitus (GDM) affecting , antepartum: COMMENT: diet controlled, growth US at 36 weeks. delivery by 40 PLAN: Plan s/p PPD # 1 1. routine post delivery care 2. breast feeding- support given 3. rh positive 4. rubella immune 5. glucose stable 6. plans home today
[2025-01-18 13:36] VITALS: BP 124/80; PULSE 68; RESP 18; TEMP 36.6; O2SAT 99
--- OUTSIDE RECORDS SUMMARY | 2025-01-19 02:29 | XMS RPT_ITS | CCD ---
Author Organization [facility] CliniSywa Care Team Providers Care Corporate Services Manager Name Role Phone Hoppes, Opal A. Unavailable [phone] LODHAWALA, VICTOR M B Unavailable Unavailable HOPPES, OPAL A Unavailable Unavailable LODHAWALA, VICTOR M B Unavailable Unavailable HOPPES, OPAL A Unavailable Unavailable LODHAWALA, VICTOR M B Unavailable Unavailable HOPPES, OPAL A Unavailable Unavailable HOPPES, OPAL A Unavailable Unavailable BEMYLA QUESADA Unavailable Unavailable HOPPES, OPAL A Unavailable Unavailable LODHAWALA, VICTOR M B Unavailable Unavailable TABETDARREN Unavailable Unavail able STEPHY PORTER Unavailable Unavailable KOPADMA SOTO Unavailable Unavail able HOPPES, OPAL A. Unavailable Unavailable Lodhawala, Victor M B Unavailable Unavailable Hoppes, Opal A Unavailable Unavailable ADRIÁN FLYNN. Unavailable Unavailable Hoppes, Opal A Unavailable Unavailable LODHAWALA, VICTOR M BHUPENDRABHAI Unavailable U navailable Dr. Warren Melendez Primary Care Provider [phone] Dr. Warren Melendez Referring Provider Dr. Pam Koo Attending Provider Dr. Keshia Galvez Attending Provider Dr. Warren Melendez Primary Care Provider [phone] Dr. Warren Melendez Referring Provider Jarred ALCARAZ, CONNIE Velazquez Attending Provider [phone] Dr. Pam Koo Attending Provider Dr. Warren Melendez Primary Care Provider Dr. Warren Melendez Referring Provider [phone] Pam Koo Attending Provider Jarred JUNIOR FINANCIAL ANALYST, JUNIOR FINANCIAL ANALYST-C Caroline Attending Provider Dr. Keshia Galvez Attending [...] Provider WARREN MELENDEZ Primary Care Unavailable NANCY FORTUNE Attending Unavailable KESHIA PERERA [facility] Farzaneh Meraz DO Primary Care Provider Hay COVINGTONM, Justina Attending Provider Guido CNM, Justina Referring Provider Farzaneh Meraz DO Referring Provider Dr. Pam Koo MD Attending Provider Jarred JUNIOR FINANCIAL ANALYST-CCaroline Attending Provider Reshma Driscoll CNM Attending Provider Dr. Pam Koo MD Referring Provider Reshma Driscoll CNM Referring Provider Kt DO, Farzaneh Primary Care Provider Kt DO, Farzaneh Referring Provider [place] JUNIOR FINANCIAL ANALYST-C, Caroline Attending Provider Americo CNM, Reshma Attending Provider [phone] Hanane MARIE, Dr. Orozco Attending Provider [phone] Dr. Pam Koo MD Referring Provider Americo CNM, Reshma Referring Provider [phone] Hay CNM, Justina Attending Provider Kt DO, Farzaneh Primary Care Provider Kt DO, Farzaneh Referring Provider [place] JUNIOR FINANCIAL ANALYST-C, Caroline Attending Provider King CYNTHIA, Dr. De Leon Attending Provider Kt DO, Farzaneh Primary Care Provider Kt DO, Farzaneh Referring Provider Americo COVINGTONM, Reshma Attending Provider [phone] Kt DO, Farzaneh Primary Care Provider Kt DO, Farzaneh Referring Provider Dr. Keshia Galvez DO Attending Provider Dr. Keshia Galvez DO Referring Provider Hay CNM, Justina Referring Provider [phone] Kt DO, Farzaneh Primary Care Provider Americo REARDON, Reshma Attending Provider [phone] Hanane MARIE, Dr. Orozco Attending Provider [phone] Americo COVINGTONM, Reshma Referring Provider [phone] Dr. Pam Koo MD Referring Provider Kt VSC, Farzaneh Primary Care Unavailable Justina Guido Attending Unavailable Justina Guido Referring Unavailable Kt VSC, Farzaneh Primary Care Unavailable Anthony Guidosay Referring Unavailable Justina Guido Attending Unavailable Kt VSC, Farzaneh Primary Care Unavailable Keshia Galvez Attending Unavailabl e Keshia Galvez Referring Unavailabl e Kt VSC, Farzaneh Referring Unavailable Kt VS, Farzaneh Primary Care Unavailable Pam Koo Attending Unavailable Kt VSC, Farzaneh Attending Unavailable Kt VSC, Farzaneh Primary Care Unavailable Kt VSC, Farzaneh Primary Care Unavailable Jarred JUNIOR FINANCIAL ANALYST, Caroline Attending Unavailable Kt VSC, Farzaneh Primary Care Unavailable Reshma Driscoll Attending Unavailable Reshma Driscoll Referring Unavailable Kt VSC, Farzaneh Primary Care Unavailable Justina Guido Attending Unavailable Guido, Justina Referring Unavailable Kt VSC, Farzaneh Primary Care Unavailable GuidoJustina Referring Unavailable Justina Guido Attending Unavailable Kt VSC, Farzaneh Referring Unavailable Kt VSC, Farzaneh Primary Care Unavailable Justina Guido Attending Unavailable Kt VSC, Farzaneh Referring Unavailable Kt VSC, Farzaneh Primary Care Unavailable Moises Mazariegos Attending Unavailable Pam Koo Attending Unavailable Kt VSC, Farzaneh Referring Unavailable Kt VSC, Farzaneh Primary Care Unavailable Kt VSC, Farzaneh Referring Unavailable Kt VSC, Farzaneh Primary Care Unavailable Justina Guido Attending Unavailable Kt VSC, Farzaneh Referring Unavailable Kt VSC, Farzaneh Primary Care Unavailable Keshia Galvez Attending Unavailabl e Pam Koo Attending Unavailable Kt VSC, Farzaneh Primary Care Unavailable Kt VSC, Farzaneh Referring Unavailable Melendez, Warren Primary Care Unavailable Melnedez, Warren Referring Unavailable Keshia Galvez Attending Unavailabl e Kt VSC, Farzaneh Referring Unavailable Kt VSC, Farzaneh Primary Care Unavailable Reshma Driscoll Attending Unavailable Kt VSC, Farzaneh Referring Unavailable Kt VSC, Farzaneh Primary Care Unavailable Jarred JUNIOR FINANCIAL ANALYSTCaroline Attending Unavailable Kt VSC, Farzaneh Primary Care Unavailable Pam Koo Referring Unavailable Pam Koo Attending Unavailable Kt VSC, Farzaneh Referring Unavailable Kt VSC, Farzaneh Primary Care Unavailable Reshma Dirscoll Attending Unavailable Kt VSC, Farzaneh Referring Unavailable Kt VSC, Farzaneh Primary Care Unavailable Reshma Driscoll Attending Unavailable Kt VSC, Farzaneh Referring Unavailable Kt VSC, Farzaneh Primary Care Unavailable Pam Koo Attending Unavailable Kt VSC, Farzaneh Primary Care Unavailable Reshma Driscoll Attending Unavailable Reshma Driscoll Referring Unavailable Kt VSC, Farzaneh Primary Care Unavailable Reshma Driscoll Attending Unavailable Reshma Driscoll Referring Unavailable Kt VSC, Farzaneh Referring Unavailable Kt VSC, Farzaneh Primary Care Unavailable Reshma Driscoll Attending Unavailable Pam Koo Attending Unavailable Kt VSC, Farzaneh Primary Care Unavailable Pam Koo Referring Unavailable Kt VSC, Farzaneh Referring Unavailable Kt VSC, Farzaneh Primary Care Unavailable Justina Guido Attending Unavailable Pam Koo Attending Unavailable Kt VSC, Farzaneh Primary Care Unavailable Kt VSC, Farzaneh Referring Unavailable Kt VSC, Farzaneh Referring Unavailable Kt VSC, Farzaneh Primary Care Unavailable Pam Koo Attending Unavailable Kt VSC, Farzaneh Referring Unavailable Kt VSC, Farzaneh Primary Care Unavailable Jarred ALCARAZ, Caroline Attending Unavailable Pam Koo Attending Unavailable Kt VSC, Farzaneh Referring Unavailable Kt VSC, Farzaneh Primary Care Unavailable Allergies Allergy Classification Reported Allergen(s) Allergy Type Date of Onset Reaction(s) Facility (20 sources) Banana Extract; Translations: [BANANA] Drug Allergy 9 [facility] (1 source) Latex; Translations: [LATEX] Propensity to adverse reactions to drug (disorder) 4 [facility] Repository (1 source) OTHER; Translations: [OTHER] Propensity to adverse reactions to food (disorder) 0 [facility] Repository (12 sources) natural latex rubber Allergy to substance 5 [facility] (1 source) Banana Extract Drug Allergy 5 [facility] Repository (1 source) natural latex rubber Drug allergy (disorder) 5 [facility] Repository Medications Current Medications Medication Drug Class(es) [...] 06, 2021 12:00am October 30, 2022 10:34am MTHFR Start: 03-14-2020 End: 06-13-2020 take 1 tablet by mouth once daily Aspirin 81 MG tablet Discontinued 81 mg PO DAILY@0800 March 14, 2020 12:00am June 13, 2020 12:41pm Blood-Glucose Meter misc (10 sources) Start: 10-28-2024 Blood-Glucose Meter misc Active 0 .ROUTE .MEDSUPPLY 1 0 October 28, 2024 12:00am As directed Start: 10-28-2024 Blood-Glucose Meter misc Active 0 .ROUTE .MEDSUPPLY 1 October 28, 2024 12:00am As directed Pnv #53-Nxtz-Kiubq Acid-Omeg a3 30 mg iron-10 mg iron-1 mg capsule (12 sources) Start: 04-07-2019 Pnv #30-Iron-F olic Acid-Omega3 30 mg iron-10 mg iron-1 mg capsule Active 1 NMA PO DAILY 0 April 07, 2019 12:00am Start: 04-07-2019 Pnv [...] 2:56pm Start: 04-07-2019 take 1 capsule by [facility] once daily vitamin#30 30 mg iron-10 mg iron-folic acid 1 mg-omg3 capsule Active 1 CAP PO DAILY April 06, 2019 11:00pm Start: 04-07-2019 take 1 capsule by [facility] once daily vitamin#30 30 mg iron-10 [...] mcg tablet Discontinued 50 ug PO DAILY 90 0 September 08, 2024 10:09am December 06, 2024 3:28pm Start: 08-12-2021 End: 11-02-2023 take 1 tablet by mouth once daily Levothyroxine (Synthroid) 25 mcg tablet Discontinued 25 ug PO DAILY 30 3 April 14, 2022 11:09am July 09, 2022 8:01pm lidocaine 0.04 mg/mg topical gel (20 sources) Antiarrhythmic, Amide Local Anesthetic Start: 04-07-2019 End: 09-16-2019 Lidocaine 4 % gel Discontinued 1 NMA TOPICAL 2 to 4 times per day as needed for pain 30 0 April 07, 2019 12:00am September 16, 2019 12:39pm meloxicam 7.5 mg oral tablet (20 sources) Nonsteroidal Anti-inflammatory Drug Start: 05-02-2018 End: 10-26-2018 take 1 tablet by mouth once daily Meloxicam 7.5 mg tablet Discontinued 7.5 mg PO DAILY May 02, 2018 12:00am October 26, 2018 3:14pm Start: 02-11-2017 meloxicam (MOB IC) 15 MG tablet metFORMIN hydrochloride 500 mg oral tablet (9 sources) Biguanide Start: 11-04-2024 End: 01-12-2025 take 1 tablet by mouth once daily Metformin 500 mg tablet Discontinued 500 mg PO daily 30 November 04, 2024 12:00am January 12, 2025 8:34am progesterone 200 mg oral capsule (12 sources) Progesterone Start: 05-17-2024 End: 10-12-2024 Progesterone Micronized (Prometrium) 200 mg capsule Discontinued 200 mg VAGINAL AT BEDTIME 30 09 10May 17, 2024 1:00am October 12, 2024 11:00am continue through 14 weeks promethazine hydrochloride 12.5 mg oral tablet (20 sources) Phenothiazine Start: 12-05-2021 End: 04-21-2022 take 1 tablet by mouth every six hours as needed for nausea and vomiting Promethazine 12.5 mg tablet Discontinued 12.5 mg PO EVERY 6 HOURS as needed for nausea and vomiting 90 4 December 05, 2021 12:00am April 21, 2022 10:46am triamcinolone acetonide 1 mg/ml topical cream (20 sources) Corticosteroid Start: 05-02-2018 End: 10-26-2018 Triamcinolone Acetonide 0.1 % cream Discontinued 1 NMA TOPICAL TWICE A DAY 30 0 May 02, 2018 12:00am October 26, 2018 3:14pm valACYclovir 1000 mg oral tablet (20 sources) Herpesvirus Nucleoside Analog DNA Polymerase Inhibitor, Herpes Simplex Virus Nucleoside Analog DNA Polymerase Inhibitor, Herpes Zoster Virus Nucleoside Analog DNA Polymerase Inhibitor Start: 04-07-2019 End: 04-18-2019 Valacyclovir (Valtrex) 1 gram tablet Discontinued 1000 mg PO TWICE A DAY 20 10 April 07, 2019 12:00am April 16, 2019 12:00am April 18, 2019 12:08am initial outbreak Problems Active Problems Problem Classification Problem Date Documented Date Episodic/Chronic Bacterial infection; unspecified site (7 sources) Bacteria present; Translations: [Streptococcus, group B, as the cause of diseases classified elsewhere] Onset: 01-06-2001-02-2025 Episodic Comment on above: treat in labor Cancer of cervix (20 sources) Atypical squamous cells of undetermined significance on cervical Papanicolaou smear; Translations: [Atypical squamous cells of undetermined significance on cytologic smear of cervix (ASC-US)] Onset: 01-06-20 Episodic Comment on above: repeat pap 3 yrs, 2023 Neg pap/Neg HPV Contraceptive and procreative management (16 sources) Patient encounter status; Translations: [Encounter for other general counseling and advice on procreation] 09-10-2023 Episodic Diabetes or abnormal glucose tolerance complicating ; childbirth; or the puerperium (20 sources) Abnormal glucose level; Translations: [Abnormal glucose complicating ] Onset: 11-03-1910-26-2024 Episodic Comment on above: 3 hour GTT test 4 times daily diet controlled, [facility] 36 weeks. delivery by 40 Hemorrhage during ; abruptio placenta; placenta previa (20 sources) Bleeding from female genital tract during ; Translations: [Antepartum hemorrhage, unspecified, unspecified trimester] Episodic Comment on above: 09/21/19- small 4mm s ubchorionic bleed. viable IUP seen Immunizations and screening for infectious disease (12 sources) Autoantibody titer positive; Translations: [Other specified [...] above: PRR , GERMAN 5, [place], [place] PRR GERMAN 07/13/22 girl [place] [facility] [place] PRR (awaiting GCC), GERMAN 08/08/24, [facility] [place], [place], [place] Other complications of (13 sources) Nausea and vomiting; Translations: [Vomiting of , unspecified] 02-24-2022 Episodic Other complications of (20 sources) Group B Streptococcus carrier; Translations: [Streptococcus B carrier state complicating ] 07-16-2022 Episodic Comment on above: PCN in Labor Other complications of (20 sources) Thyroid disease in mother complicating , childbirth AND/OR puerperium; Translations: [Endocrine, nutritional and metabolic diseases complicating , unspecified trimester] 08-20-2022 Episodic Comment on above: endo referralcont on levo 25mcg, refill sent today Other complications of (20 sources) Vomiting of , unspecified; Translations: [Unspecified [...] other high-risk ] Episodic Other complications of (12 sources) Missed miscarriage; Translations: [Missed ] 06-03-2024 Episodic Other complications of (20 sources) H/O: miscarriage; Translations: [Supervision of with other poor reproductive or obstetric history, unspecified trimester] 01-12-2024 Episodic Other complications of (1 source) Supervision of high risk , unspecified, second trimester; Translations: [Supervision of high risk , unspecified, second trimester] Onset: 01-06-20 Episodic Other female genital disorders (20 sources) Recurrent loss; 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 no regional anesthesia. 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-06-20 Chronic Polyhydramnios and other problems of amniotic cavity (12 sources) Spontaneous rupture of membranes 07-16-2022 Episodic Comment on above: 1730, clear fluid Residual codes; unclassified (20 sources) Hereditary disorder of endocrine system; Translations: [Genetic susceptibility to other disease] 06-03-2024 Episodic Comment on above: 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, 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 Residual codes; unclassified (1 source) 37 weeks gestation of ; Translations: [37 weeks gestation of ] Onset: 01-06-20 Episodic Residual codes; unclassified (1 source) 36 weeks gestation of ; Translations: [36 weeks gestation of ] Onset: 12-30-19 Episodic Residual codes; unclassified (1 source) 35 weeks gestation of ; Translations: [35 weeks gestation of ] Onset: 12-20-19 Episodic Residual codes; unclassified (1 source) 32 weeks gestation of ; Translations: [32 weeks gestation of ] Onset: 11-26-19 Episodic Spontaneous (16 sources) Miscarriage; Translations: [Complete or unspecified spontaneous without complication] 08-03-2023 Episodic Comment on above: watch HCG level unti l negative level. Thyroid disorders (20 sources) Thyroiditis; Translations: [Thyroiditis, unspecified] Onset: 01-06-20 25 10-30-2022 Chronic Comment on above: thyroid antibodies, tsh/free t3/4 ordered nob and q trimester.Ordered today:Dr Mazariegos wanted in 8 wk Unclassified (20 sources) Abnormal coagulation profile; Translations: [Cancer cervix screening status] Onset: 01-20-20 17 09-24-2023 Episodic Comment on above: pap obtained today. Unclassified (1 source) Unknown / UNK(Unknown) Onset: 04-23-20 Unclassified (20 sources) Marginal insertion of umbilical [...] Translations: [Supervision of unspecified high-risk ] Onset: 5 Episodic Other connective tissue disease (1 source) Hypermobility syndrome; 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] Onset: 7 Episodic Other and delivery including normal (20 sources) ; Translations: [Encounter for supervision of normal , unspecified, unspecified trimester] Onset: 5 Episodic Comment on above: A/P: normal 6 weeks postpartumadjusting to life with . has support, moods stable. PP depression s/sx reviewedno further restrictions on activities. may resume sexual intercourse. reviewed risk and benefits of contraception and has chosen condoms for control management.RTO for annual exam or as needed for VAMP MARKER care. SROM/IAL at term. un medicated. girl:Annabelle [...] anatomy reviewed. Residual codes; unclassified (1 source) 25 weeks gestation of ; Translations: [25 weeks gestation of ] Onset: 5 Episodic Residual codes; unclassified (1 source) 24 weeks gestation of ; Translations: [24 weeks gestation of ] Onset: 5 Episodic Residual codes; unclassified (1 source) 22 weeks gestation of ; Translations: [22 weeks gestation of ] Onset: 5 Episodic Residual codes; unclassified (1 source) 13 weeks gestation of ; Translations: [13 weeks gestation of ] Onset: 5 Episodic Residual codes; unclassified (1 source) 10 weeks gestation of ; Translations: [10 weeks gestation of ] Onset: 4 Episodic Unclassified (1 source) Menstrual Problem Onset: 7 Unclassified (8 sources) Spontaneous rupture of membranes; Translations: [Spontaneous rupture of amniotic membranes] Results Test Name Value Interpretation Reference Range Facility [facility] Office Visit Reporton 01-12-2025 [facility] Office Visit Report [facility] [address], [address] [place] [address] OFFICE VISIT Date of Service: 01/12/25 MR#: [id number] Acct: [id number] Name: CECY GALLEGOS Rep #: [id number] : 1995 Provider: Dr. 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 Is patient in pain?: No Allergies banana Allergy (Mild, Verified 01/12/25 08:30) RASH Latex, Natural Rubber Allergy (Mild, Verified 01/12/25 08:30) Rash Medications ???Medication ???Instructions ???Recorded ???Confirmed ???Type vitamin#30 30 mg iron-10 1 cap PO DAILY 04/07/19 01/12/25 History mg iron-folic acid 1 mg-omg3 capsule aspirin 81 mg tablet,delayed 81 mg PO DAILY 12/22/23 01/12/25 H istory release (Adult Aspirin Regimen) blood sugar diagnostic (Blood #120 ea 10/28/24 01/12/25 Rx Glucose Test strips) blood-glucose meter #1 ea 10/28/24 01/12/25 Rx lancets 30 gauge (Droplet Lancets) #200 ea 10/28/24 01/12/25 Rx levothyroxine 50 mcg tablet 50 mcg PO DAILY #90 tabs 12/06/24 01/12/25 Rx Last Menstrual Period: 04/15/24 Zika: Zika [...] , BLOOD CLOT BLOOD CLOT Social History (Updated 01/12/25 @ 08:35 by Caroline Graham) adopted: No household members: family housing: house [...] 1-2 times per week duration: 15-30 minutes/day femi/tenriism: Pentecostalism seatbelt use: always do you feel safe at home: Yes additional social history: [place] History 7 Elective abortions Hx Para 2 [...] live - full term 6# Male none [facility] Alexia hayden [place] 07/10/22 Annabelle Rouse 39 live - full term 7#11oz Female none [facility] Guido [place] 01/11/24 spontaneous SM Delivery Date: 04/29/20 Last Updated by: Su MULLINS Delivery Date: 07/10/22 Last Updated by: Su MULLINS IOL Delivery Date: 01/11/24 Last Updated by: Keira Chen RN D C HPI 39 wk ob Details: CECY GALLEGOS is a 29 year old who presents for routine OB visit. OB Visit GERMAN Calculator Estimated Delivery Date Method Current WG Current Estimate 01/20/25 LMP (Certain) 38w 6d Expected Delivery Route/Plan Labor Preferences- CB/BF classes: [] labor support person: [] labor intervention preferences: [] pain management options preferred: [] cut cord/dad catch: [] : [] PP control planned: [] discussed possible routes of delivery and associated risks: [] special requests: [] Specific Issue/Plans Covid status: [] Flu vaccine: [] Tdap vaccine: [] Rhogam: [] LARC form signed: [] Problem li (more content not included)... Normal [facility] Laboratory - Chemistry and C hemistry - challengeOrdered By: Pam Koo on 01-05-2025 Glucose Ql (U) Negative [facility] - UrinalysisOrder ed By: Pam Koo on 01-05-2025 Protein Ql (U) Negative [facility] Office Visit Reporton 01-05-2025 [facility] Visit Report [facility] [address], [address] [place] [address] OFFICE VISIT Date of Service: 01/05/25 MR#: [id number] Acct: [id number] Name: CECY GALELGOS Rep #: [id number] : 1995 Provider: Dr. 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 Is patient in pain?: No Feel stressed/tense/nervous/an xious/difficulty sleeping: not at all Allergies banana Allergy (Mild, Verified 01/05/25 11:35) RASH Latex, Natural Rubber Allergy (Mild, Verified 01/05/25 11:35) Rash Medications ???Medication ???Instructions ???Recorded ???Confirmed ???Type vitamin#30 30 mg iron-10 1 cap PO DAILY 04/07/19 01/05/25 History mg iron-folic acid 1 mg-omg3 capsule aspirin 81 mg tablet,delayed 81 mg PO DAILY 12/22/23 01/05/25 H istory release (Adult Aspirin Regimen) blood sugar diagnostic (Blood #120 ea 10/28/24 01/05/25 Rx Glucose Test strips) blood-glucose meter #1 ea 10/28/24 01/05/25 Rx lancets 30 gauge (Droplet Lancets) #200 ea 10/28/24 01/05/25 Rx metformin 500 mg tablet 500 mg PO QDAY #30 tabs 11/04/24 0 01/05/25 Rx levothyroxine 50 mcg tablet 50 mcg PO DAILY #90 tabs 12/06/24 01/05/25 Rx Last Menstrual Period: 04/15/24 Zika: Zika [...] 1-2 times per week duration: 15-30 minutes/day femi/tenriism: Pentecostalism seatbelt use: always do you feel safe at home: Yes 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 Alexia hayden [place] 07/10/22 Annabelle Padma 39 live - full term 7#11oz Female none [facility] Hay [place] 01/11/24 spontaneous SM Delivery Date: 04/29/20 Last Updated by: Su MULLINS Delivery Date: 07/10/22 Last Updated by: Su MULLINS IOL Delivery Date: 01/11/24 Last Updated by: Keira Chen RN D C HPI 38 WK ob *only SM/LC Details: CECY GALLEGOS is a 29 year old who presents for routine OB visit. OB Visit GERMAN Calculator Estimated Delivery Date Method Current WG Current Estimate 01/20/25 LMP (Certain) 37w 6d Expected Delivery Route/Plan Labor Preferences- CB/BF classes: [] labor support person: [] labor intervention preferences: [] pain management options preferred: [] cut cord/dad catch: [] : [] P (more content not included)... Normal [facility] Rule out Beta Strep (Grp. B) on 01-02-2025 POLO Streptococcus agalac tiae (B) Amount Growth Growth Streptococcus agalactiae (B): REACTION Ampicillin Islt LUL <=0.25 cefTRIAXone Islt LUL <=0.12 S Clindamycin Islt LUL >=1 R Clindamycin.induced Susc Islt NEG Linezolid Islt LUL <=2 S Vancomycin Islt LUL 0.5 S Normal [facility] Comment on above: Performed By: #### L 100.0100, L501.9985, L500.4050, L500.4100 #### [facility] Laboratory [address] [place], [address] Laboratory - Chemistry and C hemistry - challengeOrdered By: Reshma Driscoll on 12-29-2024 Glucose Ql (U) Negative [facility] Laboratory - UrinalysisOrder ed By: Reshma Driscoll on 12-29-2024 Protein Ql (U) Negative [facility] Visit Reporton 12-29-2024 [facility] Visit Report [facility]'s [address], [address] [place] [address] OFFICE VISIT Date of Service: 12/29/24 MR#: [id number] Acct: [id number] Name: CECY GALLEGOS Rep #: [id number] : 1995 Provider: CARON Wilson ams Age/Sex: 29/F Location: [facility] Status: Signed Intake Vital Signs 11/16/24 09:19 12/19/24 14:13 12/29/24 15:32 12/29/24 15:36 Height 5 ft 3 in 5 ft 3 in 5 ft 3 in 5 ft 3 in Weight: 157 lb 8 oz BMI 27.8 BP 121/69 H Intake Visit Reasons: 37 wk ob Chief Complaint: 37 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 Is patient in pain?: No Allergies banana Allergy (Mild, Verified 12/29/24 15:31) RASH Latex, Natural Rubber Allergy (Mild, Verified 12/29/24 15:31) Rash Medications ???Medication ???Instructions ???Recorded ???Confirmed ???Type vitamin#30 30 mg iron-10 1 cap PO DAILY 04/07/19 12/29/24 History mg iron-folic acid 1 mg-omg3 capsule aspirin 81 mg tablet,delayed 81 mg PO DAILY 12/22/23 12/29/24 H istory release (Adult Aspirin Regimen) blood sugar diagnostic (Blood #120 ea 10/28/24 12/29/24 Rx Glucose Test strips) blood-glucose meter #1 ea 10/28/24 12/29/24 Rx lancets 30 gauge (Droplet Lancets) #200 ea 10/28/24 12/29/24 Rx metformin 500 mg tablet 500 mg PO QDAY #30 tabs 11/04/24 0 12/29/24 Rx levothyroxine 50 mcg tablet 50 mcg PO DAILY #90 tabs 12/06/24 12/29/24 Rx Last Menstrual Period: 04/15/24 Zika: Zika [...] 1-2 times per week duration: 15-30 minutes/day femi/tenriism: Pentecostalism seatbelt use: always do you feel safe at home: Yes 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 Alexia hayden [place] 07/10/22 Annabellephoebe CardPadma 39 live - full term 7#11oz Female none [facility] Hay [place] 01/11/24 spontaneous SM Delivery Date: 04/29/20 Last Updated by: Su MULLINS Delivery Date: 07/10/22 Last Updated by: Su MULLINS IOL Delivery Date: 01/11/24 Last Updated by: GELY Boykin C HPI 37 wk ob Details: CECY GALLEGSO is a 29 year old who presents for routine OB visit. OB Visit GERMAN Calculator Estimated Delivery Date Method Current WG Current Estimate 01/20/25 LMP (Certain) 36w 6d Expected Delivery Route/Plan Labor Preferences- CB/BF classes: [] labor support person: [] labor intervention preferences: [] pain management options preferred: [] cut cord/dad catch: [] : [] PP control planned: [] discussed possible routes of delivery and associated risk (more content not included)... Normal [facility] Screening beta-hemolytic Str eptococcus cultureOrdered By: Reshma Driscoll on 12-29-2024 Beta-hemolytic Streptococcus culture Streptococcus agalactiae (B) Abnormal [facility] OB Limited With Biometricson 12-23-2024 OB Limited With Biometrics [facility] Imaging Services [address] [place], [place] [address] OB Limited With Biometrics MR#: [id number] Acct: [id number] Name: CECY GALLEGOS Rep #: [id number] : 1995 F 29 From: Lenard jorgensen MD PCP: Farzaneh Meraz DO Status: REG CLI Study: OB Limited With Biometrics Date of Exam: 12/23 Exam# [id number] Ordering Dr: Justina Guido CNM PROCEDURE: OB LIMITED WITH BIOMETRICS 12/23/2024 REASON FOR EXAM: 36 WK GROWTH SCAN TECHNIQUE: High resolution obstetric ultrasound performed using a 2D transducer. Standard views obtained, including biometry, anatomy survey, and Doppler studies. COMPARISON: Prior study dated September 02, 2024. FINDINGS Number: 1 Position: Vertex Placental Position: Anterior Placental Abnormalities: No evidence of previa. DIMENSIONS: Biparietal Diameter: 8.8 cm: 35 weeks and 4 days: 46 percentile/ Head Circumference: 32.28 cm: 36 weeks and 3 days: 30 percentile/ Abdominal Circumference: 32.82 cm: 36 weeks and 5 days: 79 percentile/ Femur Length: 6.85 cm: 35 weeks and 1 day: 24 percentile. ESTIMATED WEIGHT: 2884 g plus/-433 g ESTIMATED WEIGHT PERCENTILE (24+ weeks): 58 ESTIMATED GESTATIONAL AGE: Baseline: 36 weeks and 0 days By Ultrasound: 36 weeks and 1 day ESTIMATED DATE OF DELIVERY: Baseline: January 20, 2025 By Ultrasound: January 19, 2025 BIOPHYSICAL ASSESSMENT: Amniotic Fluid Volume: 3.5 cm Amniotic Fluid Index: 10.3 (8-24 cm normal range) Cardiac Motion: 147 beats per minute (average) Trunk and Limb Motion: Present. MATERNAL ANATOMY: Adnexa: Neither maternal ovary is successfully identified. Cervical Length (if measured): US/OB Limited With Biometrics IMPRESSION: Single live intrauterine gestation with a mean gestational age of 36 weeks and 1 day. Reading Location: [facility] CC: CARON Guido; Farzaneh Meraz DO Licensing Specialist: Signed Normal [facility] Laboratory - Chemistry and C hemistry - challengeOrdered By: Keshia Roger on 12-19-2024 Glucose Ql (U) Negative [facility] Laboratory - UrinalysisOrder ed By: Keshia Roger on 12-19-2024 Protein Ql (U) Negative [facility] Visit Reporton 12-19-2024 [facility] Visit Report [facility]'s [address], [address] [place] [address] OFFICE VISIT Date of Service: 12/19/24 MR#: [id number] Acct: [id number] Name: CECY GALLEGOS Rep #: [id number] : 1995 Provider: Dr. 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 Date Name GA/Weeks Outcome Route Bth Weight Gen Labor Lgth Anesthesia Del Locatn Provider FOB Unknown 03/2019 SAB spontaneous Unknown 07/2021 chemical Unknown 08/03/2023 miscarriage 6 spontaneous 04/29/20 Angel Luis 39 live - full term 6# Male none [facility] Alexia hayden [place] 07/10/22 Annabelle Rouse 39 live - full term 7#11oz Female none [facility] Hay [place] 01/11/24 spontaneous SM Delivery Date: 04/29/20 Last Updated by: Su MULLINS Delivery Date: 07/10/22 Last Updated by: Su MULLINS IOL Delivery Date: 01/11/24 Last Updated by: GELY Boykin C HPI 36 wk ob Details: CECY [...] special requests: (more content not included)... Normal [facility] T4 Free Directon 12-19-2024 T4 FREE DIRECT 0.80 ng/dL Normal 0.76-1.46 [facility] Comment on above: Performed By: #### L 506.0400, L501.9520 #### [facility] Laboratory [facility] [place], [address] T4 freeOrdered By: Moises Mazariegos on 12-19-2024 Free T4 [Mass/Vol] 0.80 ng/dL 0.76-1.46 [facility] TSH DL <= 0.005 mIU/L QnOrde red By: Moises Mazariegos on 12-19-2024 TSH Qn 1.400 uIU/mL 0.300-4.200 [facility] Thyroid Stim Hormone (TSH)on 12-19-2024 TSH 1.400 uIU/mL Normal 0.300-4.200 [facility] Comment on above: Performed By: #### L 506.0400, L501.9520 #### [facility] [address] [place], [address] Laboratory - Chemistry and C hemistry - challengeOrdered By: Justina Guido on 12-09-2024 Glucose Ql (U) Negative [facility] Laboratory - UrinalysisOrder ed By: Justina Guido on 12-09-2024 Protein Ql (U) Negative [facility] Visit Reporton 12-09-2024 [facility] Visit Report [facility]'s [address], [address] [place] [address] OFFICE VISIT Date of Service: 12/09/24 MR#: [id number] Acct: [id number] Name: CECY GALLEGOS Rep #: [id number] : 1995 Provider: CARON gomez Age/Sex: 29/F Location: [facility] Status: Signed Intake Vital Signs 06/29/24 10:20 11/25/24 10:04 12/09/24 10:07 12/09/24 10:07 Height 5 ft 3 in 5 ft 3 in 5 ft 3 in 5 ft 3 in Weight: 152 lb BMI 26.9 BP 113/70 Intake Visit Reasons: 34 WK 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 Alexia hayden [place] 07/10/22 Annabelle Rouse 39 live - full term 7#11oz Female none [facility] Hay [place] 01/11/24 spontaneous SM Delivery Date: 04/29/20 Last Updated by: Su MULLINS Delivery Date: 07/10/22 Last Updated by: Su MULLINS IOL Delivery Date: 01/11/24 Last Updated by: Keira Chen RN D C HPI 34 WK OB Details: CECY [...] [] special (more content not included)... Normal [facility] Laboratory - Chemistry and C hemistry - challengeOrdered By: Pam Koo on 11-25-2024 Glucose Ql (U) Negative [facility] Laboratory - UrinalysisOrder ed By: Pam Koo on 11-25-2024 Protein Ql (U) Trace [facility] Visit Reporton 11-25-2024 [facility] Office Visit Report [facility] [address], [address] [place] [address] OFFICE VISIT Date of Service: 11/25/24 MR#: [id number] Acct: [id number] Name: CECY GALLEGOS Rep #: [id number] : 1995 Provider: Dr. 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 Alexia hayden [place] 07/10/22 Annabellephoebe CardPadma 39 live - full term 7#11oz Female none [facility] Hay [place] 01/11/24 spontaneous SM Delivery Date: 04/29/20 Last [...] [] Pre (more content not included)... Normal [facility] Laboratory - Chemistry and C hemistry - challengeOrdered By: Pam Koo on 11-16-2024 Glucose Ql (U) Negative [facility] Laboratory - UrinalysisOrder ed By: Pam Koo on 11-16-2024 Protein Ql (U) Negative [facility] Visit Reporton 11-16-2024 [facility] Visit Report [facility]'s [address], [address] [place] [address] OFFICE VISIT Date of Service: 11/16/24 MR#: [id number] Acct: [id number] Name: CECY GALLEGOS Rep #: [id number] : 1995 Provider: Dr. 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 Alexia hayden [place] 07/10/22 Annabelle Rouse 39 live - full term 7#11oz Female none [facility] Hay [place] 01/11/24 spontaneous SM Delivery Date: 04/29/20 Last Updated by: Su MULLINS Delivery Date: 07/10/22 Last Updated by: Su MULLINS IOL Delivery Date: 01/11/24 Last Updated by: GELY Boykin C HPI 30 WK OB Details: CECY [...] risks: [] (more content not included)... Normal [facility] Endocrinology Visit Reporton 11-04-2024 Endocrinology Visit Report [facility] [address] [place] [address] [address] [place] [address] OFFICE VISIT Date of Service: 11/04/24 MR#: [id number] Acct: [id number] Name: CECY GALLEGOS Rep #: [id number] : 1995 Provider: Mirela Amaya Age/Sex: 29/F [place] [facility] [place]: Signed Intake Vital Signs 11/06/23 15:37 10/26/24 10:28 11/04/24 15:31 Height 5 ft 3 in 5 ft 3 in 5 ft 3 in Weight: 150 lb BMI 26.5 BP 107/70 Blood Pressure Location Lt brachial Position Sitting Pulse 83 Pulse Source Monitor Pulse Oximetry (%) 97 Oxygen Delivery Method room air Intake Visit Reasons: 1 Y FU Chief Complaint: Thyroid, GDM 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 Normal [facility] Gestational GTT 3HR 100gon 0 10-28-2024 3HR GTT- GEST. High [facility] Comment on above: Order Comment: Y Result Comment: FAST ING 98 Col: 10/28/24 0757 GLUCOSE TOLERANCE TEST FOR Reference Interval GESTATIONAL DIABETES Fasting <105 mg/dL 1 hour <190 mg/dl 2 hour <165 mg/dl 3 hour <145 mg/dl 1 HR GLU 176 Col: 10/28/24 0927 2 HR GLU 182 H Col: 10/28/24 1026 3 HR GLU 73 Col: 10/28/24 1130 Performed By: #### L 100.0100, L501.9985, L500.4050, L500.4100 #### [facility] Laboratory [address] [place], [address] Glucose tolerance 3 hours ge stational panelOrdered By: Pam Koo on 10-28-2024 Gestational Glucose Tolerance Test See comment [facility] Comment on above: FASTING 98 Col: 10/11 [...] tolerance 3 hours gestational panel See comment [facility] Comment on above: FASTING 98 Col: 10/11 [...] Auto (Unsp spec) [#/Vol] 1.16 10*3/uL 0.83-4.51 [facility] Absolute neutrophil countOrd ered By: Justina Guido on 10-26-2024 Neutrophils (Bld) [#/Vol] 4.8 10*3/uL 2.0-7.7 [facility] Automated lymphocyte count a s percentage of total leukocytesOrdered By: Justina Guido on 10-26-2024 Lymphocytes/100 WBC Auto (Unsp spec) 16.9 % Low 19-41 [facility] Basophil percentageOrdered B y: Justina Guido on 10-26-2024 Basophils/100 WBC (Bld) 0.7 % 0-1 [facility] CBC W/Diff, Automatedon 10-11 Absolute Lymph 1.16 X10 3/uL Normal 0.83-4.51 [facility] Comment on above: Performed By: #### L 100.0100 #### [facility] [address] [place], [address] Absolute Neut 4.8 X10 3/uL Normal 2.0-7.7 [facility] Comment on above: Performed By: #### L 100.0100 #### [facility] [address] [place], [address] Basophils/100 WBC (Bld) 0.7 % Normal 0-1 [facility] Comment on above: Performed By: #### L 100.0100 #### [facility] [address] [place], [address] Eosinophils/100 WBC (Bld) 5.1 % High 0-5 [facility] Comment on above: Performed By: #### L 100.0100 #### [facility] [address] [place], [address] Erythrocyte distribution width (RBC) [Ratio] 12.1 % Normal 11.6-14.6 [facility] Comment on above: Performed By: #### L 100.0100 #### [facility] [address] [place], [address] Hematocrit (Bld) [Volume fraction] 33.7 % Low 37-47 [facility] Comment on above: Performed By: #### L 100.0100 #### [facility] [address] [place], [address] Hemoglobin (Bld) [Mass/Vol] 11.7 g/dL Low 12.0-15.0 [facility] Comment on above: Performed By: #### L 100.0100 #### [facility] [address] [place], [address] IG% 1.200 High 0.0-0.9 [facility] Comment on above: Result Comment: IG% - Immature Granulocytes (promyelocytes, myelocytes and metamyelocytes) > 1% indicates that a LEFT SHIFT is Present. Performed By: #### L 100.0100 #### [facility] Laboratory [address] [place], [place] [address]. [place], [address] Lymphocytes/100 WBC (Bld) 16.9 % Low 19-41 [facility] Comment on above: Performed By: #### L 100.0100 #### [facility] Laboratory [facility] [place], [address] MCH (RBC) [Entitic mass] 31.2 pg Normal 27.0-32.0 [facility] Comment on above: Performed By: #### L 100.0100 #### [facility] [address] [place], [address] MCHC (RBC) [Mass/Vol] 34.7 g/dL Normal 32-36 [facility] Comment on above: Performed By: #### L 100.0100 #### [facility] [address] [place], [address] MCV (RBC) [Entitic vol] 89.9 fL Normal 81-99 [facility] Comment on above: Performed By: #### L 100.0100 #### [facility] [address] [place], [address] Monocytes/100 WBC (Bld) 6.1 % Normal 0-10 [facility] Comment on above: Performed By: #### L 100.0100 #### [facility] [address] [place], [address] Neutrophils/100 WBC (Bld) 70.0 % Normal 47-70 [facility] Comment on above: Performed By: #### L 100.0100 #### [facility] [address] [place], [address] Nucleated RBC (Bld) [#/Vol] 0 10*3/uL Normal 0-5 [facility] Comment on above: Performed By: #### L 100.0100 #### [facility] [address] [place], [address] Platelet mean volume (Bld) [Entitic vol] 9.3 fL Normal 6.2-12.0 [facility] Comment on above: Performed By: #### L 100.0100 #### [facility] [address] [place], [address] Platelets (Bld) [#/Vol] 232 10*3/uL Normal 150-450 [facility] Comment on above: Performed By: #### L 100.0100 #### [facility] [address] [place], [address] RBC (Bld) [#/Vol] 3.75 10*6/uL Low 4.2-5.4 [facility] Comment on above: Performed By: #### L 100.0100 #### [facility] [address] [place], [address] RDW SD 39.3 fl Normal 35.1-43.9 [facility] Comment on above: Performed By: #### L 100.0100 #### [facility] [address] [place], [address] WBC (Bld) [#/Vol] 6.9 10*3/uL Normal 4.4-11.0 [facility] Comment on above: Performed By: #### L 100.0100 #### [facility] [address] [place], [place], [address] Eosinophil percentageOrdered By: Justina Guido on 10-26-2024 Eosinophils/100 WBC (Bld) 5.1 % High 0-5 [facility] Erythrocyte distribution wid th (RBC) [Ratio]Ordered By: Justina Guido on 10-26-2024 Erythrocyte distribution width (RBC) [Entitic vol] 39.3 fL 35.1-43.9 [facility] Erythrocyte distribution wid th ratioOrdered By: Justinajordan Guido on 10-26-2024 Erythrocyte distribution width (RBC) [Ratio] 12.1 % 11.6-14.6 [facility] Erythrocyte distribution wid th standard deviationOrdered By: Justina Hay on 10-26-2024 Erythrocyte distribution width (RBC) [Ratio] 39.3 fl 35.1-43.9 [facility] Glucose Challenge Gest 1H 50 reddy 10-26-2024 GLU GEST 50g 1H 152 mg/dL High 70-140 [facility] Comment on above: Performed By: #### L 100.0100, L501.9985, L500.4050, L500.4100 #### [facility] [address] [place], [place], [address] Glucose measurement at 2 álvaro rs post-dose gestational glucose tolerance testOrdered By: Pam Koo on 10-26-2024 Glucose [Mass/Vol] 152 mg/dL High 70-140 [facility] HIVon 10-26-2024 HIV Non-Reactive Normal Nonreactive [facility] Comment on above: Result Comment: Non- Reactive Reactive Repeatedly reactive samples must be confirmed according to CDC recommended confirmatory algorithms. The subresults for either HIVAG or AHIV can be used as an aid in the selection of the confirmation algorithm for reactive samples. Send out specimens with Reactive results to [facility] for confirmation. Order the HIV antibody detection and differentiation: [id number] Performed By: #### L 100.0100, L501.9985, L500.4050, L500.4100 #### [facility] [address] [place], [address] Hematocrit Auto (Bld) [Volum e fraction]Ordered By: Justina Guido on 10-26-2024 Hematocrit (Bld) [Volume fraction] 33.7 % Low 37-47 [facility] Hemoglobin measurementOrdere d By: Justina Guido on 10-26-2024 Hemoglobin (Bld) [Mass/Vol] 11.7 g/dL Low 12.0-15.0 [facility] Immature granulocytes/100 WB C Auto (Bld)Ordered By: Justina Guido on 10-26-2024 Immature granulocytes/100 WBC (Bld) 1.200 % High 0.0-0.9 [facility] Comment on above: IG% - Immature Granu locytes (promyelocytes, myelocytes and metamyelocytes) > 1% indicates that a LEFT SHIFT is Present. Laboratory - Chemistry and C hemistry - challengeOrdered By: Pam Koo on 10-26-2024 Glucose Ql (U) Negative [facility] Laboratory - UrinalysisOrder ed By: Pam Koo on 10-26-2024 Protein Ql (U) Negative [facility] Lymphocytes Auto (Unsp spec) [#/Vol]Ordered By: Justina Guido on 10-26-2024 Lymphocytes (Bld) [#/Vol] 1.16 10*3/uL 0.83-4.51 [facility] Lymphocytes/100 WBC Auto (Un sp spec)Ordered By: Justina Guido on 10-26-2024 Lymphocytes/100 WBC (Bld) 16.9 % Low 19-41 [facility] MCV (mean corpuscular volume ) determinationOrdered By: Justina Guido on 10-26-2024 MCV (RBC) [Entitic vol] 89.9 fL 81-99 [facility] Mean corpuscular hemoglobin (MCH) determinationOrdered By: Justina Guido on 10-26-2024 MCH (RBC) [Entitic mass] 31.2 pg 27.0-32.0 [facility] Mean corpuscular hemoglobin concentration (MCHC) determinationOrdered By: Justina Guido on 10-26-2024 MCHC (RBC) [Mass/Vol] 34.7 g/dL 32-36 [facility] Mean platelet volume determi nationOrdered By: Justinagwen Guido on 10-26-2024 Platelet mean volume (Bld) [Entitic vol] 9.3 fL 6.2-12.0 [facility] Monocyte percentageOrdered B y: Justina Guido on 10-26-2024 Monocytes/100 WBC (Bld) 6.1 % 0-10 [facility] Neutrophil percentageOrdered By: Justina Guido on 10-26-2024 Neutrophils/100 WBC (Bld) 70.0 % 47-70 [facility] No Panel InformationOrdered By: Pam Koo on 10-26-2024 HIV (1&2) Antibody Non-Reactive Nonreactive [facility] Comment on above: Non-ReactiveReactive Repeatedly reactive samples must be confirmed according to CDC recommended confirmatory algorithms. The subresults for either HIVAG or AHIV can be used as an aid in the selection of the confirmation algorithm for reactive samples.Send out specimens with Reactive results to [facility] for confirmation.Order the HIV antibody detection and differentiation: #[id number] Nucleated red blood cell per centageOrdered By: Justina Guido on 10-26-2024 Nucleated RBC/100 WBC (Bld) [Ratio] 0 % 0-5 [facility] Visit Reporton 10-26-2024 [facility] Visit Report [facility]'[address], [address] [place] [address] OFFICE VISIT Date of Service: 10/26/24 MR#: [id number] Acct: [id number] Name: CECY GALLEGOS Rep #: [id number] : 1995 Provider: Dr. 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 Alexia hayden [place] 07/10/22 Annabelle Rouse 39 live - full term 7#11oz Female none [facility] Hay [place] 01/11/24 spontaneous SM Delivery Date: 04/29/20 Last [...] Continue r (more content not included)... Normal [facility] Platelet countOrdered By: Suzan Guido on 10-26-2024 Platelets (Bld) [#/Vol] 232 10*3/uL 150-450 [facility] RBC Auto (Bld) [#/Vol]Ordere d By: Justina Guido on 10-26-2024 RBC (Bld) [#/Vol] 3.75 10*6/uL Low 4.2-5.4 [facility] Syphilis Antibodieson 2024 Syphilis Abs Non-Reactive Normal Nonreactive [facility] Comment on above: Performed By: #### L 100.0100, L501.9985, L500.4050, L500.4100 #### [facility] Laboratory [address] [place], [place], [id number] T. pallidum abOrdered By: Katherine Koo on 10-26-2024 Syphilis Total Antibody Non-Reactive Nonreactive [facility] White blood cell (WBC) count Ordered By: Justina Guido on 10-26-2024 WBC (Bld) [#/Vol] 6.9 10*3/uL 4.4-11.0 [facility] Laboratory - Chemistry and C hemistry - challengeOrdered By: Pam Koo on 10-12-2024 Glucose Ql (U) Negative [facility] Laboratory - UrinalysisOrder ed By: Pam Koo on 10-12-2024 Protein Ql (U) Negative [facility] Visit Reporton 10-12-2024 [facility] Visit Report [facility]'s [address], [address] [place] [address] OFFICE VISIT Date of Service: 10/12/24 MR#: [id number] Acct: [id number] Name: CECY GALLEGOS Rep #: [id number] : 1995 Provider: Dr. 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 Alexiadyan hayden [place] 07/10/22 Annabelle Rouse 39 live - full term 7#11oz Female none [facility] Hay [place] 01/11/24 spontaneous SM Delivery Date: 04/29/20 Last Updated by: Su MULLINS Delivery Date: 07/10/22 Last Updated by: Su MULLINS IOL Delivery Date: 01/11/24 Last Updated by: GELY Boykin C HPI 26 WK OB Details: CECY [...] and appropriate (more content not included)... Normal [facility] Laboratory - Chemistry and C hemistry - challengeOrdered By: Justina Guido on 09-30-2024 Glucose Ql (U) Negative [facility] Laboratory - UrinalysisOrder ed By: Justina Guido on 09-30-2024 Protein Ql (U) Negative [facility] Visit Reporton 09-30-2024 [facility] Visit Report [facility]'s [address], [address] [place] [address] OFFICE VISIT Date of Service: 09/30/24 MR#: [id number] Acct: [id number] Name: CECY GALLEGOS Rep #: [id number] : 1995 Provider: CARON gomez Age/Sex: 29/F Location: [facility] Status: Signed Intake Vital Signs 06/29/24 10:20 09/16/24 11:23 09/30/24 10:59 09/30/24 10:59 Height 5 ft 3 in 5 ft 3 in 5 ft 3 in 5 ft 3 in Weight: 140 lb BMI 24.7 BP 108/69 Intake Visit Reasons: 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 Alexia hayden [place] 07/10/22 Annabelle Rouse 39 live - full term 7#11oz Female none [facility] Hay [place] 01/11/24 spontaneous SM Delivery Date: 04/29/20 Last Updated by: Su MULLINS Delivery Date: 07/10/22 Last Updated by: Su MULLINS IOL Delivery Date: 01/11/24 Last Updated by: EGLY Boykin C HPI HEARTBEAT CK Details: CECY [...] list reviewe (more content not included)... Normal [facility] Laboratory - Chemistry and C hemistry - challengeOrdered By: Reshma Driscoll on 09-16-2024 Glucose Ql (U) Negative [facility] Laboratory - UrinalysisOrder ed By: Reshma Driscoll on 09-16-2024 Protein Ql (U) Negative [facility] Visit Reporton 09-16-2024 [facility] Office Visit Report [facility] [address], [address] [place] [address] OFFICE VISIT Date of Service: 09/16/24 MR#: [id number] Acct: [id number] Name: CECY GALLEGOS Rep #: [id number] : 1995 Provider: CARON Wilson ams Age/Sex: 29/F Location: [facility] Status: Signed Intake Vital Signs 06/29/24 10:20 [...] 1-2 times per week duration: 15-30 minutes/day femi/tenriism: Pentecostalism seatbelt use: always do you feel safe at home: Yes 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 Alexia hayden [place] 07/10/22 Annabellephoebe Rouse 39 live - full term 7#11oz Female none [facility] Hay [place] 01/11/24 spontaneous SM Delivery Date: 04/29/20 Last [...] for t (more content not included)... Normal [facility] Miscellaneous procedureOrder ed By: Reshma Driscoll on 09-05-2024 Miscellaneous Test Comment SEE SCANNED REPORT [facility] NATERAon 09-05-2024 JUSTO SEE SCANNED REPORT Normal [facility] Comment on above: Performed By: #### L 900.0098 #### [facility] Laboratory [facility] [place], [address] OB Anatomy w/ Transvaginalon 09-02-2024 OB Anatomy w/ Transvaginal [facility] [address] [place] [address] OB Anatomy w/ Transvaginal MR#: [id number] Acct: [id number] Name: CECY GALLEGOS Rep #: [id number] : 1995 F 29 From: Lenard jorgensen MD PCP: Farzaneh Meraz DO Status: REG CLI Study: OB Anatomy w/ Transvaginal Date of Exam: 09/02 Exam# [id number] Ordering Dr: Caroline Stern JUNIOR FINANCIAL ANALYST JUNIOR FINANCIAL ANALYST -C PROCEDURE: OB ANATOMY W/ TRANSVAGINAL REASON [...] 4 mm choroid plexus cyst. Reading Location: [facility] CC: CONNIE Stern; Farzaneh Meraz DO Licensing Specialist: Signed Normal [facility] Thyroid Peroxidase ABon 02-0 THYR PEROX AB 128 IU/mL High 0-34 [facility] Comment on above: Result Comment: Perf ormed at: CB - [facility] [address] [id number] Industrial Psychologist: Nicolas Maldonado PhD, Phone: [phone] Performed By: #### L 501.9571, L506.0400 #### [facility] Laboratory [address] [place] [address], [id number] Direct serum free thyroxine (FT4) measurementOrdered By: Caroline Stern on 08-17-2024 Free T4 [Mass/Vol] 0.94 ng/dL 0.76-1.46 [facility] Laboratory - Chemistry and C hemistry - challengeOrdered By: Caroline Stern on 08-17-2024 Glucose Ql (U) Negative [facility] Laboratory - UrinalysisOrder ed By: Caroline Stern on 08-17-2024 Protein Ql (U) Negative [facility] Office Visit Reporton 08-17-2024 [facility] Office Visit Report [facility] [address], [address] [place] [address] OFFICE VISIT Date of Service: 08/17/24 MR#: [id number] Acct: [id number] Name: CECY GALLEGOS Rep #: [id number] : 1995 Provider: CONNIE kimbrough Age/Sex: 29/F Location: [facility] Status: Signed Intake Vital Signs 06/29/24 10:20 08/01/24 13:32 08/17/24 14:58 Height 5 ft 3 in 5 ft 3 in 5 ft 3 in Weight: 133 lb 4 oz BMI 23.6 BP 110/62 Intake Visit Reasons: 18 WK OB Chief Complaint: 18 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 Alexia mitzichelita [place] 07/10/22 Annabelle Rouse 39 live - full term 7#11oz Female none [facility] Hay [place] 01/11/24 spontaneous SM Delivery Date: [...] form signed: (more content not included)... Normal [facility] Serum or plasma thyroid stim ulating hormone (TSH) measurement (units/volume)Ordered By: Caroline Stern on 08-17-2024 TSH Qn 0.806 uIU/mL 0.358-3.740 [facility] Serum or plasma thyroperoxid ase antibody assay (units/volume)Ordered By: Caroline Stern on 08-17-2024 TPO Ab Qn 128 [IU]/mL High 0-34 [facility] Comment on above: Performed at: [facility] [address] [id number] Director: Nicolas Maldonado PhD, Phone: [phone] T4 Free Directon 08-17-2024 T4 FREE DIRECT 0.94 ng/dL Normal 0.76-1.46 [facility] Comment on above: Performed By: #### L 501.9520, B119.4990 #### [facility] Laboratory [address] [place] [address], [address] TPO Ab QnOrdered By: Caroline rios on 08-17-2024 Thyroid Peroxidase Antibodies 128 IU/mL High [address] Comment on above: Performed at: [facility] [address] [id number] Director: Nicolas Maldonado PhD, Phone: [phone] TSH QnOrdered By: Caroline kimbrough on 08-17-2024 Thyroid Stimulating Hormone (TSH) 0.806 uIU/mL 0.358-3.740 [facility] Thyroid Stim Hormone (TSH)on 08-17-2024 TSH 0.806 uIU/mL Normal 0.358-3.740 [facility] Comment on above: Performed By: #### L 501.9520, L506.0400 #### [facility] Laboratory [address] [place], [address] Laboratory - Chemistry and C hemistry - challengeon 08-01-2024 Glucose Ql (U) Negative [facility] Laboratory - Urinalysison Protein Ql (U) Negative [facility] Visit Reporton 08-01-2024 [facility] Office Visit Report [facility] [address], [address] [place] [address] OFFICE VISIT Date of Service: 08/01/24 MR#: [id number] Acct: [id number] Name: CECY GALLEGOS Rep #: [id number] : 1995 Provider: CARON Wilson ams Age/Sex: 29/F Location: [facility] Status: Signed Intake Vital Signs 06/29/24 10:20 07/20/24 15:37 08/01/24 13:30 08/01/24 13:32 Height 5 ft 3 in 5 ft 3 in 5 ft 3 in 5 ft 3 in Weight: 131 lb BMI 23.2 BP 129/80 H Intake Visit Reasons: 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 Alexia hayden [place] 07/10/22 Annabelle Rouse 39 live - full term 7#11oz Female none [facility] Hay [place] 01/11/24 spontaneous SM Delivery Date: [...] Tdap v (more content not included)... Normal [facility] Laboratory - Chemistry and C hemistry - challengeon 07-20-2024 Glucose Ql (U) Negative [facility] Laboratory - Urinalysison Protein Ql (U) Negative [facility] Visit Reporton 07-20-2024 [facility] Office Visit Report [facility] [address], [address] [place] [address] OFFICE VISIT Date of Service: 07/20/24 MR#: [id number] Acct: [id number] Name: CECY GALLEGOS Rep #: [id number] : 1995 Provider: CONNIE kimbrough Age/Sex: 29/F Location: [facility] Status: Signed Intake Vital Signs 01/29/24 10:17 [...] 1-2 times per week duration: 15-30 minutes/day femi/tenriism: Pentecostalism seatbelt use: always do you feel safe at home: Yes 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 Alexia hayden [place] 07/10/22 Annabelle Rouse 39 live - full term 7#11oz Female none [facility] Guido [place] 01/11/24 spontaneous SM Delivery Date: 04/29/20 Last Updated by: Su MULLINS Delivery Date: 07/10/22 Last Updated by: Su MULLINS IOL Delivery Date: 01/11/24 Last Updated by: Keira Chen, GELY D C HPI 14 WK OB Details: CECY [...] for th (more content not included)... Normal [facility] Progress Noteon 07-01-2024 Home Office Claim Specialist Authentication Interface Message Text Maternal Medicine Consult Date of Service: 07/01/2024 Referring Provider: Keshia Perera Primary Care Provider: No primary care provider on file. Reason for Consult: Dr. Keshia Perera requests that Ccey be evaluated due to TPO Ab positive. HISTORY OF PRESENTING PROBLEM: Cecy is a 29 y.o. at 11w0d gestation. Cecy is referred for positive TPO antibodies. 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 She is currently taking 50 mcg of levothyroxine and is monitored by [employer] Moises Mazariegos MD. She has no symptoms [...] kg M Vag-Spont None N BRYSON Name: River 1 03/2019 5w0d SAB Past Medical History: [...] 0d with an GERMAN of 01/20/2025. 2. [place] rump length measurement are consistent with supplied dating. 3. Anatomic detail is extremely (more content not included)... Normal [facility] Laboratory - Chemistry and C hemistry - challengeon 06-29-2024 Glucose Ql (U) Negative [facility] Laboratory - Urinalysison Protein Ql (U) Negative [facility] Office Visit Reporton 06-29-2024 [facility] Office Visit Report [facility] [address], [address] [place] [address] OFFICE VISIT Date of Service: 06/29/24 MR#: [id number] Acct: [id number] Name: CECY GALLEGOS Rep #: [id number] : 1995 Provider: Dr. Pam hayden MD Age/Sex: 29/F Location: [facility] Status: Signed Intake Vital Signs 06/17/24 08:47 [...] : No Nurse's Note: Heart beat check [facility] Medical History (Updated 06/29/24 @ 10:[address] 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 Alexia hayden [place] 07/10/22 Annabelle Rouse 39 live - full term 7#11oz Female none [facility] Hay Cr 01/11/24 spontaneous SM Delivery Date: 04/29/20 Last Updated by: Su MULLINS Delivery Date: 07/10/22 Last Updated by: Su MULLINS IOL Delivery Date: 01/11/24 Last Updated by: Keira Chen, GELY Elder C HPI heartbeat check per Details: CECY [...] reviewed an (more content not included)... Normal [facility] Chlamydia/GC RORY aptimaon CHLAMY,NUC ACID Negative Normal Negative [facility] Comment on above: Performed By: #### L 100.0100, L501.9985, L500.4050, L500.4100 #### [facility] Laboratory [address] [place], [place], [id number] GC BY NUC ACID Negative Normal Negative [facility] Comment on above: Result Comment: Perf ormed at: =G - [facility] [address] [id number] Industrial Psychologist: Isis Aranda MD, Phone: [phone] Performed By: #### L 100.0100, L501.9985, L500.4050, L500.4100 #### [facility] [address] [place], [place], [id number] Thyroid Antibodieson 024 TG AB < 1.0 Normal 0.0-0.9 [facility] Comment on above: Result Comment: Thyr oglobulin Antibody measured by Chidi Erich Methodology It should be noted that the presence of thyroglobulin antibodies may not be pathogenic nor diagnostic, especially at very low levels. The assay key cutter has found that four percent of individuals without evidence of thyroid disease or autoimmunity will have positive TgAb levels up to 4 IU/mL. Performed at: [address] [id number] Industrial Psychologist: Nicolas Maldonado PhD, Phone: [phone] Performed By: #### L 501.9520, L506.0400 #### [facility] [address] [place], [address] THYR PEROX AB 197 IU/mL High 0-34 [facility] Comment on above: Performed By: #### L 501.9520, L506.0400 #### [facility] [address] [place], [place], [id number] Urine Cultureon 06-18-2024 URC Culture exhibits no growth. Normal [facility] Comment on above: Performed By: #### L 100.0100, L501.9985, L500.4050, L500.4100 #### [facility] Laboratory [address] [place], [place], [id number] Absolute neutrophil countOrd ered By: Justina Guido on 06-17-2024 Neutrophils (Bld) [#/Vol] 4.8 10*3/uL 2.0-7.7 [facility] Basophil percentageOrdered B y: Justina Guido on 06-17-2024 Basophils/100 WBC (Bld) 0.6 % 0-1 [facility] C. trachomatis rRNA RORY+prob e Ql (Unsp spec)Ordered By: Justina Guido on 06-17-2024 Chlamydia DNA (RORY) Negative Negative [facility] CBC W/Diff, Automatedon 12- Absolute Lymph 1.73 X10 3/uL Normal 0.83-4.51 [facility] Comment on above: Performed By: #### L 501.9520, L506.0400 #### [facility] Laboratory [address] [place], [address] Absolute Neut 4.8 X10 3/uL Normal 2.0-7.7 [facility] Comment on above: Performed By: #### L 501.9520, L506.0400 #### [facility] Laboratory [address] [place], [address] Basophils/100 WBC (Bld) 0.6 % Normal 0-1 [facility] Comment on above: Performed By: #### L 501.9520, L506.0400 #### [facility] [address] [place], [address] Eosinophils/100 WBC (Bld) 1.2 % Normal 0-5 [facility] Comment on above: Performed By: #### L 501.9520, L506.0400 #### [facility] [address] [place], [address] Erythrocyte distribution width (RBC) [Ratio] 11.8 % Normal 11.6-14.6 [facility] Comment on above: Performed By: #### L 501.9520, L506.0400 #### [facility] [address] [place], [address] Hematocrit (Bld) [Volume fraction] 37.2 % Normal 37-47 [facility] Comment on above: Performed By: #### L 501.9520, L506.0400 #### [facility] [address] [place], [address] Hemoglobin (Bld) [Mass/Vol] 13.1 g/dL Normal 12.0-15.0 [facility] Comment on above: Performed By: #### L 501.9520, L506.0400 #### [facility] [address] [place], [address] IG% 0.300 Normal 0.0-0.9 [facility] Comment on above: Result Comment: IG% - Immature Granulocytes (promyelocytes, myelocytes and metamyelocytes) > 1% indicates that a LEFT SHIFT is Present. Performed By: #### L 501.9520, L506.0400 #### [facility] [address] [place], [address] Lymphocytes/100 WBC (Bld) 24.0 % Normal 19-41 [facility] Comment on above: Performed By: #### L 501.9520, L506.0400 #### [facility] [address] [place], [address] MCH (RBC) [Entitic mass] 30.3 pg Normal 27.0-32.0 [facility] Comment on above: Performed By: #### L 501.9520, L506.0400 #### [facility] Laboratory [address] [place], [address] MCHC (RBC) [Mass/Vol] 35.2 g/dL Normal 32-36 [facility] Comment on above: Performed By: #### L 501.9520, L506.0400 #### [facility] [address] [place], [address] MCV (RBC) [Entitic vol] 86.1 fL Normal 81-99 [facility] Comment on above: Performed By: #### L 501.9520, L506.0400 #### [facility] [address] [place], [address] Monocytes/100 WBC (Bld) 7.6 % Normal 0-10 [facility] Comment on above: Performed By: #### L 501.9520, L506.0400 #### [facility] [address] [place], [address] Neutrophils/100 WBC (Bld) 66.3 % Normal 47-70 [facility] Comment on above: Performed By: #### L 501.9520, L506.0400 #### [facility] [address] [place], [address] Nucleated RBC (Bld) [#/Vol] 0 10*3/uL Normal 0-5 [facility] Comment on above: Performed By: #### L 501.9520, L506.0400 #### [facility] [address] [place], [address] Platelet mean volume (Bld) [Entitic vol] 9.2 fL Normal 6.2-12.0 [facility] Comment on above: Performed By: #### L 501.9520, L506.0400 #### [facility] [address] [place], [address] Platelets (Bld) [#/Vol] 308 10*3/uL Normal 150-450 [facility] Comment on above: Performed By: #### L 501.9520, L506.0400 #### [facility] [address] [place], [address] RBC (Bld) [#/Vol] 4.32 10*6/uL Normal 4.2-5.4 [facility] Comment on above: Performed By: #### L 501.9520, L506.0400 #### [facility] [address] [place], [address] RDW SD 37.0 fl Normal 35.1-43.9 [facility] Comment on above: Performed By: #### L 501.9520, L506.0400 #### [facility] [address] [place], [address] WBC (Bld) [#/Vol] 7.2 10*3/uL Normal 4.4-11.0 [facility] Comment on above: Performed By: #### L 501.9520, L506.0400 #### [facility] [address] [place], [address] Direct serum free thyroxine (FT4) measurementOrdered By: Justina Guido on 06-17-2024 Free T4 [Mass/Vol] 1.12 ng/dL 0.76-1.46 [facility] Eosinophil percentageOrdered By: Justina Guido on 06-17-2024 Eosinophils/100 WBC (Bld) 1.2 % 0-5 [facility] Erythrocyte distribution wid th ratioOrdered By: Justina Guido on 06-17-2024 Erythrocyte distribution width (RBC) [Ratio] 11.8 % 11.6-14.6 [facility] Erythrocyte distribution wid th standard deviationOrdered By: Justina Guido on 06-17-2024 Erythrocyte distribution width (RBC) [Entitic vol] 37.0 fL 35.1-43.9 [facility] HIV - WCHon 06-17-2024 HIV Non-Reactive Normal Nonreactive [facility] Comment on above: Order Comment: Reaso n for Exam: Performed By: #### L 100.0100, L501.9985, L500.4050, L500.4100 #### [facility] [address], [place], [id number] HIV 1+2 Ab+HIV1 p24 Ag IA Ql Ordered By: Justina Guido on 06-17-2024 HIV (1&2) Antibody Non-Reactive Nonreactive [facility] Hematocrit Auto (Bld) [Volum e fraction]Ordered By: Justina Guido on 06-17-2024 Hematocrit (Bld) [Volume fraction] 37.2 % 37-47 [facility] Hemoglobin measurementOrdere d By: Justina Guido on 06-17-2024 Hemoglobin (Bld) [Mass/Vol] 13.1 g/dL 12.0-15.0 [facility] Hepatitis B Surface Antigeno n 06-17-2024 HEP B Surf Ag Non-Reactive Normal [facility] Comment on above: Order Comment: Reaso n for Exam: Performed By: #### L 100.0100, L501.9985, L500.4050, L500.4100 #### [facility] [address] [place], [place], [id number] Hepatitis B surface antigen detectionOrdered By: Justina Guido on 06-17-2024 Hepatitis B Surface Antigen Non-Reactive Nonreactive [facility] Hepatitis C Antibodyon 06-17 Hepatitis C AB Non-Reactive Normal Nonreactive [facility] Comment on above: Order Comment: Reaso n for Exam: Result Comment: Non Reactive: < 0.8 Equivocal: >/= 0.8 to < 1.0 Reactive: >/= 1.0 The [facility] requires that a reactive/equivocal HCV antibody result be sent out for confirmation. HCV Quant by PCR testing. Performed By: #### L 100.0100, L501.9985, L500.4050, L500.4100 #### [facility] [address] [place], [address] Hepatitis C virus antibody a ssayOrdered By: Justina Guido on 06-17-2024 Hepatitis C Antibody Non-Reactive Nonreactive [facility] Comment on above: Non Reactive: < 0.8 Equivocal: >/= 0.8 to < 1.0 Reactive: >/= 1.0The [facility] requires that a reactive/equivocal HCV antibody result be sent out for confirmation. HCV Quant by PCR testing. Immature granulocytes/100 WB C Auto (Bld)Ordered By: Justina Guido on 06-17-2024 Immature granulocytes/100 WBC (Bld) 0.300 % 0.0-0.9 [facility] Comment on above: IG% - Immature Granu locytes (promyelocytes, myelocytes and metamyelocytes) > 1% indicates that a LEFT SHIFT is Present. L509.8000on 06-17-2024 Syphilis Abs Non-Reactive Normal [facility] Comment on above: Order Comment: Reaso n for Exam: Performed By: #### L 501.9520, L506.0400 #### [facility] [address] [place], [address] Lymphocytes Auto (Unsp spec) [#/Vol]Ordered By: Justina Guido on 06-17-2024 Lymphocytes (Bld) [#/Vol] 1.73 10*3/uL 0.83-4.51 [facility] Lymphocytes/100 WBC Auto (Un sp spec)Ordered By: Justina Guido on 06-17-2024 Lymphocytes/100 WBC (Bld) 24.0 % 19-41 [facility] MCV (mean corpuscular volume ) determinationOrdered By: Justina Guido on 06-17-2024 MCV (RBC) [Entitic vol] 86.1 fL 81-99 [facility] Mean corpuscular hemoglobin (MCH) determinationOrdered By: Justina Guido on 06-17-2024 MCH (RBC) [Entitic mass] 30.3 pg 27.0-32.0 [facility] Mean corpuscular hemoglobin concentration (MCHC) determinationOrdered By: Justina Guido on 06-17-2024 MCHC (RBC) [Mass/Vol] 35.2 g/dL 32-36 [facility] Mean platelet volume determi nationOrdered By: Justina Guido on 06-17-2024 Platelet mean volume (Bld) [Entitic vol] 9.2 fL 6.2-12.0 [facility] Monocyte percentageOrdered B y: Justina Guido on 06-17-2024 Monocytes/100 WBC (Bld) 7.6 % 0-10 [facility] Neisseria gonorrhoeae nuclei c acid detection by amplified probe techniqueOrdered By: Justina Guido on 06-17-2024 N. gonorrhoeae DNA RORY+probe Ql (Unsp spec) Negative Negative [facility] Comment on above: Performed at: =[address] [id number] Director: Isis Aranda MD, Phone: [phone] Neutrophil percentageOrdered By: Justina Guido on 06-17-2024 Neutrophils/100 WBC (Bld) 66.3 % 47-70 [facility] Nucleated red blood cell per centageOrdered By: Justina Guido on 06-17-2024 Nucleated RBC/100 WBC (Bld) [Ratio] 0 % 0-5 [facility] Visit Reporton 06-17-2024 [facility] Visit Report [facility]'[address], [address] [place] [address] OFFICE VISIT Date of Service: 06/17/24 MR#: [id number] Acct: [id number] Name: CECY GALLEGOS Rep #: [id number] : 1995 Provider: CARON gomez Age/Sex: 29/F [facility] Status: Signed Intake Vital Signs 01/29/24 10:17 06/17/24 08:47 Height 5 ft 3 in 5 ft 3 in Weight: 128 lb 4 oz BMI 22.7 BP 127/84 H Intake Visit Reasons: New OB, LMP 04/15, GERMAN 01/20/25 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 [facility] Alexia hayden [place] 07/10/22 Annabelle Rouse 37 live - full term 7#11oz Female none [facility] Hay Tayo 01/11/24 spontaneous SM Delivery Date: 04/29/20 Last Updated by: Su MULLINS Delivery Date: 07/10/22 Last Updated by: Su MULLINS IOL Delivery Date: 01/11/24 Last Updated by: GELY Boykin C HPI New OB, LMP 04/15, GERMAN 01/20/25 Details: CECY GALLEGOS is a [...] requests: [] (more content not included)... Normal [facility] Platelet countOrdered By: Suzan Guido on 06-17-2024 Platelets (Bld) [#/Vol] 308 10*3/uL 150-450 [facility] RBC Auto (Bld) [#/Vol]Ordere d By: Justina Guido on 06-17-2024 RBC (Bld) [#/Vol] 4.32 10*6/uL 4.2-5.4 [facility] Rubella IgGon 06-17-2024 Rubella IgG Reactive Normal Nonreactive [facility] Comment on above: Order Comment: Reaso n for Exam: Result Comment: Anti body Results Interpretation of Immune Status Non Reactive Presumed Non-Immune Equivocal Equivocal Reactive Presumed Immune Performed By: #### L 501.9520, L506.0400 #### [facility] [address] [place], [address] Rubella immune status IgGOrd ered By: Justina Guido on 06-17-2024 Rubella IgG Antibody Reactive Nonreactive [facility] Comment on above: Antibody Results Int erpretation of Immune Status Non Reactive Presumed Non-Immune Equivocal Equivocal Reactive Presumed Immune T4 Free Directon 06-17-2024 T4 FREE DIRECT 1.12 ng/dL Normal 0.76-1.46 [facility] Comment on above: Performed By: #### L 501.9520, L506.0400 #### [facility] [address] [place], [address] TPO Ab QnOrdered By: Justina Guido on 06-17-2024 Thyroid Peroxidase Antibodies 197 IU/mL High 0-34 [facility] TSH QnOrdered By: Justina trotter on 06-17-2024 Thyroid Stimulating Hormone (TSH) 1.420 uIU/mL 0.358-3.740 [facility] Thyroglobulin Ab serumOrdere d By: Justina Guido on 06-17-2024 Thyroglobulin Antibody < 1.0 IU/mL 0.0-0.9 [facility] Comment on above: Thyroglobulin Antibo dy measured by Chidi CoulterMethodologyIt should be noted that the presence of thyroglobulinantibodies may not be pathogenic nor diagnostic, especiallyat very low levels. The assay key cutter has found thatfour percent of individuals without evidence of thyroiddisease or autoimmunity will have positive TgAb levels upto 4 IU/mL.Performed at: [facility] [id number] Director: Nicolas Maldonado PhD, Phone: [phone] Thyroid Stim Hormone (TSH)on 06-17-2024 TSH 1.420 uIU/mL Normal 0.358-3.740 [facility] Comment on above: Performed By: #### L 501.9520, L506.0400 #### [facility] [address] [place], [address] Treponema sp Ab Ql (S)Ordere d By: Justina Guido on 06-17-2024 Syphilis Total Antibody Non-Reactive [facility] Type AND Screenon 06-17-2024 ABO and Rh group Nom (Bld) Blood group A Rh(D) positive Normal [facility] Comment on above: Order Comment: PN Performed By: #### L 501.9520, L506.0400 #### [facility] [address] [place], [address] Urine cultureOrdered By: Katie Guido on 06-17-2024 Bacteria identified Cx Nom (U) Culture exhibits no growth. [facility] White blood cell (WBC) count Ordered By: Justina Guido on 06-17-2024 WBC (Bld) [#/Vol] 7.2 10*3/uL 4.4-11.0 [facility] HCG ( test) QlOrder ed By: Justina Guido on 05-25-2024 Human Chorionic Gonadotropin, Quant 05291 mIU/mL High <4 [facility] Comment on above: hCG levels with Gest ational AgeGestational Age hCG mIU/mL (IU/L)0.2 - 1 week 5 - 501-2 weeks 50 - 5002-3 weeks 100 - 24792-2 weeks 500 - 313199-4 weeks 1000 - 807401-0 weeks 00815 - 100,0006-8 weeks 55220 - 200,0002-3 months 50597 - 100,000 hCG Titer Quant., Serumon HCG QUANT. 51742 mIU/mL High 1-3 [facility] Comment on above: Result Comment: hCG levels with Gestational Age Gestational Age hCG mIU/mL (IU/L) 0.2 - 1 week 5 - 50 1-2 weeks 50 - 500 2-3 weeks 100 - 5000 3-4 weeks 500 - 31181 4-5 weeks 1000 - 10847 5-6 weeks 69354 - 100,000 6-8 weeks 19293 - 200,000 2-3 months 35150 - 100,000 Performed By: #### L 100.0100, L501.9985, L500.4050, L500.4100 #### [facility] [address] [place], [place], [id number] HCG ( test) QlOrder ed By: Justina Guido on 05-23-2024 Human Chorionic Gonadotropin, Quant 6957 mIU/mL High <4 [facility] Comment on above: hCG levels with Gest ational AgeGestational Age hCG mIU/mL (IU/L)0.2 - 1 week 5 - 501-2 weeks 50 - 5002-3 weeks 100 - 89123-3 weeks 500 - 096002-4 weeks 1000 - 698652-8 weeks 94582 - 100,0006-8 weeks 27137 - 200,0002-3 months 09854 - 100,000 hCG Titer Quant., Serumon HCG QUANT. 6957 mIU/mL High 1-3 [facility] Comment on above: Result Comment: hCG levels with Gestational Age Gestational Age hCG mIU/mL (IU/L) 0.2 - 1 week 5 - 50 1-2 weeks 50 - 500 2-3 weeks 100 - 5000 3-4 weeks 500 - 46284 4-5 weeks 1000 - 76777 5-6 weeks 01870 - 100,000 6-8 weeks 28304 - 200,000 2-3 months 61869 - 100,000 Performed By: #### L 100.0100, L501.9985, L500.4050, L500.4100 #### [facility] [address] [place], [place], [id number] Anticardiolipin IgG, IgMon 1 - ANTICARDIO IgG < 9 Normal 0-14 [facility] Comment on above: Result Comment: Nega tive: <15 Indeterminate: 15 - 20 Low-Med Positive: >20 - 80 High Positive: >80 Performed By: #### L 100.0100, L501.9985, L500.4050, L500.4100 #### [facility] [address] [place], [address] Anticardio.IgM < 9 Normal 0-12 [facility] Comment on above: Result Comment: Nega tive: <13 Indeterminate: 13 - 20 Low-Med Positive: >20 - 80 High Positive: >80 Performed at: [facility] [id number] Industrial Psychologist: Jojo Montanez MD, Phone: [phone] Performed at: [facility] [id number] Industrial Psychologist: Nicolas Maldonado PhD, Phone: [phone] Performed By: #### L 100.0100, L501.9985, L500.4050, L500.4100 #### [facility] [address] [place], [address] Beta-2 Glycoprot IgG, A, 05-07-2024 B2 GLYCO I IGA <9 Normal 0-25 [facility] Comment on above: Result Comment: Resu lt Units: GPI IgA units The reference interval reflects a 3SD or 99th percentile interval, which is thought to represent a potentially clinically significant result in accordance with the International Consensus Statement on the classification criteria for definitive antiphospholipid syndrome (APS). J Thromb Haem 2006;4:295-306. Performed By: #### L 100.0100, L501.9985, L500.4050, L500.4100 #### [facility] [address] [place], [address] B2 GLYCO I IGG <9 Normal 0-20 [facility] Comment on above: Result Comment: Resu lt Units: GPI IgG units The reference interval reflects a 3SD or 99th percentile interval, which is thought to represent a potentially clinically significant result in accordance with the International Consensus Statement on the classification criteria for definitive antiphospholipid syndrome (APS). J Thromb Haem 2006;4:295-306. Performed By: #### L 100.0100, L501.9985, L500.4050, L500.4100 #### [facility] [address] [place], [place], [id number] (925) B2 GLYCO I IGM <9 Normal 0-32 [facility] Comment on above: Result Comment: Resu lt Units: GPI IgM units The reference interval reflects a 3SD or 99th percentile interval, which is thought to represent a potentially clinically significant result in accordance with the International Consensus Statement on the classification criteria for definitive antiphospholipid syndrome (APS). J Thromb Haem 2006;4:295-306. Performed By: #### L 100.0100, L501.9985, L500.4050, L500.4100 #### [facility] [address] [place], [address] Lupus Anticoagulant Compon 1 0- aPTT Coag (Bld) [Time] 35.7 s Normal 0.0-43.5 [facility] Comment on above: Performed By: #### L 100.0100, L501.9985, L500.4050, L500.4100 #### [facility] [address] [place], [address] DILUTE PT (dPT) 37.5 sec Normal 0.0-47.6 [facility] Comment on above: Performed By: #### L 100.0100, L501.9985, L500.4050, L500.4100 #### [facility] [address] [place], [address] dPT Conf. Ratio 0.97 Ratio Normal 0.00-1.34 [facility] Comment on above: Performed By: #### L 100.0100, L501.9985, L500.4050, L500.4100 #### [facility] [address] [place], [address] DRVVT 33.4 sec Normal 0.0-47.0 [facility] Comment on above: Performed By: #### L 100.0100, L501.9985, L500.4050, L500.4100 #### [facility] [address] [place], [address] Interpretation Comment: Normal . [facility] Comment on above: Result Comment: No l upus anticoagulant was detected. Performed By: #### L 100.0100, L501.9985, L500.4050, L500.4100 #### [facility] [address] [place], [address] THROMBIN TIME 19.6 sec Normal 0.0-23.0 [facility] Comment on above: Performed By: #### L 100.0100, L501.9985, L500.4050, L500.4100 #### [facility] [address] [place], [address] CBC W/Diff, Automatedon 10-2 Absolute Lymph 1.49 X10 3/uL Normal 0.83-4.51 [facility] Comment on above: Performed By: #### L 100.0100, L501.9985, L500.4050, L500.4100 #### [facility] [address] [place], [address] Absolute Neut 2.6 X10 3/uL Normal 2.0-7.7 [facility] Comment on above: Performed By: #### L 100.0100, L501.9985, L500.4050, L500.4100 #### [facility] [address] [place], [address] Basophils/100 WBC (Bld) 0.6 % Normal 0-1 [facility] Comment on above: Performed By: #### L 100.0100, L501.9985, L500.4050, L500.4100 #### [facility] [address] [place], [address] Eosinophils/100 WBC (Bld) 4.2 % Normal 0-5 [facility] Comment on above: Performed By: #### L 100.0100, L501.9985, L500.4050, L500.4100 #### [facility] [address] [place], [address] Erythrocyte distribution width (RBC) [Ratio] 11.9 % Normal 11.6-14.6 [facility] Comment on above: Performed By: #### L 100.0100, L501.9985, L500.4050, L500.4100 #### [facility] [address] [place], [address] Hematocrit (Bld) [Volume fraction] 37.2 % Normal 37-47 [facility] Comment on above: Performed By: #### L 100.0100, L501.9985, L500.4050, L500.4100 #### [facility] [address] [place], [address] Hemoglobin (Bld) [Mass/Vol] 12.8 g/dL Normal 12.0-15.0 [facility] Comment on above: Performed By: #### L 100.0100, L501.9985, L500.4050, L500.4100 #### [facility] [address] [place], [address] IG% 0.200 Normal 0.0-0.9 [facility] Comment on above: Result Comment: IG% - Immature Granulocytes (promyelocytes, myelocytes and metamyelocytes) > 1% indicates that a LEFT SHIFT is Present. Performed By: #### L 100.0100, L501.9985, L500.4050, L500.4100 #### [facility] [address] [place], [address] Lymphocytes/100 WBC (Bld) 31.4 % Normal 19-41 [facility] Comment on above: Performed By: #### L 100.0100, L501.9985, L500.4050, L500.4100 #### [facility] [address] [place], [address] MCH (RBC) [Entitic mass] 30.3 pg Normal 27.0-32.0 [facility] Comment on above: Performed By: #### L 100.0100, L501.9985, L500.4050, L500.4100 #### [facility] [address] [place], [address] MCHC (RBC) [Mass/Vol] 34.4 g/dL Normal 32-36 [facility] Comment on above: Performed By: #### L 100.0100, L501.9985, L500.4050, L500.4100 #### [facility] [address] [place], [address] MCV (RBC) [Entitic vol] 87.9 fL Normal 81-99 [facility] Comment on above: Performed By: #### L 100.0100, L501.9985, L500.4050, L500.4100 #### [facility] [address] [place], [address] Monocytes/100 WBC (Bld) 8.6 % Normal 0-10 [facility] Comment on above: Performed By: #### L 100.0100, L501.9985, L500.4050, L500.4100 #### [facility] [address] [place], [address] Neutrophils/100 WBC (Bld) 55.0 % Normal 47-70 [facility] Comment on above: Performed By: #### L 100.0100, L501.9985, L500.4050, L500.4100 #### [facility] [address] [place], [address] Nucleated RBC (Bld) [#/Vol] 0 10*3/uL Normal 0-5 [facility] Comment on above: Performed By: #### L 100.0100, L501.9985, L500.4050, L500.4100 #### [facility] [address] [place], [address] Platelet mean volume (Bld) [Entitic vol] 9.2 fL Normal 6.2-12.0 [facility] Comment on above: Performed By: #### L 100.0100, L501.9985, L500.4050, L500.4100 #### [facility] [address] [place], [address] Platelets (Bld) [#/Vol] 260 10*3/uL Normal 150-450 [facility] Comment on above: Performed By: #### L 100.0100, L501.9985, L500.4050, L500.4100 #### [facility] [address] [place], [address] RBC (Bld) [#/Vol] 4.23 10*6/uL Normal 4.2-5.4 [facility] Comment on above: Performed By: #### L 100.0100, L501.9985, L500.4050, L500.4100 #### [facility] [address] [place], [address] RDW SD 38.0 fl Normal 35.1-43.9 [facility] Comment on above: Performed By: #### L 100.0100, L501.9985, L500.4050, L500.4100 #### [facility] [address] [place], [address] WBC (Bld) [#/Vol] 4.7 10*3/uL Normal 4.4-11.0 [facility] Comment on above: Performed By: #### L 100.0100, L501.9985, L500.4050, L500.4100 #### [facility] [address] [place], [address] Comprehensive Metabolic [facility] 05-04-2024 Albumin [Mass/Vol] 3.9 g/dL Normal 3.2-5.0 [facility] Comment on above: Performed By: #### L 100.0100, L501.9985, L500.4050, L500.4100 #### [facility] [address] [place], [address] Albumin/Globulin [Mass ratio] 1.2 {ratio} Normal 0.9-2.4 [facility] Comment on above: Performed By: #### L 100.0100, L501.9985, L500.4050, L500.4100 #### [facility] [address] [place], [address] ALK P 50 U/L Normal 45-117 [facility] Comment on above: Performed By: #### L 100.0100, L501.9985, L500.4050, L500.4100 #### [facility] [address] [place], [address] ALT [Catalytic activity/Vol] 26 U/L Normal 13-56 [facility] Comment on above: Performed By: #### L 100.0100, L501.9985, L500.4050, L500.4100 #### [facility] [address] [place], [address] AST [Catalytic activity/Vol] 20 U/L Normal 15-37 [facility] Comment on above: Performed By: #### L 100.0100, L501.9985, L500.4050, L500.4100 #### [facility] [address] [place], [address] Bilirubin [Mass/Vol] 0.70 mg/dL Normal 0.20-1.00 [facility] Comment on above: Result Comment: For patients on eltrombopag therapy, use of Dimension [place] TBIL is not recommended. Performed By: #### L 100.0100, L501.9985, L500.4050, L500.4100 #### [facility] [address] [place], [address] BUN/CRE 13.9 RATIO Normal 10-20 [facility] Comment on above: Performed By: #### L 100.0100, L501.9985, L500.4050, L500.4100 #### [facility] [address] [place], [address] CA,Total 9.0 mg/dL Normal 8.5-10.1 [facility] Comment on above: Performed By: #### L 100.0100, L501.9985, L500.4050, L500.4100 #### [facility] [address] [place], [address] Chloride [Moles/Vol] 108 mmol/L High 98-107 [facility] Comment on above: Performed By: #### L 100.0100, L501.9985, L500.4050, L500.4100 #### [facility] [address] [place], [address] CO2 [Moles/Vol] 27.0 mmol/L Normal 21.0-32.0 [facility] Comment on above: Performed By: #### L 100.0100, L501.9985, L500.4050, L500.4100 #### [facility] [address] [place], [address] Creatinine [Mass/Vol] 0.58 mg/dL Normal 0.55-1.02 [facility] Comment on above: Result Comment: The validity of the calculated GFR GFRAA in patients over 70 years has not been determined. Clinical correlation is essential. Performed By: #### L 100.0100, L501.9985, L500.4050, L500.4100 #### [facility] [facility] [address] [place], [address] EST GFR - AA 157 mL/min Normal >60 [facility] Comment on above: Result Comment: Afri can Ecuadorean GFR Calc Performed By: #### L 100.0100, L501.9985, L500.4050, L500.4100 #### [facility] [address] [place], [address] GAP 6 Normal 5-15 [facility] Comment on above: Performed By: #### L 100.0100, L501.9985, L500.4050, L500.4100 #### [facility] [address] [place], [address] GFR/1.73 sq M.predicted among non-blacks MDRD (S/P/Bld) [Vol rate/Area] 130 mL/min/{1.73_m2} Normal >60 [facility] Comment on above: Result Comment: Non- GFR Calc Performed By: #### L 100.0100, L501.9985, L500.4050, L500.4100 #### [facility] [address] [place], [address] Globulin (S) [Mass/Vol] 3.3 g/dL Normal 2.2-4.2 [facility] Comment on above: Performed By: #### L 100.0100, L501.9985, L500.4050, L500.4100 #### [facility] [address] [place], [address] Glucose [Mass/Vol] 74 mg/dL Normal 74-106 [facility] Comment on above: Performed By: #### L 100.0100, L501.9985, L500.4050, L500.4100 #### [facility] [address] [place], [address] Potassium [Moles/Vol] 3.6 mmol/L Normal 3.5-5.1 [facility] Comment on above: Performed By: #### L 100.0100, L501.9985, L500.4050, L500.4100 #### [facility] [address] [place], [address] Sodium [Moles/Vol] 140 mmol/L Normal 136-145 [facility] Comment on above: Performed By: #### L 100.0100, L501.9985, L500.4050, L500.4100 #### [facility] [address] [place], [address] T PROT 7.2 g/dL Normal 6.4-8.2 [facility] Comment on above: Performed By: #### L 100.0100, L501.9985, L500.4050, L500.4100 #### [facility] [address] [place], [address] Urea nitrogen [Mass/Vol] 8 mg/dL Normal 7-18 [facility] Comment on above: Performed By: #### L 100.0100, L501.9985, L500.4050, L500.4100 #### [facility] [address] [place], [address] Hemoglobin A1con 05-04-2024 HbA1c (Bld) [Mass fraction] 5.1 % Normal 3.8-5.6 [facility] Comment on above: Result Comment: Norm al < 5.7 % Prediabetic 5.7 - 6.4 % Diabetic >or= 6.5 % Please note range changes. Performed By: #### L 100.0100, L501.9985, L500.4050, L500.4100 #### [facility] [address] [place], [address] Lipid Profileon 05-04-2024 Cholesterol [Mass/Vol] 156 mg/dL Normal 200 [facility] Comment on above: Result Comment: <200 mg/dL Desirable 200-240 mg/dL Borderline >240 mg/dL High Risk Performed By: #### L 100.0100, L501.9985, L500.4050, L500.4100 #### [facility] [address] [place], [address] Cholesterol in HDL [Mass/Vol] 52 mg/dL Normal [facility] Comment on above: Result Comment: The drugs N-Acetylcysteine and Metamizole may falsely depress this assay. Reference Range HDL <40 mg/dL Low HDL Cholesterol HDL >or= 60 mg/dL High HDL Cholesterol Performed By: #### L 100.0100, L501.9985, L500.4050, L500.4100 #### [facility] [address] [place], [address] Cholesterol in LDL [Mass/Vol] 89 mg/dL Normal 0-130 [facility] Comment on above: Performed By: #### L 100.0100, L501.9985, L500.4050, L500.4100 #### [facility] [address] [place], [address] Cholesterol in VLDL [Mass/Vol] 15 mg/dL Normal 5-40 [facility] Comment on above: Performed By: #### L 100.0100, L501.9985, L500.4050, L500.4100 #### [facility] [address] [place], [address] Triglyceride [Mass/Vol] 76 mg/dL Normal [facility] Comment on above: Result Comment: The drugs N-Acetylcysteine and Metamizole may falsely depress this assay. Serum Triglycerides Reference Interval Normal <150 mg/dL Borderline high 150 - 199 mg/dL High 200 - 499 mg/dL Very High > or = 500 mg/dL Performed By: #### L 100.0100, L501.9985, L500.4050, L500.4100 #### [facility] [address] [place], [address] T4 Free Directon 05-04-2024 T4 FREE DIRECT 0.97 ng/dL Normal 0.76-1.46 [facility] Comment on above: Performed By: #### L 501.9520, L506.0400 #### [facility] [address] [place], [address] Thyroid Stim Hormone (TSH)on 05-04-2024 TSH 1.460 uIU/mL Normal 0.358-3.740 [facility] Comment on above: Performed By: #### L 501.9520, L506.0400 #### [facility] [address] [place], [address] [facility] Visit Reporton 01-29-2024 [facility] Visit Report [facility] [address] [place] [address] OFFICE VISIT Date of Service: 01/29/24 MR#: [id number] Acct: [id number] Name: CECY GALLEGOS Rep #: [id number] : 1995 Provider: Dr. 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 HPI D C Details: CECY GALLEGOS is [...] live - full term 6# Male none [facility] Alexia jewelterry [place] 07/10/22 Annabelle Rouse 37 live - full term 7#11oz Female none [facility] Hay Tayo 01/11/24 spontaneous SM Delivery Date: 04/29/20 Last Updated by: Su MULLINS Delivery Date: 07/10/22 Last Updated by: Su MULLINS IOL Delivery Date: 01/11/24 Last Updated by: GELY Boykin C ROS ENT ENT: Reports system reviewed and no [...] recurrent miscarriage (more content not included)... Normal [facility] Cervical or vaginal specimen microscopic examination by liquid based cytology (reportOrdered By: Justina Guido on 09-25-2023 Cytology report Cyto stain.thin prep Doc (Cvx/Vag) Comment . [facility] Comment on above: Criteria not met, HP V Genotype not performed.Performed at: - [facility] [id number] Director: Isis Aranda MD, Phone: [phone] at: = - [facility] [id number] [place], [place] [id number] Director: Isis Aranda MD, Phone: [phone] Cervical or vagninal specime n microscopic examination by cytology stain (reported asOrdered By: Justina Guido on 09-25-2023 Cytology report Cyto stain Doc (Cvx/Vag) Comment . [facility] Comment on above: The Pap smear is [...] DNA Probe+sig amp Ql (Cvx) Negative Negative [facility] Comment on above: This nucleic acid am plification test detects fourteen high- risk HPV types (16,18,31,33,35,39,45,51,52,56,58,59,66,68)without differentiation. Laboratory - CytologyOrdered By: Justina Guido on 09-25-2023 Palletizer Cyto stain Nom (Cvx/Vag) [ID] Comment . [facility] Comment on above: Fleicia Thompson, [employer] hnologist (ASCP) Laboratory - Miscellaneous t estsOrdered By: Justina Guido on 09-25-2023 Service comment (Unsp spec) [Interp] . . [facility] Thin prep Papanicolaou smear with manual screeningOrdered By: Justina Guido on 09-25-2023 Thin prep Papanicolaou smear with manual screening Comment . [facility] Comment on above: NEGATIVE FOR INTRAEP ITHELIAL LESION OR MALIGNANCY. This liquid based Th inPrep(R) pap test was screened withthe use of an image guided system. No Panel InformationOrdered By: Justina Guido on 09-21-2023 Free Triiodothyronine (T3) pg/dL 2.8 pg/mL 2.18-3.98 [facility] Serum or plasma thyroid stim ulating hormone (TSH) measurement (units/volume)Ordered By: Justina Guido on 09-21-2023 TSH Qn 2.17 uIU/mL 0.358-3.74 [facility] Thin prep Papanicolaou smear with manual screeningOrdered By: Justina Guido on 09-21-2023 Thin prep Papanicolaou smear with manual screening 1.01 ng/dL 0.76-1.46 [facility] Serum or plasma choriogonado tropin detectionOrdered By: Caroline Stern on 08-17-2023 HCG ( test) Ql < 1 mIU/mL <4 [facility] Comment on above: hCG levels with Gest ational AgeGestational Age hCG mIU/mL (IU/L)0.2 - 1 week 5 - 501-2 weeks 50 - 5002-3 weeks 100 - 73853-6 weeks 500 - 470056-9 weeks 1000 - 444859-7 weeks 82409 - 100,0006-8 weeks 94519 - 200,0002-3 months 50733 - 100,000 Serum or plasma choriogonado tropin detectionOrdered By: Caroline Stern on 08-03-2023 HCG ( test) Ql 31 mIU/mL <4 [facility] Comment on above: hCG levels with Gest ational AgeGestational Age hCG mIU/mL (IU/L)0.2 - 1 week 5 - 501-2 weeks 50 - 5002-3 weeks 100 - 42872-2 weeks 500 - 833525-3 weeks 1000 - 258313-0 weeks 90584 - 100,0006-8 weeks 40577 - 200,0002-3 months 28193 - 100,000 Serum or plasma choriogonado tropin detectionOrdered By: Caroline Stern on 07-29-2023 HCG ( test) Ql 216 mIU/mL <4 [facility] Comment on above: hCG levels with Gest ational AgeGestational Age hCG mIU/mL (IU/L)0.2 - 1 week 5 - 501-2 weeks 50 - 5002-3 weeks 100 - 88243-7 weeks 500 - 805000-2 weeks 1000 - 898915-1 weeks 15120 - 100,0006-8 weeks 09029 - 200,0002-3 months 43627 - 100,000 Serum or plasma choriogonado tropin detectionOrdered By: Caroline Stern on 07-27-2023 HCG ( test) Ql 165 mIU/mL <4 [facility] Comment on above: hCG levels with Gest ational AgeGestational Age hCG mIU/mL (IU/L)0.2 - 1 week 5 - 501-2 weeks 50 - 5002-3 weeks 100 - 50488-2 weeks 500 - 273873-0 weeks 1000 - 283327-3 weeks 99814 - 100,0006-8 weeks 89575 - 200,0002-3 months 19768 - 100,000 Laboratory - Chemistry and C hemistry - challengeOrdered By: Moises Mazariegos on 05-25-2023 Free T4 [Mass/Vol] 0.87 ng/dL 0.76-1.46 [facility] No Panel InformationOrdered By: Moises Mazariegos on 05-25-2023 Thyroid Stimulating Hormone (TSH) 1.36 uIU/mL 0.358-3.74 [facility] Basophil percentageOrdered B y: Justina Guido on 10-24-2022 Chloride [Moles/Vol] 108 mmol/L 98-107 [facility] Cholesterol [Mass/Vol] 152 mg/dL <200 [facility] Comment on above: <200 mg/dL Desirable 200-240 mg/dL Borderline >240 mg/dL High Risk Glucose [Mass/Vol] 95 mg/dL 74-106 [facility] Potassium [Moles/Vol] 3.7 mmol/L 3.5-5.1 [facility] Sodium [Moles/Vol] 139 mmol/L 136-145 [facility] Triglyceride [Mass/Vol] 37 mg/dL <199 [facility] Comment on above: The drugs N-Acetylcy steine and Metamizole may falsely depress this assay.Serum Triglycerides Reference Interval Normal <150 mg/dL Borderline high 150 - 199 mg/dL High 200 - 499 mg/dL Very High > or = 500 mg/dL Laboratory - Chemistry and C hemistry - challengeOrdered By: Justina Guido on 10-24-2022 CO2 [Moles/Vol] 28.0 mmol/L 21.0-32.0 [facility] Free T4 [Mass/Vol] 1.06 ng/dL 0.76-1.46 [facility] Urea nitrogen/Creatinine [Mass ratio] 15.5 mg/mg 10-20 [facility] No Panel InformationOrdered By: Justina Guido on 10-24-2022 Estimated GFR (MDRD) Amer 139 mL/min >60 [facility] Comment on above: GFR Calc Estimated GFR (MDRD) Non-Af Amer 115 mL/min >60 [facility] Comment on above: Non- GFR Calc Thyroid Stimulating Hormone (TSH) 0.08 uIU/mL 0.358-3.74 [facility] Serum or plasma calcium ramiro urement (mass/volume)Ordered By: Justina Guido on 10-24-2022 Calcium [Mass/Vol] 8.7 mg/dL 8.5-10.1 [facility] Serum or plasma cholesterol in HDL measurement (mass/volume)Ordered By: Justina Guido on 10-24-2022 Cholesterol in HDL [Mass/Vol] 44 mg/dL >40 [facility] Comment on above: The drugs N-Acetylcy steine and Metamizole may falsely depress this assay. Reference Range HDL <40 mg/dL Low HDL Cholesterol HDL >or= 60 mg/dL High HDL Cholesterol Serum or plasma cholesterol in VLDL measurement (mass/volume)Ordered By: Justina Guido on 10-24-2022 Cholesterol in VLDL [Mass/Vol] 7 mg/dL 5-40 [facility] Serum or plasma creatinine m easurement (mass/volume)Ordered By: Justina Guido on 10-24-2022 Creatinine [Mass/Vol] 0.64 mg/dL 0.55-1.02 [facility] Comment on above: The validity of the calculated GFR & GFRAA in patients over 70 years has not been determined. Clinical correlation is essential. Serum or plasma low density lipoprotein (LDL) cholesterol measurement (mass/volume)Ordered By: Justina Guido on 10-24-2022 Cholesterol in LDL [Mass/Vol] 101 mg/dL 0-130 [facility] Serum or plasma urea nitroge n measurement (mass/volume)Ordered By: Justina Guido on 10-24-2022 Urea nitrogen [Mass/Vol] 10 mg/dL 7-18 [facility] Thin prep Papanicolaou smear with manual screeningOrdered By: Justina Guido on 10-24-2022 Thin prep Papanicolaou smear with manual screening 3 5-15 [facility] Absolute lymphocyte countOrd ered By: Justina Guido on 07-09-2022 Lymphocytes Auto (Unsp spec) [#/Vol] 1.76 10*3/uL 0.83-4.51 [facility] Basophil percentageOrdered B y: Justina Guido on 07-09-2022 Basophils/100 WBC (Bld) 0.4 % 0-1 [facility] Eosinophils/100 WBC (Bld) 1.8 % 0-5 [facility] Neutrophils (Bld) [#/Vol] 8.3 10*3/uL 2.0-7.7 [facility] Neutrophils/100 WBC (Bld) 73.5 % 47-70 [facility] WBC (Bld) [#/Vol] 11.2 10*3/uL 4.4-11.0 [facility] Blood erythrocytes count (nu mber/volume)Ordered By: Justina Guido on 07-09-2022 RBC (Bld) [#/Vol] 3.64 10*6/uL 4.2-5.4 [facility] Blood hemoglobin measurement (mass/volume)Ordered By: Justina Guido on 07-09-2022 Hemoglobin (Bld) [Mass/Vol] 10.4 g/dL 12.0-15.0 [facility] Blood lymphocytes/100 leukoc ytesOrdered By: Justina Guido on 07-09-2022 Lymphocytes/100 WBC (Bld) 15.7 % 19-41 [facility] Blood monocytes/100 leukocyt esOrdered By: Justina Guido on 07-09-2022 Monocytes/100 WBC (Bld) 7.8 % 0-10 [facility] Blood platelet mean volumeOr dered By: Justina Guido on 07-09-2022 Platelet mean volume (Bld) [Entitic vol] 9.2 fL 6.2-12.0 [facility] Determination of erythrocyte mean corpuscular volume (MCV)Ordered By: Justina Guido on 07-09-2022 MCV (RBC) [Entitic vol] 83.2 fL 81-99 [facility] Hematocrit Auto (Bld) [Volum e fraction]Ordered By: Justina Guido on 07-09-2022 Hematocrit (Bld) [Volume fraction] 30.3 % 37-47 [facility] Laboratory - Hematology and Cell countsOrdered By: Justina Guido on 07-09-2022 Erythrocyte distribution width (RBC) [Entitic vol] 39.6 fL 35.1-43.9 [facility] Erythrocyte distribution width (RBC) [Ratio] 13.2 % 11.6-14.6 [facility] Immature granulocytes/100 WBC (Bld) 0.800 % 0.0-0.9 [facility] Comment on above: IG% - Immature Granu locytes (promyelocytes, myelocytes and metamyelocytes) > 1% indicates that a LEFT SHIFT is Present. MCH (RBC) [Entitic mass] 28.6 pg 27.0-32.0 [facility] Nucleated RBC/100 WBC (Bld) [Ratio] 0 % 0-5 [facility] MCHC Auto (RBC) [Mass/Vol]Or dered By: Justina Guido on 07-09-2022 MCHC (RBC) [Mass/Vol] 34.3 g/dL 32-36 [facility] No Panel InformationOrdered By: Justina Guido on 07-09-2022 Vaginal Amniotic Fluid Detection Positive Negative [facility] Comment on above: Amniotic fluid prese nt indicates rupture of Membranes. RESULTS CALLED TO OZZIE LYONS 07/09/221926 Stephy Borjas.REPORT READ BACK BY SAME . Platelets bldOrdered By: Katie Guido on 07-09-2022 Platelets (Bld) [#/Vol] 252 10*3/uL 150-450 [facility] - Chemistry and C hemistry - challengeon 07-03-2022 Glucose Ql (U) Negative [facility] Work Phone: Laboratory - Urinalysison Protein Ql (U) Negative [facility] Work Phone: Laboratory - Chemistry and C hemistry - challengeon 06-27-2022 Glucose Ql (U) Negative [facility] Work Phone: Laboratory - Urinalysison Protein Ql (U) Negative [facility] Work Phone: [phone] Laboratory - Chemistry and C hemistry - challengeon 06-16-2022 Glucose Ql (U) Negative [facility] Work Phone: Laboratory - Urinalysison Protein Ql (U) Negative [facility] Work Phone: Laboratory - Chemistry and C hemistry - challengeon 06-02-2022 Glucose Ql (U) Negative [facility] Work Phone: [phone] Laboratory - Urinalysison Protein Ql (U) Negative [facility] Work Phone: Laboratory - Chemistry and C hemistry - challengeon 05-23-2022 Glucose Ql (U) Negative [facility] Work Phone: Laboratory - Urinalysison Protein Ql (U) Negative [facility] Work Phone: Laboratory - Chemistry and C hemistry - challengeon 05-09-2022 Glucose Ql (U) Negative [facility] Work Phone: Laboratory - Urinalysison Protein Ql (U) Negative [facility] Work Phone: Absolute lymphocyte counton 04-21-2022 Lymphocytes Auto (Unsp spec) [#/Vol] 1.35 10*3/uL 0.83-4.51 [facility] Work Phone: Basophil percentageon 2021 Basophils/100 WBC (Bld) 0.4 % 0-1 [facility] Work Phone: Eosinophils/100 WBC (Bld) 3.3 % 0-5 [facility] Work Phone: Neutrophils (Bld) [#/Vol] 5.8 10*3/uL 2.0-7.7 [facility] Work Phone: Neutrophils/100 WBC (Bld) 71.6 % 47-70 [facility] Work Phone: WBC (Bld) [#/Vol] 8.1 10*3/uL 4.4-11.0 [facility] Work Phone: Blood erythrocytes count (nu mber/volume)on 04-21-2022 RBC (Bld) [#/Vol] 3.67 10*6/uL 4.2-5.4 [facility] Work Phone: Blood hemoglobin measurement (mass/volume)on 04-21-2022 Hemoglobin (Bld) [Mass/Vol] 11.5 g/dL 12.0-15.0 [facility] Work Phone: Blood lymphocytes/100 leukoc yteson 04-21-2022 Lymphocytes/100 WBC (Bld) 16.6 % 19-41 [facility] Work Phone: Blood monocytes/100 leukocyt eson 04-21-2022 Monocytes/100 WBC (Bld) 6.9 % 0-10 [facility] Work Phone: Blood platelet mean volumeon 04-21-2022 Platelet mean volume (Bld) [Entitic vol] 9.0 fL 6.2-12.0 [facility] Work Phone: [phone] Determination of erythrocyte mean corpuscular volume (MCV)on 04-21-2022 MCV (RBC) [Entitic vol] 90.7 fL 81-99 [facility] Work Phone: [phone] Gestational diabetes screen 1-hour screen with 50g oral glucose loadon 04-21-2022 Glucose 1 Hr post 50 g glucose PO [Mass/Vol] 120 mg/dL 70-140 [facility] Work Phone: Hematocrit Auto (Bld) [Volum e fraction]on 04-21-2022 Hematocrit (Bld) [Volume fraction] 33.3 % 37-47 [facility] Work Phone: Laboratory - Chemistry and C hemistry - challengeon 04-21-2022 Glucose Ql (U) Negative [facility] Work Phone: [phone] Laboratory - Hematology and Cell countson 04-21-2022 Erythrocyte distribution width (RBC) [Entitic vol] 38.8 fL 35.1-43.9 [facility] Work Phone: [phone] Erythrocyte distribution width (RBC) [Ratio] 11.8 % 11.6-14.6 [facility] Work Phone: [phone] Immature granulocytes/100 WBC (Bld) 1.200 % 0.0-0.9 [facility] Work Phone: Comment on above: IG% - Immature Granu locytes (promyelocytes, myelocytes and metamyelocytes) > 1% indicates that a LEFT SHIFT is Present. MCH (RBC) [Entitic mass] 31.3 pg 27.0-32.0 [facility] Work Phone: Nucleated RBC/100 WBC (Bld) [Ratio] 0 % 0-5 [facility] Work Phone: Laboratory - Urinalysison Protein Ql (U) Negative [facility] Work Phone: [phone] MCHC Auto (RBC) [Mass/Vol]on 04-21-2022 MCHC (RBC) [Mass/Vol] 34.5 g/dL 32-36 [facility] Work Phone: [phone] No Panel Informationon 04-21 Thyroid Stimulating Hormone (TSH) 1.43 uIU/mL 0.358-3.74 [facility] Work Phone: [phone] Platelets bldon 04-21-2022 Platelets (Bld) [#/Vol] 257 10*3/uL 150-450 [facility] Work Phone: Laboratory - Chemistry and C hemistry - challengeon 03-25-2022 Glucose Ql (U) Negative [facility] Work Phone: [phone] Laboratory - Urinalysison Protein Ql (U) Negative [facility] Work Phone: [phone] Laboratory - Chemistry and C hemistry - challengeon 02-24-2022 Glucose Ql (U) Negative [facility] Work Phone: [phone] Laboratory - Urinalysison Protein Ql (U) Negative [facility] Work Phone: [phone] Laboratory - Chemistry and C hemistry - challengeon 01-28-2022 Glucose Ql (U) Negative [facility] Work Phone: [phone] Laboratory - Urinalysison Protein Ql (U) Negative [facility] Work Phone: [phone] Laboratory - Chemistry and C hemistry - challengeon 01-08-2022 Glucose Ql (U) Negative [facility] Work Phone: [phone] Laboratory - Urinalysison Protein Ql (U) Negative [facility] Work Phone: [phone] Laboratory - Chemistry and C hemistry - challengeon 01-01-2022 Glucose Ql (U) Negative [facility] Work Phone: [phone] Laboratory - Urinalysison Protein Ql (U) Negative [facility] Work Phone: [phone] Absolute lymphocyte counton 12-05-2021 Lymphocytes Auto (Unsp spec) [#/Vol] 1.68 10*3/uL 0.83-4.51 [facility] Work Phone: Basophil percentageon 2021 Basophils/100 WBC (Bld) 0.5 % 0-1 [facility] Work Phone: Eosinophils/100 WBC (Bld) 1.0 % 0-5 [facility] Work Phone: Neutrophils (Bld) [#/Vol] 5.9 10*3/uL 2.0-7.7 [facility] Work Phone: Neutrophils/100 WBC (Bld) 70.5 % 47-70 [facility] Work Phone: WBC (Bld) [#/Vol] 8.4 10*3/uL 4.4-11.0 [facility] Work Phone: Blood erythrocytes count (nu mber/volume)on 12-05-2021 RBC (Bld) [#/Vol] 4.24 10*6/uL 4.2-5.4 [facility] Work Phone: Blood hemoglobin measurement (mass/volume)on 12-05-2021 Hemoglobin (Bld) [Mass/Vol] 12.5 g/dL 12.0-15.0 [facility] Work Phone: Blood lymphocytes/100 leukoc yteson 12-05-2021 Lymphocytes/100 WBC (Bld) 20.0 % 19-41 [facility] Work Phone: Blood monocytes/100 leukocyt eson 12-05-2021 Monocytes/100 WBC (Bld) 7.5 % 0-10 [facility] Work Phone: Blood platelet mean volumeon 12-05-2021 Platelet mean volume (Bld) [Entitic vol] 9.3 fL 6.2-12.0 [facility] Work Phone: [phone] Chlamydia trachomatis rRNA d etection by probe and target amplification methodon 12-05-2021 C. trachomatis rRNA RORY+probe Ql (Unsp spec) Negative Negative [facility] Work Phone: Culture, urineon 12-05-2021 Bacteria identified Cx Nom (U) Streptococcus agalactiae (B) [facility] Work Phone: [phone] Determination of erythrocyte mean corpuscular volume (MCV)on 12-05-2021 MCV (RBC) [Entitic vol] 86.1 fL 81-99 [facility] Work Phone: [phone] HIV 1 and HIV-2 antibody ass ay with HIV-1 p24 antigen detectionon 12-05-2021 HIV 1+2 Ab+HIV1 p24 Ag IA Ql Non-Reactive Nonreactive [facility] Work Phone: Hematocrit Auto (Bld) [Volum e fraction]on 12-05-2021 Hematocrit (Bld) [Volume fraction] 36.5 % 37-47 [facility] Work Phone: Laboratory - Chemistry and C hemistry - challengeon 12-05-2021 Free T4 [Mass/Vol] 1.11 ng/dL 0.76-1.46 [facility] Work Phone: Laboratory - Drug toxicology on 12-05-2021 Amphetamines Ql (U) Negative <1000 ng/[facility]: Benzodiazepines Ql (U) Negative < 200 ng/mL [facility] Work Phone: Cannabinoids Screen Ql (U) Negative < 50 ng/mL [facility] Work Phone: Cocaine Ql (U) Negative < 300 ng/mL [facility] Work Phone: Opiates Ql (U) Negative < 300 ng/mL [facility] Work Phone: Laboratory - Hematology and Cell countson 12-05-2021 Erythrocyte distribution width (RBC) [Entitic vol] 37.7 fL 35.1-43.9 [facility] Work Phone: Erythrocyte distribution width (RBC) [Ratio] 11.9 % 11.6-14.6 [facility] Work Phone: Immature granulocytes/100 WBC (Bld) 0.500 % 0.0-0.9 [facility] Work Phone: Comment on above: IG% - Immature Granu locytes (promyelocytes, myelocytes and metamyelocytes) > 1% indicates that a LEFT SHIFT is Present. MCH (RBC) [Entitic mass] 29.5 pg 27.0-32.0 [facility] Work Phone: Nucleated RBC/100 WBC (Bld) [Ratio] 0 % 0-5 [facility] Work Phone: Laboratory - Microbiology an d Antimicrobial susceptibilityon 12-05-2021 N. gonorrhoeae DNA RORY+probe Ql (Unsp spec) Negative Negative [facility] Work Phone: Comment on above: Performed at: =[address] [place] [id number] Director: Isis Aranda MD, Phone: [phone] MCHC Auto (RBC) [Mass/Vol]on 12-05-2021 MCHC (RBC) [Mass/Vol] 34.2 g/dL 32-36 [facility] Work Phone: No Panel Informationon 12-05 MDMA (Ecstasy) Screen Negative < 500 ng/mL [facility] Work Phone: Urine Barbiturates Screen Negative < 200 ng/mL [facility] Work Phone: Urine Drug Screen Comment [facility] Work Phone: Comment on above: CONFIRMATORY TESTING [...] Urine Methadone Screen Negative < 300 ng/mL [facility] Work Phone: Hepatitis B Surface Antigen Non-Reactive Nonreactive [facility] Work Phone: Hepatitis C Antibody Non-Reactive Nonreactive [facility] Work Phone: Comment on above: Non Reactive: < 0.8 Equivocal: >/= 0.8 to < 1.0 Reactive: >/= 1.0The CDC recommends that a reactive/equivocal HCV antibody result be followed up by the HCV Nucleic Acid Amplificationtest (177148) Rubella IgG Antibody Reactive Nonreactive [facility] Work Phone: Comment on above: Antibody Results Int erpretation of Immune Status Non Reactive Presumed Non-Immune Equivocal Equivocal Reactive Presumed Immune Thyroid Stimulating Hormone (TSH) 1.46 uIU/mL 0.358-3.74 [facility] Work Phone: Platelets bldon 12-05-2021 Platelets (Bld) [#/Vol] 288 10*3/uL 150-450 [facility] Work Phone: Serum Treponema species anti body detectionon 12-05-2021 Treponema sp Ab Ql (S) Non-Reactive [facility] Work Phone: Urine phencyclidine (PCP) de tectionon 12-05-2021 Phencyclidine Ql (U) Negative < 25 ng/mL [facility] Work Phone: Serum or plasma choriogonado tropin detectionon 11-19-2021 HCG ( test) Ql [address]1986 mIU/mL <4 [facility] Work Phone: Comment on above: hCG levels with Gest ational AgeGestational Age hCG mIU/mL (IU/L)0.2 - 1 week 5 - 501-2 weeks 50 - 5002-3 weeks 100 - 89997-2 weeks 500 - 386654-3 weeks 1000 - 577819-0 weeks 48927 - 100,0006-8 weeks 22622 - 200,0002-3 months 07873 - 100,000 Laboratory - Chemistry and C hemistry - challengeon 10-07-2021 Free T4 [Mass/Vol] 0.89 ng/dL 0.76-1.46 [facility] Work Phone: No Panel Informationon 10-07 Thyroid Stimulating Hormone (TSH) 2.36 uIU/mL 0.358-3.74 [facility] Work Phone: No Panel Informationon 08-09 Free Triiodothyronine (T3) pg/dL 3.1 pg/mL 2.18-3.98 [facility] Work Phone: Thyroid Stimulating Hormone (TSH) 3.86 uIU/mL 0.358-3.74 [facility] Work Phone: Homocysteine-Serumon 018 Homocysteine-Serum 7.2 umol/L Normal <10.4 [facility] Comment on above: Result Comment: Homo cysteine is increased by functional deficiency offolate or vitamin B12. Testing for methylmalonic aciddifferentiates between these deficiencies. Other causesof increased homocysteine include renal failure, folateantagonists such as methotrexate and phenytoin, andexposure to nitrous oxide.Test Performed by [employer] [facility],[address] [place] [id number] Villela M.D., Ph.D., Director of [phone], [facility] [phone] Performed By: #### H OMOCYSTEINEQ ####[address] [place] [address] Homocysteine-Serumon 018 Age at Specimen Collection = Normal [facility] Comment on above: Performed By: #### H OMOCYSTEINEQ ####[address] [place] [address] CBC With Auto Diff.on 2016 Basophils Auto #/vol (Bld) 0.02 10*3/uL Normal 0.00-0.15 [facility] Comment on above: Order Comment: Regul atory Requirements State: Only Absolute Cell Counts are reported with their reference ranges. Performed By: #### C BC ####[facility] (DEFAULT)[address] [place], [place] [address] Basophils/100 WBC Auto (Bld) 0.3 % Normal [facility] Comment on above: Order Comment: Regul atory Requirements State: Only Absolute Cell Counts are reported with their reference ranges. Performed By: #### C BC ####[facility] (DEFAULT)[address] [place], [place] [address] Eosinophils 0.01 10*3/uL Normal 0.00-0.70 [facility] Comment on above: Order Comment: Regul atory Requirements State: Only Absolute Cell Counts are reported with their reference ranges. Performed By: #### C BC ####[facility] (DEFAULT)[address] [place], [place] [address] Eosinophils/100 leukocytes 0.2 % Normal [facility] Comment on above: Order Comment: Regul atory Requirements State: Only Absolute Cell Counts are reported with their reference ranges. Performed By: #### C BC ####[facility] (DEFAULT)[address] [place], [place] [address] Erythrocyte distribution width Auto Ratio (RBC) 11.5 % Normal 11.0-16.0 [facility] Comment on above: Order Comment: Regul atory Requirements State: Only Absolute Cell Counts are reported with their reference ranges. Performed By: #### C BC ####[facility] (DEFAULT)[address] [place] [address] Erythrocytes (RBC) 4.32 10*6/uL Normal 2.50-5.50 [facility] Comment on above: Order Comment: Regul atory Requirements State: Only Absolute Cell Counts are reported with their reference ranges. Performed By: #### C BC ####[facility] (DEFAULT)[address] [place] [address] Hematocrit (HCT) 37.2 % Low 38.0-46.0 [facility] Comment on above: Order Comment: Regul atory Requirements State: Only Absolute Cell Counts are reported with their reference ranges. Performed By: #### C BC ####[facility] (DEFAULT)[address] [place] [address] Hemoglobin mass conc (Bld) 13.3 g/dL Normal 12.0-15.0 [facility] Comment on above: Order Comment: Regul atory Requirements State: Only Absolute Cell Counts are reported with their reference ranges. Performed By: #### C BC ####[facility] (DEFAULT)[address] [place] [address] Ig% 0.3 % Normal 0.0-4.0 [facility] Comment on above: Order Comment: Regul atory Requirements State: Only Absolute Cell Counts are reported with their reference ranges. Performed By: #### C BC ####[facility] (DEFAULT)[address] [place], [place] [address] Lymphocytes 1.78 10*3/uL Normal 1.10-4.40 [facility] Comment on above: Order Comment: Regul atory Requirements State: Only Absolute Cell Counts are reported with their reference ranges. Performed By: #### C BC ####[facility] (DEFAULT)[address] [place], [place] [address] Lymphocytes variants/100 leukocytes 26.8 % Normal [facility] Comment on above: Order Comment: Regul atory Requirements State: Only Absolute Cell Counts are reported with their reference ranges. Performed By: #### C BC ####[facility] (DEFAULT)[address] [place] [address] MCH 30.8 pg Normal 26.0-38.0 [facility] Comment on above: Order Comment: Regul atory Requirements State: Only Absolute Cell Counts are reported with their reference ranges. Performed By: #### C BC ####[facility] (DEFAULT)[address] [place] [address] MCHC mass conc (RBC) 35.8 g/dL Normal 31.0-37.0 [facility] Comment on above: Order Comment: Regul atory Requirements State: Only Absolute Cell Counts are reported with their reference ranges. Performed By: #### C BC ####[facility] (DEFAULT)[address] [place] [address] MCV 86 fL Normal 78-94 [facility] Comment on above: Order Comment: Regul atory Requirements State: Only Absolute Cell Counts are reported with their reference ranges. Performed By: #### C BC ####[facility] (DEFAULT)[address] [place] [address] Monocytes 0.57 10*3/uL Normal 0.20-0.95 [facility] Comment on above: Order Comment: Regul atory Requirements State: Only Absolute Cell Counts are reported with their reference ranges. Performed By: #### C BC ####[facility] (DEFAULT)[address] [place] [address] Monocytes/100 leukocytes 8.6 % Normal [facility] Comment on above: Order Comment: Regul atory Requirements State: Only Absolute Cell Counts are reported with their reference ranges. Performed By: #### C BC ####[facility] (DEFAULT)[address] [place], [place] [address] Neutrophils 4.25 10*3/uL Normal 1.50-7.50 [facility] Comment on above: Order Comment: Regul atory Requirements State: Only Absolute Cell Counts are reported with their reference ranges. Performed By: #### C BC ####[facility] (DEFAULT)[address] [place] [address] Neutrophils/100 WBC Auto (Bld) 63.8 % Normal [facility] Comment on above: Order Comment: Regul atory Requirements State: Only Absolute Cell Counts are reported with their reference ranges. Performed By: #### C BC ####[facility] (DEFAULT)[address] [place] [address] Platelet mean volume (PMV) 9.3 fL Normal 9.0-13.0 [facility] Comment on above: Order Comment: Regul atory Requirements State: Only Absolute Cell Counts are reported with their reference ranges. Performed By: #### C BC ####[facility] (DEFAULT)[address] [place] [address] Platelets 283 U/uL Normal 150-450 [facility] Comment on above: Order Comment: Regul atory Requirements State: Only Absolute Cell Counts are reported with their reference ranges. Performed By: #### C BC ####[facility] (DEFAULT)[address] [place] [address] WBC (Leukocytes) 6.65 10*3/uL Normal 4.80-11.80 [facility] Comment on above: Order Comment: Regul atory Requirements State: Only Absolute Cell Counts are reported with their reference ranges. Performed By: #### C BC ####[facility] (DEFAULT)[address] [place] [address] Homocyst(e)ine, Plasmaon Homocyst(e)ine, Plasma HOMOCYSTEINE: 5.8 Units: umol/L Ref Range: 5.0-15.0 Testing Performed At: [facility] [address] [place] [address] [facility] Comment on above: Performed By: #### H CYST ####[facility] (DEFAULT)[address] [place] [address] Protein C Agon 01-23-2017 Protein C Ag PROTEIN C ANTIGEN: 9 8 Units: % Ref Range: 60-125Testing Performed At: [facility] [address] [place] [address]Rnhtwk, full-term infants or healthy premature infants may have decreased levels of Protein-C Antigen (15-50%), which may not reach adult levels until later inchildhood or early adolescence. [facility] Comment on above: Performed By: #### P ROTCAG ####[facility] (DEFAULT)[address] [place] [address] Culture, urine Bacteria identified Cx Nom (U) Streptococcus agalactiae (B) [facility] Work Phone: Gram stain for investigation of transfusion reaction Microscopic observation Gram stain Nom (Unsp spec) [facility] Work Phone: Thin prep Papanicolaou smear with manual screening Genital Culture Streptococcus agalac tiae (B) [facility] Work Phone: Genital Culture Mixed Joanne [facility] Work Phone: Vital Signs Date Time Vital Sign Value Performing Clinician Facility 01-12-2025 08:29-0400 Body height 160.02 cm [facility] Work Phone: [facility] 01-12-2025 08:29-0400 Body mass index (BMI) [Ratio] 28 kg/m2 [facility] Moya Okruga Work Phone: [facility] 01-12-2025 08:29-040 Body weight 71.66 kg [facility] DO Work Phone: [facility] 01-12-2025 08:29-0400 Diastolic blood pressure 67 mm[Hg] [facility] DO Work Phone: 7(483)484-822980 [place] [address] 01-12-2025 08:29-0400 Systolic blood pressure 108 mm[Hg] Farzaneh Kt DO Work Phone: 6(387)918-650680 [place] [address] 01-05-2025 11:37-0400 Body height 160.02 cm Farzaneh Kt DO Work Phone: 2(903)578-491180 [place] [address] 01-05-2025 11:37-0400 Body mass index (BMI) [Ratio] 28.2 kg/m2 Farzaneh Kt DO Work Phone: 9(295)303-691180 [place] [address] 01-05-2025 11:37-0400 Body weight 72.29 kg Farzaneh Kt DO Work Phone: 7(827)954-621680 [place] [address] 01-05-2025 11:37-0400 Diastolic blood pressure 86 mm[Hg] Farzaneh Kt DO Work Phone: 9(447)737-042880 [place] [address] 01-05-2025 11:37-0400 Systolic blood pressure 132 mm[Hg] Farzaneh Kt DO Work Phone: 9(138)474-278480 [place] [address] 12-29-2024 15:36-0400 Body height 160.02 cm Farzaneh Kt DO Work Phone: 9(193)393-180480 [place] [address] 12-29-2024 15:32-0400 Body mass index (BMI) [Ratio] 27.8 kg/m2 Farzaneh Kt DO Work Phone: 8(446)165-229280 [place] [address] 12-29-2024 15:32-0400 Body weight 71.44 kg Farzaneh Kt DO Work Phone: 3(339)627-447980 [place] [address] 12-29-2024 15:32-0400 Diastolic blood pressure 69 mm[Hg] Farzaneh Kt DO Work Phone: 6(737)096-681580 [place] [address] 12-29-2024 15:32-0400 Systolic blood pressure 121 mm[Hg] Farzaneh Kt DO Work Phone: 2(140)176-948280 [place] [address] 12-19-2024 14:13-0400 Body height 160.02 cm Farzaneh Kt DO Work Phone: 8(449)708-875210 [place] [address] 12-19-2024 14:110400 Body mass index (BMI) [Ratio] 27.5 kg/m2 Farzaneh Kt DO Work Phone: 0(603)259-374980 [place] [address] 12-19-2024 14:110400 Body weight 70.47 kg Farzaneh Kt DO Work Phone: 5(557)190-308080 [place] [address] 12-19-2024 14:110400 Diastolic blood pressure 71 mm[Hg] Farzaneh Kt DO Work Phone: 7(359)547-602380 [place] [address] 12-19-2024 14:110400 Systolic blood pressure 114 mm[Hg] Farzaneh Kt DO Work Phone: 0(249)525-595780 [place] [address] 12-09-2024 10:07-0400 Body height 160.02 cm Farzaneh Kt DO Work Phone: 6(800)177-010880 [place] [address] 12-09-2024 10:07-0400 Body mass index (BMI) [Ratio] 26.9 kg/m2 Farzaneh Kt DO Work Phone: 6(648)882-944080 [place] [address] 12-09-2024 10:07-0400 Body weight 68.94 kg Farzaneh Kt DO Work Phone: 5(817)009-503180 [place] [address] 12-09-2024 10:07-0400 Diastolic blood pressure 70 mm[Hg] Farzaneh Kt DO Work Phone: 6(391)080-635180 [place] [address] 12-09-2024 10:07-0400 Systolic blood pressure 113 mm[Hg] Farzaneh Kt DO Work Phone: 0(728)833-231180 [place] [address] 11-25-2024 10:04-0400 Body height 160.02 cm Farzaneh Kt DO Work Phone: 6(269)266-932380 [place] [address] 11-25-2024 10:04-0400 Body mass index (BMI) [Ratio] 25.9 kg/m2 Farzaneh Kt DO Work Phone: 1(053)793-919180 [place] [address] 11-25-2024 10:04-0400 Body weight 66.39 kg Farzaneh Kt DO Work Phone: [facility] 11-25-2024 10:04-0400 Diastolic blood pressure 69 mm[Hg] Farzaneh Kt DO Work Phone: 9(184)885-151880 [place] [address] 11-25-2024 10:04-0400 Systolic blood pressure 111 mm[Hg] Farzaneh Kt DO Work Phone: 3(402)196-320580 [place] [address] 11-16-2024 09:11-0400 Body mass index (BMI) [Ratio] 26.2 kg/m2 Farzaneh Kt DO Work Phone: 3(959)700-724680 [place] [address] 11-16-2024 09:11-0400 Body weight 67.18 kg Farzaneh Kt DO Work Phone: 3(660)707-933580 [place] [address] 11-16-2024 09:11-0400 Diastolic blood pressure 72 mm[Hg] Farzaneh Kt DO Work Phone: 7(323)982-758980 [place] [address] 11-16-2024 09:11-0400 Systolic blood pressure 117 mm[Hg] Farzaneh Kt DO Work Phone: 2(974)099-561880 [place] [address] 11-04-2024 15:31-0400 Body mass index (BMI) [Ratio] 26.5 kg/m2 Farzaneh Kt DO Work Phone: 7(002)344-606980 [place] [address] 11-04-2024 15:31-0400 Body weight 68.03 kg Farzaneh Kt DO Work Phone: 2(397)409-288180 [place] [address] 11-04-2024 15:31-0400 Diastolic blood pressure 70 mm[Hg] Farzaneh Kt DO Work Phone: 7(525)365-038380 [place] [address] 11-04-2024 15:31-0400 Heart rate 83 /min Farzaneh Kt DO Work Phone: 0(531)921-112280 [place] [address] 11-04-2024 15:31-0400 SaO2% (BldA) [Mass fraction] 97 % Farzaneh Kt DO Work Phone: 9(543)555-262380 [place] [address] 11-04-2024 15:31-0400 Systolic blood pressure 107 mm[Hg] Farzaneh Kt DO Work Phone: 2(738)586-556910 [place] [address] 10-26-2024 10:28-0400 Body height 160.02 cm Farzaneh Kt DO Work Phone: 5(964)710-486880 [place] [address] 10-26-2024 10:28-0400 Body mass index (BMI) [Ratio] 26.2 kg/m2 Farzaneh Kt DO Work Phone: 7(094)018-723180 [place] [address] 10-26-2024 10:28-0400 Body weight 67.13 kg Farzaneh Kt DO Work Phone: 9(238)338-363880 [place] [address] 10-26-2024 10:28-0400 Diastolic blood pressure 74 mm[Hg] Farzaneh Kt DO Work Phone: 3(110)221-869680 [place] [address] 10-26-2024 10:28-0400 Systolic blood pressure 114 mm[Hg] Farzaneh Kt DO Work Phone: 7(426)977-862980 [place] [address] 10-12-2024 10:56-0400 Body mass index (BMI) [Ratio] 25.5 kg/m2 Farzaneh Kt DO Work Phone: 4(257)370-343280 [place] [address] 10-12-2024 10:56-0400 Body weight 65.48 kg Farzaneh Kt DO Work Phone: 2(555)513-343580 [place] [address] 10-12-2024 10:56-0400 Diastolic blood pressure 77 mm[Hg] Farzaneh Kt DO Work Phone: 7(350)275-998680 [place] [address] 10-12-2024 10:56-0400 Systolic blood pressure 117 mm[Hg] Farzaneh Kt DO Work Phone: 1(888)201-463580 [place] [address] 09-30-2024 10:59-0400 Body mass index (BMI) [Ratio] 24.7 kg/m2 Farzaneh Kt DO Work Phone: 3(645)715-189380 [place] [address] 09-30-2024 10:59-0400 Body weight 63.5 kg Farzaneh Kt DO Work Phone: 5(420)134-033580 [place] [address] 09-30-2024 10:59-0400 Diastolic blood pressure 69 mm[Hg] Farzaneh Kt DO Work Phone: 3(533)593-625080 [place] [address] 09-30-2024 10:59-0400 Systolic blood pressure 108 mm[Hg] Farzaneh Kt DO Work Phone: 6(565)194-727980 [place] [address] 09-16-2024 11:23-0500 Body mass index (BMI) [Ratio] 24.6 kg/m2 Farzaneh Kt DO Work Phone: 5(966)388-683480 [place] [address] 09-16-2024 11:23-0500 Body weight 63.04 kg Farzaneh Kt DO Work Phone: 5(887)931-773380 [place] [address] 09-16-2024 11:23-0500 Diastolic blood pressure 74 mm[Hg] Farzaneh Kt DO Work Phone: 2(154)603-124080 [place] [address] 09-16-2024 11:23-0500 Systolic blood pressure 124 mm[Hg] Farzaneh Kt DO Work Phone: 1(727)628-705380 [place] [address] 08-17-2024 14:58-0500 Body height 160.02 cm Farzaneh Kt DO Work Phone: 9(541)605-181180 [place] [address] 08-17-2024 14:58-0500 Body mass index (BMI) [Ratio] 23.6 kg/m2 Farzaneh Kt DO Work Phone: 7(230)044-416780 [place] [address] 08-17-2024 14:58-0500 Body weight 60.44 kg Farzaneh Kt DO Work Phone: 7(352)989-570180 [place] [address] 08-17-2024 14:58-0500 Diastolic blood pressure 62 mm[Hg] Farzaneh Kt DO Work Phone: 7(814)544-389680 [place] [address] 08-17-2024 14:58-0500 Systolic blood pressure 110 mm[Hg] Farzaneh Kt DO Work Phone: 6(212)133-098480 [place] [address] 08-01-2024 13:32-0500 Body mass index (BMI) [Ratio] 23.2 kg/m2 Farzaneh Kt DO Work Phone: 0(948)492-581980 [place] [address] 08-01-2024 13:32-0500 Body weight 59.42 kg Farzaneh Kt DO Work Phone: 3(789)356-068780 [place] [address] 08-01-2024 13:32-0500 Diastolic blood pressure 80 mm[Hg] Farzaneh Kt DO Work Phone: 4(598)894-723780 [place] [address] 08-01-2024 13:32-0500 Systolic blood pressure 129 mm[Hg] Farzaneh Kt DO Work Phone: 2(771)831-434680 [place] [address] 07-20-2024 15:37-0500 Body mass index (BMI) [Ratio] 22.7 kg/m2 Farzaneh Kt DO Work Phone: 2(979)737-045880 [place] [address] 07-20-2024 15:37-0500 Body weight 58.28 kg Farzaneh Kt DO Work Phone: 7(270)084-771180 [place] [address] 07-20-2024 15:37-0500 Diastolic blood pressure 74 mm[Hg] Farzaneh Kt DO Work Phone: 9(752)824-303880 [place] [address] 07-20-2024 15:37-0500 Systolic blood pressure 112 mm[Hg] Farzaneh Kt DO Work Phone: 7(557)592-787580 [place] [address] 06-29-2024 10:18-0500 Body mass index (BMI) [Ratio] 22.4 kg/m2 Farzaneh Kt DO Work Phone: 5(743)070-221080 [place] [address] 06-29-2024 10:18-0500 Body weight 57.6 kg Farzaneh Kt DO Work Phone: 8(791)640-911280 [place] [address] 06-29-2024 10:18-0500 Diastolic blood pressure 78 mm[Hg] Farzaneh Kt DO Work Phone: 2(752)370-374680 [place] [address] 06-29-2024 10:18-0500 Systolic blood pressure 121 mm[Hg] Farzaneh Kt DO Work Phone: 0(289)980-696280 [place] [address] 06-17-2024 08:47-0500 Body mass index (BMI) [Ratio] 22.7 kg/m2 Farzaneh Kt DO Work Phone: 6(512)922-409680 [place] [address] 06-17-2024 08:47-0500 Body weight 58.17 kg Farzaneh Meraz DO Work Phone: [facility] 06-17-2024 08:47-0500 Diastolic blood pressure 84 mm[Hg] Farzaneh Martinezer DO Work Phone: [facility] 06-17-2024 08:47-0500 Systolic blood pressure 127 mm[Hg] Farzaneh Martinezer DO Work Phone: [facility] 09-24-2023 07:38-0400 Body height 160.[address] Warren Melendez Work Phone: [facility] 09-24-2023 07:35-0400 Body mass index (BMI) [Ratio] 22.8 kg/m2 Dr. Warren Melendez Work Phone: [facility] 09-24-2023 07:35-0400 Body weight 58.[address] Warren Melendez Work Phone: [facility] 09-24-2023 07:35-0400 Diastolic blood pressure 71 mm[Hg] Dr. Warren Melendez Work Phone: [facility] 09-24-2023 07:35-0400 Systolic blood pressure 111 mm[Hg] Dr. Warren Melendez Work Phone: [facility] 09-10-2023 07:52-0500 Body mass index (BMI) [Ratio] 23.7 kg/m2 Dr. Warren Melendez Work Phone: [facility] 09-10-2023 07:52-0500 Body weight 60.[address] Warren Melendez Work Phone: [facility] 09-10-2023 07:52-0500 Diastolic blood pressure 76 mm[Hg] Dr. Warren Melendez Work Phone: [facility] 09-10-2023 07:52-0500 Systolic blood pressure 114 mm[Hg] Dr. Warren Melendez Work Phone: [facility] 10-30-2022 10:29-0400 Body height 160.[address] Warren Melendez Work Phone: [facility] 10-30-2022 10:29-0400 Body mass index (BMI) [Ratio] 24.8 kg/m2 Dr. Warren Melendez Work Phone: [facility] 10-30-2022 10:29-0400 Body temperature 98.1 [degF] Dr. Warren Melendez Work Phone: [facility] 10-30-2022 10:29-0400 Body weight 63.[address] Warren Melendez Work Phone: [facility] 10-30-2022 10:29-0400 Diastolic blood pressure 79 mm[Hg] Dr. Warren Melendez Work Phone: [facility] 10-30-2022 10:29-0400 Heart rate 69 /min Dr. Warren Melendez Work Phone: [facility] 10-30-2022 10:29-0400 Respiratory rate 16 /min Dr. Warren Melendez Work Phone: [facility] 10-30-2022 10:29-0400 SaO2% (BldA) [Mass fraction] 85 % Dr. Warren Melendez Work Phone: [facility] 10-30-2022 10:29-0400 Systolic blood pressure 126 mm[Hg] Dr. Warren Melendez Work Phone: [facility] 08-20-2022 09:30-0500 Body mass index (BMI) [Ratio] 25 kg/m2 Dr. Warren Melendez Work Phone: [facility] 08-20-2022 09:30-0500 Body weight 64.[address] Warren Melendez Work Phone: [facility] 08-20-2022 09:30-0500 Diastolic blood pressure 86 mm[Hg] Dr. Warren Melendez Work Phone: [facility] 08-20-2022 09:30-0500 Systolic blood pressure 122 mm[Hg] Dr. Warren Melendez Work Phone: [facility] 07-11-2022 14:01-0500 Diastolic blood pressure 84 mm[Hg] Dr. Warren Melendez Work Phone: [facility] 07-11-2022 14:01-0500 Heart rate 85 /min Dr. Warren Melendez Work Phone: [facility] 07-11-2022 14:01-0500 SaO2% (BldA) [Mass fraction] 99 % Dr. Warren Melendez Work Phone: [facility] 07-11-2022 14:01-0500 Systolic blood pressure 128 mm[Hg] Dr. Warren Melendez Work Phone: [facility] 07-11-2022 14:00-0500 Body temperature 98.2 [degF] Dr. Warren Melendez Work Phone: [facility] 07-11-2022 14:00-0500 Respiratory rate 15 /min Dr. Warren Melendez Work Phone: [facility] 07-09-2022 18:59-0500 Body height 160.[address] Warren Melendez Work Phone: [facility] Work Phone: 07-09-2022 18:59-0500 Body mass index (BMI) [Ratio] 28.5 kg/m2 Dr. Warren Melendez Work Phone: [facility] 07-09-2022 18:59-0500 Body weight 73.[address] Warren Melendez Work Phone: [facility] 07-03-2022 11:06-0500 Body mass index (BMI) [Ratio] 28.5 kg/m2 Dr. Warren Melendez Work Phone: [facility] Work Phone: 07-03-2022 11:06-0500 Body weight 73.[address] Warren Melendez Work Phone: [facility] Work Phone: 07-03-2022 11:06-0500 Diastolic blood pressure 76 mm[Hg] Dr. Warren Melendez Work Phone: [facility] Work Phone: 07-03-2022 11:06-0500 Systolic blood pressure 118 mm[Hg] Dr. Warren Melendez Work Phone: [facility] Work Phone: 06-27-2022 11:02-0500 Body height 160.[address] Warren Melendez Work Phone: [facility] Work Phone: 06-27-2022 11:01-0500 Body mass index (BMI) [Ratio] 28.5 kg/m2 Dr. Warren Melendez Work Phone: [facility] Work Phone: 06-27-2022 11:01-0500 Body weight 73.[address] Warren Melendez Work Phone: [facility] Work Phone: 06-27-2022 11:01-0500 Diastolic blood pressure 77 mm[Hg] Dr. Warren Melendez Work Phone: [facility] Work Phone: 06-27-2022 11:01-0500 Systolic blood pressure 126 mm[Hg] Dr. Warren Melendez Work Phone: [facility] Work Phone: 06-16-2022 09:13-0500 Body mass index (BMI) [Ratio] 28.3 kg/m2 Dr. Warren Melendez Work Phone: [facility] Work Phone: 06-16-2022 09:13-0500 Body weight 72.[address] Warren Melendez Work Phone: [facility] Work Phone: 06-16-2022 09:13-0500 Diastolic blood pressure 62 mm[Hg] Dr. Warren Melendez Work Phone: [facility] Work Phone: 06-16-2022 09:13-0500 Systolic blood pressure 124 mm[Hg] Dr. Warren Melendez Work Phone: [facility] Work Phone: 06-02-2022 09:04-0500 Body mass index (BMI) [Ratio] 27.6 kg/m2 Dr. Warren Melendez Work Phone: [facility] Work Phone: 06-02-2022 09:04-0500 Body weight 70.[address] Warren Melendez Work Phone: [facility] Work Phone: 06-02-2022 09:04-0500 Diastolic blood pressure 76 mm[Hg] Dr. Warren Melendez Work Phone: [facility] Work Phone: 06-02-2022 09:04-0500 Systolic blood pressure 132 mm[Hg] Dr. Warren Melendez Work Phone: [facility] Work Phone: 05-23-2022 09:27-0500 Body height 160.[address] Warren Melendez Work Phone: [facility] Work Phone: 05-23-2022 09:26-0500 Body mass index (BMI) [Ratio] 27.6 kg/m2 Dr. Warren Melendez Work Phone: [facility] Work Phone: 05-23-2022 09:26-0500 Body weight 70.[address] Warren Melendez Work Phone: [facility] Work Phone: 05-23-2022 09:26-0500 Diastolic blood pressure 69 mm[Hg] Dr. Warren Melendez Work Phone: [facility] Work Phone: 05-23-2022 09:26-0500 Systolic blood pressure 120 mm[Hg] Dr. Warren Melendez Work Phone: [facility] Work Phone: 05-09-2022 11:42-0400 Body mass index (BMI) [Ratio] 26.9 kg/m2 Dr. Warren Melendez Work Phone: [facility] Work Phone: 05-09-2022 11:42-0400 Body weight 68.[address] Warren Melendez Work Phone: [facility] Work Phone: 05-09-2022 11:42-0400 Diastolic blood pressure 60 mm[Hg] Dr. Warren Melendez Work Phone: [facility] Work Phone: 05-09-2022 11:42-0400 Systolic blood pressure 118 mm[Hg] Dr. Warren Melendez Work Phone: [facility] Work Phone: 04-21-2022 10:45-0400 Body height 160.[address] Warren Melendez Work Phone: [facility] Work Phone: 04-21-2022 10:45-0400 Body mass index (BMI) [Ratio] 26.1 kg/m2 Dr. Warren Melendez Work Phone: [facility] Work Phone: 04-21-2022 10:45-0400 Body weight 66.[address] Warren Melendez Work Phone: [facility] Work Phone: 04-21-2022 10:45-0400 Diastolic blood pressure 78 mm[Hg] Dr. Warren Melendez Work Phone: [facility] Work Phone: 04-21-2022 10:45-0400 Systolic blood pressure 124 mm[Hg] Dr. Warren Melendez Work Phone: [facility] Work Phone: 03-25-2022 15:42-0400 Body mass index (BMI) [Ratio] 25 kg/m2 Dr. Warren Melendez Work Phone: [facility] Work Phone: 03-25-2022 15:42-0400 Body weight 63.[address] Warren Melendez Work Phone: [facility] Work Phone: 03-25-2022 15:42-0400 Diastolic blood pressure 69 mm[Hg] Dr. Warren Melendez Work Phone: [facility] Work Phone: 03-25-2022 15:42-0400 Systolic blood pressure 111 mm[Hg] Dr. Warren Melendez Work Phone: [facility] Work Phone: 02-24-2022 10:51-0400 Body mass index (BMI) [Ratio] 23.3 kg/m2 Dr. Warren Melendez Work Phone: [facility] Work Phone: 02-24-2022 10:51-0400 Body weight 59.[address] Warren Melendez Work Phone: [facility] Work Phone: 02-24-2022 10:51-0400 Diastolic blood pressure 69 mm[Hg] Dr. Warren Melendez Work Phone: [facility] Work Phone: 02-24-2022 10:51-0400 Systolic blood pressure 110 mm[Hg] Dr. Warren Melendez Work Phone: [facility] Work Phone: 01-28-2022 09:31-0400 Body mass index (BMI) [Ratio] 22 kg/m2 Dr. Warren Melendez Work Phone: [facility] Work Phone: 01-28-2022 09:31-0400 Body weight 56.[address] Warren Melendez Work Phone: [facility] Work Phone: 01-28-2022 09:31-0400 Diastolic blood pressure 60 mm[Hg] Dr. Warren Melendez Work Phone: [facility] Work Phone: 01-28-2022 09:31-0400 Systolic blood pressure 118 mm[Hg] Dr. Warren Melendez Work Phone: [facility] Work Phone: 01-08-2022 09:38-0400 Body height 160.[address] Warren Mleendez Work Phone: [facility] Work Phone: 01-08-2022 08:09-0400 Body mass index (BMI) [Ratio] 21.4 kg/m2 Dr. Warren Melendez Work Phone: [facility] Work Phone: 01-08-2022 08:09-0400 Body weight 54.[address] Warren Melendez Work Phone: [facility] Work Phone: 01-08-2022 08:09-0400 Diastolic blood pressure 60 mm[Hg] Dr. Warren Melendez Work Phone: [facility] Work Phone: 01-08-2022 08:09-0400 Systolic blood pressure 110 mm[Hg] Dr. Warren Melendez Work Phone: [facility] Work Phone: 01-01-2022 10:34-0400 Body mass index (BMI) [Ratio] 21.2 kg/m2 Dr. Warren Melendez Work Phone: [facility] Work Phone: 01-01-2022 10:34-0400 Body weight 54.[address] Warren Melendez Work Phone: [facility] Work Phone: 01-01-2022 10:34-0400 Diastolic blood pressure 82 mm[Hg] Dr. Warren Melendez Work Phone: [facility] Work Phone: 01-01-2022 10:34-0400 Systolic blood pressure 120 mm[Hg] Dr. Warren Melendez Work Phone: [facility] Work Phone: 12-05-2021 14:30-0400 Diastolic blood pressure 68 mm[Hg] Dr. Warren Melendez Work Phone: [facility] Work Phone: 12-05-2021 14:30-0400 Systolic blood pressure 112 mm[Hg] Dr. Warren Melendez Work Phone: [facility] Work Phone: 12-05-2021 14:30-0400 Diastolic blood pressure 68 mm[Hg] Dr. Warren Melendez Work Phone: [facility] Work Phone: 12-05-2021 14:30-0400 Systolic blood pressure 112 mm[Hg] Dr. Warren Melendez Work Phone: [facility] Work Phone: 12-05-2021 14:01-0400 Body mass index (BMI) [Ratio] 21.4 kg/m2 Dr. Warren Melendez Work Phone: [facility] Work Phone: 12-05-2021 14:01-0400 Body weight 54.[address] Warren Melendez Work Phone: [facility] Work Phone: 12-05-2021 14:01-0400 Body height 160.[address] Warren Melendez Work Phone: [facility] Work Phone: 12-05-2021 14:01-0400 Body mass index (BMI) [Ratio] 21.4 kg/m2 Dr. Warren Melendez Work Phone: [facility] Work Phone: 12-05-2021 14:01-0400 Body weight 54.[address] Warren Melendez Work Phone: [facility] Work Phone: 04-23-2017 13:41-0400 BP Diastolic 78 mm[Hg] Padma Lopez [facility] Work Phone: 04-23-2017 13:41-0400 BP Systolic 128 mm[Hg] Padma Lopez [facility] Work Phone: 04-23-2017 13:41-0400 Pulse (Heart Rate) 94 /min Padma Lopez [facility] Work Phone: 04-23-2017 13:41-0400 Weight 51.71 kg Padma Lopez [facility] Work Phone: Encounters Encounter Date Encounter Type Care Provider Facility Start: 01-19-2025 ambulatory Farzaneh Kt VSC Faci lity:[facility] Start: 01-12-2025 End: 01-12-[address] Pam Koo MD -[facility] Work Phone: Start: 01-12-2025 End: 01-12-2025 ambulatory Farzaneh Kt DO Work Phone: -[facility] Start: 01-05-2025 End: 01-05-[address] Pam Koo MD -[facility] Work Phone: Start: 01-05-2025 End: 01-05-2025 ambulatory Farzaneh Kt DO Work Phone: [facility] Work Phone: Start: 12-29-2024 End: 12-29-2024 ambulatory Farzaneh Kt DO Work Phone: [facility] Work Phone: Start: 12-29-2024 End: 12-29-2024 Patient encounter procedure Reshma Driscoll CNM -Laboratory Specimen Work Phone: Start: 12-29-2024 End: 12-29-2024 Patient encounter procedure Reshma Driscoll CNM -[facility] Work Phone: Start: 12-29-2024 End: 12-29-2024 ambulatory Farzaneh Kt DO Work Phone: [facility] Work Phone: Start: 12-29-2024 End: 12-29-2024 ambulatory Farzanhe Kt VSC Facility:[facility] Start: 12-23-2024 End: 12-23-2024 ambulatory Farzaneh Kt DO Work Phone: [facility] Work Phone: Start: 12-23-2024 End: 12-23-2024 Patient encounter procedure Justina Guido CNM -[facility] Work Phone: Start: 12-23-2024 End: 12-23-2024 ambulatory Farzaneh Kt VSC Facility:[facility] Start: 12-19-2024 End: 12-19-[address] Keshia Galvez DO -[facility] Work Phone: Start: 12-19-2024 End: 12-19-2024 ambulatory Farzaneh Kt DO Work Phone: [facility] Work Phone: Start: 12-19-2024 End: 12-19-2024 ambulatory Farzaneh Kt VSC Facility:[facility] Start: 12-09-2024 End: 12-09-2024 Patient encounter procedure Justina Guido CNM -[facility] Work Phone: Start: 12-09-2024 End: 12-09-2024 ambulatory Farzaneh Kt DO Work Phone: [facility] Work Phone: Start: 11-25-2024 End: 11-25-[address] Pam Koo MD -[facility] Work Phone: Start: 11-25-2024 End: 11-25-2024 ambulatory Farzaneh Kt DO Work Phone: [facility] Work Phone: Start: 11-16-2024 End: 11-16-[address] Pam Koo MD -[facility] Work Phone: Start: 11-16-2024 End: 11-16-2024 ambulatory Pam Koo Facility:[facility] Start: 11-04-2024 End: 11-04-[address] Moises Mazariegos MD -[facility] Work Phone: Start: 11-04-2024 End: 11-04-2024 ambulatory Farzaneh Kt VSC Facility:[facility] Start: 10-28-2024 End: 10-28-2024 ambulatory Farzaneh Kt DO Work Phone: [facility] Work Phone: Start: 10-28-2024 End: 10-28-[address] Pam Koo MD -Laboratory Work Phone: Start: 10-28-2024 End: 10-28-2024 ambulatory Pam Koo Facility:[facility] Start: 10-26-2024 End: 10-26-[address] Pam Koo MD -[facility] Work Phone: Start: 10-26-2024 End: 10-26-2024 ambulatory Pam Koo Facility:[facility] Start: 10-26-2024 End: 10-26-2024 ambulatory Farzaneh Kt VSC Facility:[facility] Start: 10-12-2024 End: 10-12-[address] Pam Koo MD -[facility] Work Phone: Start: 10-12-2024 End: 10-12-2024 ambulatory Pam Koo Facility:[facility] Start: 09-30-2024 End: 09-30-2024 Patient encounter procedure Justina Guido CNM -[facility] Work Phone: Start: 09-30-2024 End: 09-30-2024 ambulatory Farzaneh Kt VSC Facility:[facility] Start: 09-16-2024 End: 09-16-2024 Patient encounter procedure Reshma Driscoll CNM -[facility] Work Phone: Start: 09-16-2024 End: 09-16-2024 ambulatory Farzaneh Kt VSC Facility:[facility] Start: 09-05-2024 End: 09-05-2024 ambulatory Farzaneh Kt DO Work Phone: [facility] Work Phone: Start: 09-05-2024 End: 09-05-2024 Patient encounter procedure Reshma COVINGTON -[facility], [facility] Start: 09-05-2024 End: 09-05-2024 ambulatory Farzaneh Kt VSC Facility:[facility] Start: 09-02-2024 End: 09-02-2024 ambulatory Farzaneh Kt DO Work Phone: [facility] Work Phone: Start: 09-02-2024 End: 09-02-[address] Pam Koo MD -Ultrasound, [facility] Work Phone: Start: 09-02-2024 End: 09-02-2024 ambulatory Farzaneh Kt VSC Facility:[facility] Start: 08-17-2024 End: 08-17-2024 Patient encounter procedure Caroline ROSALES -[facility] Work Phone: Start: 08-17-2024 End: 08-17-2024 ambulatory Farzaneh Kt VSC [facility] Start: 08-17-2024 End: 08-17-2024 ambulatory Farzaneh Kt VSC Facility:[facility] Start: 08-01-2024 End: 08-01-2024 Patient encounter procedure Reshma COVINGTON -[facility] Work Phone: Start: 08-01-2024 End: 08-01-2024 ambulatory Farzaneh Kt VSC Facility:[facility] Start: 07-20-2024 End: 07-20-2024 Patient encounter procedure Caroline ROSALES -[facility] Work Phone: Start: 07-20-2024 End: 07-20-2024 ambulatory Farzaneh Kt VSC Facility:[facility] Start: 07-01-2024 End: 07-01-2024 ambulatory WARREN MELENDEZ [facility] Start: 06-29-2024 End: 06-29-[address] Pam Koo MD -[facility] Work Phone: Start: 06-29-2024 End: 06-29-2024 ambulatory Farzaneh Kt VSC Facility:[facility] Start: 06-17-2024 End: 06-17-2024 Patient encounter procedure Justina COVINGTONM -[facility] Work Phone: Start: 06-17-2024 End: 06-17-2024 ambulatory Farzaneh Kt VSC [facility] Start: 06-17-2024 End: 06-17-2024 ambulatory Farzaneh Kt VSC Facility:[facility] Start: 05-25-2024 End: 05-25-2024 Patient encounter procedure Justina Guido CNM -Laboratory Work Phone: Start: 05-25-2024 End: 05-25-2024 ambulatory Farzaneh Kt VSC Facility:[facility] Start: 05-23-2024 End: 05-23-2024 Patient encounter procedure Justina Guido CNM -Laboratory Work Phone: Start: 05-23-2024 End: 05-23-2024 ambulatory Farzaneh Kt VSC Facility:[facility] Start: 05-04-2024 End: 05-04-2024 ambulatory Farzaneh Kt VSC Facility:[facility] Start: 01-29-2024 End: 01-29-2024 ambulatory Warren Melendez Facility:[facility] Start: 09-25-2023 End: 09-25-[address] Warren Melendez Work Phone: [facility] Work Phone: Start: 09-25-2023 End: 09-25-[address] Warren Melendez Work Phone: [facility]-Laboratory, Specimen Work Phone: Start: 09-24-2023 End: 09-24-[address] Warren Melendez Work Phone: [facility] @ Start: 09-21-2023 End: 09-21-[address] Warren Melendez Work Phone: [facility] Work Phone: Start: 09-21-2023 End: 09-21-[address] [facility] Start: 09-10-2023 End: 09-10-[address] Warren Melendez Work Phone: [facility] @ Start: 08-17-2023 End: 08-17-2023 ambulatory [facility] Work Phone: Start: 08-17-2023 End: 08-17-2023 Patient encounter procedure [facility] Work Phone: Start: 08-03-2023 End: 08-03-2023 Patient encounter procedure [facility] Work Phone: Start: 07-29-2023 End: 07-29-2023 ambulatory [facility] Work Phone: Start: 07-29-2023 End: 07-29-2023 Patient encounter procedure [facility] Work Phone: Start: 07-27-2023 End: 07-27-2023 ambulatory [facility] Work Phone: Start: 07-27-2023 End: 07-27-2023 [facility] Start: 05-25-2023 End: 05-25-2023 Patient encounter procedure [facility] Work Phone: Start: 10-30-2022 End: 10-30-[address] Warren Melendez Work Phone: [facility] Start: 10-24-2022 End: 10-24-[address] Warren Melendez Work Phone: [facility] Work Phone: Start: 10-24-2022 End: 10-24-[address] Warren Melendez Work Phone: [facility]Labor[facility] Start: 08-20-2022 End: 08-20-[address] Warren Melendez Work Phone: [facility] Start: 07-11-2022 Non-patient / Non-visit Dr. Warren Melendez Work Phone: [facility] Start: 07-10-2022 Non-patient / Non-visit Dr. Warren Melendez Work Phone: [facility] Start: 07-09-2022 Non-patient / Non-visit Dr. Warren Melendez Work Phone: [facility] Start: 07-09-2022 End: 07-11-2022 Evaluation and management of inpatient [facility] Start: 07-03-2022 End: 07-03-[address] Warren Melendez Work Phone: [facility] Start: 06-27-2022 End: 06-27-[address] Warren Melendez Work Phone: [facility] Start: 06-20-2022 End: 06-20-[address] Warren Melendez Work Phone: [facility] Work Phone: Start: 06-20-2022 End: 06-20-[address] Warren Melendez Work Phone: [facility] Start: 06-16-2022 End: 06-16-[address] Warren Melendez Work Phone: [facility] Start: 06-02-2022 End: 06-02-[address] Warren Melendez Work Phone: [facility] Start: 05-23-2022 End: 05-23-[address] Warren Melendez Work Phone: [facility] Start: 05-23-2022 End: 05-23-[address] Warren Melendez Work Phone: [facility] Work Phone: Start: 05-23-2022 End: 05-23-[address] Warren Melendez Work Phone: [facility] Start: 05-09-2022 End: 05-09-[address] Warren Melendez Work Phone: [facility] Start: 04-21-2022 End: 04-21-[address] Warren Melendez Work Phone: [facility] Work Phone: Start: 04-21-2022 End: 04-21-[address] Warren Melendez Work Phone: [facility] Start: 03-25-2022 End: 03-25-[address] Warren Melendez Work Phone: [facility] Start: 02-24-2022 End: 02-24-[address] Warren Melendez Work Phone: [facility] Start: 01-28-2022 End: 01-28-[address] Warren Melendez Work Phone: [facility] Start: 01-08-2022 End: 01-08-[address] Warern Melendez [facility] Start: 01-08-2022 End: 01-08-[address] Warren Melendez Work Phone: [facility] Start: 01-01-2022 End: 01-01-[address] Warren Melendez Work Phone: [facility] Start: 12-06-2021 End: 12-06-[address] [facility] Start: 12-05-2021 End: 12-05-[address] Warren Melendez Work Phone: [facility] Start: 11-19-2021 End: 11-19-2021 [facility] Start: 11-07-2021 End: 11-07-[address] Warren Melendez Work Phone: [facility] Therapy Start: 11-07-2021 Registered Recurring [facility] Start: 10-07-2021 End: 10-07-2021 [facility] Start: 09-11-2021 End: 09-11-2021 Patient encounter procedure [facility] Start: 08-22-2021 Registered Recurring [facility] Start: 08-09-2021 End: 08-09-2021 Patient encounter procedure [facility] [facility] Start: 10-30-2017 End: 10-30-2017 Ambulatory OPAL COOMBS [facility] Start: 08-18-2017 End: 08-18-2017 Ambulatory [facility] Start: 06-03-2017 Ambulatory DARREN THOMSONJeff REYES Facility:[facility] Start: 04-23-2017 End: 04-23-2017 Ambulatory PADMA LOPEZ [facility] Start: 04-23-2017 Office outpatient visit 15 minutes Padma Lopez Work Phone: [facility] Start: 03-18-2017 End: 03-18-2017 Ambulatory ADRIÁN FLYNN Facility:[facility] Start: 02-06-2017 End: 02-06-2017 Ambulatory [facility] Start: 01-23-2017 End: 01-23-2017 Ambulatory VICTOR M CHERYLALEXY [facility] Start: 01-23-2017 End: 01-23-2017 Ambulatory [facility] Start: 01-19-2017 End: 01-19-2017 Ambulatory [facility] Procedures Date Procedure Procedure Detail Performing Clinician Start: 12-29-2024 Beta-hemolytic Strep tococcus culture Farzanehwilfrid Meraz DO Work Phone: Start: 12-23-2024 Ultrasound scan for growth Farzaneh Meraz DO Work Phone: Start: 10-26-2024 Serologic test for syphilis Farzanehwilfrid Meraz DO Work Phone: Start: 09-05-2024 Procedure [...] ure, preparation of smear, genital source Dr. Wraren Melendez Work Phone: Investigation of tra nsfusion reaction Dr. Warren Melendez Work Phone: Urine culture Dr. Warren sandhu Work Phone: Plan of Treatment Date Care Activity Detail Author Start: 12-23-2024 Ultrasound scan for growth [facility] Start: 07-11-2022 Patient discharge [facility] Start: 07-10-2022 End: 07-11-2022 [facility] Start: 07-10-2022 Administration of medication [facility] Start: 07-10-2022 Application of ice collar, cap or bag [facility] Start: 07-10-2022 Catheterization of vein [facility] Start: 07-10-2022 Introduction of urinary catheter [facility] Start: 07-10-2022 Measuring intake and output [facility] Start: 07-10-2022 Notification of physician [facility] Start: 07-10-2022 Procedure discontinued [facility] Start: 07-10-2022 Provision of activity privileges [facility] Start: 07-10-2022 Vital signs measurements [facility] Start: 07-09-2022 Admission procedure [facility] Start: 07-03-2019 Screening for malignant neoplasm of cervix PAP SMEAR [facility] Work Phone: Start: 03-13-2017 Influenza vaccination SEQUENTIAL INFLUENZA VACCINE (#1) [facility] Work Phone: Start: 2004 Vaccination for human papillomavirus HPV VACCINES (1 of 3 - Female 3 Dose Series) [facility] Work Phone: Start: 1993 Tetanus vaccination TETANUS EVERY 10 YR [facility] Work Phone: Liquid based cervica l cytology screening [facility] Patient referral [facility] Work Phone: Streptococcus agalac tiae [Presence] in Unspecified specimen by Organism specific culture [facility] T4 free measurement [facility] Thyroid stimulating hormone measurement [facility] Ultrasound scan for growth [facility] Work Phone: Ultrasound scan for growth [facility] Immunizations Immunization Date Immunization Notes Care Provider Fa cility 04-02-2020 Diptheria,Tetanus,Pe rtuss is Vaccine [facility] 02-09-2020 tetanus toxoid, redu patt diphtheria toxoid, and acellular pertussis vaccine, adsorbed [facility] 02-09-2020 diphtheria, tetanus toxoids and acellular pertussis vaccine, unspecified formulation [facility] Work Phone: Payers Date Payer Category Payer Unknown [id number] 2024 Self-pay [id number] 2023 Unknown [id number] 2023 Unknown [id number] 2017 Unknown [id number] 2016 Private Health Insurance [id number] 2013 Unknown 2013 Medicaid [id number] 2012 Unknown [id number] 1993 Unknown [id number] 2.16. 840.1.101452.3.579.2.479 1993 Unknown [id number] 2.16. 840.1.902056.3.579.2.479 Unknown [id number] Unknown [id number] 2.16.8 40.1.299736.3.579.2.462 Unknown [id number] 2.16.8 40.1.668812.3.579.2.462 Unknown [id number] 2.16.8 40.1.327731.3.579.2.462 Unknown [id number] 2.16.8 40.1.791460.3.579.2.462 Unknown [id number] 2.16.8 40.1.879146.3.579.2.462 Unknown [id number] 2.16.8 40.1.893275.3.579.2.462 Unknown [id number] 2.16.8 40.1.747987.3.579.2.462 Unknown [id number] 2.16.8 40.1.806236.3.579.2.462 Unknown [id number] 2.16.8 40.1.276101.3.579.2.462 Unknown [id number] 2.16.8 40.1.790469.3.579.2.462 Unknown [id number] 2.16.8 40.1.411908.3.579.2.462 Unknown [id number] 2.16.8 40.1.567833.3.579.2.462 Unknown [id number] 2.16.8 40.1.003748.3.579.2.462 Unknown [id number] 2.16.8 40.1.695373.3.579.2.462 Unknown [id number] 2.16.8 40.1.146488.3.579.2.462 Unknown [id number] 2.16.8 40.1.900156.3.579.2.462 Unknown [id number] 2.16.8 40.1.199066.3.579.2.462 Unknown [id number] 2.16.8 40.1.564240.3.579.2.462 Unknown [id number] 2.16.8 40.1.312831.3.579.2.462 Unknown [id number] 2.16.8 40.1.788645.3.579.2.462 Unknown [id number] 2.16.8 40.1.242078.3.579.2.462 Unknown [id number] 2.16.8 40.1.640862.3.579.2.462 Unknown [id number] 2.16.8 40.1.410841.3.579.2.462 Unknown [id number] 2.16.8 40.1.362165.3.579.2.462 Unknown [id number] 2.16.8 40.1.864907.3.579.2.462 Unknown [id number] 2.16.8 40.1.640832.3.579.2.462 Unknown [id number] 2.16.8 40.1.060677.3.579.2.462 Unknown [id number] 2.16.8 40.1.484832.3.579.2.462 Unknown [id number] 2.16.8 40.1.930934.3.579.2.462 Unknown [id number] 2.16.8 40.1.485401.3.579.2.462 Unknown [id number] 2.16.8 40.1.606692.3.579.2.462 Social History Date Type Detail Facility Start: 04-23-2017 End: 01-12-2025 Tobacco smoking status TNIS Never smoker [facility] Sex Assigned At Not on file [employer] Phone: Start: 06-17-2021 End: 09-24-2023 Tobacco smoking status [facility] Unknown if ever smoked [facility] Start: 03-14-2020 Non-smoker [facility] Start: 1995 Sex Assigned At Female [facility] Start: 09-15-2024 End: 11-02-2024 Sex Female (finding) [facility] Medical Equipment Procedure Code Equipment Code Equipment [...] Desired Activity /State Clinical Notes 09-25-2023 to 01-05-2025 Note Date & Type Note Facility 01-05-2025 Progress note [facility] 12-29-2024 Progress note [facility] 12-29-2024 Progress note Note Date/Time December 29, 2024 3:53pm [facility] [address], [address] [place] [address] OFFICE VISIT Date of Service: 12/29/24 MR#: [id number] Acct: [id number] Name: ELCECYCHANTELLE DASH Rep #: [id number] : 1995 Provider: CARON Driscoll Age/Sex: 29/F [facility] [facility] Status: Signed Intake Vital Signs 11/16/24 09:19 12/19/24 14:13 12/29/24 15:32 12/29/24 15:36 Height 5 ft 3 in 5 ft 3 in 5 ft 3 in 5 ft 3 in Weight: 157 lb 8 oz BMI 27.8 BP 121/69 H Intake Visit Reasons: 37 wk ob Chief 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: 37 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 Is patient in pain?: No Allergies banana Allergy (Mild, Verified 12/29/24 15:31) RASH Latex, Natural Rubber Allergy (Mild, Verified 12/29/24 15:31) Rash Medications ?Medication ?Instructions ?Recorded ?Confirmed ?Type vitamin#30 30 mg iron-10 1 cap PO DAILY pregn irene 04/07/19 12/29/24 History mg iron-folic acid 1 mg-omg3 capsule aspirin 81 mg tablet,delayed 81 mg PO DAILY 12/22/23 0 12/29/24 History release (Adult Aspirin Regimen) blood sugar diagnostic (Blood #120 ea 10/28/24 5 Rx Glucose Test strips) blood-glucose meter #1 ea 10/28/24 12/29/24 Rx lancets 30 gauge (Droplet Lancets) #200 ea 10/28/24 Rx metformin 500 mg tablet 500 mg PO QDAY #30 tabs /12/0412/29/24 Rx levothyroxine 50 mcg tablet 50 mcg PO DAILY #90 tabs 0 12/06/24 12/29/24 Rx Last Menstrual Period: 04/15/24 Zika: Zika [...] 1-2 times per week duration: 15-30 minutes/day femi/tenriism: Pentecostalism seatbelt use: always do you feel safe at home: Yes 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 Date Name GA/Weeks Outcome Route Bth Weight Gen Labor Lgth Anesthesia Del Locatn Provider FOB Unknown 03/2019 SAB spontaneous Unknown 07/2021 chemical Unknown 08/03/2023 miscarriage 6 spontaneous 04/29/20 Christiana 39 live - full term 6# Male none [facility] Hanane Tay[place] 07/10/22 Annabelle Rouse 39 live - full term 7#11oz Female none [facility] Hay [place] 01/11/24 spontaneous SM Delivery Date: 04/29/20 Last Updated by: Su MULLINS Delivery Date: 07/10/22 Last Updated by: Su MULLINS IOL Delivery Date: 01/11/24 Last Updated by: Keira Chen RN D&C HPI 37 wk ob Details: CECY GALLEGOS is a 29 year old who presents for routine OB visit. OB Visit [facility] Calculator Estimated Delivery Date Method Current WG Current Estimate 01/20/25 LMP (Certain) 36w 6d Expected Delivery Route/Plan Labor Preferences- CB/BF classes: [...] oz) 110/62 Negative -?-?-?-?-?-?-?-?-?-?-?-?- Negative 160 -?-?-?-?-?-?-?-?-?-?-?-?- -NO VB. Dominick prado movement. Nausea improved. Repeat [...] oz) 117/77 Negative -?-?-?-?-?-?-?-?-?-?-?-?- Negative 145 26 -?-?-?-?-?-?-?-?-?-?-?-?- SM- no [...] due for tsh. can not have epidural. 12/29/24 -?-?-?-?-?-?-?-?-?-?-?-?- 36w 6d 157 lb 8 oz (+29 lb 8 oz) 121/69 Negative -?-?-?-?-?-?-?-?-?-?-?-?- Negative 140 37 Cephalic 2 -?-?-?-?-?-?-?-?-?-?-?-?- 70 -2 KW- no vb/ lof/reg ctx. good fm. GBS today ACOG First Trimester First Trimester: Desire for [...] and Symptoms of Preeclampsia and Feeding No ROS Const Reports system reviewed and no additional complaints, except as documented Eyes Reports system reviewed and no additional complaints, except as documented ENT Reports system reviewed and no additional complaints, except as documented Card Reports system reviewed and no additional complaints, except as documented Resp Reports system reviewed and no additional complaints, except as documented GI Reports system reviewed and no additional complaints, except as documented, Denies nausea and Denies vomiting Reports system reviewed and no additional complaints, except as documented Musc Reports system reviewed and no additional complaints, except as documented Skin/Breast Reports system reviewed and no additional complaints, except as documented Neuro Yes system reviewed and no additional complaints, except as documented Psych Reports system reviewed and no additional complaints, except as documented Endo Reports system reviewed and no additional complaints, except as documented Rayshawn/Lymph Reports system reviewed and no additional complaints, except as documented Aller/Immun Reports system reviewed and no additional complaints, except as documented Exam Const General: cooperative, healthy appearing and no acute distress Orientation: alert, awake and oriented x3 Neck Neck: normal visual inspection and full ROM Resp Effort & Inspection: normal respiratory effort, able to speak in complete sentences and symmetric chest movement GI Inspection: normal to inspection Palpation: soft and other Other: gravid Skin General: no rashes or lesions noted Neuro General: patient alert, patient awake and patient oriented x3 Cognition: normal cognition Speech: speech normal Gait: normal gait Motor: muscle tone normal throughout Extrem General: normal to inspection and full ROM Psych Appearance: grossly normal Mental Status: mental status grossly normal Mood: congruent mood Affect: normal affect Speech and Movement: speech and movement normal Attitude: cooperative Thought Process: normal Thought Content: normal Judgment: judgment good Results POC Urinalysis 2 Dip (Clinic) Office Urine Glucose Negative Last Edit by Ronna Moreno on 12/29/24 15 :37 Office Urine Protein Negative Last Edit by Ronna Moreno on 12/29/24 15 :37 Coding Level of Care Code OB Routine Diagnoses 36 weeks gestation of Z3A.36 Weeks of gestation: 36 weeks Supervision of high risk in second trimester O09.92 Trimester: second trimester MTHFR mutation E72.12 Gestational diabetes mellitus (GDM) affecting , antepartum O24.419 History of recurrent miscarriages N96 Chiari malformation type I G93.5 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 anatomy reviewed. 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 delivery by 40 (5) History of recurrent miscarriages: Status: Acute Comment: on progesterone until 10-12 weeks (6) Chiari malformation type I: Status: Chronic Comment: s/p neurosurgery consult. no regional anesthesia. 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 see problem list details for updated plan management information and see below for orders placed at this visit. GA appropriate handout given. 12/29/24 1553 <Electronically signed by Reshma forbes CNM> Date _ Reshma Driscoll CNM Cosigner Signature: Date (if applicable) CC: ~ [facility] Work Phone: 1(549) 681-289706-13-2025 Radiology Diagnostic study note [facility] Imaging Services [address] [place] [address] OB Limited With Biometrics MR#: [id number] Acct: [id number] Name: CECY GALLEGOS Rep #: [id number] : 1995 F 29 From: Kendall Nunes MD PCP: Farzaneh Meraz DO Status: REG CLI Study:OB Limited With Biometrics Date of Exam : 12/23/24 Exam# [id number] Ordering Dr: Justina Guido CNM PROCEDURE: OB LIMITED WITH BIOMETRICS 12/23/2024 REASON FOR EXAM: 36 WK GROWTH SCAN TECHNIQUE: High resolution obstetric ultrasound performed using a 2D transducer. Standard views obtained, including biometry, anatomy survey, and Doppler studies. COMPARISON: Prior study dated September 02, 2024. FINDINGS Number: 1 Position: Vertex Placental Position: Anterior Placental Abnormalities: No evidence of previa. DIMENSIONS: Biparietal Diameter: 8.8 cm: 35 weeks and 4 days: 46 percentile/ Head Circumference: 32.28 cm: 36 weeks and 3 days: 30 percentile/ Abdominal Circumference: 32.82 cm: 36 weeks and 5 days: 79 percentile/ Femur Length: 6.85 cm: 35 weeks and 1 day: 24 percentile. ESTIMATED WEIGHT: 2884 g plus/-433 g ESTIMATED WEIGHT PERCENTILE (24+ weeks): 58 ESTIMATED GESTATIONAL AGE: Baseline: 36 weeks and 0 days By Ultrasound: 36 weeks and 1 day ESTIMATED DATE OF DELIVERY: Baseline: January 20, 2025 By Ultrasound: January 19, 2025 BIOPHYSICAL ASSESSMENT: Amniotic Fluid Volume: 3.5 cm Amniotic Fluid Index: 10.3 (8-24 cm normal range) Cardiac Motion: 147 beats per minute (average) Trunk and Limb Motion: Present. MATERNAL ANATOMY: Adnexa: Neither maternal ovary is successfully identified. Cervical Length (if measured): US/OB Limited With Biometrics IMPRESSION: Single live intrauterine gestation with a mean gestational age of 36 weeks and 1day. Reading Location: [id number] CC: CARON Gudio; Farzaneh Meraz DO ~ Licensing Specialist: Signed [facility]06-09-2025 Progress [facility] [address], [address] [place] [address] OFFICE VISIT Date of Service: 12/19/24 MR#: [id number] Acct: [id number] Name: CECY GALLEGOS Rep #: [id number] : 1995 Provider: Dr. 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 Hanane [place] 07/10/22 [place] Rouse 39 live - full term 7#11oz Female none [facility] Hay Tayo 01/11/24 spontaneous SM Delivery Date: [...] Negative -?-?-?-?-?-?-?-?-?-?-?-?- Negative 160 -?-?-?-?-?-?-?-?-?-?-?-?- MH-NO VB. Feelin g movement. Nausea improved. Repeat thyroid labs [...] malformation type I G93.5 Hypothyroidism due to Erikc's thyroiditis E03.8; E06.3 ASCUS of cervix with [...] PRR , [facility] 01/20/25, PC Angel Luis, [place] Tayo (4) : Status: Acute Qualifiers: Weeks of gestation: 35 weeks Qualified Code(s): Z3A.35 - 35 weeks gestation of Comment: NIPT low risk, carrier and ntd screen declined. anatomy reviewed. (5) History of recurrent miscarriages: Status: Acute Comment: on progesterone until 10-12 weeks (6) Chiari malformation type I: Status: Chronic Comment: s/p neurosurgery consult. no regional anesthesia. 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 Note Date/Time December 19, 2024 2:45p [facility] [address] [place] [address], [address] [place] [address] OFFICE VISIT Date of Service: 12/19/24 MR#: [id number] Acct: [id number] Name: CECY GALLEGOS Rep #: [id number] : 1995 Provider: Dr. 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 Hanane Tayo 07/10/22 Annabelle Rouse 39 live - full term 7#11oz Female none [facility] Hay [place] 01/11/24 spontaneous SM Delivery Date: 04/29/20 Last [...] Negative -?-?-?-?-?-?-?-?-?-?-?-?- Negative 160 -?-?-?-?-?-?-?-?-?-?-?-?- MH-NO VB. Dominick [...] , [facility] 01/20/25, PC Angel Luis, Annabelle [place] (4) : Status: Acute Qualifiers: Weeks of gestation: 35 weeks Qualified Code(s): Z3A.35 - 35 weeks gestation of Comment: NIPT low risk, carrier and ntd screen declined. anatomy reviewed. (5) History of recurrent miscarriages: Status: Acute Comment: on progesterone until 10-12 weeks (6) Chiari malformation type I: Status: Chronic Comment: s/p neurosurgery consult. no regional anesthesia. 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 (8) ASCUS of cervix with negative high risk HPV: Status: Acute Comment: repeat pap 3 yrs, 09/2023 Neg pap/Neg HPV Orders: Orders POC Urinalysis 2 Dip (Clinic) Today 12/19/24 8525 <Electronically signed by Keshia Myers DO> Date _ Keshia Galvez DO [facility] Signature: Date (if applicable) CC: ~ [facility] Work Phone: 1(479) 792-893105-16-2025 [facility] [address] [place] [address], [address] [place] [address] OFFICE VISIT Date of Service: 11/25/24 MR#: [id number] Acct: [id number] Name: CECY GALLEGOS Rep #: [id number] : 1995 Provider: Dr. 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 Date Name GA/Weeks Outcome Route Bth Weight Gen Labor Lgth Anesthesia Del Locatn Provider FOB Unknown 03/2019 SAB spontaneous Unknown 07/2021 chemical Unknown 08/03/2023 miscarriage 6 spontaneous 04/29/20 Angel Luis 39 live - full term 6# Male none [facility] Hanane Tay[place] 07/10/22 Annabelle Rouse 39 live - full term 7#11oz Female none [facility] Hay [place] 01/11/24 spontaneous SM Delivery Date: 04/29/20 Last [...] 112/74 Nega tive -?-?-?-?-?-?-?-?-?-?-?-?- Negative 163 -?-?-?-?-?-?-?-?-?-?-?-?- -No VB. Nausea resolved. Br US confirm FHT 08/01/24 -?-?-?-?-?-?-?-?-?-?-?-?- 15w 3d 131 lb 129/80 Negative -?-?-?-?-?-?-?-?-?-?-?-?- Negative 146 -?--?-?-?-?-?-?-?-?-?-?-?- KW- no vb/crampi ng. movement and FHT with US today. doing well. 08/17/24 -?-?-?-?-?-?-?-?-?-?-?-?- 17w 5d 133 lb 4 oz 110/62 Nega tive -?-?-?-?-?-?-?-?-?-?-?-?- Negative 160 -?-?-?-?-?-?-?-?-?-?-?-?- MH-NO VB. Feelin g movement. Nausea improved. Repeat thyroid labs [...] PRR , [facility] 01/20/25, PC Angel Luis, [place] Tayo (4) : Status: Acute Qualifiers: Weeks of gestation: 32 weeks Qualified Code(s): Z3A.32 - 32 weeks gestation of Comment: NIPT low risk, carrier and ntd screen declined. anatomy reviewed. (5) History of recurrent miscarriages: Status: Acute Comment: on progesterone until 10-12 weeks (6) Chiari malformation type I: Status: Chronic Comment: s/p neurosurgery consult. no regional anesthesia. 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 Work Phone: 1(774) 204-905603-07-2025 Evaluation note* Diagnosis Onset Date Resolution Status [...] 2024 10:25am Chiari malformation type I chronic Josie 16th, 2025 10:25am 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 [...] due to Erick's thyroiditis chronic December 2:07pm ASCUS of cervix with negativ e high risk HPV acute December 29, 2024 3:27pm Gestational diabetes mellitu s (GDM) affecting , antepartum acute December 29, 2024 3:27pm History of recurrent miscarriages acute December 29, 2024 3:27pm MTHFR mutation acute December 29, 2024 3:27pm acute December 29 3:27pm Supervision of high-risk acute December 29, 2024 3:27pm Chiari malformation type I chronic December 29, 2024 3:27pm 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 December 3:27pm [facility] Work Phone: 1(820) 177-188103-07-2025 Evaluation note* Diagnosis Onset Date Resolution Status [...] 2024 10:51am Chiari malformation type I chronic March 21st, 2025 10:51am 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 [...] due to Erick's thyroiditis chronic December 2:07pm ASCUS of cervix with negativ e high risk HPV acute December 29, 2024 3:27pm Gestational diabetes mellitu s (GDM) affecting , antepartum acute December 29, 2024 3:27pm History of recurrent miscarriages acute December 29, 2024 3:27pm MTHFR mutation acute December 29, 2024 3:27pm acute December 29 3:27pm Supervision of high-risk acute December 29, 2024 3:27pm Chiari malformation type I chronic December 29, 2024 3:27pm 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 December 3:27pm ASCUS of cervix with negativ e high risk HPV acute January 05, 2025 11:34am Gestational diabetes mellitu s (GDM) affecting , antepartum acute January 05, 2025 11:34am History of recurrent miscarriages acute January 05, 2025 11:34am MTHFR mutation acute January 05, 2025 11:34am Positive GBS test acute January 052024 11:34am acute January 05 11:34am Supervision of high-risk acute January 05, 2025 11:34am Chiari malformation type I chronic January 05, 2025 11:34am 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 December 11:34am [facility] Work Phone: 1(745) 591-614903-07-2025 Evaluation note* Diagnosis Onset Date Resolution Status [...] mellitu s (GDM) affecting , antepartum acute May 30th, 2025 9 :56am History of recurrent miscarriages acute [...] due to Erick's thyroiditis chronic December 2:07pm ASCUS of cervix with negativ e high risk HPV acute December 29, 2024 3:27pm Gestational diabetes mellitu s (GDM) affecting , antepartum acute December 29, 2024 3:27pm History of recurrent miscarriages acute December 29, 2024 3:27pm MTHFR mutation acute December 29, 2024 3:27pm acute December 29 3:27pm Supervision of high-risk acute December 29, 2024 3:27pm Chiari malformation type I chronic December 29, 2024 3:27pm 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 December 3:27pm ASCUS of cervix with negativ e high risk HPV acute January 05, 2025 11:34am Gestational diabetes mellitu s (GDM) affecting , antepartum acute January 05, 2025 11:34am History of recurrent miscarriages acute January 05, 2025 11:34am MTHFR mutation acute January 05, 2025 11:34am Positive GBS test acute January 052024 11:34am acute January 05 11:34am Supervision of high-risk acute January 05, 2025 11:34am Chiari malformation type I chronic January 05, 2025 11:34am 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 December 11:34am ASCUS of cervix with negativ e high risk HPV acute January 12, 2025 8 :27am Gestational diabetes mellitu s (GDM) affecting , antepartum acute January 12, 2025 8 :27am History of recurrent miscarriages acute January 12, 2025 8 :27am MTHFR mutation acute January 12, 2025 8:27am Positive GBS test acute January 8:27am acute January 12, 2025 8:27am Supervision of high-risk acute January 12, 2025 8 :27am Chiari malformation type I chronic January 12, 2025 8:27am 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 Reading Location: [place] [address] CC: CONNIE Stern; DO Bibi Hernandez Licensing Specialist: Signed [facility]02-05-2025 Evaluation note* Diagnosis Onset Date Resolution Status [...] 9: 08am MTHFR mutation acute November 16, 9:08am acute November 16, 2024 9:08am Supervision [...] due to Erick's thyroiditis chronic November 9:56am [facility] Work Phone: 1(540) 284-841601-20-2025 Evaluation note* Diagnosis Onset Date Resolution Status [...] due to Erick's thyroiditis chronic November 10:02am [facility] Work Phone: 1(951) 737-594501-08-2025 Evaluation note* Diagnosis Onset Date Resolution Status Admit Date History of recurrent miscarriages acute July 20 4:03pm MTHFR mutation acute July 4:03pm acute July 20, 2 025 4:03pm Supervision of high-risk acute July [...] to Erick's thyroiditis chronic October 262024 10:25am [facility] Work Phone: 1(412) 278-684712-06-2024 Evaluation note* Diagnosis Onset Date Resolution Status [...] e high risk HPV acute June 29, 10:03am History of recurrent miscarriages acute June 29, 10:03am MTHFR mutation acute June 122023 10:03am acute June 29, 2024 10:03am Supervision of high-risk acute June 29, 10:03am Chiari malformation type I chronic June [...] Erick's thyroiditis chronic August 17, 2024 2:56pm [facility] Work Phone: 1(979) 737-722203-15-2024 NotePap Smear Specimen AdequacyMar 2023 12:56pmComment.Satisfactory for evaluation. Endocervical and/or squamous metaplasticcells (endocervical component)are present.[facility] INTER[facility]ACED A#[id number] Health SystemComment on above:Satisfactory for evaluation. Endocervical and/or squamous metaplasticcells (endocervical component)are present.Evaluation noteNo assessment information availableWHolzer Health System Work Phone: Evaluation note* Diagnosis Onset Date Resolution Status Nausea/vomiting in acute acute Supervision of high-risk acute Thyroid disease affecting acute Chiari malformation type I c hronic [facility] Work Phone: Evaluation note* Diagnosis Onset Date [...] antepartum acute Chiari malformation type I c hronic [facility] Work Phone: Evaluation note* Diagnosis Onset Date [...] acute Chiari malformation type I c hronic [facility] Work Phone: Evaluation note* Diagnosis Onset Date [...] acute Chiari malformation type I c hronic [facility] Work Phone: Evaluation note* Diagnosis Onset Date [...] acute Chiari malformation type I c hronic [facility] Work Phone: Evaluation note* Diagnosis Onset Date [...] affecting acute Chiari malformation type I c onic [facility] Work Phone: Evaluation note* Diagnosis Onset Date Resolution Status ASCUS of cervix with negative high risk HPV acute Thyroid disease affecting acute Chiari malformation type I c hronic ASCUS of cervix with negative high risk HPV acute normal course acu te Thyroid disease affecting acute Chiari malformation type I c hronic Thyroiditis acute [facility] Work Phone: Evaluation note* Diagnosis Onset Date Resolution Status Pre-conception counseling ac [place] Thyroiditis acute Encounter for routine gynecological examination noneactive Cervical cancer screening ac [facility] Work Phone: Progress note Author Pam Koo [facility] Note Date/Time November 25, 2024 10:28 am [facility] [address] [place] [address], [address] [place] [address] OFFICE VISIT Date of Service: 11/25/24 MR#: [id number] Acct: [id number] Name: CECY GALLEGOS Rep #: [id number] : 1995 Provider: Dr. 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 Hanane [place] 07/10/22 [place] Padma 39 live - full term 7#11oz Female none [facility] Hay [place] 01/11/24 spontaneous SM Delivery Date: 04/29/20 Last [...] tive -?-?-?-?-?-?-?-?-?-?-?-?- Negative 160 -?-?-?-?-?-?-?-?-?-?-?-?- MH-NO VB. Feelin g movement. Nausea improved. Repeat thyroid labs [...] , [facility] 01/20/25, PC Angel Luis, Annabelle Tayo (4) : Status: Acute Qualifiers: Weeks of gestation: 32 weeks Qualified Code(s): Z3A.32 - 32 weeks gestation of Comment: NIPT low risk, carrier and ntd screen declined. anatomy reviewed. (5) History of recurrent miscarriages: Status: Acute Comment: on progesterone until 10-12 weeks (6) Chiari malformation type I: Status: Chronic Comment: s/p neurosurgery consult. no regional anesthesia. 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 (8) ASCUS of cervix with negative high risk HPV: Status: Acute Comment: repeat pap 3 yrs, 09/2023 Neg pap/Neg HPV Orders: Orders POC Urinalysis 2 Dip (Clinic) Today 11/25/24 1028 <Electronically signed by Pam javier MD> Date _ Pam Koo MD Cosigner Signature: Date (if applicable) CC: ~ [facility] Work Phone: Progress note Author Pam Koo [facility] Note Date/Time January 05, 2025 11:5 9am [facility] [address], [address] [place] [address] OFFICE VISIT Date of Service: 01/05/25 MR#: [id number] Acct: [id number] Name: CECY GALLEGOS Rep #: [id number] : 1995 Provider: Dr. 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: No Is patient in pain?: No Feel stressed/tense/nervous/anxious/difficulty sleeping: not at all Allergies banana Allergy (Mild, Verified 01/05/25 11:35) RASH Latex, Natural Rubber Allergy (Mild, Verified 01/05/25 11:35) Rash Medications ?Medication ?Instructions ?Recorded ?Confirmed ?Type vitamin#30 30 mg iron-10 1 cap PO DAILY pregn irene 04/07/19 01/05/25 History mg iron-folic acid 1 mg-omg3 capsule aspirin 81 mg tablet,delayed 81 mg PO DAILY 12/22/23 0 01/05/25 History release (Adult Aspirin Regimen) blood sugar diagnostic (Blood #120 ea 10/28/24 5 Rx Glucose Test strips) blood-glucose meter #1 ea 10/28/24 01/05/25 Rx lancets 30 gauge (Droplet Lancets) #200 ea 10/28/24 Rx metformin 500 mg tablet 500 mg PO QDAY #30 tabs 10/1201/05/25 Rx levothyroxine 50 mcg tablet 50 mcg PO DAILY #90 tabs 0 12/06/24 01/05/25 Rx Last Menstrual Period: 04/15/24 Zika: Zika [...] 1-2 times per week duration: 15-30 minutes/day femi/tenriism: Pentecostalism seatbelt use: always do you feel safe at home: Yes 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 [place] 07[place]10/22 [place] 39 live - full term 7#11oz Female none [facility] Guido [place] 01/11/24 spontaneous SM Delivery Date: 04/29/20 Last Updated by: Su MULLINS Delivery Date: 07/10/22 Last Updated by: Su MULLINS IOL Delivery Date: 01/11/24 Last Updated by: Keira Chen RN D&C HPI 38 WK ob *only SM/LC Details: CECY GALLEGOS is a 29 year old who presents for routine OB visit. OB Visit [facility]ERMAN Calculator Estimated Delivery Date Method Current WG Current Estimate 01/20/25 LMP (Certain) 37w 6d Expected Delivery Route/Plan Labor Preferences- CB/BF classes: [...] lb) 108/69 Negative -?-?-?-?-?-?-?-?-?-?-?-?- Negative 140 24 -?-?--?-?-?-?-?-?-?-?-?-?- LC- no vb/ctx/lo f. good fm. LC- no vb/ctx/lof. good fm. 28 week labs ordered, plans fresh test. 10/12/24 -?-?-?-?-?-?-?-?-?-?-?-?- 25w 5d 144 lb 6 oz (+16 lb 6 oz) 117/77 Negative -?-?-?-?-?-?-?-?-?-?-?-?- Negative 145 26 -?-?-?-?-?-?-?-?-?-?-?-?- SM- no [...] due for tsh. can not have epidural. 12/29/24 -?-?-?-?-?-?-?-?-?-?-?-?- 36w 6d 157 lb 8 oz (+29 lb 8 oz) 121/69 Negative -?-?-?-?-?-?-?-?-?-?-?-?- Negative 140 37 Cephalic 2 -?-?-?-?-?-?-?-?-?-?-?-?- 70 -2 KW- no vb/ lof/reg ctx. good fm. GBS today 01/05/25 -?-?-?-?-?-?-?-?-?-?-?-?- 37w 6d 159 lb 6 oz (+31 lb 6 oz) 132/86 Negative -?-?-?-?-?-?-?-?-?-?-?-?- Negative 140 37 Cephalic 2 -?-?-?-?-?-?-?-?-?-?-?-?- SM- no vb lof go od fm n oreuglar ctx bS controlled ACOG First Trimester First Trimester: Desire for [...] Negative Last Edit by Caroline Graham on 01/05/25 11:44 Office Urine Protein Negative Last Edit by Caroline Graham on 01/05/25 11:44 Coding Level of Care Code OB Routine Diagnoses Positive GBS test B95.1 Gestational diabetes mellitus (GDM) affecting , antepartum O24.419 MTHFR mutation E72.12 Supervision of high risk in second trimester O09.92 Trimester: second trimester 37 weeks gestation of Z3A.37 Weeks of gestation: 37 weeks History of recurrent miscarriages N96 Chiari malformation type I G93.5 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 E03.8; E06.3 ASCUS of cervix with negative high risk HPV R87.610 Assessment and Plan Assessment and Plan (1) Positive GBS test: Status: Acute Comment: treat in labor (2) Gestational diabetes mellitus (GDM) affecting , antepartum: Status: Acute Comment: diet controlled, growth US at 36 weeks. 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 anatomy reviewed. (6) History of recurrent miscarriages: Status: Acute Comment: on progesterone until 10-12 weeks (7) Chiari malformation type I: Status: Chronic Comment: s/p neurosurgery consult. no regional anesthesia. dr deng in [place] (8) 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: Status: Chronic (9) ASCUS of cervix with negative high risk HPV: Status: Acute Comment: repeat pap 3 yrs, 09/2023 Neg pap/Neg HPV Orders: Orders POC Urinalysis 2 Dip (Clinic) Today 01/05/25 1159 <Electronically signed by Pam javier MD> Date _ Pam Koo MD Cosigner Signature: Date (if applicable) CC: ~ [facility] Work Phone: Reason for referral (narrative)No reason for referral information availableWHolzer Health System Work Phone: Assessments Diagnosis Irregular bleeding - Primary Irregular menstrual cycle Summary Purpose Family History No Family History Records Found Relationship Condition Age at Onset Recorded Date/T sanju father Unknown Advance Directives No Advanced Directives Records Found Advance Directive Response Recorded Date/ Time Living Will No April 29 1:05pm Power of Director Airport No April 29, 2020 1:05pm Advance Directive Response Recorded Date/ Time Living Will No January 08, 2022 8:09am Power of Director Airport No January 08 8:09am Advance Directive Response Recorded Date/ Time Living Will No January 08, 2022 7:09am Power of Director Airport No January 08 7:09am Advance Directive Response Recorded Date/ Time Living Will No July 09 022 8:30pm Power of Director Airport No July 09, 2022 8:30pm Advance Directive Response Recorded Date/ Time Living Will No July 09 022 9:30pm Power of Director Airport No July 09, 2022 9:30pm Advance Directive Response Recorded Date/ Time Living Will No January 08, 2024 12:15pm Power of Director Airport No January 07 12:15pm Advance Directive Response Recorded Date/ Time Living Will No July 09 022 9:30pm Do you have a Healthcare Power of Director Airport? No July 09, 2022 9:30pm Chief Complaint [...] Chief Complaint EORDER E-ORDER NEED ORDER Annual (VAMP MARKER) E ORDERS Annual (VAMP MARKER) Reason for Visit Pre-conception couns eling Thyroiditis Encounter for routine gynecological examination Cervical cancer screening Chief Complaint EORDER E-ORDER NEED ORDER Annual (VAMP MARKER) E ORDERS Annual (VAMP MARKER) ANNUAL PAP Reason for Visit Pre-conception couns [...] 29, 2024 10:03am History of recurrent miscarriages 2024 4:03pm MTHFR mutation July 20, 2024 4: 03pm July 20, 2024 4: 03pm Supervision of high-risk Julua 2024 4:03pm Chiari malformation type I July 20, 2024 4:03pm 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 July 20, 2024 4:03pm ASCUS of cervix with negative high risk HPV August 01, 2024 1:28pm History of recurrent miscarriages r 2024 1:28pm MTHFR mutation August 01, 2024 [...] Visit Admit Date History of recurrent miscarriages 2024 4:03pm MTHFR mutation July 20, 2024 4: 03pm July 20, 2024 4: 03pm Supervision of high-risk Janua ry 2024 4:03pm Chiari malformation type I July 20, 2024 4:03pm 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 July 20, 2024 4:03pm ASCUS of cervix with negative high risk HPV August 01, 2024 1:28pm History of recurrent miscarriages Januar y 2024 1:28pm MTHFR mutation August 01, 2024 1 :28pm August 01, 2024 1 :28pm Supervision of high-risk Janua ry 2024 1:28pm Chiari malformation type I August 01, 2024 1:28pm 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 August 01, 2024 1:28pm History of recurrent miscarriages Februa ry 2024 2:56pm MTHFR mutation August 17, 2024 [...] 10:25am Chiari malformation type I October 26, 10:25am 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 October 26, 2024 10:25am Chief Complaint Admit Date HEARTBEAT CK August 01, 2024 1 :28pm 18 WK OB August 17, 2024 2 :56pm SUPERVISION OF HIGH RISK 2024 12:26pm 22 WK OB September 16, 2024 [...] 01, 2024 1 :28pm Supervision of high-risk 2024 1:28pm Chiari malformation type I August [...] 10:25am Chiari malformation type I October 26, 025 10:25am Hypothyroidism due to Erick's thyroi [...] 2024 2 :56pm SUPERVISION OF HIGH RISK 2024 12:26pm 22 WK OB September 16, 2024 [...] Visit Admit Date History of recurrent miscarriages 2024 2:56pm MTHFR [...] 10:25am Chiari malformation type I October 26, 025 10:25am Hypothyroidism due to Erick's thyroi [...] Erick's thyroi ditis December 19, 2024 2:07pm Chief Complaint Admit Date SUPERVISION OF HIGH RISK u 2024 12:26pm 22 WK OB September 16, 2024 [...] wk ob December 19, 2024 2:07p m 36 WK GROWTH SCAN December 23, 2024 8:27 am Chief Complaint Admit Date SUPERVISION OF HIGH RISK Febru 2024 12:26pm 22 WK OB September 16, 2024 [...] wk ob December 19, 2024 2:07p m 36 WK GROWTH SCAN December 23, 2024 8:27 am 37 wk ob December 29, 2024 3:27 pm Reason for Visit Admit Date ASCUS of [...] miscarriages September 30, 2024 10:51am MTHFR mutation March 21st, 2025 10: 51am September 30, 2024 10: 51am Supervision of high-risk September 30, 2024 10:51am Chiari malformation type I September 30, 2 025 10:51am Hypothyroidism due to Erick's thyroi [...] 10:25am Chiari malformation type I October 26, 025 10:25am Hypothyroidism due to Erick's thyroi [...] Erick's thyroi ditis December 19, 2024 2:07pm ASCUS of cervix with negative high risk HPV December 29, 2024 3:27pm Gestational diabetes mellitu s (GDM) affecting , antepartum December 29, 2024 3:27pm History of recurrent miscarriages December 112024 3:27pm MTHFR mutation December 29, 2024 3:27 pm December 29, 2024 3:27 pm Supervision of high-risk December 29, 2024 3:27pm Chiari malformation type I December 29 3:27pm 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 December 29, 2024 3:27pm Chief Complaint Admit Date 22 WK OB September 16, 2024 11:2 [...] wk ob December 19, 2024 2:07p m 36 WK GROWTH SCAN December 23, 2024 8:27 am 37 wk ob December 29, 2024 3:27 pm Chief Complaint Admit Date 22 WK OB September 16, 2024 11:2 [...] wk ob December 19, 2024 2:07p m 36 WK GROWTH SCAN December 23, 2024 8:27 am 37 wk ob December 29, 2024 3:27 pm 38 WK ob *only SM/LC January 05, 2025 11: 34am Reason for Visit Admit Date ASCUS of [...] 10:51am Chiari malformation type I September 30, 2 025 10:51am Hypothyroidism due to Erick's thyroi [...] Erick's thyroi ditis December 19, 2024 2:07pm ASCUS of cervix with negative high risk HPV December 29, 2024 3:27pm Gestational diabetes mellitu s (GDM) affecting , antepartum December 29, 2024 3:27pm History of recurrent miscarriages December 112024 3:27pm MTHFR mutation December 29, 2024 3:27 pm December 29, 2024 3:27 pm Supervision of high-risk December 29, 2024 3:27pm Chiari malformation type I December 29 3:27pm 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 December 29, 2024 3:27pm ASCUS of cervix with negative high risk HPV January 05, 2025 11:34am Gestational diabetes mellitu s (GDM) affecting , antepartum January 05, 2025 11:34am History of recurrent miscarriages December 122024 11:34am MTHFR mutation January 05, 2025 11:3 4am Positive GBS test January 05, 2025 11:3 4am January 05, 2025 11:3 4am Supervision of high-risk January 05, 2025 11:34am Chiari malformation type I January 05 11:34am 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 January 05, 2025 11:34am Chief Complaint Admit Date 22 WK OB September 16, 2024 11:2 [...] wk ob December 19, 2024 2:07p m 36 WK GROWTH SCAN December 23, 2024 8:27 am 37 wk ob December 29, 2024 3:27 pm 38 WK ob *only SM/LC January 05, 2025 11: 34am 39 wk ob January 12, 2025 8:27a m Reason for Visit Admit Date ASCUS [...] 10:51am Chiari malformation type I September 30, 025 10:51am Hypothyroidism due to Erick's thyroi [...] 10:25am Chiari malformation type I October 26, 025 10:25am Hypothyroidism due to Erick's thyroi [...] Erick's thyroi ditis December 19, 2024 2:07pm ASCUS of cervix with negative high risk HPV December 29, 2024 3:27pm Gestational diabetes mellitu s (GDM) affecting , antepartum December 29, 2024 3:27pm History of recurrent miscarriages December 112024 3:27pm MTHFR mutation December 29, 2024 3:27 pm December 29, 2024 3:27 pm Supervision of high-risk December 29, 2024 3:27pm Chiari malformation type I December 29 3:27pm 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 December 29, 2024 3:27pm ASCUS of cervix with negative high risk HPV January 05, 2025 11:34am Gestational diabetes mellitu s (GDM) affecting , antepartum January 05, 2025 11:34am History of recurrent miscarriages December 122024 11:34am MTHFR mutation January 05, 2025 11:3 4am Positive GBS test January 05, 2025 11:3 4am January 05, 2025 11:3 4am Supervision of high-risk January 05, 2025 11:34am Chiari malformation type I January 05 11:34am 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 January 05, 2025 11:34am ASCUS of cervix with negative high risk HPV January 12, 2025 8:27am Gestational diabetes mellitu s (GDM) affecting , antepartum January 12, 2025 8:27am History of recurrent miscarriages January 122024 8:27am MTHFR mutation January 12, 2025 8:27a m Positive GBS test January 12, 2025 8:27a m January 12, 2025 8:27a m Supervision of high-risk January 12, 2025 8:27am Chiari malformation type I January 12 8:27am 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 January 12, 2025 8:27am Additional Source Comments INFORMATION SOURCE (unrecogn ized section and content) DATE CREATED AUTHOR 12/31/2017 [facility] DATE CREATED AUTHOR AUTHOR'S ORGANIZ ATION 01/05/2018 [facility] ([place]) DATE CREATED AUTHOR AUTHOR'S ORGANIZ ATION 01/05/2018 [facility] DATE CREATED AUTHOR AUTHOR'S ORGANIZ ATION 01/06/2018 [facility] DATE CREATED AUTHOR AUTHOR'S ORGANIZ ATION 01/06/2018 [facility] DATE CREATED AUTHOR AUTHOR'S ORGANIZ ATION 07/11/2024 [facility] DATE CREATED AUTHOR AUTHOR'S ORGANIZ ATION 01/12/2025 [facility] Goals (unrecognized section and content) Goals [...] MD Primary Care Provider Active Caroline Stern JUNIOR FINANCIAL ANALYST, JUNIOR FINANCIAL ANALYST-C Attending Provider, Referring Provider Active Team Status: Active Member Role Status Dates Dr. Warren Melendez MD Primary Care Provider Active Caroline Stern JUNIOR FINANCIAL ANALYST, JUNIOR FINANCIAL ANALYST-C Attending Provider, Referring Provider Active Team Status: [...] Meraz VSC, DO Primary Care Provider Active Team Status: Inactive Member Role Status Dates Farzaneh BAILEYC, DO Primary Care Provider Active Start: May 23, 2024 End: May 23, 2024 Justina Guido CNM Attending Provider Active Start: May 23, 2024 End: May 23, 2024 Justina Guido CNM Referring Provider Active Start: May 23, 2024 End: May 23, 2024 Team Status: Inactive Member Role Status Dates Farzaneh MATIAS, DO Primary Care Provider Active Start: May [...] 2024 End: June 17, 2024 Farzaneh Meraz VSCollins, DO Referring Provider Active Start: June 17, 2024 End: June 17, 2024 Justina Guido CNM Attending Provider Active Start: June 17, 2024 End: June 17, 2024 Team Status: Inactive Member Role Status Dates Farzaneh MATIAS, DO Primary Care Provider Active Start: June 17, 2024 End: June 17, 2024 Justina Guido CNM Attending Provider Active Start: June 17, 2024 End: June 17, 2024 Justina Guido CNM Referring Provider Active Start: June 17, 2024 End: June 17, 2024 Team Status: Inactive Member Role Status Dates Farzaneh Meraz VSCollins, DO Primary Care Provider Active Start: June [...] 2024 End: July 20, 2024 Caroline Stern JUNIOR FINANCIAL ANALYST, JUNIOR FINANCIAL ANALYST-C Attending Provider Active Start: July 20, 2024 End: July 20, 2024 Team Status: Inactive Member Role Status Dates Farzaneh Kt VSC, DO Primary Care Provider Active Start: August 01, 2024 End: August 01, 2024 Farzaneh Kt VSC, DO Referring Provider Active Start: August [...] 2024 End: August 17, 2024 Caroline Stern JUNIOR FINANCIAL ANALYST, JUNIOR FINANCIAL ANALYST-C Attending Provider Active Start: August 17, 2024 End: August 17, 2024 Team Status: Inactive Member Role Status Dates Farzaneh Meraz VSC, DO Primary Care Provider Active Start: August 17, 2024 End: August 17, 2024 Caroline Stern JUNIOR FINANCIAL ANALYST, JUNIOR FINANCIAL ANALYST-C Attending Provider Active Start: August 17, 2024 [...] 16, 2024 End: September 16, 2024 Farzaneh Kt VSC, DO Referring Provider Active Start: September 16, 2024 End: September 16, 2024 Reshma Driscoll CNM Attending Provider Active S tart: September 16, 2024 End: September 16, 2024 Team Status: Inactive Member Role Status Dates Farzaneh Kt VSC, DO Primary Care Provider Active Start: September 30, 2024 End: September 30, 2024 Farzaneh Kt VSC, DO Referring Provider Active Start: September 30, 2024 End: September 30, 2024 Justina Guido CNM Attending Provider Active Start: September 30, 2024 End: September 30, 2024 Team Status: Inactive Member Role Status Dates Farzaneh Kt VSC, DO Primary Care Provider Active Start: October 12, 2024 End: October 12, 2024 Farzaneh Kt VSC, DO Referring Provider Active Start: October 12, 2024 End: October 12, 2024 Dr. Pam Koo MD Attending Provider Active Start: October 12, 2024 End: October 12, 2024 Team Status: Inactive Member Role Status Dates Farzaneh Tk VSC, DO Primary Care Provider Active Start: October 26, 2024 End: October 26, 2024 Farzaneh Kt VSC, DO Referring Provider Active Start: October 26, 2024 End: October 26, 2024 Dr. Pam Koo MD Attending Provider Active Start: October 26, 2024 End: October 26, 2024 Team Status: Inactive Member Role Status Dates Farzanehphoebe Meraz VSC, DO Primary Care Provider Active [...] 04, 2024 End: November 04, 2024 Farzaneh Kt VSC, DO Referring Provider Active Start: November 04, 2024 End: November 04, 2024 Team Status: Inactive Member Role Status Dates Farzanehwilfrid Meraz VSC, DO Primary Care Provider Active Start: November 16, 2024 End: November 16, 2024 Farzaneh Kt VSC, DO Referring Provider [...] Status: Inactive Member Role Status Dates Farzaneh Martinezer VSC, DO Primary Care Provider Active Start: [...] December 19, 2024 Dr. Keshia Galvez , DO Attending Provider Activ e Start: December 19, 2024 End: December 19, 2024 Team Status: Active Member Role Status Dates Farzaneh Meraz VSC, DO Primary Care Provider Active Start: December 19, 2024 Dr. Keshia Galvez , DO Attending Provider Activ e Start: December 19, 2024 Dr. Keshia Galvez , DO Referring Provider Activ e Start: December 19, 2024 Team Status: Inactive Member Role Status Dates Farzaneh Meraz VSC, DO Primary Care Provider Active Start: December 19, 2024 End: December 19, 2024 Dr. Keshia Galvez , DO Attending Provider Activ e Start: December 19, 2024 End: December 19, 2024 Dr. Keshia Galvez , DO Referring Provider Activ e Start: December 19, 2024 End: December 19, 2024 Team Status: Active Member Role Status Dates Farzaneh BAILEYC, DO Primary Care Provider Active Start: December 23, 2024 Justina Guido CNM Attending Provider Active Start: December 23, 2024 Justina Guido CNM Referring Provider Active Start: December 23, 2024 Team Status: Inactive Member Role Status Dates Farzaneh BAILEYC, DO Primary Care Provider Active Start: December 29, 2024 End: December 29, 2024 Farzaneh BAILEYC, DO Referring Provider Active Start: December 29, 2024 End: December 29, 2024 Reshma Driscoll CNM Attending Provider Active S tart: December 29, 2024 End: December 29, 2024 Team Status: Inactive Member Role Status Dates Farzaneh BAILEYC, DO Primary Care Provider Active Start: December 23, 2024 End: December 23, 2024 Justina Guido CNM Attending Provider Active Start: December 23, 2024 End: December 23, 2024 Justina Guido CNM Referring Provider Active Start: December 23, 2024 End: December 23, 2024 Team Status: Active Member Role Status Dates Farzaneh Kt VSC, DO Primary Care Provider Active Start: December 29, 2024 Reshma Driscoll CNM Attending Provider Active S tart: December 29, 2024 Reshma Driscoll CNM Referring Provider Active S tart: December 29, 2024 Team Status: Inactive Member Role Status Dates Farzaneh Meraz VSC, DO Primary Care Provider Active Start: December 29, 2024 End: December 29, 2024 Reshma Driscoll CNM Attending Provider Active S tart: December 29, 2024 End: December 29, 2024 Reshma Driscoll CNM Referring Provider Active S tart: December 29, 2024 End: December 29, 2024 Team Status: Inactive Member Role Status Dates Farzaneh Meraz VSC, DO Primary Care Provider Active Start: January 05, 2025 End: January 05, 2025 Farzaneh Kt VSC, DO Referring Provider Active Start: January 05, 2025 End: January 05, 2025 Dr. Pam Koo MD Attending Provider Active Start: January 05, 2025 End: January 05, 2025 Team Status: Active Member Role/Relationship Status Dates Farzaneh Martinezer VSC, DO Primary Care Provider Active Team Status: Inactive Member Role/Relationship Status Dates Farzaneh Kt VSC, DO Primary Care Provider Active Start: September 16, 2024 End: September 16, 2024 Farzaneh Kt VSC, DO Referring Provider Active Start: September 16, 2024 End: September 16, 2024 Reshma Driscoll CNM Attending Provider Active S tart: September 16, 2024 End: September 16, 2024 Team Status: Inactive Member Role/Relationship Status Dates Farzaneh Kt VSC, DO Primary Care Provider Active Start: September 30, 2024 End: September 30, 2024 Farzaneh Kt VSC, DO Referring Provider Active Start: September 30, 2024 End: September 30, 2024 Justina Guido CNM Attending Provider Active Start: September 30, 2024 End: September 30, 2024 Team Status: Inactive Member Role/Relationship Status Dates Farzaneh Martinezer VSC, DO Primary Care Provider Active Start: October 12, 2024 End: October 12, 2024 Farzaneh Kt VSC, DO Referring Provider Active Start: October 12, 2024 End: October 12, 2024 Dr. Pam Koo MD Attending Provider Active Start: October 12, 2024 End: October 12, 2024 Team Status: Inactive Member Role/Relationship Status Dates Farzaneh Kt VSC, DO Primary Care Provider Active Start: October 26, 2024 End: October 26, 2024 Farzaneh Kt VSC, DO Referring Provider Active Start: October 26, 2024 End: October 26, 2024 Dr. Pam Koo MD Attending Provider Active Start: October 26, 2024 End: October 26, 2024 Team Status: Inactive Member Role/Relationship Status Dates Farzaneh Meraz VSC, DO Primary Care Provider Active Start: October 26, 2024 End: October 26, 2024 Reshma Driscoll CNM Attending Provider Active S tart: October 26, 2024 End: October 26, 2024 Reshma Driscoll CNM Referring Provider Active S tart: October 26, 2024 End: October 26, 2024 Team Status: Inactive Member Role/Relationship Status Dates Farzaneh Kt VSC, DO Primary Care Provider Active Start: October 28, 2024 End: October 28, 2024 Dr. Pam Koo MD Attending Provider Active Start: October 28, 2024 End: October 28, 2024 Dr. Pam Koo MD Referring Provider Active Start: October 28, 2024 End: October 28, 2024 Team Status: Inactive Member Role/Relationship Status Dates Dr. Moises Mazariegos MD Attending Provider Active Sta rt: November 04, 2024 End: November 04, 2024 Farzaneh Kt VSC, DO Primary Care Provider Active Start: November 04, 2024 End: November 04, 2024 Farzaneh Kt VSC, DO Referring Provider Active Start: November 04, 2024 End: November 04, 2024 Team Status: Inactive Member Role/Relationship Status Dates Farzaneh Kt VSC, DO Primary Care Provider Active Start: November 16, 2024 End: November 16, 2024 Farzaneh Kt VSC, DO Referring Provider Active Start: November 16, 2024 End: November 16, 2024 Dr. Pam Koo MD Attending Provider Active Start: November 16, 2024 End: November 16, 2024 Team Status: Inactive Member Role/Relationship Status Dates Farzaneh Kt VSC, DO Primary Care Provider Active Start: November 25, 2024 End: November 25, 2024 Farzaneh Kt VSC, DO Referring Provider Active Start: November 25, 2024 End: November 25, 2024 Dr. Pam Koo MD Attending Provider Active Start: November 25, 2024 End: November 25, 2024 Team Status: Inactive Member Role/Relationship Status Dates Farzaneh Kt VSC, DO Primary Care Provider Active Start: December 09, 2024 End: December 09, 2024 Farzaneh Meraz VSC, DO Referring Provider Active Start: December 09, 2024 End: December 09, 2024 Justina Guido CNM Attending Provider Active Start: December 09, 2024 End: December 09, 2024 Team Status: Inactive Member Role/Relationship Status Dates Farzanehwilfrid Meraz VSC, DO Primary Care Provider Active Start: December 19, 2024 End: December 19, 2024 Farzaneh Meraz VSC, DO Referring Provider Active Start: December 19, 2024 End: December 19, 2024 Dr. Keshia Galvez , DO Attending Provider Activ e Start: December 19, 2024 End: December 19, 2024 Team Status: Inactive Member Role/Relationship Status Dates Farzaneh Meraz VSC, DO Primary Care Provider Active Start: December 19, 2024 End: December 19, 2024 Dr. Keshia Galvez , DO Attending Provider Activ e Start: December 19, 2024 End: December 19, 2024 Dr. Keshia Galvez , DO Referring Provider Activ e Start: December 19, 2024 End: December 19, 2024 Team Status: Inactive Member Role/Relationship Status Dates Farzaneh Meraz VSC, DO Primary Care Provider Active Start: December 23, 2024 End: December 23, 2024 Justina Guido CNM Attending Provider Active Start: December 23, 2024 End: December 23, 2024 Justina Guido CNM Referring Provider Active Start: December 23, 2024 End: December 23, 2024 Team Status: Inactive Member Role/Relationship Status Dates Farzaneh Meraz VSC, DO Primary Care Provider Active Start: December 29, 2024 End: December 29, 2024 Farzaneh Pereznger VSC, DO Referring Provider Active Start: December 29, 2024 End: December 29, 2024 Reshma Driscoll CNM Attending Provider Active S tart: December 29, 2024 End: December 29, 2024 Team Status: Inactive Member Role/Relationship Status Dates Farzaneh Pereznger LYNNC, DO Primary Care Provider Active Start: December 29, 2024 End: December 29, 2024 Reshma Driscoll CNM Attending Provider Active S tart: December 29, 2024 End: December 29, 2024 Reshma Driscoll CNM Referring Provider Active S tart: December 29, 2024 End: December 29, 2024 Team Status: Inactive Member Role/Relationship Status Dates Farzaneh Pereznger VSC, DO Primary Care Provider Active Start: January 05, 2025 End: January 05, 2025 Farzaneh Pereznger VSC, DO Referring Provider Active Start: January 05, 2025 End: January 05, 2025 Dr. Pam Koo MD Attending Provider Active Start: January 05, 2025 End: January 05, 2025 Team Status: Inactive Member Role/Relationship Status Dates Farzaneh Meraz VSC, DO Primary Care Provider Active Start: January 12, 2025 End: January 12, 2025 Farzaneh Pereznger VSC, DO Referring Provider Active Start: January 12, 2025 End: January 12, 2025 Dr. Pam Koo MD Attending Provider Active Start: January 12, 2025 End: January 12, 2025 FOR RECORDS PERTAINING TO PATIENTS WHO ARE [...] BE BASED ON THE PRIMARY CLINICAL RECORDS. [facility] provides no warranty or guarantee of the accuracy or completeness of information in this document.
--- OUTSIDE RECORDS SUMMARY | 2025-01-19 02:37 | XMS RPT_ITS | CCD ---
Author Organization [facility] CliniSyme Care Team Providers Care Computer Support Specialist Name Role Phone Hoppes, Opal A. Unavailable [...] navailable Dr. Warren Melendez Primary Care Provider Dr. Warren Melendez Referring Provider [phone] Pam Koo Attending Provider Dr. Keshia Galvez Attending Provider Dr. Warren Melendez Primary Care Provider [phone] Dr. Warren Melendez Referring Provider Jarred ALCARAZ, CONNIE Velazquez Attending Provider Dr. Pam Koo Attending Provider Dr. Warren Melendez Primary Care Provider Dr. Warren Melendez Referring Provider Dr. Pam Koo Attending Provider Jarred FAMILY PRACTICE DOCTOR, FAMILY PRACTICE DOCTOR-C Caroline Attending Provider Dr. Keshia Galvez Attending Provider Dr. Warren Melendez Primary Care Provider Dr. Warren Melendez Referring Provider Dr. Pam Koo Attending Provider Guido, CNM Justina Attending Provider Guido, CNM Justina Admit Provider Guido, CNM Justina Other Provider Dr. Warren Melendez Primary Care Provider Guido, CNM Justina Admit Provider Guido, CNM Justina Attending Provider Ugido, CNM Justina Other Provider Dr. Warren Melendez Referring Provider Dr. Moises Mazariegos Attending Provider Dr. Warren Melendez Referring Provider Hay, CARON Horn Attending Provider Dr. Warren Melendez Primary Care Provider WARREN MELENDEZ Primary Care Unavailable NANCY FORTUNE Attending Unavailable KESHIA PERERA [facility] Farzaneh Meraz DO Primary Care Provider Hay COVINGTONM, Justina Attending Provider Guido CNM, Justina Referring Provider Farzaneh Meraz DO Referring Provider Dr. Pam Koo MD Attending Provider Jarred FAMILY PRACTICE DOCTOR-CCaroline Attending Provider Reshma Driscoll CNM Attending Provider Dr. Pam Koo MD Referring Provider Reshma Driscoll CNM Referring Provider Kt DO, Farzaneh Primary Care Provider Kt DO, Farzaneh Referring Provider [place] FAMILY PRACTICE DOCTOR-C, Caroline Attending Provider Americo CNM, Reshma Attending Provider [phone] Hanane MARIE, Dr. Orozco Attending Provider [phone] Dr. Pam Koo MD Referring Provider [phone] Americo CNM, Reshma Referring Provider [phone] Hay CNM, Justina Attending Provider Kt DO, Farzaneh Primary Care Provider Kt DO, Farzaneh Referring Provider [place] FAMILY PRACTICE DOCTOR-C, Caroline Attending Provider King CYNTHIA, Dr. De [...] Hanane MARIE, Dr. Orozco Attending Provider [phone] Americo COVINGTONM, Reshma Referring Provider [phone] Dr. [...] Kt VSC, Farzaneh Primary Care Unavailable Jarred FAMILY PRACTICE DOCTOR, Caroline Attending Unavailable Kt VSC, Farzaneh Primary [...] Referring Unavailable Melendez, Warren Primary Care Unavailable Melendez, Warren Referring Unavailable Keshia Galvez Attending Unavailabl e Kt VSC, Farzaneh Referring Unavailable Kt VSC, Farzaneh Primary Care Unavailable Reshma Driscoll Attending Unavailable Kt VSC, Farzaneh Referring Unavailable Kt VSC, Farzaneh Primary Care Unavailable Jarred FAMILY PRACTICE DOCTORCaroline Attending Unavailable Kt VSC, Farzaneh Primary Care [...] Banana Extract; Translations: [BANANA] Drug Allergy [address] [facility] (1 source) Latex; Translations: [LATEX] Propensity to adverse reactions to drug (disorder) 4 [facility] (1 source) OTHER; Translations: [OTHER] Propensity to adverse reactions to food (disorder) 0 [facility] (12 sources) natural latex rubber Allergy to substance 5 [facility] (1 source) Banana Extract Drug Allergy 5 [facility] (1 source) natural latex rubber Drug allergy (disorder) 5 [facility] Rep[facility] Medications Current Medications Medication Drug [...] October 28, 2024 12:00am As directed Pnv #51-Bhot-Suwyv Acid-Omeg a3 30 mg iron-10 mg iron-1 [...] 2:56pm Start: 04-07-2019 take 1 capsule by [facility] once daily vitamin#30 30 mg iron-10 mg iron-folic acid 1 mg-omg3 capsule Active 1 CAP PO DAILY April 06, 2019 11:00pm Start: 04-07-2019 take 1 capsule by [facility] once daily vitamin#30 30 mg iron-10 mg [...] GTT test 4 times daily diet controlled, [facility] US at 36 weeks. delivery by [...] above: PRR , GERMAN 5, [place], [place] PRR GERMAN 07/13/22 girl [place] [facility] Tayo PRR (awaiting GCC), GERMAN 08/08/24, [place], [place], [place] Other complications of (13 sources) Nausea and [...] sult. no regional anesthesia. dr deng in [place] Other nervous system disorders (20 sources) Compression [...] for annual exam or as needed for COLD [employer] P[employer]ER care. SROM/IAL at term. un medicated. girl:Annabelle [...] Test Name Value Interpretation Reference Range Facility Education Manager Office Visit Reporton 01-12-2025 Education Manager Office Visit Report [facility]'s [address], [address] [place] [address] OFFICE VISIT Date of Service: 01/12/25 MR#: [id number] Acct: [id number] Name: CECY GALLEGOS Rep #: [id number] : 1995 Provider: Dr. Pam hayden MD Age/Sex: 29/F Location: [facility] [place] Status: Signed Intake Vital Signs 12/09/24 10:07 01/05/25 11:37 01/12/25 08:29 Height 5 ft 3 in 5 ft 3 in 5 ft 3 in Weight: 158 lb BMI 28.0 BP 108/67 Intake Visit Reasons: 39 wk ob Line Analyst Required: No Is patient in pain?: No [...] 1-2 times per week duration: 15-30 minutes/day femi/mu-ism: Methodist seatbelt use: always do you feel safe at home: Yes additional social history: [place] History 7 Elective abortions Hx Para 2 [...] live - full term 6# Male none [facility] Alexia hayden [place] 07/10/22 Annabelle Rouse 39 live - full term 7#11oz Female none [facility] Guido [place] 01/11/24 spontaneous SM [...] Problem li (more content not included)... Normal [facility] Laboratory - Chemistry and C hemistry - challengeOrdered By: Pam Koo on 01-05-2025 Glucose Ql (U) Negative [facility] Laboratory - UrinalysisOrder ed By: Pam Koo on 01-05-2025 Protein Ql (U) Negative [facility] Education Manager Office Visit Reporton 01-05-2025 Education Manager Office Visit Report [facility] [address], [address] [place] [address] OFFICE VISIT Date of Service: 01/05/25 MR#: [id number] Acct: [id number] Name: CECY GALLEGOS Rep #: [id number] : 1995 Provider: Dr. 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 Normal [facility] Rule out Beta Strep (Grp. B) on 01-02-2025 POLO Streptococcus agalac tiae (B) Amount Growth Growth Streptococcus agalactiae (B): REACTION Ampicillin Islt LUL <=0.25 cefTRIAXone Islt LUL <=0.12 S Clindamycin Islt LUL >=1 R Clindamycin.induced Susc Islt NEG Linezolid Islt LUL <=2 S Vancomycin Islt LUL 0.5 S Normal [facility] Comment on above: Performed By: #### L 100.0100, L501.9985, L500.4050, L500.4100 #### [facility] [address] [place], [address] Laboratory - Chemistry and C hemistry - challengeOrdered By: Reshma Driscoll on 12-29-2024 Glucose Ql (U) Negative [facility] Laboratory - UrinalysisOrder ed By: Reshma Driscoll on 12-29-2024 Protein Ql (U) Negative [facility] Education Manager Office Visit Reporton 12-29-2024 Education Manager Office Visit Report [facility]'s [address], [address] [place] [address] OFFICE VISIT Date of Service: 12/29/24 MR#: [id number] Acct: [id number] Name: CECY GALLEGOS Rep #: [id number] : 1995 Provider: CARON Wilson ams Age/Sex: 29/F Location: [facility] [place] Status: Signed Intake Vital Signs 11/16/24 09:19 12/19/24 14:13 12/29/24 15:32 12/29/24 15:36 Height 5 ft 3 in 5 ft 3 in 5 ft 3 in 5 ft 3 in Weight: 157 lb 8 oz BMI 27.8 BP 121/69 H Intake Visit Reasons: 37 wk ob Chief Complaint: 37 Week OB Line Analyst Required: No Is patient in pain?: No [...] 1-2 times per week duration: 15-30 minutes/day femi/mu-ism: Methodist seatbelt use: always do you feel safe at home: Yes 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 Normal [facility] Screening beta-hemolytic Str eptococcus cultureOrdered By: Reshma Driscoll on 12-29-2024 Beta-hemolytic Streptococcus culture Streptococcus agalactiae (B) Abnormal [facility] OB Limited With Biometricson 12-23-2024 OB Limited With Biometrics [facility] [address] [place], [place] [address] OB Limited With Biometrics MR#: [id number] Acct: [id number] Name: CECY GALLEGOS Rep #: [id number] : 1995 F 29 From: Lenard jorgensen MD PCP: Farzaneh Meraz DO Status: REG CLI Study: OB Limited With Biometrics Date of Exam: 12/23 Exam# [id number] Ordering Dr: Justina Guido CNM PROCEDURE: OB [...] GURPREET CC: CARON Guido; Farzaneh Meraz DO Business Law Professor: Signed Normal [facility] Laboratory - Chemistry and C hemistry - challengeOrdered By: Keshia Roger on 12-19-2024 Glucose Ql (U) Negative [facility] Laboratory - UrinalysisOrder ed By: Keshia Roger on 12-19-2024 Protein Ql (U) Negative [facility] Education Manager Office Visit Reporton 12-19-2024 Education Manager Office Visit Report [facility]'s [address], [address] [place] [address] OFFICE VISIT Date of Service: 12/19/24 MR#: [id number] Acct: [id number] Name: CECY GALLEGOS Rep #: [id number] : 1995 Provider: Dr. Keshia Wells DO Age/Sex: 29/F [place] [facility] [place] Status: Signed Intake Vital Signs 11/16/24 09:19 12/09/24 10:07 12/19/24 14:11 12/19/24 14:13 Height 5 ft 3 in 5 ft 3 in 5 ft 3 in 5 ft 3 in Weight: 155 lb 6 oz BMI 27.5 BP 114/71 Intake Visit Reasons: 36 wk ob Line Analyst Required: No Is patient in pain?: No [...] Zika: Zika virus screening: Negative : No [facility] Medical History History of miscarriage History of [...] 1-2 times per week duration: 15-30 minutes/day femi/mu-ism: Methodist seatbelt use: always do you feel safe at home: Yes 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 Normal [facility] T4 Free Directon 12-19-2024 T4 FREE DIRECT 0.80 ng/dL Normal 0.76-1.46 [facility] Comment on above: Performed By: #### L 506.0400, L501.9520 #### [facility] [place], [address] T4 freeOrdered By: Moises Mazariegos on 12-19-2024 Free T4 [Mass/Vol] 0.80 ng/dL 0.76-1.46 [facility] TSH DL <= 0.005 mIU/L QnOrde red By: Moises Mazariegos on 12-19-2024 TSH Qn 1.400 uIU/mL 0.300-4.200 [facility] Thyroid Stim Hormone (TSH)on 12-19-2024 TSH 1.400 uIU/mL Normal 0.300-4.200 [facility] Comment on above: Performed By: #### L 506.0400, L501.9520 #### [facility] [address] [place], [address] Laboratory - Chemistry and C hemistry - challengeOrdered By: Justina Guido on 12-09-2024 Glucose Ql (U) Negative [facility] Laboratory - UrinalysisOrder ed By: Justina Guido on 12-09-2024 Protein Ql (U) Negative [facility] Education Manager Office Visit Reporton 12-09-2024 Education Manager Office Visit Report [facility]'s [address], [address] [place] [address] OFFICE VISIT Date of Service: 12/09/24 MR#: [id number] Acct: [id number] Name: CECY GALLEGOS Rep #: [id number] : 1995 Provider: CARON gomez Age/Sex: 29/F Location: [facility] [place] Status: Signed Intake Vital Signs 06/29/24 10:20 11/25/24 10:04 12/09/24 10:07 12/09/24 10:07 Height 5 ft 3 in 5 ft 3 in 5 ft 3 in 5 ft 3 in Weight: 152 lb BMI 26.9 BP 113/70 Intake Visit Reasons: 34 WK OB Line Analyst Required: No Is patient in pain?: No [...] 1-2 times per week duration: 15-30 minutes/day femi/mu-ism: Methodist seatbelt use: always do you feel safe at home: Yes 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 Normal [facility] Laboratory - Chemistry and C hemistry - challengeOrdered By: Pam Koo on 11-25-2024 Glucose Ql (U) Negative [facility] - UrinalysisOrder ed By: Pam Koo on 11-25-2024 Protein Ql (U) Trace [facility] Education Manager Office Visit Reporton 11-25-2024 Education Manager Office Visit Report [facility] [address], [address] [place] [address] OFFICE VISIT Date of Service: 11/25/24 MR#: [id number] Acct: [id number] Name: CECY GALLEGOS Rep #: [id number] : 1995 Provider: Dr. 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 Normal [facility] Laboratory - Chemistry and C hemistry - challengeOrdered By: Pam Koo on 11-16-2024 Glucose Ql (U) Negative [facility] Laboratory - UrinalysisOrder ed By: Pam Koo on 11-16-2024 Protein Ql (U) Negative [facility] Education Manager Office Visit Reporton 11-16-2024 Education Manager Office Visit Report [facility] [address], [address] [place] [address] OFFICE VISIT Date of Service: 11/16/24 MR#: [id number] Acct: [id number] Name: CECY GALLEGOS Rep #: [id number] : 1995 Provider: Dr. Pam hayden MD Age/Sex: 29/F Location: [facility] [place] Status: Signed Intake Vital Signs 06/29/24 10:20 11/04/24 15:31 11/16/24 09:11 11/16/24 09:19 Height 5 ft 3 in 5 ft 3 in 5 ft 3 in 5 ft 3 in Weight: 148 lb 2 oz BMI 26.2 BP 117/72 Intake Visit Reasons: 30 WK OB Line Analyst Required: No Is patient in pain?: No [...] Rx Last Menstrual Period: 04/15/24 : 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 Normal [facility] Endocrinology Visit Reporton 11-04-2024 Endocrinology Visit Report [facility] [address] [place] [address] [address] [place] [address] OFFICE VISIT Date of Service: 11/04/24 MR#: [id number] Acct: [id number] Name: CECY GALLEGOS Rep #: [id number] : 1995 Provider: Mirela Amaya Age/Sex: 29/F Location: [facility] [place] Status: Signed Intake Vital Signs 11/06/23 15:37 10/26/24 10:28 11/04/24 15:31 Height 5 ft 3 in 5 ft 3 in 5 ft 3 in Weight: 150 lb BMI 26.5 BP 107/70 Blood Pressure Location Lt brachial Position Sitting Pulse 83 Pulse Source Monitor Pulse Oximetry (%) 97 Oxygen Delivery Method room air Intake Visit Reasons: 1 Y FU Chief Complaint: Thyroid, GDM Line Analyst Required: No Accompanied by: Self Is patient [...] 1-2 times per week duration: 15-30 minutes/day femi/mu-ism: Methodist seatbelt use: always do you feel safe at home: Yes 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 Normal [facility] Gestational GTT 3HR 100gon 0 10-28-2024 3HR GTT- GEST. High [facility] Comment on above: Order Comment: Y Result [...] #### L 100.0100, L501.9985, L500.4050, L500.4100 #### [facility] [address] [place], [address] Glucose tolerance 3 hours ge stational panelOrdered By: Pam Koo on 10-28-2024 Gestational Glucose Tolerance Test See comment [facility] Comment on above: FASTING 98 Col: 10/11 [...] tolerance 3 hours gestational panel See comment [facility] Comment on above: FASTING 98 Col: 10/11 [...] Auto (Unsp spec) [#/Vol] 1.16 10*3/uL 0.83-4.51 [facility] Absolute neutrophil countOrd ered By: Justina Guido on 10-26-2024 Neutrophils (Bld) [#/Vol] 4.8 10*3/uL 2.0-7.7 [facility] Automated lymphocyte count a s percentage of total leukocytesOrdered By: Justina Guido on 10-26-2024 Lymphocytes/100 WBC Auto (Unsp spec) 16.9 % Low 19-41 [facility] Basophil percentageOrdered B y: Justina Guido on 10-26-2024 Basophils/100 WBC (Bld) 0.7 % 0-1 [facility] CBC W/Diff, Automatedon 10-11 Absolute Lymph 1.16 X10 3/uL Normal 0.83-4.51 [facility] Comment on above: Performed By: #### L 100.0100 #### [facility] [address] [place], [address] Absolute Neut 4.8 X10 3/uL Normal 2.0-7.7 [facility] Comment on above: Performed By: #### L 100.0100 #### [facility] [address] [place], [address] Basophils/100 WBC (Bld) 0.7 % Normal 0-1 [facility] Comment on above: Performed By: #### L 100.0100 #### [facility] [address] [place], [address] Eosinophils/100 WBC (Bld) 5.1 % High 0-5 [facility] Comment on above: Performed By: #### L 100.0100 #### [facility] [address] [place], [address] Erythrocyte distribution width (RBC) [Ratio] 12.1 % Normal 11.6-14.6 [facility] Comment on above: Performed By: #### L 100.0100 #### [facility] [address] [place], [address] Hematocrit (Bld) [Volume fraction] 33.7 % Low 37-47 [facility] Comment on above: Performed By: #### L 100.0100 #### [facility] [address] [place], [address] Hemoglobin (Bld) [Mass/Vol] 11.7 g/dL Low 12.0-15.0 [facility] Comment on above: Performed By: #### L 100.0100 #### [facility] [address] [place], [address] IG% 1.200 High 0.0-0.9 [facility] Comment on above: Result Comment: IG% - Immature Granulocytes (promyelocytes, myelocytes and metamyelocytes) > 1% indicates that a LEFT SHIFT is Present. Performed By: #### L 100.0100 #### [facility] [address] [place], [place] [address]. [place], [address] Lymphocytes/100 WBC (Bld) 16.9 % Low 19-41 [facility] Comment on above: Performed By: #### L 100.0100 #### [facility] [place], [address] MCH (RBC) [Entitic mass] 31.2 pg Normal 27.0-32.0 [facility] Comment on above: Performed By: #### L 100.0100 #### [facility] [address] [place], [address] MCHC (RBC) [Mass/Vol] 34.7 g/dL Normal 32-36 [facility] Comment on above: Performed By: #### L 100.0100 #### [facility] [address] [place], [address] MCV (RBC) [Entitic vol] 89.9 fL Normal 81-99 [facility] Comment on above: Performed By: #### L 100.0100 #### [facility] [address] [place], [address] Monocytes/100 WBC (Bld) 6.1 % Normal 0-10 [facility] Comment on above: Performed By: #### L 100.0100 #### [facility] [address] [place], [address] Neutrophils/100 WBC (Bld) 70.0 % Normal 47-70 [facility] Comment on above: Performed By: #### L 100.0100 #### [facility] [address] [place], [address] Nucleated RBC (Bld) [#/Vol] 0 10*3/uL Normal 0-5 [facility] Comment on above: Performed By: #### L 100.0100 #### [facility] [address] [place], [address] Platelet mean volume (Bld) [Entitic vol] 9.3 fL Normal 6.2-12.0 [facility] Comment on above: Performed By: #### L 100.0100 #### [facility] [address] [place], [address] Platelets (Bld) [#/Vol] 232 10*3/uL Normal 150-450 [facility] Comment on above: Performed By: #### L 100.0100 #### [facility] [address] [place], [address] RBC (Bld) [#/Vol] 3.75 10*6/uL Low 4.2-5.4 [facility] Comment on above: Performed By: #### L 100.0100 #### [facility] [address] [place], [address] RDW SD 39.3 fl Normal 35.1-43.9 [facility] Comment on above: Performed By: #### L 100.0100 #### [facility] [address] [place], [address] WBC (Bld) [#/Vol] 6.9 10*3/uL Normal 4.4-11.0 [facility] Comment on above: Performed By: #### L 100.0100 #### [facility] [address] [place], [place], [address] Eosinophil percentageOrdered By: Justina Guido on 10-26-2024 Eosinophils/100 WBC (Bld) 5.1 % High 0-5 [facility] Erythrocyte distribution wid th (RBC) [Ratio]Ordered By: Justina Guido on 10-26-2024 Erythrocyte distribution width (RBC) [Entitic vol] 39.3 fL 35.1-43.9 [facility] Erythrocyte distribution wid th ratioOrdered By: Justinajordan Guido on 10-26-2024 Erythrocyte distribution width (RBC) [Ratio] 12.1 % 11.6-14.6 [facility] Erythrocyte distribution wid th standard deviationOrdered By: Justina Hay on 10-26-2024 Erythrocyte distribution width (RBC) [Ratio] 39.3 fl 35.1-43.9 [facility] Glucose Challenge Gest 1H 50 reddy 10-26-2024 GLU GEST 50g 1H 152 mg/dL High 70-140 [facility] Comment on above: Performed By: #### L 100.0100, L501.9985, L500.4050, L500.4100 #### [facility] [address] [place], [place], [id number] Glucose measurement at 2 álvaro rs post-dose gestational glucose tolerance testOrdered By: Pam Koo on 10-26-2024 Glucose [Mass/Vol] 152 mg/dL High 70-140 [facility] HIVon 10-26-2024 HIV Non-Reactive Normal Nonreactive [facility] Comment on above: Result Comment: Non- Reactive Reactive Repeatedly reactive samples must be confirmed according to CDC recommended confirmatory algorithms. The subresults for either HIVAG or AHIV can be used as an aid in the selection of the confirmation algorithm for reactive samples. Send out specimens with Reactive results to [facility] for confirmation. Order the HIV antibody detection and differentiation: lc#[id number] Performed By: #### L 100.0100, L501.9985, L500.4050, L500.4100 #### [facility] [address] [place], [address] Hematocrit Auto (Bld) [Volum e fraction]Ordered By: Justina Guido on 10-26-2024 Hematocrit (Bld) [Volume fraction] 33.7 % Low 37-47 [facility] Hemoglobin measurementOrdere d By: Justina Guido on 10-26-2024 Hemoglobin (Bld) [Mass/Vol] 11.7 g/dL Low 12.0-15.0 [facility] Immature granulocytes/100 WB C Auto (Bld)Ordered By: Justina Guido on 10-26-2024 Immature granulocytes/100 WBC (Bld) 1.200 % High 0.0-0.9 [facility] Comment on above: IG% - Immature Granu locytes (promyelocytes, myelocytes and metamyelocytes) > 1% indicates that a LEFT SHIFT is Present. Laboratory - Chemistry and C hemistry - challengeOrdered By: Pam Koo on 10-26-2024 Glucose Ql (U) Negative [facility] - UrinalysisOrder ed By: Pam Koo on 10-26-2024 Protein Ql (U) Negative [facility] Lymphocytes Auto (Unsp spec) [#/Vol]Ordered By: Justina Guido on 10-26-2024 Lymphocytes (Bld) [#/Vol] 1.16 10*3/uL 0.83-4.51 [facility] Lymphocytes/100 WBC Auto (Un sp spec)Ordered By: Justina Guido on 10-26-2024 Lymphocytes/100 WBC (Bld) 16.9 % Low 19-41 [facility] MCV (mean corpuscular volume ) determinationOrdered By: Justina Guido on 10-26-2024 MCV (RBC) [Entitic vol] 89.9 fL 81-99 [facility] Mean corpuscular hemoglobin (MCH) determinationOrdered By: Justina Guido on 10-26-2024 MCH (RBC) [Entitic mass] 31.2 pg 27.0-32.0 [facility] Mean corpuscular hemoglobin concentration (MCHC) determinationOrdered By: Justina Guido on 10-26-2024 MCHC (RBC) [Mass/Vol] 34.7 g/dL 32-36 [facility] Mean platelet volume determi nationOrdered By: Justinagwen Guido on 10-26-2024 Platelet mean volume (Bld) [Entitic vol] 9.3 fL 6.2-12.0 [facility] Monocyte percentageOrdered B y: Justina Guido on 10-26-2024 Monocytes/100 WBC (Bld) 6.1 % 0-10 [facility] Neutrophil percentageOrdered By: Justina Guido on 10-26-2024 Neutrophils/100 WBC (Bld) 70.0 % 47-70 [facility] No Panel InformationOrdered By: Pam Koo on 10-26-2024 HIV (1&2) Antibody Non-Reactive Nonreactive [facility] Comment on above: Non-ReactiveReactive Repeatedly reactive samples must be confirmed according to CDC recommended confirmatory algorithms. The subresults for either HIVAG or AHIV can be used as an aid in the selection of the confirmation algorithm for reactive samples.Send out specimens with Reactive results to [facility] for confirmation.Order the HIV antibody detection and differentiation: #[id number] Nucleated red blood cell per centageOrdered By: Justina Guido on 10-26-2024 Nucleated RBC/100 WBC (Bld) [Ratio] 0 % 0-5 [facility] Education Manager Office Visit Reporton 10-26-2024 Education Manager Office Visit Report [facility]'[address], [address] [place] [address] OFFICE VISIT Date of Service: 10/26/24 MR#: [id number] Acct: [id number] Name: CECY GALLEGOS Rep #: [id number] : 1995 Provider: Dr. 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 Normal [facility] Platelet countOrdered By: Suzan Guido on 10-26-2024 Platelets (Bld) [#/Vol] 232 10*3/uL 150-450 [facility] RBC Auto (Bld) [#/Vol]Ordere d By: Justina Guido on 10-26-2024 RBC (Bld) [#/Vol] 3.75 10*6/uL Low 4.2-5.4 [facility] Syphilis Antibodieson 2024 Syphilis Abs Non-Reactive Normal Nonreactive [facility] Comment on above: Performed By: #### L 100.0100, L501.9985, L500.4050, L500.4100 #### [facility] [address] [place], [place], [id number] T. pallidum abOrdered By: Katherine Koo on 10-26-2024 Syphilis Total Antibody Non-Reactive Nonreactive [facility] White blood cell (WBC) count Ordered By: Justina Guido on 10-26-2024 WBC (Bld) [#/Vol] 6.9 10*3/uL 4.4-11.0 [facility] - Chemistry and C hemistry - challengeOrdered By: Pam Koo on 10-12-2024 Glucose Ql (U) Negative [facility] - UrinalysisOrder ed By: Pam Koo on 10-12-2024 Protein Ql (U) Negative [facility] Education Manager Office Visit Reporton 10-12-2024 Education Manager Office Visit Report [facility] [address], [address] [place] [address] OFFICE VISIT Date of Service: 10/12/24 MR#: [id number] Acct: [id number] Name: CECY GALLEGOS Rep #: [id number] : 1995 Provider: Dr. 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 Normal [facility] - Chemistry and C hemistry - challengeOrdered By: Justina Guido on 09-30-2024 Glucose Ql (U) Negative [facility] - UrinalysisOrder ed By: Justina Guido on 09-30-2024 Protein Ql (U) Negative [facility] Education Manager Office Visit Reporton 09-30-2024 Education Manager Office Visit Report [facility]'s [address], [address] [place] [address] OFFICE VISIT Date of Service: 09/30/24 MR#: [id number] Acct: [id number] Name: CECY GALLEGOS Rep #: [id number] : 1995 Provider: CARON gomez Age/Sex: 29/F Location: [facility] Status: Signed Intake Vital Signs 06/29/24 10:20 09/16/24 11:23 09/30/24 10:59 09/30/24 10:59 Height 5 ft 3 in 5 ft 3 in 5 ft 3 in 5 ft 3 in Weight: 140 lb BMI 24.7 BP 108/69 Intake Visit Reasons: HEARTBEAT CK Line Analyst Required: No Is patient in pain?: No [...] 1-2 times per week duration: 15-30 minutes/day femi/mu-ism: Methodist seatbelt use: always do you feel safe at home: Yes 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 Normal [facility] - Chemistry and C hemistry - challengeOrdered By: Reshma Driscoll on 09-16-2024 Glucose Ql (U) Negative [facility] - UrinalysisOrder ed By: Reshma Driscoll on 09-16-2024 Protein Ql (U) Negative [facility] Education Manager Office Visit Reporton 09-16-2024 Education Manager Office Visit Report [facility] [address], [address] [place] [address] OFFICE VISIT Date of Service: 09/16/24 MR#: [id number] Acct: [id number] Name: CECY GALLEGOS Rep #: [id number] : 1995 Provider: CARON Wilson ams Age/Sex: 29/F Location: [facility] Status: Signed Intake Vital Signs 06/29/24 10:20 [...] 1-2 times per week duration: 15-30 minutes/day femi/mu-ism: Methodist seatbelt use: always do you feel safe at home: Yes 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 Normal [facility] Miscellaneous procedureOrder ed By: Reshma Driscoll on 09-05-2024 Miscellaneous Test Comment SEE SCANNED REPORT [facility] NATERAon 09-05-2024 JUSTO SEE SCANNED REPORT Normal [facility] Comment on above: Performed By: #### L 900.0098 #### [facility] [place], [address] OB Anatomy w/ Transvaginalon 09-02-2024 OB Anatomy w/ Transvaginal [facility] [address] [place] [address] OB Anatomy w/ Transvaginal MR#: [id number] Acct: [id number] Name: CECY GALLEGOS Rep #: [id number] : 1995 F 29 From: Lenard jorgensen MD PCP: Farzaneh Meraz DO Status: REG CLI Study: OB Anatomy w/ Transvaginal Date of Exam: 09/02 Exam# [id number] Ordering Dr: Caroline Stern FAMILY PRACTICE DOCTOR FAMILY PRACTICE DOCTOR -C PROCEDURE: OB ANATOMY W/ TRANSVAGINAL REASON [...] 4 mm choroid plexus cyst. Reading Location: [facility] CC: CONNIE Stern; Farzaneh Meraz DO Business Law Professor: Signed Normal [facility] Thyroid Peroxidase ABon 02-0 THYR PEROX AB 128 IU/mL High 0-34 [facility] Comment on above: Result Comment: Perf ormed at: CB - [facility] [address] [id number] Premium Service Representative: Nicolas Maldonado PhD, Phone: [phone] Performed By: #### L 501.9542, L506.0400 #### [facility] [address] [place] [address], [id number] Direct serum free thyroxine (FT4) measurementOrdered By: Caroline Stern on 08-17-2024 Free T4 [Mass/Vol] 0.94 ng/dL 0.76-1.46 [facility] - Chemistry and C hemistry - challengeOrdered By: Caroline Stern on 08-17-2024 Glucose Ql (U) Negative [facility] - UrinalysisOrder ed By: Caroline Stern on 08-17-2024 Protein Ql (U) Negative [facility] Education Manager Office Visit Reporton 08-17-2024 Education Manager Office Visit Report [facility] [address], [address] [place] [address] OFFICE VISIT Date of Service: 08/17/24 MR#: [id number] Acct: [id number] Name: CECY GALLEGOS Rep #: [id number] : 1995 Provider: CONNIE kimbrough Age/Sex: 29/F Location: [facility] Status: Signed Intake Vital Signs 06/29/24 10:20 08/01/24 13:32 08/17/24 14:58 Height 5 ft 3 in 5 ft 3 in 5 ft 3 in Weight: 133 lb 4 oz BMI 23.6 BP 110/62 Intake Visit Reasons: 18 WK OB Chief Complaint: 18 Week OB Line Analyst Required: No Is patient in pain?: No [...] (Updated 08/17/24 @ 15:25 by Caroline Stern FAMILY PRACTICE DOCTOR, FAMILY PRACTICE DOCTOR-C) History of miscarriage History of miscarriage, currently [...] 1-2 times per week duration: 15-30 minutes/day femi/mu-ism: Methodist seatbelt use: always do you feel safe at home: Yes 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 Normal [facility] Serum or plasma thyroid stim ulating hormone (TSH) measurement (units/volume)Ordered By: Caroline Stern on 08-17-2024 TSH Qn 0.806 uIU/mL 0.358-3.740 [facility] Serum or plasma thyroperoxid ase antibody assay (units/volume)Ordered By: Caroline Stern on 08-17-2024 TPO Ab Qn 128 [IU]/mL High 0-34 [facility] Comment on above: Performed at: [employer] [address] [id number] Director: Nicolas Maldonado PhD, Phone: [phone] T4 Free Directon 08-17-2024 T4 FREE DIRECT 0.94 ng/dL Normal 0.76-1.46 [facility] Comment on above: Performed By: #### L 501.9520, R786.9090 #### [facility] [address] [place] [address], [address] TPO Ab QnOrdered By: Caroline rios on 08-17-2024 Thyroid Peroxidase Antibodies 128 IU/mL High [address] Comment on above: Performed at: [employer] [address] [id number] Director: Nicolas Maldonado PhD, Phone: [phone] TSH QnOrdered By: Caroline kimbrough on 08-17-2024 Thyroid Stimulating Hormone (TSH) 0.806 uIU/mL 0.358-3.740 [facility] Thyroid Stim Hormone (TSH)on 08-17-2024 TSH 0.806 uIU/mL Normal 0.358-3.740 [facility] Comment on above: Performed By: #### L 501.9520, L506.0400 #### [facility] [address] [place], [address] Laboratory - Chemistry and C hemistry - challengeon 08-01-2024 Glucose Ql (U) Negative [facility] - Urinalysison Protein Ql (U) Negative [facility] Education Manager Office Visit Reporton 08-01-2024 Education Manager Office Visit Report [facility] [address], [address] [place] [address] OFFICE VISIT Date of Service: 08/01/24 MR#: [id number] Acct: [id number] Name: CECY GALLEGOS Rep #: [id number] : 1995 Provider: CARON Wilson ams Age/Sex: 29/F Location: [facility] Status: Signed Intake Vital Signs 06/29/24 10:20 07/20/24 15:37 08/01/24 13:30 08/01/24 13:32 Height 5 ft 3 in 5 ft 3 in 5 ft 3 in 5 ft 3 in Weight: 131 lb BMI 23.2 BP 129/80 H Intake Visit Reasons: HEARTBEAT CK Line Analyst Required: No Is patient in pain?: No [...] 1-2 times per week duration: 15-30 minutes/day femi/mu-ism: Methodist seatbelt use: always do you feel safe at home: Yes 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 Normal [facility] - Chemistry and C hemistry - challengeon 07-20-2024 Glucose Ql (U) Negative [facility] - Urinalysison Protein Ql (U) Negative [facility] Education Manager Office Visit Reporton 07-20-2024 Education Manager Office Visit Report [facility] [address], [address] [place] [address] OFFICE VISIT Date of Service: 07/20/24 MR#: [id number] Acct: [id number] Name: CECY GALLEGOS Rep #: [id number] : 1995 Provider: CONNIE kimbrough Age/Sex: 29/F Location: [facility] Status: Signed Intake Vital Signs 01/29/24 10:17 [...] 1-2 times per week duration: 15-30 minutes/day femi/mu-ism: Methodist seatbelt use: always do you feel safe at home: Yes 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 Normal [facility] Progress Noteon 07-01-2024 Director [employer] Authentication Interface Message Text Maternal Medicine Consult [...] mcg of levothyroxine and is monitored by High School Admissions Representative Moises Mazariegos MD. She has no symptoms [...] 0d with an GERMAN of 01/20/2025. 2. [place] rump length measurement are consistent with supplied dating. 3. Anatomic detail is extremely (more content not included)... Normal [facility] Laboratory - Chemistry and C hemistry - challengeon 06-29-2024 Glucose Ql (U) Negative [facility] Laboratory - Urinalysison Protein Ql (U) Negative [facility] Education Manager Office Visit Reporton 06-29-2024 Education Manager Office Visit Report [facility] [address], [address] [place] [address] OFFICE VISIT Date of Service: 06/29/24 MR#: [id number] Acct: [id number] Name: CECY GALLEGOS Rep #: [id number] : 1995 Provider: Dr. 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 Normal [facility] Chlamydia/GC RORY aptimaon CHLAMY,NUC ACID Negative Normal Negative [facility] Comment on above: Performed By: #### L 100.0100, L501.9985, L500.4050, L500.4100 #### [facility] [address] [place], [place], [id number] GC BY NUC ACID Negative Normal Negative [facility] Comment on above: Result Comment: Perf ormed at: =G - [facility] [address] [id number] Premium Service Representative: Isis Aranda MD, Phone: [phone] Performed By: #### L 100.0100, L501.9985, L500.4050, L500.4100 #### [facility] [address] [place], [place], [id number] Thyroid Antibodieson 024 TG AB < 1.0 Normal 0.0-0.9 [facility] Comment on above: Result Comment: Thyr oglobulin Antibody measured by Chidi Erich Methodology It should be noted that the presence of thyroglobulin antibodies may not be pathogenic nor diagnostic, especially at very low levels. The assay auto heater mechanic has found that four percent of individuals without evidence of thyroid disease or autoimmunity will have positive TgAb levels up to 4 IU/mL. Performed at: [address] [id number] Premium Service Representative: Nicolas Maldonado PhD, Phone: [phone] Performed By: #### L 501.9520, L506.0400 #### [facility] [address] [place], [address] THYR PEROX AB 197 IU/mL High 0-34 [facility] Comment on above: Performed By: #### L 501.9520, L506.0400 #### [facility] [address] [place], [place], [id number] Urine Cultureon 06-18-2024 URC Culture exhibits no growth. Normal [facility] Comment on above: Performed By: #### L 100.0100, L501.9985, L500.4050, L500.4100 #### [facility] [address] [place], [place], [id number] Absolute neutrophil countOrd ered By: Justina Guido on 06-17-2024 Neutrophils (Bld) [#/Vol] 4.8 10*3/uL 2.0-7.7 [facility] Basophil percentageOrdered B y: Justina Guido on 06-17-2024 Basophils/100 WBC (Bld) 0.6 % 0-1 [facility] C. trachomatis rRNA RORY+prob e Ql (Unsp spec)Ordered By: Justina Guido on 06-17-2024 Chlamydia DNA (RORY) Negative Negative [facility] CBC W/Diff, Automatedon 12- Absolute Lymph 1.73 X10 3/uL Normal 0.83-4.51 [facility] Comment on above: Performed By: #### L 501.9520, L506.0400 #### [facility] [address] [place], [address] Absolute Neut 4.8 X10 3/uL Normal 2.0-7.7 [facility] Comment on above: Performed By: #### L 501.9520, L506.0400 #### [facility] [address] [place], [address] Basophils/100 WBC (Bld) 0.6 % Normal 0-1 [facility] Comment on above: Performed By: #### L 501.9520, L506.0400 #### [facility] [address] [place], [address] Eosinophils/100 WBC (Bld) 1.2 % Normal 0-5 [facility] Comment on above: Performed By: #### L 501.9520, L506.0400 #### [facility] [address] [place], [address] Erythrocyte distribution width (RBC) [Ratio] 11.8 % Normal 11.6-14.6 [facility] Comment on above: Performed By: #### L 501.9520, L506.0400 #### [facility] [address] [place], [address] Hematocrit (Bld) [Volume fraction] 37.2 % Normal 37-47 [facility] Comment on above: Performed By: #### L 501.9520, L506.0400 #### [facility] [address] [place], [address] Hemoglobin (Bld) [Mass/Vol] 13.1 g/dL Normal 12.0-15.0 [facility] Comment on above: Performed By: #### L 501.9520, L506.0400 #### [facility] [address] [place], [address] IG% 0.300 Normal 0.0-0.9 [facility] Comment on above: Result Comment: IG% - Immature Granulocytes (promyelocytes, myelocytes and metamyelocytes) > 1% indicates that a LEFT SHIFT is Present. Performed By: #### L 501.9520, L506.0400 #### [facility] [address] [place], [address] Lymphocytes/100 WBC (Bld) 24.0 % Normal 19-41 [facility] Comment on above: Performed By: #### L 501.9520, L506.0400 #### [facility] [address] [place], [address] MCH (RBC) [Entitic mass] 30.3 pg Normal 27.0-32.0 [facility] Comment on above: Performed By: #### L 501.9520, L506.0400 #### [facility] [address] [place], [address] MCHC (RBC) [Mass/Vol] 35.2 g/dL Normal 32-36 [facility] Comment on above: Performed By: #### L 501.9520, L506.0400 #### [facility] [address] [place], [address] MCV (RBC) [Entitic vol] 86.1 fL Normal 81-99 [facility] Comment on above: Performed By: #### L 501.9520, L506.0400 #### [facility] [address] [place], [address] Monocytes/100 WBC (Bld) 7.6 % Normal 0-10 [facility] Comment on above: Performed By: #### L 501.9520, L506.0400 #### [facility] [address] [place], [address] Neutrophils/100 WBC (Bld) 66.3 % Normal 47-70 [facility] Comment on above: Performed By: #### L 501.9520, L506.0400 #### [facility] [address] [place], [address] Nucleated RBC (Bld) [#/Vol] 0 10*3/uL Normal 0-5 [facility] Comment on above: Performed By: #### L 501.9520, L506.0400 #### [facility] [address] [place], [address] Platelet mean volume (Bld) [Entitic vol] 9.2 fL Normal 6.2-12.0 [facility] Comment on above: Performed By: #### L 501.9520, L506.0400 #### [facility] [address] [place], [address] Platelets (Bld) [#/Vol] 308 10*3/uL Normal 150-450 [facility] Comment on above: Performed By: #### L 501.9520, L506.0400 #### [facility] [address] [place], [address] RBC (Bld) [#/Vol] 4.32 10*6/uL Normal 4.2-5.4 [facility] Comment on above: Performed By: #### L 501.9520, L506.0400 #### [facility] [address] [place], [address] RDW SD 37.0 fl Normal 35.1-43.9 [facility] Comment on above: Performed By: #### L 501.9520, L506.0400 #### [facility] [address] [place], [address] WBC (Bld) [#/Vol] 7.2 10*3/uL Normal 4.4-11.0 [facility] Comment on above: Performed By: #### L 501.9520, L506.0400 #### [facility] [address] [place], [address] Direct serum free thyroxine (FT4) measurementOrdered By: Justina Guido on 06-17-2024 Free T4 [Mass/Vol] 1.12 ng/dL 0.76-1.46 [facility] Eosinophil percentageOrdered By: Justina Guido on 06-17-2024 Eosinophils/100 WBC (Bld) 1.2 % 0-5 [facility] Erythrocyte distribution wid th ratioOrdered By: Justina Guido on 06-17-2024 Erythrocyte distribution width (RBC) [Ratio] 11.8 % 11.6-14.6 [facility] Erythrocyte distribution wid th standard deviationOrdered By: Justina Guido on 06-17-2024 Erythrocyte distribution width (RBC) [Entitic vol] 37.0 fL 35.1-43.9 [facility] HIV - WCHon 06-17-2024 HIV Non-Reactive Normal Nonreactive [facility] Comment on above: Order Comment: Reaso n for Exam: Performed By: #### L 100.0100, L501.9985, L500.4050, L500.4100 #### [facility] [address] [place], [place], [id number] HIV 1+2 Ab+HIV1 p24 Ag IA Ql Ordered By: Justina Guido on 06-17-2024 HIV (1&2) Antibody Non-Reactive Nonreactive [facility] Hematocrit Auto (Bld) [Volum e fraction]Ordered By: Justina Guido on 06-17-2024 Hematocrit (Bld) [Volume fraction] 37.2 % 37-47 [facility] Hemoglobin measurementOrdere d By: Justina Guido on 06-17-2024 Hemoglobin (Bld) [Mass/Vol] 13.1 g/dL 12.0-15.0 [facility] Hepatitis B Surface Antigeno n 06-17-2024 HEP B Surf Ag Non-Reactive [facility] Comment on above: Order Comment: Reaso n for Exam: Performed By: #### L 100.0100, L501.9985, L500.4050, L500.4100 #### [facility] [address] [place], [place], [id number] Hepatitis B surface antigen detectionOrdered By: Justina Guido on 06-17-2024 Hepatitis B Surface Antigen Non-Reactive Nonreactive [facility] Hepatitis C Antibodyon 06-17 Hepatitis C AB Non-Reactive Normal Nonreactive [facility] Comment on above: Order Comment: Reaso n for Exam: Result Comment: Non Reactive: < 0.8 Equivocal: >/= 0.8 to < 1.0 Reactive: >/= 1.0 The [facility] requires that a reactive/equivocal HCV antibody result be sent out for confirmation. HCV Quant by PCR testing. Performed By: #### L 100.0100, L501.9985, L500.4050, L500.4100 #### [facility] [address] [place], [address] Hepatitis C virus antibody a ssayOrdered By: Justina Guido on 06-17-2024 Hepatitis C Antibody Non-Reactive Nonreactive [facility] Comment on above: Non Reactive: < 0.8 Equivocal: >/= 0.8 to < 1.0 Reactive: >/= 1.0The [facility] requires that a reactive/equivocal HCV antibody result be sent out for confirmation. HCV Quant by PCR testing. Immature granulocytes/100 WB C Auto (Bld)Ordered By: Justina Guido on 06-17-2024 Immature granulocytes/100 WBC (Bld) 0.300 % 0.0-0.9 [facility] Comment on above: IG% - Immature Granu locytes (promyelocytes, myelocytes and metamyelocytes) > 1% indicates that a LEFT SHIFT is Present. L509.8000on 06-17-2024 Syphilis Abs Non-Reactive Normal [facility] Comment on above: Order Comment: Reaso n for Exam: Performed By: #### L 501.9520, L506.0400 #### [facility] [address] [facility] [place], [address] Lymphocytes Auto (Unsp spec) [#/Vol]Ordered By: Justina Guido on 06-17-2024 Lymphocytes (Bld) [#/Vol] 1.73 10*3/uL 0.83-4.51 [facility] Lymphocytes/100 WBC Auto (Un sp spec)Ordered By: Justina Guido on 06-17-2024 Lymphocytes/100 WBC (Bld) 24.0 % 19-41 [facility] MCV (mean corpuscular volume ) determinationOrdered By: Justina Guido on 06-17-2024 MCV (RBC) [Entitic vol] 86.1 fL 81-99 [facility] Mean corpuscular hemoglobin (MCH) determinationOrdered By: Justina Guido on 06-17-2024 MCH (RBC) [Entitic mass] 30.3 pg 27.0-32.0 [facility] Mean corpuscular hemoglobin concentration (MCHC) determinationOrdered By: Justina Guido on 06-17-2024 MCHC (RBC) [Mass/Vol] 35.2 g/dL 32-36 [facility] Mean platelet volume determi nationOrdered By: Justina Guido on 06-17-2024 Platelet mean volume (Bld) [Entitic vol] 9.2 fL 6.2-12.0 [facility] Monocyte percentageOrdered B y: Justina Guido on 06-17-2024 Monocytes/100 WBC (Bld) 7.6 % 0-10 [facility] Neisseria gonorrhoeae nuclei c acid detection by amplified probe techniqueOrdered By: Justina Guido on 06-17-2024 N. gonorrhoeae DNA RORY+probe Ql (Unsp spec) Negative Negative [facility] Comment on above: Performed at: =[address] [id number] Director: Isis Aranda MD, Phone: [phone] Neutrophil percentageOrdered By: Justina Guido on 06-17-2024 Neutrophils/100 WBC (Bld) 66.3 % 47-70 [facility] Nucleated red blood cell per centageOrdered By: Justina Guido on 06-17-2024 Nucleated RBC/100 WBC (Bld) [Ratio] 0 % 0-5 [facility] Education Manager Office Visit Reporton 06-17-2024 Education Manager Office Visit Report [facility]'[address], [address] [place] [address] OFFICE VISIT Date of Service: 06/17/24 MR#: [id number] Acct: [id number] Name: CECY GALLEGOS Rep #: [id number] : 1995 Provider: CARON gomez Age/Sex: 29/F [place] [facility] [place] Status: Signed Intake Vital Signs 01/29/24 10:17 06/17/24 08:47 Height 5 ft 3 in 5 ft 3 in Weight: 128 lb 4 oz BMI 22.7 BP 127/84 H Intake Visit Reasons: New OB, LMP 04/15, GERMAN 01/20/25 Line Analyst Required: No Is patient in pain?: No [...] 1-2 times per week duration: 15-30 minutes/day femi/mu-ism: [employer] seatbelt use: always do you feel safe at home: Yes 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 Normal [facility] Platelet countOrdered By: Suzan Guido on 06-17-2024 Platelets (Bld) [#/Vol] 308 10*3/uL 150-450 [facility] RBC Auto (Bld) [#/Vol]Ordere d By: Justina Guido on 06-17-2024 RBC (Bld) [#/Vol] 4.32 10*6/uL 4.2-5.4 [facility] Rubella IgGon 06-17-2024 Rubella IgG Reactive Normal Nonreactive [facility] Comment on above: Order Comment: Reaso n for Exam: Result Comment: Anti body Results Interpretation of Immune Status Non Reactive Presumed Non-Immune Equivocal Equivocal Reactive Presumed Immune Performed By: #### L 501.9520, L506.0400 #### [facility] [address] [place], [address] Rubella immune status IgGOrd ered By: Justina Guido on 06-17-2024 Rubella IgG Antibody Reactive Nonreactive [facility] Comment on above: Antibody Results Int erpretation of Immune Status Non Reactive Presumed Non-Immune Equivocal Equivocal Reactive Presumed Immune T4 Free Directon 06-17-2024 T4 FREE DIRECT 1.12 ng/dL Normal 0.76-1.46 [facility] Comment on above: Performed By: #### L 501.9520, L506.0400 #### [facility] [address] [place], [address] TPO Ab QnOrdered By: Justina Guido on 06-17-2024 Thyroid Peroxidase Antibodies 197 IU/mL High 0-34 [facility] TSH QnOrdered By: Justina trotter on 06-17-2024 Thyroid Stimulating Hormone (TSH) 1.420 uIU/mL 0.358-3.740 [facility] Thyroglobulin Ab serumOrdere d By: Justina Guido on 06-17-2024 Thyroglobulin Antibody < 1.0 IU/mL 0.0-0.9 [facility] Comment on above: Thyroglobulin Antibo dy measured by Chidi CoulterMethodologyIt should be noted that the presence of thyroglobulinantibodies may not be pathogenic nor diagnostic, especiallyat very low levels. The assay auto heater mechanic has found thatfour percent of individuals without evidence of thyroiddisease or autoimmunity will have positive TgAb levels upto 4 IU/mL.Performed at: [facility] [id number] Director: Nicolas Maldonado PhD, Phone: [phone] Thyroid Stim Hormone (TSH)on 06-17-2024 TSH 1.420 uIU/mL Normal 0.358-3.740 [facility] Comment on above: Performed By: #### L 501.9520, L506.0400 #### [facility] [address] [place], [address] Treponema sp Ab Ql (S)Ordere d By: Justina Guido on 06-17-2024 Syphilis Total Antibody Non-Reactive [facility] Type AND Screenon 06-17-2024 ABO and Rh group Nom (Bld) Blood group A Rh(D) positive Normal [facility] Comment on above: Order Comment: PN Performed By: #### L 501.9520, L506.0400 #### [facility] [address] [place], [address] Urine cultureOrdered By: Katie Guido on 06-17-2024 Bacteria identified Cx Nom (U) Culture exhibits no growth. [facility] White blood cell (WBC) count Ordered By: Justina Guido on 06-17-2024 WBC (Bld) [#/Vol] 7.2 10*3/uL 4.4-11.0 [facility] HCG ( test) QlOrder ed By: Justina Guido on 05-25-2024 Human Chorionic Gonadotropin, Quant 87598 mIU/mL High <4 [facility] Comment on above: hCG levels with Gest ational AgeGestational Age hCG mIU/mL (IU/L)0.2 - 1 week 5 - 501-2 weeks 50 - 5002-3 weeks 100 - 67491-9 weeks 500 - 336225-3 weeks 1000 - 805327-3 weeks 49401 - 100,0006-8 weeks 19261 - 200,0002-3 months 98080 - 100,000 hCG Titer Quant., Serumon HCG QUANT. 92611 mIU/mL High 1-3 [facility] Comment on above: Result Comment: hCG levels with Gestational Age Gestational Age hCG mIU/mL (IU/L) 0.2 - 1 week 5 - 50 1-2 weeks 50 - 500 2-3 weeks 100 - 5000 3-4 weeks 500 - 25832 4-5 weeks 1000 - 66726 5-6 weeks 13803 - 100,000 6-8 weeks 95958 - 200,000 2-3 months 83617 - 100,000 Performed By: #### L 100.0100, L501.9985, L500.4050, L500.4100 #### [facility] [address] [place], [place], [id number] HCG ( test) QlOrder ed By: Justina Guido on 05-23-2024 Human Chorionic Gonadotropin, Quant 6957 mIU/mL High <4 [facility] Comment on above: hCG levels with Gest ational AgeGestational Age hCG mIU/mL (IU/L)0.2 - 1 week 5 - 501-2 weeks 50 - 5002-3 weeks 100 - 05037-4 weeks 500 - 474376-5 weeks 1000 - 155383-3 weeks 41220 - 100,0006-8 weeks 79289 - 200,0002-3 months 14782 - 100,000 hCG Titer Quant., Serumon HCG QUANT. 6957 mIU/mL High 1-3 [facility] Comment on above: Result Comment: hCG levels with Gestational Age Gestational Age hCG mIU/mL (IU/L) 0.2 - 1 week 5 - 50 1-2 weeks 50 - 500 2-3 weeks 100 - 5000 3-4 weeks 500 - 39477 4-5 weeks 1000 - 88904 5-6 weeks 47629 - 100,000 6-8 weeks 81763 - 200,000 2-3 months 30949 - 100,000 Performed By: #### L 100.0100, L501.9985, L500.4050, L500.4100 #### [facility] [address] [place], [place], [id number] Anticardiolipin IgG, IgMon 1 - ANTICARDIO IgG < 9 Normal 0-14 [facility] Comment on above: Result Comment: Nega tive: <15 Indeterminate: 15 - 20 Low-Med Positive: >20 - 80 High Positive: >80 Performed By: #### L 100.0100, L501.9985, L500.4050, L500.4100 #### [facility] [address] [place], [address] Anticardio.IgM < 9 Normal 0-12 [facility] Comment on above: Result Comment: Nega tive: <13 Indeterminate: 13 - 20 Low-Med Positive: >20 - 80 High Positive: >80 Performed at: [facility] [address] [id number] [employer] Representative: Jojo Montanez MD, Phone: [phone] Performed at: [facility] [id number] [employer] Representative: Nicolas Maldonado PhD, Phone: [phone] Performed By: #### L 100.0100, L501.9985, L500.4050, L500.4100 #### [facility] [address] [place], [address] Beta-2 Glycoprot IgG, A, 05-07-2024 B2 GLYCO I IGA <9 Normal 0-25 [facility] Comment on above: Result Comment: Resu lt Units: GPI IgA units The reference interval reflects a 3SD or 99th percentile interval, which is thought to represent a potentially clinically significant result in accordance with the International Consensus Statement on the classification criteria for definitive antiphospholipid syndrome (APS). J Thromb Haem 2006;4:295-306. Performed By: #### L 100.0100, L501.9985, L500.4050, L500.4100 #### [facility] [address] [place], [address] B2 GLYCO I IGG <9 Normal 0-20 [facility] Comment on above: Result Comment: Resu lt Units: GPI IgG units The reference interval reflects a 3SD or 99th percentile interval, which is thought to represent a potentially clinically significant result in accordance with the International Consensus Statement on the classification criteria for definitive antiphospholipid syndrome (APS). J Thromb Haem 2006;4:295-306. Performed By: #### L 100.0100, L501.9985, L500.4050, L500.4100 #### [facility] [address] [place], [place], [id number] (893) B2 GLYCO I IGM <9 Normal 0-32 [facility] Comment on above: Result Comment: Resu lt Units: GPI IgM units The reference interval reflects a 3SD or 99th percentile interval, which is thought to represent a potentially clinically significant result in accordance with the International Consensus Statement on the classification criteria for definitive antiphospholipid syndrome (APS). J Thromb Haem 2006;4:295-306. Performed By: #### L 100.0100, L501.9985, L500.4050, L500.4100 #### [facility] [address] [place], [address] Lupus Anticoagulant Compon 1 0- aPTT Coag (Bld) [Time] 35.7 s Normal 0.0-43.5 [facility] Comment on above: Performed By: #### L 100.0100, L501.9985, L500.4050, L500.4100 #### [facility] [address] [place], [address] DILUTE PT (dPT) 37.5 sec Normal 0.0-47.6 [facility] Comment on above: Performed By: #### L 100.0100, L501.9985, L500.4050, L500.4100 #### [facility] [address] [place], [address] dPT Conf. Ratio 0.97 Ratio Normal 0.00-1.34 [facility] Comment on above: Performed By: #### L 100.0100, L501.9985, L500.4050, L500.4100 #### [facility] [address] [place], [address] DRVVT 33.4 sec Normal 0.0-47.0 [facility] Comment on above: Performed By: #### L 100.0100, L501.9985, L500.4050, L500.4100 #### [facility] [address] [place], [address] Interpretation Comment: Normal . [facility] Comment on above: Result Comment: No l upus anticoagulant was detected. Performed By: #### L 100.0100, L501.9985, L500.4050, L500.4100 #### [facility] [address] [place], [address] THROMBIN TIME 19.6 sec Normal 0.0-23.0 [facility] Comment on above: Performed By: #### L 100.0100, L501.9985, L500.4050, L500.4100 #### [facility] [address] [place], [address] CBC W/Diff, Automatedon 10-2 Absolute Lymph 1.49 X10 3/uL Normal 0.83-4.51 [facility] Comment on above: Performed By: #### L 100.0100, L501.9985, L500.4050, L500.4100 #### [facility] [address] [place], [address] Absolute Neut 2.6 X10 3/uL Normal 2.0-7.7 [facility] Comment on above: Performed By: #### L 100.0100, L501.9985, L500.4050, L500.4100 #### [facility] [address] [place], [address] Basophils/100 WBC (Bld) 0.6 % Normal 0-1 [facility] Comment on above: Performed By: #### L 100.0100, L501.9985, L500.4050, L500.4100 #### [facility] [address] [place], [address] Eosinophils/100 WBC (Bld) 4.2 % Normal 0-5 [facility] Comment on above: Performed By: #### L 100.0100, L501.9985, L500.4050, L500.4100 #### [facility] [address] [place], [address] Erythrocyte distribution width (RBC) [Ratio] 11.9 % Normal 11.6-14.6 [facility] Comment on above: Performed By: #### L 100.0100, L501.9985, L500.4050, L500.4100 #### [facility] [address] [place], [address] Hematocrit (Bld) [Volume fraction] 37.2 % Normal 37-47 [facility] Comment on above: Performed By: #### L 100.0100, L501.9985, L500.4050, L500.4100 #### [facility] [address] [place], [address] Hemoglobin (Bld) [Mass/Vol] 12.8 g/dL Normal 12.0-15.0 [facility] Comment on above: Performed By: #### L 100.0100, L501.9985, L500.4050, L500.4100 #### [facility] [address] [place], [address] IG% 0.200 Normal 0.0-0.9 [facility] Comment on above: Result Comment: IG% - Immature Granulocytes (promyelocytes, myelocytes and metamyelocytes) > 1% indicates that a LEFT SHIFT is Present. Performed By: #### L 100.0100, L501.9985, L500.4050, L500.4100 #### [facility] [address] [place], [address] Lymphocytes/100 WBC (Bld) 31.4 % Normal 19-41 [facility] Comment on above: Performed By: #### L 100.0100, L501.9985, L500.4050, L500.4100 #### [facility] [address] [place], [address] MCH (RBC) [Entitic mass] 30.3 pg Normal 27.0-32.0 [facility] Comment on above: Performed By: #### L 100.0100, L501.9985, L500.4050, L500.4100 #### [facility] [address] [place], [address] MCHC (RBC) [Mass/Vol] 34.4 g/dL Normal 32-36 [facility] Comment on above: Performed By: #### L 100.0100, L501.9985, L500.4050, L500.4100 #### [facility] [address] [place], [address] MCV (RBC) [Entitic vol] 87.9 fL Normal 81-99 [facility] Comment on above: Performed By: #### L 100.0100, L501.9985, L500.4050, L500.4100 #### [facility] [address] [place], [address] Monocytes/100 WBC (Bld) 8.6 % Normal 0-10 [facility] Comment on above: Performed By: #### L 100.0100, L501.9985, L500.4050, L500.4100 #### [facility] [address] [place], [address] Neutrophils/100 WBC (Bld) 55.0 % Normal 47-70 [facility] Comment on above: Performed By: #### L 100.0100, L501.9985, L500.4050, L500.4100 #### [facility] [address] [place], [address] Nucleated RBC (Bld) [#/Vol] 0 10*3/uL Normal 0-5 [facility] Comment on above: Performed By: #### L 100.0100, L501.9985, L500.4050, L500.4100 #### [facility] [address] [place], [address] Platelet mean volume (Bld) [Entitic vol] 9.2 fL Normal 6.2-12.0 [facility] Comment on above: Performed By: #### L 100.0100, L501.9985, L500.4050, L500.4100 #### [facility] [address] [place], [address] Platelets (Bld) [#/Vol] 260 10*3/uL Normal 150-450 [facility] Comment on above: Performed By: #### L 100.0100, L501.9985, L500.4050, L500.4100 #### [facility] [address] [place], [address] RBC (Bld) [#/Vol] 4.23 10*6/uL Normal 4.2-5.4 [facility] Comment on above: Performed By: #### L 100.0100, L501.9985, L500.4050, L500.4100 #### [facility] [address] [place], [address] RDW SD 38.0 fl Normal 35.1-43.9 [facility] Comment on above: Performed By: #### L 100.0100, L501.9985, L500.4050, L500.4100 #### [facility] [address] [place], [address] WBC (Bld) [#/Vol] 4.7 10*3/uL Normal 4.4-11.0 [facility] Comment on above: Performed By: #### L 100.0100, L501.9985, L500.4050, L500.4100 #### [facility] [address] [place], [address] Comprehensive Metabolic [facility] 05-04-2024 Albumin [Mass/Vol] 3.9 g/dL Normal 3.2-5.0 [facility] Comment on above: Performed By: #### L 100.0100, L501.9985, L500.4050, L500.4100 #### [facility] [address] [place], [address] Albumin/Globulin [Mass ratio] 1.2 {ratio} Normal 0.9-2.4 [facility] Comment on above: Performed By: #### L 100.0100, L501.9985, L500.4050, L500.4100 #### [facility] [address] [place], [address] ALK P 50 U/L Normal 45-117 [facility] Comment on above: Performed By: #### L 100.0100, L501.9985, L500.4050, L500.4100 #### [facility] [address] [place], [address] ALT [Catalytic activity/Vol] 26 U/L Normal 13-56 [facility] Comment on above: Performed By: #### L 100.0100, L501.9985, L500.4050, L500.4100 #### [facility] [address] [place], [address] AST [Catalytic activity/Vol] 20 U/L Normal 15-37 [facility] Comment on above: Performed By: #### L 100.0100, L501.9985, L500.4050, L500.4100 #### [facility] [address] [place], [address] Bilirubin [Mass/Vol] 0.70 mg/dL Normal 0.20-1.00 [facility] Comment on above: Result Comment: For patients on eltrombopag therapy, use of Dimension Cornelius TBIL is not recommended. Performed By: #### L 100.0100, L501.9985, L500.4050, L500.4100 #### [facility] [address] [place], [address] BUN/CRE 13.9 RATIO Normal 10-20 [facility] Comment on above: Performed By: #### L 100.0100, L501.9985, L500.4050, L500.4100 #### [facility] [address] [place], [address] CA,Total 9.0 mg/dL Normal 8.5-10.1 [facility] Comment on above: Performed By: #### L 100.0100, L501.9985, L500.4050, L500.4100 #### [facility] [address] [place], [address] Chloride [Moles/Vol] 108 mmol/L High 98-107 [facility] Comment on above: Performed By: #### L 100.0100, L501.9985, L500.4050, L500.4100 #### [facility] [address] [place], [address] CO2 [Moles/Vol] 27.0 mmol/L Normal 21.0-32.0 [facility] Comment on above: Performed By: #### L 100.0100, L501.9985, L500.4050, L500.4100 #### [facility] [address] [place], [address] Creatinine [Mass/Vol] 0.58 mg/dL Normal 0.55-1.02 [facility] Comment on above: Result Comment: The validity of the calculated GFR GFRAA in patients over 70 years has not been determined. Clinical correlation is essential. Performed By: #### L 100.0100, L501.9985, L500.4050, L500.4100 #### [facility] [address] [place], [address] EST GFR - AA 157 mL/min Normal >60 [facility] Comment on above: Result Comment: Afri can Pakistani GFR Calc Performed By: #### L 100.0100, L501.9985, L500.4050, L500.4100 #### [facility] [address] [place], [address] GAP 6 Normal 5-15 [facility] Comment on above: Performed By: #### L 100.0100, L501.9985, L500.4050, L500.4100 #### [facility] [address] [place], [address] GFR/1.73 sq M.predicted among non-blacks MDRD (S/P/Bld) [Vol rate/Area] 130 mL/min/{1.73_m2} Normal >60 [facility] Comment on above: Result Comment: Non- GFR Calc Performed By: #### L 100.0100, L501.9985, L500.4050, L500.4100 #### [facility] [address] [place], [address] Globulin (S) [Mass/Vol] 3.3 g/dL Normal 2.2-4.2 [facility] Comment on above: Performed By: #### L 100.0100, L501.9985, L500.4050, L500.4100 #### [facility] [address] [place], [address] Glucose [Mass/Vol] 74 mg/dL Normal 74-106 [facility] Comment on above: Performed By: #### L 100.0100, L501.9985, L500.4050, L500.4100 #### [facility] [address] [place], [address] Potassium [Moles/Vol] 3.6 mmol/L Normal 3.5-5.1 [facility] Comment on above: Performed By: #### L 100.0100, L501.9985, L500.4050, L500.4100 #### [facility] [address] [place], [address] Sodium [Moles/Vol] 140 mmol/L Normal 136-145 [facility] Comment on above: Performed By: #### L 100.0100, L501.9985, L500.4050, L500.4100 #### [facility] [address] [place], [address] T PROT 7.2 g/dL Normal 6.4-8.2 [facility] Comment on above: Performed By: #### L 100.0100, L501.9985, L500.4050, L500.4100 #### [facility] [address] [place], [address] Urea nitrogen [Mass/Vol] 8 mg/dL Normal 7-18 [facility] Comment on above: Performed By: #### L 100.0100, L501.9985, L500.4050, L500.4100 #### [facility] [address] [place], [address] Hemoglobin A1con 05-04-2024 HbA1c (Bld) [Mass fraction] 5.1 % Normal 3.8-5.6 [facility] Comment on above: Result Comment: Norm al < 5.7 % Prediabetic 5.7 - 6.4 % Diabetic >or= 6.5 % Please note range changes. Performed By: #### L 100.0100, L501.9985, L500.4050, L500.4100 #### [facility] [address] [place], [address] Lipid Profileon 05-04-2024 Cholesterol [Mass/Vol] 156 mg/dL Normal 200 [facility] Comment on above: Result Comment: <200 mg/dL Desirable 200-240 mg/dL Borderline >240 mg/dL High Risk Performed By: #### L 100.0100, L501.9985, L500.4050, L500.4100 #### [facility] [address] [place], [address] Cholesterol in HDL [Mass/Vol] 52 mg/dL Normal [facility] Comment on above: Result Comment: The drugs N-Acetylcysteine and Metamizole may falsely depress this assay. Reference Range HDL <40 mg/dL Low HDL Cholesterol HDL >or= 60 mg/dL High HDL Cholesterol Performed By: #### L 100.0100, L501.9985, L500.4050, L500.4100 #### [facility] [address] [place], [address] Cholesterol in LDL [Mass/Vol] 89 mg/dL Normal 0-130 [facility] Comment on above: Performed By: #### L 100.0100, L501.9985, L500.4050, L500.4100 #### [facility] [address] [place], [address] Cholesterol in VLDL [Mass/Vol] 15 mg/dL Normal 5-40 [facility] Comment on above: Performed By: #### L 100.0100, L501.9985, L500.4050, L500.4100 #### [facility] [address] [place], [address] Triglyceride [Mass/Vol] 76 mg/dL Normal [facility] Comment on above: Result Comment: The drugs N-Acetylcysteine and Metamizole may falsely depress this assay. Serum Triglycerides Reference Interval Normal <150 mg/dL Borderline high 150 - 199 mg/dL High 200 - 499 mg/dL Very High > or = 500 mg/dL Performed By: #### L 100.0100, L501.9985, L500.4050, L500.4100 #### [facility] [address] [place], [address] T4 Free Directon 05-04-2024 T4 FREE DIRECT 0.97 ng/dL Normal 0.76-1.46 [facility] Comment on above: Performed By: #### L 501.9520, L506.0400 #### [facility] [address] [place], [address] Thyroid Stim Hormone (TSH)on 05-04-2024 TSH 1.460 uIU/mL Normal 0.358-3.740 [facility] Comment on above: Performed By: #### L 501.9520, L506.0400 #### [facility] [address] [place], [address] Education Manager Office Visit Reporton 01-29-2024 Education Manager Office Visit Report [facility] [address] [place] [address] OFFICE VISIT Date of Service: 01/29/24 MR#: [id number] Acct: [id number] Name: CECY GALLEGOS Rep #: [id number] : 1995 Provider: Dr. Keshia Wells DO Age/Sex: 28/F [place] [facility] [place] Status: Signed Intake Vital Signs 11/06/23 15:37 01/11/24 12:40 01/29/24 10:15 01/29/24 10:17 Height 5 ft 3 in 5 ft 3 in 5 ft 3 in 5 ft 3 in Weight: 126 lb 6 oz BMI 22.4 BP 127/74 H Intake Visit Reasons: D C Line Analyst Required: No Is patient in pain?: No [...] menopausal: No Patient : No : No [facility] Medical History (Updated 01/29/24 @ 10:42 by [...] 1-2 times per week duration: 15-30 minutes/day femi/mu-ism: [employer] seatbelt use: always do you feel safe at home: Yes 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 Normal [facility] Cervical or vaginal specimen microscopic examination by liquid based cytology (reportOrdered By: Justina Guido on 09-25-2023 Cytology report Cyto stain.thin prep Doc (Cvx/Vag) Comment . [facility] Comment on above: Criteria not met, HP V Genotype not performed.Performed at: - [facility] [id number] Director: Isis Aranda MD, Phone: [phone] at: = - [facility] [address] [place], [place] [id number] Director: Isis Aranda MD, Phone: [phone] Cervical or vagninal specime n microscopic examination by cytology stain (reported asOrdered By: Justina Guido on 09-25-2023 Cytology report Cyto stain Doc (Cvx/Vag) Comment . [facility] Comment on above: The Pap smear is [...] DNA Probe+sig amp Ql (Cvx) Negative Negative [facility] Comment on above: This nucleic acid am plification test detects fourteen high- risk HPV types (16,18,31,33,35,39,45,51,52,56,58,59,66,68)without differentiation. Laboratory - CytologyOrdered By: Justina Guido on 09-25-2023 [place]er Cyto stain Nom (Cvx/Vag) [ID] Comment . [facility] Comment on above: Felicia Thompson, [employer] hnologist (ASCP) Laboratory - Miscellaneous t estsOrdered By: Justina Guido on 09-25-2023 Service comment (Unsp spec) [Interp] . . [facility] Thin prep Papanicolaou smear with manual screeningOrdered By: Justina Guido on 09-25-2023 Thin prep Papanicolaou smear with manual screening Comment . [facility] Comment on above: NEGATIVE FOR INTRAEP ITHELIAL LESION OR MALIGNANCY. This liquid based Th inPrep(R) pap test was screened withthe use of an image guided system. No Panel InformationOrdered By: Justina Guido on 09-21-2023 Free Triiodothyronine (T3) pg/dL 2.8 pg/mL 2.18-3.98 [facility] Serum or plasma thyroid stim ulating hormone (TSH) measurement (units/volume)Ordered By: Justina Guido on 09-21-2023 TSH Qn 2.17 uIU/mL 0.358-3.74 [facility] Thin prep Papanicolaou smear with manual screeningOrdered By: Justina Guido on 09-21-2023 Thin prep Papanicolaou smear with manual screening 1.01 ng/dL 0.76-1.46 [facility] Serum or plasma choriogonado tropin detectionOrdered By: Caroline Stern on 08-17-2023 HCG ( test) Ql < 1 mIU/mL <4 [facility] Comment on above: hCG levels with Gest ational AgeGestational Age hCG mIU/mL (IU/L)0.2 - 1 week 5 - 501-2 weeks 50 - 5002-3 weeks 100 - 13583-8 weeks 500 - 416643-7 weeks 1000 - 656182-7 weeks 26231 - 100,0006-8 weeks 71223 - 200,0002-3 months 66328 - 100,000 Serum or plasma choriogonado tropin detectionOrdered By: Caroline Stern on 08-03-2023 HCG ( test) Ql 31 mIU/mL <4 [facility] Comment on above: hCG levels with Gest ational AgeGestational Age hCG mIU/mL (IU/L)0.2 - 1 week 5 - 501-2 weeks 50 - 5002-3 weeks 100 - 60461-0 weeks 500 - 082434-3 weeks 1000 - 198476-0 weeks 42954 - 100,0006-8 weeks 36032 - 200,0002-3 months 16636 - 100,000 Serum or plasma choriogonado tropin detectionOrdered By: Caroline Stern on 07-29-2023 HCG ( test) Ql 216 mIU/mL <4 [facility] Comment on above: hCG levels with Gest ational AgeGestational Age hCG mIU/mL (IU/L)0.2 - 1 week 5 - 501-2 weeks 50 - 5002-3 weeks 100 - 43136-9 weeks 500 - 417657-2 weeks 1000 - 152501-4 weeks 49724 - 100,0006-8 weeks 57156 - 200,0002-3 months 33134 - 100,000 Serum or plasma choriogonado tropin detectionOrdered By: Caroline Stern on 07-27-2023 HCG ( test) Ql 165 mIU/mL <4 [facility] Comment on above: hCG levels with Gest ational AgeGestational Age hCG mIU/mL (IU/L)0.2 - 1 week 5 - 501-2 weeks 50 - 5002-3 weeks 100 - 46011-5 weeks 500 - 139365-6 weeks 1000 - 960967-8 weeks 67382 - 100,0006-8 weeks 67219 - 200,0002-3 months 88890 - 100,000 Laboratory - Chemistry and C hemistry - challengeOrdered By: Moises Mazariegos on 05-25-2023 Free T4 [Mass/Vol] 0.87 ng/dL 0.76-1.46 [facility] No Panel InformationOrdered By: Moises Mazariegos on 05-25-2023 Thyroid Stimulating Hormone (TSH) 1.36 uIU/mL 0.358-3.74 [facility] Basophil percentageOrdered B y: Justina Guido on 10-24-2022 Chloride [Moles/Vol] 108 mmol/L 98-107 [facility] Cholesterol [Mass/Vol] 152 mg/dL <200 [facility] Comment on above: <200 mg/dL Desirable 200-240 mg/dL Borderline >240 mg/dL High Risk Glucose [Mass/Vol] 95 mg/dL 74-106 [facility] Potassium [Moles/Vol] 3.7 mmol/L 3.5-5.1 [facility] Sodium [Moles/Vol] 139 mmol/L 136-145 [facility] Triglyceride [Mass/Vol] 37 mg/dL <199 [facility] Comment on above: The drugs N-Acetylcy steine and Metamizole may falsely depress this assay.Serum Triglycerides Reference Interval Normal <150 mg/dL Borderline high 150 - 199 mg/dL High 200 - 499 mg/dL Very High > or = 500 mg/dL Laboratory - Chemistry and C hemistry - challengeOrdered By: Justina Guido on 10-24-2022 CO2 [Moles/Vol] 28.0 mmol/L 21.0-32.0 [facility] Free T4 [Mass/Vol] 1.06 ng/dL 0.76-1.46 [facility] Urea nitrogen/Creatinine [Mass ratio] 15.5 mg/mg 10-20 [facility] No Panel InformationOrdered By: Justina Guido on 10-24-2022 Estimated GFR (MDRD) Amer 139 mL/min >60 [facility] Comment on above: GFR Calc Estimated GFR (MDRD) Non-Af Amer 115 mL/min >60 [facility] Comment on above: Non- GFR Calc Thyroid Stimulating Hormone (TSH) 0.08 uIU/mL 0.358-3.74 [facility] Serum or plasma calcium ramiro urement (mass/volume)Ordered By: Justina Guido on 10-24-2022 Calcium [Mass/Vol] 8.7 mg/dL 8.5-10.1 [facility] Serum or plasma cholesterol in HDL measurement (mass/volume)Ordered By: Justina Guido on 10-24-2022 Cholesterol in HDL [Mass/Vol] 44 mg/dL >40 [facility] Comment on above: The drugs N-Acetylcy steine and Metamizole may falsely depress this assay. Reference Range HDL <40 mg/dL Low HDL Cholesterol HDL >or= 60 mg/dL High HDL Cholesterol Serum or plasma cholesterol in VLDL measurement (mass/volume)Ordered By: Justina Guido on 10-24-2022 Cholesterol in VLDL [Mass/Vol] 7 mg/dL 5-40 [facility] Serum or plasma creatinine m easurement (mass/volume)Ordered By: Justina Guido on 10-24-2022 Creatinine [Mass/Vol] 0.64 mg/dL 0.55-1.02 [facility] Comment on above: The validity of the calculated GFR & GFRAA in patients over 70 years has not been determined. Clinical correlation is essential. Serum or plasma low density lipoprotein (LDL) cholesterol measurement (mass/volume)Ordered By: Justina Guido on 10-24-2022 Cholesterol in LDL [Mass/Vol] 101 mg/dL 0-130 [facility] Serum or plasma urea nitroge n measurement (mass/volume)Ordered By: Justina Guido on 10-24-2022 Urea nitrogen [Mass/Vol] 10 mg/dL 7-18 [facility] Thin prep Papanicolaou smear with manual screeningOrdered By: Justina Guido on 10-24-2022 Thin prep Papanicolaou smear with manual screening 3 5-15 [facility] Absolute lymphocyte countOrd ered By: Justina Guido on 07-09-2022 Lymphocytes Auto (Unsp spec) [#/Vol] 1.76 10*3/uL 0.83-4.51 [facility] Basophil percentageOrdered B y: Justina Guido on 07-09-2022 Basophils/100 WBC (Bld) 0.4 % 0-1 [facility] Eosinophils/100 WBC (Bld) 1.8 % 0-5 [facility] Neutrophils (Bld) [#/Vol] 8.3 10*3/uL 2.0-7.7 [facility] Neutrophils/100 WBC (Bld) 73.5 % 47-70 [facility] WBC (Bld) [#/Vol] 11.2 10*3/uL 4.4-11.0 [facility] Blood erythrocytes count (nu mber/volume)Ordered By: Justina Guido on 07-09-2022 RBC (Bld) [#/Vol] 3.64 10*6/uL 4.2-5.4 [facility] Blood hemoglobin measurement (mass/volume)Ordered By: Justina Guido on 07-09-2022 Hemoglobin (Bld) [Mass/Vol] 10.4 g/dL 12.0-15.0 [facility] Blood lymphocytes/100 leukoc ytesOrdered By: Justina Guido on 07-09-2022 Lymphocytes/100 WBC (Bld) 15.7 % 19-41 [facility] Blood monocytes/100 leukocyt esOrdered By: Justina Guido on 07-09-2022 Monocytes/100 WBC (Bld) 7.8 % 0-10 [facility] Blood platelet mean volumeOr dered By: Justina Guido on 07-09-2022 Platelet mean volume (Bld) [Entitic vol] 9.2 fL 6.2-12.0 [facility] Determination of erythrocyte mean corpuscular volume (MCV)Ordered By: Justina Guido on 07-09-2022 MCV (RBC) [Entitic vol] 83.2 fL 81-99 [facility] Hematocrit Auto (Bld) [Volum e fraction]Ordered By: Justina Guido on 07-09-2022 Hematocrit (Bld) [Volume fraction] 30.3 % 37-47 [facility] - Hematology and Cell countsOrdered By: Justina Guido on 07-09-2022 Erythrocyte distribution width (RBC) [Entitic vol] 39.6 fL 35.1-43.9 [facility] Erythrocyte distribution width (RBC) [Ratio] 13.2 % 11.6-14.6 [facility] Immature granulocytes/100 WBC (Bld) 0.800 % 0.0-0.9 [facility] Comment on above: IG% - Immature Granu locytes (promyelocytes, myelocytes and metamyelocytes) > 1% indicates that a LEFT SHIFT is Present. MCH (RBC) [Entitic mass] 28.6 pg 27.0-32.0 [facility] Nucleated RBC/100 WBC (Bld) [Ratio] 0 % 0-5 [facility] MCHC Auto (RBC) [Mass/Vol]Or dered By: Justina Guido on 07-09-2022 MCHC (RBC) [Mass/Vol] 34.3 g/dL 32-36 [facility] No Panel InformationOrdered By: Justina Guido on 07-09-2022 Vaginal Amniotic Fluid Detection Positive Negative [facility] Comment on above: Amniotic fluid prese nt indicates rupture of Membranes. RESULTS CALLED TO OZZIE LYOSN 07/09/221926 Stephy Borjas.REPORT READ BACK BY SAME . Platelets bldOrdered By: Katie Guido on 07-09-2022 Platelets (Bld) [#/Vol] 252 10*3/uL 150-450 [facility] - Chemistry and C hemistry - challengeon 07-03-2022 Glucose Ql (U) Negative [facility] Work Phone: Laboratory - Urinalysison Protein Ql (U) Negative [facility] Work Phone: Laboratory - Chemistry and C hemistry - challengeon 06-27-2022 Glucose Ql (U) Negative [facility] Work Phone: Laboratory - Urinalysison Protein Ql (U) Negative [facility] Work Phone: [phone] Laboratory - Chemistry and C hemistry - challengeon 06-16-2022 Glucose Ql (U) Negative [facility] Work Phone: Laboratory - Urinalysison Protein Ql (U) Negative [facility] Work Phone: Laboratory - Chemistry and C hemistry - challengeon 06-02-2022 Glucose Ql (U) Negative [facility] Work Phone: [phone] Laboratory - Urinalysison Protein Ql (U) Negative [facility] Work Phone: Laboratory - Chemistry and C hemistry - challengeon 05-23-2022 Glucose Ql (U) Negative [facility] Work Phone: Laboratory - Urinalysison Protein Ql (U) Negative [facility] Work Phone: Laboratory - Chemistry and C hemistry - challengeon 05-09-2022 Glucose Ql (U) Negative [facility] Work Phone: Laboratory - Urinalysison Protein Ql (U) Negative [facility] Work Phone: Absolute lymphocyte counton 04-21-2022 Lymphocytes Auto (Unsp spec) [#/Vol] 1.35 10*3/uL 0.83-4.51 [facility] Work Phone: Basophil percentageon 2021 Basophils/100 WBC (Bld) 0.4 % 0-1 [facility] Work Phone: Eosinophils/100 WBC (Bld) 3.3 % 0-5 [facility] Work Phone: [phone] Neutrophils (Bld) [#/Vol] 5.8 10*3/uL 2.0-7.7 [facility] Work Phone: Neutrophils/100 WBC (Bld) 71.6 % 47-70 [facility] Work Phone: WBC (Bld) [#/Vol] 8.1 10*3/uL 4.4-11.0 [facility] Work Phone: Blood erythrocytes count (nu mber/volume)on 04-21-2022 RBC (Bld) [#/Vol] 3.67 10*6/uL 4.2-5.4 [facility] Work Phone: Blood hemoglobin measurement (mass/volume)on 04-21-2022 Hemoglobin (Bld) [Mass/Vol] 11.5 g/dL 12.0-15.0 [facility] Work Phone: Blood lymphocytes/100 leukoc yteson 04-21-2022 Lymphocytes/100 WBC (Bld) 16.6 % 19-41 [facility] Work Phone: Blood monocytes/100 leukocyt eson 04-21-2022 Monocytes/100 WBC (Bld) 6.9 % 0-10 [facility] Work Phone: Blood platelet mean volumeon 04-21-2022 Platelet mean volume (Bld) [Entitic vol] 9.0 fL 6.2-12.0 [facility] Work Phone: [phone] Determination of erythrocyte mean corpuscular volume (MCV)on 04-21-2022 MCV (RBC) [Entitic vol] 90.7 fL 81-99 [facility] Work Phone: [phone] Gestational diabetes screen 1-hour screen with 50g oral glucose loadon 04-21-2022 Glucose 1 Hr post 50 g glucose PO [Mass/Vol] 120 mg/dL 70-140 [facility] Work Phone: Hematocrit Auto (Bld) [Volum e fraction]on 04-21-2022 Hematocrit (Bld) [Volume fraction] 33.3 % 37-47 [facility] Work Phone: Laboratory - Chemistry and C hemistry - challengeon 04-21-2022 Glucose Ql (U) Negative [facility] Work Phone: [phone] Laboratory - Hematology and Cell countson 04-21-2022 Erythrocyte distribution width (RBC) [Entitic vol] 38.8 fL 35.1-43.9 [facility] Work Phone: [phone] Erythrocyte distribution width (RBC) [Ratio] 11.8 % 11.6-14.6 [facility] Work Phone: [phone] Immature granulocytes/100 WBC (Bld) 1.200 % 0.0-0.9 [facility] Work Phone: Comment on above: IG% - Immature Granu locytes (promyelocytes, myelocytes and metamyelocytes) > 1% indicates that a LEFT SHIFT is Present. MCH (RBC) [Entitic mass] 31.3 pg 27.0-32.0 [facility] Work Phone: Nucleated RBC/100 WBC (Bld) [Ratio] 0 % 0-5 [facility] Work Phone: Laboratory - Urinalysison Protein Ql (U) Negative [facility] Work Phone: [phone] MCHC Auto (RBC) [Mass/Vol]on 04-21-2022 MCHC (RBC) [Mass/Vol] 34.5 g/dL 32-36 [facility] Work Phone: [phone] No Panel Informationon 04-21 Thyroid Stimulating Hormone (TSH) 1.43 uIU/mL 0.358-3.74 [facility] Work Phone: [phone] Platelets bldon 04-21-2022 Platelets (Bld) [#/Vol] 257 10*3/uL 150-450 [facility] Work Phone: Laboratory - Chemistry and C hemistry - challengeon 03-25-2022 Glucose Ql (U) Negative [facility] Work Phone: [phone] Laboratory - Urinalysison Protein Ql (U) Negative [facility] Work Phone: [phone] Laboratory - Chemistry and C hemistry - challengeon 02-24-2022 Glucose Ql (U) Negative [facility] Work Phone: [phone] Laboratory - Urinalysison Protein Ql (U) Negative [facility] Work Phone: [phone] Laboratory - Chemistry and C hemistry - challengeon 01-28-2022 Glucose Ql (U) Negative [facility] Work Phone: [phone] Laboratory - Urinalysison Protein Ql (U) Negative [facility] Work Phone: [phone] Laboratory - Chemistry and C hemistry - challengeon 01-08-2022 Glucose Ql (U) Negative [facility] Work Phone: [phone] Laboratory - Urinalysison Protein Ql (U) Negative [facility] Work Phone: [phone] Laboratory - Chemistry and C hemistry - challengeon 01-01-2022 Glucose Ql (U) Negative [facility] Work Phone: [phone] Laboratory - Urinalysison Protein Ql (U) Negative [facility] Work Phone: [phone] Absolute lymphocyte counton 12-05-2021 Lymphocytes Auto (Unsp spec) [#/Vol] 1.68 10*3/uL 0.83-4.51 [facility] Work Phone: Basophil percentageon 2021 Basophils/100 WBC (Bld) 0.5 % 0-1 [facility] Work Phone: Eosinophils/100 WBC (Bld) 1.0 % 0-5 [facility] Work Phone: Neutrophils (Bld) [#/Vol] 5.9 10*3/uL 2.0-7.7 [facility] Work Phone: Neutrophils/100 WBC (Bld) 70.5 % 47-70 [facility] Work Phone: WBC (Bld) [#/Vol] 8.4 10*3/uL 4.4-11.0 [facility] Work Phone: Blood erythrocytes count (nu mber/volume)on 12-05-2021 RBC (Bld) [#/Vol] 4.24 10*6/uL 4.2-5.4 [facility] Work Phone: Blood hemoglobin measurement (mass/volume)on 12-05-2021 Hemoglobin (Bld) [Mass/Vol] 12.5 g/dL 12.0-15.0 [facility] Work Phone: Blood lymphocytes/100 leukoc yteson 12-05-2021 Lymphocytes/100 WBC (Bld) 20.0 % 19-41 [facility] Work Phone: Blood monocytes/100 leukocyt eson 12-05-2021 Monocytes/100 WBC (Bld) 7.5 % 0-10 [facility] Work Phone: Blood platelet mean volumeon 12-05-2021 Platelet mean volume (Bld) [Entitic vol] 9.3 fL 6.2-12.0 [facility] Work Phone: [phone] Chlamydia trachomatis rRNA d etection by probe and target amplification methodon 12-05-2021 C. trachomatis rRNA RORY+probe Ql (Unsp spec) Negative Negative [facility] Work Phone: Culture, urineon 12-05-2021 Bacteria identified Cx Nom (U) Streptococcus agalactiae (B) [facility] Work Phone: [phone] Determination of erythrocyte mean corpuscular volume (MCV)on 12-05-2021 MCV (RBC) [Entitic vol] 86.1 fL 81-99 [facility] Work Phone: [phone] HIV 1 and HIV-2 antibody ass ay with HIV-1 p24 antigen detectionon 12-05-2021 HIV 1+2 Ab+HIV1 p24 Ag IA Ql Non-Reactive Nonreactive [facility] Work Phone: Hematocrit Auto (Bld) [Volum e fraction]on 12-05-2021 Hematocrit (Bld) [Volume fraction] 36.5 % 37-47 [facility] Work Phone: Laboratory - Chemistry and C hemistry - challengeon 12-05-2021 Free T4 [Mass/Vol] 1.11 ng/dL 0.76-1.46 [facility] Work Phone: Laboratory - Drug toxicology on 12-05-2021 Amphetamines Ql (U) Negative <[facility]: Benzod[facility]ines Ql (U) Negative < 200 ng/mL [facility] Work Phone: Cannabinoids Screen Ql (U) Negative < 50 ng/mL [facility] Work Phone: Cocaine Ql (U) Negative < 300 ng/mL [facility] Work Phone: Opiates Ql (U) Negative < 300 ng/mL [facility] Work Phone: Laboratory - Hematology and Cell countson 12-05-2021 Erythrocyte distribution width (RBC) [Entitic vol] 37.7 fL 35.1-43.9 [facility] Work Phone: Erythrocyte distribution width (RBC) [Ratio] 11.9 % 11.6-14.6 [facility] Work Phone: Immature granulocytes/100 WBC (Bld) 0.500 % 0.0-0.9 [facility] Work Phone: Comment on above: IG% - Immature Granu locytes (promyelocytes, myelocytes and metamyelocytes) > 1% indicates that a LEFT SHIFT is Present. MCH (RBC) [Entitic mass] 29.5 pg 27.0-32.0 [facility] Work Phone: Nucleated RBC/100 WBC (Bld) [Ratio] 0 % 0-5 [facility] Work Phone: Laboratory - Microbiology an d Antimicrobial susceptibilityon 12-05-2021 N. gonorrhoeae DNA RORY+probe Ql (Unsp spec) Negative Negative [facility] Work Phone: Comment on above: Performed at: =[address] [place] [id number] Director: Isis Aranda MD, Phone: [phone] MCHC Auto (RBC) [Mass/Vol]on 12-05-2021 MCHC (RBC) [Mass/Vol] 34.2 g/dL 32-36 [facility] Work Phone: No Panel Informationon 12-05 MDMA (Ecstasy) Screen Negative < 500 ng/mL [facility] Work Phone: Urine Barbiturates Screen Negative < 200 ng/mL [facility] Work Phone: Urine Drug Screen Comment [facility] Work Phone: Comment on above: CONFIRMATORY TESTING [...] Methadone Screen Negative < 300 ng/mL [facility] Work Phone: Hepatitis B Surface Antigen Non-Reactive Nonreactive [facility] Work Phone: Hepatitis C Antibody Non-Reactive Nonreactive [facility] Work Phone: Comment on above: Non Reactive: < 0.8 Equivocal: >/= 0.8 to < 1.0 Reactive: >/= 1.0The CDC recommends that a reactive/equivocal HCV antibody result be followed up by the HCV Nucleic Acid Amplificationtest (665966) Rubella IgG Antibody Reactive Nonreactive [facility] Work Phone: Comment on above: Antibody Results Int erpretation of Immune Status Non Reactive Presumed Non-Immune Equivocal Equivocal Reactive Presumed Immune Thyroid Stimulating Hormone (TSH) 1.46 uIU/mL 0.358-3.74 [facility] Work Phone: Platelets bldon 12-05-2021 Platelets (Bld) [#/Vol] 288 10*3/uL 150-450 [facility] Work Phone: Serum Treponema species anti body detectionon 12-05-2021 Treponema sp Ab Ql (S) Non-Reactive [facility] Work Phone: Urine phencyclidine (PCP) de tectionon 12-05-2021 Phencyclidine Ql (U) Negative < 25 ng/mL [facility] Work Phone: Serum or plasma choriogonado tropin detectionon 11-19-2021 HCG ( [place]) [place]l [address] mIU/mL <4 [facility] Work Phone: Comment on above: hCG levels with Gest ational AgeGestational Age hCG mIU/mL (IU/L)0.2 - 1 week 5 - 501-2 weeks 50 - 5002-3 weeks 100 - 01612-8 weeks 500 - 897158-6 weeks 1000 - 755666-8 weeks 38990 - 100,0006-8 weeks 67593 - 200,0002-3 months 46703 - 100,000 Laboratory - Chemistry and C hemistry - challengeon 10-07-2021 Free T4 [Mass/Vol] 0.89 ng/dL 0.76-1.46 [facility] Work Phone: No Panel Informationon 10-07 Thyroid Stimulating Hormone (TSH) 2.36 uIU/mL 0.358-3.74 [facility] Work Phone: No Panel Informationon 08-09 Free Triiodothyronine (T3) pg/dL 3.1 pg/mL 2.18-3.98 [facility] Work Phone: Thyroid Stimulating Hormone (TSH) 3.86 uIU/mL 0.358-3.74 [facility] Work Phone: Homocysteine-Serumon 018 Homocysteine-Serum 7.2 umol/L Normal <10.4 [facility] Comment on above: Result Comment: Homo cysteine is increased by functional deficiency offolate or vitamin B12. Testing for methylmalonic aciddifferentiates between these deficiencies. Other causesof increased homocysteine include renal failure, folateantagonists such as methotrexate and phenytoin, andexposure to nitrous oxide.Test Performed by [facility],[address] [place] [id number] Villela M.D., Ph.D., Director of [phone], [facility] [id number] Performed By: #### H OMOCYSTEINEQ ####[address] [place] [address] Homocysteine-Serumon 018 Age at Specimen Collection = Normal [facility] Comment on above: Performed By: #### H OMOCYSTEINEQ ####[address] [place] [address] CBC With Auto Diff.on 2016 Basophils Auto #/vol (Bld) 0.02 10*3/uL Normal 0.00-0.15 [facility] Comment on above: Order Comment: Regul atory Requirements State: Only Absolute Cell Counts are reported with their reference ranges. Performed By: #### C BC ####[facility] (DEFAULT)[address] [place], [place] [address] Basophils/100 WBC Auto (Bld) 0.3 % Normal [facility] Comment on above: Order Comment: Regul atory Requirements State: Only Absolute Cell Counts are reported with their reference ranges. Performed By: #### C BC ####[facility] (DEFAULT)[address] [place], [place] [address] Eosinophils 0.01 10*3/uL Normal 0.00-0.70 [facility] Comment on above: Order Comment: Regul atory Requirements State: Only Absolute Cell Counts are reported with their reference ranges. Performed By: #### C BC ####[facility] (DEFAULT)[address] [place], [place] [address] Eosinophils/100 leukocytes 0.2 % Normal [facility] Comment on above: Order Comment: Regul atory Requirements State: Only Absolute Cell Counts are reported with their reference ranges. Performed By: #### C BC ####[facility] (DEFAULT)[address] [place], [place] [address] Erythrocyte distribution width Auto Ratio (RBC) 11.5 % Normal 11.0-16.0 [facility] Comment on above: Order Comment: Regul atory Requirements State: Only Absolute Cell Counts are reported with their reference ranges. Performed By: #### C BC ####[facility] (DEFAULT)[address] [place] [address] Erythrocytes (RBC) 4.32 10*6/uL Normal 2.50-5.50 [facility] Comment on above: Order Comment: Regul atory Requirements State: Only Absolute Cell Counts are reported with their reference ranges. Performed By: #### C BC ####[facility] (DEFAULT)[address] [place] [address] Hematocrit (HCT) 37.2 % Low 38.0-46.0 [facility] Comment on above: Order Comment: Regul atory Requirements State: Only Absolute Cell Counts are reported with their reference ranges. Performed By: #### C BC ####[facility] (DEFAULT)[address] [place] [address] Hemoglobin mass conc (Bld) 13.3 g/dL Normal 12.0-15.0 [facility] Comment on above: Order Comment: Regul atory Requirements State: Only Absolute Cell Counts are reported with their reference ranges. Performed By: #### C BC ####[facility] (DEFAULT)[address] [place] [address] Ig% 0.3 % Normal 0.0-4.0 [facility] Comment on above: Order Comment: Regul atory Requirements State: Only Absolute Cell Counts are reported with their reference ranges. Performed By: #### C BC ####[facility] (DEFAULT)[address] [place], [place] [address] Lymphocytes 1.78 10*3/uL Normal 1.10-4.40 [facility] Comment on above: Order Comment: Regul atory Requirements State: Only Absolute Cell Counts are reported with their reference ranges. Performed By: #### C BC ####[facility] (DEFAULT)[address] [place], [place] [address] Lymphocytes variants/100 leukocytes 26.8 % Normal [facility] Comment on above: Order Comment: Regul atory Requirements State: Only Absolute Cell Counts are reported with their reference ranges. Performed By: #### C BC ####[facility] (DEFAULT)[address] [place] [address] MCH 30.8 pg Normal 26.0-38.0 [facility] Comment on above: Order Comment: Regul atory Requirements State: Only Absolute Cell Counts are reported with their reference ranges. Performed By: #### C BC ####[facility] (DEFAULT)[address] [place] [address] MCHC mass conc (RBC) 35.8 g/dL Normal 31.0-37.0 [facility] Comment on above: Order Comment: Regul atory Requirements State: Only Absolute Cell Counts are reported with their reference ranges. Performed By: #### C BC ####[facility] (DEFAULT)[address] [place] [address] MCV 86 fL Normal 78-94 [facility] Comment on above: Order Comment: Regul atory Requirements State: Only Absolute Cell Counts are reported with their reference ranges. Performed By: #### C BC ####[facility] (DEFAULT)[address] [place] [address] Monocytes 0.57 10*3/uL Normal 0.20-0.95 [facility] Comment on above: Order Comment: Regul atory Requirements State: Only Absolute Cell Counts are reported with their reference ranges. Performed By: #### C BC ####[facility] (DEFAULT)[address] [place] [address] Monocytes/100 leukocytes 8.6 % Normal [facility] Comment on above: Order Comment: Regul atory Requirements State: Only Absolute Cell Counts are reported with their reference ranges. Performed By: #### C BC ####[facility] (DEFAULT)[address] [place], [place] [address] Neutrophils 4.25 10*3/uL Normal 1.50-7.50 [facility] Comment on above: Order Comment: Regul atory Requirements State: Only Absolute Cell Counts are reported with their reference ranges. Performed By: #### C BC ####[facility] (DEFAULT)[address] [place] [address] Neutrophils/100 WBC Auto (Bld) 63.8 % Normal [facility] Comment on above: Order Comment: Regul atory Requirements State: Only Absolute Cell Counts are reported with their reference ranges. Performed By: #### C BC ####[facility] (DEFAULT)[address] [place] [address] Platelet mean volume (PMV) 9.3 fL Normal 9.0-13.0 [facility] Comment on above: Order Comment: Regul atory Requirements State: Only Absolute Cell Counts are reported with their reference ranges. Performed By: #### C BC ####[facility] (DEFAULT)[address] [place] [address] Platelets 283 U/uL Normal 150-450 [facility] Comment on above: Order Comment: Regul atory Requirements State: Only Absolute Cell Counts are reported with their reference ranges. Performed By: #### C BC ####[facility] (DEFAULT)[address] [place] [address] WBC (Leukocytes) 6.65 10*3/uL Normal 4.80-11.80 [facility] Comment on above: Order Comment: Regul atory Requirements State: Only Absolute Cell Counts are reported with their reference ranges. Performed By: #### C BC ####[facility] (DEFAULT)[address] [place] [address] Homocyst(e)ine, Plasmaon Homocyst(e)ine, Plasma HOMOCYSTEINE: 5.8 Units: umol/L Ref Range: 5.0-15.0 Testing Performed At: [facility] [address] [place] [address] [facility] Comment on above: Performed By: #### H CYST ####[facility] (DEFAULT)[address] [place] [address] Protein C Agon 01-23-2017 Protein C Ag PROTEIN C ANTIGEN: 9 8 Units: % Ref Range: 60-125Testing Performed At: [facility] [address] [place] [address]Xodlfo, full-term infants or healthy premature infants may have decreased levels of Protein-C Antigen (15-50%), which may not reach adult levels until later inchildhood or early adolescence. [facility] Comment on above: Performed By: #### P ROTCAG ####[facility] (DEFAULT)[address] [place] [address] Culture, urine Bacteria identified Cx Nom (U) Streptococcus agalactiae (B) [facility] Work Phone: Gram stain for investigation of transfusion reaction Microscopic observation Gram stain Nom (Unsp spec) [facility] Work Phone: Thin prep Papanicolaou smear with manual screening Genital Culture Streptococcus agalac tiae (B) [facility] Work Phone: Genital Culture Mixed Joanne [facility] Work Phone: Vital Signs Date Time Vital Sign Value Performing Clinician Facility 01-12-2025 08:29-0400 Body height 160.02 cm [employer] Work Phone: [facility] 01-12-2025 08:29-0400 Body mass index (BMI) [Ratio] 28 kg/m2 [employer] Work Phone: [facility] 01-12-2025 08:29-040 Body weight 71.66 kg [employer] DO Work Phone: [facility] 01-12-2025 08:29-0400 Diastolic blood pressure 67 mm[Hg] [employer] DO Work Phone: 1(459)959-013189 [place] [address] 01-12-2025 08:29-0400 Systolic blood pressure 108 mm[Hg] Farzaneh Kt DO Work Phone: 6(229)404-038589 [place] [address] 01-05-2025 11:37-0400 Body height 160.02 cm Farzaneh Kt DO Work Phone: 5(540)217-692189 [place] [address] 01-05-2025 11:37-0400 Body mass index (BMI) [Ratio] 28.2 kg/m2 Farzaneh Kt DO Work Phone: 7(321)898-265289 [place] [address] 01-05-2025 11:37-0400 Body weight 72.29 kg Farzaneh Kt DO Work Phone: 4(170)052-418889 [place] [address] 01-05-2025 11:37-0400 Diastolic blood pressure 86 mm[Hg] Farzaneh Kt DO Work Phone: 0(061)379-649789 [place] [address] 01-05-2025 11:37-0400 Systolic blood pressure 132 mm[Hg] Farzaneh Kt DO Work Phone: 8(594)322-955289 [place] [address] 12-29-2024 15:36-0400 Body height 160.02 cm Farzaneh Kt DO Work Phone: 2(932)200-031489 [place] [address] 12-29-2024 15:32-0400 Body mass index (BMI) [Ratio] 27.8 kg/m2 Farzaneh Kt DO Work Phone: 4(898)125-297789 [place] [address] 12-29-2024 15:32-0400 Body weight 71.44 kg Farzaneh Kt DO Work Phone: 8(330)118-804589 [place] [address] 12-29-2024 15:32-0400 Diastolic blood pressure 69 mm[Hg] Farzaneh Tk DO Work Phone: 0(335)096-732289 [place] [address] 12-29-2024 15:32-0400 Systolic blood pressure 121 mm[Hg] Farzaneh Kt DO Work Phone: 8(676)828-611289 [place] [address] 12-19-2024 14:13-0400 Body height 160.02 cm Farzaneh Kt DO Work Phone: 3(592)944-016347 [place] [address] 12-19-2024 14:110400 Body mass index (BMI) [Ratio] 27.5 kg/m2 Farzaneh Kt DO Work Phone: 9(023)633-939989 [place] [address] 12-19-2024 14:110400 Body weight 70.47 kg Farzaneh Kt DO Work Phone: 3(871)190-455389 [place] [address] 12-19-2024 14:110400 Diastolic blood pressure 71 mm[Hg] Farzaneh Kt DO Work Phone: 1(021)612-628089 [place] [address] 12-19-2024 14:110400 Systolic blood pressure 114 mm[Hg] Farzaneh Kt DO Work Phone: 2(017)987-735189 [place] [address] 12-09-2024 10:07-0400 Body height 160.02 cm Farzaneh Kt DO Work Phone: 4(184)956-311689 [place] [address] 12-09-2024 10:07-0400 Body mass index (BMI) [Ratio] 26.9 kg/m2 Farzaneh Kt DO Work Phone: 3(048)995-196089 [place] [address] 12-09-2024 10:07-0400 Body weight 68.94 kg Farzaneh Kt DO Work Phone: 6(433)301-840589 [place] [address] 12-09-2024 10:07-0400 Diastolic blood pressure 70 mm[Hg] Farzaneh Kt DO Work Phone: 9(684)671-889889 [place] [address] 12-09-2024 10:07-0400 Systolic blood pressure 113 mm[Hg] Farzaneh Kt DO Work Phone: 1(817)025-670789 [place] [address] 11-25-2024 10:04-0400 Body height 160.02 cm Farzaneh Kt DO Work Phone: 1(878)319-085389 [place] [address] 11-25-2024 10:04-0400 Body mass index (BMI) [Ratio] 25.9 kg/m2 Farzaneh Kt DO Work Phone: 1(642)448-481589 [place] [address] 11-25-2024 10:04-0400 Body weight 66.39 kg Farzaneh Kt DO Work Phone: [facility] 11-25-2024 10:04-0400 Diastolic blood pressure 69 mm[Hg] Farzaneh Kt DO Work Phone: 1(106)880-628389 [place] [address] 11-25-2024 10:04-0400 Systolic blood pressure 111 mm[Hg] Farzaneh Kt DO Work Phone: 4(066)490-574289 [place] [address] 11-16-2024 09:11-0400 Body mass index (BMI) [Ratio] 26.2 kg/m2 Farzaneh Kt DO Work Phone: 9(133)567-091789 [place] [address] 11-16-2024 09:11-0400 Body weight 67.18 kg Farzaneh Kt DO Work Phone: 0(957)734-040889 [place] [address] 11-16-2024 09:11-0400 Diastolic blood pressure 72 mm[Hg] Farzaneh Kt DO Work Phone: 3(115)011-552989 [place] [address] 11-16-2024 09:11-0400 Systolic blood pressure 117 mm[Hg] Farzaneh Kt DO Work Phone: 3(591)094-143589 [place] [address] 11-04-2024 15:31-0400 Body mass index (BMI) [Ratio] 26.5 kg/m2 Farzaneh Kt DO Work Phone: 4(438)644-444889 [place] [address] 11-04-2024 15:31-0400 Body weight 68.03 kg Farzaneh Kt DO Work Phone: 1(060)476-973689 [place] [address] 11-04-2024 15:31-0400 Diastolic blood pressure 70 mm[Hg] Farzaneh Kt DO Work Phone: 4(484)241-515389 [place] [address] 11-04-2024 15:31-0400 Heart rate 83 /min Farzaneh Kt DO Work Phone: 1(431)598-230489 [place] [address] 11-04-2024 15:31-0400 SaO2% (BldA) [Mass fraction] 97 % Farzaneh Kt DO Work Phone: 1(965)359-561189 [place] [address] 11-04-2024 15:31-0400 Systolic blood pressure 107 mm[Hg] Farzaneh Kt DO Work Phone: 9(548)612-520547 [place] [address] 10-26-2024 10:28-0400 Body height 160.02 cm Farzaneh Kt DO Work Phone: 6(125)687-897389 [place] [address] 10-26-2024 10:28-0400 Body mass index (BMI) [Ratio] 26.2 kg/m2 Farzaneh Kt DO Work Phone: 5(879)900-472089 [place] [address] 10-26-2024 10:28-0400 Body weight 67.13 kg Farzaneh Kt DO Work Phone: 8(798)535-984589 [place] [address] 10-26-2024 10:28-0400 Diastolic blood pressure 74 mm[Hg] Farzaneh Kt DO Work Phone: 2(818)992-535689 [place] [address] 10-26-2024 10:28-0400 Systolic blood pressure 114 mm[Hg] Farzaneh Kt DO Work Phone: 5(148)967-069689 [place] [address] 10-12-2024 10:56-0400 Body mass index (BMI) [Ratio] 25.5 kg/m2 Farzaneh Kt DO Work Phone: 7(442)049-293689 [place] [address] 10-12-2024 10:56-0400 Body weight 65.48 kg Farzaneh Kt DO Work Phone: 9(139)846-970089 [place] [address] 10-12-2024 10:56-0400 Diastolic blood pressure 77 mm[Hg] Farzaneh Kt DO Work Phone: 2(326)012-593089 [place] [address] 10-12-2024 10:56-0400 Systolic blood pressure 117 mm[Hg] Farzaneh Kt DO Work Phone: 6(763)283-931689 [place] [address] 09-30-2024 10:59-0400 Body mass index (BMI) [Ratio] 24.7 kg/m2 Farzaneh Kt DO Work Phone: 8(165)510-283089 [place] [address] 09-30-2024 10:59-0400 Body weight 63.5 kg Farzaneh Kt DO Work Phone: 8(014)183-286189 [place] [address] 09-30-2024 10:59-0400 Diastolic blood pressure 69 mm[Hg] Farzaneh Kt DO Work Phone: 4(028)951-524389 [place] [address] 09-30-2024 10:59-0400 Systolic blood pressure 108 mm[Hg] Farzaneh Kt DO Work Phone: 3(302)764-741789 [place] [address] 09-16-2024 11:23-0500 Body mass index (BMI) [Ratio] 24.6 kg/m2 Farzaneh Kt DO Work Phone: 9(623)863-064489 [place] [address] 09-16-2024 11:23-0500 Body weight 63.04 kg Farzaneh Kt DO Work Phone: 2(249)090-854489 [place] [address] 09-16-2024 11:23-0500 Diastolic blood pressure 74 mm[Hg] Farzaneh Kt DO Work Phone: 0(942)182-763289 [place] [address] 09-16-2024 11:23-0500 Systolic blood pressure 124 mm[Hg] Farzaneh Kt DO Work Phone: 3(003)843-358489 [place] [address] 08-17-2024 14:58-0500 Body height 160.02 cm Farzaneh Kt DO Work Phone: 2(645)019-199589 [place] [address] 08-17-2024 14:58-0500 Body mass index (BMI) [Ratio] 23.6 kg/m2 Farzaneh Kt DO Work Phone: 0(667)193-250489 [place] [address] 08-17-2024 14:58-0500 Body weight 60.44 kg Farzaneh Kt DO Work Phone: 0(253)753-092889 [place] [address] 08-17-2024 14:58-0500 Diastolic blood pressure 62 mm[Hg] Farzaneh Kt DO Work Phone: 4(910)625-887889 [place] [address] 08-17-2024 14:58-0500 Systolic blood pressure 110 mm[Hg] Farzaneh Kt DO Work Phone: 3(585)786-837689 [place] [address] 08-01-2024 13:32-0500 Body mass index (BMI) [Ratio] 23.2 kg/m2 Farzaneh Kt DO Work Phone: 4(187)288-223089 [place] [address] 08-01-2024 13:32-0500 Body weight 59.42 kg Farzaneh Kt DO Work Phone: 4(293)183-569689 [place] [address] 08-01-2024 13:32-0500 Diastolic blood pressure 80 mm[Hg] Farzaneh Kt DO Work Phone: 1(666)083-705489 [place] [address] 08-01-2024 13:32-0500 Systolic blood pressure 129 mm[Hg] Farzaneh Kt DO Work Phone: 4(381)835-643089 [place] [address] 07-20-2024 15:37-0500 Body mass index (BMI) [Ratio] 22.7 kg/m2 Farzaneh Kt DO Work Phone: 8(474)046-650989 [place] [address] 07-20-2024 15:37-0500 Body weight 58.28 kg Farzaneh Kt DO Work Phone: 9(354)965-431489 [place] [address] 07-20-2024 15:37-0500 Diastolic blood pressure 74 mm[Hg] Farzaneh Kt DO Work Phone: 4(397)009-043089 [place] [address] 07-20-2024 15:37-0500 Systolic blood pressure 112 mm[Hg] Farzaneh Kt DO Work Phone: 9(059)876-619989 [place] [address] 06-29-2024 10:18-0500 Body mass index (BMI) [Ratio] 22.4 kg/m2 Farzaneh Kt DO Work Phone: 6(948)799-046589 [place] [address] 06-29-2024 10:18-0500 Body weight 57.6 kg Farzaneh Kt DO Work Phone: 1(763)658-384389 [place] [address] 06-29-2024 10:18-0500 Diastolic blood pressure 78 mm[Hg] Farzaneh Kt DO Work Phone: 2(051)020-103289 [place] [address] 06-29-2024 10:18-0500 Systolic blood pressure 121 mm[Hg] Farzaneh Kt DO Work Phone: 2(952)394-065589 [place] [address] 06-17-2024 08:47-0500 Body mass index (BMI) [Ratio] 22.7 kg/m2 Farzaneh Kt DO Work Phone: 0(283)453-154189 [place] [address] 06-17-2024 08:47-0500 Body weight 58.17 kg Farzaneh Meraz DO Work Phone: [facility] 06-17-2024 08:47-0500 Diastolic blood pressure 84 mm[Hg] Farzaneh Martinezer DO Work Phone: [facility] 06-17-2024 08:47-0500 Systolic blood pressure 127 mm[Hg] Farzaneh Martinezer DO Work Phone: [facility] 09-24-2023 07:38-0400 Body height 160.[address] Warren Melendez Work Phone: [facility] 09-24-2023 07:35-0400 Body mass index (BMI) [Ratio] 22.8 kg/m2 Dr. Warren Melendez Work Phone: [facility] 09-24-2023 07:35-0400 Body weight 58.[address] Warren Melendez Work Phone: [facility] 09-24-2023 07:35-0400 Diastolic blood pressure 71 mm[Hg] Dr. Warren Melendez Work Phone: [facility] 09-24-2023 07:35-0400 Systolic blood pressure 111 mm[Hg] Dr. Warren Melendez Work Phone: [facility] 09-10-2023 07:52-0500 Body mass index (BMI) [Ratio] 23.7 kg/m2 Dr. Warren Melendez Work Phone: [facility] 09-10-2023 07:52-0500 Body weight 60.[address] Warren Melendez Work Phone: [facility] 09-10-2023 07:52-0500 Diastolic blood pressure 76 mm[Hg] Dr. Warren Melendez Work Phone: [facility] 09-10-2023 07:52-0500 Systolic blood pressure 114 mm[Hg] Dr. Warren Melendez Work Phone: [facility] 10-30-2022 10:29-0400 Body height 160.[address] Warren Melendez Work Phone: [facility] 10-30-2022 10:29-0400 Body mass index (BMI) [Ratio] 24.8 kg/m2 Dr. Warren Melendez Work Phone: [facility] 10-30-2022 10:29-0400 Body temperature 98.1 [degF] Dr. Warren Melendez Work Phone: [facility] 10-30-2022 10:29-0400 Body weight 63.[address] Warren Melendez Work Phone: [facility] 10-30-2022 10:29-0400 Diastolic blood pressure 79 mm[Hg] Dr. Warren Melendez Work Phone: [facility] 10-30-2022 10:29-0400 Heart rate 69 /min Dr. Warren Melendez Work Phone: [facility] 10-30-2022 10:29-0400 Respiratory rate 16 /min Dr. Warren Melendez Work Phone: [facility] 10-30-2022 10:29-0400 SaO2% (BldA) [Mass fraction] 85 % Dr. Warren Melendez Work Phone: [facility] 10-30-2022 10:29-0400 Systolic blood pressure 126 mm[Hg] Dr. Warren Melendez Work Phone: [facility] 08-20-2022 09:30-0500 Body mass index (BMI) [Ratio] 25 kg/m2 Dr. Warren Melendez Work Phone: [facility] 08-20-2022 09:30-0500 Body weight 64.[address] Warren Melendez Work Phone: [facility] 08-20-2022 09:30-0500 Diastolic blood pressure 86 mm[Hg] Dr. Warren Melendez Work Phone: [facility] 08-20-2022 09:30-0500 Systolic blood pressure 122 mm[Hg] Dr. Warren Melendez Work Phone: [facility] 07-11-2022 14:01-0500 Diastolic blood pressure 84 mm[Hg] Dr. Warren Melendez Work Phone: [facility] 07-11-2022 14:01-0500 Heart rate 85 /min Dr. Warren Melendez Work Phone: [facility] 07-11-2022 14:01-0500 SaO2% (BldA) [Mass fraction] 99 % Dr. Warren Melendez Work Phone: [facility] 07-11-2022 14:01-0500 Systolic blood pressure 128 mm[Hg] Dr. Warren Melendez Work Phone: [facility] 07-11-2022 14:00-0500 Body temperature 98.2 [degF] Dr. Warren Melendez Work Phone: [facility] 07-11-2022 14:00-0500 Respiratory rate 15 /min Dr. Warren Melendez Work Phone: [facility] 07-09-2022 18:59-0500 Body height 160.[address] Warren Melendez Work Phone: [facility] Work Phone: 07-09-2022 18:59-0500 Body mass index (BMI) [Ratio] 28.5 kg/m2 Dr. Warren Melendez Work Phone: [facility] 07-09-2022 18:59-0500 Body weight 73.[address] Warren Melendez Work Phone: [facility] 07-03-2022 11:06-0500 Body mass index (BMI) [Ratio] 28.5 kg/m2 Dr. Warren Melendez Work Phone: [facility] Work Phone: 07-03-2022 11:06-0500 Body weight 73.[address] Warren Melendez Work Phone: [facility] Work Phone: 07-03-2022 11:06-0500 Diastolic blood pressure 76 mm[Hg] Dr. Warren Melendez Work Phone: [facility] Work Phone: 07-03-2022 11:06-0500 Systolic blood pressure 118 mm[Hg] Dr. Warren Melendez Work Phone: [facility] Work Phone: 06-27-2022 11:02-0500 Body height 160.[address] Warren Melendez Work Phone: [facility] Work Phone: 06-27-2022 11:01-0500 Body mass index (BMI) [Ratio] 28.5 kg/m2 Dr. Warren Melendez Work Phone: [facility] Work Phone: 06-27-2022 11:01-0500 Body weight 73.[address] Warren Melendez Work Phone: [facility] Work Phone: 06-27-2022 11:01-0500 Diastolic blood pressure 77 mm[Hg] Dr. Warren Melendez Work Phone: [facility] Work Phone: 06-27-2022 11:01-0500 Systolic blood pressure 126 mm[Hg] Dr. Warren Melendez Work Phone: [facility] Work Phone: 06-16-2022 09:13-0500 Body mass index (BMI) [Ratio] 28.3 kg/m2 Dr. Warren Melendez Work Phone: [facility] Work Phone: 06-16-2022 09:13-0500 Body weight 72.[address] Warren Melendez Work Phone: [facility] Work Phone: 06-16-2022 09:13-0500 Diastolic blood pressure 62 mm[Hg] Dr. Warren Melendez Work Phone: [facility] Work Phone: 06-16-2022 09:13-0500 Systolic blood pressure 124 mm[Hg] Dr. Warren Melendez Work Phone: [facility] Work Phone: 06-02-2022 09:04-0500 Body mass index (BMI) [Ratio] 27.6 kg/m2 Dr. Warren Melendez Work Phone: [facility] Work Phone: 06-02-2022 09:04-0500 Body weight 70.[address] Warren Melendez Work Phone: [facility] Work Phone: 06-02-2022 09:04-0500 Diastolic blood pressure 76 mm[Hg] Dr. Warren Melendez Work Phone: [facility] Work Phone: 06-02-2022 09:04-0500 Systolic blood pressure 132 mm[Hg] Dr. Warren Melendez Work Phone: [facility] Work Phone: 05-23-2022 09:27-0500 Body height 160.[address] Warren Melendez Work Phone: [facility] Work Phone: 05-23-2022 09:26-0500 Body mass index (BMI) [Ratio] 27.6 kg/m2 Dr. Warren Melendez Work Phone: [facility] Work Phone: 05-23-2022 09:26-0500 Body weight 70.[address] Warren Melendez Work Phone: [facility] Work Phone: 05-23-2022 09:26-0500 Diastolic blood pressure 69 mm[Hg] Dr. Warren Melendez Work Phone: [facility] Work Phone: 05-23-2022 09:26-0500 Systolic blood pressure 120 mm[Hg] Dr. Warren Melendez Work Phone: [facility] Work Phone: 05-09-2022 11:42-0400 Body mass index (BMI) [Ratio] 26.9 kg/m2 Dr. Warren Melendez Work Phone: [facility] Work Phone: 05-09-2022 11:42-0400 Body weight 68.[address] Warren Melendez Work Phone: [facility] Work Phone: 05-09-2022 11:42-0400 Diastolic blood pressure 60 mm[Hg] Dr. Warren Melendez Work Phone: [facility] Work Phone: 05-09-2022 11:42-0400 Systolic blood pressure 118 mm[Hg] Dr. Warren Melendez Work Phone: [facility] Work Phone: 04-21-2022 10:45-0400 Body height 160.[address] Warren Melendez Work Phone: [facility] Work Phone: 04-21-2022 10:45-0400 Body mass index (BMI) [Ratio] 26.1 kg/m2 Dr. Warren Melendez Work Phone: [facility] Work Phone: 04-21-2022 10:45-0400 Body weight 66.[address] Warren Melendez Work Phone: [facility] Work Phone: 04-21-2022 10:45-0400 Diastolic blood pressure 78 mm[Hg] Dr. Warren Melendez Work Phone: [facility] Work Phone: 04-21-2022 10:45-0400 Systolic blood pressure 124 mm[Hg] Dr. Warren Melendez Work Phone: [facility] Work Phone: 03-25-2022 15:42-0400 Body mass index (BMI) [Ratio] 25 kg/m2 Dr. Warren Melendez Work Phone: [facility] Work Phone: 03-25-2022 15:42-0400 Body weight 63.[address] Warren Melendez Work Phone: [facility] Work Phone: 03-25-2022 15:42-0400 Diastolic blood pressure 69 mm[Hg] Dr. Warren Melendez Work Phone: [facility] Work Phone: 03-25-2022 15:42-0400 Systolic blood pressure 111 mm[Hg] Dr. Warren Melendez Work Phone: [facility] Work Phone: 02-24-2022 10:51-0400 Body mass index (BMI) [Ratio] 23.3 kg/m2 Dr. Warren Melendez Work Phone: [facility] Work Phone: 02-24-2022 10:51-0400 Body weight 59.[address] Warren Melendez Work Phone: [facility] Work Phone: 02-24-2022 10:51-0400 Diastolic blood pressure 69 mm[Hg] Dr. Warren Melendez Work Phone: [facility] Work Phone: 02-24-2022 10:51-0400 Systolic blood pressure 110 mm[Hg] Dr. Warren Melendez Work Phone: [facility] Work Phone: 01-28-2022 09:31-0400 Body mass index (BMI) [Ratio] 22 kg/m2 Dr. Warren Melendez Work Phone: [facility] Work Phone: 01-28-2022 09:31-0400 Body weight 56.[address] Warren Melendez Work Phone: [facility] Work Phone: 01-28-2022 09:31-0400 Diastolic blood pressure 60 mm[Hg] Dr. Warren Melendez Work Phone: [facility] Work Phone: 01-28-2022 09:31-0400 Systolic blood pressure 118 mm[Hg] Dr. Warren Melendez Work Phone: [facility] Work Phone: 01-08-2022 09:38-0400 Body height 160.[address] Warren Melendez Work Phone: [facility] Work Phone: 01-08-2022 08:09-0400 Body mass index (BMI) [Ratio] 21.4 kg/m2 Dr. Warren Melendez Work Phone: [facility] Work Phone: 01-08-2022 08:09-0400 Body weight 54.[address] Warren Melendez Work Phone: [facility] Work Phone: 01-08-2022 08:09-0400 Diastolic blood pressure 60 mm[Hg] Dr. Warren Melendez Work Phone: [facility] Work Phone: 01-08-2022 08:09-0400 Systolic blood pressure 110 mm[Hg] Dr. Warren Melendez Work Phone: [facility] Work Phone: 01-01-2022 10:34-0400 Body mass index (BMI) [Ratio] 21.2 kg/m2 Dr. Warren Melendez Work Phone: [facility] Work Phone: 01-01-2022 10:34-0400 Body weight 54.[address] Warren Melendez Work Phone: [facility] Work Phone: 01-01-2022 10:34-0400 Diastolic blood pressure 82 mm[Hg] Dr. Warren Melendez Work Phone: [facility] Work Phone: 01-01-2022 10:34-0400 Systolic blood pressure 120 mm[Hg] Dr. Warren Melendez Work Phone: [facility] Work Phone: 12-05-2021 14:30-0400 Diastolic blood pressure 68 mm[Hg] Dr. Warren Melendez Work Phone: [facility] Work Phone: 12-05-2021 14:30-0400 Systolic blood pressure 112 mm[Hg] Dr. Warren Melendez Work Phone: [facility] Work Phone: 12-05-2021 14:30-0400 Diastolic blood pressure 68 mm[Hg] Dr. Warren Melendez Work Phone: [facility] Work Phone: 12-05-2021 14:30-0400 Systolic blood pressure 112 mm[Hg] Dr. Warren Melendez Work Phone: [facility] Work Phone: 12-05-2021 14:01-0400 Body mass index (BMI) [Ratio] 21.4 kg/m2 Dr. Warren Melendez Work Phone: [facility] Work Phone: 12-05-2021 14:01-0400 Body weight 54.[address] Warren Melendez Work Phone: [facility] Work Phone: 12-05-2021 14:01-0400 Body height 160.[address] Warren Melendez Work Phone: [facility] Work Phone: 12-05-2021 14:01-0400 Body mass index (BMI) [Ratio] 21.4 kg/m2 Dr. Warren Melendez Work Phone: [facility] Work Phone: 12-05-2021 14:01-0400 Body weight 54.[address] Warren Melendez Work Phone: [facility] Work Phone: 04-23-2017 13:41-0400 BP Diastolic 78 mm[Hg] Padma Lopez [facility] Work Phone: 04-23-2017 13:41-0400 BP Systolic 128 mm[Hg] Padma Lopez [facility] Work Phone: 04-23-2017 13:41-0400 Pulse (Heart Rate) 94 /min Padma Lopez [facility] Work Phone: 04-23-2017 13:41-0400 Weight 51.71 kg Padma Lopez [facility] Work Phone: Encounters Encounter Date Encounter Type Care Provider Facility Start: 01-19-2025 ambulatory Farzaneh Kt VSC Faci lity:[facility] Start: 01-12-2025 End: 01-12-[address] Pam Koo MD -[facility] Work Phone: Start: 01-12-2025 End: 01-12-2025 ambulatory Farzaneh Kt DO Work Phone: -[facility] Start: 01-05-2025 End: 01-05-[address] Pam Koo MD -[facility] Work Phone: Start: 01-05-2025 End: 01-05-2025 ambulatory Farzaneh Kt DO Work Phone: [facility] Work Phone: Start: 12-29-2024 End: 12-29-2024 ambulatory Farzaneh Kt DO Work Phone: [facility] Work Phone: Start: 12-29-2024 End: 12-29-2024 Patient encounter procedure Reshma Driscoll CNM -Laboratory Specimen Work Phone: Start: 12-29-2024 End: 12-29-2024 Patient encounter procedure Reshma Driscoll CNM -[facility] Work Phone: Start: 12-29-2024 End: 12-29-2024 ambulatory Farzaneh Kt DO Work Phone: [facility] Work Phone: Start: 12-29-2024 End: 12-29-2024 ambulatory Farzaneh Kt VSC Facility:[facility] Start: 12-23-2024 End: 12-23-2024 ambulatory Farzaneh Kt DO Work Phone: [facility] Work Phone: Start: 12-23-2024 End: 12-23-2024 Patient encounter procedure Justina Guido CNM -[facility] Work Phone: Start: 12-23-2024 End: 12-23-2024 ambulatory Farzaneh Kt VSC Facility:[facility] Start: 12-19-2024 End: 12-19-[address] Keshia Galvez DO -[facility] Work Phone: Start: 12-19-2024 End: 12-19-2024 ambulatory Farzaneh Kt DO Work Phone: [facility] Work Phone: Start: 12-19-2024 End: 12-19-2024 ambulatory Farzaneh Kt VSC Facility:[facility] Start: 12-09-2024 End: 12-09-2024 Patient encounter procedure Justina Guido CNM -[facility] Work Phone: Start: 12-09-2024 End: 12-09-2024 ambulatory Farzaneh Kt DO Work Phone: [facility] Work Phone: Start: 11-25-2024 End: 11-25-[address] Pam Koo MD -[facility] Work Phone: Start: 11-25-2024 End: 11-25-2024 ambulatory Farzaneh Kt DO Work Phone: [facility] Work Phone: Start: 11-16-2024 End: 11-16-[address] Pam Koo MD -[facility] Work Phone: Start: 11-16-2024 End: 11-16-2024 ambulatory Pam Koo Facility:[facility] Start: 11-04-2024 End: 11-04-[address] Moises Mazariegos MD -[facility] Work Phone: Start: 11-04-2024 End: 11-04-2024 ambulatory Farzaneh Kt VSC Facility:[facility] Start: 10-28-2024 End: 10-28-2024 ambulatory Farzaneh Kt DO Work Phone: [facility] Work Phone: Start: 10-28-2024 End: 10-28-[address] Pam Koo MD -Laboratory Work Phone: Start: 10-28-2024 End: 10-28-2024 ambulatory Pam Koo Facility:[facility] Start: 10-26-2024 End: 10-26-[address] Pam Koo MD -[facility] Work Phone: Start: 10-26-2024 End: 10-26-2024 ambulatory Pam Koo Facility:[facility] Start: 10-26-2024 End: 10-26-2024 ambulatory Farzaneh Kt VSC Facility:[facility] Start: 10-12-2024 End: 10-12-[address] Pam Koo MD -[facility] Work Phone: Start: 10-12-2024 End: 10-12-2024 ambulatory Pam Koo Facility:[facility] Start: 09-30-2024 End: 09-30-2024 Patient encounter procedure Justina Guido CNM -[facility] Work Phone: Start: 09-30-2024 End: 09-30-2024 ambulatory Farzaneh Kt VSC Facility:[facility] Start: 09-16-2024 End: 09-16-2024 Patient encounter procedure Reshma Driscoll CNM -[facility] Work Phone: Start: 09-16-2024 End: 09-16-2024 ambulatory Farzaneh Kt VSC Facility:[facility] Start: 09-05-2024 End: 09-05-2024 ambulatory Farzaneh Kt DO Work Phone: [facility] Work Phone: Start: 09-05-2024 End: 09-05-2024 Patient encounter procedure Reshma COVINGTON -[facility] Start: 09-05-2024 End: 09-05-2024 ambulatory Farzaneh Kt VSC Facility:[facility] Start: 09-02-2024 End: 09-02-2024 ambulatory Farzaneh Kt DO Work Phone: [facility] Work Phone: Start: 09-02-2024 End: 09-02-[address] Pam Koo MD -Ultrasound, [facility] Work Phone: Start: 09-02-2024 End: 09-02-2024 ambulatory Farzaneh Kt VSC Facility:[facility] Start: 08-17-2024 End: 08-17-2024 Patient encounter procedure Caroline ROSALES -[facility] Work Phone: Start: 08-17-2024 End: 08-17-2024 ambulatory Farzaneh Kt [facility]SC [place] [place]: 08-17-2024 End: 08-17-2024 ambulatory Farzaneh Kt VSC Facility:[facility] Start: 08-01-2024 End: 08-01-2024 Patient encounter procedure Reshma COVINGTON -[facility] Work Phone: Start: 08-01-2024 End: 08-01-2024 ambulatory Farzaneh Kt VSC Facility:[facility] Start: 07-20-2024 End: 07-20-2024 Patient encounter procedure Caroline ROSALES -[facility] Work Phone: Start: 07-20-2024 End: 07-20-2024 ambulatory Farzaneh Kt VSC Facility:[facility] Start: 07-01-2024 End: 07-01-2024 ambulatory WARREN MELENDEZ [facility] Start: 06-29-2024 End: 06-29-[address] Pam Koo MD -[facility] Work Phone: Start: 06-29-2024 End: 06-29-2024 ambulatory Farzaneh Kt VSC Facility:[facility] Start: 06-17-2024 End: 06-17-2024 Patient encounter procedure Justina COVINGTONM -[facility] Work Phone: Start: 06-17-2024 End: 06-17-2024 ambulatory Farzaneh Kt VSC [place] [place]: 06-17-2024 End: 06-17-2024 ambulatory Farzaneh Kt VSC Facility:[facility] Start: 05-25-2024 End: 05-25-2024 Patient encounter procedure Justina Guido CNM -Laboratory Work Phone: Start: 05-25-2024 End: 05-25-2024 ambulatory Farzaneh Kt VSC Facility:[facility] Start: 05-23-2024 End: 05-23-2024 Patient encounter procedure Justina Guido CNM -Laboratory Work Phone: Start: 05-23-2024 End: 05-23-2024 ambulatory Farzaneh Kt VSC Facility:[facility] Start: 05-04-2024 End: 05-04-2024 ambulatory Farzaneh Kt VSC Facility:[facility] Start: 01-29-2024 End: 01-29-2024 ambulatory Warren Melendez Facility:[facility] Start: 09-25-2023 End: 09-25-[address] Warren Melendez Work Phone: [facility] Work Phone: Start: 09-25-2023 End: 09-25-[address] Warren Melendez Work Phone: [facility]-Laboratory, Specimen Work Phone: Start: 09-24-2023 End: 09-24-[address] Warren Melendez Work Phone: [facility] @ Start: 09-21-2023 End: 09-21-[address] Warren Melendez Work Phone: [facility] Work Phone: Start: 09-21-2023 End: 09-21-[address] [facility] Start: 09-10-2023 End: 09-10-[address] Warren Melendez Work Phone: [facility] @ Start: 08-17-2023 End: 08-17-2023 ambulatory [facility] Work Phone: Start: 08-17-2023 End: 08-17-2023 Patient encounter procedure [facility] Work Phone: Start: 08-03-2023 End: 08-03-2023 Patient encounter procedure [facility] Work Phone: Start: 07-29-2023 End: 07-29-2023 ambulatory [facility] Work Phone: Start: 07-29-2023 End: 07-29-2023 Patient encounter procedure [facility] Work Phone: Start: 07-27-2023 End: 07-27-2023 ambulatory [facility] Work Phone: Start: 07-27-2023 End: 07-27-2023 [facility] Start: 05-25-2023 End: 05-25-2023 Patient encounter procedure [facility] Work Phone: Start: 10-30-2022 End: 10-30-[address] Warren Melendez Work Phone: [facility] Start: 10-24-2022 End: 10-24-[address] Warren Melendez Work Phone: [facility] Work Phone: Start: 10-24-2022 End: 10-24-[address] Warren Melendez Work Phone: [facility]-Laboratory Start: 08-20-2022 End: 08-20-[address] Warren Melendez Work Phone: [facility] Start: 07-11-2022 Non-patient / Non-visit Dr. Warren Melendez Work Phone: [facility] Start: 07-10-2022 Non-patient / Non-visit Dr. Warren Melendez Work Phone: [facility] Start: 07-09-2022 Non-patient / Non-visit Dr. Warren Melendez Work Phone: [facility] Start: 07-09-2022 End: 07-11-2022 Evaluation and management of inpatient Dr. Warren Melendez Work Phone: [facility] Start: 07-03-2022 End: 07-03-[address] Warren Melendez Work Phone: [facility] Start: 06-27-2022 End: 06-27-[address] Warren Melendez Work Phone: [facility] Start: 06-20-2022 End: 06-20-[address] Warren Melendez Work Phone: [facility] Work Phone: Start: 06-20-2022 End: 06-20-[address] Warren Melendez Work Phone: [facility] Start: 06-16-2022 End: 06-16-[address] Warren Melendez Work Phone: [facility] Start: 06-02-2022 End: 06-02-[address] Warren Melendez Work Phone: [facility] Start: 05-23-2022 End: 05-23-[address] Warren Melendez Work Phone: [facility] Start: 05-23-2022 End: 05-23-[address] Warren Melendez Work Phone: [facility] Work Phone: Start: 05-23-2022 End: 05-23-[address] Warren Melendez Work Phone: [facility] Start: 05-09-2022 End: 05-09-[address] Warren Melendez Work Phone: [facility] Start: 04-21-2022 End: 04-21-[address] Warren Melendez Work Phone: [facility] Work Phone: Start: 04-21-2022 End: 04-21-[address] Warren Melendez Work Phone: [facility] Start: 03-25-2022 End: 03-25-[address] Warren Melendez Work Phone: [facility] Start: 02-24-2022 End: 02-24-[address] Warren Melendez Work Phone: [facility] Start: 01-28-2022 End: 01-28-[address] Warren Melendez Work Phone: [facility] Start: 01-08-2022 End: 01-08-[address] [facility] Start: 01-08-2022 End: 01-08-[address] Warren Melendez Work Phone: [facility] Start: 01-01-2022 End: 01-01-[address] Warren Melendez Work Phone: [facility] Start: 12-06-2021 End: 12-06-[address] [facility] Start: 12-05-2021 End: 12-05-[address] Warren Melendez Work Phone: [facility] Start: 11-19-2021 End: 11-19-2021 [facility] Start: 11-07-2021 End: 11-07-[address] Warren Melendez Work Phone: [facility] Therapy Start: 11-07-2021 Registered Recurring [facility] Start: 10-07-2021 End: 10-07-2021 [facility] Start: 09-11-2021 End: 09-11-2021 Patient encounter procedure [facility] Start: 08-22-2021 Registered Recurring [facility] Start: 08-09-2021 End: 08-09-2021 Patient encounter procedure [facility] Start: 10-30-2017 End: 10-30-2017 Ambulatory OPAL COOMBS Facility:[facility] Start: 08-18-2017 End: 08-18-2017 Ambulatory [facility]CTOR M [facility] Facility:[facility] Start: 06-03-2017 Ambulatory DARREN THOMSONJeff REYES Facility:[facility] Start: 04-23-2017 End: 04-23-2017 Ambulatory [facility] Start: 04-23-2017 Office outpatient visit 15 minutes Padma Lopez Work Phone: [facility] Start: 03-18-2017 End: 03-18-2017 Ambulatory ADRIÁN FLYNN Facility:[facility] Start: 02-06-2017 End: 02-06-2017 Ambulatory [facility] Facility:[facility] Start: 01-23-2017 End: 01-23-2017 Ambulatory VICTOR M CHERYLAL[facility]Y [facility] Start: 01-23-2017 End: 01-23-2017 Ambulatory [facility] Facility:[facility] Start: 01-19-2017 End: 01-19-2017 Ambulatory [facility] Facility:[facility] Procedures Date Procedure Procedure Detail Performing [...] DO Work Phone: Start: 06-17-2024 Urine culture Farzanhe davis DO Work Phone: Start: 06-20-2022 Ultrasound [...] Author Start: 12-23-2024 Ultrasound scan for growth [facility] Start: 07-11-2022 Patient discharge [facility] Start: 07-10-2022 End: 07-11-2022 [facility] Start: 07-10-2022 Administration of medication [facility] Start: 07-10-2022 Application of ice collar, cap or bag [facility] Start: 07-10-2022 Catheterization of vein [facility] Start: 07-10-2022 Introduction of urinary catheter [facility] Start: 07-10-2022 Measuring intake and output [facility] Start: 07-10-[address] [facility] Start: 07-10-2022 Procedure discontinued [facility] Start: 07-10-2022 Provision of activity privileges [facility] Start: 07-10-2022 Vital signs measurements [facility] Start: 07-09-2022 Admission procedure [facility] Start: 07-03-2019 Screening for malignant neoplasm of cervix PAP SMEAR [facility] Work Phone: Start: 03-13-2017 Influenza vaccination SEQUENTIAL INFLUENZA VACCINE (#1) [employer] Work Phone: Start: 2004 Vaccination for human papillomavirus HPV VACCINES (1 of 3 - Female 3 Dose Series) [employer] Work Phone: Start: 1993 Tetanus vaccination TETANUS EVERY 10 YR [employer] Work Phone: Liquid based cervica l cytology screening [facility] Patient referral [facility] Work Phone: Streptococcus agalac tiae [Presence] in Unspecified specimen by Organism specific culture [facility] T4 free measurement [facility] Thyroid stimulating hormone measurement [facility] Ultrasound scan for growth [facility] Work Phone: Ultrasound scan for growth [facility] Immunizations Immunization Date Immunization Notes Care Provider Fa cility 04-02-2020 Diptheria,Tetanus,Pe rtuss is Vaccine [facility] 02-09-2020 tetanus toxoid, redu patt diphtheria toxoid, and acellular pertussis vaccine, adsorbed [facility] 02-09-2020 diphtheria, tetanus toxoids and acellular pertussis vaccine, unspecified formulation [facility] Work Phone: Payers Date Payer Category Payer Unknown [id number] 2024 Self-pay [id number] 2023 Unknown [id number] 2023 Unknown [id number] 2017 Unknown [id number] 2016 Private Health Insurance [id number] 2013 Unknown 2013 Medicaid [id number] 2012 Unknown [id number] 1993 Unknown [id number] 2.16. 840.1.026776.3.579.2.479 1993 Unknown [id number] 2.16. 840.1.067652.3.579.2.479 Unknown [id number] Unknown [id number] 2.16.8 40.1.097521.3.579.2.462 Unknown [id number] 2.16.8 40.1.330888.3.579.2.462 Unknown [id number] 2.16.8 40.1.786112.3.579.2.462 Unknown [id number] 2.16.8 40.1.263061.3.579.2.462 Unknown [id number] 2.16.8 40.1.326833.3.579.2.462 Unknown [id number] 2.16.8 40.1.393032.3.579.2.462 Unknown [id number] 2.16.8 40.1.754277.3.579.2.462 Unknown [id number] 2.16.8 40.1.801493.3.579.2.462 Unknown [id number] 2.16.8 40.1.216325.3.579.2.462 Unknown [id number] 2.16.8 40.1.626531.3.579.2.462 Unknown [id number] 2.16.8 40.1.713433.3.579.2.462 Unknown [id number] 2.16.8 40.1.429465.3.579.2.462 Unknown [id number] 2.16.8 40.1.455878.3.579.2.462 Unknown [id number] 2.16.8 40.1.455563.3.579.2.462 Unknown [id number] 2.16.8 40.1.092561.3.579.2.462 Unknown [id number] 2.16.8 40.1.881543.3.579.2.462 Unknown [id number] 2.16.8 40.1.739773.3.579.2.462 Unknown [id number] 2.16.8 40.1.409413.3.579.2.462 Unknown [id number] 2.16.8 40.1.506256.3.579.2.462 Unknown [id number] 2.16.8 40.1.289792.3.579.2.462 Unknown [id number] 2.16.8 40.1.412589.3.579.2.462 Unknown [id number] 2.16.8 40.1.892252.3.579.2.462 Unknown [id number] 2.16.8 40.1.240052.3.579.2.462 Unknown [id number] 2.16.8 40.1.012165.3.579.2.462 Unknown [id number] 2.16.8 40.1.963081.3.579.2.462 Unknown [id number] 2.16.8 40.1.050364.3.579.2.462 Unknown [id number] 2.16.8 40.1.030219.3.579.2.462 Unknown [id number] 2.16.8 40.1.847056.3.579.2.462 Unknown [id number] 2.16.8 40.1.204631.3.579.2.462 Unknown [id number] 2.16.8 40.1.189122.3.579.2.462 Unknown [id number] 2.16.8 40.1.338224.3.579.2.462 Social History Date Type Detail Facility Start: 04-23-2017 End: 01-12-2025 Tobacco smoking status CAIS Never smoker [facility] Sex Assigned At Not on file [facility] Phone: Start: 06-17-2021 End: 09-24-2023 Tobacco smoking status [facility] Unknown if ever smoked [facility] Start: 03-14-2020 Non-smoker [facility] Start: 1995 Sex Assigned At Female [facility] Start: 09-15-2024 End: 11-02-2024 Sex Female (finding) [facility] Medical Equipment Procedure Code Equipment Code Equipment [...] & Type Note Facility 01-05-2025 Progress note [facility] 12-29-2024 Progress note [facility] 12-29-2024 Progress note Note Date/Time December 29, 2024 3:53pm [facility]'s [address], [address] [place] [address] OFFICE VISIT Date of Service: 12/29/24 MR#: [id number] Acct: [id number] Name: ELCECYCHANTELLE DASH Rep #: [id number] : 1995 Provider: CARON Driscoll Age/Sex: 29/F [place] [facility] [place] Status: Signed Intake Vital Signs 11/16/24 09:19 12/19/24 14:13 12/29/24 15:32 12/29/24 15:36 Height 5 ft 3 in 5 ft 3 in 5 ft 3 in 5 ft 3 in Weight: 157 lb 8 oz BMI 27.8 BP 121/69 H Intake Visit Reasons: 37 wk ob Chief Complaint: 37 Week OB Line Analyst Required: No Is patient in pain?: No [...] 1-2 times per week duration: 15-30 minutes/day femi/mu-ism: Methodist seatbelt use: always do you feel safe at home: Yes 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 delivery by 40 (5) History of recurrent miscarriages: Status: Acute Comment: on progesterone until 10-12 weeks (6) Chiari malformation type I: Status: Chronic Comment: s/p neurosurgery consult. no regional anesthesia. 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 Reading Location: [id number] CC: CARON Guido; Farzaneh Meraz DO ~ Business Law Professor: Signed [facility]06-09-2025 Progress [facility] [address], [address] [place] [address] OFFICE VISIT Date of Service: 12/19/24 MR#: [id number] Acct: [id number] Name: CECY GALLEGOS Rep #: [id number] : 1995 Provider: Dr. 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 anatomy reviewed. (5) History of recurrent miscarriages: Status: Acute Comment: on progesterone until 10-12 weeks (6) Chiari malformation type I: Status: Chronic Comment: s/p neurosurgery consult. no regional anesthesia. 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 (8) ASCUS of cervix with negative high risk HPV: Status: Acute Comment: repeat pap 3 yrs, 09/2023 Neg pap/Neg HPV Orders: Orders POC Urinalysis 2 Dip (Clinic) Today 12/19/24 1445 jeff Roger DO> Date _ Keshia Galvez DO Cosign Signature: Date (if applicable) CC: ~ [facility] [id number] Progress note Author Keshia Roger [facility] Note Date/Time December 19, 2024 2:45p [facility] [address] [place] [address], [address] [place] [address] OFFICE VISIT Date of Service: 12/19/24 MR#: [id number] Acct: [id number] Name: CECY GALLEGOS Rep #: [id number] : 1995 Provider: Dr. 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 no regional anesthesia. 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 (8) ASCUS of cervix with negative high risk HPV: Status: Acute Comment: repeat pap 3 yrs, 09/2023 Neg pap/Neg HPV Orders: Orders POC Urinalysis 2 Dip (Clinic) Today 12/19/24 0845 <Electronically signed by Keshia Myers DO> Date _ Keshia Galvez DO [facility] Signature: Date (if applicable) CC: ~ [facility] Work Phone: 1(771) 307-983505-16-2025 Progress [facility] [address] [place] [address], [address] [place] [address] OFFICE VISIT Date of Service: 11/25/24 MR#: [id number] Acct: [id number] Name: CECY GALLEGOS Rep #: [id number] : 1995 Provider: Dr. 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 anatomy reviewed. (5) History of recurrent miscarriages: Status: Acute Comment: on progesterone until 10-12 weeks (6) Chiari malformation type I: Status: Chronic Comment: s/p neurosurgery consult. no regional anesthesia. 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 (8) ASCUS of cervix with negative high risk HPV: Status: Acute Comment: repeat pap 3 yrs, 09/2023 Neg pap/Neg HPV Orders: Orders POC Urinalysis 2 Dip (Clinic) Today 11/25/24 1028 yaya MARIE> Date _ Pam Koo MD Cosign Signature: Date (if applicable) CC: ~ [facility]03-07-2025 Evaluation note* Diagnosis Onset Date Resolution Status [...] due to Erick's thyroiditis chronic December 2:07pm [facility] Work Phone: 1(790) 655-136803-07-2025 Evaluation note* Diagnosis Onset Date Resolution Status [...] due to Erick's thyroiditis chronic December 3:27pm [facility] Work Phone: 1(572) 209-684003-07-2025 Evaluation note* Diagnosis Onset Date Resolution Status [...] due to Erick's thyroiditis chronic December 11:34am [facility] Work Phone: 1([phone]) 233-802803-07-2025 Evaluation note* Diagnosis Onset Date Resolution Status [...] due to Erick's thyroiditis chronic January 8:27am [facility] Work Phone: 1(613) 175-957702-21-2025 Radiology Diagnostic study note [facility] Imaging Services [address] [place] [address] OB Anatomy w/ Transvaginal MR#: [id number] Acct: [id number] Name: CECY GALLEGOS Rep #: [id number] : 1995 F 29 From: Kendall Nunes MD PCP: Farzaneh Meraz DO Status: REG CLI Study:OB Anatomy w/ Transvaginal Date of Exam : 09/02/24 Exam# [id number] Ordering Dr: Caroline Stern FAMILY PRACTICE DOCTOR FAMILY PRACTICE DOCTOR-C PROCEDURE: OB ANATOMY W/ TRANSVAGINAL REASON FOR [...] 4 mm choroid plexus cyst. Reading Location: [place] [address] CC: CONNIE Stern; DO Bibi Hernandez Business Law Professor: Signed [facility]02-05-2025 Evaluation note* Diagnosis Onset Date Resolution Status [...] due to Erick's thyroiditis chronic November 9:56am [facility] Work Phone: 1(990) 249-660401-20-2025 Evaluation note* Diagnosis Onset Date Resolution Status [...] due to Erick's thyroiditis chronic November 10:02am [facility] Work Phone: 1(384) 466-445101-08-2025 Evaluation note* Diagnosis Onset Date Resolution Status [...] to Erick's thyroiditis chronic October 262024 10:25am [facility] Work Phone: 1(245) 866-117212-06-2024 Evaluation note* Diagnosis Onset Date Resolution Status [...] Erick's thyroiditis chronic August 17, 2024 2:56pm [facility] Work Phone: 1(521) 323-237103-15-2024 NotePap Smear Specimen AdequacyMar 2023 12:56pmComment.Satisfactory for evaluation. Endocervical and/or squamous metaplasticcells (endocervical component)are present.[facility]ED A#[id number] State Harding HospitalComment on above:Satisfactory for evaluation. Endocervical and/or squamous metaplasticcells (endocervical component)are present.Evaluation noteNo assessment information availableWOhio State Harding Hospital Work Phone: Evaluation note* Diagnosis Onset Date Resolution Status Nausea/vomiting in acute acute Supervision of high-risk acute Thyroid disease affecting acute Chiari malformation type I c hronic [facility] Work Phone: Evaluation note* Diagnosis Onset [...] acute Chiari malformation type I c hronic [facility] Work Phone: Evaluation note* Diagnosis Onset [...] acute Chiari malformation type I c hronic [facility] Work Phone: Evaluation note* Diagnosis Onset [...] acute Chiari malformation type I c hronic [facility] Work Phone: Evaluation note* Diagnosis Onset [...] acute Chiari malformation type I c hronic [facility] Work Phone: Evaluation note* Diagnosis Onset [...] acute Chiari malformation type I c onic [facility] Work Phone: Evaluation note* Diagnosis Onset Date Resolution Status ASCUS of cervix with negative high risk HPV acute Thyroid disease affecting acute Chiari malformation type I c hronic ASCUS of cervix with negative high risk HPV acute normal course acu te Thyroid disease affecting acute Chiari malformation type I c hronic Thyroiditis acute [facility] Work Phone: Evaluation note* Diagnosis Onset Date Resolution Status Pre-conception counseling ac [place] Thyroiditis acute Encounter for routine gynecological examination noneactive Cervical cancer screening ac [facility] Work Phone: Progress note Author Pam Koo [facility] Note Date/Time November 25, 2024 10:28 am [facility] [address] [place] [address], [address] [place] [address] OFFICE VISIT Date of Service: 11/25/24 MR#: [id number] Acct: [id number] Name: CECY GALLEGOS Rep #: [id number] : 1995 Provider: Dr. 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 no regional anesthesia. 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 (8) ASCUS of cervix with negative high risk HPV: Status: Acute Comment: repeat pap 3 yrs, 09/2023 Neg pap/Neg HPV Orders: Orders POC Urinalysis 2 Dip (Clinic) Today 11/25/24 1028 <Electronically signed by Pam javier MD> Date _ Pam Koo MD Cosigner Signature: Date (if applicable) CC: ~ [facility] Work Phone: Progress note Author Pam Koo [facility] Note Date/Time January 05, 2025 11:5 9am [facility] [address], [address] [place] [address] OFFICE VISIT Date of Service: 01/05/25 MR#: [id number] Acct: [id number] Name: CECY GALLEGOS Rep #: [id number] : 1995 Provider: Dr. 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 anatomy reviewed. (6) History of recurrent miscarriages: Status: Acute Comment: on progesterone until 10-12 weeks (7) Chiari malformation type I: Status: Chronic Comment: s/p neurosurgery consult. no regional anesthesia. 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: Status: Chronic (9) ASCUS of cervix with negative high risk HPV: Status: Acute Comment: repeat pap 3 yrs, 09/2023 Neg pap/Neg HPV Orders: Orders POC Urinalysis 2 Dip (Clinic) Today 01/05/25 1159 <Electronically signed by Pam javier MD> Date _ Pam Koo MD Cosigner Signature: Date (if applicable) CC: ~ [facility] Work Phone: Reason for referral (narrative)No reason for referral information availableWOhio State Harding Hospital Work Phone: Assessments Diagnosis Irregular bleeding - Primary Irregular menstrual cycle Summary Purpose Family History No Family History Records Found Relationship Condition Age at Onset Recorded Date/T sanju father Unknown Advance Directives No Advanced Directives Records Found Advance Directive Response Recorded Date/ Time Living Will No April 29 1:05pm Power of Yard Supervisor No April 29, 2020 1:05pm Advance Directive Response Recorded Date/ Time Living Will No January 08, 2022 8:09am Power of Yard Supervisor No January 08 8:09am Advance Directive Response Recorded Date/ Time Living Will No January 08, 2022 7:09am Power of Yard Supervisor No January 08 7:09am Advance Directive Response Recorded Date/ Time Living Will No July 09 022 8:30pm Power of Yard Supervisor No July 09, 2022 8:30pm Advance Directive Response Recorded Date/ Time Living Will No July 09 022 9:30pm Power of Yard Supervisor No July 09, 2022 9:30pm Advance Directive Response Recorded Date/ Time Living Will No January 08, 2024 12:15pm Power of Yard Supervisor No January 07 12:15pm Advance Directive Response Recorded Date/ Time Living Will No July 09 022 9:30pm Do you have a Healthcare Power of Yard Supervisor? No July 09, 2022 9:30pm Chief Complaint [...] Chief Complaint EORDER E-ORDER NEED ORDER Annual (COLD FOOD PACKER) E ORDERS Annual (COLD FOOD PACKER) Reason for Visit Pre-conception couns eling Thyroiditis Encounter for routine gynecological examination Cervical cancer screening Chief Complaint EORDER E-ORDER NEED ORDER Annual (COLD FOOD PACKER) E ORDERS Annual (COLD FOOD PACKER) ANNUAL PAP Reason for Visit Pre-conception couns [...] October 26, 025 10:25am Hypothyroidism due to Reick's thyroi ditis October 26, 2024 10:25am Gestational [...] section and content) DATE CREATED AUTHOR 12/31/2017 [facility] DATE CREATED AUTHOR AUTHOR'S ORGANIZ ATION 01/05/2018 [facility] [place] DATE CREATED AUTHOR AUTHOR'S ORGANIZ ATION 01/05/2018 [facility] DATE CREATED AUTHOR AUTHOR'S ORGANIZ ATION 01/06/2018 [facility] DATE CREATED AUTHOR AUTHOR'S ORGANIZ ATION 01/06/2018 [facility] DATE CREATED AUTHOR AUTHOR'S ORGANIZ ATION 07/11/2024 [facility] DATE CREATED AUTHOR AUTHOR'S ORGANIZ ATION 01/12/2025 [facility] Goals (unrecognized section and content) Goals may [...] MD Primary Care Provider Active Caroline Stern FAMILY PRACTICE DOCTOR, FAMILY PRACTICE DOCTOR-C Attending Provider, Referring Provider Active Team Status: Active Member Role Status Dates Dr. Warren Melendez MD Primary Care Provider Active Caroline Stern FAMILY PRACTICE DOCTOR, FAMILY PRACTICE DOCTOR-C Attending Provider, Referring Provider Active Team Status: [...] 2024 End: July 20, 2024 Caroline Stern FAMILY PRACTICE DOCTOR, FAMILY PRACTICE DOCTOR-C Attending Provider Active Start: July 20, 2024 [...] 2024 End: August 17, 2024 Caroline Stern FAMILY PRACTICE DOCTOR, FAMILY PRACTICE DOCTOR-C Attending Provider Active Start: August 17, 2024 End: August 17, 2024 Team Status: Inactive Member Role Status Dates Farzaneh Meraz VSC, DO Primary Care Provider Active Start: August 17, 2024 End: August 17, 2024 Caroline Stern FAMILY PRACTICE DOCTOR, FAMILY PRACTICE DOCTOR-C Attending Provider Active Start: August 17, 2024 [...] 16, 2024 End: September 16, 2024 Reshma Drisocll CNM Attending Provider Active S tart: September [...] BE BASED ON THE PRIMARY CLINICAL RECORDS. [facility]. provides no warranty or guarantee of the accuracy or completeness of information in this document.
== END 2025-01-18 13:30 | disposition home or self-care (01) | DRG 805 ==
LOC: WPOUT 18:17 → WP 18:18
PROVIDERS: Admitting Provider Advanced Practice Midwife; PCP Family Medicine; Referring Provider Advanced Practice Midwife; Visit Provider Advanced Practice Midwife
DX: O24.420 Gestational diabetes mellitus in childbirth, diet controlled (principal); Z37.0 Single live birth; G93.5 Compression of brain; E72.12 Methylenetetrahydrofolate reductase deficiency; O99.354 Diseases of the nervous system complicating childbirth; E06.3 Autoimmune thyroiditis; N96 Recurrent pregnancy loss; Z3A.39 39 weeks gestation of pregnancy; O99.284 Endocrine, nutritional and metabolic diseases complicating childbirth; O99.824 Streptococcus B carrier state complicating childbirth; B95.1 Streptococcus, group B, as the cause of diseases classified elsewhere; O99.892 Other specified diseases and conditions complicating childbirth; R87.610 Atypical squamous cells of undetermined significance on cytologic smear of cervix (ASC-US); O70.0 First degree perineal laceration during delivery; O69.81X0 Labor and delivery complicated by cord around neck, without compression, not applicable or unspecified
CPT/HCPCS: 59025; 59050; 82962; 84112; 85025; 86780; 86850; 86900; 86901; 99221; G0378

== ENCOUNTER → 2025-02-27 | Outpatient (CLI) | payer BC, SELFPAY | END | disposition home or self-care (01) | PROVIDERS: PCP Family Medicine; Referring Provider Obstetrics & Gynecology; Visit Provider Obstetrics & Gynecology | DX: E03.8 Other specified hypothyroidism (principal); E06.3 Autoimmune thyroiditis | CPT/HCPCS: 36415; 84439; 84443 ==

== ENCOUNTER → 2025-06-28 | Outpatient (CLI) | payer BC, SELFPAY ==
[2025-06-28 16:59] LABS: Hematocrit 38.5 % (37-47); Hemoglobin 13.0 g/dL (12.0-15.0); Immature Granulocytes Count 0.000 X10^3/uL (0.0-0.0); Mean Corp Hgb Conc 33.8 g/dL (32-36); Mean Corpuscular Volume 88.7 fL (81-99); Mean Platelet Vol. 9.4 fl (6.2-12.0); NRBC Flagged by Analyzer 0 % (0-5); Platelet Count 284 K/mm3 (150-450); RBC Distribution Width CV 11.3 % (11.6-14.6); RBC Distribution Width SD 36.7 fl (35.1-43.9); Red Blood Count 4.34 M/mm3 (4.2-5.4); White Blood Count 4.1 K/mm3 (4.4-11.0)
[2025-06-28 17:45] LABS: AST(SGOT) 26 U/L (<=31); Alanine Aminotransfer ALT/SGPT 30 U/L (<=34); Albumin, Serum 4.5 g/dL (3.5-5.0); Alkaline Phosphatase 82 U/L (35-104); Anion Gap 14 (5-15); BUN 11 mg/dL (4-19); BUN/Creat Ratio 18.2 RATIO (10-20); Calcium,Total 9.6 mg/dL (7.6-11.0); Carbon Dioxide 26.9 mmol/L (21.0-32.0); Chloride 102 mmol/L (98-108); Ferritin 154 ng/mL (22-378); Globulin 2.6 g/dL (2.2-4.2); Glucose 73 mg/dL (70-99); Iron 120 ug/dL (50-170); Iron Binding Capacity,Total 317 ug/dL (250-450); Iron Binding Capacity,Unsat 197 ug/dL (228-428); Potassium 4.3 mmol/L (3.3-5.1); Vitamin B12 710 pg/mL (180-914); Vitamin D,25 Hydroxy 16.3 ng/mL (30-100)
--- OUTSIDE RECORDS SUMMARY | 2025-06-28 19:24 | XMS RPT_ITS | CCD ---
Author Organization [facility] Care Team Providers Care Weigher And Charger Name Role Phone Hoppes, Opal A. Unavailable [...] Care Provider Dr. Warren Melendez Referring Provider [phone] Pam Koo Attending Provider Dr. Keshia Galvez Attending Provider Dr. Warren Melendez Primary Care Provider Dr. Warren Melendez Referring Provider Jarred SOFTWARE SUPPORT TECHNICIAN, SOFTWARE SUPPORT TECHNICIAN-C Caroline Attending Provider Dr. Pam Koo Attending Provider Dr. Warren Melendez Primary Care Provider Dr. Warren Melendez Referring Provider Dr. Pam Koo Attending Provider Jarred SOFTWARE SUPPORT TECHNICIAN, LISSA-C Caroline Attending Provider Dr. Keshia Galvez [...] NANCY FORTUNE Attending Unavailable KESHIA PERERA Referring Unavailab le Farzaneh Meraz DO Primary Care Provider Justina Guido CNM Attending Provider Hay COVINGTONMAnthonyJustina Referring Provider Farzaneh Meraz DO Referring Provider Hanane MARIE, Dr. Orozco Attending Provider [phone] Jarred ALCARAZ-CCaroline Attending Provider Reshma Driscoll CNM Attending Provider [phone] Hanane MARIE, Dr. Orozco Referring Provider Americo CNM, Reshma Referring Provider Kt DO, Farzaneh Primary Care Provider Kt DO, Farzaneh Referring Provider [place] SOFTWARE SUPPORT TECHNICIAN-C, Caroline Attending Provider Americo COVINGTONM, Reshma Attending Provider Hanane MARIE, Dr. Orozco Attending Provider [phone] Hanane MARIE, Dr. Orozco Referring Provider Americo CNM, Reshma Referring Provider [phone] Guido CNM, Justina Attending Provider Kt DO, Farzaneh Primary Care Provider Kt DO, Farzaneh Referring Provider [place] SOFTWARE SUPPORT TECHNICIAN-C, Caroline Attending Provider King CYNTHIA, Dr. De Leon Attending Provider Kt DO, Farzaneh Primary Care Provider Kt DO, Farzaneh Referring Provider Americo COVINGTONM, Reshma Attending Provider Kt DO, Farzaneh Primary Care Provider Kt DO, Farzaneh Referring Provider Dr. Keshia Galvez DO Attending Provider Dr. Keshia Galvez DO Referring Provider Hay COVINGTONM, Justina Referring Provider Kt DO, Farzaneh Primary Care Provider Americo COVINGTONM, Reshma Attending Provider [phone] Hanane MARIE, Dr. Orozco Attending Provider [phone] Americo COVINGTONM, Reshma Referring Provider [phone] Dr. Pam Koo MD Referring Provider Kt DO, Farzaneh Primary Care Provider Kt DO, Farzaneh Referring Provider Americo COVINGTONM, Reshma Attending Provider [phone] Americo CNM, Reshma Admit Provider Americo CNM, Reshma Other Provider [phone] Jarred SOFTWARE SUPPORT TECHNICIAN-C, Caroline Attending Provider [phone] Kt DO, Farzaneh Primary Care Provider Kt DO, Farzaneh Referring Provider Hanane MARIE, Dr. Orozco Attending Provider Hay CNM, Justina Attending Provider [phone] Americo CNM, Reshma Attending Provider [phone] Americo CNMirela, Reshma Referring Provider [phone] Kt, Farzaneh Primary Care Unavailable Reshma Driscoll Referring Unavailable Reshma Driscoll Attending Unavailable Kt, Farzaneh Primary Care Unavailable Hay, Justina Referring Unavailable Justina Guido Attending Unavailable Kt, Farzaneh Primary Care Unavailable Reshma Driscoll Attending Unavailable Reshma Driscoll Referring Unavailable Kt, Farzaneh Primary Care Unavailable Kt, Farzaneh Referring Unavailable Pam Koo Attending Unavailable Kt, Farzaneh Primary Care Unavailable Reshma Driscoll Attending Unavailable Reshma Driscoll Referring Unavailable Kt, Farzaneh Primary Care Unavailable Anthony Guidosay Referring Unavailable Justina Guido Attending Unavailable Kt, Farzaneh Primary Care Unavailable Keshia Galvez Referring Unavailabl e Keshia Galvez Attending Unavailabl e Kt, Farzaneh Referring Unavailable Reshma Driscoll Attending Unavailable Kt, Farzaneh Primary Care Unavailable Kt, Farzaneh Primary Care Unavailable Keshia Galvez Referring Unavailabl e Keshia Galvez Attending Unavailabl e Kt, Farzaneh Primary Care Unavailable Kt, Farzaneh Referring Unavailable Justina Guido Attending Unavailable Kt, Farzaneh Referring Unavailable Kt, Fazraneh Primary Care Unavailable Keshia Galvez Attending Unavailabl e Kt, Farzaneh Referring Unavailable Kt, Farzaneh Primary Care Unavailable Reshma Driscoll Attending Unavailable Kt, Farzaneh Referring Unavailable Kt, Farzaneh Primary Care Unavailable Pam Koo Attending Unavailable Kt, Farzaneh Primary Care Unavailable Kt, Farzaneh Referring Unavailable Moises Mazariegos Attending Unavailable Kt, Farzaneh Primary Care Unavailable Kt, Farzaneh Referring Unavailable Jarred SOFTWARE SUPPORT TECHNICIAN, Caroline Attending Unavailable Kt, Farzaneh Primary Care Unavailable Kt, Farzaneh Referring Unavailable Pam Koo Attending Unavailable Kt, Farzaneh Primary Care Unavailable Kt, Farzaneh Referring Unavailable Reshma Driscoll Attending Unavailable Kt, Farzaneh Primary Care Unavailable Pam Koo Referring Unavailable Pam Koo Attending Unavailable Reshma Driscoll Consulting Unavailable Reshma Driscoll Admitting Unavailable Reshma Driscoll Referring Unavailable Jarred SOFTWARE SUPPORT TECHNICIAN, Caroline Attending Unavailable Kt, Farzaneh Primary Care Unavailable Kt, Farzaneh Referring Unavailable Kt, Farzaneh Primary Care Unavailable Pam Koo Attending Unavailable Kt, Farzaneh Primary Care Unavailable Kt, Farzaneh Referring Unavailable Keshia Galvez Attending Unavailabl e Kt, Farzaneh Primary Care Unavailable Pam Koo Referring Unavailable Pam Koo Attending Unavailable Reshma Driscoll Admitting Unavailable Reshma Driscoll Attending Unavailable Reshma Driscoll Referring Unavailable Kt, Farzaneh Primary Care Unavailable Kt, Farzaneh Primary Care Unavailable Keshia Galvez Attending Unavailabl e Andre VelKeshia peng Referring Unavailabl e Kt, Farzaneh Primary Care Unavailable Kt, Farzaneh Referring Unavailable Justina Guido Attending Unavailable Kt, Farzaneh Primary Care Unavailable [place] SOFTWARE SUPPORT TECHNICIAN, Caroline Attending Unavailable Kt, Farzaneh Primary Care Unavailable Kt, Farzaneh Referring Unavailable Pam Koo Attending Unavailable Kt, Farzaneh Primary Care Unavailable Kt, Farzaneh Referring Unavailable Pam Koo Attending Unavailable Kt, Farzaneh Primary Care Unavailable Kt, Farzaneh Referring Unavailable Reshma Driscoll Attending Unavailable Kt, Farzaneh Primary Care Unavailable Kt, Farzaneh Referring Unavailable Jarred SOFTWARE SUPPORT TECHNICIAN, Caroline Attending Unavailable Kt, Farzaneh Primary Care Unavailable Kt, Farzaneh Referring Unavailable Pam Koo Attending Unavailable Kt, Farzaneh Primary Care Unavailable Kt, Farzaneh Referring Unavailable Justina Guido Attending Unavailable Reshma Driscoll Attending Unavailable Reshma Driscoll Consulting Unavailable Reshma Driscoll Admitting Unavailable Reshma Driscoll Referring Unavailable Kt, Farzaneh Primary Care Unavailable Reshma Driscoll Attending Unavailable Farzaneh Meraz Primary Care Unavailable Justina Guido Attending Unavailable Justina Guido Referring Unavailable Allergies Allergy Classification Reported Allergen(s) Allergy Type Date of Onset Reaction(s) Facility (20 sources) Banana Extract; Translations: [BANANA] Drug Allergy 9 [facility] (1 source) Latex; Translations: [LATEX] Propensity to adverse reactions to drug (disorder) 4 [facility] Repository (1 source) OTHER; Translations: [OTHER] Propensity to adverse reactions to food (disorder) 0 [facility] Repository (15 sources) natural latex rubber Allergy to substance 5 [facility] (1 source) Banana Extract Drug Allergy 5 [facility] Repository (1 source) natural latex rubber Drug allergy (disorder) 5 [facility] Repository Medications Current Medications Medication Drug Class(es) Dates Sig (Normalized) Sig (Original) Pnv #07-Mdng-Lbuvl Acid-Omega3 30 mg iron-10 mg iron-1 mg capsule (15 sources) Start: 04-07-2019 Pnv #64-Doia-Hjrht Acid-Omega3 30 mg iron-10 mg iron-1 mg [...] 2:56pm Start: 04-07-2019 take 1 capsule by [facility] once daily vitamin#30 30 mg iron-10 mg iron-folic acid 1 mg-omg3 capsule Active 1 CAP PO DAILY April 06, 2019 11:00pm Start: 04-07-2019 take 1 capsule by [facility] once daily vitamin#30 30 mg iron-10 mg iron-folic acid 1 mg-omg3 capsule Active 1 CAP PO DAILY April 07, 2019 12:00am Completed/Discontinued Medications Medication Drug Class(es) Dates Sig (Normalized) Sig (Original) aspirin 81 mg delayed release oral tablet (20 sources) Platelet Aggregation Inhibitor, Nonsteroidal Anti-inflammatory Drug Start: 12-22-2023 End: 02-27-2025 take 1 tablet by mouth once daily Aspirin (Adult Aspirin Regimen) 81 mg tablet,delayed release (DR/EC) Discontinued 81 mg PO DAILY December 22, 2023 12:00am February 27, 2025 9:44am Start: 11-06-2021 End: 10-30-2022 take 1 tablet [...] June 13, 2020 12:41pm Blood-Glucose Meter misc (13 sources) Start: 10-28-2024 End: 02-27-2025 Blood-Glucose Meter misc Dis continued 0 .ROUTE .MEDSUPPLY 1 0 October 28, 2024 12:00am February 27, 2025 9:44am As directed Start: 10-28-2024 Blood-Glucose Meter misc Active 0 .ROUTE .MEDSUPPLY 1 0 October 28, 2024 12:00am As directed Start: 10-28-2024 Blood-Glucose Meter misc Active 0 .ROUTE .MEDSUPPLY 1 October 28, 2024 12:00am As directed calcium carbonate 625 mg / cholecalciferol 125 [...] tablet Discontinued 25 ug PO DAILY 30 April 14, 2022 11:09am July 09, 2022 8:01pm lidocaine 0.04 mg/mg topical gel (20 sources) Antiarrhythmic, Amide Local Anesthetic Start: 04-07-2019 End: 09-16-2019 Lidocaine 4 % gel Discontinued 1 NMA TOPICAL 2 to 4 times per day as needed for pain 30 April 07, 2019 12:00am September 16, 2019 12:39pm meloxicam 7.5 mg oral tablet (20 sources) Nonsteroidal Anti-inflammatory Drug Start: 05-02-2018 End: 10-26-2018 take 1 tablet by mouth once daily Meloxicam 7.5 mg tablet Discontinued 7.5 mg PO DAILY May 02, 2018 12:00am October 26, 2018 3:14pm Start: 02-11-2017 meloxicam (MOB IC) 15 MG tablet metFORMIN hydrochloride 500 mg oral tablet (12 sources) Biguanide Start: 11-04-2024 End: 01-12-2025 take 1 tablet by mouth once daily Metformin 500 mg tablet Discontinued 500 mg PO daily 30 November 04, 2024 12:00am January 12, 2025 8:34am progesterone 200 mg oral capsule (15 sources) Progesterone Start: 05-17-2024 End: 10-12-2024 Progesterone Micronized (Prometrium) 200 mg capsule Discontinued 200 mg VAGINAL AT BEDTIME 30 30 3 May 17, 2024 1:00am October 12, 2024 [...] mg PO TWICE A DAY 20 10 0 April 07, 2019 12:00am April 16, 2019 12:00am April 18, 2019 12:08am initial outbreak Problems Active Problems Problem Classification Problem Date Documented Date Episodic/Chronic Contraceptive and procreative management (19 sources) Patient encounter status; Translations: [Encounter for other general counseling and advice on procreation] 09-10-2023 Episodic Hemorrhage during ; abruptio placenta; placenta previa (20 sources) Bleeding from female genital tract during ; Translations: [Antepartum hemorrhage, unspecified, unspecified trimester] Episodic Comment on above: 09/21/19- small 4mm s ubchorionic bleed. viable IUP seen Immunizations and screening for infectious disease (15 sources) Autoantibody titer positive; Translations: [Other specified [...] above: PRR , GERMAN 5, PC [place], Icard Tayo PRR GERMAN 07/13/22 girl Annabelle PC River Tayo PRR (awaiting GCC), GERMAN 08/08/24, PC [place], Icard, [place] Other complications of (13 sources) Nausea and [...] other high-risk ] Episodic Other complications of (15 sources) Missed miscarriage; Translations: [Missed ] 06-03-2024 Episodic Other complications of (20 sources) H/O: miscarriage; Translations: [Supervision of with other poor reproductive or obstetric history, unspecified trimester] 01-12-2024 Episodic Other nervous system disorders (20 sources) Chiari malformation type I; Translations: [Compression of brain] 08-20-2022 Chronic Comment on above: s/p neurosurgery con sult. no regional anesthesia. 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 has support, moods stable. PP depression s/sx reviewedno further restrictions on activities. may resume sexual intercourse. 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 SROM/IAL at term. un medicated. girl:Annabelle Rouse. LC HCG x2, TVUS NIPT low risk anatomy nl, genetic and carrier ntd screening declined. echo @ 24 wks nl, 05/26 nl growth EFW 2015 gms +/- 302gm 38th%. 06/30 nl growth EFW 2957gms +/- 444gms 49%. declined genetic & c arrier testing NIPT low risk, juan er and ntd screen declined. anatomy reviewed. 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 Thyroid disorders (20 sources) Thyroiditis; Translations: [Thyroiditis, unspecified] Onset: 02-09-2010-30-2022 Chronic Comment on above: thyroid antibodies, tsh/free t3/4 ordered nob and q trimester.Ordered today:Dr Mazariegos wanted in 8 wk Unclassified (1 source) Unknown / UNK(Unknown) Onset: 04-23-20 17 Unclassified (20 sources) Marginal insertion of umbilical cord; Translations: [Marginal insertion of umbilical cord] Unclassified (2 sources) Female genital prolapse Unclassified (4 sources) N81.9 - Female genital prolapse, unspecified Past or Other Problems Problem Classification Problem Date Documented Da te Episodic/Chronic Bacterial infection; unspecified site (20 sources) Bacteria present; Translations: [Streptococcus, group B, as the cause of diseases classified elsewhere] Onset: 01-05-2025 01-02-2025 Episodic Comment on above: treat in labor Cancer of cervix (20 sources) Atypical squamous cells of undetermined significance on cervical Papanicolaou smear; Translations: [Atypical squamous cells of undetermined significance on cytologic smear of cervix (ASC-US)] Onset: 01-05-2025 Episodic Comment on above: repeat pap 3 yrs, 2023 Neg pap/Neg HPV Diabetes or abnormal glucose tolerance complicating ; childbirth; or the puerperium (20 sources) Abnormal glucose level; Translations: [Abnormal glucose complicating ] Onset: 11-02-2024 10-26-2024 Episodic Comment on above: 3 hour GTT test 4 times daily diet controlled, [facility] US at 36 weeks. delivery by 40 Malposition; malpresentation (20 sources) Breech presentation; Translations: [Maternal care for breech presentation, not applicable or unspecified] Onset: 09-15-2024 04-20-2020 Episodic Medical examination/evaluation (2 sources) Encounter for general adult medical examination without abnormal findings; Translations: [Encounter for general adult medical examination without abnormal findings] Onset: 01-23-2017 Episodic Other complications of (20 sources) Supervision of high risk , unspecified, unspecified trimester; Translations: [Supervision of unspecified high-risk ] Onset: 07-20-2024 Episodic Other complications of (1 source) Supervision of with other poor reproductive or obstetric history, third trimester; Translations: [Supervision of with other poor reproductive or obstetric history, third trimester] Onset: 02-08-2025 Episodic Other complications of (2 sources) Supervision of high risk , unspecified, second trimester; Translations: [Supervision of high risk , unspecified, second trimester] Onset: 01-05-2025 Episodic Other connective tissue disease (1 source) Hypermobility syndrome; 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] Onset: 03-18-2017 Episodic Other female genital disorders (20 sources) Recurrent loss; 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] Onset: 01-05-2025 06-17-2024 Episodic Comment on above: on progesterone unti l 10-12 weeks Residual codes; unclassified (1 source) 38 weeks gestation of ; Translations: [38 weeks gestation of ] Onset: 02-08-2025 Episodic Residual codes; unclassified (1 source) 37 weeks gestation of ; Translations: [37 weeks gestation of ] Onset: 01-05-2025 Episodic Residual codes; unclassified (1 source) 36 weeks gestation of ; Translations: [36 weeks gestation of ] Onset: 12-29-2024 Episodic Residual codes; unclassified (1 source) 35 weeks gestation of ; Translations: [35 weeks gestation of ] Onset: 12-19-2024 Episodic Residual codes; unclassified (1 source) 32 weeks gestation of ; Translations: [32 weeks gestation of ] Onset: 11-25-2024 Episodic Residual codes; unclassified (1 source) 25 weeks gestation of ; Translations: [25 weeks gestation of ] Onset: 10-12-2024 Episodic Residual codes; unclassified (1 source) 24 weeks gestation of ; Translations: [24 weeks gestation of ] Onset: 09-30-2024 Episodic Residual codes; unclassified (1 source) 22 weeks gestation of ; Translations: [22 weeks gestation of ] Onset: 09-16-2024 Episodic Residual codes; unclassified (1 source) 13 weeks gestation of ; Translations: [13 weeks gestation of ] Onset: 07-20-2024 Episodic Residual codes; unclassified (1 source) 10 weeks gestation of ; Translations: [10 weeks gestation of ] Onset: 06-29-2024 Episodic Unclassified (20 sources) Abnormal coagulation profile; Translations: [Cancer cervix screening status] Onset: 01-19-2017 09-24-2023 Episodic Comment on above: pap obtained today. Unclassified (1 source) Menstrual Problem Onset: 04-23-2017 Unclassified (8 sources) Spontaneous rupture of membranes; Translations: [Spontaneous rupture of amniotic membranes] Results Test Name Value Interpretation Reference Range Facility Inital Evaluation (1) - PTon 05-09-2025 Inital Evaluation (1) - PT [facility] Physical [facility] [address] [place] [address] / REHABILITATION SERVICES INITIAL EVALUATION MR#: [id number] Acct: [id number] Name: CECY GALLEGOS Rep #: [id number] : 1995 30 From: Effie May Referring Dr.: Dr. Keshia Galvez DO Status: REG RCR Insurance: [employer] SELF PAY INSURANCE Patient's Visit Information Visit Information Visit Information: CECY GALLEGOS is a 30 year old F referred to Physical Therapy by Dr. Keshia Galvez, with a diagnosis of N81.9 Female genital prolapse, unspecified. Date of Evaluation: 05/09/25 Physical Therapist: Effie May Visit Plan Frequency: 1x/Week Duration: 4 Months Plan: Cecy would benefit from skilled PT intervention to address her concerns with pelvic pain and pressure. She has some pelvic floor tightness and mild cystocele/rectocele that may be contributing to her symptoms. We will incorporate manual therapy, strengthening and education in our sessions to help her get back to her previous level of functioning soon. Continue pelvic floor releases right side layer 2-3 especially. Check for right upslip, right low back tenderness and pain (also tender right piriformis). Add week 2 next visit. Evaluate breathing mechanics. Has she tried splinting or squatty potty? MFR to address diastasis. Baby 3 months old. 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 Subjective Subjective: She states each time she has a baby, everything gets heavier. Some leaking with running. She feels a heaviness when she exercises. Mild incontinence with a cough , sneeze. She crosses her legs to lessen leaking. Running, Yoga for exercise. At the end of the day, she feels heaviness as well. She feels some lower abdominal tightness and pressure. Some pelvic pain with moving around a lot. 2/10. Discomfort more than pain. Low back pain . She has 2 bulging discs. Sometimes bothers her with running. 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 Last baby born in January. 3 vaginal deliveries. First she had some tearing, the last delivery she had very mild tearing . She is still nursing. Baby is 3 months old. Her biggest goal is to be able to exercise without leakage. Pain Pelvic pain: Pain Intensity (Out of 10): 2 Pain Intensity Range: 2 Low back pain: Pain Intensity (Out of 10): 1 Pain Intensity Range: 2 Objective Objective: Diastasis Recti 2 finger widths above umbilicus, 3 finger widths at umbilicus, 1/2 finger width below umbilicus She gives consent for pelvic floor exam Mild , moderate pelvic floor tightness right side layer 2-3 no significant tenderness at introitus LAYCOCK 1/unable to hold contraction as hesitation for 2-3 seconds, /1/2 Cystocele 1, Rectocele 1 Right upslip, right rotation L3-L5 moderate right piriformis tenderness POPDI-6 4, CRAD-8 3, ROSALINA-6 4 Goals Goal 1:: Cecy will be able to go thru day to day activities including lifting her small children without feeling pelvic pain or pressure. Goal Time Frame: 8-12 Weeks Goal 2:: Cecy will be able to be able to cough or sneeze without leaking. Goal Time Frame: 8-12 Weeks Goal 3:: Cecy will be able to run for exercise without leaking. Goal Time Frame: 8-12 Weeks Goal 4:: Luiss diastasis recti will improve to less than a finger width as evidenced by greater stability and strength to handle day to day activities. Goal Time Frame: 6-8 Weeks Rehabilitation Potential Physical Therapy Diagnosis: Stress incontinence N39.3 Rehabilitation Potential: Good Anticipated Interventions Patient/Client Instruction: Educate patient on: Condition and Plan of Care For the Purpose of:: To improve muscle performance and motor function, To improve health and function and To improve self management Therapeutic Exercise to Include: Strength training, Relaxation training, Dynamic Lumbar Stabilization and Shivani Exercises For the Purpose of:: To improve muscle performance and motor function, To improve health and function and To improve self management Manual Therapy Techniques to Include: Trigger point massage, Mobilization and Soft tissue mobilization For the Purpose of:: To improve muscle performance and motor function, To improve health and function and To improve self management Text: Thank you for the opportunity to evaluate your patient. For Medicare and Medicare HMO plans, please review the plan of care and approve it. It will need to be FAXED BACK to us at [phone] for Medicare purposes. For Medicare only, by signing this I certify the plan of care. Please let me know if there are questions or concerns regarding this plan of care. Physician Signature: Date: _ 05/09/25 1446 (more content not included)... Normal [facility] Pre Press Proofer Office Visit Reporton 02-27-2025 Pre Press Proofer Office Visit Report [facility] [address] [place] [address], [address] [place] [address] OFFICE VISIT Date of Service: 02/27/25 MR#: [id number] Acct: [id number] Name: CECY GALLEGOS Rep #: [id number] : 1995 Provider: Dr. 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 Is patient in pain?: No Allergies banana Allergy (Mild, Verified 02/27/25 09:37) RASH Latex, Natural Rubber Allergy (Mild, Verified 02/27/25 09:37) Rash Medications ???Medication ???Instructions ???Recorded ???Confirmed ???Type vitamin#30 30 mg iron-10 1 cap PO DAILY 04/07/19 02/27/25 History mg iron-folic acid 1 mg-omg3 capsule levothyroxine 50 mcg tablet 50 mcg PO DAILY #90 tabs 12/06/24 02/27/25 Rx : Yes PFSH Medical History Gestational diabetes History of miscarriage Non-smoker Supervision of high-risk History of miscarriage, currently 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 Date Name GA/Weeks Outcome Route Bth Weight Gen Labor Lgth Anesthesia Del Locatn Provider FOB Unknown 03/2019 SAB spontaneous Unknown 07/2021 chemical Unknown 08/03/2023 miscarriage 6 spontaneous 04/29/20 River 39 live - full term 6# Male none [facility] Alexia hayden [place] 07/10/22 Annabelle Rouse 39 live - full term 7#11oz Female none [facility] Hay [place] 01/11/24 spontaneous SM 01/17/25 Homero 39 live - full term Male none [facility] KW Tayo Delivery Date: 04/29/20 Last Updated by: Su MULLINS Delivery Date: 07/10/22 Last Updated by: Su MULLINS IOL Delivery Date: 01/11/24 Last Updated by: GELY Boykin Delivery Date: 01/17/25 Last Updated by: Keira Chen RN See problem list for complications, and KW DREA [place] Depression Screen PHQ-2/9 PHQ-2 Over the last 2 weeks, how often have you been bothered by any of the following problems? 1. Little interest or pleasure in doing things: not at all 2. Feeling down, depressed, or hopeless: not at all Total score: 0 Post HPI Routine Follow-Up: Details: CECY GALLEGOS is a 29 year old who presents for her post visit. Infant Feeding: Breast Menses resumed: No [place] since delivery: No Emotional Support: Yes Last Pap:: 2023 Control Method: condoms. ROS Const Reports system reviewed and no additional complaints, except as documented GI Reports system reviewed and no additional complaints, except as documented, Denies bloating, Denies constipation, Denies nausea and Denies vomiting Reports system reviewed and no additional complaints, except as documented, Denie (more content not included)... Normal [facility] T4 Free Directon 02-27-2025 T4 FREE DIRECT 1.30 ng/dL Normal 0.76-1.46 [facility] Comment on above: Performed By: #### L 501.9520, L506.0400 ####[facility] [address] [place], [address] T4 freeOrdered By: Keshia Roger on 02-27-2025 Free T4 [Mass/Vol] 1.30 ng/dL 0.76-1.46 [facility] TSH DL <= 0.005 mIU/L QnOrde red By: Keshia Kana on 02-27-2025 TSH Qn 1.190 uIU/mL 0.300-4.200 [facility] Thyroid Stim Hormone (TSH)on 02-27-2025 TSH 1.190 uIU/mL Normal 0.300-4.200 [facility] Comment on above: Performed By: #### L 501.9520, L506.0400 ####[facility] [address] [place], [address] Bedside Glucoseon 01-18-2025 FINGERSTICK GLU 75 mg/dL Normal 74-106 [facility] Comment on above: Result Comment: SHELLEY GEMENT OF PATIENT CARE PER NURSING PROTOCOL Performed By: #### L 501.080 #### [facility] Laboratory [address] [place], [address] [facility] deOrdered By: Reshma Driscoll on 01-18-2025 Glucose [Mass/Vol] 75 mg/dL 74-106 [facility] Comment on above: MANAGEMENT OF PATIEN T CARE PER NURSING PROTOCOL Bedside Glucoseon 01-17-2025 FINGERSTICK GLU 108 mg/dL High 74-106 [facility] Comment on above: Result Comment: SHELLEY GEMENT OF PATIENT CARE PER NURSING PROTOCOL Performed By: #### L 501.080 #### [facility] Laboratory [address] [place], [address] FINGERSTICK GLU 92 mg/dL Normal 74-106 [facility] Comment on above: Result Comment: SHELLEY GEMENT OF PATIENT CARE PER NURSING PROTOCOL Performed By: #### L 501.080 #### [facility] Laboratory [address] [place], [address] Discharge Instructionon 07 Discharge Instruction [facility] Medical Records Department [address] [place] [address] Instructions for Home/Discharge Instructions 01/17/25 0230 MR#: [id number] Acct: [id number] Name: CECY GALLEGOS Rep #: [id number] : 1995 29 From: Reshma Driscoll CNM PCP: Farzaneh Meraz DO Status:ADM IN Discharge Instructions Diet Discharge Diet: No restrictions DC O2, CPAP, BIPAP needs Home O2 Discharge instructions: No Dressing / Incision Discharge Activity: Return to Normal Activity May resume sexual activity in: 6-8 weeks Dressing / Incision Call your doctor if you observe: Fever of 101 or Higher, Coldness, Increased Pain, Numbness or Tingling, Change in Color, Inability to urinate, Inability to have a bowel movement, Using more than 1 pad per hour, Shortness of breath, Dizziness, Fainting spells, Swelling in the ankles, Chest pain, Increased palpitations (irregular heartbeat), Calf discomfort and Uncontrolled pain Follow Up Care Please Follow Up With: Reshma Driscoll CNM When: Please call the office to schedule your follow up appointment in 6 weeks. If you had high blood pressure please call to schedule an appointment in 2 weeks. Test Results: Test results from this visit will be discussed in further detail at your follow-up appointment, if applicable. Discharge Plan Admission Admit Date/Time: 01/16/25 17:07 Attending Provider: Reshma Driscoll Primary Care Provider: Farzaneh Meraz Discharge Orders/Prescriptions Prescriptions: No Action PNV #[id number] 30 mg iron-10 mg iron-1 mg capsule 1 cap PO DAILY aspirin [Adult Aspirin Regimen] 81 mg tablet,delayed release (DR/EC) 81 mg PO DAILY (DME) Blood Glucose Test Strip See Rx Instructions .ROUTE .MEDSUPPLY Qty: 120 6RF Rx Instructions: Check blood sugars Fasting and 2 hours after breakfast, lunch, and dinner. (DME) blood-glucose meter Misc See Rx Instructions .ROUTE .MEDSUPPLY Qty: 1 0RF Rx Instructions: As directed (DME) lancets [Droplet Lancets] 30 gauge misc See Rx Instructions .ROUTE .MEDSUPPLY Qty: 200 6RF Rx Instructions: Check blood sugars fasting and 2 hours after breakfast, lunch, and supper. levothyroxine 50 mcg tablet 50 mcg PO DAILY Qty: 90 3RF Referrals / Follow Up: Farzaneh Meraz DO [Primary Care Provider] - 01/17/25 0230 Reshma Driscoll CNM CC: Farzaneh Meraz DO Signed Normal [facility] MR/OB.VAGDELIon 01-17-2025 MR/OB.VAGDELI [facility] Medical Records Department [address] [place] [address] OB Vaginal Delivery 01/17/25224 MR#: [id number] Acct: [id number] Name: CECY GALLEGOS Rep #: [id number] : 1995 29 From: Reshma Driscoll CNM PCP: Farzaneh Meraz DO Status:ADM IN Location: [id number] Assessment Plan (1) Vaginal delivery: COMMENT: chirag Valentin IAL (2) Positive GBS test: COMMENT: treat in labor (3) Gestational diabetes mellitus (GDM) affecting , antepartum: COMMENT: diet controlled, growth US at 36 weeks. delivery by 40 (4) Supervision of high-risk : QUALIFIERS: Trimester: second trimester Qualified Code(s): O09.92 - Supervision of high risk , unspecified, second trimester COMMENT: PRR , GERMAN 01/20/25, PC Angel Luis, Icard Tayo (5) : QUALIFIERS: Weeks of gestation: 38 weeks Qualified Code(s): Z3A.38 - 38 weeks gestation of COMMENT: NIPT low risk, carrier and ntd screen declined. anatomy reviewed. (6) History of recurrent miscarriages: COMMENT: on progesterone until 10-12 weeks (7) Chiari malformation type I: COMMENT: s/p neurosurgery consult. no regional anesthesia. 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 Vaginal Delivery Information Procedure Performed: Spontaneous Vaginal Delivery Surgeon/Practitioner: Reshma Driscoll Date of Procedure: 01/17/25 Pre-Procedure Diagnosis: see problem list Post-Procedure Diagnosis: same Type of anesthesia: None Estimated Blood Loss: 100 Time of Delivery: 02:03 Findings Description of procedure: Progressed well to 10cm dilated and made steady progress with effective maternal pushing. Delivered the head in FABIAN presentation. The head was delivered atraumatically and a loose nuchal cord was identified and was easily reduced over the 's head. The anterior and posterior shoulders delivered without complication followed by the rest of the infant and the infant was placed on the maternal abdomen. Delayed cord clamping was employed for approximately 3 minutes. Cord was clamped and cut and gentle traction was applied to the cord and the placenta delivered spontaneously. Immediately following, it was noted to be intact with a 3 vessel cord. Uterine bleeding stable. The perineum and vagina were inspected and noted to have a first degree laceration which was repaired with 3-0 Vicryl in the usual fashion. EBL was 100cc. Patient and infant tolerated delivery well. Apgars 7/9. Dr Perera notified of vaginal delivery and orders reviewed. Physician agrees with current plan of care. 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 Post Vaginal Deli Medications given after delivery: IV Pitocin Episiotomy Description: None Laceration: 1st degree Complication Complications: No Multi Select Codes Urinary/Genital Urinary/Genital CPT Codes: 50358 Vaginal Delivery [facility] 01/17/25 0229 Cosigner Signature (if applicable): CC: CARON Driscoll; Farzaneh Meraz DO Signed ADDENDUM by CARON Driscoll on 01/17/25 at 0230 Addendum 01/17/25 0230 Cosigner Signature (if applicable): cc: CARON Meraz DO * Signed Normal [facility] (ROM) Rupture Of Membraneson 01-16-2025 ROM Positive Abnormal Negative [facility] Comment on above: Result Comment: Amni otic fluid present indicates rupture of Membranes. RESULTS CALLED TO Jhon LEROY 01/16/25 Gerard Aviles. REPORT READ BACK BY SAME . Performed By: #### L 501.080 #### [facility] Laboratory [address] [place], [place], [id number] ([address] Absolute lymphocyte countOrd ered By: Reshma Driscoll on 01-16-2025 Lymphocytes Auto (Unsp spec) [#/Vol] 1.34 10*3/uL 0.83-4.51 [facility] Absolute neutrophil countOrd ered By: Reshma Driscoll on 01-16-2025 Neutrophils (Bld) [#/Vol] 5.9 10*3/uL 2.0-7.7 [facility] Automated lymphocyte count a s percentage of total leukocytesOrdered By: Reshma Driscoll on 01-16-2025 Lymphocytes/100 WBC Auto (Unsp spec) 16.2 % Low 19-41 [facility] Basophil percentageOrdered B y: Reshma Driscoll on 01-16-2025 Basophils/100 WBC (Bld) 0.4 % 0-1 [facility] Bedside Glucoseon 01-16-2025 FINGERSTICK GLU 74 mg/dL Normal 74-106 [facility] Comment on above: Result Comment: SHELLEY GEMENT OF PATIENT CARE PER NURSING PROTOCOL Performed By: #### L 501.080 #### [facility] Laboratory [address] [place], [place], [id number] ([address] FINGERSTICK GLU 78 mg/dL Normal 74-106 [facility] Comment on above: Result Comment: SHELLEY GEMENT OF PATIENT CARE PER NURSING PROTOCOL Performed By: #### L 501.080 ####[facility] [address] [place], [address] CBC W/Diff, Automatedon Absolute Lymph 1.34 X10 3/uL Normal 0.83-4.51 [facility] Comment on above: Performed By: #### L 100.0100, BTS ####[facility] [address] [place], [address] Absolute Neut 5.9 X10 3/uL Normal 2.0-7.7 [facility] Comment on above: Performed By: #### L 100.0100, BTS ####[facility] [address] [place], [address] Basophils/100 WBC (Bld) 0.4 % Normal 0-1 [facility] Comment on above: Performed By: #### L 100.0100, BTS ####[facility] [address] [place], [address] Eosinophils/100 WBC (Bld) 1.5 % Normal 0-5 [facility] Comment on above: Performed By: #### L 100.0100, BTS ####[facility] [address] [place], [address] Erythrocyte distribution width (RBC) [Ratio] 12.8 % Normal 11.6-14.6 [facility] Comment on above: Performed By: #### L 100.0100, BTS ####[facility] [address] [place], [address] Hematocrit (Bld) [Volume fraction] 37.5 % Normal 37-47 [facility] Comment on above: Performed By: #### L 100.0100, BTS ####[facility] [address] [place], [address] Hemoglobin (Bld) [Mass/Vol] 13.5 g/dL Normal 12.0-15.0 [facility] Comment on above: Performed By: #### L 100.0100, BTS ####[facility] [address] [place], [address] IG% 1.500 High 0.0-0.9 [facility] Comment on above: Result Comment: IG% - Immature Granulocytes (promyelocytes, myelocytes and metamyelocytes) > 1% indicates that a LEFT SHIFT is Present. Performed By: #### L 100.0100, BTS ####[facility] [address] [place], [address] Lymphocytes/100 WBC (Bld) 16.2 % Low 19-41 [facility] Comment on above: Performed By: #### L 100.0100, BTS ####[facility] [address] [place], [address] MCH (RBC) [Entitic mass] 32.0 pg Normal 27.0-32.0 [facility] Comment on above: Performed By: #### L 100.0100, BTS ####[facility] [address] [place], [address] MCHC (RBC) [Mass/Vol] 36.0 g/dL Normal 32-36 [facility] Comment on above: Performed By: #### L 100.0100, BTS ####[facility] [address] [place], [address] MCV (RBC) [Entitic vol] 88.9 fL Normal 81-99 [facility] Comment on above: Performed By: #### L 100.0100, BTS ####[facility] [address] [place], [address] Monocytes/100 WBC (Bld) 9.4 % Normal 0-10 [facility] Comment on above: Performed By: #### L 100.0100, BTS ####[facility] [address] [place], [address] Neutrophils/100 WBC (Bld) 71.0 % High 47-70 [facility] Comment on above: Performed By: #### L 100.0100, BTS ####[facility] [address] [place], [address] Nucleated RBC (Bld) [#/Vol] 0 10*3/uL Normal 0-5 [facility] Comment on above: Performed By: #### L 100.0100, BTS ####[facility] [address] [place], [address] Platelet mean volume (Bld) [Entitic vol] 10.0 fL Normal 6.2-12.0 [facility] Comment on above: Performed By: #### L 100.0100, BTS ####[facility] [address] [place], [address] Platelets (Bld) [#/Vol] 217 10*3/uL Normal 150-450 [facility] Comment on above: Performed By: #### L 100.0100, BTS ####[facility] [address] [place], [address] RBC (Bld) [#/Vol] 4.22 10*6/uL Normal 4.2-5.4 [facility] Comment on above: Performed By: #### L 100.0100, BTS ####[facility] [address] [place], [address] RDW SD 41.1 fl Normal 35.1-43.9 [facility] Comment on above: Performed By: #### L 100.0100, BTS ####[facility] [address] [place], [address] WBC (Bld) [#/Vol] 8.3 10*3/uL Normal 4.4-11.0 [facility] Comment on above: Performed By: #### L 100.0100, BTS ####[facility] [address] [place], [address] Eosinophil percentageOrdered By: Reshma Driscoll on 01-16-2025 Eosinophils/100 WBC (Bld) 1.5 % 0-5 [facility] Erythrocyte distribution wid th ratioOrdered By: Reshma Driscoll on 01-16-2025 Erythrocyte distribution width (RBC) [Ratio] 12.8 % 11.6-14.6 [facility] Erythrocyte distribution wid th standard deviationOrdered By: Reshma Driscoll on 01-16-2025 Erythrocyte distribution width (RBC) [Ratio] 41.1 fl 35.1-43.9 [facility] H AND P Exam - OB/GYNon 07 H&P Exam - LIVE AMMUNITION INSPECTOR [facility] Medical Records Department [address] [place] [address] H P Exam - LIVE AMMUNITION INSPECTOR 01/16/25 1714 MR#: [id number] Acct: [id number] Name: CECY GALLEGOS Rep #: [id number] : 1995 29 From: Reshma Driscoll CNM PCP: Farzaneh Meraz DO Status:ADM IN Location: [id number] HPI - General General Date of Admission: 01/16/25 Date of Service: 01/16/25 HPI Narrative CECY GALLEGOS, is a 29 F 38.6 who presents to unit for possible SROM. ROM came back positive and decision made for admission. 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 SAB (spontaneous ) Thyroiditis (spontaneous vaginal delivery) Thyroid disorder GBS (group B Streptococcus carrier), +RV culture, currently Thyroid disease affecting Supervision of high-risk Amenorrhea ASCUS of cervix with negative high risk HPV 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 Home Medications ???Medication ???Instructions ???Recorded ???Last Taken ???Type vitamin#30 30 mg iron-10 1 cap PO DAILY 04/07/19 01/16/25 12:00 History mg iron-folic acid 1 mg-omg3 capsule aspirin 81 mg tablet,delayed 81 mg PO DAILY 12/22/23 01/16/25 0 9:00 History release (Adult Aspirin Regimen) blood sugar diagnostic (Blood #120 ea 10/28/24 Unknown Rx Glucose Test strips) blood-glucose meter #1 ea 10/28/24 Unknown Rx lancets 30 gauge (Droplet Lancets) #200 ea 10/28/24 Unknown Rx levothyroxine 50 mcg tablet 50 mcg PO DAILY #90 tabs 12/06/24 01/16/25 07:00 Rx Allergy/AdvReac Type Severity Reaction Status Date / Time banana Allergy Mild RASH Verified 01/16/25 16:55 Latex, Natural Rubber Allergy Mild Rash Verified 01/16/25 16:55 Family History Father , BLOOD CLOT BLOOD CLOT Surgical History S/P dilation and curettage ( 01/11/24) H/O wisdom tooth extraction Social History (Updated 01/12/25 @ 08:35 by [...] 1-2 times per week duration: 15-30 minutes/day femi/congregation: [employer] seatbelt use: always do you feel safe at home: Yes additional social history: [place] History 7 Elective abortions Hx Para 2 [...] live - full term 6# Male none [facility] Alexia hayden [place] 07/10/22 Annabelle Rouse 39 live - full term 7#11oz Female none [facility] Hay [place] 01/11/24 spontaneous SM Delivery Date: 04/29/20 Last Updated by: Su MULLINS Delivery Date: 07/10/22 Last Updated by: Su MULLINS IOL Delivery Date: 01/11/24 Last Updated by: GELY Boyikn C Visit Details Expected Delivery Route/Plan Labor Preferences- CB/BF classes: [] labor support person: [] labor intervention preferences: [] pain management options preferred: [] cut cord/dad catch: [] : [] PP control planned: [] discussed possible routes of delivery and associated risks: [] special requests: [] Plans Covid status: [] Flu vaccine: [] Tdap vaccine: [] Rhogam: [] LARC form signed: [] Problem (more content not included)... Normal [facility] Hematocrit Auto (Bld) [Volum e fraction]Ordered By: Reshma Driscoll on 01-16-2025 Hematocrit (Bld) [Volume fraction] 37.5 % 37-47 [facility] Hemoglobin measurementOrdere d By: Reshma Driscoll on 01-16-2025 Hemoglobin (Bld) [Mass/Vol] 13.5 g/dL 12.0-15.0 [facility] Immature granulocytes/100 WB C Auto (Bld)Ordered By: Reshma Driscoll on 01-16-2025 Immature granulocytes/100 WBC (Bld) 1.500 % High 0.0-0.9 [facility] Comment on above: IG% - Immature Granu locytes (promyelocytes, myelocytes and metamyelocytes) > 1% indicates that a LEFT SHIFT is Present. MCV (mean corpuscular volume ) determinationOrdered By: Reshma Driscoll on 01-16-2025 MCV (RBC) [Entitic vol] 88.9 fL 81-99 [facility] Mean corpuscular hemoglobin (MCH) determinationOrdered By: Reshma Driscoll on 01-16-2025 MCH (RBC) [Entitic mass] 32.0 pg 27.0-32.0 [facility] Mean corpuscular hemoglobin concentration (MCHC) determinationOrdered By: Reshma Driscoll on 01-16-2025 MCHC (RBC) [Mass/Vol] 36.0 g/dL 32-36 [facility] Mean platelet volume determi nationOrdered By: Reshma Driscoll on 01-16-2025 Platelet mean volume (Bld) [Entitic vol] 10.0 fL 6.2-12.0 [facility] Monocyte percentageOrdered B y: Reshma Driscoll on 01-16-2025 Monocytes/100 WBC (Bld) 9.4 % 0-10 [facility] Neutrophil percentageOrdered By: Reshma Driscoll on 01-16-2025 Neutrophils/100 WBC (Bld) 71.0 % High 47-70 [facility] Nucleated red blood cell per centageOrdered By: Reshma Driscoll on 01-16-2025 Nucleated RBC/100 WBC (Bld) [Ratio] 0 % 0-5 [facility] Platelet countOrdered By: Gene Driscoll on 01-16-2025 Platelets (Bld) [#/Vol] 217 10*3/uL 150-450 [facility] RBC Auto (Bld) [#/Vol]Ordere d By: Reshma Driscoll on 01-16-2025 RBC (Bld) [#/Vol] 4.22 10*6/uL 4.2-5.4 [facility] Syphilis Antibodieson 2024 Syphilis Abs Non-Reactive Normal Nonreactive [facility] Comment on above: Performed By: #### L 501.080 #### [facility] Laboratory [address] [place], [place], [id number] Type AND Screenon 01-16-2025 Ab SCREEN GEL Negative Normal [facility] Comment on above: Order Comment: Labor Performed By: #### L 100.0100, BTS ####[facility] [address] [place], [place], [id number] White blood cell (WBC) count Ordered By: Reshma Driscoll on 01-16-2025 WBC (Bld) [#/Vol] 8.3 10*3/uL 4.4-11.0 [facility] Laboratory - Chemistry and C hemistry - challengeOrdered By: Pam Koo on 01-12-2025 Glucose Ql (U) Negative [facility] Laboratory - UrinalysisOrder ed By: Pam Koo on 01-12-2025 Protein Ql (U) Negative [facility] Pre Press Proofer Office Visit Reporton 01-12-2025 Pre Press Proofer Office Visit Report [facility] [address], [address] [place] [address] OFFICE VISIT Date of Service: 01/12/25 MR#: [id number] Acct: [id number] Name: CECY GALLEGOS Rep #: [id number] : 1995 Provider: Dr. 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 Date Name GA/Weeks Outcome Route Bth Weight Gen Labor Lgth Anesthesia Del Locatn Provider FOB Unknown 03/2019 SAB spontaneous Unknown 07/2021 chemical Unknown 08/03/2023 miscarriage 6 spontaneous 04/29/20 [place] 39 live - full term 6# Male none [facility] Alexia hayden [place] 07/10/22 Annabelle Rouse 39 live - full term 7#11oz Female none [facility] Guido [place] 01/11/24 spontaneous SM Delivery Date: 04/29/20 Last Updated by: Su MULLINS Delivery Date: 07/10/22 Last Updated by: Su MULLINS IOL Delivery Date: 01/11/24 Last Updated by: GLEY Boykin C HPI 39 wk ob Details: CECY [...] Problem li (more content not included)... Normal [facility] Laboratory - Chemistry and C hemistry - challengeOrdered By: Pam Koo on 01-05-2025 Glucose Ql (U) Negative [facility] Laboratory - UrinalysisOrder ed By: Pam Koo on 01-05-2025 Protein Ql (U) Negative [facility] Pre Press Proofer Office Visit Reporton 01-05-2025 Pre Press Proofer Office Visit Report [facility] [address], [address] [place] [address] OFFICE VISIT Date of Service: 01/05/25 MR#: [id number] Acct: [id number] Name: CECY GALLEGOS Rep #: [id number] : 1995 Provider: Dr. Pam hayden MD Age/Sex: 29/F Location: [facility] Status: Signed Intake Vital Signs 12/09/24 10:07 12/19/24 14:13 12/29/24 15:36 01/05/25 11:35 01/05/25 11:37 Height 5 ft 3 in 5 ft 3 in 5 ft 3 in 5 ft 3 in 5 ft 3 in Weight: 159 lb 6 oz BMI 28.2 BP 132/86 H Intake Visit Reasons: 38 WK ob *only SM/LC Otr 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 Driver Required: No Is patient in pain?: No [...] Regimen) blood sugar diagnostic (Blood #120 10/28/24 01/05/25 Rx Glucose Test strips) blood-glucose meter #1 10/28/24 01/05/25 Rx lancets 30 gauge (Droplet Lancets) #200 10/28/24 01/05/25 Rx metformin 500 mg tablet [...] 1-2 times per week duration: 15-30 minutes/day femi/congregation: [employer] seatbelt use: always do you feel safe at home: Yes 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 Normal [facility] Rule out Beta Strep (Grp. B) on 01-02-2025 POLO Streptococcus agalac tiae (B) Amount Growth Growth Streptococcus agalactiae (B): REACTION Ampicillin Islt LUL <=0.25 cefTRIAXone Islt LUL <=0.12 S Clindamycin Islt LUL >=1 R Clindamycin.induced Susc Islt NEG Linezolid Islt LUL <=2 S Vancomycin Islt LUL 0.5 S Normal [facility] Comment on above: Performed By: #### L 501.080 #### [facility] Laboratory [address] [place], [place], [id number] Laboratory - Chemistry and C hemistry - challengeOrdered By: Reshma Driscoll on 12-29-2024 Glucose Ql (U) Negative [facility] Laboratory - UrinalysisOrder ed By: Reshma Driscoll on 12-29-2024 Protein Ql (U) Negative [facility] Pre Press Proofer Office Visit Reporton 12-29-2024 Pre Press Proofer Office Visit Report [facility], [address] [place] [address] OFFICE VISIT Date of Service: 12/29/24 MR#: [id number] Acct: [id number] Name: CECY GALLEGOS Rep #: [id number] : 1995 Provider: CARON Wilson ams Age/Sex: 29/F Location: [facility] Status: Signed Intake Vital Signs 11/16/24 09:19 12/19/24 14:13 12/29/24 15:32 12/29/24 15:36 Height 5 ft 3 in 5 ft 3 in 5 ft 3 in 5 ft 3 in Weight: 157 lb 8 oz BMI 27.8 BP 121/69 H Intake Visit Reasons: 37 wk ob Chief Complaint: 37 Week OB Otr 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 Driver Required: No Is patient in pain?: No [...] 1-2 times per week duration: 15-30 minutes/day femi/congregation: [employer] seatbelt use: always do you feel safe at home: Yes 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 Normal [facility] Screening beta-hemolytic Str eptococcus cultureOrdered By: Reshma Driscoll on 12-29-2024 Beta-hemolytic Streptococcus culture Streptococcus agalactiae (B) Abnormal [facility] OB Limited With Biometricson 12-23-2024 OB Limited With Biometrics [facility] [address] [place] [address] OB Limited With Biometrics MR#: [id number] Acct: [id number] Name: CECY GALLEGOS Rep #: [id number] : 1995 F 29 From: Lenard jorgensen MD PCP: Farzaneh Meraz DO Status: REG CLI Study: OB Limited With Biometrics Date of Exam: 12/23 Exam# [id number] Ordering Dr: Justina Guido CNM PROCEDURE: OB [...] 36 weeks and 1 day. Reading Location: [id number] CC: CARON Guido; Farzaneh Meraz DO Hot Car Operator: Signed Normal [facility] Laboratory - Chemistry and C hemistry - challengeOrdered By: Keshia Roger on 12-19-2024 Glucose Ql (U) Negative [facility] Laboratory - UrinalysisOrder ed By: Keshia Kana on 12-19-2024 Protein Ql (U) Negative [facility] Pre Press Proofer Office Visit Reporton 12-19-2024 Pre Press Proofer Office Visit Report [facility] [address], [address] [place] [address] OFFICE VISIT Date of Service: 12/19/24 MR#: [id number] Acct: [id number] Name: CECY GALLEGOS Rep #: [id number] : 1995 Provider: Dr. 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 Date Name GA/Weeks Outcome Route Bth Weight Gen Labor Lgth Anesthesia Del Locatn Provider FOB Unknown 03/2019 SAB spontaneous Unknown 07/2021 chemical Unknown 08/03/2023 miscarriage 6 spontaneous 04/29/20 [place] 39 live - full term 6# Male none [facility] Alexia hayden [place] 07/10/22 Annabelle Rouse 39 live - full term 7#11oz Female none [facility] Hay [place] 01/11/24 spontaneous SM Delivery Date: [...] special requests: (more content not included)... Normal [facility] T4 Free Directon 12-19-2024 T4 FREE DIRECT 0.80 ng/dL Normal 0.76-1.46 [facility] Comment on above: Performed By: #### L 501.080 #### [facility] Laboratory [address] [place], [place], [id number] T4 freeOrdered By: Moisse Mazariegos on 12-19-2024 Free T4 [Mass/Vol] 0.80 ng/dL 0.76-1.46 [facility] TSH DL <= 0.005 mIU/L QnOrde red By: Moises Mazariegos on 12-19-2024 TSH Qn 1.400 uIU/mL 0.300-4.200 [facility] Thyroid Stim Hormone (TSH)on 12-19-2024 TSH 1.400 uIU/mL Normal 0.300-4.200 [facility] Comment on above: Performed By: #### L 501.080 #### [facility] Laboratory [address] [place], [place], [id number] Laboratory - Chemistry and C hemistry - challengeOrdered By: Justina Guido on 12-09-2024 Glucose Ql (U) Negative [facility] Laboratory - UrinalysisOrder ed By: Justina Guido on 12-09-2024 Protein Ql (U) Negative [facility] Pre Press Proofer Office Visit Reporton 12-09-2024 Pre Press Proofer Office Visit Report [facility] [address], [address] [place] [address] OFFICE VISIT Date of Service: 12/09/24 MR#: [id number] Acct: [id number] Name: CECY GALLEGOS Rep #: [id number] : 1995 Provider: CARON gomez Age/Sex: 29/F Location: [facility] Status: Signed Intake Vital Signs 06/29/24 10:20 11/25/24 10:04 12/09/24 10:07 12/09/24 10:07 Height 5 ft 3 in 5 ft 3 in 5 ft 3 in 5 ft 3 in Weight: 152 lb BMI 26.9 BP 113/70 Intake Visit Reasons: 34 WK OB Otr 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 Driver Required: No Is patient in pain?: No [...] 1-2 times per week duration: 15-30 minutes/day femi/congregation: [employer] seatbelt use: always do you feel safe at home: Yes 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 Normal [facility] Laboratory - Chemistry and C hemistry - challengeOrdered By: Pam Koo on 11-25-2024 Glucose Ql (U) Negative [facility] Laboratory - UrinalysisOrder ed By: Pam Koo on 11-25-2024 Protein Ql (U) Trace [facility] Pre Press Proofer Office Visit Reporton 11-25-2024 Pre Press Proofer Office Visit Report [facility] [address], [address] [place] [address] OFFICE VISIT Date of Service: 11/25/24 MR#: [id number] Acct: [id number] Name: CECY GALLEGOS Rep #: [id number] : 1995 Provider: Dr. 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 Normal [facility] Laboratory - Chemistry and C hemistry - challengeOrdered By: Pam Koo on 11-16-2024 Glucose Ql (U) Negative [facility] Laboratory - UrinalysisOrder ed By: Pam Koo on 11-16-2024 Protein Ql (U) Negative [facility] Pre Press Proofer Office Visit Reporton 11-16-2024 Pre Press Proofer Office Visit Report [facility] [address], [address] [place] [address] OFFICE VISIT Date of Service: 11/16/24 MR#: [id number] Acct: [id number] Name: CECY GALLEGOS Rep #: [id number] : 1995 Provider: Dr. Pam hayden MD Age/Sex: 29/F Location: [facility] Status: Signed Intake Vital Signs 06/29/24 10:20 11/04/24 15:31 11/16/24 09:11 11/16/24 09:19 Height 5 ft 3 in 5 ft 3 in 5 ft 3 in 5 ft 3 in Weight: 148 lb 2 oz BMI 26.2 BP 117/72 Intake Visit Reasons: 30 WK OB Otr 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 Driver Required: No Is patient in pain?: No [...] Last Menstrual Period: 04/15/24 : No PFSH [facility] Medical History History of miscarriage History of [...] 1-2 times per week duration: 15-30 minutes/day femi/congregation: [employer] seatbelt use: always do you feel safe at home: Yes 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 Normal [facility] Endocrinology Visit Reporton 11-04-2024 Endocrinology Visit Report [facility] [address] [facility] [address] [place] [address] OFFICE VISIT Date of Service: 11/04/24 MR#: [id number] Acct: [id number] Name: CECY GALLEGOS Rep #: [id number] : 1995 Provider: Mirela Amaya Age/Sex: 29/F Location[place] [facility] Status: Signed Intake Vital Signs 11/06/23 15:37 10/26/24 10:28 11/04/24 15:31 Height 5 ft 3 in 5 ft 3 in 5 ft 3 in Weight: 150 lb BMI 26.5 BP 107/70 Blood Pressure Location Lt brachial Position Sitting Pulse 83 Pulse Source Monitor Pulse Oximetry (%) 97 Oxygen Delivery Method room air Intake Visit Reasons: 1 Y FU Chief Complaint: Thyroid, GDM Otr 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 Driver Required: No Accompanied by: Self Is patient [...] 11/04/24 Rx blood sugar diagnostic (Blood #120 10/28/24 11/04/24 Rx Glucose Test strips) blood-glucose [...] 1-2 times per week duration: 15-30 minutes/day femi/congregation: [employer] seatbelt use: always do you feel safe at home: Yes 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 Normal [facility] Gestational GTT 3HR 100gon 0 10-28-2024 3HR GTT- GEST. High [facility] Comment on above: Order Comment: [...] Col: 10/28/24 1130 Performed By: #### L 501.080 #### [facility] Laboratory [address] [place], [address] Glucose tolerance 3 hours ge stational panelOrdered By: Pam Koo on 10-28-2024 Gestational Glucose Tolerance Test See comment [facility] Comment on above: FASTING 98 [...] tolerance 3 hours gestational panel See comment [facility] Comment on above: FASTING 98 [...] Auto (Unsp spec) [#/Vol] 1.16 10*3/uL 0.83-4.51 [facility] Absolute neutrophil countOrd ered By: Justina Guido on 10-26-2024 Neutrophils (Bld) [#/Vol] 4.8 10*3/uL 2.0-7.7 [facility] Automated lymphocyte count a s percentage of total leukocytesOrdered By: Justina Guido on 10-26-2024 Lymphocytes/100 WBC Auto (Unsp spec) 16.9 % Low 19-41 [facility] Basophil percentageOrdered B y: Justina Guido on 10-26-2024 Basophils/100 WBC (Bld) 0.7 % 0-1 [facility] CBC W/Diff, Automatedon 10-11 Absolute Lymph 1.16 X10 3/uL Normal 0.83-4.51 [facility] Comment on above: Performed By: #### L 900.0098 #### [facility] Laboratory [address] [place], [address] Absolute Neut 4.8 X10 3/uL Normal 2.0-7.7 [facility] Comment on above: Performed By: #### L [id number] #### [facility] Laboratory [address] [place], [address] Basophils/100 WBC (Bld) 0.7 % Normal 0-1 [facility] Comment on above: Performed By: #### L 900.0098 #### [facility] Laboratory [address] [place], [address] Eosinophils/100 WBC (Bld) 5.1 % High 0-5 [facility] Comment on above: Performed By: #### L 900.0098 #### [facility] Laboratory [address] [place], [address] Erythrocyte distribution width (RBC) [Ratio] 12.1 % Normal 11.6-14.6 [facility] Comment on above: Performed By: #### L 900.0098 #### [facility] Laboratory [address] [place], [address] Hematocrit (Bld) [Volume fraction] 33.7 % Low 37-47 [facility] Comment on above: Performed By: #### L 900.0098 #### [facility] Laboratory [address] [place], [address] Hemoglobin (Bld) [Mass/Vol] 11.7 g/dL Low 12.0-15.0 [facility] Comment on above: Performed By: #### L 900.0098 #### [facility] Laboratory [address] [place], [address] IG% 1.200 High 0.0-0.9 [facility] Comment on above: Result Comment: IG% - Immature Granulocytes (promyelocytes, myelocytes and metamyelocytes) > 1% indicates that a LEFT SHIFT is Present. Performed By: #### L 900.0098 #### [facility] Laboratory [address] [place], [address] Lymphocytes/100 WBC (Bld) 16.9 % Low 19-41 [facility] Comment on above: Performed By: #### L [id number] #### [facility] [address] [place], [address] MCH (RBC) [Entitic mass] 31.2 pg Normal 27.0-32.0 [facility] Comment on above: Performed By: #### L 900.0098 #### [facility] [address] [place], [address] MCHC (RBC) [Mass/Vol] 34.7 g/dL Normal 32-36 [facility] Comment on above: Performed By: #### L 900.0098 #### [facility] [address] [place], [address] MCV (RBC) [Entitic vol] 89.9 fL Normal 81-99 [facility] Comment on above: Performed By: #### L [id number] #### [facility] [address] [place], [address] Monocytes/100 WBC (Bld) 6.1 % Normal 0-10 [facility] Comment on above: Performed By: #### L 900.0098 #### [facility] [address] [place], [address] Neutrophils/100 WBC (Bld) 70.0 % Normal 47-70 [facility] Comment on above: Performed By: #### L [id number] #### [facility] [address] [place], [address] Nucleated RBC (Bld) [#/Vol] 0 10*3/uL Normal 0-5 [facility] Comment on above: Performed By: #### L 900.0098 #### [facility] [address] [place], [address] Platelet mean volume (Bld) [Entitic vol] 9.3 fL Normal 6.2-12.0 [facility] Comment on above: Performed By: #### L 900.0098 #### [facility] Laboratory [address] [place], [address] Platelets (Bld) [#/Vol] 232 10*3/uL Normal 150-450 [facility] Comment on above: Performed By: #### L [id number] #### [facility] Laboratory [address] [place], [address] RBC (Bld) [#/Vol] 3.75 10*6/uL Low 4.2-5.4 [facility] Comment on above: Performed By: #### L [id number] #### [facility] Laboratory [address] [place], [address] RDW SD 39.3 fl Normal 35.1-43.9 [facility] Comment on above: Performed By: #### L [id number] #### [facility] Laboratory [address] [place], [address] WBC (Bld) [#/Vol] 6.9 10*3/uL Normal 4.4-11.0 [facility] Comment on above: Performed By: #### L 900.0098 #### [facility] [address] [place], [address] Eosinophil percentageOrdered By: Justina Guido on 10-26-2024 Eosinophils/100 WBC (Bld) 5.1 % High 0-5 [facility] Erythrocyte distribution wid th (RBC) [Ratio]Ordered By: Justina Guido on 10-26-2024 Erythrocyte distribution width (RBC) [Entitic vol] 39.3 fL 35.1-43.9 [facility] Erythrocyte distribution wid th ratioOrdered By: Justina Guido on 10-26-2024 Erythrocyte distribution width (RBC) [Ratio] 12.1 % 11.6-14.6 [facility] Erythrocyte distribution wid th standard deviationOrdered By: Justina Guido on 10-26-2024 Erythrocyte distribution width (RBC) [Ratio] 39.3 fl 35.1-43.9 [facility] Glucose Challenge Gest 1H 50 reddy 10-26-2024 GLU GEST 50g 1H 152 mg/dL High 70-140 [facility] Comment on above: Performed By: #### L 501.080 #### [facility] [address] [place], [address] Glucose measurement at 2 álvaro rs post-dose gestational glucose tolerance testOrdered By: Pam Koo on 10-26-2024 Glucose [Mass/Vol] 152 mg/dL High 70-140 [facility] HIVon 10-26-2024 HIV Non-Reactive Normal Nonreactive [facility] Comment on above: Result Comment: Non- Reactive Reactive Repeatedly reactive samples must be confirmed according to CDC recommended confirmatory algorithms. The subresults for either HIVAG or AHIV can be used as an aid in the selection of the confirmation algorithm for reactive samples. Send out specimens with Reactive results to [facility] for confirmation. Order the HIV antibody detection and differentiation: #[id number] Performed By: #### L 900.0098 #### [facility] [address] [place], [address] Hematocrit Auto (Bld) [Volum e fraction]Ordered By: Justina Guido on 10-26-2024 Hematocrit (Bld) [Volume fraction] 33.7 % Low 37-47 [facility] Hemoglobin measurementOrdere d By: Justina Guido on 10-26-2024 Hemoglobin (Bld) [Mass/Vol] 11.7 g/dL Low 12.0-15.0 [facility] Immature granulocytes/100 WB C Auto (Bld)Ordered By: Justina Guido on 10-26-2024 Immature granulocytes/100 WBC (Bld) 1.200 % High 0.0-0.9 [facility] Comment on above: IG% - Immature Granu locytes (promyelocytes, myelocytes and metamyelocytes) > 1% indicates that a LEFT SHIFT is Present. Laboratory - Chemistry and C hemistry - challengeOrdered By: Pam Koo on 10-26-2024 Glucose Ql (U) Negative [facility] Laboratory - UrinalysisOrder ed By: Pam Koo on 10-26-2024 Protein Ql (U) Negative [facility] Lymphocytes Auto (Unsp spec) [#/Vol]Ordered By: Justina Guido on 10-26-2024 Lymphocytes (Bld) [#/Vol] 1.16 10*3/uL 0.83-4.51 [facility] Lymphocytes/100 WBC Auto (Un sp spec)Ordered By: Justina Guido on 10-26-2024 Lymphocytes/100 WBC (Bld) 16.9 % Low 19-41 [facility] MCV (mean corpuscular volume ) determinationOrdered By: Justina Guido on 10-26-2024 MCV (RBC) [Entitic vol] 89.9 fL 81-99 [facility] Mean corpuscular hemoglobin (MCH) determinationOrdered By: Justina Guido on 10-26-2024 MCH (RBC) [Entitic mass] 31.2 pg 27.0-32.0 [facility] Mean corpuscular hemoglobin concentration (MCHC) determinationOrdered By: Justina Guido on 10-26-2024 MCHC (RBC) [Mass/Vol] 34.7 g/dL 32-36 [facility] Mean platelet volume determi nationOrdered By: Justina Guido on 10-26-2024 Platelet mean volume (Bld) [Entitic vol] 9.3 fL 6.2-12.0 [facility] Monocyte percentageOrdered B y: Justina Guido on 10-26-2024 Monocytes/100 WBC (Bld) 6.1 % 0-10 [facility] Neutrophil percentageOrdered By: Justina Guido on 10-26-2024 Neutrophils/100 WBC (Bld) 70.0 % 47-70 [facility] No Panel InformationOrdered By: Pam Koo on 10-26-2024 HIV (1&2) Antibody Non-Reactive Nonreactive [facility] Comment on above: Non-ReactiveReactive Repeatedly reactive samples must be confirmed according to CDC recommended confirmatory algorithms. The subresults for either HIVAG or AHIV can be used as an aid in the selection of the confirmation algorithm for reactive samples.Send out specimens with Reactive results to [facility] for confirmation.Order the HIV antibody detection and differentiation: #[id number] Nucleated red blood cell per centageOrdered By: Justina Guido on 10-26-2024 Nucleated RBC/100 WBC (Bld) [Ratio] 0 % 0-5 [facility] Pre Press Proofer Office Visit Reporton 10-26-2024 Pre Press Proofer Office Visit Report [facility] [address], [address] [place] [address] OFFICE VISIT Date of Service: 10/26/24 MR#: [id number] Acct: [id number] Name: CECY GALLEGOS Rep #: [id number] : 1995 Provider: Dr. 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 Normal [facility] Platelet countOrdered By: Suzan Guido on 10-26-2024 Platelets (Bld) [#/Vol] 232 10*3/uL 150-450 [facility] RBC Auto (Bld) [#/Vol]Ordere d By: Justina Guido on 10-26-2024 RBC (Bld) [#/Vol] 3.75 10*6/uL Low 4.2-5.4 [facility] Syphilis Antibodieson 2024 Syphilis Abs Non-Reactive Normal Nonreactive [facility] Comment on above: Performed By: #### L 900.0098 #### [facility] Laboratory [address] [place], [address] T. pallidum abOrdered By: Katherine Koo on 10-26-2024 Syphilis Total Antibody Non-Reactive Nonreactive [facility] White blood cell (WBC) count Ordered By: Justina Guido on 10-26-2024 WBC (Bld) [#/Vol] 6.9 10*3/uL 4.4-11.0 [facility] Laboratory - Chemistry and C hemistry - challengeOrdered By: Pam Koo on 10-12-2024 Glucose Ql (U) Negative [facility] Laboratory - UrinalysisOrder ed By: Pam Koo on 10-12-2024 Protein Ql (U) Negative [facility] Pre Press Proofer Office Visit Reporton 10-12-2024 Pre Press Proofer Office Visit Report [facility]'s [address], [address] [place] [address] OFFICE VISIT Date of Service: 10/12/24 MR#: [id number] Acct: [id number] Name: CECY GALLEGOS Rep #: [id number] : 1995 Provider: Dr. Pam hayden MD Age/Sex: 29/F Location: [facility] Status: Signed Intake Vital Signs 06/29/24 10:20 09/30/24 10:59 10/12/24 10:56 10/12/24 10:59 Height 5 ft 3 in 5 ft 3 in 5 ft 3 in 5 ft 3 in Weight: 144 lb 6 oz BMI 25.5 BP 117/77 Intake Visit Reasons: 26 WK OB Otr 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 Driver Required: No Is patient in pain?: No [...] Zika virus screening: Negative : No PFSH [facility] Medical History History of miscarriage History of [...] 1-2 times per week duration: 15-30 minutes/day femi/congregation: [employer] seatbelt use: always do you feel safe at home: Yes 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 Normal [facility] Laboratory - Chemistry and C hemistry - challengeOrdered By: Justina Guido on 09-30-2024 Glucose Ql (U) Negative [facility] Laboratory - UrinalysisOrder ed By: Justina Guido on 09-30-2024 Protein Ql (U) Negative [facility] Pre Press Proofer Office Visit Reporton 09-30-2024 Pre Press Proofer Office Visit Report [facility]'s [address], [address] [place] [address] OFFICE VISIT Date of Service: 09/30/24 MR#: [id number] Acct: [id number] Name: CECY GALLEGOS Rep #: [id number] : 1995 Provider: CARON gomez Age/Sex: 29/F Location: [facility] Status: Signed Intake Vital Signs 06/29/24 10:20 09/16/24 11:23 09/30/24 10:59 09/30/24 10:59 Height 5 ft 3 in 5 ft 3 in 5 ft 3 in 5 ft 3 in Weight: 140 lb BMI 24.7 BP 108/69 Intake Visit Reasons: HEARTBEAT CK Otr 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 Driver Required: No Is patient in pain?: No [...] 1-2 times per week duration: 15-30 minutes/day femi/congregation: [employer] seatbelt use: always do you feel safe at home: Yes 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 Normal [facility] Laboratory - Chemistry and C hemistry - challengeOrdered By: Reshma Driscoll on 09-16-2024 Glucose Ql (U) Negative [facility] Laboratory - UrinalysisOrder ed By: Reshma Driscoll on 09-16-2024 Protein Ql (U) Negative [facility] Pre Press Proofer Office Visit Reporton 09-16-2024 Pre Press Proofer Office Visit Report [facility]'s [address], [address] [place] [address] OFFICE VISIT Date of Service: 09/16/24 MR#: [id number] Acct: [id number] Name: CECY GALLEGOS Rep #: [id number] : 1995 Provider: CARON Wilson ams Age/Sex: 29/F Location: [facility] Status: Signed Intake Vital Signs [...] Last Menstrual Period: 04/15/24 : No PFSH PFS Medical History History [...] 1-2 times per week duration: 15-30 minutes/day femi/congregation: [employer] seatbelt use: always do you feel safe at home: Yes 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 Normal [facility] Miscellaneous procedureOrder ed By: Reshma Driscoll on 09-05-2024 Miscellaneous Test Comment SEE SCANNED REPORT [facility] NATERAon 09-05-2024 MARIOURA SEE SCANNED REPORT Normal [facility] Comment on above: Performed By: #### L 900.0098 #### [facility] Laboratory [address] [facility] [address] [place], [place], [address] OB Anatomy w/ Transvaginalon 09-02-2024 OB Anatomy w/ Transvaginal [facility] [address] [place], [place] [id number] OB Anatomy w/ Transvaginal MR#: [id number] Acct: [id number] Name: CECY GALLEGSO Rep #: [id number] : 1995 F 29 From: Lenard jorgensen MD PCP: Farzaneh Meraz DO Status: REG CLI Study: OB Anatomy w/ Transvaginal Date of Exam: 09/02 Exam# [id number] Ordering Dr: Caroline Stern SOFTWARE SUPPORT TECHNICIAN SOFTWARE SUPPORT TECHNICIAN -C PROCEDURE: OB ANATOMY W/ TRANSVAGINAL REASON [...] 4 mm choroid plexus cyst. Reading Location: [facility] CC: CONNIE Stern; Farzaneh Meraz DO Hot Car Operator: Signed Normal [facility] Thyroid Peroxidase ABon 02-0 THYR PEROX AB 128 IU/mL High 0-34 [facility] Comment on above: Result Comment: Perf ormed at: - [facility] [address] [id number] Security Assurance Analyst: Nicolas Maldonado PhD, Phone: [phone] Performed By: #### L 900.0098 #### [facility] Laboratory [address], [place], [id number] Direct serum free thyroxine (FT4) measurementOrdered By: Caroline Stern on 08-17-2024 Free T4 [Mass/Vol] 0.94 ng/dL 0.76-1.46 [facility] Laboratory - Chemistry and C hemistry - challengeOrdered By: Caroline Stern on 08-17-2024 Glucose Ql (U) Negative [facility] Laboratory - UrinalysisOrder ed By: Caroline Stern on 08-17-2024 Protein Ql (U) Negative [facility] Pre Press Proofer Office Visit Reporton 08-17-2024 Pre Press Proofer Office Visit Report [facility]'s [address], [address] [place] [address] OFFICE VISIT Date of Service: 08/17/24 MR#: [id number] Acct: [id number] Name: CECY GALLEGOS Rep #: [id number] : 1995 Provider: CONNIE kimbrough Age/Sex: 29/F Location: [facility] Status: Signed Intake Vital Signs 06/29/24 10:20 08/01/24 13:32 08/17/24 14:58 Height 5 ft 3 in 5 ft 3 in 5 ft 3 in Weight: 133 lb 4 oz BMI 23.6 BP 110/62 Intake Visit Reasons: 18 WK OB Chief Complaint: 18 Week OB Otr 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 Driver Required: No Is patient in pain?: No [...] past year?: No PFSH PFS Medical History (Updated 08/17/24 @ 15:25 by Caroline Stern SOFTWARE SUPPORT TECHNICIAN, SOFTWARE SUPPORT TECHNICIAN-C) History of miscarriage History of miscarriage, currently [...] 1-2 times per week duration: 15-30 minutes/day femi/congregation: [employer] seatbelt use: always do you feel safe at home: Yes 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 Normal [facility] Serum or plasma thyroid stim ulating hormone (TSH) measurement (units/volume)Ordered By: Caroline Stern on 08-17-2024 TSH Qn 0.806 uIU/mL 0.358-3.740 [facility] Serum or plasma thyroperoxid ase antibody assay (units/volume)Ordered By: Caroline Stern on 08-17-2024 TPO Ab Qn 128 [IU]/mL High 0-34 [facility] Comment on above: Performed at: [facility] [id number] [place], [place] [id number] Director: Nicolas Maldonado PhD, Phone: [phone] T4 Free Directon 08-17-2024 T4 FREE DIRECT 0.94 ng/dL Normal 0.76-1.46 [facility] Comment on above: Performed By: #### L 900.0098 #### [facility] Laboratory [address] [place], [place], [address] TPO Ab QnOrdered By: Caroline rios on 08-17-2024 Thyroid Peroxidase Antibodies 128 IU/mL High 0-34 [facility] Comment on above: Performed at: [id number] [place], [place] [id number] Director: Nicolas Maldonado PhD, Phone: [phone] TSH QnOrdered By: Caroline kimbrough on 08-17-2024 Thyroid Stimulating Hormone (TSH) 0.806 uIU/mL 0.358-3.740 [facility] Thyroid Stim Hormone (TSH)on 08-17-2024 TSH 0.806 uIU/mL Normal 0.358-3.740 [facility] Comment on above: Performed By: #### L 900.0098 #### [facility] Laboratory [address] [place], [place], [id number] Laboratory - Chemistry and C hemistry - challengeon 08-01-2024 Glucose Ql (U) Negative [facility] Laboratory - Urinalysison Protein Ql (U) Negative [facility] Pre Press Proofer Office Visit Reporton 08-01-2024 Pre Press Proofer Office Visit Report [address], [address] [place] [address] OFFICE VISIT Date of Service: 08/01/24 MR#: [id number] Acct: [id number] Name: CECY GALLEGOS #: [id number] : 1995 Provider: CARON Wilson ams Age/Sex: 29/F Location: [facility] Status: Signed Intake Vital Signs 06/29/24 10:20 07/20/24 15:37 08/01/24 13:30 08/01/24 13:32 Height 5 ft 3 in 5 ft 3 in 5 ft 3 in 5 ft 3 in Weight: 131 lb BMI 23.2 BP 129/80 H Intake Visit Reasons: HEARTBEAT CK Otr 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 Driver Required: No Is patient in pain?: No [...] 1-2 times per week duration: 15-30 minutes/day femi/congregation: [employer] seatbelt use: always do you feel safe at home: Yes 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 Date Name GA/Weeks Outcome Route Bth Weight Gen Labor Lgth Anesthesia Del Locatn Provider FOB Unknown 03/2019 SAB spontaneous Unknown 07/2021 chemical Unknown 08/03/2023 miscarriage 6 spontaneous 04/29/20 [place] 39 live - full term 6# Male none [facility] Alexia hayden [place] 07/10/22 Annabelle Rouse 39 live - full term 7#11oz Female none [facility] Hay [place] 01/11/24 spontaneous SM Delivery Date: 04/29/20 Last [...] Tdap v (more content not included)... Normal [facility] Laboratory - Chemistry and C hemistry - challengeon 07-20-2024 Glucose Ql (U) Negative [facility] Laboratory - Urinalysison Protein Ql (U) Negative [facility] Pre Press Proofer Office Visit Reporton 07-20-2024 Pre Press Proofer Office Visit Report [facility]'s [address], [facility] [address] [place] [address] OFFICE VISIT Date of Service: 07/20/24 MR#: [id number] Acct: [id number] Name: CECY GALLEGOS Rep #: [id number] : 1995 Provider: CONNIE kimbrough Age/Sex: 29/F Location: [facility] Status: Signed Intake Vital Signs [...] 1-2 times per week duration: 15-30 minutes/day femi/congregation: [employer] seatbelt use: always do you feel safe at home: Yes 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 Date Name GA/Weeks Outcome Route Bth Weight Gen Labor Lgth Anesthesia Del Locatn Provider FOB Unknown 03/2019 SAB spontaneous Unknown 07/2021 chemical Unknown 08/03/2023 miscarriage 6 spontaneous 10/18/20 [place] 39 live - full term 6# Male none [facility] Alexia hayden [place] 07/10/22 Annabelle Rouse 39 live - full term 7#11oz Female none [facility] Hay [place] 01/11/24 spontaneous SM Delivery Date: [...] for th (more content not included)... Normal [facility] Progress Noteon 07-01-2024 Candy Attendant Authentication Interface Message Text Maternal Medicine Consult [...] mcg of levothyroxine and is monitored by [facility] Moises Mazariegos MD. She has no symptoms [...] Vag-Spont None N BRYSON Name: Annabelle 3 SAB 07/2021 Comments: chemical 2 Term 04/29/20 [id number] [...] A1 Muscular Dystrophy No Cystic Fibrosis No [place] Chorea No Intellectual Disability/Autism No Metabolic Disorder [...] 0d with an GERMAN of 01/20/2025. 2. [place] rump length measurement are consistent with supplied dating. 3. Anatomic detail is extremely (more content not included)... Normal [facility] Laboratory - Chemistry and C hemistry - challengeon 06-29-2024 Glucose Ql (U) Negative [facility] Laboratory - Urinalysison Protein Ql (U) Negative [facility] Pre Press Proofer Office Visit Reporton 06-29-2024 Pre Press Proofer Office Visit Report [facility]'s [address], [address] [place] [address] OFFICE VISIT Date of Service: 06/29/24 MR#: [id number] Acct: [id number] Name: CECY GALLEGOS Rep #: [id number] : 1995 Provider: Dr. 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 Date Name GA/Weeks Outcome Route Bth Weight Gen Labor Lgth Anesthesia Del Locatn Provider FOB Unknown 03/2019 SAB spontaneous Unknown 07/2021 chemical Unknown 08/03/2023 miscarriage 6 spontaneous 04/29/20 [place] 39 live - full term 6# Male none [facility] Alexia hayden [place] 07/10/22 Annabelle Rouse 39 live - full term 7#11oz Female none [facility] Hay [place] 01/11/24 spontaneous SM Delivery Date: 04/29/20 Last Updated by: Su MULLINS Delivery Date: 07/10/22 Last Updated by: Su MULILNS IOL Delivery Date: 01/11/24 Last Updated by: GELY Boykin C HPI heartbeat check per Details: CECY [...] reviewed an (more content not included)... Normal [facility] Chlamydia/GC RORY aptimaon CHLAMY,NUC ACID Negative Normal Negative [facility] Comment on above: Performed By: #### L 7000.1800, M100.2200 ####[facility] [id number] [place], [address] GC BY NUC ACID Negative Normal Negative [facility] Comment on above: Result Comment: Perf ormed at: = - [facility] [id number] Security Assurance Analyst: Isis Aranda MD, Phone: [phone] Performed By: #### L 7000.1800, M100.220 ####[facility] [id number] [place], [address] Thyroid Antibodieson 024 TG AB < 1.0 Normal 0.0-0.9 [facility] Comment on above: Result Comment: Thyr oglobulin Antibody measured by [employer] It should be noted that the presence of thyroglobulin antibodies may not be pathogenic nor diagnostic, especially at very low levels. The assay bench tool maker has found that four percent of individuals without evidence of thyroid disease or autoimmunity will have positive TgAb levels up to 4 IU/mL. Performed at: [facility] [address] [id number] Security Assurance Analyst: Nicolas Maldonado PhD, Phone: [phone] Performed By: #### L 6550.6720 #### [facility] Laboratory [address] [place], [address] THYR PEROX AB 197 IU/mL High 0-34 [facility] Comment on above: Performed By: #### L 3300.6750 #### [facility] Laboratory [address] [place], [address] Urine Cultureon 06-18-2024 URC Culture exhibits no growth. Normal [facility] Comment on above: Performed By: #### L 7000.1800, M100.2200 ####[facility] [address] [place], [address] Absolute neutrophil countOrd ered By: Justina Guido on 06-17-2024 Neutrophils (Bld) [#/Vol] 4.8 10*3/uL 2.0-7.7 [facility] Basophil percentageOrdered B y: Justina Guido on 06-17-2024 Basophils/100 WBC (Bld) 0.6 % 0-1 [facility] C. trachomatis rRNA RORY+prob e Ql (Unsp spec)Ordered By: Justina Guido on 06-17-2024 Chlamydia DNA (RORY) Negative Negative [facility] CBC W/Diff, Automatedon 12-0 Absolute Lymph 1.73 X10 3/uL Normal 0.83-4.51 [facility] Comment on above: Performed By: #### L 506.0400, BTS, L3890.6100, L100.0100, L3890.6300, L509.4005, L509.8000, L3890.6005, L501.9520 #### [facility] Laboratory [address] [place], [address] Absolute Neut 4.8 X10 3/uL Normal 2.0-7.7 [facility] Comment on above: Performed By: #### L 506.0400, BTS, L3890.6100, L100.0100, L3890.6300, L509.4005, L509.8000, L3890.6005, L501.9520 #### [facility] Laboratory [address] [place], [address] Basophils/100 WBC (Bld) 0.6 % Normal 0-1 [facility] Comment on above: Performed By: #### L 506.0400, BTS, L3890.6100, L100.0100, L3890.6300, L509.4005, L509.8000, L3890.6005, L501.9520 #### [facility] Laboratory [address] [place], [address] Eosinophils/100 WBC (Bld) 1.2 % Normal 0-5 [facility] Comment on above: Performed By: #### L 506.0400, BTS, L3890.6100, L100.0100, L3890.6300, L509.4005, L509.8000, L3890.6005, L501.9520 #### [facility] Laboratory [address] [place], [address] Erythrocyte distribution width (RBC) [Ratio] 11.8 % Normal 11.6-14.6 [facility] Comment on above: Performed By: #### L 506.0400, BTS, L3890.6100, L100.0100, L3890.6300, L509.4005, L509.8000, L3890.6005, L501.9520 #### [facility] Laboratory [address] [place], [address] Hematocrit (Bld) [Volume fraction] 37.2 % Normal 37-47 [facility] Comment on above: Performed By: #### L 506.0400, BTS, L3890.6100, L100.0100, L3890.6300, L509.4005, L509.8000, L3890.6005, L501.9520 #### [facility] Laboratory [address] [place], [address] Hemoglobin (Bld) [Mass/Vol] 13.1 g/dL Normal 12.0-15.0 [facility] Comment on above: Performed By: #### L 506.0400, BTS, L3890.6100, L100.0100, L3890.6300, L509.4005, L509.8000, L3890.6005, L501.9520 #### [facility] Laboratory [address] [place], [address] IG% 0.300 Normal 0.0-0.9 [facility] Comment on above: Result Comment: IG% - Immature Granulocytes (promyelocytes, myelocytes and metamyelocytes) > 1% indicates that a LEFT SHIFT is Present. Performed By: #### L 506.0400, BTS, L3890.6100, L100.0100, L3890.6300, L509.4005, L509.8000, L3890.6005, L501.9520 #### [facility] [address] [place], [address] Lymphocytes/100 WBC (Bld) 24.0 % Normal 19-41 [facility] Comment on above: Performed By: #### L 506.0400, BTS, L3890.6100, L100.0100, L3890.6300, L509.4005, L509.8000, L3890.6005, L501.9520 #### [facility] [address] [place], [address] MCH (RBC) [Entitic mass] 30.3 pg Normal 27.0-32.0 [facility] Comment on above: Performed By: #### L 506.0400, BTS, L3890.6100, L100.0100, L3890.6300, L509.4005, L509.8000, L3890.6005, L501.9520 #### [facility] [address] [place], [address] MCHC (RBC) [Mass/Vol] 35.2 g/dL Normal 32-36 [facility] Comment on above: Performed By: #### L 506.0400, BTS, L3890.6100, L100.0100, L3890.6300, L509.4005, L509.8000, L3890.6005, L501.9520 #### [facility] [address] [place], [address] MCV (RBC) [Entitic vol] 86.1 fL Normal 81-99 [facility] Comment on above: Performed By: #### L 506.0400, BTS, L3890.6100, L100.0100, L3890.6300, L509.4005, L509.8000, L3890.6005, L501.9520 #### [facility] [address] [place], [address] Monocytes/100 WBC (Bld) 7.6 % Normal 0-10 [facility] Comment on above: Performed By: #### L 506.0400, BTS, L3890.6100, L100.0100, L3890.6300, L509.4005, L509.8000, L3890.6005, L501.9520 #### [facility] [address] [place], [address] Neutrophils/100 WBC (Bld) 66.3 % Normal 47-70 [facility] Comment on above: Performed By: #### L 506.0400, BTS, L3890.6100, L100.0100, L3890.6300, L509.4005, L509.8000, L3890.6005, L501.9520 #### [facility] [address] [place], [address] Nucleated RBC (Bld) [#/Vol] 0 10*3/uL Normal 0-5 [facility] Comment on above: Performed By: #### L 506.0400, BTS, L3890.6100, L100.0100, L3890.6300, L509.4005, L509.8000, L3890.6005, L501.9520 #### [facility] [address] [place], [address] Platelet mean volume (Bld) [Entitic vol] 9.2 fL Normal 6.2-12.0 [facility] Comment on above: Performed By: #### L 506.0400, BTS, L3890.6100, L100.0100, L3890.6300, L509.4005, L509.8000, L3890.6005, L501.9520 #### [facility] [address] [place], [address] Platelets (Bld) [#/Vol] 308 10*3/uL Normal 150-450 [facility] Comment on above: Performed By: #### L 506.0400, BTS, L3890.6100, L100.0100, L3890.6300, L509.4005, L509.8000, L3890.6005, L501.9520 #### [facility] [address] [place], [address] RBC (Bld) [#/Vol] 4.32 10*6/uL Normal 4.2-5.4 [facility] Comment on above: Performed By: #### L 506.0400, BTS, L3890.6100, L100.0100, L3890.6300, L509.4005, L509.8000, L3890.6005, L501.9520 #### [facility] [address] [place], [address] RDW SD 37.0 fl Normal 35.1-43.9 [facility] Comment on above: Performed By: #### L 506.0400, BTS, L3890.6100, L100.0100, L3890.6300, L509.4005, L509.8000, L3890.6005, L501.9520 #### [facility] [address] [place], [place], [id number] WBC (Bld) [#/Vol] 7.2 10*3/uL Normal 4.4-11.0 [facility] Comment on above: Performed By: #### L 506.0400, BTS, L3890.6100, L100.0100, L3890.6300, L509.4005, L509.8000, L3890.6005, L501.9520 #### [facility] [address] [place], [address] Direct serum free thyroxine (FT4) measurementOrdered By: Justina Guido on 06-17-2024 Free T4 [Mass/Vol] 1.12 ng/dL 0.76-1.46 [facility] Eosinophil percentageOrdered By: Justina Guido on 06-17-2024 Eosinophils/100 WBC (Bld) 1.2 % 0-5 [facility] Erythrocyte distribution wid th ratioOrdered By: Justina Guido on 06-17-2024 Erythrocyte distribution width (RBC) [Ratio] 11.8 % 11.6-14.6 [facility] Erythrocyte distribution wid th standard deviationOrdered By: Justina Guido on 06-17-2024 Erythrocyte distribution width (RBC) [Entitic vol] 37.0 fL 35.1-43.9 [facility] HIV - WCHon 06-17-2024 HIV Non-Reactive Normal Nonreactive [facility] Comment on above: Order Comment: Reaso n for Exam: Performed By: #### L 506.0400, BTS, L3890.6100, L100.0100, L3890.6300, L509.4005, L509.8000, L3890.6005, L501.9520 ####[facility] [address] [place], [place], [id number] HIV 1+2 Ab+HIV1 p24 Ag IA Ql Ordered By: Justina Guido on 06-17-2024 HIV (1&2) Antibody Non-Reactive Nonreactive [facility] Hematocrit Auto (Bld) [Volum e fraction]Ordered By: Justina Guido on 06-17-2024 Hematocrit (Bld) [Volume fraction] 37.2 % 37-47 [facility] Hemoglobin measurementOrdere d By: Justina Guido on 06-17-2024 Hemoglobin (Bld) [Mass/Vol] 13.1 g/dL 12.0-15.0 [facility] Hepatitis B Surface Antigeno n 06-17-2024 HEP B Surf Ag Non-Reactive Normal Nonreactive [facility] Comment on above: Order Comment: Reaso n for Exam: Performed By: #### L 506.0400, BTS, L3890.6100, L100.0100, L3890.6300, L509.4005, L509.8000, L3890.6005, L501.9520 ####[facility] [id number] [place], [address] Hepatitis B surface antigen detectionOrdered By: Justina Guido on 06-17-2024 Hepatitis B Surface Antigen Non-Reactive Nonreactive [facility] Hepatitis C Antibodyon 06-17 Hepatitis C AB Non-Reactive Normal [facility] Comment on above: Order Comment: Reaso n for Exam: Result Comment: Non Reactive: < 0.8 Equivocal: >/= 0.8 to < 1.0 Reactive: >/= 1.0 The [facility] requires that a reactive/equivocal HCV antibody result be sent out for confirmation. HCV Quant by PCR testing. Performed By: #### L 506.0400, BTS, L3890.6100, L100.0100, L3890.6300, L509.4005, L509.8000, L3890.6005, L501.9520 ####[facility] [id number] [place], [address] Hepatitis C virus antibody a ssayOrdered By: Justina Guido on 06-17-2024 Hepatitis C Antibody Non-Reactive Nonreactive [facility] Comment on above: Non Reactive: < 0.8 Equivocal: >/= 0.8 to < 1.0 Reactive: >/= 1.0The CDC requires that a reactive/equivocal HCV antibody result be sent out for confirmation. HCV Quant by PCR testing. Immature granulocytes/100 WB C Auto (Bld)Ordered By: Justina Guido on 06-17-2024 Immature granulocytes/100 WBC (Bld) 0.300 % 0.0-0.9 [facility] Comment on above: IG% - Immature Granu locytes (promyelocytes, myelocytes and metamyelocytes) > 1% indicates that a LEFT SHIFT is Present. L509.8000on 06-17-2024 Syphilis Abs Non-Reactive Normal [facility] Comment on above: Order Comment: Reaso n for Exam: Performed By: #### L 506.0400, BTS, L3890.6100, L100.0100, L3890.6300, L509.4005, L509.8000, L3890.6005, L501.9520 ####[facility] [id number] [place], [place], [address] Lymphocytes Auto (Unsp spec) [#/Vol]Ordered By: Justina Guido on 06-17-2024 Lymphocytes (Bld) [#/Vol] 1.73 10*3/uL 0.83-4.51 [facility] Lymphocytes/100 WBC Auto (Un sp spec)Ordered By: Justina Guido on 06-17-2024 Lymphocytes/100 WBC (Bld) 24.0 % 19-41 [facility] MCV (mean corpuscular volume ) determinationOrdered By: Justina Guido on 06-17-2024 MCV (RBC) [Entitic vol] 86.1 fL 81-99 [facility] Mean corpuscular hemoglobin (MCH) determinationOrdered By: Justina Guido on 06-17-2024 MCH (RBC) [Entitic mass] 30.3 pg 27.0-32.0 [facility] Mean corpuscular hemoglobin concentration (MCHC) determinationOrdered By: Justina Guido on 06-17-2024 MCHC (RBC) [Mass/Vol] 35.2 g/dL 32-36 [facility] Mean platelet volume determi nationOrdered By: Justina Guido on 06-17-2024 Platelet mean volume (Bld) [Entitic vol] 9.2 fL 6.2-12.0 [facility] Monocyte percentageOrdered B y: Justina Guido on 06-17-2024 Monocytes/100 WBC (Bld) 7.6 % 0-10 [facility] Neisseria gonorrhoeae nuclei c acid detection by amplified probe techniqueOrdered By: Justina Hay on 06-17-2024 N. gonorrhoeae DNA RORY+probe Ql (Unsp spec) Negative Negative [facility] Comment on above: Performed at: =[address] [id number] Director: Isis Aranda MD, Phone: [phone] Neutrophil percentageOrdered By: Justina Guido on 06-17-2024 Neutrophils/100 WBC (Bld) 66.3 % 47-70 [facility] Nucleated red blood cell per centageOrdered By: Justina Guido on 06-17-2024 Nucleated RBC/100 WBC (Bld) [Ratio] 0 % 0-5 [facility] Pre Press Proofer Office Visit Reporton 06-17-2024 Pre Press Proofer Office Visit Report [facility] [address], [address] [place] [address] OFFICE VISIT Date of Service: 06/17/24 MR#: [id number] Acct: [id number] Name: CECY GALLEGOS Rep #: [id number] : 1995 Provider: CARON gomez Age/Sex: 29/F Location: [facility] Status: Signed Intake Vital Signs 01/29/24 10:17 06/17/24 08:47 Height 5 ft 3 in 5 ft 3 in Weight: 128 lb 4 oz BMI 22.7 BP 127/84 H Intake Visit Reasons: New OB, LMP 04/15, GERMAN 01/20/25 Otr 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 [employer] Required: No Is patient in pain?: No [...] 1-2 times per week duration: 15-30 minutes/day femi/congregation: [employer] seatbelt use: always do you feel safe at home: Yes 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 Normal [facility] Platelet countOrdered By: Suzan Guido on 06-17-2024 Platelets (Bld) [#/Vol] 308 10*3/uL 150-450 [facility] RBC Auto (Bld) [#/Vol]Ordere d By: Justina Guido on 06-17-2024 RBC (Bld) [#/Vol] 4.32 10*6/uL 4.2-5.4 [facility] Rubella IgGon 06-17-2024 Rubella IgG Reactive Normal Nonreactive [facility] Comment on above: Order Comment: Reaso n for Exam: Result Comment: Anti body Results Interpretation of Immune Status Non Reactive Presumed Non-Immune Equivocal Equivocal Reactive Presumed Immune Performed By: #### L 506.0400, BTS, L3890.6100, L100.0100, L3890.6300, L509.4005, L509.8000, L3890.6005, L501.9520 ####[facility] [address] [place], [place], [id number] Rubella immune status IgGOrd ered By: Justina Guido on 06-17-2024 Rubella IgG Antibody Reactive Nonreactive [facility] Comment on above: Antibody Results Int erpretation of Immune Status Non Reactive Presumed Non-Immune Equivocal Equivocal Reactive Presumed Immune T4 Free Directon 06-17-2024 T4 FREE DIRECT 1.12 ng/dL Normal 0.76-1.46 [facility] Comment on above: Performed By: #### L 506.0400, BTS, L3890.6100, L100.0100, L3890.6300, L509.4005, L509.8000, L3890.6005, L501.9520 #### [facility] [address] [place], [place], [id number] TPO Ab QnOrdered By: Justina Guido on 06-17-2024 Thyroid Peroxidase Antibodies 197 IU/mL High 0-34 [facility] TSH QnOrdered By: Justina trotter on 06-17-2024 Thyroid Stimulating Hormone (TSH) 1.420 uIU/mL 0.358-3.740 [facility] Thyroglobulin Ab serumOrdere d By: Justina Guido on 06-17-2024 Thyroglobulin Antibody < 1.0 IU/mL 0.0-0.9 [facility] Comment on above: Thyroglobulin Antibo dy measured by Chidi CoulterMethodologyIt should be noted that the presence of thyroglobulinantibodies may not be pathogenic nor diagnostic, especiallyat very low levels. The assay bench tool maker has found thatfour percent of individuals without evidence of thyroiddisease or autoimmunity will have positive TgAb levels upto 4 IU/mL.Performed at: - [facility] [id number] Director: Nicolas Maldonado PhD, Phone: [phone] Thyroid Stim Hormone (TSH)on 06-17-2024 TSH 1.420 uIU/mL Normal 0.358-3.740 [facility] Comment on above: Performed By: #### L 506.0400, BTS, L3890.6100, L100.0100, L3890.6300, L509.4005, L509.8000, L3890.6005, L501.9520 #### [facility] [address] [place], [address] Treponema sp Ab Ql (S)Ordere d By: Justina Guido on 06-17-2024 Syphilis Total Antibody Non-Reactive [facility] Type AND Screenon 06-17-2024 ABO and Rh group Nom (Bld) Blood group A Rh(D) positive Normal [facility] Comment on above: Order Comment: PN Performed By: #### L 506.0400, BTS, L3890.6100, L100.0100, L3890.6300, L509.4005, L509.8000, L3890.6005, L501.9520 ####[facility] [id number] [place], [address] Urine cultureOrdered By: Katie Guido on 06-17-2024 Bacteria identified Cx Nom (U) Culture exhibits no growth. [facility] White blood cell (WBC) count Ordered By: Justina Guido on 06-17-2024 WBC (Bld) [#/Vol] 7.2 10*3/uL 4.4-11.0 [facility] HCG ( test) QlOrder ed By: Justina Guido on 05-25-2024 Human Chorionic Gonadotropin, Quant 81226 mIU/mL High <4 [facility] Comment on above: hCG levels with Gest ational AgeGestational Age hCG mIU/mL (IU/L)0.2 - 1 week 5 - 501-2 weeks 50 - 5002-3 weeks 100 - 70756-5 weeks 500 - 670259-7 weeks 1000 - 885645-8 weeks 56004 - 100,0006-8 weeks 45628 - 200,0002-3 months 17692 - 100,000 hCG Titer Quant., Serumon HCG QUANT. 76288 mIU/mL High 1-3 [facility] Comment on above: Result Comment: hCG levels with Gestational Age Gestational Age hCG mIU/mL (IU/L) 0.2 - 1 week 5 - 50 1-2 weeks 50 - 500 2-3 weeks 100 - 5000 3-4 weeks 500 - 72434 4-5 weeks 1000 - 83822 5-6 weeks 35155 - 100,000 6-8 weeks 81999 - 200,000 2-3 months 77393 - 100,000 Performed By: #### L 501.080 #### [facility] [address] [place], [address] HCG ( test) QlOrder ed By: Justina Guido on 05-23-2024 Human Chorionic Gonadotropin, Quant 6957 mIU/mL High <4 [facility] Comment on above: hCG levels with Gest ational AgeGestational Age hCG mIU/mL (IU/L)0.2 - 1 week 5 - 501-2 weeks 50 - 5002-3 weeks 100 - 71195-8 weeks 500 - 267565-5 weeks 1000 - 083392-2 weeks 81530 - 100,0006-8 weeks 91405 - 200,0002-3 months 08958 - 100,000 Cervical or vaginal specimen microscopic examination by liquid based cytology (reportOrdered By: Justina Guido on 09-25-2023 Cytology report Cyto stain.thin prep Doc (Cvx/Vag) Comment . [facility] Comment on above: Criteria not met, HP V Genotype not performed.Performed at: - [address] [id number] Director: Isis Aranda MD, Phone: [phone] at: =[facility] [id number] Director: Isis Aranda MD, Phone: [phone] Cervical or vagninal specime n microscopic examination by cytology stain (reported asOrdered By: Justina Guido on 09-25-2023 Cytology report Cyto stain Doc (Cvx/Vag) Comment . [facility] Comment on above: The Pap [...] DNA Probe+sig amp Ql (Cvx) Negative Negative [facility] Comment on above: This nucleic acid am plification test detects fourteen high- risk HPV types (16,18,31,33,35,39,45,51,52,56,58,59,66,68)without differentiation. Laboratory - CytologyOrdered By: Justina Guido on 09-25-2023 Leather Stitcher Cyto stain Nom (Cvx/Vag) [ID] Comment . [facility] Comment on above: Felicia Thompson, [employer] hnologist (ASCP) Laboratory - Miscellaneous t estsOrdered By: Justina Guido on 09-25-2023 Service comment (Unsp spec) [Interp] . . [facility] Thin prep Papanicolaou smear with manual screeningOrdered By: Justina Guido on 09-25-2023 Thin prep Papanicolaou smear with manual screening Comment . [facility] Comment on above: NEGATIVE FOR INTRAEP ITHELIAL LESION OR MALIGNANCY. This liquid based Th inPrep(R) pap test was screened withthe use of an image guided system. No Panel InformationOrdered By: Justina Guido on 09-21-2023 Free Triiodothyronine (T3) pg/dL 2.8 pg/mL 2.18-3.98 [facility] Serum or plasma thyroid stim ulating hormone (TSH) measurement (units/volume)Ordered By: Justina Guido on 09-21-2023 TSH Qn 2.17 uIU/mL 0.358-3.74 [facility] Thin prep Papanicolaou smear with manual screeningOrdered By: Justina Guido on 09-21-2023 Thin prep Papanicolaou smear with manual screening 1.01 ng/dL 0.76-1.46 [facility] Serum or plasma choriogonado tropin detectionOrdered By: Caroline Stern on 08-17-2023 HCG ( test) Ql < 1 mIU/mL <4 [facility] Comment on above: hCG levels with Gest ational AgeGestational Age hCG mIU/mL (IU/L)0.2 - 1 week 5 - 501-2 weeks 50 - 5002-3 weeks 100 - 53534-1 weeks 500 - 287796-5 weeks 1000 - 616807-1 weeks 47551 - 100,0006-8 weeks 69816 - 200,0002-3 months 15073 - 100,000 Serum or plasma choriogonado tropin detectionOrdered By: Caroline Stern on 08-03-2023 HCG ( test) Ql 31 mIU/mL <4 [facility] Comment on above: hCG levels with Gest ational AgeGestational Age hCG mIU/mL (IU/L)0.2 - 1 week 5 - 501-2 weeks 50 - 5002-3 weeks 100 - 04540-2 weeks 500 - 988275-7 weeks 1000 - 248348-9 weeks 62597 - 100,0006-8 weeks 41645 - 200,0002-3 months 57463 - 100,000 Serum or plasma choriogonado tropin detectionOrdered By: Caroline Stern on 07-29-2023 HCG ( test) Ql 216 mIU/mL <4 [facility] Comment on above: hCG levels with Gest ational AgeGestational Age hCG mIU/mL (IU/L)0.2 - 1 week 5 - 501-2 weeks 50 - 5002-3 weeks 100 - 17337-1 weeks 500 - 430202-2 weeks 1000 - 726527-4 weeks 72375 - 100,0006-8 weeks 36824 - 200,0002-3 months 83606 - 100,000 Serum or plasma choriogonado tropin detectionOrdered By: Caroline Stern on 07-27-2023 HCG ( test) Ql 165 mIU/mL <4 [facility] Comment on above: hCG levels with Gest ational AgeGestational Age hCG mIU/mL (IU/L)0.2 - 1 week 5 - 501-2 weeks 50 - 5002-3 weeks 100 - 35717-2 weeks 500 - 728211-1 weeks 1000 - 634919-7 weeks 86622 - 100,0006-8 weeks 48422 - 200,0002-3 months 53419 - 100,000 Laboratory - Chemistry and C hemistry - challengeOrdered By: Moises Mazariegos on 05-25-2023 Free T4 [Mass/Vol] 0.87 ng/dL 0.76-1.46 [facility] No Panel InformationOrdered By: Moises Mazariegos on 05-25-2023 Thyroid Stimulating Hormone (TSH) 1.36 uIU/mL 0.358-3.74 [facility] Basophil percentageOrdered B y: Justina Guido on 10-24-2022 Chloride [Moles/Vol] 108 mmol/L 98-107 [facility] Cholesterol [Mass/Vol] 152 mg/dL <200 [facility] Comment on above: <200 mg/dL Desirable 200-240 mg/dL Borderline >240 mg/dL High Risk Glucose [Mass/Vol] 95 mg/dL 74-106 [facility] Potassium [Moles/Vol] 3.7 mmol/L 3.5-5.1 [facility] Sodium [Moles/Vol] 139 mmol/L 136-145 [facility] Triglyceride [Mass/Vol] 37 mg/dL <199 [facility] Comment on above: The drugs N-Acetylcy steine and Metamizole may falsely depress this assay.Serum Triglycerides Reference Interval Normal <150 mg/dL Borderline high 150 - 199 mg/dL High 200 - 499 mg/dL Very High > or = 500 mg/dL Laboratory - Chemistry and C hemistry - challengeOrdered By: Justina Guido on 10-24-2022 CO2 [Moles/Vol] 28.0 mmol/L 21.0-32.0 [facility] Free T4 [Mass/Vol] 1.06 ng/dL 0.76-1.46 [facility] Urea nitrogen/Creatinine [Mass ratio] 15.5 mg/mg 10-20 [facility] No Panel InformationOrdered By: Justina Guido on 10-24-2022 Estimated GFR (MDRD) Amer 139 mL/min >60 [facility] Comment on above: GFR Calc Estimated GFR (MDRD) Non-Af Amer 115 mL/min >60 [facility] Comment on above: Non- GFR Calc Thyroid Stimulating Hormone (TSH) 0.08 uIU/mL 0.358-3.74 [facility] Serum or plasma calcium ramiro urement (mass/volume)Ordered By: Justina Guido on 10-24-2022 Calcium [Mass/Vol] 8.7 mg/dL 8.5-10.1 [facility] Serum or plasma cholesterol in HDL measurement (mass/volume)Ordered By: Justina Guido on 10-24-2022 Cholesterol in HDL [Mass/Vol] 44 mg/dL >40 [facility] Comment on above: The drugs N-Acetylcy steine and Metamizole may falsely depress this assay. Reference Range HDL <40 mg/dL Low HDL Cholesterol HDL >or= 60 mg/dL High HDL Cholesterol Serum or plasma cholesterol in VLDL measurement (mass/volume)Ordered By: Justina Guido on 10-24-2022 Cholesterol in VLDL [Mass/Vol] 7 mg/dL 5-40 [facility] Serum or plasma creatinine m easurement (mass/volume)Ordered By: Justina Guido on 10-24-2022 Creatinine [Mass/Vol] 0.64 mg/dL 0.55-1.02 [facility] Comment on above: The validity of the calculated GFR & GFRAA in patients over 70 years has not been determined. Clinical correlation is essential. Serum or plasma low density lipoprotein (LDL) cholesterol measurement (mass/volume)Ordered By: Justina Guido on 10-24-2022 Cholesterol in LDL [Mass/Vol] 101 mg/dL 0-130 [facility] Serum or plasma urea nitroge n measurement (mass/volume)Ordered By: Justina Guido on 10-24-2022 Urea nitrogen [Mass/Vol] 10 mg/dL 7-18 [facility] Thin prep Papanicolaou smear with manual screeningOrdered By: Justina Guido on 10-24-2022 Thin prep Papanicolaou smear with manual screening 3 5-15 [facility] Absolute lymphocyte countOrd ered By: Justina Guido on 07-09-2022 Lymphocytes Auto (Unsp spec) [#/Vol] 1.76 10*3/uL 0.83-4.51 [facility] Basophil percentageOrdered B y: Justina Guido on 07-09-2022 Basophils/100 WBC (Bld) 0.4 % 0-1 [facility] Eosinophils/100 WBC (Bld) 1.8 % 0-5 [facility] Neutrophils (Bld) [#/Vol] 8.3 10*3/uL 2.0-7.7 [facility] Neutrophils/100 WBC (Bld) 73.5 % 47-70 [facility] WBC (Bld) [#/Vol] 11.2 10*3/uL 4.4-11.0 [facility] Blood erythrocytes count (nu mber/volume)Ordered By: Justina Guido on 07-09-2022 RBC (Bld) [#/Vol] 3.64 10*6/uL 4.2-5.4 [facility] Blood hemoglobin measurement (mass/volume)Ordered By: Justina Guido on 07-09-2022 Hemoglobin (Bld) [Mass/Vol] 10.4 g/dL 12.0-15.0 [facility] Blood lymphocytes/100 leukoc ytesOrdered By: Justina Guido on 07-09-2022 Lymphocytes/100 WBC (Bld) 15.7 % 19-41 [facility] Blood monocytes/100 leukocyt esOrdered By: Justina Guido on 07-09-2022 Monocytes/100 WBC (Bld) 7.8 % 0-10 [facility] Blood platelet mean volumeOr dered By: Justina Guido on 07-09-2022 Platelet mean volume (Bld) [Entitic vol] 9.2 fL 6.2-12.0 [facility] Determination of erythrocyte mean corpuscular volume (MCV)Ordered By: Justina Guido on 07-09-2022 MCV (RBC) [Entitic vol] 83.2 fL 81-99 [facility] [facility] Hematocrit Auto (Bld) [Volum e fraction]Ordered By: Justina Guido on 07-09-2022 Hematocrit (Bld) [Volume fraction] 30.3 % 37-47 [facility] Laboratory - Hematology and Cell countsOrdered By: Justina Guido on 07-09-2022 Erythrocyte distribution width (RBC) [Entitic vol] 39.6 fL 35.1-43.9 [facility] Erythrocyte distribution width (RBC) [Ratio] 13.2 % 11.6-14.6 [facility] Immature granulocytes/100 WBC (Bld) 0.800 % 0.0-0.9 [facility] Comment on above: IG% - Immature Granu locytes (promyelocytes, myelocytes and metamyelocytes) > 1% indicates that a LEFT SHIFT is Present. MCH (RBC) [Entitic mass] 28.6 pg 27.0-32.0 [facility] Nucleated RBC/100 WBC (Bld) [Ratio] 0 % 0-5 [facility] MCHC Auto (RBC) [Mass/Vol]Or dered By: Justina Guido on 07-09-2022 MCHC (RBC) [Mass/Vol] 34.3 g/dL 32-36 [facility] No Panel InformationOrdered By: Justina Guido on 07-09-2022 Vaginal Amniotic Fluid Detection Positive Negative [facility] Comment on above: Amniotic fluid prese nt indicates rupture of Membranes. RESULTS CALLED TO OZZIE LYONS 07/09/221926 Stephy Borjas.REPORT READ BACK BY SAME . Platelets bldOrdered By: Katie Guido on 07-09-2022 Platelets (Bld) [#/Vol] 252 10*3/uL 150-450 [facility] Laboratory - Chemistry and C hemistry - challengeon 07-03-2022 Glucose Ql (U) Negative [facility] Work Phone: Laboratory - Urinalysison Protein Ql (U) Negative [facility] Work Phone: Laboratory - Chemistry and C hemistry - challengeon 06-27-2022 Glucose Ql (U) Negative [facility] Work Phone: Laboratory - Urinalysison Protein Ql (U) Negative [facility] Work Phone: Laboratory - Chemistry and C hemistry - challengeon 06-16-2022 Glucose Ql (U) Negative [facility] Work Phone: Laboratory - Urinalysison Protein Ql (U) Negative [facility] Work Phone: Laboratory - Chemistry and C hemistry - challengeon 06-02-2022 Glucose Ql (U) Negative [facility] Work Phone: Laboratory - Urinalysison Protein Ql (U) Negative [facility] Work Phone: [phone] Laboratory - Chemistry and C hemistry - challengeon 05-23-2022 Glucose Ql (U) Negative [facility] Work Phone: Laboratory - Urinalysison Protein Ql (U) Negative [facility] Work Phone: Laboratory - Chemistry and C hemistry - challengeon 05-09-2022 Glucose Ql (U) Negative [facility] Work Phone: Laboratory - Urinalysison Protein Ql (U) Negative [facility] Work Phone: [phone] Absolute lymphocyte counton 04-21-2022 Lymphocytes Auto (Unsp spec) [#/Vol] 1.35 10*3/uL 0.83-4.51 [facility] Work Phone: Basophil percentageon 2021 Basophils/100 WBC (Bld) 0.4 % 0-1 [facility] Work Phone: Eosinophils/100 WBC (Bld) 3.3 % 0-5 [facility] Work Phone: Neutrophils (Bld) [#/Vol] 5.8 10*3/uL 2.0-7.7 [facility] Work Phone: Neutrophils/100 WBC (Bld) 71.6 % 47-70 [facility] Work Phone: WBC (Bld) [#/Vol] 8.1 10*3/uL 4.4-11.0 [facility] Work Phone: Blood erythrocytes count (nu mber/volume)on 04-21-2022 RBC (Bld) [#/Vol] 3.67 10*6/uL 4.2-5.4 [facility] Work Phone: Blood hemoglobin measurement (mass/volume)on 04-21-2022 Hemoglobin (Bld) [Mass/Vol] 11.5 g/dL 12.0-15.0 [facility] Work Phone: Blood lymphocytes/100 leukoc yteson 04-21-2022 Lymphocytes/100 WBC (Bld) 16.6 % 19-41 [facility] Work Phone: Blood monocytes/100 leukocyt eson 04-21-2022 Monocytes/100 WBC (Bld) 6.9 % 0-10 [facility] Work Phone: Blood platelet mean volumeon 04-21-2022 Platelet mean volume (Bld) [Entitic vol] 9.0 fL 6.2-12.0 [facility] Work Phone: Determination of erythrocyte mean corpuscular volume (MCV)on 04-21-2022 MCV (RBC) [Entitic vol] 90.7 fL 81-99 [facility] Work Phone: Gestational diabetes screen 1-hour screen with 50g oral glucose loadon 04-21-2022 Glucose 1 Hr post 50 g glucose PO [Mass/Vol] 120 mg/dL 70-140 [facility] Work Phone: Hematocrit Auto (Bld) [Volum e fraction]on 04-21-2022 Hematocrit (Bld) [Volume fraction] 33.3 % 37-47 [facility] Work Phone: [phone] Laboratory - Chemistry and C hemistry - challengeon 04-21-2022 Glucose Ql (U) Negative [facility] Work Phone: Laboratory - Hematology and Cell countson 04-21-2022 Erythrocyte distribution width (RBC) [Entitic vol] 38.8 fL 35.1-43.9 [facility] Work Phone: Erythrocyte distribution width (RBC) [Ratio] 11.8 % 11.6-14.6 [facility] Work Phone: [phone] Immature granulocytes/100 WBC (Bld) 1.200 % 0.0-0.9 [facility] Work Phone: [phone] Comment on above: IG% - Immature Granu locytes (promyelocytes, myelocytes and metamyelocytes) > 1% indicates that a LEFT SHIFT is Present. MCH (RBC) [Entitic mass] 31.3 pg 27.0-32.0 [facility] Work Phone: [phone] Nucleated RBC/100 WBC (Bld) [Ratio] 0 % 0-5 [facility] Work Phone: [phone] Laboratory - Urinalysison Protein Ql (U) Negative [facility] Work Phone: [phone] MCHC Auto (RBC) [Mass/Vol]on 04-21-2022 MCHC (RBC) [Mass/Vol] 34.5 g/dL 32-36 [facility] Work Phone: [phone] No Panel Informationon 04-21 Thyroid Stimulating Hormone (TSH) 1.43 uIU/mL 0.358-3.74 [facility] Work Phone: [phone] Platelets bldon 04-21-2022 Platelets (Bld) [#/Vol] 257 10*3/uL 150-450 [facility] Work Phone: [phone] Laboratory - Chemistry and C hemistry - challengeon 03-25-2022 Glucose Ql (U) Negative [facility] Work Phone: [phone] Laboratory - Urinalysison Protein Ql (U) Negative [facility] Work Phone: [phone] Laboratory - Chemistry and C hemistry - challengeon 02-24-2022 Glucose Ql (U) Negative [facility] Work Phone: [phone] Laboratory - Urinalysison Protein Ql (U) Negative [facility] Work Phone: [phone] Laboratory - Chemistry and C hemistry - challengeon 01-28-2022 Glucose Ql (U) Negative [facility] Work Phone: Laboratory - Urinalysison Protein Ql (U) Negative [facility] Work Phone: Laboratory - Chemistry and C hemistry - challengeon 01-08-2022 Glucose Ql (U) Negative [facility] Work Phone: Laboratory - Urinalysison Protein Ql (U) Negative [facility] Work Phone: Laboratory - Chemistry and C hemistry - challengeon 01-01-2022 Glucose Ql (U) Negative [facility] Work Phone: Laboratory - Urinalysison Protein Ql (U) Negative [facility] Work Phone: Absolute lymphocyte counton 12-05-2021 Lymphocytes Auto (Unsp spec) [#/Vol] 1.68 10*3/uL 0.83-4.51 [facility] Work Phone: Basophil percentageon 2021 Basophils/100 WBC (Bld) 0.5 % 0-1 [facility] Work Phone: Eosinophils/100 WBC (Bld) 1.0 % 0-5 [facility] Work Phone: Neutrophils (Bld) [#/Vol] 5.9 10*3/uL 2.0-7.7 [facility] Work Phone: Neutrophils/100 WBC (Bld) 70.5 % 47-70 [facility] Work Phone: WBC (Bld) [#/Vol] 8.4 10*3/uL 4.4-11.0 [facility] Work Phone: Blood erythrocytes count (nu mber/volume)on 12-05-2021 RBC (Bld) [#/Vol] 4.24 10*6/uL 4.2-5.4 [facility] Work Phone: Blood hemoglobin measurement (mass/volume)on 12-05-2021 Hemoglobin (Bld) [Mass/Vol] 12.5 g/dL 12.0-15.0 [facility] Work Phone: Blood lymphocytes/100 leukoc yteson 12-05-2021 Lymphocytes/100 WBC (Bld) 20.0 % 19-41 [facility] Work Phone: Blood monocytes/100 leukocyt eson 12-05-2021 Monocytes/100 WBC (Bld) 7.5 % 0-10 [facility] Work Phone: Blood platelet mean volumeon 12-05-2021 Platelet mean volume (Bld) [Entitic vol] 9.3 fL 6.2-12.0 [facility] Work Phone: Chlamydia trachomatis rRNA d etection by probe and target amplification methodon 12-05-2021 C. trachomatis rRNA RORY+probe Ql (Unsp spec) Negative Negative [facility] Work Phone: Culture, urineon 12-05-2021 Bacteria identified Cx Nom (U) Streptococcus agalactiae (B) [facility] Work Phone: Determination of erythrocyte mean corpuscular volume (MCV)on 12-05-2021 MCV (RBC) [Entitic vol] 86.1 fL 81-99 [facility] Work Phone: HIV 1 and HIV-2 antibody ass ay with HIV-1 p24 antigen detectionon 12-05-2021 HIV 1+2 Ab+HIV1 p24 Ag IA Ql Non-Reactive Nonreactive [facility] Work Phone: Hematocrit Auto (Bld) [Volum e fraction]on 12-05-2021 Hematocrit (Bld) [Volume fraction] 36.5 % 37-47 [facility] Work Phone: Laboratory - Chemistry and C hemistry - challengeon 12-05-2021 Free T4 [Mass/Vol] 1.11 ng/dL 0.76-1.46 [facility] Work Phone: Laboratory - Drug toxicology on 12-05-2021 Amphetamines Ql (U) Negative <1000 ng/mL [facility] Work Phone: Benzodiazepines Ql (U) Negative < 200 ng/mL [facility] Work Phone: Cannabinoids Screen Ql (U) Negative < 50 ng/mL [facility] Work Phone: Cocaine Ql (U) Negative < 300 ng/mL [facility] Work Phone: Opiates Ql (U) Negative < 300 ng/mL [facility] Work Phone: Laboratory - Hematology and Cell countson 12-05-2021 Erythrocyte distribution width (RBC) [Entitic vol] 37.7 fL 35.1-43.9 [facility] Work Phone: Erythrocyte distribution width (RBC) [Ratio] 11.9 % 11.6-14.6 [facility] Work Phone: Immature granulocytes/100 WBC (Bld) 0.500 % 0.0-0.9 [facility] Work Phone: Comment on above: IG% - Immature Granu locytes (promyelocytes, myelocytes and metamyelocytes) > 1% indicates that a LEFT SHIFT is Present. MCH (RBC) [Entitic mass] 29.5 pg 27.0-32.0 [facility] Work Phone: Nucleated RBC/100 WBC (Bld) [Ratio] 0 % 0-5 [facility] Work Phone: Laboratory - Microbiology an d Antimicrobial susceptibilityon 12-05-2021 N. gonorrhoeae DNA RORY+probe Ql (Unsp spec) Negative Negative [facility] Work Phone: Comment on above: Performed at: =G - L donnell [address] [id number] Director: Isis Aranda MD, Phone: [phone] MCHC Auto (RBC) [Mass/Vol]on 12-05-2021 MCHC (RBC) [Mass/Vol] 34.2 g/dL 32-36 [facility] Work Phone: No Panel Informationon 12-05 MDMA (Ecstasy) Screen Negative < 500 ng/mL [facility] Work Phone: Urine Barbiturates Screen Negative < 200 ng/mL [facility] Work Phone: Urine Drug Screen Comment [facility] Work Phone: Comment on above: [...] Urine Methadone Screen Negative < 300 ng/mL [facility] Work Phone: Hepatitis B Surface Antigen Non-Reactive Nonreactive [facility] Work Phone: Hepatitis C Antibody Non-Reactive Nonreactive [facility] Work Phone: Comment on above: Non Reactive: < 0.8 Equivocal: >/= 0.8 to < 1.0 Reactive: >/= 1.0The CDC recommends that a reactive/equivocal HCV antibody result be followed up by the HCV Nucleic Acid Amplificationtest (920699) Rubella IgG Antibody Reactive Nonreactive [facility] Work Phone: Comment on above: Antibody Results Int erpretation of Immune Status Non Reactive Presumed Non-Immune Equivocal Equivocal Reactive Presumed Immune Thyroid Stimulating Hormone (TSH) 1.46 uIU/mL 0.358-3.74 [facility] Work Phone: Platelets bldon 12-05-2021 Platelets (Bld) [#/Vol] 288 10*3/uL 150-450 [facility] Work Phone: Serum Treponema species anti body detectionon 12-05-2021 Treponema sp Ab Ql (S) Non-Reactive [facility] Work Phone: Urine phencyclidine (PCP) de tectionon 12-05-2021 Phencyclidine Ql (U) Negative < 25 ng/mL [facility] Work Phone: Serum or plasma choriogonado tropin detectionon 11-19-2021 HCG ( test) [place]l [address] mIU/mL <4 [facility] Work Phone: Comment on above: hCG levels with Gest ational AgeGestational Age hCG mIU/mL (IU/L)0.2 - 1 week 5 - 501-2 weeks 50 - 5002-3 weeks 100 - 70608-7 weeks 500 - 130657-4 weeks 1000 - 733970-2 weeks 49397 - 100,0006-8 weeks 67264 - 200,0002-3 months 01230 - 100,000 Laboratory - Chemistry and C hemistry - challengeon 10-07-2021 Free T4 [Mass/Vol] 0.89 ng/dL 0.76-1.46 [facility] Work Phone: No Panel Informationon 10-07 Thyroid Stimulating Hormone (TSH) 2.36 uIU/mL 0.358-3.74 [facility] Work Phone: No Panel Informationon 08-09 Free Triiodothyronine (T3) pg/dL 3.1 pg/mL 2.18-3.98 [facility] Work Phone: Thyroid Stimulating Hormone (TSH) 3.86 uIU/mL 0.358-3.74 [facility] Work Phone: Homocysteine-Serumon 08-20- 018 Homocysteine-Serum 7.2 umol/L Normal <10.4 [facility] Comment on above: Result Comment: Homo cysteine is increased by functional deficiency offolate or vitamin B12. Testing for methylmalonic aciddifferentiates between these deficiencies. Other causesof increased homocysteine include renal failure, folateantagonists such as methotrexate and phenytoin, andexposure to nitrous oxide.Test Performed by [facility],[address] [place] [id number] Villela M.D., Ph.D., Director of [phone], CLIA [id number] Performed By: #### H OMOCYSTEINEQ ####[place] [address] [place], [place] [id number] Homocysteine-Serumon 018 Age at Specimen Collection = Normal [facility] Comment on above: Performed By: #### H OMOCYSTEINEQ ####[place] [address] [place], [place] [id number] CBC With Auto Diff.on 2016 Basophils Auto #/vol (Bld) 0.02 10*3/uL Normal 0.00-0.15 [facility] Comment on above: Order Comment: Regul atory Requirements State: Only Absolute Cell Counts are reported with their reference ranges. Performed By: #### C BC ####[facility] (DEFAULT)[address] [place] [address] Basophils/100 WBC Auto (Bld) 0.3 % Normal [facility] Comment on above: Order Comment: Regul atory Requirements State: Only Absolute Cell Counts are reported with their reference ranges. Performed By: #### C BC ####[facility] (DEFAULT)[address] [place] [address] Eosinophils 0.01 10*3/uL Normal 0.00-0.70 [facility] Comment on above: Order Comment: Regul atory Requirements State: Only Absolute Cell Counts are reported with their reference ranges. Performed By: #### C BC ####[facility] (DEFAULT)[address] [place] [address] Eosinophils/100 leukocytes 0.2 % Normal [facility] Comment on above: Order Comment: Regul atory Requirements State: Only Absolute Cell Counts are reported with their reference ranges. Performed By: #### C BC ####[facility] (DEFAULT)[address] [place] [address] Erythrocyte distribution width Auto Ratio (RBC) 11.5 % Normal 11.0-16.0 [facility] Comment on above: Order Comment: Regul atory Requirements State: Only Absolute Cell Counts are reported with their reference ranges. Performed By: #### C BC ####[facility] (DEFAULT)[address] [place], [place] [address] Erythrocytes (RBC) 4.32 10*6/uL Normal 2.50-5.50 [facility] Comment on above: Order Comment: Regul atory Requirements State: Only Absolute Cell Counts are reported with their reference ranges. Performed By: #### C BC ####[facility] (DEFAULT)[address] [place], [place] [address] Hematocrit (HCT) 37.2 % Low 38.0-46.0 [facility] Comment on above: Order Comment: Regul atory Requirements State: Only Absolute Cell Counts are reported with their reference ranges. Performed By: #### C BC ####[facility] (DEFAULT)[address] [place] [address] Hemoglobin mass conc (Bld) 13.3 g/dL Normal 12.0-15.0 [facility] Comment on above: Order Comment: Regul atory Requirements State: Only Absolute Cell Counts are reported with their reference ranges. Performed By: #### C BC ####[facility] (DEFAULT)[address] [place] [address] Ig% 0.3 % Normal 0.0-4.0 [facility] Comment on above: Order Comment: Regul atory Requirements State: Only Absolute Cell Counts are reported with their reference ranges. Performed By: #### C BC ####[facility] (DEFAULT)[address] [place], [place] [address] Lymphocytes 1.78 10*3/uL Normal 1.10-4.40 [facility] Comment on above: Order Comment: Regul atory Requirements State: Only Absolute Cell Counts are reported with their reference ranges. Performed By: #### C BC ####[facility] (DEFAULT)[address] [place], [place] [address] Lymphocytes variants/100 leukocytes 26.8 % Normal [facility] Comment on above: Order Comment: Regul atory Requirements State: Only Absolute Cell Counts are reported with their reference ranges. Performed By: #### C BC ####[facility] (DEFAULT)[address] [place] [address] MCH 30.8 pg Normal 26.0-38.0 [facility] Comment on above: Order Comment: Regul atory Requirements State: Only Absolute Cell Counts are reported with their reference ranges. Performed By: #### C BC ####[facility] (DEFAULT)[address] [place], [place] [address] MCHC mass conc (RBC) 35.8 g/dL Normal 31.0-37.0 [facility] Comment on above: Order Comment: Regul atory Requirements State: Only Absolute Cell Counts are reported with their reference ranges. Performed By: #### C BC ####[facility] (DEFAULT)[address] [place], [place] [address] MCV 86 fL Normal 78-94 [facility] Comment on above: Order Comment: Regul atory Requirements State: Only Absolute Cell Counts are reported with their reference ranges. Performed By: #### C BC ####[facility] (DEFAULT)[address] [place], [place] [address] Monocytes 0.57 10*3/uL Normal 0.20-0.95 [facility] Comment on above: Order Comment: Regul atory Requirements State: Only Absolute Cell Counts are reported with their reference ranges. Performed By: #### C BC ####[facility] (DEFAULT)[address] [place] [address] Monocytes/100 leukocytes 8.6 % Normal [facility] Comment on above: Order Comment: Regul atory Requirements State: Only Absolute Cell Counts are reported with their reference ranges. Performed By: #### C BC ####[facility] (DEFAULT)[address] [place], [place] [address] Neutrophils 4.25 10*3/uL Normal 1.50-7.50 [facility] Comment on above: Order Comment: Regul atory Requirements State: Only Absolute Cell Counts are reported with their reference ranges. Performed By: #### C BC ####[facility] (DEFAULT)[address] [place] [address] Neutrophils/100 WBC Auto (Bld) 63.8 % Normal [facility] Comment on above: Order Comment: Regul atory Requirements State: Only Absolute Cell Counts are reported with their reference ranges. Performed By: #### C BC ####[facility] (DEFAULT)[address] [place], [place] [address] Platelet mean volume (PMV) 9.3 fL Normal 9.0-13.0 [facility] Comment on above: Order Comment: Regul atory Requirements State: Only Absolute Cell Counts are reported with their reference ranges. Performed By: #### C BC ####[facility] (DEFAULT)[address] [place] [address] Platelets 283 U/uL Normal 150-450 [facility] Comment on above: Order Comment: Regul atory Requirements State: Only Absolute Cell Counts are reported with their reference ranges. Performed By: #### C BC ####[facility] (DEFAULT)[address] [place] [address] WBC (Leukocytes) 6.65 10*3/uL Normal 4.80-11.80 [facility] Comment on above: Order Comment: Regul atory Requirements State: Only Absolute Cell Counts are reported with their reference ranges. Performed By: #### C BC ####[facility] (DEFAULT)[address] [place] [address] Homocyst(e)ine, Plasmaon Homocyst(e)ine, Plasma HOMOCYSTEINE: 5.8 Units: umol/L Ref Range: 5.0-15.0 Testing Performed At: [facility] [address] [place] [address] Normal [facility] Comment on above: Performed By: #### H CYST ####[facility] (DEFAULT)[address] [place] [address] Protein C Agon 01-23-2017 Protein C Ag PROTEIN C ANTIGEN: 9 8 Units: % Ref Range: 60-125Testing Performed At: [facility] [address] [place], [place] [address]Normal, full-term infants or healthy premature infants may have decreased levels of Protein-C Antigen (15-50%), which may not reach adult levels until later inchildhood or early adolescence. Normal [facility] Comment on above: Performed By: #### P ROTCAG ####[facility] (DEFAULT)[address] [address] Culture, urine Bacteria identified Cx Nom (U) Streptococcus agalactiae (B) [facility] Work Phone: Gram stain for investigation of transfusion reaction Microscopic observation Gram stain Nom (Unsp spec) [facility] Work Phone: Thin prep Papanicolaou smear with manual screening Genital Culture Streptococcus agalac tiae (B) [facility] Work Phone: Genital Culture Mixed Joanne [facility] Work Phone: Vital Signs Date Time Vital Sign Value Performing Clinician Facility 02-27-2025 09:42-0400 Body height 160.02 cm Farzaneh Kt DO Work Phone: [facility] 02-27-2025 09:39-0400 Diastolic blood pressure 78 mm[Hg] Farzaneh Kt DO Work Phone: [phone] [place] [address] 02-27-2025 09:39-0400 Systolic blood pressure 124 mm[Hg] Farzaneh Kt DO Work Phone: [phone] [address] 01-18-2025 13:36-0400 Body temperature 97.8 [degF] Farzaneh Kt DO Work Phone: [phone] [place] [address] 01-18-2025 13:36-0400 Diastolic blood pressure 80 mm[Hg] Farzaneh Kt DO Work Phone: [phone] [place] [address] 01-18-2025 13:36-0400 Heart rate 68 /min Farzaneh Kt DO Work Phone: [phone] [place] [address] 01-18-2025 13:36-0400 Respiratory rate 18 /min Farzaneh Kt DO Work Phone: [phone] [place] [address] 01-18-2025 13:36-0400 SaO2% (BldA) [Mass fraction] 99 % Farzaneh Kt DO Work Phone: [phone] [place] [address] 01-18-2025 13:36-0400 Systolic blood pressure 124 mm[Hg] Farzaneh Kt DO Work Phone: [phone] [place] [address] 01-16-2025 16:57-0400 Body height 160.02 cm Farzaneh Kt DO Work Phone: [phone] [place] [address] 01-16-2025 16:57-0400 Body mass index (BMI) [Ratio] 28.8 kg/m2 Farzaneh Kt DO Work Phone: 1(176)584-146570 [place] [address] 01-16-2025 16:57-0400 Body weight 73.75 kg Farzaneh Kt DO Work Phone: 4(129)187-707970 [place] [address] 01-12-2025 08:29-0400 Body height 160.02 cm Farzaneh Kt DO Work Phone: 1(532)229-546670 [place] [address] 01-12-2025 08:29-0400 Body mass index (BMI) [Ratio] 28 kg/m2 Farzaneh Kt DO Work Phone: 3(948)173-941370 [place] [address] 01-12-2025 08:29-0400 Body weight 71.66 kg Farzaneh Kt DO Work Phone: 7(895)223-583870 [place] [address] 01-12-2025 08:29-0400 Diastolic blood pressure 67 mm[Hg] Farzaneh Kt DO Work Phone: 4(403)181-211470 [place] [address] 01-12-2025 08:29-0400 Systolic blood pressure 108 mm[Hg] Farzaneh Kt DO Work Phone: 5(280)702-614770 [place] [address] 01-05-2025 11:37-0400 Body height 160.02 cm Farzaneh Kt DO Work Phone: 5(431)675-946870 [place] [address] 01-05-2025 11:37-0400 Body mass index (BMI) [Ratio] 28.2 kg/m2 Farzaneh Kt DO Work Phone: 3(362)957-968870 [place] [address] 01-05-2025 11:37-0400 Body weight 72.29 kg Farzaneh Kt DO Work Phone: 0(565)075-429270 [place] [address] 01-05-2025 11:37-0400 Diastolic blood pressure 86 mm[Hg] Farzaneh Kt DO Work Phone: 4(872)473-473770 [place] [address] 01-05-2025 11:37-0400 Systolic blood pressure 132 mm[Hg] Farzaneh Kt DO Work Phone: 0(303)434-930270 [place] [address] 12-29-2024 15:36-0400 Body height 160.02 cm Farzaneh Kt DO Work Phone: 9(527)829-286170 [place] [address] 12-29-2024 15:32-0400 Body mass index (BMI) [Ratio] 27.8 kg/m2 Farzaneh Kt DO Work Phone: 1(576)146-306270 [place] [address] 12-29-2024 15:32-0400 Body weight 71.44 kg Farzaneh Kt DO Work Phone: 5(881)584-728570 [place] [address] 12-29-2024 15:32-0400 Diastolic blood pressure 69 mm[Hg] Farzaneh Kt DO Work Phone: 5(288)808-532970 [place] [address] 12-29-2024 15:32-0400 Systolic blood pressure 121 mm[Hg] Farzaneh Kt DO Work Phone: 6(302)772-299270 [place] [address] 12-19-2024 14:13-0400 Body height 160.02 cm Farzaneh Kt DO Work Phone: 9(469)689-929270 [place] [address] 12-19-2024 14:11-0400 Body mass index (BMI) [Ratio] 27.5 kg/m2 Farzaneh Kt DO Work Phone: 4(975)193-710270 [place] [address] 12-19-2024 14:11-0400 Body weight 70.47 kg Farzaneh Kt DO Work Phone: 7(772)065-552070 [place] [address] 12-19-2024 14:11-0400 Diastolic blood pressure 71 mm[Hg] Farzaneh Kt DO Work Phone: 1(088)161-869170 [place] [address] 12-19-2024 14:11-0400 Systolic blood pressure 114 mm[Hg] Farzaneh Kt DO Work Phone: 9(334)884-008670 [place] [address] 12-09-2024 10:07-0400 Body height 160.02 cm Farzaneh Kt DO Work Phone: 3(038)260-189070 [place] [address] 12-09-2024 10:07-0400 Body mass index (BMI) [Ratio] 26.9 kg/m2 Farzaneh Kt DO Work Phone: 4(881)984-671370 [place] [address] 12-09-2024 10:07-0400 Body weight 68.94 kg Farzaneh Kt DO Work Phone: 3(580)373-974070 [place] [address] 12-09-2024 10:07-0400 Diastolic blood pressure 70 mm[Hg] Farzaneh Kt DO Work Phone: 7(553)372-999270 [place] [address] 12-09-2024 10:07-0400 Systolic blood pressure 113 mm[Hg] Farzaneh Kt DO Work Phone: 7(394)610-453470 [place] [address] 11-25-2024 10:04-0400 Body height 160.02 cm Farzaneh Kt DO Work Phone: 4(927)768-296970 [place] [address] 11-25-2024 10:04-0400 Body mass index (BMI) [Ratio] 25.9 kg/m2 Farzaneh Kt DO Work Phone: 9(084)704-886170 [place] [address] 11-25-2024 10:04-0400 Body weight 66.39 kg Farzaneh Kt DO Work Phone: 4(205)614-544770 [place] [address] 11-25-2024 10:04-0400 Diastolic blood pressure 69 mm[Hg] Farzaneh Kt DO Work Phone: 9(949)669-120570 [place] [address] 11-25-2024 10:04-0400 Systolic blood pressure 111 mm[Hg] Farzaneh Kt DO Work Phone: 6(233)547-812170 [place] [address] 11-16-2024 09:11-0400 Body mass index (BMI) [Ratio] 26.2 kg/m2 Farzaneh Kt DO Work Phone: 2(083)392-205270 [place] [address] 11-16-2024 09:11-0400 Body weight 67.18 kg Farzaneh Kt DO Work Phone: 5(474)321-601070 [place] [address] 11-16-2024 09:11-0400 Diastolic blood pressure 72 mm[Hg] Farzaneh Kt DO Work Phone: 5(099)478-068570 [place] [address] 11-16-2024 09:11-0400 Systolic blood pressure 117 mm[Hg] Farzaneh Kt DO Work Phone: 7(330)476-331870 [place] [address] 11-04-2024 15:31-0400 Body mass index (BMI) [Ratio] 26.5 kg/m2 Farzaneh Kt DO Work Phone: 3(170)952-571970 [place] [address] 11-04-2024 15:31-0400 Body weight 68.03 kg Farzaneh Kt DO Work Phone: 5(990)069-258970 [place] [address] 11-04-2024 15:31-0400 Diastolic blood pressure 70 mm[Hg] Farzaneh Kt DO Work Phone: 6(477)653-876170 [place] [address] 11-04-2024 15:31-0400 Heart rate 83 /min Farzaneh Kt DO Work Phone: 2(664)650-437270 [place] [address] 11-04-2024 15:31-0400 SaO2% (BldA) [Mass fraction] 97 % Farzaneh Kt DO Work Phone: 9(349)377-999070 [place] [address] 11-04-2024 15:31-0400 Systolic blood pressure 107 mm[Hg] Farzaneh Kt DO Work Phone: 1(827)900-781070 [place] [address] 10-26-2024 10:28-0400 Body height 160.02 cm Farzaneh Kt DO Work Phone: 1(635)242-189670 [place] [address] 10-26-2024 10:28-0400 Body mass index (BMI) [Ratio] 26.2 kg/m2 Farzaneh Kt DO Work Phone: 1(967)467-883670 [place] [address] 10-26-2024 10:28-0400 Body weight 67.13 kg Farzaneh Kt DO Work Phone: 1(082)706-417370 [place] [address] 10-26-2024 10:28-0400 Diastolic blood pressure 74 mm[Hg] Farzaneh Kt DO Work Phone: 4(315)454-694170 [place] [address] 10-26-2024 10:28-0400 Systolic blood pressure 114 mm[Hg] Farzaneh Kt DO Work Phone: 3(261)063-978470 [place] [address] 10-12-2024 10:56-0400 Body mass index (BMI) [Ratio] 25.5 kg/m2 Farzaneh Kt DO Work Phone: 5(308)813-090270 [place] [address] 10-12-2024 10:56-0400 Body weight 65.48 kg Farzaneh Kt DO Work Phone: 5(774)659-865170 [place] [address] 10-12-2024 10:56-0400 Diastolic blood pressure 77 mm[Hg] Farzaneh Kt DO Work Phone: 9(498)890-001270 [place] [address] 10-12-2024 10:56-0400 Systolic blood pressure 117 mm[Hg] Farzaneh Kt DO Work Phone: 6(689)997-830270 [place] [address] 09-30-2024 10:59-0400 Body mass index (BMI) [Ratio] 24.7 kg/m2 Farzaneh Kt DO Work Phone: 8(716)460-455670 [place] [address] 09-30-2024 10:59-0400 Body weight 63.5 kg Farzaneh Kt DO Work Phone: 9(541)650-341270 [place] [address] 09-30-2024 10:59-0400 Diastolic blood pressure 69 mm[Hg] Farzaneh Kt DO Work Phone: 6(113)514-393870 [place] [address] 09-30-2024 10:59-0400 Systolic blood pressure 108 mm[Hg] Farzaneh Kt DO Work Phone: 5(956)776-700770 [place] [address] 09-16-2024 11:23-0500 Body mass index (BMI) [Ratio] 24.6 kg/m2 Farzaneh Kt DO Work Phone: 9(862)432-311570 [place] [address] 09-16-2024 11:23-0500 Body weight 63.04 kg Farzaneh Kt DO Work Phone: 1(890)789-296570 [place] [address] 09-16-2024 11:23-0500 Diastolic blood pressure 74 mm[Hg] Farzaneh Kt DO Work Phone: 4(172)199-388870 [place] [address] 09-16-2024 11:23-0500 Systolic blood pressure 124 mm[Hg] Farzaneh Kt DO Work Phone: 3(288)355-794370 [place] [address] 08-17-2024 14:58-0500 Body height 160.02 cm Farzaneh Kt DO Work Phone: 8(453)916-167070 [place] [address] 08-17-2024 14:58-0500 Body mass index (BMI) [Ratio] 23.6 kg/m2 Farzaneh Kt DO Work Phone: 7(470)369-244570 [place] [address] 08-17-2024 14:58-0500 Body weight 60.44 kg Farzaneh Kt DO Work Phone: 2(675)687-102070 [place] [address] 08-17-2024 14:58-0500 Diastolic blood pressure 62 mm[Hg] Farzaneh Kt DO Work Phone: 9(239)835-247970 [place] [address] 08-17-2024 14:58-0500 Systolic blood pressure 110 mm[Hg] Farzaneh Kt DO Work Phone: 8(250)537-915070 [place] [address] 08-01-2024 13:32-0500 Body mass index (BMI) [Ratio] 23.2 kg/m2 Farzaneh Kt DO Work Phone: 6(818)239-000870 [place] [address] 08-01-2024 13:32-0500 Body weight 59.42 kg Farzaneh Kt DO Work Phone: 5(731)661-499370 [place] [address] 08-01-2024 13:32-0500 Diastolic blood pressure 80 mm[Hg] Farzaneh Kt DO Work Phone: 3(266)165-974070 [place] [address] 08-01-2024 13:32-0500 Systolic blood pressure 129 mm[Hg] Farzaneh Kt DO Work Phone: 0(628)972-134570 [place] [address] 07-20-2024 15:37-0500 Body mass index (BMI) [Ratio] 22.7 kg/m2 Farzaneh Kt DO Work Phone: 9(749)816-409870 [place] [address] 07-20-2024 15:37-0500 Body weight 58.28 kg Farzaneh Kt DO Work Phone: 0(164)919-210070 [place] [address] 07-20-2024 15:37-0500 Diastolic blood pressure 74 mm[Hg] Farzaneh Kt DO Work Phone: 6(246)458-594670 [place] [address] 07-20-2024 15:37-0500 Systolic blood pressure 112 mm[Hg] Farzaneh Kt DO Work Phone: 8(227)265-663870 [place] [address] 06-29-2024 10:18-0500 Body mass index (BMI) [Ratio] 22.4 kg/m2 Farzaneh Kt DO Work Phone: 1(586)693-274470 [place] [address] 06-29-2024 10:18-0500 Body weight 57.6 kg Farzaneh Kt DO Work Phone: 7(665)184-583470 [place] [address] 06-29-2024 10:18-0500 Diastolic blood pressure 78 mm[Hg] Farzaneh Kt DO Work Phone: 0(650)776-361670 [place] [address] 06-29-2024 10:18-0500 Systolic blood pressure 121 mm[Hg] Farzaneh Kt DO Work Phone: 7(830)532-519670 [place] [address] 06-17-2024 08:47-0500 Body mass index (BMI) [Ratio] 22.7 kg/m2 Farzaneh Kt DO Work Phone: 0(491)625-922670 [place] [address] 06-17-2024 08:47-0500 Body weight 58.17 kg Farzaneh Kt DO Work Phone: 5(528)925-665470 [place] [address] 06-17-2024 08:47-0500 Diastolic blood pressure 84 mm[Hg] Farzaneh Kt DO Work Phone: 6(339)192-583270 [place] [address] 06-17-2024 08:47-0500 Systolic blood pressure 127 mm[Hg] Farzaneh Kt DO Work Phone: 1(205)517-414770 [place] [address] 09-24-2023 07:38-0400 Body height 160.[address] Warren Melendez Work Phone: [facility] 09-24-2023 07:35-0400 Body mass index (BMI) [Ratio] 22.8 kg/m2 Dr. Warren Melendez Work Phone: [facility] 09-24-2023 07:35-0400 Body weight 58.[address] Warren Melendez Work Phone: [facility] 09-24-2023 07:35-0400 Diastolic blood pressure 71 mm[Hg] Dr. Warren Melendez Work Phone: [facility] 09-24-2023 07:35-0400 Systolic blood pressure 111 mm[Hg] Dr. Warren Melendez Work Phone: [facility] 09-10-2023 07:52-0500 Body mass index (BMI) [Ratio] 23.7 kg/m2 Dr. Warren Melendez Work Phone: [facility] 09-10-2023 07:52-0500 Body weight 60.[address] Warren Melendez Work Phone: [facility] 09-10-2023 07:52-0500 Diastolic blood pressure 76 mm[Hg] Dr. Warren Melendez Work Phone: [facility] 09-10-2023 07:52-0500 Systolic blood pressure 114 mm[Hg] Dr. Warren Melendez Work Phone: [facility] 10-30-2022 10:29-0400 Body height 160.[address] Warren Melendez Work Phone: [facility] 10-30-2022 10:29-0400 Body mass index (BMI) [Ratio] 24.8 kg/m2 Dr. Warren Melendez Work Phone: [facility] 10-30-2022 10:29-0400 Body temperature 98.1 [degF] Dr. Warren Melendez Work Phone: [facility] 10-30-2022 10:29-0400 Body weight 63.[address] Warren Melendez Work Phone: [facility] 10-30-2022 10:29-0400 Diastolic blood pressure 79 mm[Hg] Dr. Warren Melendez Work Phone: [facility] 10-30-2022 10:29-0400 Heart rate 69 /min Dr. Warren Melendez Work Phone: [facility] 10-30-2022 10:29-0400 Respiratory rate 16 /min Dr. Warren Melendez Work Phone: [facility] 10-30-2022 10:29-0400 SaO2% (BldA) [Mass fraction] 85 % Dr. Warren Melendez Work Phone: [facility] 10-30-2022 10:29-0400 Systolic blood pressure 126 mm[Hg] Dr. Warren Melenedz Work Phone: 2(072)628-779097 [address] 08-20-2022 09:30-0500 Body mass index (BMI) [Ratio] 25 kg/m2 Dr. Warren Melendez Work Phone: 9(522)844-532739 [place] [address] 08-20-2022 09:30-0500 Body weight 64.[address] Warren Melendez Work Phone: [facility] 08-20-2022 09:30-0500 Diastolic blood pressure 86 mm[Hg] Dr. Warren Melendez Work Phone: 5(197)897-755997 [address] 08-20-2022 09:30-0500 Systolic blood pressure 122 mm[Hg] Dr. Warren Melendez Work Phone: 5(727)168-06[address] [place] [address] 07-11-2022 14:01-0500 Diastolic blood pressure 84 mm[Hg] Dr. Warren Melendez Work Phone: [facility] 07-11-2022 14:01-0500 Heart rate 85 /min Dr. Warren Melendez Work Phone: [facility] 07-11-2022 14:01-0500 SaO2% (BldA) [Mass fraction] 99 % Dr. Warren Melendez Work Phone: [facility] 07-11-2022 14:01-0500 Systolic blood pressure 128 mm[Hg] Dr. Warren Melendez Work Phone: [facility] 07-11-2022 14:00-0500 Body temperature 98.2 [degF] Dr. Warren Melendez Work Phone: [facility] 07-11-2022 14:00-0500 Respiratory rate 15 /min Dr. Warren Melendez Work Phone: [facility] 07-09-2022 18:59-0500 Body height 160.[address] Warren Melendez Work Phone: [facility] Work Phone: 07-09-2022 18:59-0500 Body mass index (BMI) [Ratio] 28.5 kg/m2 Dr. Warren Melendez Work Phone: [facility] 07-09-2022 18:59-0500 Body weight 73.[address] Warren Melendez Work Phone: [facility] 07-03-2022 11:06-0500 Body mass index (BMI) [Ratio] 28.5 kg/m2 Dr. Warren Melendez Work Phone: [facility] Work Phone: 07-03-2022 11:06-0500 Body weight 73.[address] Warren Melendez Work Phone: [facility] Work Phone: 07-03-2022 11:06-0500 Diastolic blood pressure 76 mm[Hg] Dr. Warren Melendez Work Phone: [facility] Work Phone: 07-03-2022 11:06-0500 Systolic blood pressure 118 mm[Hg] Dr. Warren Melendez Work Phone: [facility] Work Phone: 06-27-2022 11:02-0500 Body height 160.[address] Warren Melendez Work Phone: [facility] Work Phone: 06-27-2022 11:01-0500 Body mass index (BMI) [Ratio] 28.5 kg/m2 Dr. Warren Melendez Work Phone: [facility] Work Phone: 06-27-2022 11:01-0500 Body weight 73.[address] Warren Melendez Work Phone: [facility] Work Phone: 06-27-2022 11:01-0500 Diastolic blood pressure 77 mm[Hg] Dr. Warren Melendez Work Phone: [facility] Work Phone: 06-27-2022 11:01-0500 Systolic blood pressure 126 mm[Hg] Dr. Warren Melendez Work Phone: [facility] Work Phone: 06-16-2022 09:13-0500 Body mass index (BMI) [Ratio] 28.3 kg/m2 Dr. Warren Melendez Work Phone: [facility] Work Phone: 06-16-2022 09:13-0500 Body weight 72.[address] Warren Melendez Work Phone: [facility] Work Phone: 06-16-2022 09:13-0500 Diastolic blood pressure 62 mm[Hg] Dr. Warren Melendez Work Phone: [facility] Work Phone: 06-16-2022 09:13-0500 Systolic blood pressure 124 mm[Hg] Dr. Warren Melendez Work Phone: [facility] Work Phone: 06-02-2022 09:04-0500 Body mass index (BMI) [Ratio] 27.6 kg/m2 Dr. Warren Melendez Work Phone: [facility] Work Phone: 06-02-2022 09:04-0500 Body weight 70.[address] Warren Melendez Work Phone: [facility] Work Phone: 06-02-2022 09:04-0500 Diastolic blood pressure 76 mm[Hg] Dr. Warren Melendez Work Phone: [facility] Work Phone: 06-02-2022 09:04-0500 Systolic blood pressure 132 mm[Hg] Dr. Warren Melendez Work Phone: [facility] Work Phone: 05-23-2022 09:27-0500 Body height 160.[address] Warren Melendez Work Phone: [facility] Work Phone: 05-23-2022 09:26-0500 Body mass index (BMI) [Ratio] 27.6 kg/m2 Dr. Warren Melendez Work Phone: [facility] Work Phone: 05-23-2022 09:26-0500 Body weight 70.[address] Warren Melendez Work Phone: [facility] Work Phone: 05-23-2022 09:26-0500 Diastolic blood pressure 69 mm[Hg] Dr. Warren Melendez Work Phone: [facility] Work Phone: 05-23-2022 09:26-0500 Systolic blood pressure 120 mm[Hg] Dr. Warren Melendez Work Phone: [facility] Work Phone: 05-09-2022 11:42-0400 Body mass index (BMI) [Ratio] 26.9 kg/m2 Dr. Warren Melendez Work Phone: [facility] Work Phone: 05-09-2022 11:42-0400 Body weight 68.[address] Warren Melendez Work Phone: [facility] Work Phone: 05-09-2022 11:42-0400 Diastolic blood pressure 60 mm[Hg] Dr. Warren Melendez Work Phone: [facility] Work Phone: 05-09-2022 11:42-0400 Systolic blood pressure 118 mm[Hg] Dr. Warren Melendez Work Phone: [facility] Work Phone: 04-21-2022 10:45-0400 Body height 160.[address] Warren Melendez Work Phone: [facility] Work Phone: 04-21-2022 10:45-0400 Body mass index (BMI) [Ratio] 26.1 kg/m2 Dr. Warren Melendez Work Phone: [facility] Work Phone: 04-21-2022 10:45-0400 Body weight 66.[address] Warren Melendez Work Phone: [facility] Work Phone: 04-21-2022 10:45-0400 Diastolic blood pressure 78 mm[Hg] Dr. Warren Melendez Work Phone: [facility] Work Phone: 04-21-2022 10:45-0400 Systolic blood pressure 124 mm[Hg] Dr. Warren Melendez Work Phone: [facility] Work Phone: 03-25-2022 15:42-0400 Body mass index (BMI) [Ratio] 25 kg/m2 Dr. Warren Melendez Work Phone: [facility] Work Phone: 03-25-2022 15:42-0400 Body weight 63.[address] Warren Melendez Work Phone: [facility] Work Phone: 03-25-2022 15:42-0400 Diastolic blood pressure 69 mm[Hg] Dr. Warren Melendez Work Phone: [facility] Work Phone: 03-25-2022 15:42-0400 Systolic blood pressure 111 mm[Hg] Dr. Warren Melendez Work Phone: [facility] Work Phone: 02-24-2022 10:51-0400 Body mass index (BMI) [Ratio] 23.3 kg/m2 Dr. Warren Melendez Work Phone: [facility] Work Phone: 02-24-2022 10:51-0400 Body weight 59.[address] Warren Melendez Work Phone: [facility] Work Phone: 02-24-2022 10:51-0400 Diastolic blood pressure 69 mm[Hg] Dr. Warren Melendez Work Phone: [facility] Work Phone: 02-24-2022 10:51-0400 Systolic blood pressure 110 mm[Hg] Dr. Warren Melendez Work Phone: [facility] Work Phone: 01-28-2022 09:31-0400 Body mass index (BMI) [Ratio] 22 kg/m2 Dr. Warren Melendez Work Phone: [facility] Work Phone: 01-28-2022 09:31-0400 Body weight 56.[address] Warren Melendez Work Phone: [facility] Work Phone: 01-28-2022 09:31-0400 Diastolic blood pressure 60 mm[Hg] Dr. Warren Melendez Work Phone: [facility] Work Phone: 01-28-2022 09:31-0400 Systolic blood pressure 118 mm[Hg] Dr. Warren Melendez Work Phone: [facility] Work Phone: 01-08-2022 09:38-0400 Body height 160.[address] Warren Melendez Work Phone: [facility] Work Phone: 01-08-2022 08:09-0400 Body mass index (BMI) [Ratio] 21.4 kg/m2 Dr. Warren Melendez Work Phone: [facility] Work Phone: 01-08-2022 08:09-0400 Body weight 54.[address] Warren Melendez Work Phone: [facility] Work Phone: 01-08-2022 08:09-0400 Diastolic blood pressure 60 mm[Hg] Dr. Warren Melendez Work Phone: [facility] Work Phone: 01-08-2022 08:09-0400 Systolic blood pressure 110 mm[Hg] Dr. Warren Melendez Work Phone: [facility] Work Phone: 01-01-2022 10:34-0400 Body mass index (BMI) [Ratio] 21.2 kg/m2 Dr. Warren Melendez Work Phone: [facility] Work Phone: 01-01-2022 10:34-0400 Body weight 54.[address] Warren Melendez Work Phone: [facility] Work Phone: 01-01-2022 10:34-0400 Diastolic blood pressure 82 mm[Hg] Dr. Warren Melendez Work Phone: [facility] Work Phone: 01-01-2022 10:34-0400 Systolic blood pressure 120 mm[Hg] Dr. Warren Melendez Work Phone: [facility] Work Phone: 12-05-2021 14:30-0400 Diastolic blood pressure 68 mm[Hg] Dr. Warren Melendez Work Phone: [facility] Work Phone: 12-05-2021 14:30-0400 Systolic blood pressure 112 mm[Hg] Dr. Warren Melendez Work Phone: [facility] Work Phone: 12-05-2021 14:30-0400 Diastolic blood pressure 68 mm[Hg] Dr. Warren Melendez Work Phone: [facility] Work Phone: 12-05-2021 14:30-0400 Systolic blood pressure 112 mm[Hg] Dr. Warren Melendez Work Phone: [facility] Work Phone: 12-05-2021 14:01-0400 Body mass index (BMI) [Ratio] 21.4 kg/m2 Dr. Warern Melendez Work Phone: [facility] Work Phone: 12-05-2021 14:01-0400 Body weight 54.[address] Warren Melendez Work Phone: [facility] Work Phone: 12-05-2021 14:01-0400 Body height 160.[address] Warren Melendez Work Phone: [facility] Work Phone: 12-05-2021 14:01-0400 Body mass index (BMI) [Ratio] 21.4 kg/m2 Dr. Warren Melendez Work Phone: [facility] Work Phone: 12-05-2021 14:01-0400 Body weight 54.[address] Warren Melendez Work Phone: [facility] Work Phone: 04-23-2017 13:41-0400 BP Diastolic 78 mm[Hg] [facility] Work Phone: 04-23-2017 13:41-0400 BP Systolic 128 mm[Hg] [facility] Work Phone: 04-23-2017 13:41-0400 Pulse (Heart Rate) 94 /min [facility] Work Phone: 04-23-2017 13:41-0400 Weight 51.71 kg [facility] Work Phone: Encounters Encounter Date Encounter Type Care Provider Facility Start: 05-23-2025 ambulatory [facility] Facility :[facility] Start: 02-27-2025 End: 02-27-[address] Keshia Galvez DO -[facility] Work Phone: Start: 02-27-2025 End: 02-27-2025 ambulatory Farzaneh Martinezer DO Work Phone: -[facility] Start: 02-27-2025 End: 02-27-2025 ambulatory [facility] Facility:[facility] Start: 01-19-2025 ambulatory [facility] Facility :[facility] Start: 01-18-2025 Non-[facility] Start: 01-17-2025 Non-patient / Non-visit Reshma Driscoll [facility] Start: 01-16-2025 Non-patient / Non-visit Reshma Driscoll [facility] Start: 01-16-2025 ambulatory Reshma Americo Facility :[facility] Start: 01-16-2025 End: 01-18-2025 Evaluation and management of inpatient Reshma Driscoll [facility] Work Phone: Start: 01-12-2025 End: 01-12-[address] Pam Koo MD -[facility] Work Phone: Start: 01-12-2025 End: 01-12-2025 ambulatory Farzaneh Meraz DO Work Phone: -[facility] Start: 01-05-2025 End: 01-05-[address] Pam Koo MD -[facility] Work Phone: Start: 01-05-2025 End: 01-05-2025 ambulatory Farzaneh Pereznger DO Work Phone: [facility] Work Phone: Start: 12-29-2024 End: 12-29-2024 ambulatory Farzaneh Kt DO Work Phone: [facility] Work Phone: Start: 12-29-2024 End: 12-29-2024 Patient encounter procedure Reshma COVINGTONM -Laboratory Specimen Work Phone: Start: 12-29-2024 End: 12-29-2024 Patient encounter procedure Reshma COVINGTONM -[facility] Work Phone: Start: 12-29-2024 End: 12-29-2024 ambulatory Farzaneh Kt DO Work Phone: [facility] Work Phone: Start: 12-29-2024 End: 12-29-2024 ambulatory Farzaneh Kt Facility:[facility] Start: 12-23-2024 End: 12-23-2024 ambulatory Farzaneh Kt DO Work Phone: [facility] Work Phone: Start: 12-23-2024 End: 12-23-2024 Patient encounter procedure Justina COVINGTON -[facility] Work Phone: Start: 12-23-2024 End: 12-23-2024 ambulatory Farzaneh Kt Facility:[facility] Start: 12-19-2024 End: 12-19-[address] Keshia Galvez DO -[facility] Work Phone: Start: 12-19-2024 End: 12-19-2024 ambulatory Farzaneh Kt DO Work Phone: [facility] Work Phone: Start: 12-19-2024 End: 12-19-2024 ambulatory Farzaneh Kt Facility:[facility] Start: 12-09-2024 End: 12-09-2024 Patient encounter procedure Justina Guido CNM -[facility] Work Phone: Start: 12-09-2024 End: 12-09-2024 ambulatory Farzaneh Kt DO Work Phone: [facility] Work Phone: Start: 11-25-2024 End: 11-25-[address] Pam Koo MD -[facility] Work Phone: Start: 11-25-2024 End: 11-25-2024 ambulatory Farzaneh Kt DO Work Phone: [facility] Work Phone: Start: 11-16-2024 End: 11-16-[address] Pam Koo MD -[facility] Work Phone: Start: 11-16-2024 End: 11-16-2024 ambulatory Farzaneh Kt Facility:[facility] Start: 11-04-2024 End: 11-04-[address] Moises Mazariegos MD -[facility] Work Phone: Start: 11-04-2024 End: 11-04-2024 ambulatory Farzaneh Kt Facility:[facility] Start: 10-28-2024 End: 10-28-2024 ambulatory Farzaneh Kt DO Work Phone: [facility] Work Phone: Start: 10-28-2024 End: 10-28-[address] Pam Koo MD -Laboratory Work Phone: Start: 10-28-2024 End: 10-28-2024 ambulatory Farzaneh Kt Facility:[facility] Start: 10-26-2024 End: 10-26-[address] Pam Koo MD -[facility] Work Phone: Start: 10-26-2024 End: 10-26-2024 ambulatory Farzaneh Kt Facility:[facility] Start: 10-26-2024 End: 10-26-2024 ambulatory Farzaneh Kt Facility:[facility] Start: 10-12-2024 End: 10-12-[address] Pam Koo MD -[facility] Work Phone: Start: 10-12-2024 End: 10-12-2024 ambulatory Farzaneh Kt Facility:[facility] Start: 09-30-2024 End: 09-30-2024 Patient encounter procedure Justina Guido CN -[facility] Work Phone: Start: 09-30-2024 End: 09-30-2024 ambulatory Farzaneh Kt Facility:[facility] Start: 09-16-2024 End: 09-16-2024 Patient encounter procedure Reshma Driscoll CN -[facility] Work Phone: Start: 09-16-2024 End: 09-16-2024 ambulatory Farzaneh Kt Facility:[facility] Start: 09-05-2024 End: 09-05-2024 ambulatory Farzaneh Kt DO Work Phone: [facility] Work Phone: Start: 09-05-2024 End: 09-05-2024 Patient encounter procedure Reshma COVINGTON -[facility] Start: 09-05-2024 End: 09-05-2024 ambulatory Farzaneh Kt Facility:[facility] Start: 09-02-2024 End: 09-02-2024 ambulatory Farzaneh Kt DO Work Phone: [facility] Work Phone: Start: 09-02-2024 End: 09-02-[address] Pam Koo MD -Ultrasound, [facility] Work Phone: Start: 09-02-2024 End: 09-02-2024 ambulatory Farzaneh Kt Facility:[facility] Start: 08-17-2024 End: 08-17-2024 Patient encounter procedure Caroline Stern SOFTWARE SUPPORT TECHNICIAN-C -[facility] Work Phone: Start: 08-17-2024 End: 08-17-2024 ambulatory Farzaneh Kt Facility:[facility] Start: 08-17-2024 End: 08-17-2024 ambulatory Farzaneh Kt Facility:[facility] Start: 08-01-2024 End: 08-01-2024 Patient encounter procedure Reshma COVINGTON -[facility] Work Phone: Start: 08-01-2024 End: 08-01-2024 ambulatory Farzaneh Kt Facility:[facility] Start: 07-20-2024 End: 07-20-2024 Patient encounter procedure Caroline Stern SOFTWARE SUPPORT TECHNICIAN-C -[facility] Work Phone: Start: 07-20-2024 End: 07-20-2024 ambulatory Farzaneh Kt Facility:[facility] Start: 07-01-2024 End: 07-01-2024 ambulatory WARREN MELENDEZ [facility] Start: 06-29-2024 End: 06-29-[address] Pam Koo MD -[facility] Work Phone: Start: 06-29-2024 End: 06-29-2024 ambulatory Farzaneh Kt Facility:[facility] Start: 06-17-2024 End: 06-17-2024 Patient encounter procedure Justina COVINGTON -[facility] Work Phone: Start: 06-17-2024 End: 06-17-2024 ambulatory Farzaneh Kt Facility:[facility] Start: 06-17-2024 End: 06-17-2024 ambulatory Farzaneh Kt Facility:[facility] Start: 05-25-2024 End: 05-25-2024 Patient encounter procedure Justina Hay CN -Laboratory Work Phone: Start: 05-25-2024 End: 05-25-2024 ambulatory Farzaneh Kt Facility:[facility] Start: 05-23-2024 End: 05-23-2024 Patient encounter procedure Justina Guido CN -Laboratory Work Phone: Start: 09-25-2023 End: 09-25-[address] Warren Melendez Work Phone: [facility] Work Phone: Start: 09-25-2023 End: 09-25-[address] Warren Melendez Work Phone: [facility]-Laboratory, Specimen Work Phone: Start: 09-24-2023 End: 09-24-[address] Warren Melendez Work Phone: [facility] @ Start: 09-21-2023 End: 09-21-[address] Warren Melendez Work Phone: [facility] Work Phone: Start: 09-21-2023 End: 09-21-[address] [facility] Start: 09-10-2023 End: 09-10-[address] Warren Melendez Work Phone: [facility] @ Start: 08-17-2023 End: 08-17-2023 ambulatory [facility] Work Phone: Start: 08-17-2023 End: 08-17-2023 Patient encounter procedure [facility] Work Phone: Start: 08-03-2023 End: 08-03-2023 Patient encounter procedure [facility] Work Phone: Start: 07-29-2023 End: 07-29-2023 ambulatory [facility] Work Phone: Start: 07-29-2023 End: 07-29-2023 Patient encounter procedure [facility] Work Phone: Start: 07-27-2023 End: 07-27-2023 ambulatory [facility] Work Phone: Start: 07-27-2023 End: 07-27-2023 Patient encounter procedure [facility] Work Phone: Start: 05-25-2023 End: 05-25-2023 [facility] Start: 10-30-2022 End: 10-30-[address] Warren Melendez Work Phone: [facility] Start: 10-24-2022 End: 10-24-[address] Warren Melendez Work Phone: [facility] Work Phone: Start: 10-24-2022 End: 10-24-[address] Warren Melendez [facility] Start: 08-20-2022 End: 08-20-[address] Warren Melendez Work Phone: [facility] Start: 07-11-2022 Non-patient / Non-visit Dr. Warren Melendez Work Phone: [facility] Start: 07-10-2022 Non-patient / Non-visit Dr. Warren Melendez Work Phone: [facility] Start: 07-09-2022 Non-patient / Non-visit Dr. Warren Melendez Work Phone: [facility] Start: 07-09-2022 End: 07-11-2022 Evaluation and management of inpatient [facility] Start: 07-03-2022 End: 07-03-[address] Warren Melendez Work Phone: [facility] Start: 06-27-2022 End: 06-27-[address] Warren Melendez Work Phone: [facility] Start: 06-20-2022 End: 06-20-[address] Warren Melendez Work Phone: [facility] Work Phone: Start: 06-20-2022 End: 06-20-[address] Warren Melendez Work Phone: [facility] Start: 06-16-2022 End: 06-16-[address] Warren Melendez Work Phone: [facility] Start: 06-02-2022 End: 06-02-[address] Warren Melendez Work Phone: [facility] Start: 05-23-2022 End: 05-23-[address] Warren Melendez Work Phone: [facility] Start: 05-23-2022 End: 05-23-[address] Warren Melendez Work Phone: [facility] Work Phone: Start: 05-23-2022 End: 05-23-[address] Warren Melendez Work Phone: [facility] Start: 05-09-2022 End: 05-09-[address] Warren Melendez Work Phone: [facility] Start: 04-21-2022 End: 04-21-[address] Warren Melendez Work Phone: [facility] Work Phone: Start: 04-21-2022 End: 04-21-[address] Warren Melendez Work Phone: [facility] Start: 03-25-2022 End: 03-25-[address] Warren Melendez Work Phone: [facility] Start: 02-24-2022 End: 02-24-[address] Warren Melendez Work Phone: [facility] Start: 01-28-2022 End: 01-28-[address] Warren Melendez Work Phone: [facility] Start: 01-08-2022 End: 01-08-[address] [facility] Melendez [facility] Start: 01-08-2022 End: 01-08-[address] Warren Melendez Work Phone: [facility] Start: 01-01-2022 End: 01-01-[address] Warren Melendez Work Phone: [facility] Start: 12-06-2021 End: 12-06-[address] Warren Melendez [facility] Start: 12-05-2021 End: 12-05-[address] Warren Melendez Work Phone: [facility] Start: 11-19-2021 End: 11-19-2021 [facility] Start: 11-07-2021 End: 11-07-[address] Warren Melendez Work Phone: [facility]-Physical Therapy Start: 11-07-2021 Registered Recurring [facility] Start: 10-07-2021 End: 10-07-2021 [facility] Start: 09-11-2021 End: 09-11-2021 Patient encounter procedure [facility] Start: 08-22-2021 Registered Rec[facility]ring [facility] Start: 08-09-2021 End: 08-09-2021 [facility] Start: 10-30-2017 End: 10-30-2017 Ambulatory OPAL COOMBS Facility:[facility] Start: 08-18-2017 End: 08-18-2017 Ambulatory [facility] Facility:[facility] Start: 06-03-2017 Ambulatory DARREN REYES Facility:[facility] Start: 04-23-2017 End: 04-23-2017 Ambulatory PADMA LOPEZ [facility] Start: 04-23-2017 Office outpatient visit 15 minutes Padma Lopez Work Phone: [facility] Start: 03-18-2017 End: 03-18-2017 Ambulatory ADRIÁN FLYNN Facility:[facility] Start: 02-06-2017 End: 02-06-[address] [facility] Facility:[facility] Start: 01-23-2017 End: 01-23-2017 [facility] Start: 01-23-2017 End: 01-23-2017 Ambulatory [facility] Facility:[facility] Start: 01-19-2017 End: 01-19-[address] [facility] Facility:[facility] Procedures Date Procedure Procedure Detail Performing Clinician Start: 01-16-2025 Serologic test for syphilis Farzaneh Meraz DO Work Phone: Start: 01-16-2025 Measurement of pH in vaginal fluid specimen using nitrazine yellow for detection of rupture of amniotic membrane Farzaneh Meraz DO Work Phone: Comment on above: Amniotic fluid prese nt indicates rupture of Membranes. RESULTS CALLED TO Jhon LEROY 01/16/25 Gerard Aviles.REPORT READ BACK BY SAME . Start: 12-29-2024 Beta-hemolytic Strep tococcus culture Farzaneh Martinezer DO Work Phone: Start: 12-23-2024 Ultrasound scan for growth Farzaneh Meraz DO Work Phone: Start: 10-26-2024 Serologic test for syphilis Farzaneh [...] Treatment Date Care Activity Detail Author Start: 02-27-2025 T4 free measurement [facility] Start: 02-27-2025 Thyroid stimulating hormone measurement [facility] Start: 01-18-2025 Documentation procedure [facility] Start: 01-18-2025 [facility] Start: 01-18-2025 Patient discharge [facility] Start: 01-17-2025 Administration of medication [facility] Start: 01-17-2025 Application of ice collar, cap or bag [facility] Start: 01-17-2025 Catheterization of vein [facility] Start: 01-17-2025 Introduction of urinary catheter [facility] Start: 01-17-2025 Measuring intake and output [facility] Start: 01-17-2025 Notification of physician [facility] Start: 01-17-2025 Procedure discontinued [facility] Start: 01-17-2025 Provision of activity privileges [facility] Start: 01-17-2025 Vital signs measurements [facility] Start: 01-17-2025 End: 01-17-2025 [facility] Start: 01-17-2025 Documentation procedure [facility] Start: 01-16-2025 Admission procedure [facility] Start: 12-23-2024 Ultrasound scan for growth [facility] Start: 07-11-2022 Patient discharge [facility] Start: 07-10-2022 End: 07-11-2022 [facility] Start: 07-10-2022 Administration of medication [facility] Start: 07-10-2022 Application of ice collar, cap or bag [facility] Start: 07-10-2022 Catheterization of vein [facility] Start: 07-10-2022 Introduction of urinary catheter [facility] Start: 07-10-2022 Measuring intake and output [facility] Start: 07-10-2022 Notification of physician [facility] Start: 07-10-2022 Procedure discontinued [facility] Start: 07-10-2022 Provision of activity privileges [facility] Start: 07-10-2022 Vital signs measurements [facility] Start: 07-09-2022 Admission procedure [facility] Start: 07-03-2019 Screening for malignant neoplasm of cervix PAP SMEAR [facility] Work Phone: Start: 03-13-2017 Influenza vaccination SEQUENTIAL INFLUENZA VACCINE (#1) [facility] Work Phone: Start: 2004 Vaccination for human papillomavirus HPV VACCINES (1 of 3 - Female 3 Dose Series) [employer] Work Phone: Start: 1993 Tetanus vaccination TETANUS EVERY 10 YR [facility] Work Phone: Liquid based cervica l cytology screening [facility] Patient Education After a Vagina l Delivery (WP) [facility] Work Phone: Patient referral [facility] Work Phone: Streptococcus agalac tiae [Presence] in Unspecified specimen by Organism specific culture [facility] T4 free measurement [facility] Thyroid stimulating hormone measurement [facility] Ultrasound scan for growth [facility] Work Phone: Ultrasound scan for growth [facility] Immunizations Immunization Date Immunization Notes Care Provider Fa cility 04-02-2020 Diptheria,Tetanus,Pe rtuss is Vaccine [facility] 02-09-2020 tetanus toxoid, redu patt diphtheria toxoid, and acellular pertussis vaccine, adsorbed [facility] 02-09-2020 diphtheria, tetanus toxoids and acellular pertussis vaccine, unspecified formulation [facility] Work Phone: Payers Date Payer Category Payer Unknown [id number] 2024 Self-pay [id number] 2024 Unknown [id number] 2023 Unknown [id number] 2017 Unknown [id number] 2016 Private Health Insurance [id number] 2013 Unknown 2013 Medicaid [id number] 2012 Unknown [id number] 1993 Unknown [id number] 2.. [id number] 1993 Unknown [id number] 2.. 840.1.583168.3.579.2.479 Unknown [id number] Unknown [id number] 2.16.8 40.1.862720.3.579.2.462 Unknown [id number] 2.16.8 40.1.196442.3.579.2.462 Unknown [id number] 2.16.8 40.1.851449.3.579.2.462 Unknown [id number] 2.16.8 40.1.604676.3.579.2.462 Unknown [id number] 2.16.8 40.1.603460.3.579.2.462 Unknown [id number] 2.16.8 40.1.774482.3.579.2.462 Unknown [id number] 2.16.8 40.1.385214.3.579.2.462 Unknown [id number] 2.16.8 40.1.863078.3.579.2.462 Unknown [id number] 2.16.8 40.1.021425.3.579.2.462 Unknown [id number] 2.16.8 40.1.783409.3.579.2.462 Unknown [id number] 2.16.8 40.1.001726.3.579.2.462 Unknown [id number] 2.16.8 40.1.408217.3.579.2.462 Unknown [id number] 2.16.8 40.1.800383.3.579.2.462 Unknown [id number] 2.16.8 40.1.886511.3.579.2.462 Unknown [id number] 2.16.8 40.1.653645.3.579.2.462 Unknown [id number] 2.16.8 40.1.584937.3.579.2.462 Unknown [id number] 2.16.8 40.1.008328.3.579.2.462 Unknown [id number] 2.16.8 40.1.582529.3.579.2.462 Unknown [id number] 2.16.8 40.1.720248.3.579.2.462 Unknown [id number] 2.16.8 40.1.281631.3.579.2.462 Unknown [id number] 2.16.8 40.1.215264.3.579.2.462 Unknown [id number] 2.16.8 40.1.758501.3.579.2.462 Unknown [id number] 2.16.8 40.1.263255.3.579.2.462 Unknown [id number] 2.16.8 40.1.780720.3.579.2.462 Unknown [id number] 2.16.8 40.1.250012.3.579.2.462 Unknown [id number] 2.16.8 40.1.836382.3.579.2.462 Unknown [id number] 2.16.8 40.1.976197.3.579.2.462 Unknown [id number] 2.16.8 40.1.744669.3.579.2.462 Unknown [id number] 2.16.8 40.1.810191.3.579.2.462 Unknown [id number] 2.16.8 40.1.381465.3.579.2.462 Unknown [id number] 2.16.8 40.1.427472.3.579.2.462 Unknown [id number] 2.16.8 40.1.462871.3.579.2.462 Unknown [id number] 2.16.8 40.1.670376.3.579.2.462 Unknown [id number] 2.16.8 40.1.923588.3.579.2.462 Unknown [id number] 2.16.8 40.1.921024.3.579.2.462 Social History Date Type Detail Facility Start: 04-23-2017 End: 01-16-2025 Tobacco smoking status MIIS Never smoker [facility] Sex Assigned At Not on file [employer] Phone: Start: 06-17-2021 End: 09-24-2023 Tobacco smoking status [facility] Unknown if ever smoked [facility] Start: 03-14-2020 Non-smoker [facility] Start: 1995 Sex Assigned At Female [facility] Start: 09-15-2024 End: 11-02-2024 Sex Female (finding) [facility] Patient currentl y [facility] Medical Equipment Procedure Code Equipment [...] Diagnostic (Blood Glucose Test) strip Start: 10-28-2024 End: 02-27-2025 Lancets (Droplet Lancets) 30 gauge misc Start: 10-28-2024 End: 02-27-2025 Blood Sugar Diagnostic (Blood Glucose Test) strip Start: 10-28-2024 End: 02-27-2025 Lancets (Droplet Lancets) 30 gauge misc Start: 10-28-2024 End: 02-27-2025 Goals Date Patient Goal Desired Activity /State Mental Status Date Assessment Result Facility 01-17-2025 Cognitive function Appropriate;Leobardo maria [facility] Work Phone: Clinical Notes 09-25-2023 to 02-27-2025 Note Date & Type Note Facility 02-27-2025 Progress note [facility] 01-18-2025 Progress note Note Date/Time January 18, 2025 7:55am [facility] Medical Records Department [address] [place] [address] Progress Note - OBGYN 01/18/25 0754 MR#: [id number] Acct: [id number] Name: CECY GALLEGOS Rep #:[id number] : 1995 29 From: Caroline Stern SOFTWARE SUPPORT TECHNICIAN SOFTWARE SUPPORT TECHNICIAN-C PCP: Farzaneh Meraz DO Status:ADM IN Location: [place] [address] Subjective Subjective Patient doing well without complaints. Tolerating PO. Ambulating and voiding without difficulty. Feeding well. Denies chest pain, shortness of breath, calf pain/swelling, fevers, chills, lightheadedness. Objective Data Objective Data Vital Signs: Vital Signs Temp Pulse Resp BP Pulse Ox O2 Del Method 97.4 F L 60 14 112/75 98 Room Air 01/18/25 04:36 01/18/25 04:36 01/18/25 04:36 01/18/25 04:36 01/18/25 04:36 01/18/25 04:36 Oxygen Delivery Method Room Air Weight: 162 lb 9.6 oz Body Mass Index (BMI) 28.8 Intake & Output: Intake and Output for Last 24 Hours 01/16/25 01/17/25 01/18/25 23:59 23:59 23:59 Intake Total 150 / 150 1369.86 / 1369.86 Output Total 100 / 100 Balance 150 / 150 1269.86 / 1269.86 Lab / Micro Data 01/16/25 17:55 Labs: Laboratory Results - last 24 hr 01/18/25 06:58: POC Glucose 75 Physical Exam Const alert and oriented x3 HEENT normocephalic Eyes PERRL Neck full ROM Resp normal respiratory effort GI soft to palpation GI Narrative: FF below U Assessment & Plan (1) Vaginal delivery: COMMENT: kw boy Homero IAL (2) Gestational diabetes mellitus (GDM) affecting , antepartum: COMMENT: diet controlled, growth US at 36 weeks. delivery by 40 PLAN: Plan s/p PPD # 1 1. routine post delivery care 2. breast feeding- support given 3. rh positive 4. rubella immune 5. glucose stable 6. plans home today 01/18/25754 <Electronically signed by Caroline Stern NP SOFTWARE SUPPORT TECHNICIAN-C> Cosigner Signature (if applicable): CC: ~ Signed [facility] Work Phone: 1(268) 428-564407-09-2025 Progress note [facility] Medical Records Department [address] [place] [address] Progress Note - OBGYN 01/18/25753 MR#: [id number] Acct: [id number] Name: CECY GALLEGOS Rep #:[id number] : 1995 29 From: Caroline Stern NP SOFTWARE SUPPORT TECHNICIAN-C PCP: Farzaneh Meraz DO Status:ADM IN Location: VU704-5 Subjective Subjective Patient doing well without complaints. Tolerating PO. Ambulating and voiding without difficulty. Feeding well. Denies chest pain, shortness of breath, calf pain/swelling, fevers, chills, lightheadedness. Objective Data Objective Data Vital Signs: Vital Signs Temp Pulse Resp BP Pulse Ox O2 Del Method 97.4 F L 60 14 112/75 98 Room Air 01/18/25 04:36 01/18/25 04:36 01/18/25 04:36 01/18/25 04:36 01/18/25 04:36 01/18/25 04:36 Oxygen Delivery Method Room Air Weight: 162 lb 9.6 oz Body Mass Index (BMI) 28.8 Intake & Output: Intake and Output for Last 24 Hours 01/16/25 01/17/25 01/18/25 23:59 23:59 23:59 Intake Total 150 / 150 1369.86 / 1369.86 Output Total 100 / 100 Balance 150 / 150 1269.86 / 1269.86 Lab / Micro Data 01/16/25 17:55 Labs: Laboratory Results - last 24 hr 01/18/25 06:58: POC Glucose 75 Physical Exam Const alert and oriented x3 HEENT normocephalic Eyes PERRL Neck full ROM Resp normal respiratory effort GI soft to palpation GI Narrative: FF below U Assessment & Plan (1) Vaginal delivery: COMMENT: kw miki [place] (2) Gestational diabetes mellitus (GDM) affecting , antepartum: COMMENT: diet controlled, growth US at 36 weeks. delivery by 40 PLAN: Plan s/p PPD # 1 1. routine post delivery care 2. breast feeding- support given 3. rh positive 4. rubella immune 5. glucose stable 6. plans home today 01/18/25 0755 Cosigner Signature (if applicable): CC: ~ Signed [facility]07-08-2025 Discharge summary Author Reshma Driscoll [facility] Note Date/Time January 17, 2025 2:30a m [facility] Medical Records Department [address] [place] [address] Instructions for Home/Discharge Instructions 01/17/25 0230 MR#: [id number] Acct: [id number] Name: CECY GALLEGOS Rep #:[id number] : 1995 29 From: Reshma Driscoll CNM PCP: Farzaneh Meraz DO Status:ADM IN Discharge Instructions Diet Discharge Diet: No restrictions DC O2, CPAP, BIPAP needs Home O2 Discharge instructions: No Dressing / Incision Discharge Activity: Return to Normal Activity May resume sexual activity in: 6-8 weeks Dressing / Incision Call your doctor if you observe: Fever of 101 or Higher, Coldness, Increased Pain, Numbness or Tingling, Change in Color, Inability to urinate, Inability to have a bowel movement, Using more than 1 pad per hour, Shortness of breath, Dizziness, Fainting spells, Swelling in the ankles, Chest pain, Increased palpitations (irregular heartbeat), Calf discomfort and Uncontrolled pain Follow Up Care Please Follow Up With: Reshma Driscoll CNM When: Please call the office to schedule your follow up appointment in 6 weeks. If you had high blood pressure please call to schedule an appointment in 2 weeks. Test Results: Test results from this visit will be discussed in further detail at your follow- up appointment, if applicable. Discharge Plan Admission Admit Date/Time: 01/16/25 17:07 Attending Provider: Reshma Driscoll Primary Care Provider: Farzaneh Meraz Discharge Orders/Prescriptions Prescriptions: No Action PNV #18-thcp-dytrz acid-omega3 30 mg iron-10 mg iron-1 mg capsule 1 cap PO DAILY aspirin [Adult Aspirin Regimen] 81 mg tablet,delayed release (DR/EC) 81 mg PO DAILY (DME) Blood Glucose Test Strip See Rx Instructions .ROUTE .MEDSUPPLY Qty: 120 6RF Rx Instructions: Check blood sugars Fasting and 2 hours after breakfast, lunch, and dinner. (DME) blood-glucose meter Misc See Rx Instructions .ROUTE .MEDSUPPLY Qty: 1 0RF Rx Instructions: As directed (DME) lancets [Droplet Lancets] 30 gauge misc See Rx Instructions .ROUTE .MEDSUPPLY Qty: 200 6RF Rx Instructions: Check blood sugars fasting and 2 hours after breakfast, lunch, and supper. levothyroxine 50 mcg tablet 50 mcg PO DAILY Qty: 90 3RF Referrals / Follow Up: Farzaneh Meraz DO [Primary Care Provider] - 01/17/25229<Electronically signed by Reshma Driscoll CNM>Reshma Driscoll CNM CC: Farzaneh Meraz DO ~ Signed [facility] Work Phone: 1(185) 670-850507-08-2025 Discharge summary [facility] Medical Records Department [address] [place] [id number] Instructions for Home/Discharge Instructions 01/17/25229 MR#: [id number] Acct: [id number] Name: CECY GALLEGOS Rep #:[id number] : 1995 29 From: Reshma Driscoll CNM PCP: Farzaneh Meraz DO Status:ADM IN Discharge Instructions Diet Discharge Diet: No restrictions DC O2, CPAP, BIPAP needs Home O2 Discharge instructions: No Dressing / Incision Discharge Activity: Return to Normal Activity May resume sexual activity in: 6-8 weeks Dressing / Incision Call your doctor if you observe: Fever of 101 or Higher, Coldness, Increased Pain, Numbness or Tingling, Change in Color, Inability to urinate, Inability to have a bowel movement, Using more than 1 pad per hour, Shortness of breath, Dizziness, Fainting spells, Swelling in the ankles, Chest pain, Increased palpitations (irregular heartbeat), Calf discomfort and Uncontrolled pain Follow Up Care Please Follow Up With: Reshma Driscoll CNM When: Please call the office to schedule your follow up appointment in 6 weeks. If you had high blood pressure please call to schedule an appointment in 2 weeks. Test Results: Test results from this visit will be discussed in further detail at your follow- up appointment, if applicable. Discharge Plan Admission Admit Date/Time: 01/16/25 17:07 Attending Provider: Reshma Driscoll Primary Care Provider: Farzaneh Meraz Discharge Orders/Prescriptions Prescriptions: No Action PNV #45-fqwp-gmghl acid-omega3 30 mg iron-10 mg iron-1 mg capsule 1 cap PO DAILY aspirin [Adult Aspirin Regimen] 81 mg tablet,delayed release (DR/EC) 81 mg PO DAILY (DME) Blood Glucose Test Strip See Rx Instructions .ROUTE .MEDSUPPLY Qty: 120 6RF Rx Instructions: Check blood sugars Fasting and 2 hours after breakfast, lunch, and dinner. (DME) blood-glucose meter Misc See Rx Instructions .ROUTE .MEDSUPPLY Qty: 1 0RF Rx Instructions: As directed (DME) lancets [Droplet Lancets] 30 gauge misc See Rx Instructions .ROUTE .MEDSUPPLY Qty: 200 6RF Rx Instructions: Check blood sugars fasting and 2 hours after breakfast, lunch, and supper. levothyroxine 50 mcg tablet 50 mcg PO DAILY Qty: 90 3RF Referrals / Follow Up: Farzaneh Meraz DO [Primary Care Provider] - 01/17/25 023Angelita Driscoll CNM CC: Farzaneh Meraz DO ~ Signed [facility]07-08-2025 Procedure note [facility] Medical Records Department [address] [place] [address] OB Vaginal Delivery 01/17/25224 MR#: [id number] Acct: [id number] Name: CECY GALLEGOS Rep #:[id number] : 1995 29 From: Reshma Driscoll CNM PCP: Farzaneh Meraz DO Status:ADM IN Location: CW882-3 Assessment & Plan (1) Vaginal delivery: COMMENT: kw miki Valentin I[place] (2) Positive GBS test: COMMENT: treat in labor (3) Gestational diabetes mellitus (GDM) affecting , antepartum: COMMENT: diet controlled, growth US at 36 weeks. delivery by 40 (4) Supervision of high-risk : QUALIFIERS: Trimester: second trimester Qualified Code(s): O09.92- Supervision of high risk , unspecified, second trimester COMMENT: PRR , GERMAN 01/20/25, PC Angel Luis, Icard Tayo (5) : QUALIFIERS: Weeks of gestation: 38 weeks Qualified Code(s): Z3A.38 - 38 weeks gestation of COMMENT: NIPT low risk, carrier and ntd screen declined. anatomy reviewed. (6) History of recurrent miscarriages: COMMENT: on progesterone until 10-12 weeks (7) Chiari malformation type I: COMMENT: s/p neurosurgery consult. no regional anesthesia. 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 Vaginal Delivery Information Procedure Performed: Spontaneous Vaginal Delivery Surgeon/Practitioner: Reshma Driscoll Date of Procedure: 01/17/25 Pre-Procedure Diagnosis: see problem list Post-Procedure Diagnosis: same Type of anesthesia: None Estimated Blood Loss: 100 Time of Delivery: 02:03 Findings Description of procedure: Progressed well to 10cm dilated and made steady progress with effective maternalpushing. Delivered the head in FABIAN presentation. The head was delivered atraumatically and a loose nuchal cord was identified and was easily reduced over the 's head. The anterior and posterior shoulders deliveredwithout complication followed by the rest of the infant and the was placed on thematernal abdomen. Delayed cord clamping was employed for approximately 3 minutes. Cord was clamped and cut and gentle traction was applied to the cord and the placenta delivered spontaneously. Immediately following, it was noted rosenda intact with a 3 vessel cord. Uterine bleeding stable. The perineum and vaginawere inspected and noted to have a first degree laceration which was repaired with 3-0 Vicryl in theusual fashion. EBL was 100cc. Patient and tolerated delivery well. Apgars 7/9. Dr Perera notified of vaginal delivery and orders reviewed. Physician agrees with current plan of care. 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 Post Vaginal Deli Medications given after delivery: IV Pitocin Episiotomy Description: None Laceration: 1st degree Complication Complications: No Multi Select Codes Urinary/Genital Urinary/Genital CPT Codes: 70820 Vaginal Delivery [facility] 01/17/25 0229 Cosigner Signature (if applicable): CC: CARON Driscoll; Farzaneh Meraz DO~ Signed ADDENDUM by CARON Driscoll on 01/17/25 at 0230 Addendum 01/17/25 0230 Cosigner Signature (if applicable): cc: CARON Driscoll; Farzaneh Meraz DO ~* Signed [facility]07-08-2025 Progress note Author Reshma Driscoll [facility] Note Date/Time January 16, 2025 11:14 pm [facility] Medical Records Department [address] [place] [address] Progress Note 01/16/25 2213 MR#: [id number] Acct: [id number] Name: CECY GALLEGOS Rep #:[id number] : 1995 29 From: Reshma Driscoll CNM PCP: Farzaneh Meraz DO Status:ADM IN Location: QJ833-2 Progress Note Coping well with contractions current tracing: FHT: 140 Moderate variability reactive no decelerations category I tracing [place]: 2-6 Contractions Membranes:ruptured for clear SVE:4/80/-2 A/P: Continue with position changes Titrate pitocin per protocol Epidural per anesthesia PCN for GBS prophylaxis Anticipate Dr Perera aware of above assessment and agrees with plan of care Assessment & Plan Assessment/Plan (1) Positive GBS test: (2) Gestational diabetes mellitus (GDM) affecting , antepartum: (3) Supervision of high-risk : QUALIFIERS: Trimester: second trimester Qualified Code(s): O09.92- Supervision of high risk , unspecified, second trimester (4) : QUALIFIERS: Weeks of gestation: 38 weeks Qualified Code(s): Z3A.38 - 38 weeks gestation of (5) History of recurrent miscarriages: (6) Chiari malformation type I: (7) Spontaneous rupture of amniotic membranes: (8) MTHFR mutation: (9) 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 01/16/25 2314 <Electronically signed by Reshma Driscoll CNM> Reshma Driscoll CNM Cosigner Signature (if applicable): CC: ~ Signed [facility] Work Phone: 1(394) 413-359607-07-2025 Progress note [facility] Medical Records Department [address] [place] [address] Progress Note 01/16/253 MR#: [id number] Acct: [id number] Name: CECY GALLEGOS Rep #:[id number] : 1995 29 From: Reshma Driscoll CNM PCP: Farzaneh Meraz DO Status:ADM IN Location: CO489-2 Progress Note Coping well with contractions current tracing: FHT: 140 Moderate variability reactive no decelerations category I tracing [place]: 2-6 Contractions Membranes:ruptured for clear SVE:/-2 A/P: Continue with position changes Titrate pitocin per protocol Epidural per anesthesia PCN for GBS prophylaxis Anticipate Dr Perera aware of above assessment and agrees with plan of care Assessment & Plan Assessment/Plan (1) Positive GBS test: (2) Gestational diabetes mellitus (GDM) affecting , antepartum: (3) Supervision of high-risk : QUALIFIERS: Trimester: second trimester Qualified Code(s): O09.92- Supervision of high risk , unspecified, second trimester (4) : QUALIFIERS: Weeks of gestation: 38 weeks Qualified Code(s): Z3A.38 - 38 weeks gestation of (5) History of recurrent miscarriages: (6) Chiari malformation type I: (7) Spontaneous rupture of amniotic membranes: (8) MTHFR mutation: (9) 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 01/16/25 2314 Reshma Driscoll CNM Cosigner Signature (if applicable): CC: ~ Signed [facility]07-07-2025 History and physical note Author Reshma Driscoll [facility] Note Date/Time January 16, 2025 5:21p m [facility] Medical Records Department [address] [place] [address] H&P Exam - LIVE AMMUNITION INSPECTOR 01/16/25 1714 MR#: [id number] Acct: [id number] Name: CECY GALLEGOS Rep #:[id number] : 1995 29 From: Reshma Driscoll CNM PCP: Farzaneh Meraz DO Status:ADM IN Location: OD098-2 HPI - General General Date of Admission: 01/16/25 Date of Service: 01/16/25 HPI Narrative CECY GALLEGOS, is a 29 F 38.6 who presents to unit for possible SROM. ROM cameback positive and decision made for admission. 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 SAB (spontaneous ) Thyroiditis (spontaneous vaginal delivery) Thyroid disorder GBS (group B Streptococcus carrier), +RV culture, currently Thyroid disease affecting Supervision of high-risk Amenorrhea ASCUS of cervix with negative high risk HPV 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 Home Medications ?Medication ?Instructions ?Recorded ?Last Taken ?Type vitamin#30 30 mg iron-10 1 cap PO DAILY pregn irene 04/07/19 01/16/25 12:00 History mg iron-folic acid 1 mg-omg3 capsule aspirin 81 mg tablet,delayed 81 mg PO DAILY 12/22/23 0 01/16/25 09:00 History release (Adult Aspirin Regimen) blood sugar diagnostic (Blood #120 10/28/24 Unknown Rx Glucose Test strips) blood-glucose meter #1 ea 10/28/24 Unknown Rx lancets 30 gauge (Droplet Lancets) #200 10/28/24 Un known Rx levothyroxine 50 mcg tablet 50 mcg PO DAILY #90 tabs 0 12/06/24 01/16/25 07:00 Rx Allergy/AdvReac Type Severity Reaction Status Date / Time banana Allergy Mild RASH Verified 01/16/25 16:55 Latex, Natural Rubber Allergy Mild Rash Verified 01/16/25 16:55 Family History Father , BLOOD CLOT BLOOD CLOT Surgical History S/P dilation and curettage (~01/11/24) H/O wisdom tooth extraction Social History (Updated 01/12/25 @ 08:35 by [...] 1-2 times per week duration: 15-30 minutes/day femi/congregation: [employer] seatbelt use: always do you feel safe at home: Yes additional social history: [place] History 7 Elective abortions Hx Para 2 [...] live - full term 6# Male none [facility] Hanane [place] 07/10/22 Annabelle Rouse 37 live - full term 7#11oz Female none [facility] Hay [place] 01/11/24 spontaneous SM Delivery Date: 04/29/20 Last Updated by: Su MULLINS Delivery Date: 07/10/22 Last Updated by: Su MULLINS IOL Delivery Date: 01/11/24 Last Updated by: Keira Chen RN D&C Visit Details Expected Delivery Route/Plan Labor Preferences- [...] notes/problem list details OB Flowsheet Initial Weight: 128 lb Date -?-?-?-?-?-?-?-?-?-?-?-?- EGA Weight BP Urine Prot -?-?-?-?-?-?-?-?-?-?-?-?- Glucose FHR FuHt Pres Dilation -?-?-?-?-?-?-?-?-?-?-?-?- Effaced St Visit Note 06/17/24 -?-?-?-?-?-?-?-?-?-?-?-?- 9w 0d 128 lb 4 oz (+4 oz) 127/84 -?-?-?-?-?-?--?-?-?-?-?-?- 168 -?-?-?-?-?-?-?-?-?-?-?-?- LC- CRL 1.9cm co n [...] go od fm nor egualr ctx 11/16/24 -?-?-?--?-?-?-?-?-?-?-?-?- 30w 5d 148 lb 2 oz (+20 lb 2 oz) 117/72 Negative -?-?-?-?-?-?-?-?-?-?-?-?- Negative 135 31 -?-?-?-?-?-?-?-?-?-?-?-?- SM- SM- no vb lof good fm no reu galr ctx dicsussed nutrition education need to balance out eating carbs postprandials all great but fastings borderline. 11/25/24 -?-?-?-?-?-?-?-?-?-?-?-?- 32w 0d 146 lb 6 oz (+18 lb 6 oz) 111/69 Trace -?-?-?-?-?-?-?-?-?-?-?-?- Negative 145 32 -?-?-?-?-?-?--?-?-?-?-?-?- SM- no vb lof go od fm [...] od fm n oreuglar ctx bS controlled 01/12/25 -?-?-?-?-?-?-?-?-?-?-?-?- 38w 6d 158 lb (+30 lb) 108/67 Negative -?-?-?-?-?-?-?-?-?-?-?-?- Negative 140 38 Cephalic 2 -?-?-?-?-?-?-?-?-?-?-?-?- Sm- no vb lof go od fm n oregular ctx plan IOL 40 weeks NST FHR Rate Baby A Baseline: 135 Variability:: Moderate Accelerations:: 15 x 15 Decelerations:: None NST Reactive:: Yes FHR Category:: Category I Uterine Activity:: occasional ROS Constitutional Constitutional: Denies change in weight, fatigue, fever(s), headache(s), poor appetite or weakness Eyes Eyes: Denies blurry vision, change in vision, floaters, seeing flashes or spots in vision ENT HEENT: Denies dizziness, headache(s), loss taste/smell or sore throat Cardiovascular Cardiovascular: Denies chest pain, dizziness, dyspnea, irregular heart rhythm, lightheadedness, palpitations or rapid heart rate Respiratory/Chest Respiratory/Chest: Denies change in mental status, chest tightness, cough, dyspnea or breast pain Gastrointestinal Gastrointestinal: Denies anorexia, chewing difficulty, constipation, diarrhea or weight changes Genitourinary Genitourinary: Denies difficulty urinating, dysuria, flank pain, genital pain, urinary frequency or urinary urgency Musculoskeletal Musculoskeletal: Denies back pain, difficulty walking, extremity pain, joint pain, muscle cramps or muscle weakness Integumentary Integumentary: Denies lesions or unusual bruising Neurologic Neurologic: Denies abnormal movements, abnormal speech, dizziness, numbness, seizure-like activity, syncope or weakness Psychiatric Psychiatric: Denies behavioral changes, change in appetite, confusion, depression, homicidal ideation, suicidal ideation or suicidal thoughts Endocrine Endocrinology: Denies excessive sweating, polydipsia or polyuria Hematologic/Lymphatic Hematologic/Lymphatic: Denies anemia Allergic/Immunologic Allergic/Immunologic: Denies itchy eyes, lip swelling, throat swelling, tongue swelling or wheezing Vital Signs Vital Signs Vital Signs: 01/16/25 16:30 01/16/25 16:30 01/16/25 16:34 Temperature Temperature Source Pulse Rate Respiratory Rate 16 Blood Pressure 122/75 H BP Systolic 122 BP Diastolic 75 Pulse Ox 98 01/16/25 16:34 01/16/25 16:34 01/16/25 16:34 Temperature Temperature Source Temporal Pulse Rate 74 Respiratory Rate 16 Blood Pressure BP Systolic BP Diastolic Pulse Ox 01/16/25 16:34 01/16/25 16:34 Temperature 98.2 F Temperature Source Pulse Rate Respiratory Rate Blood Pressure BP Systolic BP Diastolic Pulse Ox 98 Weight Weight: 162 lb 9.6 oz Body Mass Index (BMI) 28.8 Physical Exam Const alert, oriented x3 and no apparent distress General Appearance: cooperative Orientation / Consciousness: awake HEENT normocephalic Neck full ROM Lymph Lymphatic: no lymphadenopathy noted Chest inspection of chest normal Resp normal respiratory effort and normal air movement Effort and Inspection: able to speak in complete sentences and symmetric chest movement GI soft to palpation and non-tender Inspection: gravid Palpation: soft; Negative for tender external exam normal Manual OB Exam: dilated 3, effaced 70 and station -2 Back/Spine normal to inspection Extremity normal to inspection and full ROM Skin no rashes or lesions noted Psych mental status grossly normal Appearance: grossly normal Speech: normal speech Labs Labs Labs: Blood Type A POSITIVE Antibody Screen NEGATIVE Hct 33.7 % (37-47) L Hgb 11.7 g/dL (12.0-15.0) L Obstetrics Ultrasound Syphilis Total Ab Nonreactive (Nonreactive) Rubella IgG Antibody Reactive (Nonreactive) Hep Bs Antigen Non-Reactive (Nonreactive) Hepatitis C Antibody Non-Reactive (Nonreactive) Chlamydia DNA (RORY) Negative (Negative) N.gonorrhoeae DNA ([facility]) Negative (Negative) HIV 1&2 Antibody Nonreactive (Nonreactive) Glucose 1 Hr 50 gm 152 mg/dL (70-140) H Gest Glucose Tolerance MG/DL Rhogam given: No Miscellaneous Test Assessment & Plan (1) Spontaneous rupture of amniotic membranes: COMMENT: clear fluid PLAN: Patient presents IAL, plan expectant management for , pitocin/AROM PRN if needed. Pain management: plans no epidural. GBS positive plan IV PCN. Management of any complications: none I have reviewed the [facility] and made any clinically relevant updates. Dr Perera aware of assessment, plan and agrees with above (2) Positive GBS test: COMMENT: treat in labor (3) Gestational diabetes mellitus (GDM) affecting , antepartum: COMMENT: diet controlled, growth US at 36 weeks. 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 anatomy reviewed. (7) History of recurrent miscarriages: COMMENT: on progesterone until 10-12 weeks (8) Chiari malformation type I: COMMENT: s/p neurosurgery consult. no regional anesthesia. 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: (10) ASCUS of cervix with negative high risk HPV: COMMENT: repeat pap 3 yrs, 09/2023 Neg pap/Neg HPV Charges/Coding Multi Select Codes Urinary/Genital Urinary/Genital CPT Codes: No Charge 01/16/25 1721 <Electronically signed by Reshma Driscoll CNM> Cosigner Signature (if applicable): CC: CARON Driscoll; Farzaneh Meraz DO~ Signed [facility] Work Phone: 1(684) 963-732807-07-2025 History and physical note [facility] Medical Records Department [address] [place] [address] H&P Exam - LIVE AMMUNITION INSPECTOR 01/16/25 1714 MR#: [id number] Acct: [id number] Name: CECY GALLEGOS Rep #:[id number] : 1995 29 From: Reshma Driscoll CNM PCP: Farzaneh Meraz DO Status:ADM IN Location: CP760-0 HPI - General General Date of Admission: 01/16/25 Date of Service: 01/16/25 HPI Narrative CECY GALLEGSO, is a 29 F 38.6 who presents to unit for possible SROM. ROM cameback positive and decision made for admission. 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 SAB (spontaneous ) Thyroiditis (spontaneous vaginal delivery) Thyroid disorder GBS (group B Streptococcus carrier), +RV culture, currently Thyroid disease affecting Supervision of high-risk Amenorrhea ASCUS of cervix with negative high risk HPV 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 Home Medications ?Medication ?Instructions ?Recorded ?Last Taken ?Type vitamin#30 30 mg iron-10 1 cap PO DAILY pregn irene 04/07/19 01/16/25 12:00 History mg iron-folic acid 1 mg-omg3 capsule aspirin 81 mg tablet,delayed 81 mg PO DAILY 12/22/23 0 01/16/25 09:00 History release (Adult Aspirin Regimen) blood sugar diagnostic (Blood #120 ea 10/28/24 Unknown Rx Glucose Test strips) blood-glucose meter #1 ea 10/28/24 Unknown Rx lancets 30 gauge (Droplet Lancets) #200 ea 10/28/24 Un known Rx levothyroxine 50 mcg tablet 50 mcg PO DAILY #90 tabs 0 12/06/24 01/16/25 07:00 Rx Allergy/AdvReac Type Severity Reaction Status Date / Time banana Allergy Mild RASH Verified 01/16/25 16:55 Latex, Natural Rubber Allergy Mild Rash Verified 01/16/25 16:55 Family History Father , BLOOD CLOT BLOOD CLOT Surgical History S/P dilation and curettage (~01/11/24) H/O wisdom tooth extraction Social History (Updated 01/12/25 @ 08:35 by [...] 1-2 times per week duration: 15-30 minutes/day femi/congregation: [employer] seatbelt use: always do you feel safe at home: Yes additional social history: [place] History 7 Elective abortions Hx Para 2 [...] live - full term 6# Male none [facility] Hanane [place] 07/10/22 Annabelle Rouse 39 live - full term 7#11oz Female none [facility] Hay Tayo 01/11/24 spontaneous SM Delivery Date: 04/29/20 Last Updated by: Su MULLINS Delivery Date: 07/10/22 Last Updated by: Su MULLINS IOL Delivery Date: 01/11/24 Last Updated by: Keira Chen RN D&C Visit Details Expected Delivery Route/Plan Labor Preferences- [...] notes/problem list details OB Flowsheet Initial Weight: 128 lb Date -?-?-?-?-?-?-?-?-?-?-?-?- EGA Weight BP Urine Prot -?-?-?-?-?-?-?-?-?-?-?-?- Glucose FHR FuHt Pres Dilation -?-?-?-?-?-?-?-?-?-?-?-?- Effaced St Visit Note 06/17/24 -?-?-?-?-?-?-?-?-?-?-?-?- 9w 0d 128 lb 4 oz (+4 oz) 127/84 -?-?-?-?-?-?--?-?-?-?-?-?- 168 -?-?-?-?-?-?-?-?-?-?-?-?- LC- CRL 1.9cm co n with LMP. on progesterone for hx of multiple losses. no bleeding. declines nipt.tsh/free t3/4 added. 06/29/24 -?-?-?-?-?-?-?-?-?-?-?-?- 10w 5d 127 lb (-16 oz) 121/78 Negative -?-?-?-?-?-?-?-?-?-?-?-?- Negative 168 -?-?-?-?-?-?-?-?-?-?-?-?- SM- no vb lof cr amping 07/20/24 -?-?-?-?-?-?-?-?-?-?-?-?- 13w 5d 128 lb 8 oz (+8 oz) 112/74 Negative -?-?-?-?-?-?-?-?-?-?-?-?- Negative 163 -?-?-?-?-?-?-?-?-?-?-?-?- -No VB. Nausea resolved. Br US confirm FHT 08/01/24 -?-?-?-?-?-?-?-?-?-?-?-?- 15w 3d 131 lb (+3 lb) 129/80 Negative -?-?-?-?-?-?-?-?-?-?-?-?- Negative 146 -?-?-?-?-?-?-?-?-?-?-?-?- KW- no vb/crazaid ng. movement and FHT with US today. [...] go od fm nor egualr ctx 11/16/24 -?-?-?--?-?-?-?-?-?-?-?-?- 30w 5d 148 lb 2 oz (+20 lb 2 oz) 117/72 Negative -?-?-?-?-?-?-?-?-?-?-?-?- Negative 135 31 -?-?-?-?-?-?-?-?-?-?-?-?- SM- SM- no vb lof good fm no reu galr ctx dicsussed nutrition education need to balance out eating carbs postprandials all great but fastings borderline. 11/25/24 -?-?-?-?-?-?-?-?-?-?-?-?- 32w 0d 146 lb 6 oz (+18 lb 6 oz) 111/69 Trace -?-?-?-?-?-?-?-?-?-?-?-?- Negative 145 32 -?-?-?-?-?-?--?-?-?-?-?-?- SM- no vb lof go od fm [...] od fm n oreuglar ctx bS controlled 01/12/25 -?-?-?-?-?-?-?-?-?-?-?-?- 38w 6d 158 lb (+30 lb) 108/67 Negative -?-?-?-?-?-?-?-?-?-?-?-?- Negative 140 38 Cephalic 2 -?-?-?-?-?-?-?-?-?-?-?-?- Sm- no vb lof go od fm n oregular ctx plan IOL 40 weeks NST FHR Rate Baby A Baseline: 135 Variability:: Moderate Accelerations:: 15 x 15 Decelerations:: None NST Reactive:: Yes FHR Category:: Category I Uterine Activity:: occasional ROS Constitutional Constitutional: Denies change in weight, fatigue, fever(s), headache(s), poor appetite or weakness Eyes Eyes: Denies blurry vision, change in vision, floaters, seeing flashes or spots in vision ENT HEENT: Denies dizziness, headache(s), loss taste/smell or sore throat Cardiovascular Cardiovascular: Denies chest pain, dizziness, dyspnea, irregular heart rhythm, lightheadedness, palpitations or rapid heart rate Respiratory/Chest Respiratory/Chest: Denies change in mental status, chest tightness, cough, dyspnea or breast pain Gastrointestinal Gastrointestinal: Denies anorexia, chewing difficulty, constipation, diarrhea or weight changes Genitourinary Genitourinary: Denies difficulty urinating, dysuria, flank pain, genital pain, urinary frequency orurinary urgency Musculoskeletal Musculoskeletal: Denies back pain, difficulty walking, extremity pain, joint pain, muscle cramps ormuscle weakness Integumentary Integumentary: Denies lesions or unusual bruising Neurologic Neurologic: Denies abnormal movements, abnormal speech, dizziness, numbness, seizure-like activity,syncope or weakness Psychiatric Psychiatric: Denies behavioral changes, change in appetite, confusion, depression, homicidal ideation, suicidal ideation or suicidal thoughts Endocrine Endocrinology: Denies excessive sweating, polydipsia or polyuria Hematologic/Lymphatic Hematologic/Lymphatic: Denies anemia Allergic/Immunologic Allergic/Immunologic: Denies itchy eyes, lip swelling, throat swelling, tongue swelling or wheezing Vital Signs Vital Signs Vital Signs: 01/16/25 16:30 01/16/25 16:30 01/16/25 16:34 Temperature Temperature Source Pulse Rate Respiratory Rate 16 Blood Pressure 122/75 H BP Systolic 122 BP Diastolic 75 Pulse Ox 98 01/16/25 16:34 01/16/25 16:34 01/16/25 16:34 Temperature Temperature Source Temporal Pulse Rate 74 Respiratory Rate 16 Blood Pressure BP Systolic BP Diastolic Pulse Ox 01/16/25 16:34 01/16/25 16:34 Temperature 98.2 F Temperature Source Pulse Rate Respiratory Rate Blood Pressure BP Systolic BP Diastolic Pulse Ox 98 Weight Weight: 162 lb 9.6 oz Body Mass Index (BMI) 28.8 Physical Exam Const alert, oriented x3 and no apparent distress General Appearance: cooperative Orientation / Consciousness: awake HEENT normocephalic Neck full ROM Lymph Lymphatic: no lymphadenopathy noted Chest inspection of chest normal Resp normal respiratory effort and normal air movement Effort and Inspection: able to speak in complete sentences and symmetric chest movement GI soft to palpation and non-tender Inspection: gravid Palpation: soft; Negative for tender external exam normal Manual OB Exam: dilated 3, effaced 70 and station -2 Back/Spine normal to inspection Extremity normal to inspection and full ROM Skin no rashes or lesions noted Psych mental status grossly normal Appearance: grossly normal Speech: normal speech Labs Labs Labs: Blood Type A POSITIVE Antibody Screen NEGATIVE Hct 33.7 % (37-47) L Hgb 11.7 g/dL (12.0-15.0) L Obstetrics Ultrasound Syphilis Total Ab Nonreactive (Nonreactive) Rubella IgG Antibody Reactive (Nonreactive) Hep Bs Antigen Non-Reactive (Nonreactive) Hepatitis C Antibody Non-Reactive (Nonreactive) Chlamydia DNA (RORY) Negative (Negative) N.gonorrhoeae DNA (RORY) Negative (Negative) HIV 1&2 Antibody Nonreactive (Nonreactive) Glucose 1 Hr 50 gm 152 mg/dL (70-140) H Gest Glucose Tolerance MG/DL Rhogam given: No Miscellaneous Test Assessment & Plan (1) Spontaneous rupture of amniotic membranes: COMMENT: clear fluid PLAN: Patient presents IAL, plan expectant management for , pitocin/AROM PRN if needed. Pain management: plans no epidural. GBS positive plan IV PCN. Management of any complications: none I have reviewed the [facility] and made any clinically relevant updates. Dr Perera aware of assessment, plan and agrees with above (2) Positive GBS test: COMMENT: treat in labor (3) Gestational diabetes mellitus (GDM) affecting , antepartum: COMMENT: diet controlled, growth US at 36 weeks. 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 anatomy reviewed. (7) History of recurrent miscarriages: COMMENT: on progesterone until 10-12 weeks (8) Chiari malformation type I: COMMENT: s/p neurosurgery consult. no regional anesthesia. 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: No Is patient in pain?: No [...] tablet 500 mg PO QDAY #30 tabs 04/2 5/25 06/26/25 Rx levothyroxine 50 mcg tablet 50 mcg PO DAILY #90 tabs 0 12/06/24 01/05/25 Rx Last Menstrual Period: 04/15/24 Zika: Zika virus screening: Negative : No PFSH [facility] Medical History History of miscarriage History of [...] 1-2 times per week duration: 15-30 minutes/day femi/congregation: [employer] seatbelt use: always do you feel safe at home: Yes 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 anatomy reviewed. (6) History of recurrent miscarriages: Status: Acute Comment: on progesterone until 10-12 weeks (7) Chiari malformation type I: Status: Chronic Comment: s/p neurosurgery consult. no regional anesthesia. 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 (9) ASCUS of cervix with negative high risk HPV: Status: Acute Comment: repeat pap 3 yrs, 09/2023 Neg pap/Neg HPV Orders: Orders POC Urinalysis 2 Dip (Clinic) Today 01/05/25 Yoli javier MD> Date _ Pam Koo MD Cosigner Signature: Date (if applicable) CC: ~ [facility] [id number] Progress [facility] [address], [address] [place] [address] OFFICE VISIT Date of Service: 12/29/24 MR#: [id number] Acct: [id number] Name: CECY GALLEGOS Rep #: [id number] : 1995 Provider: CARON Driscoll Age/Sex: 29/F Location: [facility] Status: Signed Intake Vital Signs 11/16/24 09:19 12/19/24 14:13 12/29/24 15:32 12/29/24 15:36 Height 5 ft 3 in 5 ft 3 in 5 ft 3 in 5 ft 3 in Weight: 157 lb 8 oz BMI 27.8 BP 121/69 H Intake Visit Reasons: 37 wk ob Chief Complaint: 37 Week 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 Driver Required: No Is patient in pain?: No [...] 1-2 times per week duration: 15-30 minutes/day femi/congregation: [employer] seatbelt use: always do you feel safe at home: Yes 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 Nausea [...] due for tsh. can not have epidural. 06/19/25 -?-?-?-?-?-?-?-?-?-?-?-?- 36w 6d 157 lb 8 oz [...] Symptoms of Preeclampsia and Infant Feeding No ROS Const Reports system reviewed [...] PRR , GERMAN 01/20/25, PC Angel Luis, Icard [place] (3) MTHFR mutation: Status: Acute Comment: heterzygous C677Tt A129BC, asa 81 mg (4) Gestational diabetes mellitus (GDM) affecting , antepartum: Status: Acute Comment: diet controlled, growth US at 36 weeks. delivery by 40 (5) History of recurrent miscarriages: Status: Acute Comment: on progesterone until 10-12 weeks (6) Chiari malformation type I: Status: Chronic Comment: s/p neurosurgery consult. no regional anesthesia. 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 [place] appropriate handout given. 12/29/24 1553 s CARON> Date _ Reshma Americo CARON Cosigner Signature: Date (if applicable) CC: ~ [facility]06-19-2025 Progress note Author Reshma Driscoll [facility] Services Note Date/Time December 29, 2024 3:53 pm [facility] [address], [address] [place] [address] OFFICE VISIT Date of Service: 12/29/24 MR#: [id number] Acct: [id number] Name: CECY GALLEGOS Rep #: [id number] : 1995 Provider: CARON Driscoll Age/Sex: 29/F Location: [facility] Status: Signed Intake Vital Signs 11/16/24 09:19 12/19/24 14:13 12/29/24 15:32 12/29/24 15:36 Height 5 ft 3 in 5 ft 3 in 5 ft 3 in 5 ft 3 in Weight: 157 lb 8 oz BMI 27.8 BP 121/69 H Intake Visit Reasons: 37 wk ob Chief Complaint: 37 Week OB Otr 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 Driver Required: No Is patient in pain?: No [...] tablet 500 mg PO QDAY #30 tabs 10/1212/29/24 Rx levothyroxine 50 mcg tablet 50 mcg [...] 1-2 times per week duration: 15-30 minutes/day femi/congregation: [employer] seatbelt use: always do you feel safe at home: Yes 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 delivery by 40 (5) History of recurrent miscarriages: Status: Acute Comment: on progesterone until 10-12 weeks (6) Chiari malformation type I: Status: Chronic Comment: s/p neurosurgery consult. no regional anesthesia. 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 GA appropriate handout given. 12/29/24 0452 <Electronically signed by Reshma forbes CNM> Date _ Reshma Driscoll CNM Cosigner Signature: Date (if applicable) CC: ~ [facility] Work Phone: 1(256) 290-321706-13-2025 Radiology Diagnostic study note [facility] Imaging Services [address] [place] [address] OB Limited With Biometrics MR#: [id number] Acct: [id number] Name: CECY GALLEGOS Rep #: [id number] : 1995 F 29 From: Kendall Nunes MD PCP: Farzaneh Meraz DO Status: REG CLI Study:OB Limited With Biometrics Date of Exam : 12/23/24 Exam# [id number] Ordering Dr: Justina Guido CNM PROCEDURE: OB [...] of 36 weeks and 1day. Reading Location: [place] CC: CARON Guido; Farzaneh Meraz DO ~ Hot Car Operator: Signed [facility]06-09-2025 Progress [facility] [address], [address] [place] [address] OFFICE VISIT Date of Service: 12/19/24 MR#: [id number] Acct: [id number] Name: CECY GALLEGOS Rep #: [id number] : 1995 Provider: Dr. 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 no bleeding. declines nipt.tsh/free t3/4 added. 12/18/24 -?-?-?-?-?-?-?-?-?-?-?-?- 10w 5d 127 lb (-16 oz) 121/78 Negative -?-?-?-?-?-?-?-?-?-?-?-?- Negative 168 -?-?-?-?-?-?-?-?-?-?-?-?- SM- no vb lof cr amping 07/20/24 -?-?-?-?-?-?-?-?-?-?-?-?- 13w 5d 128 lb 8 oz (+8 oz) 112/74 Negative -?-?-?-?-?-?-?-?-?-?-?-?- Negative 163 -?-?-?-?-?-?-?-?-?-?-?-?- -No VB. Nausea [...] consult. no regional anesthesia. 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 (8) ASCUS of cervix with negative high risk HPV: Status: Acute Comment: repeat pap 3 yrs, 09/2023 Neg pap/Neg HPV Orders: Orders POC Urinalysis 2 Dip (Clinic) Today 12/19/24 1445 e Kana DO> Date _ Keshia Galvez DO Cosigner Signature: Date (if applicable) CC: ~ [facility]06-09-2025 Progress note Author Keshia Roger [facility] Note Date/Time December 19, 2024 2:45p [facility] [address] [place] [address], [address] [place] [address] OFFICE VISIT Date of Service: 12/19/24 MR#: [id number] Acct: [id number] Name: CECY GALLEGOS Rep #: [id number] : 1995 Provider: Dr. 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 anatomy reviewed. (5) History of recurrent miscarriages: Status: Acute Comment: on progesterone until 10-12 weeks (6) Chiari malformation type I: Status: Chronic Comment: s/p neurosurgery consult. no regional anesthesia. 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 (8) ASCUS of cervix with negative high risk HPV: Status: Acute Comment: repeat pap 3 yrs, 09/2023 Neg pap/Neg HPV Orders: Orders POC Urinalysis 2 Dip (Clinic) Today 12/19/24 4938 <Electronically signed by Keshia Myers DO> Date _ Keshia Galvez DO [facility] Signature: Date (if applicable) CC: ~ [facility] Work Phone: 1(175) 106-781205-16-2025 Progress [facility] [address] [place] [address], [address] [place] [address] OFFICE VISIT Date of Service: 11/25/24 MR#: [id number] Acct: [id number] Name: CECY GALLEGOS Rep #: [id number] : 1995 Provider: Dr. 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 Cheliin [...] Supervision of high risk in second trimester O Trimester: second trimester 32 weeks gestation of [...] PRR , GERMAN 01/20/25, PC Angel Luis, Icard [place] (4) : Status: Acute Qualifiers: Weeks of gestation: 32 weeks Qualified Code(s): Z3A.32 - 32 weeks gestation of Comment: NIPT low risk, carrier and ntd screen declined. anatomy reviewed. (5) History of recurrent miscarriages: Status: Acute Comment: on progesterone until 10-12 weeks (6) Chiari malformation type I: Status: Chronic Comment: s/p neurosurgery consult. no regional anesthesia. 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 November 042024 3:31pm Gestational diabetes mellitu s (GDM) affecting , antepartum inactive November 04, 2024 3:31pm ASCUS of cervix with negativ e high risk HPV acute November 16, 2024 9: 08am History of recurrent miscarriages acute November 16, 2024 9: 08am MTHFR mutation acute November 16, 2 025 9:08am Chiari malformation type I chronic November 16, 2024 9:08am 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 November 16, 2024 9:08am Gestational diabetes mellitu s (GDM) affecting , antepartum inactive November 16, 2024 9: 08am inactive November 16, 2024 9:08am Supervision of high-risk inactive November 16, 2024 9: 08am ASCUS of cervix with negativ e high risk HPV acute November 25, 2024 1 0:02am History of recurrent miscarriages acute November 25, 2024 1 0:02am MTHFR mutation acute November 25, 2024 10:02am Chiari malformation type I chronic November 25, 2024 10:02am 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 November 10:02am Gestational diabetes mellitu s (GDM) affecting , antepartum inactive November 25, 2024 1 0:02am inactive November 25, 2024 10:02am Supervision of high-risk inactive November 25, 2024 1 0:02am ASCUS of cervix with negativ e high risk HPV acute December 09, 2024 9 :56am History of recurrent miscarriages acute December 09, 2024 9 :56am MTHFR mutation acute December 09, 2024 9:56am Chiari malformation type I chronic December 09, 2024 9:56am 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 November 9:56am Gestational diabetes mellitu s (GDM) affecting , antepartum inactive December 09, 2024 9 :56am inactive December 09, 2024 9:56am Supervision of high-risk inactive December 09, 2024 9 :56am ASCUS of cervix with negativ e high risk HPV acute December 19, 2024 2 :07pm History of recurrent miscarriages acute December 19, 2024 2 :07pm MTHFR mutation acute December 19, 2024 2:07pm Chiari malformation type I chronic December 19, 2024 2:07pm 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 December 2:07pm Gestational diabetes mellitu s (GDM) affecting , antepartum inactive December 19, 2024 2 :07pm inactive December 19, 2024 2:07pm Supervision of high-risk inactive December 19, 2024 2 :07pm ASCUS of cervix with negativ e high risk HPV acute December 29, 2024 3:27pm History of recurrent miscarriages acute December 29, 2024 3:27pm MTHFR mutation acute December 29, 2024 3:27pm Chiari malformation type I chronic December 29, 2024 3:27pm 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 December 3:27pm Gestational diabetes mellitu s (GDM) affecting , antepartum inactive December 29, 2024 3:27pm inactive December 29 3:27pm Supervision of high-risk inactive December 29, 2024 3:27pm ASCUS of cervix with negativ e high risk HPV acute January 05, 2025 11:34am History of recurrent miscarriages acute January 05, 2025 11:34am MTHFR mutation acute January 05, 2025 11:34am Chiari malformation type I chronic January 05, 2025 11:34am 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 December 11:34am Gestational diabetes mellitu s (GDM) affecting , antepartum inactive January 05, 2025 11:34am Positive GBS test inactive January 052024 11:34am inactive January 05 11:34am Supervision of high-risk inactive January 05, 2025 11:34am ASCUS of cervix with negativ e high risk HPV acute January 12, 2025 8 :27am History of recurrent miscarriages acute January 12, 2025 8 :27am MTHFR mutation acute January 12, 2025 8:27am Chiari malformation type I chronic January 12, 2025 8:27am 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 January 8:27am Gestational diabetes mellitu s (GDM) affecting , antepartum inactive January 12, 2025 8 :27am Positive GBS test inactive January 8:27am inactive January 12, 2025 8:27am Supervision of high-risk inactive January 12, 2025 8 :27am ASCUS of cervix with negativ e high risk HPV acute January 16, 2025 5 :07pm History of recurrent miscarriages acute January 16, 2025 5 :07pm MTHFR mutation acute January 16, 2025 5:07pm Vaginal delivery acute January 5:07pm Chiari malformation type I chronic January 16, 2025 5:07pm 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 January 5:07pm Gestational diabetes mellitu s (GDM) affecting , antepartum inactive January 16, 2025 5 :07pm Positive GBS test inactive January 5:07pm inactive January 16, 2025 5:07pm Supervision of high-risk inactive January 16, 2025 5 :07pm Spontaneous rupture of amniotic membranes deleted January 16 5:07pm Routine Follow-Up noneact janet February 27, 2025 9:37am [facility] Work Phone: 1(185) 477-874403-21-2025 Evaluation note* Diagnosis Onset Date Resolution Status [...] due to Erick's thyroiditis chronic January 8:27am ASCUS of cervix with negativ e high risk HPV acute January 16, 2025 5 :07pm Gestational diabetes mellitu s (GDM) affecting , antepartum acute January 16, 2025 5 :07pm History of recurrent miscarriages acute January 16, 2025 5 :07pm MTHFR mutation acute January 16, 2025 5:07pm Positive GBS test january 5:07pm acute January 16, 2025 5:07pm Spontaneous rupture of amnio tic membranes acute January 16, 2025 5 :07pm Supervision of high-risk acute January 16, 2025 5 :07pm Vaginal delivery acute January 5:07pm Chiari malformation type I chronic January 16, 2025 5:07pm 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 January 5:07pm [facility] Work Phone: 1(952) 295-307503-07-2025 Evaluation note* Diagnosis Onset Date Resolution Status [...] 2024 11:20am 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 september 11:20am ASCUS of cervix with negativ e [...] due to Erick's thyroiditis chronic December 2:07pm [facility] Work Phone: 1(898) 590-717003-07-2025 Evaluation note* Diagnosis Onset Date Resolution Status [...] due to Erick's thyroiditis chronic December 3:27pm [facility] Work Phone: 1(568) 300-472503-07-2025 Evaluation note* Diagnosis Onset Date Resolution Status [...] due to Erick's thyroiditis chronic December 11:34am [facility] Work Phone: 1(537) 859-845403-07-2025 Evaluation note* Diagnosis Onset Date Resolution Status [...] 9: 08am MTHFR mutation acute November 16, 025 9:08am acute November 16, 2024 9:08am [...] due to Erick's thyroiditis chronic January 8:27am [facility] Work Phone: 1(588) 358-657502-21-2025 Radiology Diagnostic study note [facility] Imaging Services [address] [place], [place] [address] OB Anatomy w/ Transvaginal MR#: [id number] Acct: [id number] Name: CECY GALLEGOS Rep #: [id number] : 1995 F 29 From: Kendall Nunes MD PCP: Farzaneh Meraz DO Status: REG CLI Study:OB Anatomy w/ Transvaginal Date of Exam : 09/02/24 Exam# [id number] Ordering Dr: Caroline Stern SOFTWARE SUPPORT TECHNICIAN SOFTWARE SUPPORT TECHNICIAN-C PROCEDURE: OB ANATOMY W/ TRANSVAGINAL REASON FOR [...] 4 mm choroid plexus cyst. Reading Location: [facility] CC: CONNIE Stern; DO Bibi Hernandez Hot Car Operator: Signed [facility]02-05-2025 Evaluation note* Diagnosis Onset Date [...] 9: 08am MTHFR mutation acute November 16, 025 9:08am acute November 16, 2024 9:08am [...] due to Erick's thyroiditis chronic November 9:56am [facility] Work Phone: 1(512) 608-123201-20-2025 Evaluation note* Diagnosis Onset Date Resolution Status [...] due to Erick's thyroiditis chronic November 10:02am [facility] Work Phone: 1(555) 788-129301-08-2025 Evaluation note* Diagnosis Onset Date Resolution Status [...] to Erick's thyroiditis chronic October 262024 10:25am [facility] Work Phone: 1(218) 965-958612-06-2024 Evaluation note* Diagnosis Onset Date Resolution Status [...] e high risk HPV acute June 29, 2 024 10:03am History of recurrent miscarriages acute June 29, 2 024 10:03am MTHFR mutation acute June 122023 [...] Erick's thyroiditis chronic August 17, 2024 2:56pm [facility] Work Phone: 1(391) 347-458803-15-2024 NotePap Smear Specimen AdequacyMar 2023 12:56pmComment.Satisfactory for evaluation. Endocervical and/or squamous metaplasticcells (endocervical component)are present.[facility] A#[id number] Health Atrium Medical CenterComment on above:Satisfactory for evaluation. Endocervical and/or squamous metaplasticcells (endocervical component)are present.Evaluation noteNo assessment information availableWBerger Hospital Work Phone: Evaluation note* Diagnosis Onset Date Resolution Status Nausea/vomiting in acute acute Supervision of high-risk acute Thyroid disease affecting acute Chiari malformation type I c [facility] Work Phone: Evaluation note* Diagnosis Onset Date [...] antepartum acute Chiari malformation type I c [facility] Work Phone: Evaluation note* Diagnosis Onset Date [...] affecting acute Chiari malformation type I c [facility] Work Phone: Evaluation note* Diagnosis Onset Date [...] acute Chiari malformation type I c onic [facility] Work Phone: Evaluation note* Diagnosis [...] acute Chiari malformation type I c hronic [facility] Work Phone: Evaluation note* Diagnosis [...] acute Chiari malformation type I c hronic [facility] Work Phone: Evaluation note* Diagnosis Onset Date Resolution Status ASCUS of cervix with negative high risk HPV acute Thyroid disease affecting acute Chiari malformation type I c hronic ASCUS of cervix with negative high risk HPV acute normal course acu te Thyroid disease affecting acute Chiari malformation type I c hronic Thyroiditis acute [facility] Work Phone: Evaluation note* Diagnosis Onset Date Resolution Status Pre-conception counseling ac [place] Thyroiditis acute Encounter for routine gynecological examination noneactive Cervical cancer screening ac [facility] Work Phone: Hospital Discharge instructionsAmbulatory Orders* Physical Therapy Referral Location: None Selected [facility] Work Phone: Progress note Author Pam Koo [facility] Note Date/Time November 25, 2024 10:28 am [facility] [address] [place] [address], [address] [place] [address] OFFICE VISIT Date of Service: 11/25/24 MR#: [id number] Acct: [id number] Name: CECY GALLEGOS Rep #: [id number] : 1995 Provider: Dr. 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 movement and FHT with US today. [...] , GERMAN 01/20/25, PC Angel Luis, Annabelle [place] (4) : Status: Acute Qualifiers: Weeks of gestation: 32 weeks Qualified Code(s): Z3A.32 - 32 weeks gestation of Comment: NIPT low risk, carrier and ntd screen declined. anatomy reviewed. (5) History of recurrent miscarriages: Status: Acute Comment: on progesterone until 10-12 weeks (6) Chiari malformation type I: Status: Chronic Comment: s/p neurosurgery consult. no regional anesthesia. 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 (8) ASCUS of cervix with negative high risk HPV: Status: Acute Comment: repeat pap 3 yrs, 09/2023 Neg pap/Neg HPV Orders: Orders POC Urinalysis 2 Dip (Clinic) Today 11/25/24 1028 <Electronically signed by Pam javier MD> Date _ Pam Koo MD Cosigner Signature: Date (if applicable) CC: ~ [facility] Work Phone: Progress note Author Pam Koo [facility] Note Date/Time January 05, 2025 11:5 9am [facility] [address] [place] [address], [address] [place] [address] OFFICE VISIT Date of Service: 01/05/25 MR#: [id number] Acct: [id number] Name: CECY GALLEGOS Rep #: [id number] : 1995 Provider: Dr. Kalyan Koo MD Age/Sex: 29/F Location: [facility] Status: Signed Intake Vital Signs 12/09/24 10:07 12/19/24 14:13 12/29/24 15:36 01/05/25 11:35 01/05/25 11:37 Height 5 ft 3 in 5 ft 3 in 5 ft 3 in 5 ft 3 in 5 ft 3 in Weight: 159 lb 6 oz BMI 28.2 BP 132/86 H Intake Visit Reasons: 38 WK ob *only SM/LC Otr 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 Driver Required: No Is patient in pain?: No [...] tablet 500 mg PO QDAY #30 tabs /2 12/0401/05/25 Rx levothyroxine 50 mcg tablet 50 mcg [...] 1-2 times per week duration: 15-30 minutes/day femi/congregation: [employer] seatbelt use: always do you feel safe at home: Yes 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 Date Name GA/Weeks Outcome Route Bth Weight Gen Labor Lgth Anesthesia Del Locatn Provider FOB Unknown 03/2019 SAB spontaneous Unknown 07/2021 chemical Unknown 08/03/2023 miscarriage 6 spontaneous 04/29/20 [place] 39 live - full term 6# Male none [facility] Hanane [place] 07/10/22 Annabelle Padma 39 live - full term 7#11oz Female none [facility] Hay [place] 01/11/24 spontaneous SM Delivery Date: [...] oz) 112/74 Negative -?-?-?-?-?-?-?-?-?-?-?-?- Negative 163 -?-?-?-?-?-?-?-?-?-?-?-?- -No VB. Nausea [...] PRR , GERMAN 01/20/25, PC Angel Luis, Icard [place] (5) : Status: Acute Qualifiers: Weeks of gestation: 37 weeks Qualified Code(s): Z3A.37 - 37 weeks gestation of Comment: NIPT low risk, carrier and ntd screen declined. anatomy reviewed. (6) History of recurrent miscarriages: Status: Acute Comment: on progesterone until 10-12 weeks (7) Chiari malformation type I: Status: Chronic Comment: s/p neurosurgery consult. no regional anesthesia. 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 (9) ASCUS of cervix with negative high risk HPV: Status: Acute Comment: repeat pap 3 yrs, 09/2023 Neg pap/Neg HPV Orders: Orders POC Urinalysis 2 Dip (Clinic) Today 01/05/25 1156 <Electronically signed by Pam javier MD> Date _ Pam Koo MD Cosigner Signature: Date (if applicable) CC: ~ [facility] Work Phone: Progress note Author Keshia Roger [facility] Note Date/Time February 27, 2025 9: 55am [facility] [address] [place] [address], [address] [place] [address] OFFICE VISIT Date of Service: 02/27/25 MR#: [id number] Acct: [id number] Name: CECY GALLEGOS Rep #: [id number] : 1995 Provider: Dr. Magnolia Galvez DO Age/Sex: 29/F Location: [facility] Status: Signed Intake Vital Signs 01/16/25 16:57 02/27/25 09:39 02/27/25 09:42 Height 5 ft 3 in 5 ft 3 in 5 ft 3 in BP 124/78 H Intake Visit Reasons: visit (obstetrics) Otr 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 Driver Required: No Is patient in pain?: No Allergies banana Allergy (Mild, Verified 02/27/25 09:37) RASH Latex, Natural Rubber Allergy (Mild, Verified 02/27/25 09:37) Rash Medications ?Medication ?Instructions ?Recorded ?Confirmed ?Type vitamin#30 30 mg iron-10 1 cap PO DAILY pregn irene 04/07/19 02/27/25 History mg iron-folic acid 1 mg-omg3 capsule levothyroxine 50 mcg tablet 50 mcg PO DAILY #90 tabs 0 12/06/24 02/27/25 Rx : Yes PFSH Medical History Gestational diabetes History of miscarriage Non-smoker Supervision of high-risk History of miscarriage, currently Early stage of 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 SAB (spontaneous [...] 1-2 times per week duration: 15-30 minutes/day femi/congregation: [employer] seatbelt use: always do you feel safe at home: Yes additional social history: Tayo History 7 Elective abortions Hx Para 3 Spontaneous abortions 4 Hx # Term Pregnancies Ectopic pregnancies Hx # Pregnancies Multiple births # of living children 3 Past Pregnancies Del. Date Name GA/Weeks Outcome Route Bth Weight Infant Gen Labor Lgth Anesthesia Del Locatn Provider FOB Unknown 03/2019 SAB spontaneous Unknown 07/2021 chemical Unknown 08/03/2023 miscarriage 6 spontaneous 04/29/20 [place] 39 live - full term 6# Male none [facility] Hanane [place] 07/10/22 Annabelle Padma 39 live - full term 7#11oz Female none [facility] Hay [place] 01/11/24 spontaneous SM 01/17/25 [place] 39 live - full term Male none [facility] KW Tayo Delivery Date: 04/29/20 Last Updated by: Su MULLINS Delivery Date: 07/10/22 Last Updated by: Su MULLINS IOL Delivery Date: 01/11/24 Last Updated by: Keira Chen RN D&C Delivery Date: 01/17/25 Last Updated by: Keira Chen RN See problem list for complications, and KW IAL boy Depression Screen PHQ-2/9 PHQ-2 Over the last 2 weeks, how often have you been bothered by any of the following problems? 1. Little interest or pleasure in doing things: not at all 2. Feeling down, depressed, or hopeless: not at all Total score: 0 Post HPI Routine Follow-Up: Details: CECY GALLEGOS is a 29 year old who presents for her post visit. Feeding: Breast Menses resumed: No [place] since delivery: No Emotional Support: Yes Last Pap:: 2023 Control Method: condoms. ROS Const Reports system reviewed and no additional complaints, except as documented GI Reports system reviewed and no additional complaints, except as documented, Denies bloating, Denies constipation, Denies nausea and Denies vomiting Reports system reviewed and no additional complaints, except as documented, Denies abnormal vaginal bleeding, Denies pelvic pain, Denies sexual dysfunction,Denies urinary incontinence, Denies urinary hesitancy, Denies urinary urgency and Denies vaginal discharge Skin/Breast Reports system reviewed and no additional complaints, except as documented and Reports as per HPI Psych Reports as per HPI Exam Const General: cooperative, healthy appearing, comfortable and no acute distress HENMT Head: normal to inspection Neck Neck: normal visual inspection and no lymphadenopathy Thyroid: thyroid normal Chest Breast inspection: normal inspection of the breasts and normal inspection of theaxillae Breast palpation: normal palpation of the breasts and normal palpation of the axillae Resp Effort & Inspection: normal respiratory effort GI Inspection: normal to inspection Palpation: soft, no hepatosplenomegaly and nontender General: bladder normal to palpation External Female Exam: normal external appearance and normal appearance of the urethra Urethra: normal appearance of the urethra Speculum Exam - Vagina: normal appearance of the vagina and normal vaginal discharge Speculum Exam - Cervix: normal appearance of the cervix Bimanual Exam- Vagina & Uterus: normal bimanual exam, uterine size normal, bladder normal to palpation, uterine shape normal and non-tender Bimanual Exam- Adnexa, other: normal adnexae and normal Pelvic Support: normal Skin General: no rashes or lesions noted Coding Level of Care Code No Charge Diagnoses Routine Follow-Up Z39.2 Assessment and Plan Assessment and Plan (1) Routine Follow-Up: Plan: Cervical cancer screening: pap up to date Contraceptive plans: condoms Complications: none wants to see pelvic floor PT for prolapse symptoms when walking and running. Follow up for annual exams or sooner if indicated. Orders: Orders Thyroid Stim Hormone (TSH) Today E03.8 - Other specified hypothyroidism, E06.3 - Autoimmune thyroiditis Free T4 Today E03.8 - Other specified hypothyroidism, E06.3 - Autoimmune thyroiditis 02/27/25 0955 <Electronically signed by Kehsia Myers DO> Date _ Keshia Andre Roger DO [facility] Signature: Date (if applicable) CC: ~ [facility] Work Phone: Reason for referral (narrative)No reason for referral information availableWBerger Hospital Work Phone: Assessments Diagnosis Irregular bleeding - Primary Irregular menstrual cycle Summary Purpose Family History No Family History Records Found Relationship Condition Age at Onset Recorded Date/T sanju father Unknown Advance Directives No Advanced Directives Records Found Advance Directive Response Recorded Date/ Time Living Will No April 29 1:05pm Power of Regional Maintenance Manager No April 29, 2020 1:05pm Advance Directive Response Recorded Date/ Time Living Will No January 08, 2022 8:09am Power of Regional Maintenance Manager No January 08 8:09am Advance Directive Response Recorded Date/ Time Living Will No January 08, 2022 7:09am Power of Regional Maintenance Manager No January 08 7:09am Advance Directive Response Recorded Date/ Time Living Will No July 09 8:30pm Power of Regional Maintenance Manager No July 09, 2022 8:30pm Advance Directive Response Recorded Date/ Time Living Will No July 09 9:30pm Power of Regional Maintenance Manager No July 09, 2022 9:30pm Advance Directive Response Recorded Date/ Time Living Will No January 08, 2024 12:15pm Power of Regional Maintenance Manager No January 07 12:15pm Advance Directive Response Recorded Date/ Time Living Will No July 09 9:30pm Do you have a Healthcare Power of Regional Maintenance Manager? No July 09, 2022 9:30pm Advance Directive Response Recorded Date/ Time Living Will No July 09 9:30pm Do you have a Healthcare Power of Regional Maintenance Manager? No July 09, 2022 9:30pm Do you have a Healthcare Power of Regional Maintenance Manager? No January 16, 2025 6:01pm Chief Complaint and Reason for Visit Chief [...] Chief Complaint EORDER E-ORDER NEED ORDER Annual (ASSEMBLER KNIFE) E ORDERS Annual (ASSEMBLER KNIFE) Reason for Visit Pre-conception couns eling Thyroiditis Encounter for routine gynecological examination Cervical cancer screening Chief Complaint EORDER E-ORDER NEED ORDER Annual (ASSEMBLER KNIFE) E ORDERS Annual (ASSEMBLER KNIFE) ANNUAL PAP Reason for Visit Pre-conception couns [...] 29, 2024 10:03am Supervision of high-risk Decem 2023 10:03am Chiari malformation type I June 10:03am 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 June 29, 2024 10:03am History of recurrent miscarriages 2024 4:03pm MTHFR mutation July 20, 2024 4: 03pm July 20, 2024 4: 03pm Supervision of high-risk Janua 2024 4:03pm Chiari malformation type I July [...] Admit Date History of recurrent miscarriages Juluar y 2024 4:03pm MTHFR mutation July 20, 2024 [...] 2024 2 :56pm SUPERVISION OF HIGH RISK u ho2024 12:26pm 22 WK OB September 16, [...] 2024 1:28pm History of recurrent miscarriages ua ry 2024 2:56pm MTHFR mutation August 17, 2024 2 :56pm August 17, 2024 2 :56pm Supervision of high-risk Febru [email or web address] 2:56pm Chiari malformation type I August [...] 10:25am Chiari malformation type I October 26 10:25am 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 [...] 2024 2 :56pm SUPERVISION OF HIGH RISK u [email or web address] 12:26pm 22 WK OB September 16, [...] 2024 2 :56pm Supervision of high-risk Febru [email or web address] 2:56pm Chiari malformation type I August [...] diabetes mellitu s (GDM) affecting , antepartum May 7th, 2025 9:08am History of recurrent miscarriages November 9:08am [...] Complaint Admit Date SUPERVISION OF HIGH RISK 2024 12:26pm 22 [...] 30, 2024 10:51am Chiari malformation type I March 21st, 2 025 10:51am Hypothyroidism due to Erick's [...] Erick's thyroi ditis January 12, 2025 8:27am Chief Complaint Admit Date HEARTBEAT CK September 30, 2024 10: 51am [...] wk ob January 12, 2025 8:27a m VAGINAL DELIVERY January 16, 2025 5:07p m LABOR January 16, 2025 5:16p m VAGINAL DELIVERY January 17, 2025 2:25a m VAGINAL DELIVERY January 18, 2025 7:54a m Reason for Visit Admit Date ASCUS [...] Erick's thyroi ditis January 12, 2025 8:27am ASCUS of cervix with negative high risk HPV January 16, 2025 5:07pm Gestational diabetes mellitu s (GDM) affecting , antepartum January 16, 2025 5:07pm History of recurrent miscarriages January 162024 5:07pm MTHFR mutation January 16, 2025 5:07p m Positive GBS test January 16, 2025 5:07p m January 16, 2025 5:07p m Spontaneous rupture of amniotic membrane s January 16, 2025 5:07pm Supervision of high-risk January 16, 2025 5:07pm Vaginal delivery January 16, 2025 5:07p m Chiari malformation type I January 16 5:07pm 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 January 16, 2025 5:07pm Chief Complaint Admit Date 1 Y FU November 04, 2024 3:3 [...] wk ob January 12, 2025 8:27a m VAGINAL DELIVERY January 16, 2025 5:07p m LABOR January 16, 2025 5:16p m VAGINAL DELIVERY January 17, 2025 2:25a m VAGINAL DELIVERY January 18, 2025 7:54a m visit (obstetrics) February 9:37am Reason for Visit Admit Date 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 November 04, 2024 3:31pm Gestational diabetes mellitu s (GDM) affecting , antepartum November 04, 2024 3:31pm ASCUS of cervix with negative high risk HPV November 16, 2024 9:08am History of recurrent miscarriages November 9:08am MTHFR mutation November 16, 2024 9:08am Chiari malformation type I November 16, 2024 9:08am 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 November 16, 2024 9:08am Gestational diabetes mellitu s (GDM) affecting , antepartum November 16, 2024 9:08am November 16, 2024 9:08am Supervision of high-risk November 162024 9:08am ASCUS of cervix with negative high risk HPV November 25, 2024 10:02am History of recurrent miscarriages November 252024 10:02am MTHFR mutation November 25, 2024 10:02 am Chiari malformation type I November 25 10:02am 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 November 25, 2024 10:02am Gestational diabetes mellitu s (GDM) affecting , antepartum November 25, 2024 10:02am November 25, 2024 10:02 am Supervision of high-risk November 102024 10:02am ASCUS of cervix with negative high risk HPV December 09, 2024 9:56am History of recurrent miscarriages December 092024 9:56am MTHFR mutation December 09, 2024 9:56a m Chiari malformation type I December 09 9:56am Hypothyroidism due to Reick's thyroi ditis December 09, 2024 9:56am Gestational diabetes mellitu s (GDM) affecting , antepartum December 09, 2024 9:56am December 09, 2024 9:56a m Supervision of high-risk November 122024 9:56am ASCUS of cervix with negative high risk HPV December 19, 2024 2:07pm History of recurrent miscarriages December 192024 2:07pm MTHFR mutation December 19, 2024 2:07p m Chiari malformation type I December 19 2:07pm 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 December 19, 2024 2:07pm Gestational diabetes mellitu s (GDM) affecting , antepartum December 19, 2024 2:07pm December 19, 2024 2:07p m Supervision of high-risk December 19, 2024 2:07pm ASCUS of cervix with negative high risk HPV December 29, 2024 3:27pm History of recurrent miscarriages December 112024 3:27pm MTHFR mutation December 29, 2024 3:27 pm Chiari malformation type I December 29 3:27pm 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 December 29, 2024 3:27pm Gestational diabetes mellitu s (GDM) affecting , antepartum December 29, 2024 3:27pm December 29, 2024 3:27 pm Supervision of high-risk December 29, 2024 3:27pm ASCUS of cervix with negative high risk HPV January 05, 2025 11:34am History of recurrent miscarriages December 122024 11:34am MTHFR mutation January 05, 2025 11:3 4am Chiari malformation type I January 05 11:34am 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 January 05, 2025 11:34am Gestational diabetes mellitu s (GDM) affecting , antepartum January 05, 2025 11:34am Positive GBS test January 05, 2025 11:3 4am January 05, 2025 11:3 4am Supervision of high-risk January 05, 2025 11:34am ASCUS of cervix with negative high risk HPV January 12, 2025 8:27am History of recurrent miscarriages January 122024 8:27am MTHFR mutation January 12, 2025 8:27a m Chiari malformation type I January 12 8:27am 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 January 12, 2025 8:27am Gestational diabetes mellitu s (GDM) affecting , antepartum January 12, 2025 8:27am Positive GBS test January 12, 2025 8:27a m January 12, 2025 8:27a m Supervision of high-risk January 12, 2025 8:27am ASCUS of cervix with negative high risk HPV January 16, 2025 5:07pm History of recurrent miscarriages January 162024 5:07pm MTHFR mutation January 16, 2025 5:07p m Vaginal delivery January 16, 2025 5:07p m Chiari malformation type I January 16 5:07pm 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 January 16, 2025 5:07pm Gestational diabetes mellitu s (GDM) affecting , antepartum January 16, 2025 5:07pm Positive GBS test January 16, 2025 5:07p m January 16, 2025 5:07p m Supervision of high-risk January 16, 2025 5:07pm Spontaneous rupture of amniotic membrane s January 16, 2025 5:07pm Routine Follow-Up February 9:37am Additional Source Comments INFORMATION SOURCE (unrecogn ized section and content) DATE CREATED AUTHOR 12/31/2017 [facility] DATE CREATED AUTHOR AUTHOR'S ORGANIZ ATION 01/05/2018 [facility] DATE CREATED AUTHOR AUTHOR'S ORGANIZ ATION 01/05/2018 [facility] DATE CREATED AUTHOR AUTHOR'S ORGANIZ ATION 01/06/2018 [facility] DATE CREATED AUTHOR AUTHOR'S ORGANIZ ATION 01/06/2018 [facility] DATE CREATED AUTHOR AUTHOR'S ORGANIZ ATION 07/11/2024 [facility] DATE CREATED AUTHOR AUTHOR'S ORGANIZ ATION 05/24/2025 [facility] Goals (unrecognized section and content) Goals may [...] MD Primary Care Provider Active Caroline Stern SOFTWARE SUPPORT TECHNICIAN, SOFTWARE SUPPORT TECHNICIAN-C Attending Provider, Referring Provider Active Team Status: Active Member Role Status Dates Dr. Warren Melendez MD Primary Care Provider Active Caroline Jarred SOFTWARE SUPPORT TECHNICIAN, SOFTWARE SUPPORT TECHNICIAN-C Attending Provider, Referring Provider Active Team Status: [...] Farzaneh BAILEYC, DO Primary Care Provider Active Team Status: [...] 17, 2024 End: June 17, 2024 Farzaneh MATIAS, DO Referring Provider Active Start: June 17, [...] BAILEYC, DO Primary Care Provider Active Start: June [...] 20, 2024 End: July 20, 2024 Farzaneh Kt VSC, DO Referring Provider Active Start: July 20, 2024 End: July 20, 2024 Caroline Stern SOFTWARE SUPPORT TECHNICIAN, SOFTWARE SUPPORT TECHNICIAN-C Attending Provider Active Start: July 20, 2024 [...] 2024 End: August 17, 2024 Caroline Stern SOFTWARE SUPPORT TECHNICIAN, SOFTWARE SUPPORT TECHNICIAN-C Attending Provider Active Start: August 17, 2024 End: August 17, 2024 Team Status: Inactive Member Role Status Dates Farzaneh Meraz VSC, DO Primary Care Provider Active Start: August 17, 2024 End: August 17, 2024 Caroline Stern SOFTWARE SUPPORT TECHNICIAN, SOFTWARE SUPPORT TECHNICIAN-C Attending Provider Active Start: August 17, 2024 [...] October 26, 2024 End: October 26, 2024 Farzanehphoebe Mreaz VSC, DO Referring Provider Active Start: October 26, 2024 End: October 26, 2024 Dr. Pam Koo MD Attending Provider Active Start: October 26, 2024 End: October 26, 2024 Team Status: Inactive Member Role Status Dates Farzaneh BAILEYC, DO Primary Care Provider Active Start: October [...] 16, 2024 End: November 16, 2024 Farzaneh Meraz VSC, DO Referring Provider Active Start: November 16, 2024 End: November 16, 2024 Dr. Pam Koo MD Attending Provider Active Start: November 16, 2024 End: November 16, 2024 Team Status: Inactive Member Role Status Dates Farzaneh Meraz VSC, DO Primary Care Provider Active Start: November 25, 2024 End: November 25, 2024 Farzaneh Meraz VSC, DO Referring Provider Active Start: November 25, 2024 End: November 25, 2024 Dr. Pam Koo MD Attending Provider Active Start: November 25, 2024 End: November 25, 2024 Team Status: Inactive Member Role Status Dates Farzaneh Meraz VSC, DO Primary Care Provider Active Start: December 09, 2024 End: December 09, 2024 Farzaneh BAILEYC, DO Referring Provider Active Start: December 09, 2024 End: December 09, 2024 Justina Guido CNM Attending Provider Active Start: December 09, 2024 End: December 09, 2024 Team Status: Inactive Member Role Status Dates Farzaneh BAILEYC, DO Primary Care Provider Active Start: December 19, 2024 End: December 19, 2024 Farzaneh BAILEYC, DO Referring Provider Active Start: December 19, [...] 29, 2024 End: December 29, 2024 Farzaneh MATIAS, DO Referring Provider Active Start: December 29, [...] 05, 2025 End: January 05, 2025 Farzaneh Meraz VSC, DO Referring Provider Active Start: January 05, 2025 End: January 05, 2025 Dr. Pam Koo MD Attending Provider Active Start: January 05, 2025 End: January 05, 2025 Team Status: Active Member Role/Relationship Status Dates Farzaneh Meraz VSC, [...] November 04, 2024 Farzaneh Meraz VSC, DO Referring Provider Active Start: November [...] 29, 2024 End: December 29, 2024 Farzaneh Meraz VSC, DO Referring [...] 05, 2025 End: January 05, 2025 Farzaneh Meraz VSC, DO Referring Provider Active Start: January 05, 2025 End: January 05, 2025 Dr. Pam Koo MD Attending Provider Active Start: January 05, 2025 End: January 05, 2025 Team Status: Inactive Member Role/Relationship Status Dates Farzaneh Meraz VSC, DO Primary Care Provider Active Start: January 12, 2025 End: January 12, 2025 Farzaneh Meraz VSC, DO Referring Provider Active Start: January 12, 2025 End: January 12, 2025 Dr. Pam Koo MD Attending Provider Active Start: January 12, 2025 End: January 12, 2025 Team Status: Inactive Member Role/Relationship Status [...] 2024 End: October 28, 2024 Dr. Pam oKo MD Attending Provider Active Start: October 28, [...] November 04, 2024 Farzaneh Meraz VSC, DO Referring Provider Active Start: November [...] 29, 2024 End: December 29, 2024 Farzaneh Meraz VSC, DO Referring [...] 05, 2025 End: January 05, 2025 Farzaneh Meraz VSC, DO Referring Provider Active Start: January 05, 2025 End: January 05, 2025 Dr. Pam Koo MD Attending Provider Active Start: January 05, 2025 End: January 05, 2025 Team Status: Inactive Member Role/Relationship Status Dates Farzaneh Meraz VSC, DO Primary Care Provider Active Start: January 12, 2025 End: January 12, 2025 Farzaneh Meraz VSC, DO Referring Provider Active Start: January 12, 2025 End: January 12, 2025 Dr. Pam Koo MD Attending Provider Active Start: January 12, 2025 End: January 12, 2025 Team Status: Inactive Member Role/Relationship Status Dates Farzaneh Meraz VSC, DO Primary Care Provider Active Start: January 16, 2025 End: January 18, 2025 Reshma Driscoll CNM Admit Provider Active Start : January 16, 2025 End: January 18, 2025 Reshma Driscoll CNM Attending Provider Active S tart: January 16, 2025 End: January 18, 2025 Reshma Driscoll CNM Referring Provider Active S tart: January 16, 2025 End: January 18, 2025 Team Status: Active Member Role/Relationship Status Dates Farzaneh Meraz VSC, DO Primary Care Provider Active Start: January 16, 2025 Reshma Driscoll CNM Admit Provider Active Start : January 16, 2025 Reshma Driscoll CNM Attending Provider Active S tart: January 16, 2025 Reshma Driscoll CNM Referring Provider Active S tart: January 16, 2025 Reshma Driscoll CNM Other Provider Active Start : January 16, 2025 Team Status: Active Member Role/Relationship Status Dates Farzaneh Meraz VSC, DO Primary Care Provider Active Start: January 17, 2025 Rehsma Driscoll CNM Admit Provider Active Start : January 17, 2025 Reshma Driscoll CNM Attending Provider Active S tart: January 17, 2025 Reshma Driscoll CNM Referring Provider Active S tart: January 17, 2025 Reshma Driscoll CNM Other Provider Active Start : January 17, 2025 Team Status: Active Member Role/Relationship Status Dates Farzaneh Meraz VSC, DO Primary Care Provider Active Start: January 18, 2025 Reshma Driscoll CNM Admit Provider Active Start : January 18, 2025 Reshma Driscoll CNM Referring Provider Active S tart: January 18, 2025 Reshma Driscoll CNM Other Provider Active Start : January 18, 2025 Caroline Stern SOFTWARE SUPPORT TECHNICIAN, SOFTWARE SUPPORT TECHNICIAN-C Attending Provider Active Start: January 18, 2025 Team Status: Inactive Member Role/Relationship Status Dates Dr. Moises Mazariegos MD Attending Provider Active Sta rt: November 04, 2024 End: November 04, 2024 Farzaneh Meraz VSC, DO Primary Care Provider Active Start: November 04, 2024 End: November 04, 2024 Farzaneh Meraz VSC, DO Referring Provider Active Start: November 04, 2024 End: November 04, 2024 Team Status: Inactive Member Role/Relationship Status Dates Farzaneh Meraz VSC, DO Primary Care Provider Active Start: November 16, 2024 End: November 16, 2024 Farzaneh Meraz VSC, DO Referring Provider Active Start: November [...] End: December 19, 2024 Dr. Keshia Galvez DO Attending Provider Activ e Start: December 19, 2024 End: December 19, 2024 Team Status: Inactive Member Role/Relationship Status Dates Farzaneh Meraz VSC, DO Primary Care Provider Active Start: December 19, 2024 End: December 19, 2024 Dr. Keshia Galvez DO [...] 29, 2024 End: December 29, 2024 Farzaneh Kt VSC, DO Referring Provider [...] 12, 2025 End: January 12, 2025 Farzaneh Kt VSC, DO Referring Provider Active Start: January 12, 2025 End: January 12, 2025 Dr. Pam Koo MD Attending Provider Active Start: January 12, 2025 End: January 12, 2025 Team Status: Inactive Member Role/Relationship Status Dates Farzaneh Kt VSC, DO Primary Care Provider Active Start: January 16, 2025 End: January 18, 2025 Reshma Driscoll CNM Admit Provider Active Start : January 16, 2025 End: January 18, 2025 Reshma Driscoll CNM Attending Provider Active S tart: January 16, 2025 End: January 18, 2025 Reshma Americo , CNM Referring Provider Active S tart: January 16, 2025 End: January 18, 2025 Team Status: Active Member Role/Relationship Status Dates Farzaneh BAILEYC, DO Primary Care Provider Active Start: January 16, 2025 Reshma Driscoll CNM Admit Provider Active Start : January 16, 2025 Reshma Driscoll CNM Attending Provider Active S tart: January 16, 2025 Reshma Driscoll CNM Referring Provider Active S tart: January 16, 2025 Reshma Driscoll CNM Other Provider Active Start : January 16, 2025 Team Status: Active Member Role/Relationship Status Dates Farzaneh BAILEYC, DO Primary Care Provider Active Start: January 17, 2025 Reshma Driscoll CNM Admit Provider Active Start : January 17, 2025 Reshma Driscoll CNM Attending Provider Active S tart: January 17, 2025 Reshma Driscoll CNM Referring Provider Active S tart: January 17, 2025 Reshma Driscoll CNM Other Provider Active Start : January 17, 2025 Team Status: Active Member Role/Relationship Status Dates Farzaneh BAILEYC, DO Primary Care Provider Active Start: January 18, 2025 Reshma Driscoll CNM Admit Provider Active Start : January 18, 2025 Reshma Driscoll CNM Referring Provider Active S tart: January 18, 2025 Reshma Driscoll CNM Other Provider Active Start : January 18, 2025 Caroline Stern SOFTWARE SUPPORT TECHNICIAN, SOFTWARE SUPPORT TECHNICIAN-C Attending Provider Active Start: January 18, 2025 Team Status: Inactive Member Role/Relationship Status Dates Farzaneh BAILEYC, DO Primary Care Provider Active Start: February 27, 2025 End: February 27, 2025 Farzaneh BAILEYC, DO Referring Provider Active Start: February 27, 2025 End: February 27, 2025 Dr. Keshia Galvez , DO Attending Provider Activ e Start: February 27, 2025 End: February 27, 2025 Team Status: Active Member Role/Relationship Status Dates Farzaneh BAILEYC, DO Primary Care Provider Active Start: February 27, 2025 Dr. Keshia Galvez , DO Attending Provider Activ e Start: February 27, 2025 Dr. Keshia Galvez , DO Referring Provider Activ e Start: February 27, 2025 Team Status: Inactive Member Role/Relationship Status Dates Farzaneh Meraz [facility], DO Primary Care Provider Active Start: February 27, 2025 End: February 27, 2025 Dr. Keshia Galvez DO Attending Provider Activ e Start: February 27, 2025 End: February 27, 2025 Dr. Keshia Galvez DO Referring Provider Activ e Start: February 27, 2025 End: February 27, 2025 FOR RECORDS PERTAINING TO PATIENTS WHO [...] BE BASED ON THE PRIMARY CLINICAL RECORDS. [facility] [employer] provides no warranty or guarantee of the accuracy or completeness of information in this document.
== END | disposition home or self-care (01) ==
LOC: VSLAB 11:56
PROVIDERS: PCP Family Medicine; Referring Provider Nurse Practitioner Family; Visit Provider Nurse Practitioner Family
DX: E03.9 Hypothyroidism, unspecified (principal); R53.83 Other fatigue; R59.9 Enlarged lymph nodes, unspecified
CPT/HCPCS: 36415; 80053; 82306; 82607; 82728; 83540; 83550; 84439; 84443; 85025; 86376; 86800

== ENCOUNTER → 2025-07-04 | Outpatient (CLI) | payer BC, SELFPAY ==
--- NOTE | 2025-07-04 11:59 | US_ITS ---
PROCEDURE: THYROID 07/04/2025 REASON FOR EXAM: ENLARGE LYMPH NODES TECHNIQUE: Procedure Code: USTHY Modality: US Procedure: THYROID COMPARISON: None FINDINGS: Right thyroid lobe size: 4.5 x 1.4 x 1.3 cm Left thyroid lobe size: 4.0 x 1.3 x 1.1 cm Isthmus: 0.1 cm Background parenchymal echotexture is heterogenous No thyroid nodules visualized. US/Thyroid IMPRESSION: Heterogenous thyroid, correlate with thyroid function test and thyroiditis. No thyroid nodule. RECOMMENDATION: Based on most suspicious nodule. Nodule size = largest diameter Only evaluate nodule if =>5 mm. Growth > 20% in 2 dimensions = worsening. Follow up to 4 nodules. Recommend biopsy for no more than 2 nodules. Reading Location: [facility]
--- NOTE | 2025-07-04 12:01 | US_ITS ---
EXAM: Soft tissue Sonogram CLINICAL HISTORY: Mass within the medial left axilla COMPARISON: none TECHNIQUE: Targeted soft tissue sonogram of the left axilla US/Axilla - Left IMPRESSION: Within the left medial axilla, there is a 3.9 x 4.3 x 1.1 cm isoechoic nonvascu lar structure likely a lipoma. Reading Location: [facility]
== END | disposition home or self-care (01) ==
LOC: US 11:56
PROVIDERS: PCP Family Medicine; Referring Provider Nurse Practitioner Family; Visit Provider Nurse Practitioner Family
DX: E06.9 Thyroiditis, unspecified (principal); R59.9 Enlarged lymph nodes, unspecified
CPT/HCPCS: 76536; 76882